=== PATIENT | male | born 1945 | race Caucasian/White ===

== ENCOUNTER 2023-05-21 13:05 | Emergency (ER) | payer MEDICARE, OTHER, SELFPAY ==
--- NOTE | ~2023-05-21 | CT_ITS ---
EXAMINATION: CT brain wo con DATE: 05/21/2023 15:27 INDICATION: Altered mental status . TECHNIQUE: Computed tomography (CT) of the head was performed without intravenous contrast. The mA wa s adjusted according to patient size. Iterative reconstruction technique was employed. The dose-lengt h product was 681.00 mGy-cm. COMPARISON: None. FINDINGS: Motion artifact is present near the vertex. No acute intracranial hemorrhage or extra-axial fluid col lection. No hydrocephalus, mass, or herniation. No acute ischemic infarct. Unremarkable dural venous sinus attenuation. No acute osseous abnormality. Minimal left maxillary and ethmoid mucosal thickening, the remaining aerated spaces are clear. Mild atrophy and chronic white matter change. Atherosclerotic intracranial calcification. 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 Right lens replacement. IMPRESSION: No acute intracranial process. Reviewed, dictated and finalized at location K. S MANAGER
--- NOTE | ~2023-05-21 | XR_ITS ---
EXAMINATION: XR chest 1V portable INDICATION: Weakness TECHNIQUE: Portable AP chest at 1345 hours COMPARISON: None available FINDINGS: The lungs are free of acute opacities. The heart size is normal. No pleural effusion or pne umothorax. IMPRESSION: 1. No acute cardiopulmonary abnormality. Reviewed, dictated and finalized at location L. DENTIAL REMODELING SUBCONTRACTOR
--- NOTE | 2023-05-21 13:13 | ECG_ITS ---
Measurements Intervals [place] Rate: 91 P: 61 CT: 254 QRS: 2 QRSD: 116 T: 34 QT: 386 QTc: 477 Interpretive Statements SINUS RHYTHM WITH FIRST DEGREE AV BLOCK RIGHT BUNDLE BRANCH BLOCK [120+ ms QRS DURATION, UPRIGHT V1, 40+ ms S IN I/aVL/V4/V5/V6] ABNORMAL ELECTROCARDIOGRAM NO PREVIOUS ECG AVAILABLE FOR COMPARISON Electronically Signed On 05-21-2023 15:39:50 SIMONIZER by Silvestre Llanos M.D.
[2023-05-21 13:15] VITALS: BP 164/86; PULSE 91; RESP 16; TEMP 37; O2SAT 100
[2023-05-21 13:37] LABS: Basophils Percent Auto 1.1 % (0.2-1.2); Eosinophils Absolute Auto 0.2 K/mm3 (0-0.3); Eosinophils Percent Auto 6.1 % (0-4.4); Hematocrit 38.7 % (42.0-52.0); Hemoglobin 12.7 g/dL (14.0-18.0); Immature Granulocyte Absolute 0.02 K/mm3 (0.00-0.031); Immature Granulocyte Percent A 0.5 % (0-0.5); Lymphocytes Absolute Auto 1.22 K/mm3 (0.9-3.2); Lymphocytes Percent Auto 32.6 % (18.3-44.2); Mean Corpuscular HGB Conc 32.8 g/dl (32-36); Mean Corpuscular Hemoglobin 31.7 pg (26-34); Mean Corpuscular Volume 96.5 fl (80-100); Mean Platelet Volume 12.8 fl (7.4-10.4); Monocytes Absolute Auto 0.5 K/mm3 (0.1-0.6); Monocytes Percent Auto 12.3 % (2.6-8.5); Neutrophils Absolute Auto 1.8 K/mm3 (1.3-6.7); Neutrophils Percent Auto 47.4 % (45.5-73.1); Platelet Count Result 107 k/mm3 (150-375); Red Blood Count 4.01 M/mm3 (4.6-6.20); Red Cell Distribution Width 14.6 % (11.5-14.5); White Blood Count 3.7 K/mm3 (4.5-10.0)
--- NOTE | 2023-05-21 13:43 | ECG_ITS ---
Measurements Intervals [place] Rate: 127 P: 254 GA: 220 QRS: 17 QRSD: 126 T: -65 QT: 329 QTc: 478 Interpretive Statements POOR ECG QUALITY BECAUSE OF BASELINE ARTIFACT ATRIAL FLUTTER WITH RAPID VENTRICULAR RESPONSE INDETERMINATE AXIS RIGHT BUNDLE BRANCH BLOCK [120+ ms QRS DURATION, UPRIGHT V1, 40+ ms S IN I/aVL/V4/V5/V6] ABNORMAL ECG Electronically Signed On 05-21-2023 15:40:49 WHEEL PRESS OPERATOR by Silvestre Llanos M.D.
--- NOTE | 2023-05-21 13:48 | PC.NURSE ---
HR increased repeat EKG
[2023-05-21 13:52] LABS: Alanine Aminotransferase 23 U/L (6-50); Albumin Level 3.6 g/dL (3.5-5.1); Alkaline Phosphatase 110 U/L (38-126); Anion Gap 3 mmol/L (8-16); Aspartate Amino Transferase 27 U/L (17-59); Bilirubin,Total 0.8 mg/dL (0.2-1.3); Blood Urea Nitrogen 17 mg/dL (9-20); Calcium 9.4 mg/dL (8.4-10.2); Carbon Dioxide 26 mmol/L (22-30); Chloride 108 mmol/L (98-107); Estimated CRCL calculation 110 ml/min; Estimated Glomerular Filt Rate > 60; Glucose 152 mg/dL (65-110); Potassium 4.2 mmol/L (3.4-5.0); Sodium 137 mmol/L (137-145)
[2023-05-21 14:16] VITALS: BP 159/94; PULSE 91; RESP 16; TEMP 36.6; O2SAT 99
[2023-05-21 14:37] LABS: Appearance Urine Clear (Clear); Bacteria Urine None Seen /hpf; Bilirubin Urine Negative (Negative); Blood Urine 2+ (Negative); Color Urine Yellow (Yellow); Glucose Urine UA Trace mg/dL (Negative); Ketones Urine Trace mg/dL (Negative); Leukocyte Esterase Ur Trace LEU/UL (Negative); Need Manual Microscopic Reviewed; Nitrate Urine Negative (Negative); Non Pathogenic Casts 0-2; Protein Urine Trace mg/dL (Negative); RBC Urine 51-100 /hpf (0-2); Specific Grav Ur 1.022 (1.001-1.035); Squamous Epithelial Cell Urine None seen /hpf (Few); Urobilinogen Urine 0.2 mg/dL (<2.0); pH Urine 5.5 (5.0-9.0)
[2023-05-21 14:38] LABS: Add Urine Microscopic? YES
[2023-05-21 15:01] VITALS: BP 148/85; PULSE 97; RESP 17; TEMP 36.7; O2SAT 97
[2023-05-21 15:49] LABS: Acetaminophen < 10 ug/mL (10-30); Ethanol < 10 mg/dL (<10); Salicylate < 1.0 mg/dL (2-20)
[2023-05-21 16:01] VITALS: BP 157/98; PULSE 101; RESP 17; TEMP 36.6; O2SAT 100
--- NOTE | 2023-05-21 16:18 | PC.NURSE ---
pt took his own sumatripin from home
--- NOTE | 2023-05-21 16:22 | ED.GENADULT ---
HPI - General Adult General Chief complaint: Weakness Stated complaint: altered LOC Time Seen by Provider: 05/21/23 14:01 History of Present Illness HPI narrative: This is a 78-year-old male, with history of TBI, PTSD, brought in by EMS for altered mental status. The patient's daughter states she found him sitting in a chair with eyes closed. He reportedly refused to speak, but held onto his cane. On arrival, EMS notes the patient was responsive to pain elicited on palpation of the right shoulder but otherwise did not respond to stimulus. Vital signs otherwise unremarkable. On interview, the patient states he was seated last night watching TV, when he saw bright white light and felt a sharp headache. He next recalls waking in the emergency department with EMS at bedside. He complains of chronic headache and anxiety related to his PTSD (triggered by hospitals). Related Data Allergies Allergy/AdvReac Type Severity Reaction Status Date / Time bacitracin Allergy Other Verified 05/21/23 16:12 [From Polysporin(bacitracin base)] neomycin Allergy Other Verified 05/21/23 16:12 [From Neosporin ([id number])] Penicillins Allergy Other Verified 05/21/23 16:12 polymyxin B Allergy Other Verified 05/21/23 16:12 [From Polysporin(bacitracin base)] tetracycline Allergy Other Verified 05/21/23 16:12 Review of Systems Review of Systems: CONSTITUTIONAL: Denies fever, chills, or sweats. CARDIOVASCULAR: Denies chest pain, palpitations, or edema. RESPIRATORY: Denies cough or dyspnea. GASTROINTESTINAL: Denies abdominal pain, nausea, vomiting, or diarrhea. GENITOURINARY: Denies dysuria or hematuria. SKIN: Denies rash or itching. MUSCULOSKELETAL: Denies back pain, joint pain, or myalgia. NEUROLOGIC: Headache Denies numbness, dizziness, or weakness. PSYCHIATRIC: Denies anxiety or depression. Exam Narrative: GENERAL: Well-developed, well-nourished, and in no acute distress. HEAD: Normocephalic, atraumatic. healing abrasion of the anterior nasal bridge EYES: PERRLA and EOMI. ENT: Mucous membranes moist. Oropharynx without tonsillar hypertrophy exudate or other lesions. = CHEST: Clear to auscultation. No respiratory distress. No wheezes rales or rhonchi HEART: Regular rate and rhythm. No murmur heard. Normal peripheral pulses. ABDOMEN: Soft, nontender, nondistended, normal active bowel sounds. EXTREMITIES: Normal range of motion. No edema. SKIN: Warm, dry, no rash. NEURO: Alert and oriented x3. No focal deficit. Moving all 4 limbs spontaneously PSYCH: Normal mood and affect. Course Course Emergency Course: 16:24 - CT head not concerning for acute intracranial process. CBC demonstrates mildly decreased white blood cell count of 3.7 and anemia of hemoglobin 12.7 ( baseline unknown ) but is otherwise unremarkable. Chemistries unremarkable. UA demonstrates trace glucose and ketones with RBCs and white blood cells, I suspect this is related to attempt to straight cath. UA not concerning for UTI in my opinion. Salicylates, acetaminophen and alcohol level negative. Chest x-ray not concerning for acute cardiopulmonary process. Initial EKG not concerning for ischemia, the patient developed tachycardia, though at the time appeared agitated with an episode of PTSD. patient is alert an oriented x3. I do not suspect an acute medical problem at this time. I suspect the patient's symptoms related to PTSD. Will trial ambulation. If the patient is study in able will discharge. I discussed these findings recommendations with the patient's daughter and the patient. They are comfortable with the plan. 17:08 - The patient was able ambulate well. Will discharge. Vital Signs Vital signs: Vital Signs Temperature 98.6 F 05/21/23 13:15 Pulse Rate 91 05/21/23 13:15 Respiratory Rate 16 05/21/23 13:15 Blood Pressure 164/86 H 05/21/23 13:15 Pulse Oximetry 100 05/21/23 13:15 Oxygen Delivery Room Air 05/21/23 1
--- NOTE | 2023-05-21 16:39 | PC.NURSE ---
ambulated in [place] without difficulty, gait steady.
[2023-05-21 17:00] VITALS: BP 148/78; PULSE 78; RESP 16; TEMP 36.7; O2SAT 100
--- NOTE | 2023-05-21 17:00 | PCCCNOTE ---
Abbey Salguero ([phone]) requested to speak to CC as father recently moved to the area from [place] after his spouse passed. His spouse was his primary caregiver and now dtr is trying to help him. He has [facility] and his records were just sent from the clinic in [place] so he can begin care with [facility] in this area. Dtr was given the VA resources and list of phone numbers. She was also given a list of private duty and home health agencies that would have to be ordered through his PCP when he gets established. She was also given the [facility] pamphlet in case the [facility] can't provide enough assistance. He currently lives in an apartment next to her but will be moving to another apt that is further away but in the same complex.
[2023-05-21 17:07] LABS: Amphetamine Screen Urine Negative (Negative); Barbiturate Screen Urine Negative (Negative); Benzodiazepines Screen Urine Negative (Negative); Cannabinoid Screen Urine Negative (Negative); Cocaine Screen Urine Negative (Negative); Methadone Screen Urine Negative (Negative); Opiate Screen Urine Positive (Negative); Phencyclidine Screen Urine Negative (Negative)
== END 2023-05-21 17:23 | disposition home or self-care (01) ==
PROVIDERS: Emergency Provider Preventive Medicine Aerospace Medicine
DX: F43.12 Post-traumatic stress disorder, chronic (principal); Z87.820 Personal history of traumatic brain injury; G43.909 Migraine, unspecified, not intractable, without status migrainosus; Z79.899 Other long term (current) drug therapy
CPT/HCPCS: 36415; 70450; 71045; 80053; 80307; 81001; 85025; 87086; 93005; 99284

== ENCOUNTER 2025-01-05 12:00 | Inpatient (IN) | payer MEDICARE, OTHER, SELFPAY ==
[2025-01-05] VITALS (17 sets, daily range): BP systolic 91–142; BP diastolic 55–91; PULSE 78–158; RESP 12–24; TEMP 36.3–36.8; O2SAT 94–100; BMI 35.4
--- NOTE | ~2025-01-05 | CT_ITS ---
EXAMINATION: CT abdomen pelvis w con DATE: 01/05/2025 14:14 INDICATION: Nausea, vomiting, and diarrhea. TECHNIQUE: Computed tomography (CT) of the abdomen and pelvis was performed with 100 mL Omnipaque 350 intravenous contrast. Automated exposure control and iterative reconstruction technique were employed. The dose-length product was 2903.06 mGy-cm. COMPARISON: None. FINDINGS: The visualized portions of the lung bases demonstrate mild atelectasis. No pleural effusion. The heart size is normal. No pericardial effusion. The liver demonstrates hypertrophy of left lateral segment and surface nodularity, consistent with cirrhosis. The gallbladder, spleen, pancreas, and adrenal glands are normal. There is cortical thinning of the kidneys. There is a 6 mm stone in left kidney. The prostate is mildly enlarged. There are no dilated loops of bowel. There are changes of appendectomy. There are no pathologically enlarged lymph nodes. There is no free intraperitoneal fluid. 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 There is severe lumbar spondylosis. There is mild chronic anterior wedging of multiple vertebral bodies. IMPRESSION: 1. Cirrhosis of the liver with portal venous hypertension. Reviewed, dictated and finalized at location E.
--- NOTE | 2025-01-05 12:42 | PC.NURSE ---
Daughter to intake desk and reports that pt passed out. When nurse approached pt, pt is awake and talking. c/o dizziness. Pt taken to triage for repeat vs and passed out again for a few seconds.
[2025-01-05 13:01] LABS: Hematocrit 41.3 % (42.0-52.0); Hemoglobin 13.6 g/dL (14.0-18.0); Immature Granulocyte Percent A 1.0 % (0-0.5); Lymphocytes Absolute Auto 1.13 K/mm3 (0.9-3.2); Mean Corpuscular HGB Conc 32.9 g/dl (32-36); Mean Corpuscular Hemoglobin 31.6 pg (26-34); Mean Corpuscular Volume 96.0 fl (80-100); Nucleated Red Blood Cells Absolute Auto 0.000 K/mm3 (0.0-0.012); Nucleated Red Blood Cells Perc 0.0 % (0.0-0.2); Platelet Count Result 165 k/mm3 (150-375); Red Blood Count 4.30 M/mm3 (4.6-6.20); White Blood Count 6.7 K/mm3 (4.5-10.0)
[2025-01-05 13:12] LABS: Alanine Aminotransferase 27 U/L (6-50); Albumin Level 3.5 g/dL (3.5-5.1); Alkaline Phosphatase 92 U/L (38-126); Anion Gap 9 mmol/L (4-12); Aspartate Amino Transferase 36 U/L (17-59); Bilirubin,Total 0.8 mg/dL (0.2-1.3); Blood Urea Nitrogen 14 mg/dL (9-20); Calcium 9.3 mg/dL (8.4-10.2); Carbon Dioxide 28 mmol/L (22-30); Chloride 97 mmol/L (98-107); Estimated CRCL calculation 86 ml/min; Estimated Glomerular Filt Rate > 60; Glucose 200 mg/dL (65-110); Lipase 73 U/L (23-300); Potassium 3.5 mmol/L (3.4-5.0); Sodium 134 mmol/L (137-145); Total Protein 6.8 g/dL (6.3-8.2)
--- NOTE | 2025-01-05 13:12 | ECG_ITS ---
Test Date: 2025-01-05 13:16:31 Measurements Intervals [place]ball Rate: 101 P: 0 VA: 0 QRS: -38 QRSD: 137 T: 1 QT: 353 QTc: 458 Interpretive Statements ATRIAL FIBRILLATION WITH RAPID VENTRICULAR RESPONSE CHANGES TO SINUS RHYTHM LEFT AXIS DEVIATION RIGHT BUNDLE BRANCH BLOCK BASELINE ARTIFACT- I, II, III, AVR, AVL, AVF, V1-V6 ABNORMAL ECG No previous ECG available for comparison Electronically Signed On 01-05-2025 14:23:25 CDT by Jim Arnold D.O.
[2025-01-05] MEDS: LACTATED RINGERS 1,000 ML 999 ML IV CONT (14:00)
[2025-01-05] MEDS: ONDANSETRON INJ 4 MG/2 ML VIAL IV PUSH (14:00)
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
[2025-01-05 14:45] LABS: Influenza A QL RT-PCR Negative (Negative); Influenza B QL RT-PCR Negative (Negative); SARS-CoV-2 RNA PCR Negative (Negative)
[2025-01-05 14:52] LABS: Add Urine Microscopic? YES; Appearance Urine Clear (Clear); Glucose Urine UA Negative (Negative); Leukocyte Esterase Ur Negative LEU/UL (Negative); Need Manual Microscopic Reviewed; Nitrate Urine Negative (Negative); Non Pathogenic Casts >20; Specific Grav Ur > 1.045 (1.001-1.035)
--- NOTE | 2025-01-05 15:24 | PC.NURSE ---
BSR completed with AR RN; patient was resting eyes closed at that time.
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
--- NOTE | 2025-01-05 17:16 | ADMGEN ---
This patient, Roni Matthews, was admitted to Medical Room 243-. Patient/family oriented to hospital policies and general routines including ID bracelet, bed and alarms, visiting hours, pain management, procedures, bathroom and other care routines, personal items, smoking policy, room service/diet, and visiting hours. Information on how to activate the Rapid Response Team has been discussed. Patient/Family are encouraged to report perceived risks to care and to ask questions if they do not understand what they are told or what they should do.
[2025-01-05] MEDS: LACTATED RINGERS 1,000 ML 125 ML IV CONT (17:26)
[2025-01-05] MEDS: ACETAMINOPHEN 325 MG TABLET 650 MG PO (18:51)
[2025-01-05] MEDS: PREGABALIN (*CRX) 75 MG CAPSULE PO (22:37)
[2025-01-05] MEDS: diphenhydrAMINE HCl CAP 25 MG CAPSULE PO (22:37)
[2025-01-05] MEDS: CIPROFLOXACIN HCL 0.3% OP SOLN 2.5 ML BTL 1 DROP EACH EYE (22:39)
[2025-01-05] MEDS: LOPERAMIDE HCL 2 MG CAPSULE PO (23:28)
[2025-01-06] VITALS (9 sets, daily range): BP systolic 90–175; BP diastolic 48–77; PULSE 56–77; RESP 12–18; TEMP 36.2–36.8; O2SAT 93–98
[2025-01-06] MEDS: LACTATED RINGERS 1,000 ML 125 ML IV CONT ×2 (01:31→12:19)
[2025-01-06 05:14] LABS: Hematocrit 30.8 % (42.0-52.0); Hemoglobin 10.1 g/dL (14.0-18.0); Immature Granulocyte Percent A 1.0 % (0-0.5); Lymphocytes Absolute Auto 1.03 K/mm3 (0.9-3.2); Mean Corpuscular HGB Conc 32.8 g/dl (32-36); Mean Corpuscular Hemoglobin 31.8 pg (26-34); Mean Corpuscular Volume 96.9 fl (80-100); Nucleated Red Blood Cells Absolute Auto 0.000 K/mm3 (0.0-0.012); Nucleated Red Blood Cells Perc 0.0 % (0.0-0.2); Platelet Count Result 111 k/mm3 (150-375); Red Blood Count 3.18 M/mm3 (4.6-6.20); White Blood Count 4.0 K/mm3 (4.5-10.0)
[2025-01-06 05:36] LABS: Alanine Aminotransferase 15 U/L (6-50); Albumin Level 2.5 g/dL (3.5-5.1); Alkaline Phosphatase 66 U/L (38-126); Anion Gap 3 mmol/L (4-12); Aspartate Amino Transferase 23 U/L (17-59); Bilirubin,Total 0.6 mg/dL (0.2-1.3); Blood Urea Nitrogen 13 mg/dL (9-20); Calcium 8.1 mg/dL (8.4-10.2); Carbon Dioxide 33 mmol/L (22-30); Chloride 96 mmol/L (98-107); Estimated CRCL calculation 72 ml/min; Estimated Glomerular Filt Rate > 60; Glucose 121 mg/dL (65-110); Magnesium 1.5 mg/dL (1.6-2.3); Potassium 2.7 mmol/L (3.4-5.0); Sodium 132 mmol/L (137-145); Total Protein 5.1 g/dL (6.3-8.2)
[2025-01-06] MEDS: POTASSIUM CHLORIDE INJ 40 MEQ in SODIUM CHLORIDE 0.9% IV 500 ML 130 MEQ IVPB (07:03)
[2025-01-06] MEDS: MAGNESIUM SULF 4 GM/WATER100ML 4 GM/100 ML BAG IVPB (07:04)
[2025-01-06] MEDS: POTASSIUM CHLORIDE 20 MEQ ER TABLET 40 MEQ PO (07:05)
[2025-01-06] MEDS: LOPERAMIDE HCL 2 MG CAPSULE PO ×3 (07:05→17:08)
[2025-01-06] MEDS: diphenhydrAMINE HCl CAP 25 MG CAPSULE PO (07:05)
[2025-01-06] MEDS: CIPROFLOXACIN HCL 0.3% OP SOLN 2.5 ML BTL 1 DROP EACH EYE ×5 (07:06→20:40)
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
[2025-01-06] MEDS: PANTOPRAZOLE 40 MG TABLET PO (10:07)
[2025-01-06] MEDS: ASPIRIN 81 MG CHEWABLE TABLET PO (10:07)
[2025-01-06] MEDS: PREGABALIN (*CRX) 75 MG CAPSULE PO ×2 (10:07→17:08)
[2025-01-06] MEDS: DIVALPROEX SODIUM ER 500 MG TAB.24H 1000 MG PO (10:07)
[2025-01-06 13:25] LABS: Anion Gap 3 mmol/L (4-12); Blood Urea Nitrogen 13 mg/dL (9-20); Calcium 7.9 mg/dL (8.4-10.2); Carbon Dioxide 32 mmol/L (22-30); Chloride 95 mmol/L (98-107); Estimated CRCL calculation 80 ml/min; Estimated Glomerular Filt Rate > 60; Glucose 201 mg/dL (65-110); Magnesium 2.4 mg/dL (1.6-2.3); Potassium 4.0 mmol/L (3.4-5.0); Sodium 130 mmol/L (137-145)
[2025-01-06] MEDS: ACETAMINOPHEN 325 MG TABLET 650 MG PO (14:36)
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
[2025-01-06] MEDS: INSULIN ASPART (*BKC) 100 UNITS/ML SUB-Q (17:09)
[2025-01-06] MEDS: ACETAMINOPHEN/CODEINE (*CRX) 300/30 MG TABLET 1 TAB PO (22:59)
[2025-01-07] VITALS (8 sets, daily range): BP systolic 105–120; BP diastolic 44–64; PULSE 62–97; RESP 16–20; TEMP 36.4–36.8; O2SAT 93–99
[2025-01-07 03:50] LABS: Hematocrit 33.0 % (42.0-52.0); Hemoglobin 10.8 g/dL (14.0-18.0); Immature Granulocyte Percent A 1.1 % (0-0.5); Lymphocytes Absolute Auto 1.12 K/mm3 (0.9-3.2); Mean Corpuscular HGB Conc 32.7 g/dl (32-36); Mean Corpuscular Hemoglobin 32.0 pg (26-34); Mean Corpuscular Volume 97.9 fl (80-100); Nucleated Red Blood Cells Absolute Auto 0.000 K/mm3 (0.0-0.012); Nucleated Red Blood Cells Perc 0.0 % (0.0-0.2); Platelet Count Result 109 k/mm3 (150-375); Red Blood Count 3.37 M/mm3 (4.6-6.20); White Blood Count 3.6 K/mm3 (4.5-10.0)
[2025-01-07 04:08] LABS: Iron 23 ug/dL (49-181)
[2025-01-07 04:10] LABS: Alanine Aminotransferase 18 U/L (6-50); Albumin Level 2.6 g/dL (3.5-5.1); Alkaline Phosphatase 93 U/L (38-126); Anion Gap 4 mmol/L (4-12); Aspartate Amino Transferase 27 U/L (17-59); Bilirubin,Total 0.4 mg/dL (0.2-1.3); Blood Urea Nitrogen 15 mg/dL (9-20); Calcium 7.9 mg/dL (8.4-10.2); Carbon Dioxide 31 mmol/L (22-30); Chloride 97 mmol/L (98-107); Estimated CRCL calculation 63 ml/min; Estimated Glomerular Filt Rate 59; Glucose 209 mg/dL (65-110); Magnesium 2.1 mg/dL (1.6-2.3); Potassium 3.8 mmol/L (3.4-5.0); Sodium 132 mmol/L (137-145); Total Protein 5.4 g/dL (6.3-8.2)
[2025-01-07 04:17] LABS: Percent Iron Saturation 14 % (20-50)
[2025-01-07 04:40] LABS: Hepatitis B Surface Antigen Negative (Negative)
[2025-01-07 04:44] LABS: Ferritin 55.20 ng/mL (11.1-264)
[2025-01-07 04:46] LABS: HAV RESULT Negative (Negative); Hepatitis B Core IgM Result Negative (Negative)
[2025-01-07] MEDS: INSULIN ASPART (*BKC) 100 UNITS/ML SUB-Q ×2 (08:26→12:06)
[2025-01-07] MEDS: LORATADINE 10 MG TABLET PO (08:29)
[2025-01-07] MEDS: FERROUS GLUCONATE 324 MG TABLET PO (08:29)
[2025-01-07] MEDS: PANTOPRAZOLE 40 MG TABLET PO (08:29)
[2025-01-07] MEDS: ASPIRIN 81 MG CHEWABLE TABLET PO (08:29)
[2025-01-07] MEDS: DIVALPROEX SODIUM ER 500 MG TAB.24H 1000 MG PO (08:29)
[2025-01-07] MEDS: PREGABALIN (*CRX) 75 MG CAPSULE PO (08:29)
[2025-01-07] MEDS: ACETAMINOPHEN 325 MG TABLET 650 MG PO (08:37)
[2025-01-07] MEDS: INSULIN GLARGINE (*BKC) 100 UNITS/ML 20 UNITS SUB-Q (12:04)
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
[2025-01-11 12:08] LABS: ANA by IFA Rfx Titer/Pattern Positive (.)
== END 2025-01-07 14:43 | disposition home or self-care (01) | DRG 392 ==
LOC: ANHED 14:23 → ANH2MED 16:55
PROVIDERS: Internal Medicine; Internal Medicine Gastroenterology; Student in an Organized Health Care Education/Training Program; Admitting Provider Family Medicine; Emergency Provider Student in an Organized Health Care Education/Training Program; Visit Provider Physician Assistant
DX: A08.4 Viral intestinal infection, unspecified (principal); K76.6 Portal hypertension; I10 Essential (primary) hypertension; I48.91 Unspecified atrial fibrillation; E86.0 Dehydration; E11.9 Type 2 diabetes mellitus without complications; D50.9 Iron deficiency anemia, unspecified; K57.30 Diverticulosis of large intestine without perforation or abscess without bleeding; K74.60 Unspecified cirrhosis of liver; F43.10 Post-traumatic stress disorder, unspecified; F60.3 Borderline personality disorder; Z20.822 Contact with and (suspected) exposure to COVID-19; Z79.82 Long term (current) use of aspirin; Z87.891 Personal history of nicotine dependence
CPT/HCPCS: 36415; 74177; 80048; 80053; 80074; 80164; 81001; 82103; 82104; 82728; 82948; 83540; 83550; 83690; 83735; 85025; 86015; 86038; 86381; 87636; 93005; 96361; 96374; 97161; 99285; A9270; G0378; J1815; J2405; J3475; J3480; J7040; J7120; Q9967

== ENCOUNTER 2025-01-08 22:15 | Emergency (ER) | payer MEDICARE, OTHER, SELFPAY ==
--- NOTE | ~2025-01-08 | CT_ITS ---
EXAMINATION: CT abdomen pelvis w con DATE: 01/09/2025 03:53 INDICATION: Abdominal pain. Vomiting. TECHNIQUE: Computed tomography (CT) of the abdomen and pelvis was performed with 100 mL Omnipaque 350 intravenous contrast. Automated exposure control and iterative reconstruction technique were employed. The dose-length product was 1475.25 mGy-cm. COMPARISON: CT abdomen and pelvis 01/05/2025 FINDINGS: The visualized portions of the lung bases demonstrate mild atelectasis. No pleural effusion. The heart size is normal. No pericardial effusion. Paraesophageal varices are noted. There is liver surface nodularity, consistent with cirrhosis. The gallbladder, spleen, pancreas, and adrenal glands are normal. There is cortical thinning of the kidneys. There is a 5 mm stone in left kidney. The prostate is mildly enlarged. There are no dilated loops of bowel. There are changes of appendectomy. There are no pathologically enlarged lymph nodes. There is a small volume of pelvic ascites. There is severe lumbar spondylosis. IMPRESSION: 1. Cirrhosis of the liver with portal venous hypertension. 2. Small volume of pelvic ascites. Reviewed, dictated and finalized at location E.
[2025-01-08 22:14] VITALS: BP 153/74; PULSE 76; RESP 20; TEMP 36.6; O2SAT 96
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
[2025-01-08] MEDS: ONDANSETRON INJ 4 MG/2 ML VIAL IV PUSH (23:50)
[2025-01-08] MEDS: FAMOTIDINE 20 MG/2 ML VIAL IV PUSH (23:50)
[2025-01-08 23:51] VITALS: BP 158/86; PULSE 68; RESP 15; TEMP 36.7; O2SAT 100
[2025-01-08 23:52] LABS: Add Urine Microscopic? NO; Appearance Urine Clear (Clear); Glucose Urine UA 2+ mg/dL (Negative); Leukocyte Esterase Ur Negative LEU/UL (Negative); Nitrate Urine Negative (Negative); Specific Grav Ur 1.024 (1.001-1.035)
[2025-01-08 23:54] VITALS: BP 158/86; PULSE 70; RESP 11; O2SAT 100
[2025-01-09] VITALS (18 sets, daily range): BP systolic 99–153; BP diastolic 58–99; PULSE 63–91; RESP 12–19; TEMP 36.8–37.1; O2SAT 96–100
[2025-01-09 00:07] LABS: Hematocrit 36.8 % (42.0-52.0); Hemoglobin 11.9 g/dL (14.0-18.0); Immature Granulocyte Percent A 1.2 % (0-0.5); Lymphocytes Absolute Auto 1.06 K/mm3 (0.9-3.2); Mean Corpuscular HGB Conc 32.3 g/dl (32-36); Mean Corpuscular Hemoglobin 31.6 pg (26-34); Mean Corpuscular Volume 97.6 fl (80-100); Nucleated Red Blood Cells Absolute Auto 0.000 K/mm3 (0.0-0.012); Nucleated Red Blood Cells Perc 0.0 % (0.0-0.2); Platelet Count Result 125 k/mm3 (150-375); Red Blood Count 3.77 M/mm3 (4.6-6.20); White Blood Count 4.3 K/mm3 (4.5-10.0)
[2025-01-09 00:10] LABS: Alanine Aminotransferase 19 U/L (6-50); Albumin Level 3.1 g/dL (3.5-5.1); Alkaline Phosphatase 96 U/L (38-126); Anion Gap 4 mmol/L (4-12); Aspartate Amino Transferase 25 U/L (17-59); Bilirubin,Total 0.4 mg/dL (0.2-1.3); Blood Urea Nitrogen 14 mg/dL (9-20); Calcium 8.2 mg/dL (8.4-10.2); Carbon Dioxide 30 mmol/L (22-30); Chloride 100 mmol/L (98-107); Estimated CRCL calculation 108 ml/min; Estimated Glomerular Filt Rate > 60; Glucose 173 mg/dL (65-110); Lipase 63 U/L (23-300); Potassium 4.2 mmol/L (3.4-5.0); Sodium 134 mmol/L (137-145); Total Protein 6.3 g/dL (6.3-8.2)
--- NOTE | 2025-01-09 05:32 | PC.NURSE ---
Pt discharged at 0510, attempted to call daughter to come and pick out hand. No answer. Pt will remain in room until we are able to make contact with the daughter as he has no pants.
--- NOTE | 2025-01-09 05:41 | PC.NURSE ---
Second message left for daughter.
--- NOTE | 2025-01-09 06:27 | PC.NURSE ---
Able to reach daughter and she is on her way.
== END 2025-01-09 06:54 | disposition home or self-care (01) ==
PROVIDERS: Emergency Provider Physician Assistant
DX: R10.13 Epigastric pain (principal); I10 Essential (primary) hypertension; E11.9 Type 2 diabetes mellitus without complications; Z87.891 Personal history of nicotine dependence; K74.60 Unspecified cirrhosis of liver; K76.6 Portal hypertension; Z79.84 Long term (current) use of oral hypoglycemic drugs; Z79.82 Long term (current) use of aspirin; Z79.899 Other long term (current) drug therapy
CPT/HCPCS: 36415; 74177; 80053; 81003; 83690; 85025; 96374; 96375; 99284; J2405; Q9967

== ENCOUNTER 2025-01-20 13:48 | Inpatient (IN) | payer MEDICARE, OTHER, SELFPAY ==
--- NOTE | ~2025-01-20 | NM_ITS ---
EXAMINATION: NM_HEPATWP_NM DATE: 01/22/2025 14:43 INDICATION: Nausea and vomiting. COMPARISON: CT 01/21/2025 TECHNIQUE: 5.1 mCi Tc-99m mebrofenin (Choletec) was administered intravenously. Scintigraphic images of the abdomen were obtained for one hour. Then, 2.5 mcg sincalide (Kinevac) IV was administered, and imaging was continued for 30 minutes. FINDINGS: There is normal clearance of radiotracer from the blood pool. There is homogeneous tracer uptake by the liver. Activity progresses to the bowel and gallbladder. Gallbladder ejection fraction (GBEF) was 78%. Note that most patients with gallbladder dysfunction have GBEF < 35%, which overlaps with the broad normal range of 10-90%. IMPRESSION: 1. Normal hepatobiliary scintigraphy. Reviewed, dictated and finalized at location E.
--- NOTE | ~2025-01-20 | CT_ITS ---
Exam: CT chest, abdomen and pelvis with contrast Clinical History: [Abdominal pain. Nausea and vomiting ] Comparison: [01/09/2025 and 01/05/2025 Technique: Multiple axial CT images of the chest, abdomen and pelvis were obtained with IV contrast. Sagittal and coronal reformatted images were obtained. FINDINGS: Lung bases: Small reticular opacities in the lower lungs likely atelectasis or scarring. Liver: Micronodular appearance to the surface of the liver similar to the prior study suggestive of cirrhosis. No intrahepatic biliary ductal dilatation. There are gastric, splenic and esophageal varices similar to the prior study. Gallbladder: Gallbladder wall thickening with a small amount of pericholecystic fat stranding. Common bile duct: [ Normal caliber.] [ No stones.] Spleen: Mild thyromegaly similar to the prior study. Pancreas: [ No mass. No pancreatic fluid collection.] Adrenals: [ No masses.] Kidneys: [ No masses. No hydronephrosis.][. Small nonobstructing left renal stones similar to the prior study.] Lymph nodes: [ No adenopathy in the abdomen or pelvis.] Stomach, small bowel and colon: Moderate amount of stool. Concentric thickening of the holley of the rectum. Differential includes incomplete rectal wall distention, proctitis or mass. Correlate clinically. Prior surgical changes noted in the right lower abdomen. Peritoneum cavity: Small amount of fluid in the pelvis. Bladder: [ Unremarkable.] Osseous structures: [ No acute fracture lesion.] [ Multilevel degenerative change in the visualized spine.] Bones appear osteopenic. Abdominal aorta: [ No aneurysm.] Additional findings: Prostate gland is mildly enlarged. IMPRESSION: 1. Gallbladder wall thickening with a small amount of pericholecystic fat stranding. Acute cholecystitis is possible. Consider an ultrasound of the gallbladder or HIDA scan for further assessment. 2. Micronodular appearance to the surface of the liver similar to the prior study suggestive of cirrhosis. 3. There are gastric, splenic and esophageal varices similar to the prior study. 4. Concentric thickening of the holley of the rectum. Differential includes incomplete rectal wall distention, proctitis or mass. Correlate clinically. Reviewed, dictated and finalized at location Q. IMPRESSION: 1. Gallbladder wall thickening with a small amount of pericholecystic fat darryn kan. Acute cholecystitis is possible. Consider an ultrasound of the gallbladde r or HIDA scan for further assessment. 2. Micronodular appearance to the surface of the liver similar to the prior srini dy suggestive of cirrhosis. 3. There are gastric, splenic and esophageal varices similar to the prior study . 4. Concentric thickening of the holley of the rectum. Differential includes inco mplete rectal wall distention, proctitis or mass. Correlate clinically.
--- NOTE | ~2025-01-20 | US_ITS ---
LIMITED ABDOMINAL ULTRASOUND INDICATION: Abnormal gallbladder on CT. Nausea and vomiting COMPARISON: Nuclear medicine hepatobiliary study from today. CT abdomen and pelvis from yesterday. FINDINGS: Liver: Visualized portions of the liver are normal. Common bile duct: Dilated distally at 7 mm. No filling defects are seen. Gallbladder: The gallbladder wall is mildly thickened. No stones or sludge were seen. Horta's sign: Negative Pancreas: The imaged portions appear normal. Right kidney: Right kidney appears normal on the images provided. IMPRESSION: Mild gallbladder wall thickening. Dilated distal CBD. Reviewed, dictated and finalized at location A.
[2025-01-20 13:50] VITALS: BP 130/75; PULSE 89; RESP 18; TEMP 36.9; O2SAT 100
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
[2025-01-20 16:34] LABS: Hematocrit 40.0 % (42.0-52.0); Hemoglobin 13.3 g/dL (14.0-18.0); Immature Granulocyte Percent A 0.6 % (0-0.5); Lymphocytes Absolute Auto 1.13 K/mm3 (0.9-3.2); Mean Corpuscular HGB Conc 33.3 g/dl (32-36); Mean Corpuscular Hemoglobin 32.1 pg (26-34); Mean Corpuscular Volume 96.6 fl (80-100); Nucleated Red Blood Cells Absolute Auto 0.000 K/mm3 (0.0-0.012); Nucleated Red Blood Cells Perc 0.0 % (0.0-0.2); Platelet Count Result 114 k/mm3 (150-375); Red Blood Count 4.14 M/mm3 (4.6-6.20); White Blood Count 4.7 K/mm3 (4.5-10.0)
[2025-01-20] MEDS: PANTOPRAZOLE SODIUM IV 40 MG VIAL IV PUSH (16:48)
[2025-01-20] MEDS: METOCLOPRAMIDE HCL INJ 10 MG/2 ML VIAL IV PUSH (16:48)
[2025-01-20 16:54] LABS: Alanine Aminotransferase 19 U/L (6-50); Albumin Level 3.3 g/dL (3.5-5.1); Alkaline Phosphatase 98 U/L (38-126); Anion Gap 6 mmol/L (4-12); Aspartate Amino Transferase 22 U/L (17-59); Bilirubin,Total 0.8 mg/dL (0.2-1.3); Blood Urea Nitrogen 16 mg/dL (9-20); Calcium 8.5 mg/dL (8.4-10.2); Carbon Dioxide 28 mmol/L (22-30); Chloride 100 mmol/L (98-107); Estimated CRCL calculation 85 ml/min; Estimated Glomerular Filt Rate > 60; Glucose 197 mg/dL (65-110); Lipase 96 U/L (23-300); Potassium 3.7 mmol/L (3.4-5.0); Sodium 134 mmol/L (137-145); Total Protein 6.3 g/dL (6.3-8.2)
[2025-01-20 17:26] LABS: Add Urine Microscopic? YES; Appearance Urine Clear (Clear); Glucose Urine UA 3+ mg/dL (Negative); Leukocyte Esterase Ur Negative LEU/UL (Negative); Nitrate Urine Negative (Negative); Non Pathogenic Casts 0-2; Specific Grav Ur 1.034 (1.001-1.035)
[2025-01-20] MEDS: fentaNYL CITRATE INJ (*CRX) 100 MCG/2 ML VIAL 50 MCG IV PUSH (17:57)
[2025-01-20 19:49] VITALS: PULSE 85; RESP 18; O2SAT 98
[2025-01-20 22:12] VITALS: BMI 35.1
--- NOTE | 2025-01-20 22:23 | ADMGEN ---
This patient, Roni Matthews, was admitted to [facility] Surg Room 312-01. Patient/family oriented to hospital policies and general routines including ID bracelet, bed and alarms, visiting hours, pain management, procedures, bathroom and other care routines, personal items, smoking policy, room service/diet, and visiting hours. Information on how to activate the Rapid Response Team has been discussed. Patient/Family are encouraged to report perceived risks to care and to ask questions if they do not understand what they are told or what they should do.
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
[2025-01-20 22:46] VITALS: BP 128/63; PULSE 93; RESP 16; TEMP 36.4; O2SAT 98
[2025-01-20] MEDS: PREGABALIN (*CRX) 75 MG CAPSULE PO (23:44)
[2025-01-21] VITALS (8 sets, daily range): BP systolic 82–118; BP diastolic 53–64; PULSE 70–94; RESP 12–20; TEMP 36.1–36.9; O2SAT 94–95
[2025-01-21] MEDS: SODIUM CHLORIDE 0.9% IV 1,000 ML 100 ML IV CONT (04:55)
[2025-01-21 05:39] LABS: Ammonia < 9 umol/L (9-30)
[2025-01-21 05:51] LABS: Hematocrit 36.5 % (42.0-52.0); Hemoglobin 11.8 g/dL (14.0-18.0); Immature Platelet Fraction Pct 11.3 % (0.9-11.2); Mean Corpuscular HGB Conc 32.3 g/dl (32-36); Mean Corpuscular Hemoglobin 32.0 pg (26-34); Mean Corpuscular Volume 98.9 fl (80-100); Platelet Count Result 74 k/mm3 (150-375); Red Blood Count 3.69 M/mm3 (4.6-6.20); White Blood Count 3.3 K/mm3 (4.5-10.0)
[2025-01-21 06:19] LABS: Anion Gap 6 mmol/L (4-12); Blood Urea Nitrogen 16 mg/dL (9-20); Calcium 8.3 mg/dL (8.4-10.2); Carbon Dioxide 28 mmol/L (22-30); Chloride 100 mmol/L (98-107); Estimated CRCL calculation 78 ml/min; Estimated Glomerular Filt Rate > 60; Glucose 144 mg/dL (65-110); Potassium 3.5 mmol/L (3.4-5.0); Sodium 134 mmol/L (137-145)
--- NOTE | 2025-01-21 07:05 | P.PNIM_ITS ---
Progress Note: A&P Assessment and Plan (1) Adult failure to thrive: Code(s): R62.7 - Adult failure to thrive Status: Acute Assessment and Plan: Patient reports that he is unable to care for himself due to intractable back pain. Has a been dependent on buying food that can be delivered because he cannot prepare his own meals. He does have some trace ketones in his urine suggesting at least some mild dehy dration likely due to nausea/vomiting. Given 1L NS. Appears euvolemic on exam. Continue Protonix. Physical therapy and occupational therapy consulted for recommendations for discharge disposition. Care coordination consult has been placed to help with arranging placement. Will order the patient's home Tylenol with codeine and Lyrica. (2) Nausea & vomiting: Qualifiers: Vomiting type: unspecified Qualified Code(s): R11.2 - Nausea with vomiting, unspecified Code(s): R11.2 - Nausea with vomiting, unspecified Status: Acute Assessment and Plan: Possibly related the [place] food however he continues to endorse nausea and generalized abdominal pain. Vomiting has resolved. Tolerating diet. Will obtain a CT abd/pelvis to assess since patient continues to have abdominal tenderness on exam and nausea (3) Atrial fibrillation: Code(s): I48.91 - Unspecified atrial fibrillation Status: Acute Assessment and Plan: EKG on 01/05 showing Afib RVR however quickly converted back and remains in sinus rhythm on exam States history of irregular heart rhythm many years ago that he believes was atrial fibrillation Remains on ASA, carvedilol. Patient states followed with his PCP Dr. Canc[facility] recently and he is continuing a cardiology workup including a heart monitor, further workup and medications to be started per PCP following workup. (4) Cirrhosis: Qualifiers: Ascites presence: unspecified Hepatic cirrhosis type: unspecified hepatic cirrhosis Qualified Code(s): K74.60 - Unspecified cirrhosis of liver Code(s): K74.60 - Unspecified cirrhosis of liver Status: Acute Assessment and Plan: Cirrhosis with portal venous hypertension diagnosed on 01/05 as seen on imaging Evaluated by GI during prior admission and noted probably related to [facility] Patient to follow up with GI in the outpatient office (5) Hypertension: Qualifiers: Hypertension type: primary hypertension Qualified Code(s): I10 - Essential (primary) hypertension Code(s): I10 - Essential (primary) hypertension Status: Chronic Assessment and Plan: Chronic, continue home medications - carvedilol 12.5 mg daily - blood pressures reviewed and stable (6) Borderline personality disorder: Code(s): F60.3 - Borderline personality disorder Status: Chronic Assessment and Plan: Ammonia level WNL Continue depakote (7) DM type 2 (diabetes mellitus, type 2): Qualifiers: Diabetes mellitus complication status: without complication 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: without chcf use Qualified Code(s): E11.9 - Type 2 diabetes mellitus without complications Code(s): E11.9 - Type 2 diabetes mellitus without complications Status: Chronic Assessment and Plan: - hypoglycemia protocol - POC blood glucose ACHS - home medication - metformin 1000 mg BID currently on hold - correct regimen ordered - low dose TIDWM Time Spent With Patient Time with patient: 25 - 35 minutes Subjective Date/time seen: 01/21/25 07:05 Interval history: 79-year-old male with a past medical history of cirrhosis, type 2 diabetes mellitus on oral medications, PTSD, borderline personality disorder, chronic back pain, diverticulitis, duodenal ulcer and essential hypertension who presented to the hospital for recurrent nausea vomiting. Patient is pleasant lying comfortably in bed. He continues to endorse weakness that he relates more to his back pain that is chronic. He denies any associated dizziness or lightheadedness. He is also endorsing ongoing nausea and abdominal pain. He states that he tolerated his breakfast well and denies any recurrence of vomiting. He continues to have bowel movements and is flatus. He has no other complaints denying chest pain, shortness breath, and palpitations Review of Systems Review of Systems: All systems reviewed & are unremarkable except as noted in HPI and below Exam Narrative: AF HR 70 RR 12 Spo2 95 BP 115/53 General: male in no acute respiratory distress who is nontoxic appearing, lying semi recumbent in bed. HEENT: Normocephalic. Atraumatic. Extraocular movement intact. Sclera clear and anicteric.No facial asymmetry. Chest: Lungs are clear to auscultation bilaterally. No wheezes or crackles. CV: Heart was regular rate and rhythm. Abd: Abdomen was soft. Generalized tenderness without guarding. Nondistended. Positive bowel sounds. Ext: No clubbing, cyanosis, or edema. DP pulses bilaterally. Neuro: Patient is alert. Speech is clear. Objective Data Vital Signs Vital Signs: Vital Signs - 24 hr 01/20/25 13:50 01/20/25 19:49 01/20/25 22:46 Temperature 98.5 F 97.6 F Pulse Rate 89 85 93 Respiratory Rate 18 18 16 Blood Pressure 130/75 128/63 Pulse Oximetry 100 98 98 Oxygen Delivery Room Air 01/20/25 22:46 01/21/25 06:00 Temperature 97.5 F L Pulse Rate 70 Respiratory Rate 12 Blood Pressure 115/53 L Pulse Oximetry 95 Oxygen Delivery Room Air Intake/Output Intake/Output: Intake & Output 01/18/25 01/19/25 01/20/25 01/21/25 23:59 23:59 23:59 23:59 Intake Total 200 Balance 200 Meds/Results Medications: Active Medications Generic Name Dose Route Start Last Admin Trade Name Freq PRN Reason Stop Dose Admin Acetaminophen/Codeine Phosphate 1 tab 01/20/25 22:42 Acetaminophen/Codeine (*Crx) 300/30 Mg Tablet PO Q6H PRN pain 7-10 Aspirin 81 mg 01/21/25 09:00 Aspirin 81 Mg Enteric Tablet PO QAM [facility] Carvedilol 12.5 mg 01/20/25 22:45 01/20/25 23:44 Carvedilol 12.5 Mg Tablet PO 12.5 mg Q12HR SATHISH Administration Dextrose 12.5 gm 01/21/25 02:31 Dextrose 50% 25 Gm/50 Ml Syringe IV PUSH PRN PRN Hypoglycemia Protocol Divalproex Sodium 500 mg 01/21/25 08:00 Divalproex Sodium Er 500 Mg Tab.24h PO DAILY@0800 [facility] Ferrous Gluconate 324 mg 01/21/25 08:00 Ferrous Gluconate 324 Mg Tablet PO DAILY@0800 [facility] Glucagon 1 mg 01/21/25 02:31 Glucagon For Inj 1 Mg Vial IM PRN PRN Hypoglycemia Protocol Glucose 15 gm 01/21/25 02:31 Glucose Oral Gel 15 Gm Of Glucse In 37.5 Gm Tube PO PRN PRN Hypoglycemia Protocol Sodium Chloride 1,000 mls @ 100 mls/hr 01/21/25 02:30 01/21/25 04:55 Normal Saline Iv IV CONT 01/21/25 12:29 100 mls/hr .Q10H SATHISH Administration Dextrose 1,000 mls @ 100 mls/hr 01/21/25 02:31 Dextrose 5% 1,000 Ml IVPB PRN PRN Hypoglycemia Protocol Insulin Aspart 2 - 5 units 01/21/25 08:00 Insulin Aspart (*Bkc) 100 Units/Ml SUB-Q TIDWM [facility] Protocol Loratadine 10 mg 01/21/25 09:00 Loratadine 10 Mg Tablet PO QAM [facility] Ondansetron HCl 4 mg 01/20/25 18:17 Ondansetron Inj 4 Mg/2 Ml Vial IV PUSH Q4H PRN Nausea Pantoprazole Sodium 40 mg 01/21/25 09:00 Pantoprazole Sodium Iv 40 Mg Vial IV PUSH QAM [facility] Pantoprazole Sodium 40 mg 01/21/25 09:00 Pantoprazole 40 Mg Tablet PO QAM [facility] Pregabalin 75 mg 01/20/25 22:45 01/20/25 23:44 Pregabalin (*Crx) 75 Mg Capsule PO 75 mg BID [facility] Administration Sumatriptan Succinate 25 mg 01/21/25 02:10 Sumatriptan Succinate 25 Mg Tablet PO Q2H PRN Migraine Headache Labs Labs: Laboratory Results - last 24 hr 01/20/25 01/20/25 01/20/25 16:28 17:05 20:59 WBC 4.7 RBC 4.14 L Hgb 13.3 L Hct 40.0 L MCV 96.6 MCH 32.1 MCHC 33.3 RDW 14.4 Plt Count 114 L MPV 12.1 H Immature Gran % (Auto) 0.6 H Neut % (Auto) 58.5 Lymph % (Auto) 24.2 [place] % (Auto) 12.2 H Eos % (Auto) 3.2 Baso % (Auto) 1.3 H Lymph # (Auto) 1.13 [place] # (Auto) 0.6 Eos # (Auto) 0.2 Baso # (Auto) 0.1 Abs Immat Gran (auto) 0.03 Absolute Neuts (auto) 2.7 Absolute Nucleated RBC 0.000 Nucleated RBC % 0.0 % Immature Plt Fraction Sodium 134 L Potassium 3.7 Chloride 100 Carbon Dioxide 28 Anion Gap 6 BUN 16 Creatinine 0.86 Estim Creat Clear Calc 85 Estimated GFR > 60 Glucose 197 H POC Capillary Glucose 152 H Calcium 8.5 Total Bilirubin 0.8 AST 22 ALT 19 Alkaline Phosphatase 98 Ammonia Total Protein 6.3 Albumin 3.3 L Lipase 96 Urine Color Dark yellow Urine Appearance Clear Urine pH 5.0 Ur Specific [place] 1.034 Urine Protein 1+ H Urine Glucose (UA) 3+ H Urine Ketones Trace H Ur Blood (Man) Negative Urine Nitrate Negative Urine Bilirubin Negative Urine Urobilinogen 1.0 Leukocyte Esterase Rfl Negative Urine RBC 0-2 Urine WBC 0-5 Ur Squamous Epith Cells None seen Urine Bacteria None seen Urine Casts 0-2 01/21/25 05:25 WBC 3.3 L RBC 3.69 L Hgb 11.8 L Hct 36.5 L MCV 98.9 MCH 32.0 MCHC 32.3 RDW 14.3 Plt Count 74 L MPV 13.2 H Immature Gran % (Auto) Neut % (Auto) Lymph % (Auto) [place] % (Auto) Eos % (Auto) Baso % (Auto) Lymph # (Auto) [place] # (Auto) Eos # (Auto) Baso # (Auto) Abs Immat Gran (auto) Absolute Neuts (auto) Absolute Nucleated RBC Nucleated RBC % % Immature Plt Fraction 11.3 H Sodium 134 L Potassium 3.5 Chloride 100 Carbon Dioxide 28 Anion Gap 6 BUN 16 Creatinine 0.95 Estim Creat Clear Calc 78 Estimated GFR > 60 Glucose 144 H POC Capillary Glucose Calcium 8.3 L Total Bilirubin AST ALT Alkaline Phosphatase Ammonia < 9 L Total Protein Albumin Lipase Urine Color Urine Appearance Urine pH Ur Specific [place] Urine Protein Urine Glucose (UA) Urine Ketones Ur Blood (Man) Urine Nitrate Urine Bilirubin Urine Urobilinogen Leukocyte Esterase Rfl Urine RBC Urine WBC Ur Squamous Epith Cells Urine Bacteria Urine Casts Quality VTE Prophylaxis VTE prophylaxis: pharmacologic ordered
[2025-01-21] MEDS: PREGABALIN (*CRX) 75 MG CAPSULE PO ×2 (11:46→17:00)
[2025-01-21] MEDS: DIVALPROEX SODIUM ER 500 MG TAB.24H PO (11:46)
[2025-01-21] MEDS: PANTOPRAZOLE 40 MG TABLET PO (11:46)
[2025-01-21] MEDS: FERROUS GLUCONATE 324 MG TABLET PO (11:46)
[2025-01-21] MEDS: ASPIRIN 81 MG ENTERIC TABLET PO (11:47)
[2025-01-21] MEDS: LORATADINE 10 MG TABLET PO (11:47)
[2025-01-21] MEDS: INSULIN ASPART (*BKC) 100 UNITS/ML SUB-Q ×2 (12:46→17:00)
[2025-01-21] MEDS: SODIUM CHLORIDE 0.9% IV 500 ML IV CONT (15:53)
[2025-01-22 05:04] VITALS: BP 115/59; PULSE 77; RESP 20; TEMP 36.7; O2SAT 94
--- NOTE | 2025-01-22 07:44 | P.PNIM_ITS ---
Progress Note: A&P Assessment and Plan (1) Adult failure to thrive: Code(s): R62.7 - Adult failure to thrive Status: Acute Assessment and Plan: Patient reports that he is unable to care for himself due to intractable back pain. Has a been dependent on buying food that can be delivered because he cannot prepare his own meals. He does have some trace ketones in his urine suggesting at least some mild dehy dration likely due to nausea/vomiting. Given 1L NS. Appears euvolemic on exam. Continue Protonix. Physical therapy and occupational therapy consulted for recommendations for discharge disposition. Care coordination consult has been placed to help with arranging placement. Will order the patient's home Tylenol with codeine and Lyrica. (2) Nausea & vomiting: Qualifiers: Vomiting type: unspecified Qualified Code(s): R11.2 - Nausea with vomiting, unspecified Code(s): R11.2 - Nausea with vomiting, unspecified Status: Acute Assessment and Plan: Possibly related the [place] food however he continues to endorse nausea and generalized abdominal pain. Vomiting has resolved. Tolerating diet. CT abdomen pelvis showed gallbladder wall thickening with a small amount of pericholecystic fat stranding. Acute cholecystitis is possible. Consider an ultrasound of the gallbladder or HIDA scan for further assessment. Zofran for ongoing nausea, continues to tolerate a diet Surgery consulted Ultrasound and HIDA scan have been ordered but are pending. Okay for patient to try a low-fat diet once testing is done. Further plans pending the results of these tests. (3) Abnormal abdominal CT scan: Code(s): R93.5 - Abnormal findings on diagnostic imaging of other abdominal regions, including retroperitoneum Status: Acute Assessment and Plan: CT abdomen/pelvis: Concentric thickening of the holley of the rectum. Differential includes incomplete rectal wall distention, proctitis or mass. Per patient last colonoscopy approximately 11 years ago at the [place] which was unremarkable WBC WNL. Denies rectal pain and rectal discharge. Will hold abx at this time. Denies any rectal bleeding or abnormal stools GI consulted (4) Atrial fibrillation: Code(s): I48.91 - Unspecified atrial fibrillation Status: Acute Assessment and Plan: EKG on 01/05 showing Afib RVR however quickly converted back and remains in sinus rhythm on exam States history of irregular heart rhythm many years ago that he believes was atrial fibrillation Remains on ASA, carvedilol. Patient states followed with his PCP Dr. Cancino at [place] recently and he is continuing a cardiology workup including a heart monitor, further workup and medications to be started per PCP following workup. 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 as seen on imaging Evaluated by GI during prior admission and noted probably related to [facility] Patient to follow up with GI in the outpatient office (6) Hypertension: Qualifiers: Hypertension type: primary hypertension Qualified Code(s): I10 - Essential (primary) hypertension Code(s): I10 - Essential (primary) hypertension Status: Chronic Assessment and Plan: Chronic, continue home medications - carvedilol 12.5 mg daily - blood pressures reviewed and stable (7) Borderline personality disorder: Code(s): F60.3 - Borderline personality disorder Status: Chronic Assessment and Plan: Ammonia level WNL Continue depakote (8) DM type 2 (diabetes mellitus, type 2): Qualifiers: Diabetes mellitus complication status: without complication 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 Qualified Code(s): E11.9 - Type 2 diabetes mellitus without complications Code(s): E11.9 - Type 2 diabetes mellitus without complications Status: Chronic Assessment and Plan: - hypoglycemia protocol - POC blood glucose ACHS - home medication - metformin 1000 mg BID currently on hold - correct regimen ordered - low dose TIDWM Time Spent With Patient Time with patient: 25 - 35 minutes Subjective Date/time seen: 01/22/25 07:44 Interval history: 79-year-old male with a past medical history of cirrhosis, type 2 diabetes mellitus on oral medications, PTSD, borderline personality disorder, chronic back pain, diverticulitis, duodenal ulcer and essential hypertension who presented to the hospital for recurrent nausea vomiting. Patient is pleasant sitting up comfortably in bed. He continues to endorse slight nausea and abdominal pain but denies any associated vomiting. He states that he continues to tolerate his diet. He denies any rectal, bloody stools, or rectal discharge. He has no other chest pain shortness a breath, palpitations. Review of Systems Review of Systems: All systems reviewed & are unremarkable except as noted in HPI and below Exam Narrative: AF HR 77 RR 20 SPO2 94 BP 115/59 General: male in no acute respiratory distress who is nontoxic appearing, lying semi recumbent in bed. HEENT: Normocephalic. Atraumatic. Extraocular movement intact. Sclera clear and anicteric.No facial asymmetry. Chest: Lungs are clear to auscultation bilaterally. No wheezes or crackles. CV: Heart was regular rate and rhythm. Abd: Abdomen was soft. Generalized tenderness without guarding. Nondistended. Positive bowel sounds. Ext: No clubbing, cyanosis, or edema. DP pulses bilaterally. Neuro: Patient is alert. Speech is clear. Objective Data Vital Signs Vital Signs: Vital Signs - 24 hr 01/21/25 11:19 01/21/25 11:46 01/21/25 13:53 Temperature 97.0 F L Pulse Rate 70 94 Respiratory Rate 16 Blood Pressure 100/54 L Pulse Oximetry 95 Oxygen Delivery Room Air 01/21/25 14:20 01/21/25 14:45 01/21/25 16:59 Temperature Pulse Rate Respiratory Rate Blood Pressure 82/58 L 118/62 Pulse Oximetry Oxygen Delivery Room Air 01/21/25 20:35 01/21/25 20:38 01/21/25 21:24 Temperature 98.5 F Pulse Rate 85 81 Respiratory Rate 20 Blood Pressure 115/64 Pulse Oximetry 94 Oxygen Delivery Room Air 01/21/25 23:18 01/22/25 05:04 Temperature 98.1 F Pulse Rate 77 Respiratory Rate 20 Blood Pressure 115/59 L Pulse Oximetry 94 94 Oxygen Delivery Room Air Intake/Output Intake/Output: Intake & Output 01/19/25 01/20/25 01/21/25 01/22/25 23:59 23:59 23:59 23:59 Intake Total 3950 240 Output Total 350 400 Balance 3600 -160 Meds/Results Medications: Active Medications Generic Name Dose Route Start Last Admin Trade Name Freq PRN Reason Stop Dose Admin Acetaminophen/Codeine Phosphate 1 tab 01/20/25 22:42 Acetaminophen/Codeine (*Crx) 300/30 Mg Tablet PO Q6H PRN pain 7-10 Aspirin 81 mg 01/21/25 09:00 01/21/25 11:47 Aspirin 81 Mg Enteric Tablet PO 81 mg QAM SATHISH Administration Carvedilol 12.5 mg 01/20/25 22:45 01/21/25 20:35 Carvedilol 12.5 Mg Tablet PO 12.5 mg Q12HR SATHISH Administration Dextrose 12.5 gm 01/21/25 02:31 Dextrose 50% 25 Gm/50 Ml Syringe IV PUSH PRN PRN Hypoglycemia Protocol Divalproex Sodium 500 mg 01/21/25 08:00 01/21/25 11:46 Divalproex Sodium Er 500 Mg Tab.24h PO 500 mg DAILY@0800 SATHISH Administration Enoxaparin Sodium 40 mg 01/22/25 09:00 Enoxaparin 40 Mg/0.4 Ml Syringe SUB-Q DAILY [facility] Ferrous Gluconate 324 mg 01/21/25 08:00 01/21/25 11:46 Ferrous Gluconate 324 Mg Tablet PO 324 mg DAILY@0800 [facility] Administration Glucagon 1 mg 01/21/25 02:31 Glucagon For Inj 1 Mg Vial IM PRN PRN Hypoglycemia Protocol Glucose 15 gm 01/21/25 02:31 Glucose Oral Gel 15 Gm Of Glucse In 37.5 Gm Tube PO PRN PRN Hypoglycemia Protocol Dextrose 1,000 mls @ 100 mls/hr 01/21/25 02:31 Dextrose 5% 1,000 Ml IVPB PRN PRN Hypoglycemia Protocol Insulin Aspart 2 - 5 units 01/21/25 08:00 01/22/25 07:43 Insulin Aspart (*Bkc) 100 Units/Ml SUB-Q Not Given TIDWM [facility] Protocol Loratadine 10 mg 01/21/25 09:00 01/21/25 11:47 Loratadine 10 Mg Tablet PO 10 mg QAM [facility] Administration Ondansetron HCl 4 mg 01/20/25 18:17 Ondansetron Inj 4 Mg/2 Ml Vial IV PUSH Q4H PRN Nausea Pantoprazole Sodium 40 mg 01/21/25 09:00 01/21/25 11:46 Pantoprazole 40 Mg Tablet PO 40 mg QAM [facility] Administration Pregabalin 75 mg 01/20/25 22:45 01/21/25 17:00 Pregabalin (*Crx) 75 Mg Capsule PO 75 mg BID [facility] Administration Sumatriptan Succinate 25 mg 01/21/25 02:10 Sumatriptan Succinate 25 Mg Tablet PO Q2H PRN Migraine Headache Radiology Results: ITS Impressions Abdomen/Pelvis CT 01/21/25 16:19 IMPRESSION: 1. Gallbladder wall thickening with a small amount of pericholecystic fat stranding. Acute cholecystitis is possible. Consider an ultrasound of the gallbladder or HIDA scan for further assessment. 2. Micronodular appearance to the surface of the liver similar to the prior study suggestive of cirrhosis. 3. There are gastric, splenic and esophageal varices similar to the prior study. 4. Concentric thickening of the holley of the rectum. Differential includes incomplete rectal wall distention, proctitis or mass. Correlate clinically. Labs Labs: Laboratory Results - last 24 hr 01/21/25 01/21/25 01/21/25 11:19 16:19 20:33 POC Capillary Glucose 278 H 209 H 222 H 01/22/25 07:30 POC Capillary Glucose 172 H Quality VTE Prophylaxis VTE prophylaxis: pharmacologic ordered
[2025-01-22 08:42] VITALS: PULSE 77
[2025-01-22] MEDS: FERROUS GLUCONATE 324 MG TABLET PO (08:42)
[2025-01-22] MEDS: ASPIRIN 81 MG ENTERIC TABLET PO (08:42)
[2025-01-22] MEDS: DIVALPROEX SODIUM ER 500 MG TAB.24H PO (08:42)
[2025-01-22] MEDS: LORATADINE 10 MG TABLET PO (08:42)
[2025-01-22] MEDS: PANTOPRAZOLE 40 MG TABLET PO (08:44)
[2025-01-22] MEDS: PREGABALIN (*CRX) 75 MG CAPSULE PO ×2 (08:44→17:11)
[2025-01-22 08:54] LABS: Hematocrit 36.7 % (42.0-52.0); Hemoglobin 11.7 g/dL (14.0-18.0); Immature Platelet Fraction Pct 10.7 % (0.9-11.2); Mean Corpuscular HGB Conc 31.9 g/dl (32-36); Mean Corpuscular Hemoglobin 31.1 pg (26-34); Mean Corpuscular Volume 97.6 fl (80-100); Platelet Count Result 67 k/mm3 (150-375); Red Blood Count 3.76 M/mm3 (4.6-6.20); White Blood Count 2.8 K/mm3 (4.5-10.0)
[2025-01-22 09:15] LABS: Alanine Aminotransferase 15 U/L (6-50); Albumin Level 3.0 g/dL (3.5-5.1); Alkaline Phosphatase 84 U/L (38-126); Anion Gap 3 mmol/L (4-12); Aspartate Amino Transferase 23 U/L (17-59); Bilirubin,Total 0.6 mg/dL (0.2-1.3); Blood Urea Nitrogen 14 mg/dL (9-20); Calcium 8.4 mg/dL (8.4-10.2); Carbon Dioxide 29 mmol/L (22-30); Chloride 104 mmol/L (98-107); Estimated CRCL calculation 83 ml/min; Estimated Glomerular Filt Rate > 60; Glucose 175 mg/dL (65-110); Potassium 3.9 mmol/L (3.4-5.0); Sodium 136 mmol/L (137-145); Total Protein 5.8 g/dL (6.3-8.2)
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
[2025-01-22 11:19] LABS: INR 1.2; Prothrombin Time 14.6 Seconds (11.1-14.7)
[2025-01-22 11:20] LABS: Partial Thromboplastin Time 25.4 Seconds (22.3-36.8)
[2025-01-22] MEDS: INSULIN ASPART (*BKC) 100 UNITS/ML SUB-Q (12:21)
--- NOTE | 2025-01-22 12:40 | ECG_ITS ---
Test Date: 2025-01-22 14:50:07 Measurements Intervals [place] Rate: 61 P: 1 ME: 252 QRS: -9 QRSD: 144 T: 30 QT: 421 QTc: 426 Interpretive Statements SINUS RHYTHM WITH FIRST DEGREE AV BLOCK RIGHT BUNDLE BRANCH BLOCK BASELINE ARTIFACT- I, II, III, AVR, AVL, AVF, V1, V3 ABNORMAL ECG Compared to ECG 01/05/2025 13:16:31 Atrial fibrillation no longer present Electronically Signed On 01-22-2025 15:07:15 CDT by Jim Arnold D.O.
--- NOTE | 2025-01-22 13:21 | PCOTNOTE ---
Patient out of the room at this time. Patient down for testing.
[2025-01-22 14:00] VITALS: BP 142/72; PULSE 63; RESP 18; TEMP 36.3; O2SAT 100
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
[2025-01-22 19:54] VITALS: BP 141/77; PULSE 75; RESP 18; TEMP 37.3; O2SAT 100
[2025-01-22 21:49] VITALS: PULSE 65
[2025-01-23 03:54] VITALS: BP 114/56; PULSE 68; RESP 16; TEMP 36.9; O2SAT 97
[2025-01-23 06:19] LABS: Hematocrit 35.0 % (42.0-52.0); Hemoglobin 11.5 g/dL (14.0-18.0); Immature Platelet Fraction Pct 12.4 % (0.9-11.2); Mean Corpuscular HGB Conc 32.9 g/dl (32-36); Mean Corpuscular Hemoglobin 31.9 pg (26-34); Mean Corpuscular Volume 97.0 fl (80-100); Red Blood Count 3.61 M/mm3 (4.6-6.20); White Blood Count 2.8 K/mm3 (4.5-10.0)
[2025-01-23 06:28] LABS: Alanine Aminotransferase 14 U/L (6-50); Albumin Level 2.8 g/dL (3.5-5.1); Alkaline Phosphatase 95 U/L (38-126); Anion Gap 3 mmol/L (4-12); Aspartate Amino Transferase 20 U/L (17-59); Bilirubin,Total 0.3 mg/dL (0.2-1.3); Blood Urea Nitrogen 13 mg/dL (9-20); Calcium 8.2 mg/dL (8.4-10.2); Carbon Dioxide 30 mmol/L (22-30); Chloride 101 mmol/L (98-107); Estimated CRCL calculation 83 ml/min; Estimated Glomerular Filt Rate > 60; Glucose 239 mg/dL (65-110); Potassium 3.3 mmol/L (3.4-5.0); Sodium 134 mmol/L (137-145); Total Protein 5.5 g/dL (6.3-8.2)
[2025-01-23 06:33] LABS: Platelet Count Result 65 k/mm3 (150-375)
--- NOTE | 2025-01-23 08:08 | P.PNIM_ITS ---
Progress Note: A&P Assessment and Plan (1) Adult failure to thrive: Code(s): R62.7 - Adult failure to thrive Status: Acute Assessment and Plan: Patient reports that he is unable to care for himself due to intractable back pain. Has a been dependent on buying food that can be delivered because he cannot prepare his own meals. He does have some trace ketones in his urine suggesting at least some mild dehy dration likely due to nausea/vomiting. Given 1L NS. Appears euvolemic on exam. Continue Protonix. Will order the patient's home Tylenol with codeine and Lyrica. Physical therapy and occupational therapy recommending SNF placement Care coordination consult has been placed to help with arranging placement. (2) Nausea & vomiting: Qualifiers: Vomiting type: unspecified Qualified Code(s): R11.2 - Nausea with vomiting, unspecified Code(s): R11.2 - Nausea with vomiting, unspecified Status: Acute Assessment and Plan: Possibly related the [place] food however he continues to endorse nausea and generalized abdominal pain. Vomiting has resolved. Tolerating diet. CT abdomen pelvis showed gallbladder wall thickening with a small amount of pericholecystic fat stranding. Acute cholecystitis is possible. Consider an ultrasound of the gallbladder or HIDA scan for further assessment. Zofran for ongoing nausea, continues to tolerate a diet GI consulted Seems to be sequela of a prior gastroenteritis, causing upper GI dysmotility, characterized by nausea and sometimes vomiting. Advance to soft diet tomorrow morning and if tolerated he can be discharged home with follow-up in our clinic. Surgery consulted HIDA scan unremarkable Abdomen US showed mild gallbladder wall thickening and dilated distal CBD Okay for patient to try a low-fat diet (3) Abnormal abdominal CT scan: Code(s): R93.5 - Abnormal findings on diagnostic imaging of other abdominal regions, including retroperitoneum Status: Acute Assessment and Plan: CT abdomen/pelvis: Concentric thickening of the holley of the rectum. Differential includes incomplete rectal wall distention, proctitis or mass. Per patient last colonoscopy approximately 11 years ago at the [facility] which was unremarkable WBC WNL. Denies rectal pain and rectal discharge. Will hold abx at this time. Denies any rectal bleeding or abnormal stools Discussed with GI Dr. Sanders and patient will need an outpatient colonoscopy (4) Atrial fibrillation: Code(s): I48.91 - Unspecified atrial fibrillation Status: Acute Assessment and Plan: EKG on 01/05 showing Afib RVR however quickly converted back and remains in sinus rhythm on exam States history of irregular heart rhythm many years ago that he believes was atrial fibrillation Remains on ASA, carvedilol. Patient states followed with his PCP Dr. Cancino at [facility] recently and he is continuing a cardiology workup including a heart monitor, further workup and medications to be started per PCP following workup. 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 as seen on imaging Evaluated by GI during prior admission and noted probably related to [facility] Patient to follow up with GI in the outpatient office (6) Hypertension: Qualifiers: Hypertension type: primary hypertension Qualified Code(s): I10 - Essential (primary) hypertension Code(s): I10 - Essential (primary) hypertension Status: Chronic Assessment and Plan: Chronic, continue home medications - carvedilol 12.5 mg daily - blood pressures reviewed and stable (7) Borderline personality disorder: Code(s): F60.3 - Borderline personality disorder Status: Chronic Assessment and Plan: Ammonia level WNL Continue depakote (8) DM type 2 (diabetes mellitus, type 2): Qualifiers: Diabetes mellitus complication status: without complication Diabetes mellitus termite helper insulin use: without senior living use Qualified Code(s): E11.9 - Type 2 diabetes mellitus without complications Code(s): E11.9 - Type 2 diabetes mellitus without complications Status: Chronic Assessment and Plan: - hypoglycemia protocol - POC blood glucose ACHS - home medication - metformin 1000 mg BID currently on hold - correct regimen ordered - low dose TIDWM Time Spent With Patient Time with patient: 25 - 35 minutes Subjective Date/time seen: 01/23/25 08:08 Interval history: 79-year-old male with a past medical history of cirrhosis, type 2 diabetes mellitus on oral medications, PTSD, borderline personality disorder, chronic back pain, diverticulitis, duodenal ulcer and essential hypertension who presented to the hospital for recurrent nausea vomiting. Review of Systems Review of Systems: All systems reviewed & are unremarkable except as noted in HPI and below Exam Narrative: AF HR General: male in no acute respiratory distress who is nontoxic appearing, lying semi recumbent in bed. HEENT: Normocephalic. Atraumatic. Extraocular movement intact. Sclera clear and anicteric.No facial asymmetry. Chest: Lungs are clear to auscultation bilaterally. No wheezes or crackles. CV: Heart was regular rate and rhythm. Abd: Abdomen was soft. Generalized tenderness without guarding. Nondistended. Positive bowel sounds. Ext: No clubbing, cyanosis, or edema. DP pulses bilaterally. Neuro: Patient is alert. Speech is clear. Objective Data Vital Signs Vital Signs: Vital Signs - 24 hr 01/22/25 08:42 01/22/25 14:00 01/22/25 19:54 Temperature 97.3 F L 99.1 F Pulse Rate 77 63 75 Respiratory Rate 18 18 Blood Pressure 142/72 H 141/77 H Pulse Oximetry 100 100 Oxygen Delivery 01/22/25 21:49 01/22/25 21:49 01/23/25 03:54 Temperature 98.5 F Pulse Rate 65 68 Respiratory Rate 16 Blood Pressure 114/56 L Pulse Oximetry 97 Oxygen Delivery Room Air Intake/Output Intake/Output: Intake & Output 01/20/25 01/21/25 01/22/25 01/23/25 23:59 23:59 23:59 23:59 Intake Total 3950 1357 480 Output Total 350 900 0 Balance 3600 457 480 Meds/Results Medications: Active Medications Generic Name Dose Route Start Last Admin Trade Name Freq PRN Reason Stop Dose Admin Acetaminophen/Codeine Phosphate 1 tab 01/20/25 22:42 Acetaminophen/Codeine (*Crx) 300/30 Mg Tablet PO Q6H PRN pain 7-10 Aspirin 81 mg 01/21/25 09:00 01/22/25 08:42 Aspirin 81 Mg Enteric Tablet PO 81 mg QAM SATHISH Administration Carvedilol 12.5 mg 01/20/25 22:45 01/22/25 21:49 Carvedilol 12.5 Mg Tablet PO 12.5 mg Q12HR SATHISH Administration Dextrose 12.5 gm 01/21/25 02:31 Dextrose 50% 25 Gm/50 Ml Syringe IV PUSH PRN PRN Hypoglycemia Protocol Divalproex Sodium 500 mg 01/21/25 08:00 01/22/25 08:42 Divalproex Sodium Er 500 Mg Tab.24h PO 500 mg DAILY@0800 SATHISH Administration Enoxaparin Sodium 40 mg 01/22/25 09:00 01/22/25 08:57 Enoxaparin 40 Mg/0.4 Ml Syringe SUB-Q Not Given DAILY [facility] Ferrous Gluconate 324 mg 01/21/25 08:00 01/22/25 08:42 Ferrous Gluconate 324 Mg Tablet PO 324 mg DAILY@0800 SATHISH Administration Glucagon 1 mg 01/21/25 02:31 Glucagon For Inj 1 Mg Vial IM PRN PRN Hypoglycemia Protocol Glucose 15 gm 01/21/25 02:31 Glucose Oral Gel 15 Gm Of Glucse In 37.5 Gm Tube PO PRN PRN Hypoglycemia Protocol Dextrose 1,000 mls @ 100 mls/hr 01/21/25 02:31 Dextrose 5% 1,000 Ml IVPB PRN PRN Hypoglycemia Protocol Insulin Aspart 2 - 5 units 01/21/25 08:00 01/22/25 17:08 Insulin Aspart (*Bkc) 100 Units/Ml SUB-Q Not Given TIDWM [facility] Protocol Loratadine 10 mg 01/21/25 09:00 01/22/25 08:42 Loratadine 10 Mg Tablet PO 10 mg QAM SATHISH Administration Ondansetron HCl 4 mg 01/20/25 18:17 Ondansetron Inj 4 Mg/2 Ml Vial IV PUSH Q4H PRN Nausea Pregabalin 75 mg 01/20/25 22:45 01/22/25 17:11 Pregabalin (*Crx) 75 Mg Capsule PO 75 mg BID SATHISH Administration Sumatriptan Succinate 25 mg 01/21/25 02:10 Sumatriptan Succinate 25 Mg Tablet PO Q2H PRN Migraine Headache Radiology Results: ITS Impressions Abdomen/Pelvis CT 01/21/25 16:19 IMPRESSION: 1. Gallbladder wall thickening with a small amount of pericholecystic fat stranding. Acute cholecystitis is possible. Consider an ultrasound of the gallbladder or HIDA scan for further assessment. 2. Micronodular appearance to the surface of the liver similar to the prior study suggestive of cirrhosis. 3. There are gastric, splenic and esophageal varices similar to the prior study. 4. Concentric thickening of the holley of the rectum. Differential includes incomplete rectal wall distention, proctitis or mass. Correlate clinically. Hepatobiliary Scan Nuclear Medicine 01/22/25 14:44 IMPRESSION: 1. Normal hepatobiliary scintigraphy. Abdomen Ultrasound 01/22/25 15:49 IMPRESSION: Mild gallbladder wall thickening. Dilated distal CBD. Labs Labs: Laboratory Results - last 24 hr 01/22/25 01/22/25 01/22/25 08:17 10:56 11:49 WBC 2.8 L RBC 3.76 L Hgb 11.7 L Hct 36.7 L MCV 97.6 MCH 31.1 MCHC 31.9 L RDW 14.3 Plt Count 67 L MPV 13.6 H % Immature Plt Fraction 10.7 PT 14.6 INR 1.2 APTT 25.4 Sodium 136 L Potassium 3.9 Chloride 104 Carbon Dioxide 29 Anion Gap 3 L BUN 14 Creatinine 0.88 Estim Creat Clear Calc 83 Estimated GFR > 60 Glucose 175 H POC Capillary Glucose 270 H Calcium 8.4 Total Bilirubin 0.6 AST 23 ALT 15 Alkaline Phosphatase 84 Total Protein 5.8 L Albumin 3.0 L 01/22/25 01/22/25 01/23/25 17:00 19:53 05:47 WBC 2.8 L RBC 3.61 L Hgb 11.5 L Hct 35.0 L MCV 97.0 MCH 31.9 MCHC 32.9 RDW 14.1 Plt Count 65 L MPV 13.7 H % Immature Plt Fraction 12.4 H PT INR APTT Sodium 134 L Potassium 3.3 L Chloride 101 Carbon Dioxide 30 Anion Gap 3 L BUN 13 Creatinine 0.88 Estim Creat Clear Calc 83 Estimated GFR > 60 Glucose 239 H POC Capillary Glucose 160 H 271 H Calcium 8.2 L Total Bilirubin 0.3 AST 20 ALT 14 Alkaline Phosphatase 95 Total Protein 5.5 L Albumin 2.8 L Quality VTE Prophylaxis VTE prophylaxis: pharmacologic ordered
[2025-01-23] MEDS: INSULIN ASPART (*BKC) 100 UNITS/ML SUB-Q (09:29)
[2025-01-23] MEDS: PREGABALIN (*CRX) 75 MG CAPSULE PO (09:29)
[2025-01-23] MEDS: DIVALPROEX SODIUM ER 500 MG TAB.24H PO (09:29)
[2025-01-23 09:30] VITALS: PULSE 68
[2025-01-23] MEDS: FERROUS GLUCONATE 324 MG TABLET PO (09:30)
[2025-01-23] MEDS: ASPIRIN 81 MG ENTERIC TABLET PO (09:30)
[2025-01-23] MEDS: LORATADINE 10 MG TABLET PO (09:31)
--- NOTE | 2025-01-23 12:23 | PM.PNGS ---
Progress Note: A&P Assessment and Plan (1) Abnormal abdominal CT scan: Code(s): R93.5 - Abnormal findings on diagnostic imaging of other abdominal regions, including retroperitoneum Status: Acute Assessment and Plan: CTs suggestive of gallbladder wall thickening and possibly cholecystitis. Ultrasound of the gallbladder was negative. There was also noted mild gallbladder wall thickening and a 7 mm common bile duct. HIDA scan was normal with an ejection fraction of 78%. Patient has been tolerating liquids quite well. His abdominal exam is negative. I have no plans for further evaluation or intervention for the patient's gallbladder. I spoke to the hospitalist, Aye Lombardi, and let her know that from my standpoint patient is okay to be discharged. Plans are to follow-up with gastroenterology but [facility] no [facility] for [facility] follow-up. Subjective Subjective Date/Time Seen: 01/23/25 12:23 Patient reports: no new complaints, tolerating liquids well, bowel movement and afebrile Review of Systems Review of Systems: All systems reviewed & are unremarkable except as noted in HPI and below (HPI) Exam Const: General: alert and awake GI: Inspection: non-distended and obesity GI Palp: Yes Soft to palpation, No Tenderness to palpation present (GI) and No Palpable mass present Objective Data Vital Signs Vital Signs: Vital Signs - 24 hr 01/22/25 14:00 01/22/25 19:54 01/22/25 21:49 Temperature 36.3 C L 37.3 C Pulse Rate 63 75 65 Respiratory Rate 18 18 Blood Pressure 142/72 H 141/77 H Pulse Oximetry 100 100 Oxygen Delivery 01/22/25 21:49 01/23/25 03:54 01/23/25 09:30 Temperature 36.9 C Pulse Rate 68 68 Respiratory Rate 16 Blood Pressure 114/56 L Pulse Oximetry 97 Oxygen Delivery Room Air Intake/Output Intake/Output: Intake & Output 01/20/25 01/21/25 01/22/25 01/23/25 23:59 23:59 23:59 23:59 Intake Total 3950 1357 480 Output Total 350 900 0 Balance 3600 457 480 Meds/Results Medications: Active Medications Generic Name Dose Route Start Last Admin Trade Name Freq PRN Reason Stop Dose Admin Acetaminophen/Codeine Phosphate 1 tab 01/20/25 22:42 Acetaminophen/Codeine (*Crx) 300/30 Mg Tablet PO Q6H PRN pain 7-10 Aspirin 81 mg 01/21/25 09:00 01/23/25 09:30 Aspirin 81 Mg Enteric Tablet PO 81 mg QAM SATHISH Administration Carvedilol 12.5 mg 01/20/25 22:45 01/23/25 09:30 Carvedilol 12.5 Mg Tablet PO 12.5 mg Q12HR SATHISH Administration Dextrose 12.5 gm 01/21/25 02:31 Dextrose 50% 25 Gm/50 Ml Syringe IV PUSH PRN PRN Hypoglycemia Protocol Divalproex Sodium 500 mg 01/21/25 08:00 01/23/25 09:29 Divalproex Sodium Er 500 Mg Tab.24h PO 500 mg DAILY@0800 [facility] Administration Enoxaparin Sodium 40 mg 01/22/25 09:00 01/23/25 09:31 Enoxaparin 40 Mg/0.4 Ml Syringe SUB-Q Not Given DAILY [facility] Ferrous Gluconate 324 mg 01/21/25 08:00 01/23/25 09:30 Ferrous Gluconate 324 Mg Tablet PO 324 mg DAILY@0800 SATHISH Administration Glucagon 1 mg 01/21/25 02:31 Glucagon For Inj 1 Mg Vial IM PRN PRN Hypoglycemia Protocol Glucose 15 gm 01/21/25 02:31 Glucose Oral Gel 15 Gm Of Glucse In 37.5 Gm Tube PO PRN PRN Hypoglycemia Protocol Dextrose 1,000 mls @ 100 mls/hr 01/21/25 02:31 Dextrose 5% 1,000 Ml IVPB PRN PRN Hypoglycemia Protocol Insulin Aspart 2 - 5 units 01/21/25 08:00 01/23/25 09:29 Insulin Aspart (*Bkc) 100 Units/Ml SUB-Q 2 units TIDWM SATHISH Administration Protocol Loratadine 10 mg 01/21/25 09:00 01/23/25 09:31 Loratadine 10 Mg Tablet PO 10 mg QAM [facility] Administration Ondansetron HCl 4 mg 01/20/25 18:17 Ondansetron Inj 4 Mg/2 Ml Vial IV PUSH Q4H PRN Nausea Pregabalin 75 mg 01/20/25 22:45 01/23/25 09:29 Pregabalin (*Crx) 75 Mg Capsule PO 75 mg BID SATHISH Administration Sumatriptan Succinate 25 mg 01/21/25 02:10 Sumatriptan Succinate 25 Mg Tablet PO Q2H PRN Migraine Headache Radiology Results: ITS Impressions Abdomen/Pelvis CT 01/21/25 16:19 IMPRESSION: 1. Gallbladder wall thickening with a small amount of pericholecystic fat stranding. Acute cholecystitis is possible. Consider an ultrasound of the gallbladder or HIDA scan for further assessment. 2. Micronodular appearance to the surface of the liver similar to the prior study suggestive of cirrhosis. 3. There are gastric, splenic and esophageal varices similar to the prior study. 4. Concentric thickening of the holley of the rectum. Differential includes incomplete rectal wall distention, proctitis or mass. Correlate clinically. Hepatobiliary Scan Nuclear Medicine 01/22/25 14:44 IMPRESSION: 1. Normal hepatobiliary scintigraphy. Abdomen Ultrasound 01/22/25 15:49 IMPRESSION: Mild gallbladder wall thickening. Dilated distal CBD. Labs Labs: Laboratory Results - last 24 hr 01/22/25 01/22/25 01/23/25 17:00 19:53 05:47 WBC 2.8 L RBC 3.61 L Hgb 11.5 L Hct 35.0 L MCV 97.0 MCH 31.9 MCHC 32.9 RDW 14.1 Plt Count 65 L MPV 13.7 H % Immature Plt Fraction 12.4 H Sodium 134 L Potassium 3.3 L Chloride 101 Carbon Dioxide 30 Anion Gap 3 L BUN 13 Creatinine 0.88 Estim Creat Clear Calc 83 Estimated GFR > 60 Glucose 239 H POC Capillary Glucose 160 H 271 H Calcium 8.2 L Total Bilirubin 0.3 AST 20 ALT 14 Alkaline Phosphatase 95 Total Protein 5.5 L Albumin 2.8 L 01/23/25 01/23/25 08:02 11:23 WBC RBC Hgb Hct MCV MCH MCHC RDW Plt Count MPV % Immature Plt Fraction Sodium Potassium Chloride Carbon Dioxide Anion Gap BUN Creatinine Estim Creat Clear Calc Estimated GFR Glucose POC Capillary Glucose 227 H 184 H Calcium Total Bilirubin AST ALT Alkaline Phosphatase Total Protein Albumin
[2025-01-23 14:00] VITALS: BP 149/71; PULSE 79; RESP 18; TEMP 36.3; O2SAT 100
--- NOTE | 2025-01-23 15:04 | P.DS_ITS ---
DS: Admitting Diagnosis Discharge Date 01/23/2025 Admitting Diagnosis adult failure to thrive nausea/vomiting abnormal abdominal ct afib cirrhosis htn borderline personality disorder dm DS: Discharge Diagnosis Discharge Diagnosis (1) Adult failure to thrive: Code(s): R62.7 - Adult failure to thrive Status: Acute (2) Nausea & vomiting: Qualifiers: Vomiting type: unspecified Qualified Code(s): R11.2 - Nausea with vomiting, unspecified Code(s): R11.2 - Nausea with vomiting, unspecified Status: Acute (3) Abnormal abdominal CT scan: Code(s): R93.5 - Abnormal findings on diagnostic imaging of other abdominal regions, including retroperitoneum Status: Acute (4) Atrial fibrillation: Code(s): I48.91 - Unspecified atrial fibrillation Status: Acute (5) Cirrhosis: Qualifiers: Ascites presence: unspecified Hepatic cirrhosis type: unspecified hepatic cirrhosis Qualified Code(s): K74.60 - Unspecified cirrhosis of liver Code(s): K74.60 - Unspecified cirrhosis of liver Status: Acute (6) Hypertension: Qualifiers: Hypertension type: primary hypertension Qualified Code(s): I10 - Essential (primary) hypertension Code(s): I10 - Essential (primary) hypertension Status: Chronic (7) Borderline personality disorder: Code(s): F60.3 - Borderline personality disorder Status: Chronic (8) DM type 2 (diabetes mellitus, type 2): Qualifiers: Diabetes mellitus complication status: without complication Diabetes mellitus care home insulin use: without extermination supervisor use Qualified Code(s): E11.9 - Type 2 diabetes mellitus without complications Code(s): E11.9 - Type 2 diabetes mellitus without complications Status: Chronic DS: Summary Hospital Course Reason for hospitalization: adult failure to thrive nausea/vomiting abnormal abdominal ct afib cirrhosis htn borderline personality disorder dm Hospital Course: 79-year-old male with a past medical history of cirrhosis, type 2 diabetes mellitus on oral medications, PTSD, borderline personality disorder, chronic back pain, diverticulitis, duodenal ulcer and essential hypertension who presented to the hospital for recurrent nausea vomiting. Patient not meeting sepsis criteria on admission. CT abdomen pelvis showed gallbladder wall thickening with a small amount of pericholecystic fat stranding. Acute cholecystitis is possible. HIDA scan was unremarkable and abdomen US showed mild gallbladder wall thickening with a dilated distal CBD. Surgery evaluated patient and no acute surgical intervention required. GI notes that the nausea/vomiting likely to be sequela of a prior gastroenteritis, causing upper GI dysmotility. No plan for GI intervention. Patient was cleared for discharge from both surgery and GI perspective. Prior to discharge patients nausea/vomiting/abdominal pain had resolved and he tolerated his diet. Discussed with patient that he is to continue the low fiber diet at time of discharge. Incidentally the CT abdomen/pelvis also showed concentric thickening of the holley of the rectum. Differential includes incomplete rectal wall distention, proctitis or mass. Patient last colonoscopy [address] which he states was unremarkable. Discussed with Dr. Sanders and patient to follow up outpatient for colonoscopy. Patient is to also follow up with GI in regards to his new cirrhosis diagnosis. On admission patient reported that he was having difficulty caring for himself at home due to intractable back pain that left him dependent on buying food that could be delivered as he could not prepare his own meals. He was initially in terested in placement and physical therapy and occupational therapy were both recommending SNF placement at time of discharge. Prior to patient being discharge he was adamant that he did not want placement for ongoing therapy. Had a lengthy discussion with patient that physical therapy and occupational therapy recommended placement for therapy especially since he was concerned about caring for himself at home however again patient notes he wishes to go home at time of discharge. Patient is agreeable to home health which is being set up per care coordination. Patient had no complaints at time of discharge denying chest pain, shortness a breath, palpitations, nausea/vomiting, abdominal pain , and dizziness/lightheadedness. Patient was able to tolerate a low-fiber diet which he is to continue at time discharge. Patient discharged home with home health in a stable condition. He is to follow-up with his primary care provider in 1 week and the specialties as scheduled. Status at Discharge Functional status at discharge: uses cane/walker Time Spent with Patient Time attestation: Total time spent providing and/or coordinating discharge services: Time spent: Greater than 30 minutes Exam Narrative: AF HR 79 RR 18 Spo2 100 BP 149/71 General: male in no acute respiratory distress who is nontoxic appearing, sitting up in bed. HEENT: Normocephalic. Atraumatic. Extraocular movement intact. Sclera clear and anicteric.No facial asymmetry. Chest: Lungs are clear to auscultation bilaterally. No wheezes or crackles. CV: Heart was regular rate and rhythm. Abd: Abdomen was soft. Nontender. Nondistended. Positive bowel sounds. Ext: No clubbing, cyanosis, or edema. DP pulses bilaterally. Neuro: Patient is alert and oriented x3. Speech is clear. DS: Data Data Completed and Pending Completed studies during hospitalization: abdomen us hepatobiliary scan nm abdomen/pelvis ct Labs on day of discharge: Labs from last 24 hours 01/23/25 01/23/25 01/23/25 11:23 08:02 05:47 WBC 2.8 L RBC 3.61 L Hgb 11.5 L Hct 35.0 L MCV 97.0 MCH 31.9 MCHC 32.9 RDW 14.1 Plt Count 65 L MPV 13.7 H % Immature Plt Fraction 12.4 H Sodium 134 L Potassium 3.3 L Chloride 101 Carbon Dioxide 30 Anion Gap 3 L BUN 13 Creatinine 0.88 Estim Creat Clear Calc 83 Estimated GFR > 60 Glucose 239 H POC Capillary Glucose 184 H 227 H Calcium 8.2 L Total Bilirubin 0.3 AST 20 ALT 14 Alkaline Phosphatase 95 Total Protein 5.5 L Albumin 2.8 L 01/22/25 01/22/25 19:53 17:00 WBC RBC Hgb Hct MCV MCH MCHC RDW Plt Count MPV % Immature Plt Fraction Sodium Potassium Chloride Carbon Dioxide Anion Gap BUN Creatinine Estim Creat Clear Calc Estimated GFR Glucose POC Capillary Glucose 271 H 160 H Calcium Total Bilirubin AST ALT Alkaline Phosphatase Total Protein Albumin Discharge Plan Discharge Attending physician on discharge: Houston Sena Consulting providers: Brissa Lombardi Discharging Clinician: Houston Sena Anticipated Discharge Date/Time: 01/23/25 11:48 Patient Disposition: Home with Home Health Service Activity: as tolerated Diet: as tolerated and low fiber Discharge Instructions: Discharge disposition: Patient admitted to the hospital for nausea/vomiting Evaluated by GI and thought to be related to gastroenteritis Evaluated by surgery and no acute intervention required at this time Continue low fiber diet Attached is information to the GI office for continued follow up Patient 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 Cancino for further cardiology workup Monitor blood pressures Take caution while standing, rising, or moving Change positions slowly taking a break between each position change If you standing feel dizzy sit back down and take a break Patient reported that he was having trouble caring for self due to back pain Worked with therapy who recommended placement for continued therapy however patient refused placement As discussed care coordination has reached out to home health services for continued therapy in the home If you do not receive a call from home health call the numbers below for follow Care Coordination: Home Health Referral for PT/OT sent to [facility] [phone] [facility] Encouraged to continue with yearly vaccinations Return to the emergency department if he developed sudden shortness of breath, chest pain, nausea, vomiting, upset stomach or intractable diarrhea Return to the emergency department if you develop fever greater than 100.5 Follow-up with the primary care physician within 1-2 weeks Thank you for [facility] for your healthcare needs Patient Instructions: A-fib (Atrial Fibrillation) (DC), Cirrhosis of the Liver (DC), Low Fiber Diet (DC) Patient Language: Belarusian Stand Alone Forms: General Discharge Information Follow-up/Referrals: Alexey Alvarenga MD [Physician, General Surgery] Moises Sanders MD [Physician, Gastroenterology] - Call for Appointment [facility],JAN [Primary Care Provider, Medical] - 1 Week Discharge Medications: Continued acetaminophen-codeine 300-30 mg tablet 1 tablet PO DAILY PRN (Reason: pain) metformin 500 mg tablet 1,000 mg PO BID pregabalin [Lyrica] 75 mg capsule 75 mg PO BID carvedilol 12.5 mg tablet 12.5 mg PO Q12H Rx Instructions: must administer with a meal/food aspirin 81 mg capsule 81 mg PO DAILY lansoprazole 15 mg capsule,delayed release(DR/EC) 15 mg PO DAILY acetaminophen [Acetaminophen Extra Strength] 500 mg tablet 1,000 mg PO Q6H PRN (Reason: pain) nitroglycerin 0.4 mg tablet, sublingual 0.4 mg sublingual Q5-15M Rx Instructions: do not exceed 3 doses per episode ferrous gluconate 324 mg (38 mg iron) Tablet 324 mg PO DAILY@0800 30 Days Qty: 30 0RF loratadine 10 mg Tablet 10 mg PO QAM 30 Days Qty: 30 0RF divalproex [Depakote] 500 mg tablet,delayed release (DR/EC) 500 mg PO .Q24 sumatriptan succinate [Imitrex] 50 mg tablet See Rx Instructions .ROUTE .COMPLEX Rx Instructions: take 1 tab at onset of headache; if no relief may repeat 1 tab after at least 2 hrs; max = 4 tabs/24 hr ferrous sulfate 324 mg (65 mg iron) tablet,delayed release (DR/EC) 324 mg PO DAILY Date of admission: 01/21/25 15:32 Primary Care Provider: [facility],JAN Admitting Provider: Jonathan Mohr Attending physician on admission: Jonathan Mohr Condition: Stable Hospitalist MIPS Heart Failure (Exclusion) Patient has history of Heart Transplant or Left Ventricular Assistive Device?: No IF YES, STOP HERE Heart Failure (Qualifier) Patient has current or prior documentation of LVEF less than or equal to 40%, or mod/servere depressed LVSF?: No IF NO, STOP HERE
== END 2025-01-23 17:20 | disposition home health service (06) | DRG 392 ==
LOC: ANHED 16:38 → ANH3MEDSUR 20:03
PROVIDERS: Internal Medicine; Admitting Provider Family Medicine; Emergency Provider Emergency Medicine; Visit Provider Student in an Organized Health Care Education/Training Program
DX: A08.4 Viral intestinal infection, unspecified (principal); K76.6 Portal hypertension; D61.818 Other pancytopenia; K74.69 Other cirrhosis of liver; K29.50 Unspecified chronic gastritis without bleeding; M54.89 Other dorsalgia; E86.0 Dehydration; E87.6 Hypokalemia; E11.9 Type 2 diabetes mellitus without complications; F60.3 Borderline personality disorder; F43.10 Post-traumatic stress disorder, unspecified; E66.9 Obesity, unspecified; I48.91 Unspecified atrial fibrillation; K81.9 Cholecystitis, unspecified; Z66 Do not resuscitate; I10 Essential (primary) hypertension; R62.7 Adult failure to thrive; Z74.1 Need for assistance with personal care; F10.91 Alcohol use, unspecified, in remission; Z87.19 Personal history of other diseases of the digestive system; Z89.012 Acquired absence of left thumb; Z87.891 Personal history of nicotine dependence; Z68.35 Body mass index [BMI] 35.0-35.9, adult; Z79.891 Long term (current) use of opiate analgesic; Z79.82 Long term (current) use of aspirin; T14.90XS Injury, unspecified, sequela; Y24.9XXS Unspecified firearm discharge, undetermined intent, sequela
CPT/HCPCS: 36415; 74177; 76705; 78227; 80048; 80053; 81001; 82140; 82948; 83690; 85025; 85027; 85055; 85610; 85730; 93005; 96374; 96375; 97110; 97116; 97161; 97165; 97530; 99212; 99285; A9270; A9537; G0378; G0463; J1815; J2470; J2765; J2805; J3010; J7030; J7040; Q9967

== ENCOUNTER 2025-01-25 11:24 | Emergency (ER) | payer MEDICARE, OTHER, SELFPAY ==
[2025-01-25 11:21] VITALS: BP 113/84; PULSE 71; RESP 17; TEMP 36.9; O2SAT 100
[2025-01-25 11:32] VITALS: BP 113/84; PULSE 71; RESP 17; TEMP 36.9; O2SAT 100
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
[2025-01-25 12:17] LABS: Influenza A QL RT-PCR Negative (Negative); Influenza B QL RT-PCR Negative (Negative); RSV RNA, RT-PCR Negative (Negative); SARS-CoV-2 RNA PCR Negative (Negative)
[2025-01-25] MEDS: ONDANSETRON INJ 4 MG/2 ML VIAL IV PUSH (12:33)
[2025-01-25 12:37] VITALS: BP 136/65; PULSE 72; RESP 15; O2SAT 100
[2025-01-25 12:55] LABS: Hematocrit 37.6 % (42.0-52.0); Hemoglobin 12.0 g/dL (14.0-18.0); Immature Granulocyte Percent A 0.3 % (0-0.5); Immature Platelet Fraction Pct 9.3 % (0.9-11.2); Lymphocytes Absolute Auto 0.87 K/mm3 (0.9-3.2); Mean Corpuscular HGB Conc 31.9 g/dl (32-36); Mean Corpuscular Hemoglobin 31.7 pg (26-34); Mean Corpuscular Volume 99.2 fl (80-100); Nucleated Red Blood Cells Absolute Auto 0.000 K/mm3 (0.0-0.012); Nucleated Red Blood Cells Perc 0.0 % (0.0-0.2); Platelet Count Result 70 k/mm3 (150-375); Red Blood Count 3.79 M/mm3 (4.6-6.20); White Blood Count 3.2 K/mm3 (4.5-10.0)
[2025-01-25 13:06] LABS: Alanine Aminotransferase 18 U/L (6-50); Albumin Level 3.0 g/dL (3.5-5.1); Alkaline Phosphatase 92 U/L (38-126); Anion Gap 4 mmol/L (4-12); Aspartate Amino Transferase 22 U/L (17-59); Bilirubin,Total 0.7 mg/dL (0.2-1.3); Blood Urea Nitrogen 8 mg/dL (9-20); Calcium 8.1 mg/dL (8.4-10.2); Carbon Dioxide 27 mmol/L (22-30); Chloride 103 mmol/L (98-107); Estimated CRCL calculation 128 ml/min; Estimated Glomerular Filt Rate > 60; Glucose 207 mg/dL (65-110); Lipase 43 U/L (23-300); Magnesium 1.6 mg/dL (1.6-2.3); Potassium 3.8 mmol/L (3.4-5.0); Sodium 134 mmol/L (137-145); Total Protein 5.8 g/dL (6.3-8.2)
[2025-01-25 14:12] VITALS: BP 153/68; PULSE 72; RESP 14; O2SAT 100
== END 2025-01-25 14:14 | disposition home or self-care (01) ==
PROVIDERS: Emergency Medicine; Emergency Provider Student in an Organized Health Care Education/Training Program
DX: K52.9 Noninfective gastroenteritis and colitis, unspecified (principal); Z20.822 Contact with and (suspected) exposure to COVID-19; I10 Essential (primary) hypertension; E11.9 Type 2 diabetes mellitus without complications; F43.10 Post-traumatic stress disorder, unspecified; Z79.84 Long term (current) use of oral hypoglycemic drugs; Z79.82 Long term (current) use of aspirin; Z66 Do not resuscitate
CPT/HCPCS: 36415; 80053; 83690; 83735; 85025; 85055; 87637; 96374; 99284; J2405

== ENCOUNTER 2025-03-23 14:52 | Emergency (ER) | payer OTHER, MEDICARE, SELFPAY ==
--- OUTSIDE RECORDS SUMMARY | 2024-04-08 04:00 | XMS_ITS | Encounter Summary ---
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 COMPLETED Initial TC Care Coordination Intervention Plan No mental health team information available Information gathered from: [place] report, intake Initial Intervention Plan TC Pictures Editor will serve as a point of contact and source of information throughout the episode of care. was provided with information on how to contact their MHTC and [facility] Team as well as the [place]'s Crisis line. Additional potential interventions are as follows. Medication management related interventions Inform about importance of medication adherence (with support of [facility] psychiatric provider or pharmacist): Ongoing Review of how to contact clinic/pharmacy for how to order refill of medication: Ongoing vitals and reminders Time spent: 15 minutes /es/ RACHAEL HANLEY RN Registered Nurse Signed: 04/08/2024 10:13 RACHAEL HANLEY [facility]
--- OUTSIDE RECORDS SUMMARY | 2024-05-20 09:00 | XMS_ITS | Encounter Summary ---
Author Name [facility] Address [address] [place] [address] Care Team Providers Care Independent Insurance Adjuster Name Role Phone GRACE QUINN Primary Care [...] Medina's Name Patient's Relationship to Policy Medina [facility] MEDICARE SUPPLEMEN SHEILA PLANF Mar 25, 2016 [facility] [id number] CHRISTOPHER JOSE MARIA PATIENT [facility] MEDICARE SUPPLEMEN SHEILA PLANF Oct 23, 2010 PLANF [id number] CHRISTOPHER JOSE MARIA PATIENT [facility] MEDICARE SUPPLEMEN SHEILA PLANF Mar 25, 2016 PLANF [id number] [phone] JOSE MARIA WHITEP MED [facility] MEDICARE SUPPLEMEN SHEILA PLANF Oct 23, 2010 PLANF [id number] [phone] JOSE MARIA WHITEP [facility] (WNR) MEDICARE ADVANTAGE [facility] (WNR) July 24, 2023 [id number] JOSE MARIA WHITE PATIENT MEDICARE (WNR) MEDICARE (M) PART A July 24, 2003 PART A [id number] JOSE MARIA WHITE PATIENT MEDICARE (WNR) MEDICARE (M) PART B July 24, 2003 PART B [id number] [phone] JOSE MARIA WHITE PATIENT MEDICARE (WNR) MEDICARE (M) PART A July 24, 2003 PART A [id number] JOSE MARIA WHITE PATIENT [facility] (WNR) MEDICARE ADVANTAGE [facility] (WNR) Mar 25, 2024 [id number] JOSE MARIA WHITE [facility] (WNR) MEDICARE ADVANTAGE [facility] (WNR) Mar 25, 2024 [id number] JOSE MARIA WHITE PATIENT Selected Encounter This section includes the information on record at [place] for the Encounter. Date/Time Encounter Type Encounter Description Reason Pro vider Source May 20, 2024 03:00 PM Outpatient Encounter PSYCHOGERIATRIC - INDIVIDUAL RACHAEL THOMAS Encounter Template Text not used by [place] Plan of Treatment: Future Appointments (+ 6 months) and Future Tests (+/- 45 days) The Plan of Treatment section includes future care activities for the patient from all [place] treatmentfacilities. This section includes future appointments and future orders which are active, pending or scheduled. Future Appointments This section includes appointments that were scheduled to occur 6 months from the date of the Encounter, up to a maximum of 20 appointments. The data comes from all [place] treatment facilities. Appointment Date/Time Appointment Type Appointme nt Facility Name Jul 09, 2024 01:30 PM AMBULATORY - PSYCHIATRY [facility] August 07, 2024 01:00 PM AMBULATORY - NONE [facility] August 07, 2024 02:00 PM AMBULATORY - MEDICINE [facility] August 07, 2024 03:00 PM AMBULATORY - REHAB MEDICIN E [facility] August 19, 2024 02:30 PM AMBULATORY - PSYCHIATRY [facility] August 21, 2024 12:15 PM AMBULATORY - NONE [facility] Sep 18, 2024 02:00 PM AMBULATORY - NONE [facility] Oct 06, 2024 03:30 PM AMBULATORY - NONE [facility] Nov 06, 2024 02:00 PM AMBULATORY - NONE [facility] Active, Pending, and Scheduled Orders This section includes a listing of several types of active, pending, and scheduled orders, including clinic medications orders, diagnostic test orders, procedure orders and consult orders; where the start date of the order is 45 days before the date of the Encounter or 45 days after the date of theEncounter. The data comes from all [facility]. Test Date/Time Test Type Test Details Facility Name Apr 08, 2024 12:00 AM Laboratory - Chemi stry Order AMYLASE GREEN LI/HEP BLD/PLAS PLASMA [facility] Apr 08, 2024 12:00 AM Laboratory - Chemi stry Order VITAMIN D, 25-HYDROXY GOLD/RED SST SERUM [facility] Apr 08, 2024 12:00 AM Laboratory - Chemi stry Order RAPID PLASMA REAGIN (RPR) GOLD/RED SST SERUM SP [facility] Apr 08, 2024 12:00 AM Laboratory - Chemi stry Order HEPATIC FUNTION PANEL (STL) GREEN LI/HEP BLD/PLAS PLASMA [facility] Social History: Smoking Status (Most current) and Tobacco Use (All prior to encounter date) This section includes the most current, and the historical, smoking and tobacco- related health factors from the [place] facility where the Encounter took place. Current Smoking Status This section includes the most current smoking, or tobacco-related health factor, from the [place] facility where the Encounter took place. Date/Time Current Smoking Status Comment Facil ity Jun 05, 2023 01:00 PM VA-TOBACCO FORMER USER [facility] Tobacco Use History This section includes a history of the smoking, or tobacco-related health factors, that were collected on or before the date of the Encounter. The data comes from the [place] facility where the Encounter took place. Date/Time Smoking Status/Tobacco Use Comment Antoine garcia Jun 05, 2023 01:00 PM VA-TOBACCO QUIT 15 YRS OR MORE [facility] Encounter Notes: All associated encounter notes This section contains the clinical notes associated to the Encounter. Date/Time Encounter Note(s) Provider Source May 20, 2024 04:55 PM MENTAL HEALTH ADMINISTRATIVE NOTE: LOCAL TITLE: [facility] NO SHOW [facility] STANDARD TITLE: MENTAL HEALTH ADMINISTRATIVE NOTE DATE OF NOTE: MAY 20, 2024@16:55 ENTRY DATE: MAY 20, 2024@16:55:40 AUTHOR: RACHAEL THOMAS COSIGNER: URGENCY: STATUS: COMPLETED Jarratt did not attend scheduled appointment. DOES NOT have a high risk flag for suicide assigned to his/her chart. Attempted to contact Jarratt by phone due to failure to appear for scheduled appointment. Spoke to Jarratt by phone concerning No Show. - Reminded of importance of keeping scheduled appointments. denied emergent concerns at this time. referred to [facility] for scheduling. daughter has flu. Rescheduled for 06/24/2024 @ 1500 f2f. /cas/ RACHAEL THOMAS RN Registered Nurse Signed: 05/20/2024 17:06 Receipt Acknowledged By: 05/20/2024 17:15 /cas/ ELIA BISHOP MD Staff Physician, Psychiatry 05/22/2024 15:12 /cas/ KAYLA GO SUPERVISORY STOCK DIGGER 05/21/2024 10:14 /es/ MAXIMILIANO BAJWA ADVANCED STOCK DIGGER RACHAEL THOMAS [facility] May 19, 2024 12:28 PM MENTAL HEALTH TELE PHONE ENCOUNTER NOTE: LOCAL TITLE: [facility] TELEPHONE [facility] STANDARD TITLE: MENTAL HEALTH TELEPHONE ENCOUNTER NOTE DATE OF NOTE: MAY 19, 2024@12:28 ENTRY DATE: MAY 19, 2024@12:30:16 AUTHOR: RACHAEL THOMAS EXP COSIGNER: URGENCY: STATUS: COMPLETED called vet. and voice mailbox is not setup so couldn't leave a message about upcoming appt. with Dr. Mccarty on 05/20/2024 @ 1500. /es/ RACHAEL THOMAS RN Registered Nurse Signed: 05/19/2024 12:31 RACHAEL THOMAS [facility]
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
--- OUTSIDE RECORDS SUMMARY | 2024-08-07 08:00 | XMS_ITS | Encounter Summary ---
Author Name [facility] [place] Organization [facility] [place] Address [address] [place] [address] Care Team Providers Care Marina Dry Dock Manager Name Role Phone GRACE QUINN Primary Care [...] Medina's Name Patient's Relationship to Policy Medina [facility] MEDICARE SUPPLEMEN SHEILA PLANF Mar 25, 2016 PLAN [id number] [phone] [facility] MEDICARE SUPPLEMEN SHEILA PLANF Oct 23, 2010 PLANF [id number] CHRISTOPHER JOSE MARIA PATIENT [facility] MEDICARE SUPPLEMEN SHEILA PLANF Mar 25, 2016 PLANF [id number] JOSE MARIA WHITE AARP MED SUPP MEDICARE SUPPLEMEN SHEILA PLANF Oct 23, 2010 PLANF [id number] [phone] JOSE MARIA WHITE PATIENT [facility]ARP [facility] (WNR) MEDICARE ADVANTAGE [facility] (WNR) July 24, 2023 [id number] JOSE MARIA WHITE PATIENT MEDICARE (WNR) MEDICARE (M) PART A July 24, 2003 PART A [id number] [phone] JOSE MARIA WHITE PATIENT MEDICARE (WNR) MEDICARE (M) PART B July 24, 2003 PART B [id number] JOSE MARIA WHITE PATIENT MEDICARE (WNR) MEDICARE (M) PART A July 24, 2003 PART A [id number] [phone] JOSE MARIA WHITE PATIENT [facility] (WNR) MEDICARE ADVANTAGE MCR (WNR) Mar 25, 2024 [id number] [id number] JOSE MARIA WHITE PATIENT [facility] (WNR) MEDICARE ADVANTAGE MCR (WNR) Mar 25, 2024 [id number] JOSE MARIA WHITE PATIENT Selected Encounter This section includes the information on record at [place] for the Encounter. Date/Time Encounter Type Encounter Description Reason Provider Source August 07, 2024 02:00 PM OFF/OP EST JULY X REQ PHY/QHP GERIPACT ICD-10-CM R44.8 Oth symptoms and signs w general sensations and perceptions REMEDIOS MENDOZA A [facility] Encounter Template Text not used by [place] Assessments - Encounter Diagnoses This section includes the primary and secondary diagnoses documented for the Encounter. Date/Time Primary/Secondary Diagnosis Diagnosis Name Provider Source August 22, 2024 02:42 PM PRIMARY Oth symptoms and signs w general sensations and perceptions GRIFFIN [facility]YN[facility] Plan of Treatment: Future Appointments (+ 6 months) and Future Tests (+/- 45 days) The Plan of Treatment section includes future care activities for the patient from all [place] treatmentfacilities. This section includes future appointments and future orders which are active, pending or scheduled. Future Appointments This section includes appointments that were scheduled to occur 6 months from the date of the Encounter, up to a maximum of 20 appointments. The data comes from all [facility]. Appointment Date/Time Appointment Type Appointme nt Facility Name August 19, 2024 02:30 PM AMBULATORY - PSYCHIATRY [facility] August 21, 2024 12:15 PM AMBULATORY - NONE [facility] Sep 18, 2024 02:00 PM AMBULATORY - NONE [facility] Oct 06, 2024 03:30 PM AMBULATORY - NONE [facility] Nov 06, 2024 02:00 PM AMBULATORY - NONE [facility] Dec 07, 2024 03:00 PM AMBULATORY - NONE [facility] Dec 18, 2024 02:00 PM AMBULATORY - NONE [facility] Jan 01, 2025 10:30 AM AMBULATORY - MEDICINE [facility] Jan 08, 2025 12:45 PM AMBULATORY - MEDICINE [facility] Jan 11, 2025 09:30 AM AMBULATORY - NONE [facility] Jan 18, 2025 11:00 AM AMBULATORY - MEDICINE [facility] Jan 21, 2025 11:00 AM AMBULATORY - MEDICINE [facility] Jan 24, 2025 02:00 PM AMBULATORY - NONE [facility] Jan 26, 2025 08:00 AM AMBULATORY - NONE [facility] Jan 26, 2025 02:00 PM AMBULATORY - REHAB MEDICIN [facility] Active, Pending, and Scheduled Orders This section includes a listing of several types of active, pending, and scheduled orders, including clinic medications orders, diagnostic test orders, procedure orders and consult orders; where the start date of the order is 45 days before the date of the Encounter or 45 days after the date of theEncounter. The data comes from all [facility]. Test Date/Time Test Type Test Details Facility Name August 07, 2024 12:00 AM Laboratory - Chemi stry Order MICRAL/CREAT PROFILE (STL) URINE [facility] Lab Results: +/- 30 days of the [...] Type Comment August 19, 2024 03:41 PM [facility] VALPROIC ACID (STL-MA) PLASMA Specimen Type: PLASMA No comment entered. Ordering Provider: HUBERT BISHOP Report Released Date/Time: August 19, 2024 03:18 PM Reporting Lab: [facility] [id number] Performing Lab: [facility] [phone] VALPROIC ACID (STL-MA) 28.4 ug/mL L 50.0-1 00.0 August 07, 2024 02:00 PM [facility] HGA1C BLOOD Specimen Type: BLOOD No comment entered. Ordering Provider: MARIA ELENA ARRIETA Report Released Date/Time: August 07, 2024 01:00 PM Reporting Lab: [facility] [id number] Performing Lab: [facility] [phone] HGA1C 6.9 H 4.0-6.0 August 07, 2024 02:00 PM [facility] VITAMIN D, 25-HYDROXY SERUM Specimen Type: SE RUM No comment entered. Ordering Provider: MARIA ELENA ARRIETA Report Released Date/Time: August 07, 2024 01:00 PM Reporting Lab: [facility] [phone] Performing Lab: [facility] [id number] VITAMIN D, 25-HYDROXY 36.1 ng/mL 30-96 August 07, 2024 02:00 PM [facility] TSH W/ REFLEX FT4 (STL) PLASMA Specimen Type: PLASMA No comment entered. Ordering Provider: MARIA ELENA ARRIETA Report Released Date/Time: August 07, 2024 01:00 PM Reporting Lab: [facility] [phone] Performing Lab: [facility] [id number] TSH 1.097 u[IU]/mL 0.470-5.000 August 07, 2024 02:00 PM [facility] B12 SERUM Specimen Type: SERUM No comment entered. Ordering Provider: MARIA ELENA ARRIETA Report Released Date/Time: August 07, 2024 01:00 PM Reporting Lab: [facility] [phone] Performing Lab: [facility] [phone] B12 582 pg/mL 213-816 August 07, 2024 02:00 PM [facility] COMPREHENSIVE METABOLIC PANEL PLASMA Specimen Type: PLASMA Comment: No hemolysis noted. Ordering Provider: MARIA ELENA ARRIETA Report Released Date/Time: August 07, 2024 01:00 PM Reporting Lab: [facility] [phone] Performing Lab: [facility] [phone] CREATININE 0.90 mg/dL 0.70-1.30 UREA NITROGEN 13.3 [...] 86.88 >60 August 07, 2024 02:00 PM [facility] LIPID PANEL (STL) PLASMA Specimen Type: PLASM A Comment: No hemolysis noted. Ordering Provider: MARIA ELENA ARRIETA Report Released Date/Time: August 07, 2024 01:00 PM Reporting Lab: [facility] [phone] Performing Lab: [facility] [phone] CHOLESTEROL 164 mg/dL 0-200 TRIGLYCERIDE 99 mg/dL [...] August 07, 2024 01:00 PM 75 119/75 [facility] August 07, 2024 01:00 PM 98.9 79 151/80 95 [facility] Social History: Smoking Status (Most current) and Tobacco Use (All prior to encounter date) This section includes the most current, and the historical, smoking and tobacco- related health factors from the [place] facility where the Encounter took place. Current Smoking Status This section includes the most current smoking, or tobacco-related health factor, from the [place] facility where the Encounter took place. Date/Time Current Smoking Status Comment Vanessa eaton Jun 05, 2023 01:00 PM VA-TOBACCO FORMER USER [facility] Tobacco Use History This section includes a history of the smoking, or tobacco-related health factors, that were collected on or before the date of the Encounter. The data comes from the [place] facility where the Encounter took place. Date/Time Smoking Status/Tobacco Use Comment F acgideon Jun 05, 2023 01:00 PM [place]-TOBACCO QUIT 15 YRS OR MORE [facility] Encounter Notes: All associated encounter notes This section contains the clinical notes associated to the Encounter. Date/Time Encounter Note(s) Provider Source August 07, 2024 01:30 PM NURSING NOTE: LOCAL TITLE: V15 PACT FACE TO FACE NOTE STL STANDARD TITLE: NURSING NOTE DATE OF NOTE: AUGUST 07, 2024@13:30 ENTRY DATE: AUGUST 07, 2024@14:17:48 AUTHOR: ROB MENDOZA COSIGNER: URGENCY: STATUS: COMPLETED RN SBAR for Unscheduled Patients: S: Situation (brief statement of chief complaint): Etta presented to his visit with CP- Dr. Arrieta. She asked this RNCM to triage pt for left leg ulcer. B: Background (precipitating/alleviating factors, etc.): Etta has hx of DM and Sarcoidosis and chronic leg ulcers. A: Assessment (using nursing process but focusing on presenting complaint): VSS. No complaints of pain. Pt has multiple scabbed areas on both lower leg regions and nickel-size wounds at base of anterior leg. Serosanguinous drainage noted on pt's socks, slight redness around wound at base of left leg, tender to touch. Right leg wound has same drainage, slightly scabbed over. Area around right leg wound is pink, wound appears to healing. No tenderness noted while examining. R: Recommendation (what is RNCM going to do; intervention, warm handoff to Provider, FINISHING LAB TECHNICIAN, etc.): RNCM asked for Dr. Cancino to evaluate . Team members that were notified of status: Dr. Cancino. Provided verbal and written wound care instructions and supplies to and his daughter. Both verbalized understanding. /cas/ ROB MENDOZA BSN RN REGISTERED NURSE Signed: 08/10/2024 12:[address] [facility]
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
--- OUTSIDE RECORDS SUMMARY | 2024-08-21 07:27 | XMS_ITS ---
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 Phone GRACE QUINN Primary Care [...] Medina's Name Patient's Relationship to Policy Medina [facility] MEDICARE SUPPLEMEN SHEILA PLANF Mar 25, 2016 [facility] [id number] ISMAELTESS JOSE MARIA PATIENT [facility] MEDICARE SUPPLEMEN SHEILA PLANF Oct 23, 2010 PLANF [id number] ISMAELTESS JOSE MARIA PATIENT [facility] MEDICARE SUPPLEMEN SHEILA PLANF Mar 25, 2016 PLANF [id number] JOSE MARIA WHITE AARP MED SUPP MEDICARE SUPPLEMEN TAL PLANF Oct 23, 2010 PLANF [id number] [phone] JOSE MARIA WHITE AARP [facility] (WNR) MEDICARE ADVANTAGE [facility] (WNR) July 24, 2023 [id number] JOSE MARIA WHITE PATIENT MEDICARE (WNR) MEDICARE (M) PART B July 24, 2003 PART B [id number] JOSE MARIA WHITE PATIENT MEDICARE (WNR) MEDICARE (M) PART A July 24, 2003 PART A [id number] [phone] JOSE MARIA WHITE PATIENT MEDICARE (WNR) MEDICARE (M) PART A July 24, 2003 PART A [id number] JOSE MARIA WHITE PATIENT [facility] (WNR) MEDICARE ADVANTAGE MCR (WNR) Mar 25, 2024 [id number] JOSE MARIA WHITE PATIENT [facility] (WNR) MEDICARE ADVANTAGE MCR (WNR) Mar 25, 2024 H2001 [id number] JOSE MARIA WHITE PATIENT Selected Encounter This section includes the information on record at [place] for the Encounter. Date/Time Encounter Type Encounter Description Reason Provider Source August 21, 2024 01:27 PM Outpatient Encounter ADMIN PAT ACTIVTIES (MASNONCT) MIGUEL BOND Encounter Template Text not used by [place] Plan of Treatment: Future Appointments (+ 6 months) and Future Tests (+/- 45 days) The Plan of Treatment section includes future care activities for the patient from all [place] treatmentfacilities. This section includes future appointments and future orders which are active, pending or scheduled. Future Appointments This section includes appointments that were scheduled to occur 6 months from the date of the Encounter, up to a maximum of 20 appointments. The data comes from all [place] treatment facilities. Appointment Date/Time Appointment Type Appointme nt Facility Name Sep 18, 2024 02:00 PM AMBULATORY - NONE [facility] Oct 06, 2024 03:30 PM AMBULATORY - NONE [facility] Nov 06, 2024 02:00 PM AMBULATORY - NONE [facility] Dec 07, 2024 03:00 PM AMBULATORY - NONE [facility] Dec 18, 2024 02:00 PM AMBULATORY - NONE [facility] Jan 01, 2025 10:30 AM AMBULATORY - MEDICINE [facility] Jan 08, 2025 12:45 PM AMBULATORY - MEDICINE [facility] Jan 11, 2025 09:30 AM AMBULATORY - NONE [facility] Jan 18, 2025 11:00 AM AMBULATORY - MEDICINE [facility] Jan 21, 2025 11:00 AM AMBULATORY - MEDICINE [facility] Jan 24, 2025 02:00 PM AMBULATORY - NONE [facility] Jan 26, 2025 08:00 AM AMBULATORY - NONE [facility] Jan 26, 2025 02:00 PM AMBULATORY - REHAB MEDICIN E [facility] Feb 09, 2025 11:00 AM AMBULATORY - MEDICINE [facility] Feb 09, 2025 11:18 AM AMBULATORY - MEDICINE [facility] Feb 12, 2025 01:30 PM AMBULATORY - NONE [facility] Active, Pending, and Scheduled Orders This section includes a listing of several types of active, pending, and scheduled orders, including clinic medications orders, diagnostic test orders, procedure orders and consult orders; where the start date of the order is 45 days before the date of the Encounter or 45 days after the date of theEncounter. The data comes from all [place] treatment facilities. Test Date/Time Test Type Test Details Facility Name August 07, 2024 12:00 AM Laboratory - Chemi stry Order MICRAL/CREAT PROFILE (STL) URINE SP [facility] Lab Results: +/- 30 days of the [...] Type Comment August 19, 2024 03:41 PM [facility] VALPROIC ACID (STL-MA) PLASMA Specimen Type: PLASMA No comment entered. Ordering Provider: HUBERT BISHOP Report Released Date/Time: August 19, 2024 03:18 PM Reporting Lab: [facility] [id number] Performing Lab: [facility] [id number] VALPROIC ACID (STL-MA) 28.4 ug/mL L 50.0-1 00.0 August 07, 2024 02:00 PM [facility] HGA1C BLOOD Specimen Type: BLOOD No comment entered. Ordering Provider: MARIA ELENA ARRIETA Report Released Date/Time: August 07, 2024 01:00 PM Reporting Lab: [facility] [address] Performing Lab: [facility] [address] HGA1C 6.9 H 4.0-6.0 August 07, 2024 02:00 PM [facility] VITAMIN D, 25-HYDROXY SERUM Specimen Type: SE RUM No comment entered. Ordering Provider: MARIA ELENA ARRIETA Report Released Date/Time: August 07, 2024 01:00 PM Reporting Lab: [facility] [address] Performing Lab: [facility] [address] VITAMIN D, 25-HYDROXY 36.1 ng/mL 30-96 August 07, 2024 02:00 PM [facility] TSH W/ REFLEX FT4 (STL) PLASMA Specimen Type: PLASMA No comment entered. Ordering Provider: MARIA ELENA ARRIETA Report Released Date/Time: August 07, 2024 01:00 PM Reporting Lab: [facility] [address] Performing Lab: [facility] [address] TSH 1.097 u[IU]/mL 0.470-5.000 August 07, 2024 02:00 PM [facility] B12 SERUM Specimen Type: SERUM No comment entered. Ordering Provider: MARIA ELENA ARRIETA Report Released Date/Time: August 07, 2024 01:00 PM Reporting Lab: [facility] [address] Performing Lab: [facility] [address] B12 582 pg/mL 213-816 August 07, 2024 02:00 PM [facility] COMPREHENSIVE METABOLIC PANEL PLASMA Specimen Type: PLASMA Comment: No hemolysis noted. Ordering Provider: MARIA ELENA ARRIETA Report Released Date/Time: August 07, 2024 01:00 PM Reporting Lab: [facility] [address] Performing Lab: [facility] [address] CREATININE 0.90 mg/dL 0.70-1.30 UREA NITROGEN 13.3 [...] 86.88 >60 August 07, 2024 02:00 PM [facility] LIPID PANEL (STL) PLASMA Specimen Type: PLASM A Comment: No hemolysis noted. Ordering Provider: MARIA ELENA ARRIETA Report Released Date/Time: August 07, 2024 01:00 PM Reporting Lab: [facility] [address] Performing Lab: [facility] [address] CHOLESTEROL 164 mg/dL 0-200 TRIGLYCERIDE 99 mg/dL 0-150 CALCULATED LDL 93 mg/dL See Interp HDL(New) 51 mg/dL > 40 Social History: Smoking Status (Most current) and Tobacco Use (All prior to encounter date) This section includes the most current, and the historical, smoking and tobacco- related health factors from the [place] facility where the Encounter took place. Current Smoking Status This section includes the most current smoking, or tobacco-related health factor, from the [place] facility where the Encounter took place. Date/Time Current Smoking Status Comment Facil ity Jun 05, 2023 01:00 PM VA-TOBACCO FORMER USER [facility] Tobacco Use History This section includes a history of the smoking, or tobacco-related health factors, that were collected on or before the date of the Encounter. The data comes from the [place] facility where the Encounter took place. Date/Time Smoking Status/Tobacco Use Comment F acility Jun 05, 2023 01:00 PM [place]-TOBACCO QUIT 15 YRS OR MORE [facility] Encounter Notes: All associated encounter notes This section contains the clinical notes associated to the Encounter. Date/Time Encounter Note(s) Provider Source August 21, 2024 01:27 PM TELEHEALTH CONSULT : LOCAL TITLE: V15 VVC DEVICE CONSULT RESULT STANDARD TITLE: TELEHEALTH CONSULT DATE OF NOTE: AUGUST 21, 2024@13:27 ENTRY DATE: AUGUST 21, 2024@13:27:52 AUTHOR: MIGUEL BOND EXP COSIGNER: URGENCY: STATUS: COMPLETED Test call has been completed. [place] may now be scheduled for VVC appointment. 

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
--- OUTSIDE RECORDS SUMMARY | 2025-01-07 23:39 | XMS_ITS | Encounter Summary ---
Author Name [facility] Organization [facility] ([place]) Address [address] [place] [address] Care Team Providers Care Communications Attendant Name Role Phone GRACE QUINN Primary Care [...] [place] Unavailable Unavailable TATIANNA MONROE Unavailable Unavailable JASMYN OATESSEA Unavailable Unavail able HERO SHAFFER Unavailable Unavailable [...] [place]'s Name Patient's Relationship to Policy [place] [facility] [employer] Mar 25, 2016 PLAN [id number] [phone] ISMAELTESS JOSE MARIA PATIENT [facility]IC[facility] [employer] PLANF Oct 23, 2010 PLANF [id number] JOSE MARIA WHITE PATIENT [facility] MEDICARE SU[employer]LEMEN [employer]A PLANF Mar 25, 2016 PLANF [id number] [phone] JOSE MARIA WHITEP MED SUPP MEDICARE SUPPLEMEN SHEILA PLANF Oct 23, 2010 PLANF [id number] [phone] JOSE MARIA WHITEP [facility] (WNR) MEDICARE ADVANTAGE [facility] (WNR) July 24, 2023 [id number] JOSE MARIA WHITE PATIENT MEDICARE (WNR) MEDICARE (M) PART A July 24, 2003 PART A [id number] JOSE MARIA WHITE PATIENT MEDICARE (WNR) MEDICARE (M) PART B July 24, 2003 PART B [id number] JOSE MARIA WHITE PATIENT MEDICARE (WNR) MEDICARE (M) PART A July 24, 2003 PART A [id number] JOSE MARIA WHITE PATIENT [facility] (WNR) MEDICARE ADVANTAGE [facility] (WNR) Mar 25, 2024 [id number] JOSE MARIA WHITE [facility] (WNR) MEDICARE ADVANTAGE [facility] (WNR) Mar 25, 2024 [id number] JOSE MARIA WHITE PATIENT Selected Encounter This section includes the information on record at [place] for the Encounter. Date/Time Encounter Type Encounter Description Reason Provider Source Jan 08, 2025 05:39 AM Outpatient Encounter GENERAL INTERNAL MEDICINE CARLOS ESQUIVEL Encounter Template Text not used by [place] Plan of Treatment: Future Appointments (+ 6 months) and Future Tests (+/- 45 days) The Plan of Treatment section includes future care activities for the patient from all [place] treatmentfacilities. This section includes future appointments and future orders which are active, pending or scheduled. Future Appointments This section includes appointments that were scheduled to occur 6 months from the date of the Encounter, up to a maximum of 20 appointments. The data comes from all [place] treatment facilities. Appointment Date/Time Appointment Type Appointme nt Facility Name Jan 11, 2025 09:30 AM AMBULATORY - NONE [facility] Jan 18, 2025 11:00 AM AMBULATORY - MEDICINE [facility] Jan 21, 2025 11:00 AM AMBULATORY - MEDICINE [facility] Jan 24, 2025 02:00 PM AMBULATORY - NONE [facility] Jan 26, 2025 08:00 AM AMBULATORY - NONE [facility] Jan 26, 2025 02:00 PM AMBULATORY - REHAB MEDICIN E [facility] Feb 09, 2025 11:00 AM AMBULATORY - MEDICINE [facility] Feb 09, 2025 11:18 AM AMBULATORY - MEDICINE [facility] Feb 12, 2025 01:30 PM AMBULATORY - NONE [facility] Mar 15, 2025 01:30 PM AMBULATORY - NONE [facility] Mar 31, 2025 10:00 AM AMBULATORY - MEDICINE [facility] Mar 31, 2025 12:00 PM AMBULATORY - SURGERY [facility] Mar 31, 2025 02:30 PM AMBULATORY - MEDICINE [facility] Apr 09, 2025 11:00 AM AMBULATORY - MEDICINE [facility] May 03, 2025 03:00 PM AMBULATORY - NONE [facility] Active, Pending, and Scheduled Orders This section includes a listing of several types of active, pending, and scheduled orders, including clinic medications orders, diagnostic test orders, procedure orders and consult orders; where the start date of the order is 45 days before the date of the Encounter or 45 days after the date of theEncounter. The data comes from all [facility]. Test Date/Time Test Type Test Details Facility Name Dec 07, 2024 12:00 AM Laboratory - Chemi stry Order CBC BLOOD SP [facility] Dec 07, 2024 12:00 AM Laboratory - Chemi stry Order MICRAL/CREAT PROFILE (STL) URINE SP [facility] Jan 09, 2025 05:26 PM Consult Order COMMUNITY CARE-GEC HOMEMAKER/HOME HEALTH AIDE STL Cons Color Maker Formulator's Choice [facility] Jan 15, 2025 12:00 AM Laboratory - Chemi stry Order CELIAC DISEASE PANEL (STL-MRN) GOLD/RED SST SERUM SP ONCE [facility] Jan 15, 2025 12:00 AM Laboratory - Chemi stry Order IRON/TIBC PROFILE GOLD/RED SST SERUM SP [facility] Jan 15, 2025 12:00 AM Laboratory - Chemi stry Order ANTI-NUCLEAR ANTIBODY (STL-PB) GOLD/RED SST SERUM SP [facility] Jan 15, 2025 12:00 AM Laboratory - Chemi stry Order ACTIN (SMOOTHMUSCLE) ANTIBODY IGG GOLD/RED SST SERUM SP [facility] Jan 15, 2025 12:00 AM Laboratory - Chemi stry Order IGG (STL) GOLD/RED SST SERUM SP [facility] Jan 15, 2025 12:00 AM Laboratory - Chemi stry Order ANTI-MITOCHONDRIAL AB (STL-PB) GOLD/RED SST SERUM SP [facility] Jan 15, 2025 12:00 AM Laboratory - Chemi stry Order HEP HB S Ag (AUSRIA) (STL) GOLD/RED SST SERUM SP [facility] Jan 15, 2025 12:00 AM Laboratory - Chemi stry Order HEP B CORE AB TOTAL. (STL) GOLD/RED SST SERUM SP [facility] Jan 15, 2025 12:00 AM Laboratory - Chemi stry Order HEPATITIS B SURFACE AB PNL GOLD/RED SST SERUM SP [facility] Jan 15, 2025 12:00 AM Laboratory - Chemi stry Order HEPATITIS A IGG AB (STL) GOLD/RED SST SERUM SP [facility] Jan 15, 2025 12:00 AM Laboratory - Chemi stry Order ALPHA-1 ANTITRYPSIN (STL-PB) GOLD/RED SST SERUM SP [facility] Jan 15, 2025 12:00 AM Laboratory - Chemi stry Order FERRITIN GOLD/RED SST SERUM SP [facility] Jan 15, 2025 12:00 AM Laboratory - Chemi stry Order HEPATIC FUNTION PANEL (STL) GREEN LI/HEP BLD/PLAS PLASMA SP [facility] Jan 15, 2025 12:00 AM Laboratory - Chemi stry Order HEP C Ab HCV Ab (STL) GOLD/RED SST SERUM SP [facility] Feb 09, 2025 12:18 PM Laboratory - Chemi stry Order URINALYSIS W/ CX REFLEX (STL-PB) URN - CLEAN CATCH URINE WC ONCE [facility] Social History: Smoking Status [...] Current Smoking Status Comment Facil ity Jun 10, 2024 11:21 AM VA-TOBACCO USE FOR HANK CIGARETTES [facility] Tobacco Use History This section includes a history of the smoking, or tobacco-related health factors, that were collected on or before the date of the Encounter. The data comes from the [place] facility where the Encounter took place. Date/Time Smoking Status/Tobacco Use Comment F acility Jun 10, 2024 11:21 AM VA-TOBACCO USE FOR HANK CIGARETTES [facility] Encounter Notes: All associated encounter notes This section contains the clinical notes associated to the Encounter. Date/Time Encounter Note(s) Provider Source Jan 20, 2025 03:51 PM ADDENDUM: LOCAL TITLE: Addendum STANDARD TITLE: ADDENDUM DATE OF NOTE: JAN 20, 2025@15:51:10 ENTRY DATE: JAN 20, 2025@15:51:10 AUTHOR: CARLOS ESQUIVEL EXP COSIGNER: URGENCY: STATUS: COMPLETED Please advise patient to go the [facility] lab for blood tests as we discussed. He expressed a [facility] to [facility] [place] for these. Tests have to be completed before placing a GI consult. /cas/ CARLOS ESQUIVEL M.D. STAFF PHYSICIAN ECRS Signed: 01/20/2025 15:59 Receipt Acknowledged By: 01/26/2025 10:34 /cas/ ROB MENDOZA BSN RN REGISTERED NURSE --- Original Document --- 01/05/25 [facility] S[facility]F PRESENTING CARE COORD PLAN 657 STL: Emergency Notification Intake Date Presenting to the Facility: Dec Information Obtained Through: Notified from ECR worklist Notification ID: [id number] [facility] Referral #: [id number] Clinical Review [facility] Name: Hospital: [facility] Address: [address] City: [place] State: [place] Zip Code: [address] [facility] Facility Point of Contact: Name: Negrita Llamas Chief Complaint: nausea Primary Diagnosis: Disposition Unknown NO records available for this episode of care in JL or Epic. Faxed request for records to above hospital ########################## ########################## # Status: 1703 CLINICAL REVIEW [facility] PROVIDER/PATIENT WILL NEED TO CONTACT [facility] FOR STATUS OR QUESTIONS ########################## ########################## ## /cas/ RIDDHI WONG [facility] APPEALS REVIEWER VETERAN Signed: 01/08/2025 05:41 Receipt Acknowledged By: 01/09/2025 11:35 /es/ SUBHASH TERRAZAS BSN RN REGISTERED NURSE 01/08/2025 07:40 /es/ ROB ZAPIENN RN REGISTERED NURSE 01/08/2025 08:02 /es/ CARLOS ESQUIVEL M.D. STAFF PHYSICIAN [facility] 01/09/2025 ADDENDUM STATUS: COMPLETED Discharge Disposition Date of discharge: Dec Disposition Discharge to home DC records sent securely to RNCM. Alerting PCP team to this note for continuity of care. Records r/t this episode of care sent for scanning, will be available within 24hrs. Discharge Summary Records:SHARED SECURELY WITH PACT RN AND SENT TO [facility] Hospital/discharge Summary (per discharge note): PRESENTED W/nausea, vomiting, and diarrhea. 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 EKG showed afib w/RVR, left axis deviation, right bundle branch block. 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 PT/OT recc DC home w/HH Important Medication Changes: Start - CIPROFLOXACIN HCL 0.3% drops 1 drop in each eye Q4H x 3days Ferrous gluconate 324 mg po daily Loratadine 10mg po daily Stop - DEPAKOTE Benadryl *Medication reconciliation needed* Post-Discharge Needs 1) [facility] -f[facility]u with pcp in 5-[address] the below recc consults per hosp DC if using [facility] insurance: -F/U WITH GI -F/U WITH CARDIOLOGY -needs HOME HEALTH ([facility] internal consults needed for ALL follow up care) /mary anne RUSS RN REGISTERED NURSE Signed: 01/09/2025 11:43 Receipt Acknowledged By: 01/11/2025 08:05 /mary anne RUSS RN REGISTERED NURSE 01/09/2025 17:13 /cas/ CARLOS ESQUIVEL M.D. STAFF PHYSICIAN ECRS 01/14/2025 ADDENDUM STATUS: COMPLETED CONTACT contacted on Dec to discuss RECC GI AND CARDIOLOGY F/U Action Needed? Yes PACT PLEASE PLACE RECC CARDIOLOGY AND GI CONSULT PER HOSP DC Alerting PCP team to this note for continuity of care. /mary anne RUSS RN REGISTERED NURSE Signed: 01/14/2025 10:42 Receipt Acknowledged By: 01/18/2025 08:28 /mary anne RUSS RN REGISTERED NURSE 01/15/2025 17:08 /es/ CARLOS ESQUIVEL M.D. STAFF PHYSICIAN ECRS 01/20/2025 ADDENDUM STATUS: COMPLETED PACT PLEASE PLACE RECC GI CONSULT PER HOSP DC; OR STATED WHETHER CONSULT IS STILL NEEDED Alerting PCP team to this note for continuity of care. /mary anne RUSS RN REGISTERED NURSE Signed: 01/20/2025 15:06 Receipt Acknowledged By: 01/22/2025 08:03 /cas/ ROB RUSS RN REGISTERED NURSE 01/20/2025 15:23 /es/ CARLOS ESQUIVEL M.D. STAFF PHYSICIAN ECRS 01/22/2025 ADDENDUM STATUS: COMPLETED Episode of Care Complete PER PCP Blood tests have to be completed before placing a GI consult. /mary anne RUSS RN REGISTERED NURSE Signed: 01/22/2025 14:29 CARLOS ESQUIVEL [facility] Jan 20, 2025 03:05 PM ADDENDUM: LOCAL TITLE: Addendum STANDARD TITLE: ADDENDUM DATE OF NOTE: JAN 20, 2025@15:05:12 ENTRY DATE: JAN 20, 2025@15:05:13 AUTHOR: SUBHASH TERRAZAS EXP COSIGNER: URGENCY: STATUS: COMPLETED PACT PLEASE PLACE RECC GI CONSULT PER HOSP DC; OR STATED WHETHER CONSULT IS STILL NEEDED Alerting PCP team to this note for continuity of care. /mary anne RUSS RN REGISTERED NURSE Signed: 01/20/2025 15:06 Receipt Acknowledged By: 01/22/2025 08:03 /mary anne RUSS RN REGISTERED NURSE 01/20/2025 15:23 /cas/ CARLOS ESQUIVEL M.D. STAFF PHYSICIAN ECRS --- Original Document --- 01/05/25 [facility] C[facility] COORD PLAN 657 STL: Emergency Notification Intake Date Presenting to the Facility: Dec Information Obtained Through: Notified from ECR worklist Notification ID: [id number] [facility] Referral #: 1703 Clinical Review [facility] Name: Hospital: [facility] Address: [address] City: [place] State: [place] Zip Code: [address] [facility] Facility Point of Contact: Name: Negrita Llamas Chief Complaint: nausea Primary Diagnosis: Disposition Unknown NO records available for this episode of care in [facility] or [facility]. Faxed request for records to above hospital ########################## ########################## # Status: 1703 CLINICAL REVIEW [facility] PROVIDER/PATIENT WILL NEED TO CONTACT [facility] FOR STATUS OR QUESTIONS ########################## ########################## ## /cas/ RIDDHI WONG [facility] APPEALS REVIEWER VETERAN Signed: 01/08/2025 05:41 Receipt Acknowledged By: 01/09/2025 11:35 /es/ SUBHASH ZAPIENN RN REGISTERED NURSE 01/08/2025 07:40 /es/ ROB ZAPIENN RN REGISTERED NURSE 01/08/2025 08:02 /es/ CARLOS ESQUIVEL M.D. STAFF PHYSICIAN ECRS 01/09/2025 ADDENDUM STATUS: COMPLETED Discharge Disposition Date of discharge: Dec Disposition Discharge to home [place] records sent securely to RNCM. Alerting PCP team to this note for continuity of care. Records r/t this episode of care sent for scanning, will be available within 24hrs. Discharge Summary Records:SHARED SECURELY WITH PACT RN AND SENT TO [facility] SCANN[facility] Hospital/discharge Summary (per discharge note): PRESENTED W/nausea, vomiting, and diarrhea. 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 EKG showed afib w/RVR, left axis deviation, right bundle branch block. 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 PT/OT recc DC home w/HH Important Medication Changes: Start - CIPROFLOXACIN HCL 0.3% drops 1 drop in each eye Q4H x 3days Ferrous gluconate 324 mg po daily Loratadine 10mg po daily Stop - DEPAKOTE Benadryl *Medication reconciliation needed* Post-Discharge Needs 1) [facility] -f/u with pcp in 5-[address] the below recc consults per hosp DC if using [facility] insurance: -F/U WITH GI -F/U WITH CARDIOLOGY -needs HOME HEALTH ([facility] or [facility] internal consults needed for ALL follow up care) /mary anne RUSS RN REGISTERED NURSE Signed: 01/09/2025 11:43 Receipt Acknowledged By: 01/11/2025 08:05 /mary anne RUSS RN REGISTERED NURSE 01/09/2025 17:13 /cas/ CARLOS ESQUIVEL M.D. STAFF PHYSICIAN ECRS 01/14/2025 ADDENDUM STATUS: COMPLETED CONTACT contacted on Dec to discuss RECC GI AND CARDIOLOGY F/U Action Needed? Yes PACT PLEASE PLACE RECC CARDIOLOGY AND GI CONSULT PER HOSP DC Alerting PCP team to this note for continuity of care. /mary anne RUSS RN REGISTERED NURSE Signed: 01/14/2025 10:42 Receipt Acknowledged By: 01/18/2025 08:28 /mary anne RUSS RN REGISTERED NURSE 01/15/2025 17:08 /mary anne ESQUIVEL M.D. STAFF PHYSICIAN ECRS 01/20/2025 ADDENDUM STATUS: COMPLETED Please advise [facility] as we discussed. He expressed a preference to go to [facility] in [place] for these. Tests have to be completed before placing a GI consult. /cas/ CARLOS ESQUIVEL M.D. STAFF PHYSICIAN ECRS Signed: 01/20/2025 15:59 Receipt Acknowledged By: * AWAITING SIGNATURE * SUBHASH TERRAZAS SHAMEKA N [facility] Jan 14, 2025 10:41 AM ADDENDUM: LOCAL TITLE: Addendum STANDARD TITLE: ADDENDUM DATE OF NOTE: JAN 14, 2025@10:41:32 ENTRY DATE: JAN 14, 2025@10:41:33 AUTHOR: SUBHASH TERRAZAS EXP COSIGNER: URGENCY: STATUS: COMPLETED CONTACT contacted on Dec to discuss RECC GI AND CARDIOLOGY F/U Action Needed? Yes PACT PLEASE PLACE RECC CARDIOLOGY AND GI CONSULT PER HOSP DC Alerting PCP team to this note for continuity of care. /mary anne ZAPIENN RN REGISTERED NURSE Signed: 01/14/2025 10:42 Receipt Acknowledged By: 01/18/2025 08:28 /es/ ROB RUSS RN REGISTERED NURSE 01/15/2025 17:08 /cas/ CARLOS ESQUIVEL M.D. STAFF PHYSICIAN ECRS --- Original Document --- 01/05/25 [facility] PRESENTING CARE COORD PLAN 657 STL: Emergency Notification Intake Date Presenting to the Facility: Dec Information Obtained Through: Notified from ECR worklist Notification ID: [id number] [facility] Referral #: 1703 Clinical Review [facility] Name: Hospital: [facility] Address: [address] City: [place] State: [place] Zip Code: [address] Community Facility Point of Contact: Name: Negrita Llamas Chief Complaint: nausea Primary Diagnosis: Disposition Unknown NO records available for this episode of care in [facility] or [facility]. Faxed request for records to above hospital ########################## ########################## # Status: 1703 CLINICAL REVIEW COMMUNITY PROVIDER/PATIENT WILL NEED TO CONTACT [facility] FOR STATUS OR QUESTIONS ########################## ########################## ## /cas/ RIDDHI WONG [facility] APPEALS REVIEWER VETERAN Signed: 01/08/2025 05:41 Receipt Acknowledged By: 01/09/2025 11:35 /es/ SUBHASH TERRAZAS BSN RN REGISTERED NURSE 01/08/2025 07:40 /es/ ROB MENDOZA BSN RN REGISTERED NURSE 01/08/2025 08:02 /es/ CARLOS ESQUIVEL M.D. STAFF PHYSICIAN ECRS 01/09/2025 ADDENDUM STATUS: COMPLETED Discharge Disposition Date of discharge: Dec Disposition Discharge to home DC records sent securely to RNCM. Alerting PCP team to this note for continuity of care. Records r/t this episode of care sent for scanning, will be available within 24hrs. Discharge Summary Records:SHARED SECURELY WITH PACT RN AND SENT TO [facility] SCANN[facility] Hospital/discharge Summary (per discharge note): PRESENTED W/nausea, vomiting, and diarrhea. 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 EKG showed afib w/RVR, left axis deviation, right bundle branch block. 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 PT/OT recc DC home w/HH Important Medication Changes: Start - CIPROFLOXACIN HCL 0.3% drops 1 drop in each eye Q4H x 3days Ferrous gluconate 324 mg po daily Loratadine 10mg po daily Stop - DEPAKOTE Benadryl *Medication reconciliation needed* Post-Discharge Needs 1) [facility] -f/u with pcp in 5-[address] the below recc consults per hosp DC if using [facility] insurance: -F/U WITH GI -F/U WITH CARDIOLOGY -needs HOME HEALTH ([facility] consults needed for ALL follow up care) /cas/ SUBHASH TERRAZAS BSN RN REGISTERED NURSE Signed: 01/09/2025 11:43 Receipt Acknowledged By: 01/11/2025 08:05 /cas/ ROB ZAPIENN RN REGISTERED NURSE 01/09/2025 17:13 /cas/ CARLOS ESQUIVEL M.D. STAFF PHYSICIAN ECRS SUBHASH TERRAZAS [facility] Jan 09, 2025 11:35 AM ADDENDUM: LOCAL TITLE: Addendum STANDARD TITLE: ADDENDUM DATE OF NOTE: JAN 09, 2025@11:35:07 ENTRY DATE: JAN 09, 2025@11:35:07 AUTHOR: SUBHASH TERRAZAS EXP COSIGNER: URGENCY: STATUS: COMPLETED Discharge Disposition Date of discharge: Dec Disposition Discharge to home DC records sent securely to RNCM. Alerting PCP team to this note for continuity of care. Records r/t this episode of care sent for scanning, will be available within 24hrs. Discharge Summary Records:SHARED SECURELY WITH PACT RN AND SENT TO [facility] FOR SCANN[facility] Hospital/discharge Summary (per discharge note): PRESENTED W/nausea, vomiting, and diarrhea. 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 EKG showed afib w/RVR, left axis deviation, right bundle branch block. 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 PT/OT recc DC home w/HH Important Medication Changes: Start - CIPROFLOXACIN HCL 0.3% drops 1 drop in each eye Q4H x 3days Ferrous gluconate 324 mg po daily Loratadine 10mg po daily Stop - DEPAKOTE Benadryl *Medication reconciliation needed* Post-Discharge Needs 1) [facility] -f/u with pcp in 5-[address] the below recc consults per hosp DC if using [facility] insurance: -F/U WITH GI -F/U WITH CARDIOLOGY -needs HOME HEALTH ([facility] consults needed for ALL follow up care) /cas/ SUBHASH RUSS RN REGISTERED NURSE Signed: 01/09/2025 11:43 Receipt Acknowledged By: 01/11/2025 08:05 /es/ ROB RUSS RN REGISTERED NURSE 01/09/2025 17:13 /cas/ CARLOS ESQUIVEL M.D. STAFF PHYSICIAN ECRS --- Original Document --- 01/05/25 [facility] S[facility]F PRESENTING CARE COORD PLAN 657 STL: Emergency Notification Intake Date Presenting to the Facility: Dec Information Obtained Through: Notified from ECR worklist Notification ID: [id number] [facility] Referral #: 1703 [facility] Name[facility] Hospital: [facility] Address: [address] City: [place] State: [place] Zip Code: [address] Community Facility Point of Contact: Name: Negrita Llamas Chief Complaint: nausea Primary Diagnosis: Disposition Unknown NO records available for this episode of care in [facility] or [facility]. Faxed request for records to above hospital ########################## ########################## # Status: 1703 CLINICAL REVIEW COMMUNITY PROVIDER/PATIENT WILL NEED TO CONTACT [facility] FOR STATUS OR QUESTIONS ########################## ########################## ## /mary anne WONG [facility] APPEALS REVIEWER VETERAN Signed: 01/08/2025 05:41 Receipt Acknowledged By: 01/09/2025 11:35 /cas/ SUBHASH TERRAZAS BSN RN REGISTERED NURSE 01/08/2025 07:40 /es/ ROB MENDOZA BSN RN REGISTERED NURSE 01/08/2025 08:02 /es/ CARLOS ESQUIVEL M.D. STAFF PHYSICIAN SUBHASH NORIEGA [facility] Jan 05, 2025 05:39 AM NONVA NOTE: LOCAL TITLE: [facility] SELF PRESENTING CARE COORD PLAN STANDARD TITLE: NONVA NOTE DATE OF NOTE: JAN 05, 2025@05:39 ENTRY DATE: JAN 08, 2025@05:39:39 AUTHOR: RIDDHI WONG EXP COSIGNER: URGENCY: STATUS: COMPLETED [facility] SELF PRESENTING CARE COORD PLAN 6[address] ST[address] Has ADDENDA Emergency Notification Intake Date Presenting to the Facility: Dec Information Obtained Through: Notified from ECR worklist Notification ID: [id number] [facility] Referral #: 1703 Clinical Review [facility] Name: Hospital: [facility] Address: [address] City: [place] State: [place] Zip Code: [address] Community Facility Point of Contact: Name: Negrita Llamas Chief Complaint: nausea Primary Diagnosis: Disposition Unknown NO records available for this episode of care in [facility] or [facility]. Faxed request for records to above hospital ########################## ########################## # Status: 1703 CLINICAL REVIEW COMMUNITY PROVIDER/PATIENT WILL NEED TO CONTACT [facility] FOR STATUS OR QUESTIONS ########################## ########################## ## /cas/ RIDDHI WONG [facility] APPEALS REVIEWER VETERAN Signed: 01/08/2025 05:41 Receipt Acknowledged By: 01/09/2025 11:35 /es/ SUBHASH TERRAZAS BSN RN REGISTERED NURSE 01/08/2025 07:40 /es/ ROB MENDOZA BSN RN REGISTERED NURSE 01/08/2025 08:02 /es/ CARLOS ESQUIVEL M.D. STAFF PHYSICIAN ECRS 01/09/2025 ADDENDUM STATUS: COMPLETED Discharge Disposition Date of discharge: Dec Disposition Discharge to home DC records sent securely to RNCM. Alerting PCP team to this note for continuity of care. Records r/t this episode of care sent for scanning, will be available within 24hrs. Discharge Summary Records:SHARED SECURELY WITH PACT RN AND SENT TO [facility]ANN[facility] Hospital/discharge Summary (per discharge note): PRESENTED W/nausea, vomiting, and diarrhea. 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 EKG showed afib w/RVR, left axis deviation, right bundle branch block. Gi suspected [facility], recc OP F/U. PT/OT recc DC home w/HH Important Medication Changes: Start - CIPROFLOXACIN HCL 0.3% drops 1 drop in each eye Q4H x 3days Ferrous gluconate 324 mg po daily Loratadine 10mg po daily Stop - DEPAKOTE Benadryl *Medication reconciliation needed* Post-Discharge Needs 1) [facility] -f/u with pcp in 5-[address] the below recc consults per hosp DC if using [facility] insurance: -F/U WITH GI -F/U WITH CARDIOLOGY -needs HOME HEALTH ([facility] cons[facility] needed for ALL follow up care) /mary anne RUSS RN REGISTERED NURSE Signed: 01/09/2025 11:43 Receipt Acknowledged By: 01/11/2025 08:05 /mary anne RUSS RN REGISTERED NURSE 01/09/2025 17:13 /mary anne ESQUIVEL M.D. STAFF PHYSICIAN [facility] 01/14/2025 ADDENDUM STATUS: COMPLETED CONTACT contacted on Dec to discuss [facility] GI AND CARDIOLOGY F/U Action Needed? Yes PACT PLEASE PLACE [facility] CARDIOLOGY AND GI CONSULT PER HOSP DC Alerting PCP team to this note for continuity of care. /mary anne RUSS RN REGISTERED NURSE Signed: 01/14/2025 10:42 Receipt Acknowledged By: 01/18/2025 08:28 /mary anne RUSS RN REGISTERED NURSE 01/15/2025 17:08 /cas/ CARLOS ESQUIVEL M.D. STAFF PHYSICIAN [facility] 01/20/2025 ADDENDUM STATUS: COMPLETED PACT PLEASE PLACE RECC GI CONSULT PER HOSP DC; OR STATED WHETHER CONSULT IS STILL NEEDED Alerting PCP team to this note for continuity of care. /mary anne RUSS RN REGISTERED NURSE Signed: 01/20/2025 15:06 Receipt Acknowledged By: 01/22/2025 08:03 /mary anne RUSS RN REGISTERED NURSE 01/20/2025 15:23 /mary anne ESQUIVEL M.D. STAFF PHYSICIAN [facility] 01/20/2025 ADDENDUM STATUS: COMPLETED Please advise patient to go the [facility] tests as we discussed. He expressed a preference to go to [facility] in [place] for these. Tests have to be completed before placing a GI consult. /mary anne ESQUIVEL M.D. STAFF PHYSICIAN [facility] Signed: 01/20/2025 15:59 Receipt Acknowledged By: * AWAITING SIGNATURE * ROB MENDOZA 01/22/2025 ADDENDUM STATUS: COMPLETED Episode of Care Complete PER PCP Blood tests have to be completed before placing a GI consult. /cas/ SUBHASH TERRAZAS BSN RN REGISTERED NURSE Signed: 01/22/2025 14:29 [facility]DHI WONG [facility]
--- OUTSIDE RECORDS SUMMARY | 2025-01-18 05:00 | XMS_ITS | Encounter Summary ---
Author Name [facility] Organization [facility] ([place]) Address [address] [place] [address] Care Team Providers Care Dynamometer Repairer Name Role Phone GRACE QUINN Primary Care [...] Medina's Name Patient's Relationship to Policy Medina [facility] MEDICARE SUPPLEMEN SHEILA PLANF Mar 25, 2016 [facility] [id number] ISMAELTESS JOSE MARIA PATIENT [facility] MEDICARE SUPPLEMEN SHEILA PLANF Oct 23, 2010 PLANF [id number] ISMAELTESS JOSE MARIA PATIENT [facility] MEDICARE SUPPLEMEN SHEILA PLANF Mar 25, 2016 PLANF [id number] [phone] JOSE MARIA WHITE AARP MED SUPP MEDICARE SUPPLEMEN TAL PLANF Oct 23, 2010 PLANF [id number] [phone] JOSE MARIA WHITE AARP [facility] (WNR) MEDICARE ADVANTAGE [facility] (WNR) July 24, 2023 [id number] JOSE MARIA WHITE PATIENT MEDICARE (WNR) MEDICARE (M) PART B July 24, 2003 PART B [id number] JOSE MARIA WHITE PATIENT MEDICARE (WNR) MEDICARE (M) PART A July 24, 2003 PART A [id number] JOSE AMRIA WHITE PATIENT MEDICARE (WNR) MEDICARE (M) PART A July 24, 2003 PART A [id number] JOSE MARIA WHITE PATIENT [facility] (WNR) MEDICARE ADVANTAGE MCR (WNR) Mar 25, 2024 [id number] [id number] [phone] JOSE MARIA WHITE PATIENT [facility] (WNR) MEDICARE ADVANTAGE MCR (WNR) Mar 25, 2024 [id number] JOSE MARIA WHITE PATIENT Selected Encounter This section includes the information on record at [place] for the Encounter. Date/Time Encounter Type Encounter Description Reason Pro vider Source Jan 18, 2025 11:00 AM Outpatient Encounter ADMIN PAT ACTIVTIES (MASNONCT) IHE Encounter Template Text not used by [place] Plan of Treatment: Future Appointments (+ 6 months) and Future Tests (+/- 45 days) The Plan of Treatment section includes future care activities for the patient from all [place] treatmentfacilities. This section includes future appointments and future orders which are active, pending or scheduled. Future Appointments This section includes appointments that were scheduled to occur 6 months from the date of the Encounter, up to a maximum of 20 appointments. The data comes from all [place] treatment facilities. Appointment Date/Time Appointment Type Appointme nt Facility Name Jan 21, 2025 11:00 AM AMBULATORY - MEDICINE [facility] Jan 24, 2025 02:00 PM AMBULATORY - NONE [facility] Jan 26, 2025 08:00 AM AMBULATORY - NONE [facility] Jan 26, 2025 02:00 PM AMBULATORY - REHAB MEDICIN E [facility] Feb 09, 2025 11:00 AM AMBULATORY - MEDICINE [facility] Feb 09, 2025 11:18 AM AMBULATORY - MEDICINE [facility] Feb 12, 2025 01:30 PM AMBULATORY - NONE [facility] Mar 15, 2025 01:30 PM AMBULATORY - NONE [facility] Mar 31, 2025 10:00 AM AMBULATORY - MEDICINE [facility] Mar 31, 2025 12:00 PM AMBULATORY - SURGERY [facility] Mar 31, 2025 02:30 PM AMBULATORY - MEDICINE [facility] Apr 09, 2025 11:00 AM AMBULATORY - MEDICINE [facility] May 03, 2025 03:00 PM AMBULATORY - NONE [facility] Active, Pending, and Scheduled Orders This section includes a listing of several types of active, pending, and scheduled orders, including clinic medications orders, diagnostic test orders, procedure orders and consult orders; where the start date of the order is 45 days before the date of the Encounter or 45 days after the date of theEncounter. The data comes from all [facility] facilities. Test Date/Time Test Type Test Details Facility Name Dec 07, 2024 12:00 AM Laboratory - Chemistry Order CBC BLOOD SP [facility] Dec 07, 2024 12:00 AM Laboratory - Chemistry Order MICRAL/CREAT PROFILE (STL) URINE SP [facility] Jan 09, 2025 05:26 PM Consult Order COMMUNITY CARE-GEC HOMEMAKER/HOME HEALTH AIDE STL Cons Benefits Consulting Analyst's Choice [facility] Jan 15, 2025 12:00 AM Laboratory - Chemistry Order CELIAC DISEASE PANEL (STL-MRN) GOLD/RED SST SERUM SP ONCE [facility] Jan 15, 2025 12:00 AM Laboratory - Chemistry Order ANTI-NUCLEAR ANTIBODY (STL-PB) GOLD/RED SST SERUM SP [facility] Jan 15, 2025 12:00 AM Laboratory - Chemistry Order IRON/TIBC PROFILE GOLD/RED SST SERUM SP [facility] Jan 15, 2025 12:00 AM Laboratory - Chemistry Order ANTI-MITOCHONDRIAL AB (STL-PB) GOLD/RED SST SERUM SP [facility] Jan 15, 2025 12:00 AM Laboratory - Chemistry Order ACTIN (SMOOTHMUSCLE) ANTIBODY IGG GOLD/RED SST SERUM SP [facility] Jan 15, 2025 12:00 AM Laboratory - Chemistry Order HEP HB S Ag (AUSRIA) (STL) GOLD/RED SST SERUM SP [facility] Jan 15, 2025 12:00 AM Laboratory - Chemistry Order HEPATITIS B SURFACE AB PNL GOLD/RED SST SERUM SP [facility] Jan 15, 2025 12:00 AM Laboratory - Chemistry Order IGG (STL) GOLD/RED SST SERUM SP [facility] Jan 15, 2025 12:00 AM Laboratory - Chemistry Order HEPATITIS A IGG AB (STL) GOLD/RED SST SERUM SP [facility] Jan 15, 2025 12:00 AM Laboratory - Chemistry Order ALPHA-1 ANTITRYPSIN (STL-PB) GOLD/RED SST SERUM SP [facility] Jan 15, 2025 12:00 AM Laboratory - Chemistry Order HEP B CORE AB TOTAL. (STL) GOLD/RED SST SERUM SP [facility] Jan 15, 2025 12:00 AM Laboratory - Chemistry Order FERRITIN GOLD/RED SST SERUM SP [facility] Jan 15, 2025 12:00 AM Laboratory - Chemistry Order HEPATIC FUNTION PANEL (STL) GREEN LI/HEP BLD/PLAS PLASMA SP [facility] Jan 15, 2025 12:00 AM Laboratory - Chemistry Order HEP C Ab HCV Ab (STL) GOLD/RED SST SERUM SP [facility] Feb 09, 2025 12:18 PM Laboratory - Chemistry Order URINALYSIS W/ CX REFLEX (STL-PB) URN - CLEAN CATCH URINE WC ONCE [facility] Mar 01, 2025 12:00 AM Laboratory - Microbiology Order C&S URINE URINE HOLT WC ONCE [facility] Mar 01, 2025 12:00 AM Laboratory - Chemistry Order OCCULT BLOOD FIT X1 SCREEN STOOL FECES SP [facility] Mar 01, 2025 12:00 AM Laboratory - Chemistry Order ANTITHROMBIN III ACTIVITY BLUE,LIGHT(SODIUM CITRATE) PLASMA SP [facility] Mar 01, 2025 09:36 AM Consult Order EYE CLINIC OUTPT JESSICA Cons Benefits Consulting Analyst's [facility] Mar 01, 2025 09:36 AM Consult Order VASCULAR LAB OUTPT STL Cons Benefits Consulting Analyst's [facility] Mar 01, 2025 09:36 AM Consult Order CARDIOLOGY OUTPT J[facility] Results: +/- 30 days of the [...] Unit Interpretation Reference Range Specimen Type Comment Feb 10, 2025 12:51 PM [facility] GLUCOSE,BLOOD-poct (STL) BLOOD Specimen Type: BLOOD Comment: Test Performed by: [id number] Meter #: [id number] Ordering Provider: [email or web address] Report Released Date/Time: Feb 10, 2025 12:53 PM Reporting Lab: [place] [address] [facility] [address] Performing Lab: [place] [address] [facility] [address] GLUCOSE,BLOOD-poct (STL) 199 mg/dL H 72-99 Feb 10, 2025 05:13 AM [facility] GLUCOSE,BLOOD-poct (L) BLOOD Specimen Type: BLOOD Comment: Test Performed by: [id number] Meter #: [id number] Ordering Provider: [email or web address] Report Released Date/Time: Feb 10, 2025 05:37 AM Reporting Lab: [place] [address] [facility] [address] Performing Lab: [place] [address] [facility] [address] GLUCOSE,BLOOD-poct (STL) 95 mg/dL 72-99 Feb 09, 2025 11:20 PM [facility] APTT PLASMA Specimen Type: PLASM A Comment: ~HEP BOLUS - CALL RESULTS Ordering Provider: JESSE BURGOS Report Released Date/Time: Feb 09, 2025 04:35 PM Reporting Lab: [address] [address] Performing Lab: [place] [address] [facility] [address] APTT 29.9 s 26.7-39.9 Feb 09, 2025 08:35 PM [facility] GLUCOSE,BLOOD-poct (STL) BLOOD Specimen Type: BLOOD Comment: Test Performed by: [id number] Meter #: [id number] Ordering Provider: ANN BEASLEY Report Released Date/Time: Feb 09, 2025 08:41 PM Reporting Lab: [place] [address] [facility] [address] Performing Lab: [address] [address] GLUCOSE,BLOOD-poct (STL) 159 mg/dL H 72-Feb 09, 2025 05:22 PM [facility] MRSA SURVL NARES DNA NARES Specimen Type: HOOD ES Comment: Qualitative real-time PCR test for the rapid detection of methicillin-resistant Staphylococcus aureus (MRSA) DNA from nasal swabs. A negative result does not preclude infection with the agent(s) tested and should not be used as the sole basis for treatment or other patient management decisions. A positive test does not necessarily indicate the presence of viable organisms, following bacterial culture to recover the organism for further characterization and susceptibility testing. All results must be combined with clinical observations, patient history, and epidemiological information for final interpretation. Ordering Provider: JESSE BURGOS Report Released Date/Time: Feb 09, 2025 04:31 PM Reporting Lab: [place] [address] [facility] [address] Performing Lab: [place] [address] [facility] [address] MRSA SURVL NARES DNA Negative Negative Feb 09, 2025 05:00 PM [facility] APTT PLASMA Specimen Type: PLASM A Comment: ~HEP BOLUS-CALL RESULTS Ordering Provider: JESSE BURGOS Report Released Date/Time: Feb 09, 2025 04:35 PM Reporting Lab: [place] [address] [facility] [address] Performing Lab: [place] [address] [facility] [address] APTT 28.0 s 26.7-39.9 Feb 09, 2025 04:59 PM [facility] GLUCOSE,BLOOD-poct (STL) BLOOD Specimen Type: BLOOD Comment: Test Performed by: [id number] Meter #: [id number] Ordering Provider: ANN BEASLEY Report Released Date/Time: Feb 09, 2025 05:02 PM Reporting Lab: [place] [address] [address] [facility] [address] Performing Lab: [place] [address] [facility] [address] GLUCOSE,BLOOD-poct (STL) 162 mg/dL H 72-99 Feb 09, 2025 01:55 PM [facility] LACTIC ACID (STL-PB) PLASMA Specimen Type: TAMARA SMA No comment entered. Ordering Provider: CHINO LEONG I Report Released Date/Time: Feb 09, 2025 01:44 PM Reporting Lab: [place] [address] [facility] [address] Performing Lab: [address] [address] LACTIC ACID (STL-PB) 2.9 mmol/L H 0.5-2.0 Feb 09, 2025 11:52 AM [facility] BLOOD GAS PANEL ABG (STL) VENOUS BLOOD Specimen Type : VENOUS BLOOD Comment: Test Performed by: [id number] Meter #: [id number] Ordering Provider: ANNIE ARGUETA Report Released Date/Time: Feb 09, 2025 11:53 AM Reporting Lab: [facility] [address] [facility] [address] Performing Lab: [facility] [address] [facility] [address] GEM PH 7.40 7.31-7.41 GEM PCO2 36 mm[Hg] L 41-51 GEM PO2 55 mm[Hg] H 25-48 GEM SODIUM 139 mmol/L 136-145 GEM POTASSIUM 4.3 mmol/L 3.5-5.0 GEM CHLORIDE 107 mmol/L 98-107 GEM IONIZED CA 1.12 mmol/L 1.09-1.30 GEM HCT 38 38-48 GEM THB 12.3 g/dL L 13.1-16.8 GEM 02HB 85.8 H 60.0-85.0 GEM COHB 1.9 0.5-2.0 GEM METHB 0.0 0.0-1.9 GEM GLUCOSE 161 mg/dL H 72-99 GEM LACTATE 4.3 mmol/L H 0.9-2.0 GEM SO2 87.5 H 68.0-77.0 GEM CHCO3 22.3 mmol/L 20.0-26.0 GEM BASE EXCESS -2.1 mmol/L GEM FIO2 21.0 GEM PT. TEMP 37.0 Feb 09, 2025 11:51 AM [facility] BRAIN NATRIURETIC PEPTIDE PLASMA Specimen Type : PLASMA No comment entered. Ordering Provider: CHINO LEONG I Report Released Date/Time: Feb 09, 2025 01:19 PM Reporting Lab: [facility] [address] [facility] [address] Performing Lab: [place] [address] [facility] [address] BRAIN NATRIURETIC PEPTIDE 341.6 pg/mL H 0- 100 Feb 09, 2025 11:31 AM [facility] TROPONIN I (STL) PLASMA Specimen Type: PLASM A Comment: No hemolysis noted. Ordering Provider: KESHIA HUYNH Report Released Date/Time: Feb 09, 2025 11:30 AM Reporting Lab: [place] [address] [place] [phone] Performing Lab: [facility] [address] [place] [phone] TROPONIN I (STL) 0.019 ng/mL 0-0.033 Feb 09, 2025 11:31 AM [facility] COMPREHENSIVE METABOLIC PANEL PLASMA Specimen Type: PLASMA Comment: No hemolysis noted. Ordering Provider: KESHIA HUYNH Report Released Date/Time: Feb 09, 2025 11:30 AM Reporting Lab: [address] [address] Performing Lab: [address] [address] CREATININE 0.96 mg/dL 0.7-1.3 UREA NITROGEN 16.8 mg/dL 9.0-25.0 GLUCOSE 166 mg/dL H 72-99 SODIUM 143 meq/L 136-145 POTASSIUM 4.2 meq/L 3.5-5 CHLORIDE 113 meq/L H 98-107 CARBON DIOXIDE 19 meq/L L 22-31 CALCIUM 8.4 mg/dL 8.4-10.4 PROTEIN 5.6 g/dL L 6-8.6 ALBUMIN 2.7 g/dL L 3.4-5 TOTAL BILIRUBIN 0.6 mg/dL 0.2-1.2 ALKALINE PHOSPHATASE 94 U/L 40-150 AST/SGOT 17 U/L 5-34 ALT/SGPT 13 U/L 8-40 EGFR (CKD-EPI 2020) 80.4 >60 Feb 09, 2025 11:31 AM [facility] CBC BLOOD Specimen Type: BLOOD No comment entered. Ordering Provider: KESHIA HUYNH Report Released Date/Time: Feb 09, 2025 11:30 AM Reporting Lab: [address] [address] Performing Lab: [address] [address] WBC 5.6 10*3/uL 3.6-11.2 RBC 3.71 10*6/uL L 4.10-5.70 HGB 11.8 g/dL L 13.1-16.8 HCT 37.1 L 38.2-48.4 MCV 100.0 fL 80.0-100.0 MCH 31.8 pg 27.0-34.0 MCHC 31.8 g/dL L 33.0-36.0 PLT 157 10*3/uL 150-400 MPV 12.8 fL H 7.5-11.2 RDW 15.2 H 11.8-15.1 LYMPHOCYTES, AUTO % 21 MONOCYTES, AUTO % 8 NEUTROPHILS, AUTO % 63 EOSINOPHILS, AUTO % 5 BASOPHILS, AUTO % 2 LYMPHOCYTES, ABSOLUTE 1.17 10*3/uL 0.77- 4.50 MONOCYTES, ABSOLUTE 0.46 10*3/uL 0.19-0. 80 NEUTROPHILS, ABSOLUTE 3.52 10*3/uL 2.10- 8.00 EOSINOPHILS, ABSOLUTE 0.28 10*3/uL 0.00- 0.60 BASOPHILS, ABSOLUTE 0.09 10*3/uL 0.00-0. 20 Feb 09, 2025 11:20 AM [facility] GLUCOSE,BLOOD-poct (STL) BLOOD Specimen Type: BLOOD Comment: Test Performed by: [id number] Meter #: [id number] Ordering Provider: ANNIE ARGUETA Report Released Date/Time: Feb 09, 2025 11:22 AM Reporting Lab: [address] [address] Performing Lab: [address] [address] GLUCOSE,BLOOD-poct (STL) 161 mg/dL H 72-99 Social History: Smoking Status (Most current) and Tobacco Use (All prior to encounter date) This section includes the most current, and the historical, smoking and tobacco- related health factors from the [facility] where the Encounter took place. Current Smoking Status This section includes the most current smoking, or tobacco-related health factor, from the [place] facility where the Encounter took place. Date/Time Current Smoking Status Comment Facil ity Jun 10, 2024 11:21 AM VA-TOBACCO NEVER U SED OTHER TYPE [facility] Tobacco Use History This section includes a history of the smoking, or tobacco-related health factors, that were collected on or before the date of the Encounter. The data comes from the [place] facility where the Encounter took place. Date/Time Smoking Status/Tobacco Use Comment F jose Jun 10, 2024 11:21 AM IN-TOBACCO USE FOR HANK CIGARETTES [facility] Radiology Reports: +/- 30 days of the encounter Radiology Reports For cases when an order for radiology services may have been completed prior to the date of the Encounter, the report list includes the Radiology Reports that were completed up to 30 days before dateof the Encounter. For cases when an order for radiology services may have been completed after the date of the Encounter, the report list also includes the Radiology Reports that were completed up to30 days after date of the Encounter. The data comes from all [place] treatment facilities. Date/Time Radiology Report Provider Source Feb 10, 2025 11:29 AM US EXTREMITY VEINS BILAT (DVT): JOSE MARIA WHITE [id number] -1945 M Exm Date: FEB 10, 2025@11:29 Req Phys: JESSE BURGOS Pat Loc: 6N S OE-JESSICA/02-10-2025@13:14 Img Loc: JESSICA-ULTRASOUND JESSICA Service: [id number] [address] [address] (Case [id number] COMPLETE) US EXTREMITY VEINS BILAT (DVT) (US Detailed) CPT:77310 Reason for Study: dx with PE Clinical History: Report Status: Verified Date Reported: FEB 10, 2025 Date Verified: FEB 10, 2025 Epic Prelude Analyst E-Sig:/ES/David Pastrana MD Report: CASE #: [id number] DATE:02/10/2025 12:51 PM CLINICAL HISTORY:dx with PE TECHNIQUE: US EXTREMITY VEINS BILAT (DVT) COMPARISON: None currently available. Findings: The deep venous system of bilateral was scanned to include the common femoral, great saphenous, and popliteal veins as well as the the tibialis posterior and peroneal veins when possible. There is an occlusive thrombus within the right profunda femoral vein partially extending into the common femoral vein at the bifurcation. The right femoral vein, popliteal vein, and posterior tibial vein appear to be patent. There was no demonstrable flow in the right peroneal vein, although thrombus was not clearly identified within the vein. The deep venous system of the left lower extremity left was compressible throughout their course. No thrombi were identified on grayscale imaging. Venous flow velocities demonstrate normal augmentation. Impression: 1. There is an occlusive thrombus within the right profunda femoral vein partially extending into the common femoral vein at the bifurcation. No flow was demonstrable in the right peroneal vein blood, but the remainder of the right lower extremity deep veins were patent. 2. No thrombus identified within the visualized left lower extremity deep veins. These findings were relayed to Dr. Burgos by Dr. Chastity Mantilla via telephone at 1255 on 02/10/2025 with read back verification. Dictated by Chastity Mantilla M.D. (Diagnostic Bed Machine Operator). I, David Pastrana, have reviewed the images and report and concur with these findings. Primary Interpreting Staff: David Pastrana MD, Radiologist (Epic Prelude Analyst) Primary Interpreting Resident: Chastity Mantilla MD, Resident Physician /DAVID WILCOX [facility] Feb 09, 2025 03:[address] PE CHEST W/3D: JOSE MARIA WHITE RODRIGUE [id number] -1945 M Exm Date: FEB 09, 2025@15:10 Req Phys: CHINO LEONG I Pat Loc: 6N S -JESSICA/02-09-2025@16:39 Im Loc: JESSICA-CT IMAGING Service: [address] [address] (Case [id number] COMPLETE) CT THORAX W/CONT (PE) (CT Detailed) CPT:48583 Contrast Media : unspecified contrast media Reason for Study: syncope, abormanl CXR Clinical History: Responsible Attending: Mariam Attending Contact Number: [phone] Resident Contact Number: syncope, abormanl CXR Allergies listed in CPRS chart: PENICILLIN, TETRACYCLINE, NEOSPORIN, CELEBREX, SIMVASTATIN Creatinine: CREATININE 0.96 mg/dL 02/09/2025 11:31 /eGFR: STL EGFR (within one year). CREATININE 0.96 mg/dL (02/09/25 11:31) Wt: 273.5 lb [124.06 kg] (09/10/2023 13:16) History of: Renal failure, chronic or acute renal disease: NO Report Status: Verified Date Reported: FEB 09, 2025 Date Verified: FEB 09, 2025 Epic Prelude Analyst E-Sig:/SUNSHINE/REA MARLEY Report: CASE #: [id number] DATE:02/09/2025 4:08 PM CLINICAL HISTORY:syncope, abormanl CXR COMPARISON: Chest radiograph from 02/09/2025. EXAM: CT chest with intravenous contrast. TECHNIQUE: Axial CT images were obtained through the chest with intravenous contrast. The radiation exposure as measured by the dose length product (DLP) is 280 mGy-cm. FINDINGS: PULMONARY ARTERIES: There is acute pulmonary embolus within the middle lobe branches of right pulmonary artery (series 10 image [id number]). HEART: Atherosclerotic calcifications of the coronary arteries, otherwise normal. MEDIASTINUM: No mediastinal, hilar, or axillary lymphadenopathy or mass. LUNGS: There is subsegmental atelectasis of left greater than right bilateral lung bases. No significant pulmonary nodules. No pleural effusion or pneumothorax. CHEST WALL: Intact. UPPER ABDOMEN: Small amount of ascites in the visualized upper abdomen. There is evidence of liver cirrhosis, abdominal varices, and enlarged spleen suggesting portal hypertension. OTHER: Atherosclerotic calcification of the aorta and its branch vessels. Degenerative changes of the spine. Impression: 1. Acute pulmonary embolus within the middle lobe branches of right pulmonary artery. 2. Portal hypertension and ascites. These findings were discussed with Dr. Leong by Dr. Jamal Chiu at 4:25 PM on 02/09/2025 with read-back and confirmation. Dictated by Jamal Chiu M.D. (Diagnostic Bed Machine Operator). IRea, have reviewed the images and report and concur with these findings. Primary Interpreting Staff: REA MARLEY, Staff Physician (Epic Prelude Analyst) Primary Interpreting Resident: JAMAL CHIU Resident Physician /REA HOPE [facility] Feb 09, 2025 01:[address] HEAD W/O CONT: JOSE MARIA WHITE [id number] -1945 M Exm Date: FEB 09, 2025@13:01 Req Phys: CHINO LEONG I Pat Loc: [facility]ESS[facility]-EMERGENCY DEPT 2ND SHIFT (R Img Loc: JESS[facility]-CT IMAGING JESSICA Service: Unknown [facility] [address] [place] [address] (Case [id number] COMPLETE) CT HEAD W/O CONT (CT Detailed) CPT:11258 Reason for Study: syncopal episode Clinical History: Responsible Attending: Mariam Attending Contact Number: [phone] Resident Contact Number: syncopal episode Allergies listed in CPRS chart: PENICILLIN, TETRACYCLINE, NEOSPORIN, CELEBREX, SIMVASTATIN Creatinine: CREATININE 0.90 mg/dL 08/07/2024 14:00 /eGFR: STL EGFR (within one year). CREATININE 0.90 mg/dL (08/07/24 14:00) Wt: 273.5 lb [124.06 kg] (09/10/2023 13:16) History of: Renal failure, chronic or acute renal disease: NO Report Status: Verified Date Reported: FEB 09, 2025 Date Verified: FEB 09, 2025 Epic Prelude Analyst E-Sig:/ES/REA MARLEY Report: CASE #: [id number] DATE:02/09/2025 1:35 PM CLINICAL HISTORY:syncopal episode TECHNIQUE: CT HEAD W/O CONT HISTORY: syncopal episode Estimated radiation exposure from this exam is a DLP measurement of 1002 mGycm. COMPARISON: No prior study is available for comparison. FINDINGS: No mass lesion. 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 Nonspecific hypoattenuation in the periventricular and subcortical deep white matter most likely related to small vessel ischemic change. Age-appropriate volume loss.] No extra-axial fluid collections. There is intracranial atherosclerosis. Calvarium intact. Visualized paranasal sinuses within normal limits. There is findings of right cataract extraction. Impression: No acute intracranial process. Dictated by Jamal Chiu M.D. (Diagnostic Bed Machine Operator). I, Rea Marley, have reviewed the images and report and concur with these findings. Primary Interpreting Staff: REA MARLEY, Staff Physician (Epic Prelude Analyst) Primary Interpreting Resident: JAMAL CHIU, Resident Physician /REA HOPE [facility] Feb 09, 2025 11:32 AM CHEST PORTABLE: JOSE MARIA WHITE [id number] -1945 M Exm Date: FEB 09, 2025@11:32 Req Phys: KESHIA HUYNH Valerie Loc: -EMERGENCY DEPT 2ND SHIFT (R Img Loc: -MAIN RADIOLOGY SUITE Service: Unknown [facility] [address] [place] [address] (Case [id number] COMPLETE) CHEST PORTABLE (RAD Detailed) CPT:54683 Proc Modifiers : Portable Reason for Study: hypotension Clinical History: Report Status: Verified Date Reported: FEB 09, 2025 Date Verified: FEB 09, 2025 Epic Prelude Analyst E-Sig:/ES/David Pastrana MD Report: CASE [id number]. AP portable view chest. COMPARISON: FINDINGS: Bilateral costophrenic angles are partial excluded from image. Lungs: Bilateral lower lung atelectasis. Otherwise lungs are clear of airspace opacity. Mediastinum/Chasidy: The aorta is atherosclerotic otherwise the cardiomediastinal silhouette and pulmonary vascularity appear normal for technique. Pleura: No pleural effusion or pneumothorax. Others: Degenerative chance of bony structures. Impression: Basilar atelectasis versus less likely pneumonia at the left lung base. Tiny nodules versus vessels in the periphery of the right lower lobe. No CHF. No focal consolidation. No pleural effusion. Dictated by Jamal Chiu M.D. (Diagnostic Bed Machine Operator). I, David Pastrana, have reviewed the images and report and concur with these findings. Primary Interpreting Staff: David Pastrana MD, Radiologist (Epic Prelude Analyst) Primary Interpreting Resident: Resident HAL Physician /DAVID [facility] Pathology Reports: +/- 30 days of the encounter Pathology Reports For cases when an order for pathology services may have been completed prior to the date of the Encounter, the report list includes the Pathology Reports that were completed up to 30 days before dateof the Encounter. For cases when an order for pathology services may have been completed after the date of the Encounter, the report list also includes the Pathology Reports that were completed up to30 days after date of the Encounter. The data comes from all [place] treatment facilities. Date/Time Pathology Report Provider Source Feb 09, 2025 12:20 PM LR MICROBIOLOGY RE PORT: Accession [UID]: [id number] [[id number]] Received: Feb 09, 2025@12:29 Collection sample: B D BLD. BOTTLE Collection date: Feb 09, 2025 12:20 Site/Specimen: BLOOD Provider: ANNIE ARGUETA T Test(s) ordered: BLOOD CULT (SET 1)............ completed: Feb 15, 2025 12:44 * BACTERIOLOGY FINAL REPORT => Feb 15, 2025 12:46 TECH CODE: [id number] Bacteriology Remark(s): 02/10/25 [facility] CULTURE IS NEGATIVE TO DATE, ALL POSITIVES ARE ROUTINELY CALLED. Culture shows NO GROWTH IN 6 DAYS. 02/15/25 CED =--=--=--=--=--=--=--=--=--=- -=--=--=--=--=--=--=--=--=--= --=--=--=--=--=--=-- Performing Laboratory: Bacteriology Report Performed By: [facility] CLIA# [id number] [address] [place] [address] Bact Report Remark Performed By: [facility] [address] CLIA# [id number] [address] [place] [address] Feb 09, 2025 12:15 PM LR MICROBIOLOGY RE PORT: Accession [UID]: [id number] [[id number]] Received: Feb 09, 2025@12:29 Collection sample: B D BLD. BOTTLE (SET 2)Collection date: Feb 09, 2025 12:15 Site/Specimen: BLOOD Provider: ANNIE ARGUETA T Test(s) ordered: BLOOD CULT (SET 2)............ completed: Feb 15, 2025 12:45 * BACTERIOLOGY FINAL REPORT => Feb 15, 2025 12:46 TECH CODE: [id number] Bacteriology Remark(s): 02/10/25 CMG CULTURE IS NEGATIVE TO DATE, ALL POSITIVES ARE ROUTINELY CALLED. Culture shows NO GROWTH IN 6 DAYS. 02/15/25 CED =--=--=--=--=--=--=--=--=--=- -=--=--=--=--=--=--=--=--=--= --=--=--=--=--=--=-- Performing Laboratory: Bacteriology Report Performed By: [facility]# [id number] [address] [id number] Bact Report Remark Performed By: [facility]# [id number] [address] [place] [phone] [facility]
--- OUTSIDE RECORDS SUMMARY | 2025-01-18 07:20 | XMS_ITS ---
Author Name [facility] Organization [facility] ([place]) Address [address] [place] [address] Care Team Providers Care Test Operator Name Role Phone GRACE QUINN Primary [...] Name Patient's Relationship to Policy [facility] MEDICARE SUPPLEMEN SHEILA PLANF Mar 25, 2016 [facility] [id number] [phone] [address] PAT[address] [facility] MEDICARE SUPPLEMEN SHEILA PLANF Oct 23, 2010 PLANF [id number] [phone] ISMAELTESS JOSE MARIA PATIENT [facility] MEDICARE SUPPLEMEN SHEILA PLANF Mar 25, 2016 PLANF [id number] JOSE MARIA MATTHEWS AARP MED SUPP MEDICARE SUPPLEMEN TAL PLANF Oct 23, 2010 PLANF [id number] [phone] JOSE MARIA MATTHEWS AARP [facility] (WNR) MEDICARE ADVANTAGE [facility] (WNR) July 24, 2023 [id number] JOSE MARIA MATTHEWS PATIENT MEDICARE (WNR) MEDICARE (M) PART A July 24, 2003 PART A [id number] [phone] JOSE MARIA MATTHEWS PATIENT MEDICARE (WNR) MEDICARE (M) PART B July 24, 2003 PART B [id number] JOSE MARIA MATTHEWS PATIENT MEDICARE (WNR) MEDICARE (M) PART A July 24, 2003 PART A [id number] JOSE MARIA MATTHEWS PATIENT [facility] (WNR) MEDICARE ADVANTAGE MCR (WNR) Mar 25, 2024 [id number] JOSE MARIA MATTHEWS PATIENT [facility] (WNR) MEDICARE ADVANTAGE MCR (WNR) Mar 25, 2024 [id number] JOSE MARIA MATTHEWS PATIENT Selected Encounter This section includes the information on record at [place] for the Encounter. Date/Time Encounter Type Encounter Description Reason Pro vider Source Jan 18, 2025 01:20 PM Outpatient Encounter ADMIN PAT ACTIVTIES (MASNONCT) IHE Encounter Template Text not used by [place] Plan of Treatment: Future Appointments (+ 6 months) and Future Tests (+/- 45 days) The Plan of Treatment section includes future care activities for the patient from all [place] treatmentfacilities. This section includes future appointments and future orders which are active, pending or scheduled. Future Appointments This section includes appointments that were scheduled to occur 6 months from the date of the Encounter, up to a maximum of 20 appointments. The data comes from all [place] treatment facilities. Appointment Date/Time Appointment Type Appointme nt Facility Name Jan 21, 2025 11:00 AM AMBULATORY - MEDICINE [facility] Jan 24, 2025 02:00 PM AMBULATORY - NONE [facility] Jan 26, 2025 08:00 AM AMBULATORY - NONE [facility] Jan 26, 2025 02:00 PM AMBULATORY - REHAB MEDICIN E [facility] Feb 09, 2025 11:00 AM AMBULATORY - MEDICINE [facility] Feb 09, 2025 11:18 AM AMBULATORY - MEDICINE [facility] Feb 12, 2025 01:30 PM AMBULATORY - NONE [facility] Mar 15, 2025 01:30 PM AMBULATORY - NONE [facility] Mar 31, 2025 10:00 AM AMBULATORY - MEDICINE [facility] Mar 31, 2025 12:00 PM AMBULATORY - SURGERY [facility] Mar 31, 2025 02:30 PM AMBULATORY - MEDICINE [facility] Apr 09, 2025 11:00 AM AMBULATORY - MEDICINE [facility] May 03, 2025 03:00 PM AMBULATORY - NONE [facility] Active, Pending, and Scheduled Orders This section includes a listing of several types of active, pending, and scheduled orders, including clinic medications orders, diagnostic test orders, procedure orders and consult orders; where the start date of the order is 45 days before the date of the Encounter or 45 days after the date of theEncounter. The data comes from all [facility] facilities. Test Date/Time Test Type Test Details Facility Name Dec 07, 2024 12:00 AM Laboratory - Chemistry Order CBC BLOOD SP [facility] Dec 07, 2024 12:00 AM Laboratory - Chemistry Order MICRAL/CREAT PROFILE (STL) URINE SP [facility] Jan 09, 2025 05:26 PM Consult Order COMMUNITY CARE-GEC HOMEMAKER/HOME HEALTH AIDE STL Cons Regeneration Operator's Choice [facility] Jan 15, 2025 12:00 AM Laboratory - Chemistry Order CELIAC DISEASE PANEL (STL-MRN) GOLD/RED SST SERUM SP ONCE [facility] Jan 15, 2025 12:00 AM Laboratory - Chemistry Order IRON/TIBC PROFILE GOLD[facility] Jan 15, 2025 12:00 AM Laboratory - Chemistry Order ANTI-NUCLEAR ANTIBODY (STL-PB) GOLD/RED SST SERUM SP [facility] Jan 15, 2025 12:00 AM Laboratory - Chemistry Order ANTI-MITOCHONDRIAL AB (STL-PB) GOLD/RED SST SERUM SP [facility] Jan 15, 2025 12:00 AM Laboratory - Chemistry Order ACTIN (SMOOTHMUSCLE) ANTIBODY IGG GOLD/RED SST SERUM SP [facility] Jan 15, 2025 12:00 AM Laboratory - Chemistry Order HEP HB S Ag (AUSRIA) (STL) GOLD/RED SST SERUM SP [facility] Jan 15, 2025 12:00 AM Laboratory - Chemistry Order IGG (STL) GOLD/RED SST SERUM SP [facility] Jan 15, 2025 12:00 AM Laboratory - Chemistry Order HEP B CORE AB TOTAL. (STL) GOLD/RED SST SERUM SP [facility] Jan 15, 2025 12:00 AM Laboratory - Chemistry Order HEPATITIS B SURFACE AB PNL GOLD/RED SST SERUM SP [facility] Jan 15, 2025 12:00 AM Laboratory - Chemistry Order HEPATITIS A IGG AB (STL) GOLD/RED SST SERUM SP [facility] Jan 15, 2025 12:00 AM Laboratory - Chemistry Order HEPATIC FUNTION PANEL (STL) GREEN LI/HEP BLD/PLAS PLASMA SP [facility] Jan 15, 2025 12:00 AM Laboratory - Chemistry Order FERRITIN GOLD/RED SST SERUM SP [facility] Jan 15, 2025 12:00 AM Laboratory - Chemistry Order ALPHA-1 ANTITRYPSIN (STL-PB) GOLD/RED SST SERUM SP [facility] Jan 15, 2025 12:00 AM Laboratory - Chemistry Order HEP C Ab HCV Ab (STL) GOLD/RED SST SERUM SP [facility] Feb 09, 2025 12:18 PM Laboratory - Chemistry Order URINALYSIS W/ CX REFLEX (STL-PB) URN - CLEAN CATCH URINE WC ONCE [facility] Mar 01, 2025 12:00 AM Laboratory - Chemistry Order OCCULT BLOOD FIT X1 SCREEN STOOL FECES SP [facility] Mar 01, 2025 12:00 AM Laboratory - Microbiology Order C&S URINE URINE HOLT WC ONCE [facility] Mar 01, 2025 12:00 AM Laboratory - Chemistry Order ANTITHROMBIN III ACTIVITY BLUE,LIGHT(SODIUM CITRATE) PLASMA SP [facility] Mar 01, 2025 09:36 AM Consult Order EYE CLINIC OUTPT [facility] Cons Regeneration Operator's [facility] Mar 01, 2025 09:36 AM Consult Order VASCULAR LAB OUTPT STL Cons Regeneration Operator's [facility] Mar 01, 2025 09:36 AM Consult Order CARDIOLOGY OUTPT [facility] Results: +/- 30 days of the [...] Type Comment Feb 10, 2025 12:51 PM [facility] GLUCOSE,BLOOD-poct (STL) BLOOD Specimen Type: BLOOD Comment: Test Performed by: [id number] Meter #: [id number] Ordering Provider: RAMOSMaxim Athletic Report Released Date/Time: Feb 10, 2025 12:53 PM Reporting Lab: [place] [address] [facility] [address] Performing Lab: [place] [address] [facility] [address] GLUCOSE,BLOOD-poct (STL) 199 mg/dL H 72-99 Feb 10, 2025 05:13 AM [facility] GLUCOSE,BLOOD-poct (STL) BLOOD Specimen Type: BLOOD Comment: Test Performed by: [id number] Meter #: [id number] Ordering Provider: HipLinkKittyMaxim Athletic Report Released Date/Time: Feb 10, 2025 05:37 AM Reporting Lab: [place] [address] [facility] [address] Performing Lab: [place] [address] [facility] [address] GLUCOSE,BLOOD-poct (STL) 95 mg/dL 72-99 Feb 09, 2025 11:20 PM [facility] APTT PLASMA Specimen Type: PLASM A Comment: ~HEP BOLUS - CALL RESULTS Ordering Provider: JESSE BURGOS Report Released Date/Time: Feb 09, 2025 04:35 PM Reporting Lab: [address] [address] Performing Lab: [place] [address] [facility] [address] APTT 29.9 s 26.7-39.9 Feb 09, 2025 08:35 PM [facility] GLUCOSE,BLOOD-poct (STL) BLOOD Specimen Type: BLOOD Comment: Test Performed by: [id number] Meter #: [id number] Ordering Provider: ANN BEASLEY Report Released Date/Time: Feb 09, 2025 08:41 PM Reporting Lab: [place] [address] [facility] [address] Performing Lab: [address] [address] GLUCOSE,BLOOD-poct (STL) 159 mg/dL H 72-Feb 09, 2025 05:22 PM [facility] MRSA SURVL NARES DNA NARES Specimen Type: [...] Feb 09, 2025 04:31 PM Reporting Lab: [place] [address] [facility] [address] Performing Lab: [place] [address] [facility] [address] MRSA SURVL NARES DNA Negative Negative Feb 09, 2025 05:00 PM [facility] APTT PLASMA Specimen Type: PLASM A Comment: ~HEP BOLUS-CALL RESULTS Ordering Provider: JESSE BURGOS Report Released Date/Time: Feb 09, 2025 04:35 PM Reporting Lab: [place] [address] [facility] [address] Performing Lab: [place] [address] [facility] [address] APTT 28.0 s 26.7-39.9 Feb 09, 2025 04:59 PM [facility] GLUCOSE,BLOOD-poct (STL) BLOOD Specimen Type: BLOOD Comment: Test Performed by: [id number] Meter #: [id number] Ordering Provider: ANN BEASLEY Report Released Date/Time: Feb 09, 2025 05:02 PM Reporting Lab: [place] [address] [place] [facility] [address] Performing Lab: [place] [address] [facility] [address] GLUCOSE,BLOOD-poct (STL) 162 mg/dL H 72-99 Feb 09, 2025 01:55 PM [facility] LACTIC ACID (STL-PB) PLASMA Specimen Type: TAMARA SMA No comment entered. Ordering Provider: CHINO LEONG I Report Released Date/Time: Feb 09, 2025 01:44 PM Reporting Lab: [place] [address] [facility] [address] Performing Lab: [address] [address] LACTIC ACID (STL-PB) 2.9 mmol/L H 0.5-2.0 Feb 09, 2025 11:52 AM [facility] BLOOD GAS PANEL ABG (STL) VENOUS BLOOD Specimen Type : VENOUS BLOOD Comment: Test Performed by: [id number] Meter #: [id number] Ordering Provider: ANNIE ARGUETA Report Released Date/Time: Feb 09, 2025 11:53 AM Reporting Lab: [facility] [address] [facility] [address] Performing Lab: [facility] [address] [facility] [address] GEM PH 7.40 7.31-7.41 GEM PCO2 36 [...] TEMP 37.0 Feb 09, 2025 11:51 AM [facility] BRAIN NATRIURETIC PEPTIDE PLASMA Specimen Type : PLASMA No comment entered. Ordering Provider: CHINO LEONG I Report Released Date/Time: Feb 09, 2025 01:19 PM Reporting Lab: [facility] [address] [facility] [address] Performing Lab: [place] [address] [facility] [address] BRAIN NATRIURETIC PEPTIDE 341.6 pg/mL H 0- 100 Feb 09, 2025 11:31 AM [facility] TROPONIN I (STL) PLASMA Specimen Type: PLASM A Comment: No hemolysis noted. Ordering Provider: KESHIA HUYNH Report Released Date/Time: Feb 09, 2025 11:30 AM Reporting Lab: [place] [address] [place] [phone] Performing Lab: [facility] [address] [facility] [address] TROPONIN I (STL) 0.019 ng/mL 0-0.033 Feb 09, 2025 11:31 AM [facility] CBC BLOOD Specimen Type: BLOOD No comment entered. Ordering Provider: KESHIA HUYNH Report Released Date/Time: Feb 09, 2025 11:30 AM Reporting Lab: [address] [address] Performing Lab: [place] [address] [facility] [address] WBC 5.6 10*3/uL 3.6-11.2 RBC 3.71 10*6/uL [...] 0.09 10*3/uL 0.00-0. 20 Feb 09, 2025 11:31 AM [facility] COMPREHENSIVE METABOLIC PANEL PLASMA Specimen Type: PLASMA Comment: No hemolysis noted. Ordering Provider: KESHIA HUYNH Report Released Date/Time: Feb 09, 2025 11:30 AM Reporting Lab: [place] [address] [facility] [address] Performing Lab: [address] [address] CREATININE 0.96 mg/dL 0.7-1.3 UREA NITROGEN 16.8 [...] (CKD-EPI 2020) 80.4 >60 Feb 09, 2025 11:20 AM [facility] GLUCOSE,BLOOD-poct (STL) BLOOD Specimen Type: BLOOD Comment: Test Performed by: [id number] Meter #: [id number] Ordering Provider: ANNIE ARGUETA Report Released Date/Time: Feb 09, 2025 11:22 AM Reporting Lab: [address] [address] Performing Lab: [address] [address] GLUCOSE,BLOOD-poct (STL) 161 mg/dL H 72-99 Social History: Smoking Status (Most current) and Tobacco Use (All prior to encounter date) This section includes the most current, and the historical, smoking and tobacco- related health factors from the [place] facility where the Encounter took place. Current Smoking Status This section includes the most current smoking, or tobacco-related health factor, from the [place] facility where the Encounter took place. Date/Time Current Smoking Status Comment Facil ity Jun 10, 2024 11:21 AM VA-TOBACCO USE FOR HANK CIGARETTES [facility] Tobacco Use History This section includes a history of the smoking, or tobacco-related health factors, that were collected on or before the date of the Encounter. The data comes from the [place] facility where the Encounter took place. Date/Time Smoking Status/Tobacco Use Comment F jose Jun 10, 2024 11:21 AM [place]-TOBACCO USE FOR HANK CIGARETTES [facility] Radiology Reports: +/- 30 days of [...] the Encounter. The data comes from all [place] treatment facilities. Date/Time Radiology Report Provider Source Feb 10, 2025 11:29 AM US EXTREMITY VEINS BILAT (DVT): JOSE MARIA MATTHEWS [id number] -1945 M Exm Date: FEB 10, 2025@11:29 Req Phys: JESSE BURGOS Pat Loc: 6N S OE-JESSICA/02-10-2025@13:14 Img Loc: JESS[facility]-ULTRASOUND [facility] Service: [id number] SERVICE [address] [address] (Case [id number] COMPLETE) US EXTREMITY VEINS BILAT (DVT) (US Detailed) CPT:58773 Reason for Study: dx with PE Clinical History: Report Status: Verified Date Reported: FEB 10, 2025 Date Verified: FEB 10, 2025 Mobile Battery Technician E-Sig:/ES/David Pastrana MD Report: CASE #: [id number] DATE:02/10/2025 12:51 PM CLINICAL HISTORY:dx with PE [...] verification. Dictated by Chastity Mantilla M.D. (Diagnostic Sanitary Landfill Supervisor). I, David Pastrana, have reviewed the images and report and concur with these findings. Primary Interpreting Staff: David Pastrana MD, Radiologist (Mobile Battery Technician) Primary Interpreting Resident: Chastity Mantilla MD, Resident Physician /DAVID WILCOX [facility] Feb 09, 2025 03:[address] PE CHEST W/3D: JOSE MARIA MATTHEWS RODRIGUE [id number] -1945 M Exm Date: FEB 09, 2025@15:10 Req Phys: CHINO LEONG I Pat Loc: 6N S -[facility]ESSICA/02-09-2025@16:39 Im Loc: JESS[facility]-CT IMAGING Service: [address] [address] (Case [id number] COMPLETE) CT THORAX W/CONT (PE) (CT Detailed) CPT:12901 Contrast Media : unspecified contrast media Reason for Study: syncope, abormanl CXR Clinical History: Responsible Attending: Mariam Attending Contact Number: [phone] Resident Contact Number: syncope, abormanl CXR Allergies listed in CPRS chart: PENICILLIN, TETRACYCLINE, NEOSPORIN, CELEBREX, SIMVASTATIN Creatinine: CREATININE 0.96 mg/dL 02/09/2025 11:31 /eGFR: STL EGFR (within one year). CREATININE 0.96 mg/dL (02/09/25 11:31) Wt: 273.5 lb [124.06 kg] (09/10/2023 13:16) History of: Renal failure, chronic or acute renal disease: NO Report Status: Verified Date Reported: FEB 09, 2025 Date Verified: FEB 09, 2025 Mobile Battery Technician E-Sig:/SUNSHINE/REA MARLEY Report: CASE #: [id number] DATE:02/09/2025 4:08 PM CLINICAL HISTORY:syncope, abormanl CXR [...] confirmation. Dictated by Jamal Chiu M.D. (Diagnostic Sanitary Landfill Supervisor). IRea, have reviewed the images and report and concur with these findings. Primary Interpreting Staff: REA MARLEY, Staff Physician (Mobile Battery Technician) Primary Interpreting Resident: JAMAL CHIU Resident Physician /REA HOPE [facility] Feb 09, 2025 01:[address] HEAD W/O CONT: JOSE MARIA MATTHEWS [id number] -1945 M Exm Date: FEB 09, 2025@13:01 Req Phys: CHINO LEONG I Pat Loc: [facility]ESS[facility]-EMERGENCY DEPT 2ND SHIFT (R Img Loc: [facility]-CT IMAGING [facility]ICA Service: Unknown [facility] [address] [place] [address] (Case [id number] COMPLETE) CT HEAD W/O CONT (CT Detailed) CPT:98072 Reason for Study: syncopal episode Clinical History: Responsible Attending: Mariam Attending Contact Number: [phone] Resident Contact Number: syncopal episode Allergies listed in CPRS chart: PENICILLIN, TETRACYCLINE, NEOSPORIN, CELEBREX, SIMVASTATIN Creatinine: CREATININE 0.90 mg/dL 08/07/2024 14:00 /eGFR: STL EGFR (within one year). CREATININE 0.90 mg/dL (08/07/24 14:00) Wt: 273.5 lb [124.06 kg] (09/10/2023 13:16) History of: Renal failure, chronic or acute renal disease: NO Report Status: Verified Date Reported: FEB 09, 2025 Date Verified: FEB 09, 2025 Mobile Battery Technician E-Sig:/ES/REA MARLEY Report: CASE #: [id number] DATE:02/09/2025 1:35 PM CLINICAL HISTORY:syncopal episode TECHNIQUE: [...] process. Dictated by Jamal Chiu M.D. (Diagnostic Sanitary Landfill Supervisor). I, Rea Marley, have reviewed the images and report and concur with these findings. Primary Interpreting Staff: REA MARLEY, Staff Physician (Mobile Battery Technician) Primary Interpreting Resident: JAMAL CHIU, Resident Physician /REA HOPE [facility] Feb 09, 2025 11:32 AM CHEST PORTABLE: JOSE MARIA MATTHEWS [id number] -1945 M Exm Date: FEB 09, 2025@11:32 Req Phys: KESHIA HUYNH Valerie Loc: -EMERGENCY DEPT 2ND SHIFT (R Img Loc: -MAIN RADIOLOGY SUITE Service: Unknown [facility] [address] [place] [address] (Case [id number] COMPLETE) CHEST PORTABLE (RAD Detailed) CPT:04845 Proc Modifiers : Portable Reason for Study: hypotension Clinical History: Report Status: Verified Date Reported: FEB 09, 2025 Date Verified: FEB 09, 2025 Mobile Battery Technician E-Sig:/ES/David Pastrana MD Report: CASE [id number]. AP portable view chest. COMPARISON: FINDINGS: Bilateral [...] effusion. Dictated by Jamal Chiu M.D. (Diagnostic Sanitary Landfill Supervisor). I, David Pastrana, have reviewed the images and report and concur with these findings. Primary Interpreting Staff: David Pastrana MD, Radiologist (Mobile Battery Technician) Primary Interpreting Resident: Resident HAL Physician /DAVID WADE [facility] Pathology Reports: +/- 30 days of [...] the Encounter. The data comes from all [place] treatment facilities. Date/Time Pathology Report Provider Source Feb 09, 2025 12:20 PM LR MICROBIOLOGY RE PORT: Accession [UID]: [id number] [[id number]] Received: Feb 09, 2025@12:29 Collection sample: B D BLD. BOTTLE Collection date: Feb 09, 2025 12:20 Site/Specimen: BLOOD Provider: ANNIE ARGUETA T Test(s) ordered: BLOOD CULT (SET 1)............ completed: Feb 15, 2025 12:44 * BACTERIOLOGY FINAL REPORT => Feb 15, 2025 12:46 TECH CODE: [id number] Bacteriology Remark(s): 02/10/25 CMG CULTURE IS NEGATIVE TO DATE, ALL POSITIVES ARE ROUTINELY CALLED. Culture shows NO GROWTH IN 6 DAYS. 02/15/25 CED =--=--=--=--=--=--=--=--=--=- -=--=--=--=--=--=--=--=--=--= --=--=--=--=--=--=-- Performing Laboratory: Bacteriology Report Performed By: [address] CLIA# [id number] [address] [place] [address] Bact Report Remark Performed By: [facility] [address] CLIA# [id number] [address] [place] [address] Feb 09, 2025 12:15 PM LR MICROBIOLOGY RE PORT: Accession [UID]: [id number] [[id number]] Received: Feb 09, 2025@12:29 Collection sample: B D BLD. BOTTLE (SET 2)Collection date: Feb 09, 2025 12:15 Site/Specimen: BLOOD Provider: ANNIE ARGUETA T Test(s) ordered: BLOOD CULT (SET 2)............ completed: Feb 15, 2025 12:45 * BACTERIOLOGY FINAL REPORT => Feb 15, 2025 12:46 TECH CODE: [id number] Bacteriology Remark(s): 02/10/25 CMG CULTURE IS NEGATIVE TO DATE, ALL POSITIVES ARE ROUTINELY CALLED. Culture shows NO GROWTH IN 6 DAYS. 02/15/25 CED =--=--=--=--=--=--=--=--=--=- -=--=--=--=--=--=--=--=--=--= --=--=--=--=--=--=-- Performing Laboratory: Bacteriology Report Performed By: [address]# [id number] [address] [place] [phone] Bact Report Remark Performed By: [address]# [id number] [address] [place], [place] [id number] [address] Encounter Notes: All associated encounter notes This section contains the clinical notes associated to the Encounter. Date/Time Encounter Note(s) Provider Source Jan 18, 2025 01:20 PM PHYSICIAN LETTERS: LOCAL TITLE: PHYSICIAN LETTERS STANDARD TITLE: PHYSICIAN LETTERS DATE OF NOTE: JAN 18, 2025@13:20 ENTRY DATE: JAN 18, 2025@13:20:36 AUTHOR: CHELSY JAMISON EXP COSIGNER: URGENCY: STATUS: [place] [address] JOSE MARIA MATTHEWS [address] [address] Dear Jose Maria Matthews: Thank you for choosing the [facility] as your primary choice for health care. A home heart monitor has been ordered for you, this will be sent to you by [employer] via [employer]. Please plan to wear the monitor for the prescribed time period of 14 days. After you complete the monitoring period, please send the monitor back via [employer] in the pre-addressed/pre-paid box it came in. DO NOT GIVE TO THE POST OFFICE UNLESS THAT IS SPECIFIED ON THE RETURN LABEL [employer] will generate a report, which will be reviewed by a [place] Commissary Clerk, results will be uploaded to your record. [employer] contact number is [phone] 24 hours/day You may receive a text asking you to confirm the appt, please answer yes. Please call us at [phone], extension [phone] [facility] [phone] if you have any questions. If you would like help applying or removing your monitor you are welcome to come to either the [facility] EKG office 0730-1600pm [facility] Building 1 room B206 (next to Blood Draw)ext. [phone] or the EKG office [facility] 9985-6235 [facility] 55 Room 2C-124 Nurse Practitioner Clinic ext. [phone] Your good health is important to us. Thank you for your service! Sincerely, CHELSY JAMISON Medical Casting Trucker/EKG CHRISTOPHER,JOSE MARIA JAMISON,CHELSY GALEAS [facility]
--- OUTSIDE RECORDS SUMMARY | 2025-01-23 | XMS_ITS | Encounter Summary ---
Author Name [facility] ([place]) Organization [facility] ([place]) Address [address] [place] [address] Care Team Providers Care Industrial Engineer Name Role Phone GRACE QUINN Primary Care Provider UnavailKAYODE Mraquez Primary Care Provider Unavail able RACHAEL CARDONA [...] Name Patient's Relationship to Policy [facility] MEDICARE SUPPLEMEN SHEILA PLANF Mar 25, 2016 PLAN [id number] IS[address] JO[address] MARIA PATIENT [facility] MEDICARE SUPPLEMEN SHEILA PLANF Oct 23, 2010 PLANF [id number] JOSE MARIA WHITE PATIENT [facility] MEDICARE SUPPLEMEN SHEILA PLANF Mar 25, 2016 PLANF [id number] JOSE MARIA WHITEP MED SUPP MEDICARE SUPPLEMEN SHEILA PLANF Oct 23, 2010 PLANF [id number] [phone] JOSE MARIA WHITEP [facility] (WNR) MEDICARE ADVANTAGE [facility] (WNR) July 24, 2023 [id number] JOSE MARIA WHITE PATIENT MEDICARE (WNR) MEDICARE (M) PART A July 24, 2003 PART A [id number] JOSE MARIA WHITE PATIENT MEDICARE (WNR) MEDICARE (M) PART B July 24, 2003 PART B [id number] [phone] JOSE MARIA WHITE PATIENT MEDICARE (WNR) MEDICARE (M) PART A July 24, 2003 PART A [id number] JOSE MARIA WHITE PATIENT [facility] (WNR) MEDICARE ADVANTAGE [facility] (WNR) Mar 25, 2024 [id number] JOSE MARIA WHITE [facility] (WNR) MEDICARE ADVANTAGE [facility] (WNR) Mar 25, 2024 [id number] JOSE MARIA WHITE PATIENT Selected Encounter This section includes the information on record at [place] for the Encounter. Date/Time Encounter Type Encounter Description Reason Provider Source Jan 23, 2025 06:00 AM Outpatient Encounter GENERAL INTERNAL MEDICINE CARLOS ESQUIVEL Encounter Template Text not used by [place] Plan of Treatment: Future Appointments (+ 6 months) and Future Tests (+/- 45 days) The Plan of Treatment section includes future care activities for the patient from all [place] treatmentfacilities. This section includes future appointments and future orders which are active, pending or scheduled. Future Appointments This section includes appointments that were scheduled to occur 6 months from the date of the Encounter, up to a maximum of 20 appointments. The data comes from all [place] treatment facilities. Appointment Date/Time Appointment Type Appointme nt Facility Name Jan 24, 2025 02:00 PM AMBULATORY - NONE [facility] Jan 26, 2025 08:00 AM AMBULATORY - NONE [facility] Jan 26, 2025 02:00 PM AMBULATORY - REHAB MEDICIN E [facility] Feb 09, 2025 11:00 AM AMBULATORY - MEDICINE [facility] Feb 09, 2025 11:18 AM AMBULATORY - MEDICINE [facility] Feb 12, 2025 01:30 PM AMBULATORY - NONE [facility] Mar 15, 2025 01:30 PM AMBULATORY - NONE [facility] Mar 31, 2025 10:00 AM AMBULATORY - MEDICINE [facility] Mar 31, 2025 12:00 PM AMBULATORY - SURGERY . [facility] Mar 31, 2025 02:30 PM AMBULATORY - MEDICINE [facility] Apr 09, 2025 11:00 AM AMBULATORY - MEDICINE [facility] May 03, 2025 03:00 PM AMBULATORY - NONE [facility] Active, Pending, and Scheduled Orders This section includes a listing of several types of active, pending, and scheduled orders, including clinic medications orders, diagnostic test orders, procedure orders and consult orders; where the start date of the order is 45 days before the date of the Encounter or 45 days after the date of theEncounter. The data comes from all [place] treatment facilities. 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 STL Cons Acupuncture Physician's Choice [facility] Jan 15, 2025 12:00 AM Laboratory - Chemistry Order CELIAC DISEASE PANEL (STL-MRN) GOLD/RED SST SERUM SP ONCE [facility] Jan 15, 2025 12:00 AM Laboratory - Chemistry Order IRON/TIBC PROFILE GOLD/RED SST SERUM SP [facility] Jan 15, 2025 12:00 AM Laboratory - Chemistry Order ANTI-NUCLEAR ANTIBODY (STL-PB) GOLD/RED SST SERUM SP [facility] Jan 15, 2025 12:00 AM Laboratory - Chemistry Order ANTI-MITOCHONDRIAL AB (STL-PB) GOLD/RED SST SERUM SP [facility] Jan 15, 2025 12:00 AM Laboratory - Chemistry Order ACTIN (SMOOTHMUSCLE) ANTIBODY IGG GOLD/RED SST SERUM SP [facility] Jan 15, 2025 12:00 AM Laboratory - Chemistry Order HEP HB S Ag (AUSRIA) (STL) GOLD/RED SST SERUM SP [facility] Jan 15, 2025 12:00 AM Laboratory - Chemistry Order IGG (STL) GOLD/RED SST SERUM [facility] Jan 15, 2025 12:00 AM Laboratory - Chemistry Order HEP B CORE AB TOTAL. (STL) GOLD/RED SST SERUM SP [facility] Jan 15, 2025 12:00 AM Laboratory - Chemistry Order HEPATITIS B SURFACE AB PNL GOLD/RED SST SERUM [facility] Jan 15, 2025 12:00 AM Laboratory - Chemistry Order HEPATITIS A IGG AB (STL) GOLD/RED SST SERUM [facility] Jan 15, 2025 12:00 AM Laboratory - Chemistry Order HEPATIC FUNTION PANEL (STL) GREEN LI/HEP BLD/PLAS PLASMA SP [facility] Jan 15, 2025 12:00 AM Laboratory - Chemistry Order FERRITIN GOLD/RED SST SERUM [facility] Jan 15, 2025 12:00 AM Laboratory - Chemistry Order ALPHA-1 ANTITRYPSIN (STL-PB) GOLD/RED SST SERUM [facility] Jan 15, 2025 12:00 AM Laboratory - Chemistry Order HEP C Ab HCV Ab (STL) GOLD/RED SST SERUM [facility] Feb 09, 2025 12:18 PM Laboratory - Chemistry Order URINALYSIS W/ CX REFLEX (STL-PB) URN - CLEAN CATCH URINE WC ONCE [facility] Mar 01, 2025 12:00 AM Laboratory - Chemistry Order OCCULT BLOOD FIT X1 SCREEN STOOL FECES SP [facility] Mar 01, 2025 12:00 AM Laboratory - Microbiology Order C&S URINE URINE HOLT WC ONCE [facility] Mar 01, 2025 12:00 AM Laboratory - Chemistry Order ANTITHROMBIN III ACTIVITY BLUE,LIGHT(SODIUM CITRATE) PLASMA [facility] Mar 01, 2025 09:36 AM Consult Order EYE CLINIC OUTPT [facility] Cons Acupuncture Physician's Choice [facility] Mar 01, 2025 09:36 AM Consult Order VASCULAR LAB OUTPT [facility] Cons Acupuncture Physician's Choice [facility] Mar 01, 2025 09:36 AM Consult Order CARDIOLOGY OUTPT [facility] Cons Acupuncture Physician's Choice [facility] Mar 08, 2025 12:00 PM Laboratory - Chemistry Order FACTOR V(LEIDEN)MUTATION ANALYSIS BLOOD SP [facility] Mar 09, 2025 12:00 AM Laboratory - Chemistry Order URINE DRUG SCREEN (STL) URINE YELLOW SP [facility] Lab Results: +/- 30 days of the [...] Type Comment Feb 10, 2025 12:51 PM [facility] GLUCOSE,BLOOD-poct (STL) BLOOD Specimen Type: BLOOD Comment: Test Performed by: [id number] Meter #: [id number] Ordering Provider: ANN BEASLEY Report Released Date/Time: Feb 10, 2025 12:53 PM Reporting Lab: [place] [address] [facility] [address] Performing Lab: [address] [address] GLUCOSE,BLOOD-poct (STL) 199 mg/dL H 72-99 Feb 10, 2025 05:13 AM [facility] GLUCOSE,BLOOD-poct (STL) BLOOD Specimen Type: BLOOD Comment: Test Performed by: [id number] Meter #: [id number] Ordering Provider: ANN BEASLEY Report Released Date/Time: Feb 10, 2025 05:37 AM Reporting Lab: [place] [address] [facility] [address] Performing Lab: [address] [address] GLUCOSE,BLOOD-poct (STL) 95 mg/dL 72-99 Feb 09, 2025 11:20 PM [facility] APTT PLASMA Specimen Type: PLASM A Comment: ~HEP BOLUS - CALL RESULTS Ordering Provider: JESSE BURGOS Report Released Date/Time: Feb 09, 2025 04:35 PM Reporting Lab: [place] [address] [facility] [address] Performing Lab: [place] [address] [facility] [address] APTT 29.9 s 26.7-39.9 Feb 09, 2025 08:35 PM [facility] GLUCOSE,BLOOD-poct (STL) BLOOD Specimen Type: BLOOD Comment: Test Performed by: [id number] Meter #: [id number] Ordering Provider: ANN BEASLEY Report Released Date/Time: Feb 09, 2025 08:41 PM Reporting Lab: [place] [address] [facility] [address] Performing Lab: [place] [address] [facility] [address] GLUCOSE,BLOOD-poct (STL) 159 mg/dL H 72-99 Feb 09, 2025 05:22 PM [facility] MRSA SURVL NARES DNA NARES Specimen [...] Feb 09, 2025 04:31 PM Reporting Lab: [place] [address] [facility] [address] Performing Lab: [place] [address] [facility] [address] MRSA SURVL NARES DNA Negative Negative Feb 09, 2025 05:00 PM [facility] APTT PLASMA Specimen Type: PLASM A Comment: ~HEP BOLUS-CALL RESULTS Ordering Provider: JESSE BURGOS Report Released Date/Time: Feb 09, 2025 04:35 PM Reporting Lab: [place] [address] [address] [address] Performing Lab: [place] [address] [facility] [address] APTT 28.0 s 26.7-39.9 Feb 09, 2025 04:59 PM [facility] GLUCOSE,BLOOD-poct (L) BLOOD Specimen Type: BLOOD Comment: Test Performed by: [id number] Meter #: [id number] Ordering Provider: ANN BEASLEY Report Released Date/Time: Feb 09, 2025 05:02 PM Reporting Lab: [place] [address] [address] [facility] [address] Performing Lab: [place] [address] [facility] [address] GLUCOSE,BLOOD-poct (STL) 162 mg/dL H 72-99 Feb 09, 2025 01:55 PM [facility] LACTIC ACID (STL-PB) PLASMA Specimen Type: TAMARA SMA No comment entered. Ordering Provider: CHINO LEONG I Report Released Date/Time: Feb 09, 2025 01:44 PM Reporting Lab: [place] [address] [facility] [address] Performing Lab: [place] [address] [facility] [address] LACTIC ACID (STL-PB) 2.9 mmol/L H 0.5-2.0 Feb 09, 2025 11:52 AM [facility] BLOOD GAS PANEL ABG (L) VENOUS BLOOD Specimen Type : VENOUS BLOOD Comment: Test Performed by: [id number] Meter #: [id number] Ordering Provider: ANNIE ARGUETA Report Released Date/Time: Feb 09, 2025 11:53 AM Reporting Lab: [address] [address] Performing Lab: [address] [address] GEM PH 7.40 7.31-7.41 GEM PCO2 36 [...] TEMP 37.0 Feb 09, 2025 11:51 AM [facility] BRAIN NATRIURETIC PEPTIDE PLASMA Specimen Type : PLASMA No comment entered. Ordering Provider: CHINO LEONG I Report Released Date/Time: Feb 09, 2025 01:19 PM Reporting Lab: [address] [address] Performing Lab: [address] [address] BRAIN NATRIURETIC PEPTIDE 341.6 pg/mL H 0- 100 Feb 09, 2025 11:31 AM [facility] TROPONIN I (STL) PLASMA Specimen Type: PLASM A Comment: No hemolysis noted. Ordering Provider: KESHIA HUYNH Report Released Date/Time: Feb 09, 2025 11:30 AM Reporting Lab: [address] [address] Performing Lab: [address] [place] [address] TROPONIN I (STL) 0.019 ng/mL 0-0.033 Feb 09, 2025 11:31 AM [facility] CBC BLOOD Specimen Type: BLOOD No comment entered. Ordering Provider: KESHIA HUYNH Report Released Date/Time: Feb 09, 2025 11:30 AM Reporting Lab: [address] [address] Performing Lab: [address] [address] WBC 5.6 10*3/uL 3.6-11.2 RBC 3.71 10*6/uL [...] 0.00-0. 20 Feb 09, 2025 11:31 AM [facility] COMPREHENSIVE METABOLIC PANEL PLASMA Specimen Type: PLASMA Comment: No hemolysis noted. Ordering Provider: KESHIA HUYNH Report Released Date/Time: Feb 09, 2025 11:30 AM Reporting Lab: [address] [address] Performing Lab: [address] [address] CREATININE 0.96 mg/dL 0.7-1.3 UREA NITROGEN 16.8 [...] 80.4 >60 Feb 09, 2025 11:20 AM [facility] GLUCOSE,BLOOD-poct (STL) BLOOD Specimen Type: BLOOD Comment: Test Performed by: [id number] Meter #: [id number] Ordering Provider: ANNIE ARGUETA Report Released Date/Time: Feb 09, 2025 11:22 AM Reporting Lab: [facility] [address] [facility] [address] Performing Lab: [facility] [address] [facility] [address] GLUCOSE,BLOOD-poct (STL) 161 mg/dL H 72-99 Social History: Smoking Status (Most current) and Tobacco Use (All prior to encounter date) This section includes the most current, and the historical, smoking and tobacco- related health factors from the [place] facility where the Encounter took place. Current Smoking Status This section includes the most current smoking, or tobacco-related health factor, from the [place] facility where the Encounter took place. Date/Time Current Smoking Status Comment Vanessa ity Jun 10, 2024 11:21 AM VA-TOBACCO USE FOR HANK CIGARETTES [facility] Tobacco Use History This section includes a history of the smoking, or tobacco-related health factors, that were collected on or before the date of the Encounter. The data comes from the [place] facility where the Encounter took place. Date/Time Smoking Status/Tobacco Use Comment F acgideon Jun 10, 2024 11:21 AM VA-TOBACCO USE FOR HANK CIGARETTES [facility] Radiology Reports: +/- 30 days of [...] the Encounter. The data comes from all [place] treatment facilities. Date/Time Radiology Report Provider Source Feb 10, 2025 11:29 AM US EXTREMITY VEINS BILAT (DVT): JOSE MARIA WHITE [id number] -1945 M Exm Date: FEB 10, 2025@11:29 Req Phys: JESSE BURGOS Pat Loc: 6N S -[facility]/02-10-2025@13:14 Img Loc: -ULTRASOUND Service: [id number] SERVICE [address] [address] (Case [id number] COMPLETE) US EXTREMITY VEINS BILAT (DVT) (US Detailed) CPT:37074 Reason for Study: dx with PE Clinical History: Report Status: Verified Date Reported: FEB 10, 2025 Date Verified: FEB 10, 2025 Chef Teacher E-Sig:/ES/David Pastrana MD Report: CASE #: [id number] DATE:02/10/2025 12:51 PM CLINICAL HISTORY:dx with PE [...] verification. Dictated by Chastity Mantilla M.D. (Diagnostic Access Services Assistant). I, David Pastrana, have reviewed the images and report and concur with these findings. Primary Interpreting Staff: David Pastrana MD, Radiologist (Chef Teacher) Primary Interpreting Resident: Chastity Mantilla MD, Resident Physician /DAVID WILCOX [facility] Feb 09, 2025 03:[address] PE CHEST W/3D: JOSE MARIA WHITE [id number] -1945 M Exm Date: FEB 09, 2025@15:10 Req Phys: CHINO LEONG I Pat Loc: 6N S -[place]/02-09-2025@16:39 Img Loc: [facility]-CT IMAGING [facility] Service: [address] [address] (Case [id number] COMPLETE) CT THORAX W/CONT (PE) (CT Detailed) CPT:08322 Contrast Media : unspecified contrast media Reason for Study: syncope, abormanl CXR Clinical History: Responsible Attending: Mariam Attending Contact Number: [id number] Resident Contact Number: syncope, abormanl CXR Allergies listed in CPRS chart: PENICILLIN, TETRACYCLINE, NEOSPORIN, CELEBREX, SIMVASTATIN Creatinine: CREATININE 0.96 mg/dL 02/09/2025 11:31 /eGFR: STL EGFR (within one year). CREATININE 0.96 mg/dL (02/09/25 11:31) Wt: 273.5 lb [124.06 kg] (09/10/2023 13:16) History of: Renal failure, chronic or acute renal disease: NO Report Status: Verified Date Reported: FEB 09, 2025 Date Verified: FEB 09, 2025 Chef Teacher E-Sig:/ES/REA MARLEY Report: CASE #: [id number] DATE:02/09/2025 4:08 PM CLINICAL HISTORY:syncope, abormanl CXR [...] confirmation. Dictated by Jamal Chiu M.D. (Diagnostic Access Services Assistant). I, Rea Marley, have reviewed the images and report and concur with these findings. Primary Interpreting Staff: REA MARLEY, Staff Physician (Chef Teacher) Primary Interpreting Resident: JAMAL CHIU Resident Physician /REA HOPE [facility] Feb 09, 2025 01:[address] HEAD W/O CONT: JOSE MARIA WHITE [id number] -1945 M Exm Date: FEB 09, 2025@13:01 Req Phys: CHINO LEONG Loc: [facility]-EMERGENCY DEPT 2ND SHIFT (R Img Loc: [facility]-CT IMAGING [facility] Service: Unknown [facility] [address] [place] [address] (Case [id number] COMPLETE) CT HEAD W/O CONT (CT Detailed) CPT:58484 Reason for Study: syncopal episode Clinical History: Responsible Attending: Mariam Attending Contact Number: [id number] Resident Contact Number: syncopal episode Allergies listed in CPRS chart: PENICILLIN, TETRACYCLINE, NEOSPORIN, CELEBREX, SIMVASTATIN Creatinine: CREATININE 0.90 mg/dL 08/07/2024 14:00 /eGFR: STL EGFR (within one year). CREATININE 0.90 mg/dL (08/07/24 14:00) Wt: 273.5 lb [124.06 kg] (09/10/2023 13:16) History of: Renal failure, chronic or acute renal disease: NO Report Status: Verified Date Reported: FEB 09, 2025 Date Verified: FEB 09, 2025 Chef Teacher E-Sig:/ES/REA MARLEY Report: CASE #: [id number] DATE:02/09/2025 1:35 PM CLINICAL HISTORY:syncopal episode TECHNIQUE: [...] process. Dictated by Jamal Chiu M.D. (Diagnostic Access Services Assistant). I, Rea Marley, have reviewed the images and report and concur with these findings. Primary Interpreting Staff: REA MARLEY, Staff Physician (Chef Teacher) Primary Interpreting Resident: JAMAL CHIU, Resident Physician /REA HOPE [facility] Feb 09, 2025 11:32 AM CHEST PORTABLE: JOSE MARIA WHITE [id number] -1945 M Exm Date: FEB 09, 2025@11:32 Req Phys: KESHIA HUYNH Loc: [facility]-EMERGENCY DEPT 2ND SHIFT (R Img Loc: -MAIN RADIOLOGY SUITE Service: Unknown [facility] [address] [place] [address] (Case [id number] COMPLETE) CHEST PORTABLE (RAD Detailed) CPT:68132 Proc Modifiers : Portable Reason for Study: hypotension Clinical History: Report Status: Verified Date Reported: FEB 09, 2025 Date Verified: FEB 09, 2025 Chef Teacher E-Sig:/ES/David Pastrana MD Report: CASE [id number]. AP portable view chest. COMPARISON: FINDINGS: Bilateral [...] effusion. Dictated by Jamal Chiu M.D. (Diagnostic Access Services Assistant). I, Davdi Pastrana, have reviewed the images and report and concur with these findings. Primary Interpreting Staff: David Pastrana MD, Radiologist (Chef Teacher) Primary Interpreting Resident: Resident HAL Physician /DAVID WADE [facility] Pathology Reports: +/- 30 days of [...] the Encounter. The data comes from all [place] treatment facilities. Date/Time Pathology Report Provider Source Feb 09, 2025 12:20 PM LR MICROBIOLOGY RE PORT: Accession [UID]: [id number] [[id number]] Received: Feb 09, 2025@12:29 Collection sample: B D BLD. BOTTLE Collection date: Feb 09, 2025 12:20 Site/Specimen: BLOOD Provider: ANNIE ARGUETA T Test(s) ordered: BLOOD CULT (SET 1)............ completed: Feb 15, 2025 12:44 * BACTERIOLOGY FINAL REPORT => Feb 15, 2025 12:46 TECH CODE: [id number] Bacteriology Remark(s): 02/10/25 CMG CULTURE IS NEGATIVE TO DATE, ALL POSITIVES ARE ROUTINELY CALLED. Culture shows NO GROWTH IN 6 DAYS. 02/15/25 CED =--=--=--=--=--=--=--=--=--=- -=--=--=--=--=--=--=--=--=--= --=--=--=--=--=--=-- Performing Laboratory: Bacteriology Report Performed By: [id number] [place] [address] Bact Report Remark Performed By: [address]# [id number] [address] [place] [address] Feb 09, 2025 12:15 PM LR MICROBIOLOGY RE PORT: Accession [UID]: [id number] [[id number]] Received: Feb 09, 2025@12:29 Collection sample: B D BLD. BOTTLE (SET 2)Collection date: Feb 09, 2025 12:15 Site/Specimen: BLOOD Provider: ANNIE ARGUETA T Test(s) ordered: BLOOD CULT (SET 2)............ completed: Feb 15, 2025 12:45 * BACTERIOLOGY FINAL REPORT => Feb 15, 2025 12:46 TECH CODE: [id number] Bacteriology Remark(s): 02/10/25 CMG CULTURE IS NEGATIVE TO DATE, ALL POSITIVES ARE ROUTINELY CALLED. Culture shows NO GROWTH IN 6 DAYS. 02/15/25 CED =--=--=--=--=--=--=--=--=--=- -=--=--=--=--=--=--=--=--=--= --=--=--=--=--=--=-- Performing Laboratory: Bacteriology Report Performed By: [address] CLIA# [id number] [address] [place] [id number] Bact Report Remark Performed By: [address] CLIA# [id number] [address] Encounter Notes: All associated encounter notes This section contains the clinical notes associated to the Encounter. Date/Time Encounter Note(s) Provider Source Jan 28, 2025 05:13 PM ADDENDUM: LOCAL TITLE: Addendum STANDARD TITLE: ADDENDUM DATE OF NOTE: JAN 28, 2025@17:13:10 ENTRY DATE: JAN 28, 2025@17:13:11 AUTHOR: SUBHASH TERRAZAS COSIGNER: URGENCY: STATUS: COMPLETED Discharge Disposition Date of discharge: Jan Disposition Discharge to home Alerting PCP team to this note for continuity of care. Records r/t this episode of care sent for scanning, will be available within 24hrs. DC records sent securely to [facility]. Discharge Summary Records:SHARED SECURELY WITH PACT RN AND SENT TO [facility] Hospital/discharge Summary (per discharge note): Presented to the hospital for recurrent nausea vomiting. CT abdomen pelvis showed gallbladder wall thickening with a small amount of pericholecystic fat stranding. Acute cholecystitis is possible. HIDA scan was unremarkable and abdomen US showed mild gallbladder wall thickening with a dilated distal CBD. No acute surgical intervention required. GI notes that the nausea/ vomiting likely to be sequela of a prior gastroenteritis, causing upper GI dysmotility. Patient was cleared for discharge from both surgery and GI perspective. Incidentally the CT abdomen/pelvis also showed concentric thickening of the holley of the rectum. Differential includes incomplete rectal wall distention, proctitis or mass. Discussed with Dr. Sanders and patient to follow up outpatient for colonoscopy. Patient is to also follow up with GI in regards to his new cirrhosis diagnosis. Patient reported that he was having difficulty caring for himself at home due to intractable back pain that left him dependent on buying food that could be delivered as he could not prepare his own meals. He was initially interested in placement and PT/OT were both recommending SNF placement at time of discharge. Prior to patient being discharge he was adamant that he did not want placement for ongoing therapy. Patient is agreeable to home health. Patient discharged home with home health in a stable condition. He is to follow-up with his primary care provider in 1 week and the specialties as scheduled. Post-Discharge Needs 1) [facility] PCP follow up -F/U WITH PCP IN [address] the below recc consults per hosp DC if using VA insurance: -F/U WITH GI ([facility] or [facility] internal consults needed for ALL follow up care) /cas/ SUBHASH RUSS RN REGISTERED NURSE Signed: 01/28/2025 17:19 Receipt Acknowledged By: 01/29/2025 07:41 /cas/ ROB RUSS RN REGISTERED NURSE 01/28/2025 17:21 /cas/ CARLOS ESQUIVEL M.D. STAFF PHYSICIAN ECRS --- Original Document --- 01/20/25 [facility] SELF PRESENTING CARE COORD PLAN 657 STL: Emergency Notification Intake Date Presenting to the Facility: Dec Information Obtained Through: Notified from [facility] worklist Notification ID: [id number] [facility] Referral #: [id number] Clinical Review [facility] Hospital Name: Hospital: [facility] Address: [address] City: [place] State: [place] Zip Code: [address] [facility] Facility Point of Contact: Name: Negrita Llamas Chief Complaint: vomiting, diarrhea Primary Diagnosis: Disposition Unknown NO records available for this episode of care in [facility] or [place]. Faxed request for records to above hospital ########################## ########################## # Status: 1703 CLINICAL REVIEW COMMUNITY PROVIDER/PATIENT WILL NEED TO CONTACT [facility] FOR STATUS OR QUESTIONS ########################## ########################## ## /cas/ RIDDHI WONG [facility] GEOSPATIAL INFORMATION SCIENTIST Signed: 01/23/2025 06:03 Receipt Acknowledged By: 01/28/2025 17:13 /cas/ SUBHASH RUSS RN REGISTERED NURSE 01/25/2025 07:16 /es/ ROB RUSS RN REGISTERED NURSE 01/24/2025 12:28 /es/ CARLOS ESQUIVEL M.D. STAFF PHYSICIAN SUBHASH NORIEGA [facility] Jan 20, 2025 06:00 AM NONVA NOTE: LOCAL TITLE: [facility]F PRESENTING CARE COORD PLAN STANDARD TITLE: NONVA NOTE DATE OF NOTE: JAN 20, 2025@06:00 ENTRY DATE: JAN 23, 2025@06:01:04 AUTHOR: RIDDHI WONG EXP COSIGNER: URGENCY: STATUS: COMPLETED [facility] S[facility]F PRESENTING CARE COORD PLAN [address] Has ADDENDA Emergency Notification Intake Date Presenting to the Facility: Dec Information Obtained Through: Notified from ECR worklist Notification ID: [id number] [facility] Referral #: [id number] Clinical Review [facility] Hospital Name: Hospital: [facility] Address: [address] City: [place] State: [place] Zip Code: [address] Community Facility Point of Contact: Name: Negrita Llamas Chief Complaint: vomiting, diarrhea Primary Diagnosis: Disposition Unknown NO records available for this episode of care in JLV or Epic. Faxed request for records to above hospital ########################## ########################## # Status: 1703 CLINICAL REVIEW COMMUNITY PROVIDER/PATIENT WILL NEED TO CONTACT [facility] FOR STATUS OR QUESTIONS ########################## ########################## ## /cas/ RIDDHI WONG [facility] GEOSPATIAL INFORMATION SCIENTIST Signed: 01/23/2025 06:03 Receipt Acknowledged By: 01/28/2025 17:13 /es/ SUBHASH ZAPIENN RN REGISTERED NURSE 01/25/2025 07:16 /es/ ROB ZAPIENN RN REGISTERED NURSE 01/24/2025 12:28 /es/ CARLOS ESQUIVEL M.D. STAFF PHYSICIAN [facility] 01/28/2025 ADDENDUM STATUS: COMPLETED Discharge Disposition Date of discharge: Jan Disposition Discharge to home Alerting PCP team to this note for continuity of care. Records r/t this episode of care sent for scanning, will be available within 24hrs. DC records sent securely to [facility]. Discharge Summary Records:SHARED SECURELY WITH PACT RN AND SENT TO [facility] FOR SCANNING Hospital/discharge Summary (per discharge note): Presented to the hospital for recurrent nausea vomiting. CT abdomen pelvis showed gallbladder wall thickening with a small amount of pericholecystic fat stranding. Acute cholecystitis is possible. HIDA scan was unremarkable and abdomen US showed mild gallbladder wall thickening with a dilated distal CBD. No acute surgical intervention required. GI notes that the nausea/ vomiting likely to be sequela of a prior gastroenteritis, causing upper GI dysmotility. Patient was cleared for discharge from both surgery and GI perspective. Incidentally the CT abdomen/pelvis also showed concentric thickening of the holley of the rectum. Differential includes incomplete rectal wall distention, proctitis or mass. Discussed with Dr. Sanders and patient to follow up outpatient for colonoscopy. Patient is to also follow up with GI in regards to his new cirrhosis diagnosis. Patient reported that he was having difficulty caring for himself at home due to intractable back pain that left him dependent on buying food that could be delivered as he could not prepare his own meals. He was initially interested in placement and PT/OT were both recommending SNF placement at time of discharge. Prior to patient being discharge he was adamant that he did not want placement for ongoing therapy. Patient is agreeable to home health. Patient discharged home with home health in a stable condition. He is to follow-up with his primary care provider in 1 week and the specialties as scheduled. Post-Discharge Needs 1) [facility] follow up -F/U WITH PCP IN [address] the below recc consults per hosp DC if using VA insurance: -F/U WITH GI ([facility] or [facility] internal consults needed for ALL follow up care) /cas/ SUBHASH ZAPIENN RN REGISTERED NURSE Signed: 01/28/2025 17:19 Receipt Acknowledged By: * AWAITING SIGNATURE * ROB MENDOZA * AWAITING SIGNATURE * CARLOS ESQUIVEL PAULA C [facility]
--- OUTSIDE RECORDS SUMMARY | 2025-01-24 04:45 | XMS_ITS ---
Author Name [facility] Organization [facility] ([place]) Address [address] [place] [address] Care Team Providers Care Customer Data Technician Name Role Phone GRACE QUINN Primary Care [...] Medina's Name Patient's Relationship to Policy Medina [facility] MEDICARE SUPPLEMEN SHEILA PLANF Mar 25, 2016 [facility] [id number] [phone] ISMAELTESS JOSE MARIA PATIENT [facility] MEDICARE SUPPLEMEN SHEILA PLANF Oct 23, 2010 PLANF [id number] ISMAELTESS JOSE MARIA PATIENT [facility] MEDICARE SUPPLEMEN SHEILA PLANF Mar 25, 2016 PLANF [id number] JOSE MARIA WHITE AARP MED SUPP MEDICARE SUPPLEMEN TAL PLANF Oct 23, 2010 PLANF [id number] [phone] JOSE MARIA WHITE AARP [facility] (WNR) MEDICARE ADVANTAGE [facility] (WNR) July 24, 2023 [id number] [id number] [phone] JOSE MARIA WHITE PATIENT MEDICARE (WNR) MEDICARE (M) PART B July 24, 2003 PART B [id number] JOSE MARIA WHITE PATIENT MEDICARE (WNR) MEDICARE (M) PART A July 24, 2003 PART A [id number] [phone] JOSE MARIA WHITE PATIENT MEDICARE (WNR) MEDICARE (M) PART A July 24, 2003 PART A [id number] JOSE MARIA WHITE PATIENT [facility] (WNR) MEDICARE ADVANTAGE MCR (WNR) Mar 25, 2024 [id number] JOSE MARIA WHITE PATIENT [facility] (WNR) MEDICARE ADVANTAGE MCR (WNR) Mar 25, 2024 [id number] JOSE MARIA WHITE PATIENT Selected Encounter This section includes the information on record at [place] for the Encounter. Date/Time Encounter Type Encounter Description Reason Pro vider Source Jan 24, 2025 10:45 AM Outpatient Encounter ADMIN PAT ACTIVTIES (MASNONCT) IHE Encounter Template Text not used by [place] Plan of Treatment: Future Appointments (+ 6 months) and Future Tests (+/- 45 days) The Plan of Treatment section includes future care activities for the patient from all [place] treatmentfacilities. This section includes future appointments and future orders which are active, pending or scheduled. Future Appointments This section includes appointments that were scheduled to occur 6 months from the date of the Encounter, up to a maximum of 20 appointments. The data comes from all [place] treatment facilities. Appointment Date/Time Appointment Type Appointme nt Facility Name Jan 26, 2025 08:00 AM AMBULATORY - NONE [facility] Jan 26, 2025 02:00 PM AMBULATORY - REHAB MEDICIN E [facility] Feb 09, 2025 11:00 AM AMBULATORY - MEDICINE [facility] Feb 09, 2025 11:18 AM AMBULATORY - MEDICINE [facility] Feb 12, 2025 01:30 PM AMBULATORY - NONE [facility] Mar 15, 2025 01:30 PM AMBULATORY - NONE [facility] Mar 31, 2025 10:00 AM AMBULATORY - MEDICINE [facility] Mar 31, 2025 12:00 PM AMBULATORY - SURGERY [facility]ian [facility] Mar 31, 2025 02:30 PM AMBULATORY - MEDICINE [facility] Apr 09, 2025 11:00 AM AMBULATORY - MEDICINE [facility] May 03, 2025 03:00 PM AMBULATORY - NONE [facility] Active, Pending, and Scheduled Orders This section includes a listing of several types of active, pending, and scheduled orders, including clinic medications orders, diagnostic test orders, procedure orders and consult orders; where the start date of the order is 45 days before the date of the Encounter or 45 days after the date of theEncounter. The data comes from all [place] treatment facilities. 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 [facility] Cons Hotel Or Motel Room Service Supervisor's Choice [facility] Jan 15, 2025 12:00 AM Laboratory - Chemistry Order CELIAC DISEASE PANEL (STL-MRN) GOLD/RED SST SERUM SP ONCE [facility] Jan 15, 2025 12:00 AM Laboratory - Chemistry Order ANTI-NUCLEAR ANTIBODY (STL-PB) GOLD/RED SST SERUM SP [facility] Jan 15, 2025 12:00 AM Laboratory - Chemistry Order IRON/TIBC PROFILE GOLD/RED SST SERUM SP [facility] Jan 15, 2025 12:00 AM Laboratory - Chemistry Order ANTI-MITOCHONDRIAL AB (STL-PB) GOLD/RED SST SERUM SP [facility] Jan 15, 2025 12:00 AM Laboratory - Chemistry Order ACTIN (SMOOTHMUSCLE) ANTIBODY IGG GOLD/RED SST SERUM SP [facility] Jan 15, 2025 12:00 AM Laboratory - Chemistry Order HEP HB S Ag (AUSRIA) (STL) GOLD/RED SST SERUM [facility] Jan 15, 2025 12:00 AM Laboratory - Chemistry Order HEPATITIS B SURFACE AB PNL GOLD/RED SST SERUM SP [facility] Jan 15, 2025 12:00 AM Laboratory - Chemistry Order IGG (STL) GOLD/RED SST SERUM [facility] Jan 15, 2025 12:00 AM Laboratory - Chemistry Order HEPATITIS A IGG AB (STL) GOLD/RED SST SERUM [facility] Jan 15, 2025 12:00 AM Laboratory - Chemistry Order ALPHA-1 ANTITRYPSIN (STL-PB) GOLD/RED SST SERUM [facility] Jan 15, 2025 12:00 AM Laboratory - Chemistry Order HEP B CORE AB TOTAL. (STL) GOLD/RED SST SERUM [facility] Jan 15, 2025 12:00 AM Laboratory - Chemistry Order FERRITIN GOLD/RED SST SERUM [facility] Jan 15, 2025 12:00 AM Laboratory - Chemistry Order HEPATIC FUNTION PANEL (STL) GREEN LI/HEP BLD/PLAS PLASMA SP [facility] Jan 15, 2025 12:00 AM Laboratory - Chemistry Order HEP C Ab HCV Ab (STL) GOLD/RED SST SERUM [facility] Feb 09, 2025 12:18 PM Laboratory - Chemistry Order URINALYSIS W/ CX REFLEX (STL-PB) URN - CLEAN CATCH URINE WC ONCE [facility] Mar 01, 2025 12:00 AM Laboratory - Microbiology Order C&S URINE URINE HOLT WC ONCE [facility] Mar 01, 2025 12:00 AM Laboratory - Chemistry Order OCCULT BLOOD FIT X1 SCREEN STOOL FECES SP [facility] Mar 01, 2025 12:00 AM Laboratory - Chemistry Order ANTITHROMBIN III ACTIVITY BLUE,LIGHT(SODIUM CITRATE) PLASMA SP [facility] Mar 01, 2025 09:36 AM Consult Order EYE CLINIC OUTPT [facility] Cons Hotel Or Motel Room Service Supervisor's Choice [facility] Mar 01, 2025 09:36 AM Consult Order VASCULAR LAB OUTPT [facility] Cons Hotel Or Motel Room Service Supervisor's Choice [facility] Mar 01, 2025 09:36 AM Consult Order CARDIOLOGY OUTPT [facility] Cons Hotel Or Motel Room Service Supervisor's Choice [facility] Mar 08, 2025 12:00 PM Laboratory - Chemistry Order FACTOR V(LEIDEN)MUTATION ANALYSIS BLOOD SP [facility] Mar 09, 2025 12:00 AM Laboratory - Chemistry Order URINE DRUG SCREEN (STL) URINE YELLOW SP [facility] Lab Results: +/- 30 days of the [...] Type Comment Feb 10, 2025 12:51 PM [facility] GLUCOSE,BLOOD-poct (STL) BLOOD Specimen Type: BLOOD Comment: Test Performed by: [id number] Meter #: [id number] Ordering Provider: RAMOSCloudwise Report Released Date/Time: Feb 10, 2025 12:53 PM Reporting Lab: [address] [address] Performing Lab: [address] [address] GLUCOSE,BLOOD-poct (STL) 199 mg/dL H 72-99 Feb 10, 2025 05:13 AM [facility] GLUCOSE,BLOOD-poct (STL) BLOOD Specimen Type: BLOOD Comment: Test Performed by: [id number] Meter #: [id number] Ordering Provider: Nethra ImagingKittyCloudwise Report Released Date/Time: Feb 10, 2025 05:37 AM Reporting Lab: [address] [address] Performing Lab: [address] [address] GLUCOSE,BLOOD-poct (STL) 95 mg/dL 72-99 Feb 09, 2025 11:20 PM [facility] APTT PLASMA Specimen Type: PLASM A Comment: ~HEP BOLUS - CALL RESULTS Ordering Provider: JESSE BURGOS Report Released Date/Time: Feb 09, 2025 04:35 PM Reporting Lab: [place] [address] [facility] [address] Performing Lab: [address] [address] APTT 29.9 s 26.7-39.9 Feb 09, 2025 08:35 PM [facility] GLUCOSE,BLOOD-poct (STL) BLOOD Specimen Type: BLOOD Comment: Test Performed by: [id number] Meter #: [id number] Ordering Provider: ANN BEASLEY Report Released Date/Time: Feb 09, 2025 08:41 PM Reporting Lab: [address] [address] Performing Lab: [address] [address] GLUCOSE,BLOOD-poct (STL) 159 mg/dL H 72-99 Feb 09, 2025 05:22 PM [facility] MRSA SURVL NARES DNA NARES Specimen [...] Feb 09, 2025 04:31 PM Reporting Lab: [address] [address] Performing Lab: [address] [address] MRSA SURVL NARES DNA Negative Negative Feb 09, 2025 05:00 PM [facility] APTT PLASMA Specimen Type: PLASM A Comment: ~HEP BOLUS-CALL RESULTS Ordering Provider: JESSE BURGOS Report Released Date/Time: Feb 09, 2025 04:35 PM Reporting Lab: [place] [address] [facility] [address] Performing Lab: [place] [address] [facility] [address] APTT 28.0 s 26.7-39.9 Feb 09, 2025 04:59 PM [facility] GLUCOSE,BLOOD-poct (STL) BLOOD Specimen Type: BLOOD Comment: Test Performed by: [id number] Meter #: [id number] Ordering Provider: ANN BEASLEY Report Released Date/Time: Feb 09, 2025 05:02 PM Reporting Lab: [place] [address] [facility] [address] Performing Lab: [place] [address] [facility] [address] GLUCOSE,BLOOD-poct (STL) 162 mg/dL H 72-99 Feb 09, 2025 01:55 PM [facility] LACTIC ACID (STL-PB) PLASMA Specimen Type: TAMARA SMA No comment entered. Ordering Provider: CHINO LEONG I Report Released Date/Time: Feb 09, 2025 01:44 PM Reporting Lab: [place] [address] [facility] [address] Performing Lab: [address] [address] LACTIC ACID (STL-PB) 2.9 mmol/L H 0.5-2.0 Feb 09, 2025 11:52 AM [facility] BLOOD GAS PANEL ABG (STL) VENOUS BLOOD Specimen Type : VENOUS BLOOD Comment: Test Performed by: [id number] Meter #: [id number] Ordering Provider: ANNIE ARGUETA Report Released Date/Time: Feb 09, 2025 11:53 AM Reporting Lab: [place] [address] [facility] [address] Performing Lab: [address] [address] GEM PH 7.40 7.31-7.41 GEM PCO2 36 [...] TEMP 37.0 Feb 09, 2025 11:51 AM [facility] BRAIN NATRIURETIC PEPTIDE PLASMA Specimen Type : PLASMA No comment entered. Ordering Provider: CHINO LEONG I Report Released Date/Time: Feb 09, 2025 01:19 PM Reporting Lab: [address] [address] Performing Lab: [address] [address] BRAIN NATRIURETIC PEPTIDE 341.6 pg/mL H 0- 100 Feb 09, 2025 11:31 AM [facility] TROPONIN I (STL) PLASMA Specimen Type: PLASM A Comment: No hemolysis noted. Ordering Provider: KESHIA HUYNH Report Released Date/Time: Feb 09, 2025 11:30 AM Reporting Lab: [address] [address] Performing Lab: [address] [address] TROPONIN I (STL) 0.019 ng/mL 0-0.033 Feb 09, 2025 11:31 AM [facility] COMPREHENSIVE METABOLIC PANEL PLASMA Specimen Type: PLASMA Comment: No hemolysis noted. Ordering Provider: KESHIA HUYNH Report Released Date/Time: Feb 09, 2025 11:30 AM Reporting Lab: [address] [address] Performing Lab: [address] [address] CREATININE 0.96 mg/dL 0.7-1.3 UREA NITROGEN 16.8 [...] 80.4 >60 Feb 09, 2025 11:[address] [facility] CBC BLOOD Specimen Type: BLOOD No comment entered. Ordering Provider: KESHIA HUYNH Report Released Date/Time: Feb 09, 2025 11:30 AM Reporting Lab: [facility] [address] [place] [address] Performing Lab: [address] [address] WBC 5.6 10*3/uL 3.6-11.2 RBC 3.71 10*6/uL [...] 0.00-0. 20 Feb 09, 2025 11:20 AM [facility] GLUCOSE,BLOOD-poct (STL) BLOOD Specimen Type: BLOOD Comment: Test Performed by: [id number] Meter #: [id number] Ordering Provider: ANNIE ARGUETA Report Released Date/Time: Feb 09, 2025 11:22 AM Reporting Lab: [facility] [address] [facility] [address] Performing Lab: [place] [address] [facility] [address] GLUCOSE,BLOOD-poct (STL) 161 mg/dL H 72-99 Social History: Smoking Status (Most current) and Tobacco Use (All prior to encounter date) This section includes the most current, and the historical, smoking and tobacco- related health factors from the [place] facility where the Encounter took place. Current Smoking Status This section includes the most current smoking, or tobacco-related health factor, from the [place] facility where the Encounter took place. Date/Time Current Smoking Status Comment Vanessa wrighty Jun 10, 2024 11:21 AM [place]-TOBACCO NEVER U SED OTHER TYPE [facility] Tobacco Use History This section includes a history of the smoking, or tobacco-related health factors, that were collected on or before the date of the Encounter. The data comes from the [place] facility where the Encounter took place. Date/Time Smoking Status/Tobacco Use Comment F acility Jun 10, 2024 11:21 AM [place]-TOBACCO USE FOR HANK CIGARET[facility] Radiology Reports: +/- 30 days [...] the Encounter. The data comes from all [place] treatment facilities. Date/Time Radiology Report Provider Source Feb 10, 2025 11:29 AM US EXTREMITY VEINS BILAT (DVT): JOSE MARIA WHITE [id number] -1945 M Exm Date: FEB 10, 2025@11:29 Req Phys: JESSE BURGOS Pat Loc: 6N S OE-[facility]/02-10-2025@13:14 Img Loc: [facility]-ULTRASOUND [facility] Service: [id number] SERVICE [address] [address] (Case [id number] COMPLETE) US EXTREMITY VEINS BILAT (DVT) (US Detailed) CPT:54530 Reason for Study: dx with PE Clinical History: Report Status: Verified Date Reported: FEB 10, 2025 Date Verified: FEB 10, 2025 Sort Manager E-Sig:/ES/David Pastrana MD Report: CASE #: [id number] DATE:02/10/2025 12:51 PM CLINICAL HISTORY:dx with PE [...] verification. Dictated by Chastity Mantilla M.D. (Diagnostic Veterinary Radiologist). I, David Pastrana, have reviewed the images and report and concur with these findings. Primary Interpreting Staff: David Pastrana MD, Radiologist (Sort Manager) Primary Interpreting Resident: Chastity Mantilla MD, Resident Physician /DAVID WILCOX [facility] Feb 09, 2025 03:[address] PE CHEST W/3D: JOSE MARIA WHITE RODRIGUE [id number] -1945 M Exm Date: FEB 09, 2025@15:10 Req Phys: CHINO LEONG I Pat Loc: 6N S OE-[facility]/02-09-2025@16:39 Img Loc: [facility]-CT IMAGING [facility] Service: [address] [address] (Case [id number] COMPLETE) CT THORAX W/CONT (PE) (CT Detailed) CPT:19301 Contrast Media : unspecified contrast media Reason for Study: syncope, abormanl CXR Clinical History: Responsible Attending: Mariam Attending Contact Number: [phone] Resident Contact Number: syncope, abormanl CXR Allergies listed in CPRS chart: PENICILLIN, TETRACYCLINE, NEOSPORIN, CELEBREX, SIMVASTATIN Creatinine: CREATININE 0.96 mg/dL 02/09/2025 11:31 /eGFR: STL EGFR (within one year). CREATININE 0.96 mg/dL (02/09/25 11:31) Wt: 273.5 lb [124.06 kg] (09/10/2023 13:16) History of: Renal failure, chronic or acute renal disease: NO Report Status: Verified Date Reported: FEB 09, 2025 Date Verified: FEB 09, 2025 Sort Manager E-Sig:/ES/REA MARLEY Report: CASE #: [id number] DATE:02/09/2025 4:08 PM CLINICAL HISTORY:syncope, abormanl CXR [...] confirmation. Dictated by Jamal Chiu M.D. (Diagnostic Veterinary Radiologist). I, Rea Marley, have reviewed the images and report and concur with these findings. Primary Interpreting Staff: REA MARLEY, Staff Physician (Sort Manager) Primary Interpreting Resident: JAMAL CHIU, Resident Physician /[facility] Feb 09, 2025 01:[address] HEAD W/O CONT: JOSE MARIA WHITE [id number] -1945 M Exm Date: FEB 09, 2025@13:01 Req Phys: CHINO LEONG Loc: [facility]-EMERGENCY DEPT 2ND SHIFT (R Img Loc: [facility]-CT IMAGING [facility] Service: Unknown [facility], [facility] [address] [place] [address] (Case [id number] COMPLETE) CT HEAD W/O CONT (CT Detailed) CPT:52857 Reason for Study: syncopal episode Clinical History: Responsible Attending: Mariam Attending Contact Number: [phone] Resident Contact Number: syncopal episode Allergies listed in CPRS chart: PENICILLIN, TETRACYCLINE, NEOSPORIN, CELEBREX, SIMVASTATIN Creatinine: CREATININE 0.90 mg/dL 08/07/2024 14:00 /eGFR: STL EGFR (within one year). CREATININE 0.90 mg/dL (08/07/24 14:00) Wt: 273.5 lb [124.06 kg] (09/10/2023 13:16) History of: Renal failure, chronic or acute renal disease: NO Report Status: Verified Date Reported: FEB 09, 2025 Date Verified: FEB 09, 2025 Sort Manager E-Sig:/ES/REA MARLEY Report: CASE #: [id number] DATE:02/09/2025 1:35 PM CLINICAL HISTORY:syncopal episode TECHNIQUE: [...] process. Dictated by Jamal Chiu M.D. (Diagnostic Veterinary Radiologist). I, Rea Marley, have reviewed the images and report and concur with these findings. Primary Interpreting Staff: REA MARLEY, Staff Physician (Sort Manager) Primary Interpreting Resident: JAMAL CHIU, Physician /REA HOPE [facility] Feb 09, 2025 11:32 AM CHEST PORTABLE: JOSE MARIA WHITE [id number] -1945 M Exm Date: FEB 09, 2025@11:32 Req Phys: KESHIA HUYNH Pat Loc: [facility]-EMERGENCY DEPT 2ND SHIFT (R Img Loc: [facility]-MAIN RADIOLOGY SUITE Service: Unknown [facility], [facility] [address] [place] [address] (Case [id number] COMPLETE) CHEST PORTABLE (RAD Detailed) CPT:14149 Proc Modifiers : Portable Reason for Study: hypotension Clinical History: Report Status: Verified Date Reported: FEB 09, 2025 Date Verified: FEB 09, 2025 Sort Manager E-Sig:/ES/David Pastrana MD Report: CASE [id number]. AP portable view chest. COMPARISON: FINDINGS: Bilateral [...] effusion. Dictated by Jamal Chiu M.D. (Diagnostic Veterinary Radiologist). I, David Pastrana, have reviewed the images and report and concur with these findings. Primary Interpreting Staff: David Pastrana MD, Radiologist (Sort Manager) Primary Interpreting Resident: Resident HAL Physician /DAVID WADE [facility] Pathology Reports: +/- 30 days of [...] the Encounter. The data comes from all [place] treatment facilities. Date/Time Pathology Report Provider Source Feb 09, 2025 12:20 PM LR MICROBIOLOGY RE PORT: Accession [UID]: [id number] [[id number]] Received: Feb 09, 2025@12:29 Collection sample: B D BLD. BOTTLE Collection date: Feb 09, 2025 12:20 Site/Specimen: BLOOD Provider: ANNIE ARGUETA T Test(s) ordered: BLOOD CULT (SET 1)............ completed: Feb 15, 2025 12:44 * BACTERIOLOGY FINAL REPORT => Feb 15, 2025 12:46 TECH CODE: [id number] Bacteriology Remark(s): 02/10/25 CMG CULTURE IS NEGATIVE TO DATE, ALL POSITIVES ARE ROUTINELY CALLED. Culture shows NO GROWTH IN 6 DAYS. 02/15/25 CED =--=--=--=--=--=--=--=--=--=- -=--=--=--=--=--=--=--=--=--= --=--=--=--=--=--=-- Performing Laboratory: Bacteriology Report Performed By: [address] CLIA# [id number] [address] [place] [address] Bact Report Remark Performed By: [address] CLIA# [id number] [address] [place] [address] Feb 09, 2025 12:15 PM LR MICROBIOLOGY RE PORT: Accession [UID]: [id number] [[id number]] Received: Feb 09, 2025@12:29 Collection sample: B D BLD. BOTTLE (SET 2)Collection date: Feb 09, 2025 12:15 Site/Specimen: BLOOD Provider: ANNIE ARGUETA T Test(s) ordered: BLOOD CULT (SET 2)............ completed: Feb 15, 2025 12:45 * BACTERIOLOGY FINAL REPORT => Feb 15, 2025 12:46 TECH CODE: [id number] Bacteriology Remark(s): 02/10/25 CMG CULTURE IS NEGATIVE TO DATE, ALL POSITIVES ARE ROUTINELY CALLED. Culture shows NO GROWTH IN 6 DAYS. 02/15/25 CED =--=--=--=--=--=--=--=--=--=- -=--=--=--=--=--=--=--=--=--= --=--=--=--=--=--=-- Performing Laboratory: Bacteriology Report [facility] By[facility] [id number] [address] [place], [place] [id number] Bact Report Remark Performed By: [facility] [id number] [address] [place] [address] Encounter Notes: All associated encounter notes This section contains the clinical notes associated to the Encounter. Date/Time Encounter Note(s) Provider Source Jan 24, 2025 10:45 AM ADMINISTRATIVE NOT E: LOCAL TITLE: CCC: SCHEDULING ADMINISTRATION STANDARD TITLE: ADMINISTRATIVE NOTE DATE OF NOTE: JAN 24, 2025@10:45 ENTRY DATE: JAN 24, 2025@10:45:35 AUTHOR: LUDA MARTEL EXP COSIGNER: URGENCY: STATUS: COMPLETED was scheduled today with the jose eduardo Manuel STAFFING ASSISTANT at 1:00pm by phone appt. /cas/ LUDA MARTEL Signed: 01/24/2025 10:46 LUDA MARTEL [facility]
--- OUTSIDE RECORDS SUMMARY | 2025-01-26 23:49 | XMS_ITS | Encounter Summary ---
Author Name [facility] ([place]) Organization [facility] ([place]) Address [address] [place] [address] Care Team Providers Care Leather Coverer Name Role Phone GRACE QUINN Primary Care [...] Name Patient's Relationship to Policy [facility] MEDICARE SUPPLEMEN SHEILA PLANF Mar 25, 2016 PLAN [id number] [phone] ISMAELTESS JOSE MARIA PATIENT [facility] MEDICARE SUPPLEMEN SHEILA PLANF Oct 23, 2010 PLANF [id number] JOSE MARIA WHITE PATIENT [facility] MEDICARE SUPPLEMEN SHEILA PLANF Mar 25, 2016 PLANF [id number] JOSE MARIA WHITEP MED SUPP MEDICARE SUPPLEMEN SHEILA PLANF Oct 23, 2010 PLANF [id number] [phone] JOSE MARIA WHITEP [facility] (WNR) MEDICARE ADVANTAGE [facility] (WNR) July 24, 2023 [id number] JOSE MARIA WHITE PATIENT MEDICARE (WNR) MEDICARE (M) PART B July 24, 2003 PART B [id number] [phone] JOSE MARIA WHITE PATIENT MEDICARE (WNR) MEDICARE (M) PART A July 24, 2003 PART A [id number] [phone] JOSE MARIA WHITE PATIENT MEDICARE (WNR) MEDICARE (M) PART A July 24, 2003 PART A [id number] JOSE MARIA WHITE PATIENT [facility] (WNR) MEDICARE ADVANTAGE [facility] (WNR) Mar 25, 2024 [id number] JOSE MARIA WHITE [facility] (WNR) MEDICARE ADVANTAGE [facility] (WNR) Mar 25, 2024 [id number] [phone] JOSE MARIA WHITE PATIENT Selected Encounter This section includes the information on record at [place] for the Encounter. Date/Time Encounter Type Encounter Description Reason Provider Source Jan 27, 2025 05:49 AM Outpatient Encounter GENERAL INTERNAL MEDICINE CARLOS ESQUIVEL Encounter Template Text not used by [place] Plan of Treatment: Future Appointments (+ 6 months) and Future Tests (+/- 45 days) The Plan of Treatment section includes future care activities for the patient from all [place] treatmentfacilities. This section includes future appointments and future orders which are active, pending or scheduled. Future Appointments This section includes appointments that were scheduled to occur 6 months from the date of the Encounter, up to a maximum of 20 appointments. The data comes from all [place] treatment facilities. Appointment Date/Time Appointment Type Appointme nt Facility Name Feb 09, 2025 11:00 AM AMBULATORY - MEDICINE [facility] Feb 09, 2025 11:18 AM AMBULATORY - MEDICINE [facility] Feb 12, 2025 01:30 PM AMBULATORY - NONE [facility] Mar 15, 2025 01:30 PM AMBULATORY - NONE [facility] STEPHANIE Sauceda [facility] Mar 31, 2025 10:00 AM AMBULATORY - MEDICINE [facility] Mar 31, 2025 12:00 PM AMBULATORY - SURGERY Kacey STRAUSS [facility] Mar 31, 2025 02:30 PM AMBULATORY - MEDICINE [facility] Apr 09, 2025 11:00 AM AMBULATORY - MEDICINE [facility] May 03, 2025 03:00 PM AMBULATORY - NONE [facility] Active, Pending, and Scheduled Orders This section includes a listing of several types of active, pending, and scheduled orders, including clinic medications orders, diagnostic test orders, procedure orders and consult orders; where the start date of the order is 45 days before the date of the Encounter or 45 days after the date of theEncounter. The data comes from all [place] treatment facilities. 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 STL Cons Case Technician's Choice [facility] Jan 15, 2025 12:00 AM Laboratory - Chemistry Order CELIAC DISEASE PANEL (STL-MRN) GOLD/RED SST SERUM SP ONCE [facility] Jan 15, 2025 12:00 AM Laboratory - Chemistry Order IRON/TIBC PROFILE GOLD/RED SST SERUM SP [facility] Jan 15, 2025 12:00 AM Laboratory - Chemistry Order ANTI-MITOCHONDRIAL AB (STL-PB) GOLD/RED SST SERUM SP [facility] Jan 15, 2025 12:00 AM Laboratory - Chemistry Order ANTI-NUCLEAR ANTIBODY (STL-PB) GOLD/RED SST SERUM SP [facility] Jan 15, 2025 12:00 AM Laboratory - Chemistry Order ACTIN (SMOOTHMUSCLE) ANTIBODY IGG GOLD/RED SST SERUM [facility] Jan 15, 2025 12:00 AM Laboratory - Chemistry Order IGG (STL) GOLD/RED SST SERUM SP [facility] Jan 15, 2025 12:00 AM Laboratory - Chemistry Order HEP HB S Ag (AUSRIA) (STL) GOLD/RED SST SERUM SP [facility] Jan 15, 2025 12:00 AM Laboratory - Chemistry Order HEPATITIS B SURFACE AB PNL GOLD/RED SST SERUM SP [facility] Jan 15, 2025 12:00 AM Laboratory - Chemistry Order HEP B CORE AB TOTAL. (STL) GOLD/RED SST SERUM [facility] Jan 15, 2025 12:00 AM Laboratory - Chemistry Order HEPATITIS A IGG AB (STL) GOLD/RED SST SERUM SP [facility] Jan 15, 2025 12:00 AM Laboratory - Chemistry Order ALPHA-1 ANTITRYPSIN (STL-PB) GOLD/RED SST SERUM [facility] Jan 15, 2025 12:00 AM Laboratory - Chemistry Order FERRITIN GOLD/RED SST SERUM [facility] Jan 15, 2025 12:00 AM Laboratory - Chemistry Order HEPATIC FUNTION PANEL (STL) GREEN LI/HEP BLD/PLAS PLASMA SP [facility] Jan 15, 2025 12:00 AM Laboratory - Chemistry Order HEP C Ab HCV Ab (STL) GOLD/RED SST SERUM [facility] Feb 09, 2025 12:18 PM Laboratory - Chemistry Order URINALYSIS W/ CX REFLEX (STL-PB) URN - CLEAN CATCH URINE WC ONCE [facility] Mar 01, 2025 12:00 AM Laboratory - Chemistry Order OCCULT BLOOD FIT X1 SCREEN STOOL FECES SP [facility] Mar 01, 2025 12:00 AM Laboratory - Microbiology Order C&S URINE URINE HOLT WC ONCE [facility] Mar 01, 2025 12:00 AM Laboratory - Chemistry Order ANTITHROMBIN III ACTIVITY BLUE,LIGHT(SODIUM CITRATE) PLASMA [facility] Mar 01, 2025 09:36 AM Consult Order EYE CLINIC OUTPT JESSICA Cons Case Technician's Choice [facility] Mar 01, 2025 09:36 AM Consult Order VASCULAR LAB OUTPT STL Cons Case Technician's Choice [facility] Mar 01, 2025 09:36 AM Consult Order CARDIOLOGY OUTPT JESSICA Cons Case Technician's Choice [facility] Mar 08, 2025 12:00 PM Laboratory - Chemistry Order FACTOR V(LEIDEN)MUTATION ANALYSIS BLOOD SP [facility] Mar 09, 2025 12:00 AM Laboratory - Chemistry Order URINE DRUG SCREEN (STL) URINE YELLOW SP [facility] Lab Results: +/- 30 days of [...] Type Comment Feb 10, 2025 12:51 PM [facility] GLUCOSE,BLOOD-poct (STL) BLOOD Specimen Type: BLOOD Comment: Test Performed by: [id number] Meter #: [id number] Ordering Provider: ANN BEASLEY Report Released Date/Time: Feb 10, 2025 12:53 PM Reporting Lab: [place] [address] [facility] [address] Performing Lab: [place] [address] [facility] [address] GLUCOSE,BLOOD-poct (STL) 199 mg/dL H 72-99 Feb 10, 2025 05:13 AM [facility] GLUCOSE,BLOOD-poct (STL) BLOOD Specimen Type: BLOOD Comment: Test Performed by: [id number] Meter #: [id number] Ordering Provider: ANN BEASLEY Report Released Date/Time: Feb 10, 2025 05:37 AM Reporting Lab: [place] [address] [facility] [address] Performing Lab: [place] [address] [facility] [address] GLUCOSE,BLOOD-poct (STL) 95 mg/dL 72-99 Feb 09, 2025 11:20 PM [facility] APTT PLASMA Specimen Type: PLASM A Comment: ~HEP BOLUS - CALL RESULTS Ordering Provider: JESSE BURGOS Report Released Date/Time: Feb 09, 2025 04:35 PM Reporting Lab: [place] [address] [address] [facility] [address] Performing Lab: [place] [address] [facility] [address] APTT 29.9 s 26.7-39.9 Feb 09, 2025 08:35 PM [facility] GLUCOSE,BLOOD-poct (STL) BLOOD Specimen Type: BLOOD Comment: Test Performed by: [id number] Meter #: [id number] Ordering Provider: ANN BEASLEY Report Released Date/Time: Feb 09, 2025 08:41 PM Reporting Lab: [place] [address] [facility] [address] Performing Lab: [place] [address] [facility] [address] GLUCOSE,BLOOD-poct (L) 159 mg/dL H 72-99 Feb 09, 2025 05:22 PM [facility] MRSA SURVL NARES DNA NARES Specimen Type: [...] Feb 09, 2025 04:31 PM Reporting Lab: [place] [address] [address] [facility] [address] Performing Lab: [address] [address] MRSA SURVL NARES DNA Negative Negative Feb 09, 2025 05:00 PM [facility] APTT PLASMA Specimen Type: PLASM A Comment: ~HEP BOLUS-CALL RESULTS Ordering Provider: JESSE BURGOS Report Released Date/Time: Feb 09, 2025 04:35 PM Reporting Lab: [place] [address] [facility] [address] Performing Lab: [place] [address] [facility] [address] APTT 28.0 s 26.7-39.9 Feb 09, 2025 04:59 PM [facility] GLUCOSE,BLOOD-poct (STL) BLOOD Specimen Type: BLOOD Comment: Test Performed by: [id number] Meter #: [id number] Ordering Provider: ANN BEASLEY Report Released Date/Time: Feb 09, 2025 05:02 PM Reporting Lab: [place] [address] [facility] [address] Performing Lab: [address] [address] GLUCOSE,BLOOD-poct (L) 162 mg/dL H 72-99 Feb 09, 2025 01:55 PM [facility] LACTIC ACID (L-PB) PLASMA Specimen Type: TAMARA SMA No comment entered. Ordering Provider: CHINO LEONG I Report Released Date/Time: Feb 09, 2025 01:44 PM Reporting Lab: [address] [address] Performing Lab: [address] [address] LACTIC ACID (STL-PB) 2.9 mmol/L H 0.5-2.0 Feb 09, 2025 11:52 AM [facility] BLOOD GAS PANEL ABG (L) VENOUS BLOOD Specimen Type : VENOUS BLOOD Comment: Test Performed by: [id number] Meter #: [id number] Ordering Provider: ANNIE ARGUETA Report Released Date/Time: Feb 09, 2025 11:53 AM Reporting Lab: [place] [address] [facility] [address] Performing Lab: [place] [address] [facility] [address] GEM PH 7.40 7.31-7.41 GEM PCO2 36 [...] TEMP 37.0 Feb 09, 2025 11:51 AM [facility] BRAIN NATRIURETIC PEPTIDE PLASMA Specimen Type : PLASMA No comment entered. Ordering Provider: CHINO LEONG I Report Released Date/Time: Feb 09, 2025 01:19 PM Reporting Lab: [address] [address] Performing Lab: [address] [address] BRAIN NATRIURETIC PEPTIDE 341.6 pg/mL H 0- 100 Feb 09, 2025 11:31 AM [facility] TROPONIN I (STL) PLASMA Specimen Type: PLASM A Comment: No hemolysis noted. Ordering Provider: KESHIA HUYNH Report Released Date/Time: Feb 09, 2025 11:30 AM Reporting Lab: [address] [address] Performing Lab: [address] [address] TROPONIN I (STL) 0.019 ng/mL 0-0.033 Feb 09, 2025 11:31 AM [facility] COMPREHENSIVE METABOLIC PANEL PLASMA Specimen Type: PLASMA Comment: No hemolysis noted. Ordering Provider: KESHIA HUYNH Report Released Date/Time: Feb 09, 2025 11:30 AM Reporting Lab: [address] [address] Performing Lab: [address] [address] CREATININE 0.96 mg/dL 0.7-1.3 UREA NITROGEN 16.8 [...] 80.4 >60 Feb 09, 2025 11:31 AM [facility] CBC BLOOD Specimen Type: BLOOD No comment entered. Ordering Provider: KESHIA HUYNH Report Released Date/Time: Feb 09, 2025 11:30 AM Reporting Lab: [facility] [address] [place] [address] Performing Lab: [address] [address] WBC 5.6 10*3/uL 3.6-11.2 RBC 3.71 10*6/uL [...] 0.00-0. 20 Feb 09, 2025 11:20 AM [facility] GLUCOSE,BLOOD-poct (STL) BLOOD Specimen Type: BLOOD Comment: Test Performed by: [id number] Meter #: [id number] Ordering Provider: ANNIE ARGUETA Report Released Date/Time: Feb 09, 2025 11:22 AM Reporting Lab: [facility] [address] [facility] [address] Performing Lab: [place] [address] [facility] [address] GLUCOSE,BLOOD-poct (STL) 161 mg/dL H 72-99 Social History: Smoking Status (Most current) and Tobacco Use (All prior to encounter date) This section includes the most current, and the historical, smoking and tobacco- related health factors from the [place] facility where the Encounter took place. Current Smoking Status This section includes the most current smoking, or tobacco-related health factor, from the [place] facility where the Encounter took place. Date/Time Current Smoking Status Comment Vanessa eaton Jun 10, 2024 11:21 AM VA-TOBACCO USE FOR HANK [employer] - Payments Anytime | Anywhere [facility] Tobacco Use History This section includes a history of the smoking, or tobacco-related health factors, that were collected on or before the date of the Encounter. The data comes from the [place] facility where the Encounter took place. Date/Time Smoking Status/Tobacco Use Comment F jose Jun 10, 2024 11:21 AM VA-TOBACCO USE FOR HANK CIGARETTES [facility] Radiology Reports: +/- 30 days of the [...] the Encounter. The data comes from all [place] treatment facilities. Date/Time Radiology Report Provider Source Feb 10, 2025 11:29 AM US EXTREMITY VEINS BILAT (DVT): JOSE MARIA WHITE [id number] -1945 M Exm Date: FEB 10, 2025@11:29 Req Phys: JESSE BURGOS Julio Cesar Pat Loc: 6N S OE-JESSICA/02-10-2025@13:14 Img Loc: JESSICA-ULTRASOUND JESSICA Service: [facility] [address] [address] (Case [id number] COMPLETE) US EXTREMITY VEINS BILAT (DVT) (US Detailed) CPT:08277 Reason for Study: dx with PE Clinical History: Report Status: Verified Date Reported: FEB 10, 2025 Date Verified: FEB 10, 2025 Program Instructor E-Sig:/ES/David Pastrana MD Report: CASE #: [id number] DATE:02/10/2025 12:51 PM CLINICAL HISTORY:dx with PE [...] verification. Dictated by Chastity Mantilla M.D. (Diagnostic Radiator Repairer). I, David Pastrana, have reviewed the images and report and concur with these findings. Primary Interpreting Staff: David Pastrana MD, Radiologist (Program Instructor) Primary Interpreting Resident: Chastity Mantilla MD, Resident Physician /DAVID WILCOX [facility] Feb 09, 2025 03:[address] PE CHEST W/3D: JOSE MARIA WHITE [id number] -1945 M Exm Date: FEB 09, 2025@15:10 Req Phys: CHINO LEONG I Pat Loc: 6N S -JESSICA/02-09-2025@16:39 Img Loc: JESSICA-CT IMAGING JESSICA Service: [address] [address] (Case [id number] COMPLETE) CT THORAX W/CONT (PE) (CT Detailed) CPT:33338 Contrast Media : unspecified contrast media Reason for Study: syncope, abormanl CXR Clinical History: Responsible Attending: Mariam Attending Contact Number: [phone] Resident Contact Number: syncope, abormanl CXR Allergies listed in CPRS chart: PENICILLIN, TETRACYCLINE, NEOSPORIN, CELEBREX, SIMVASTATIN Creatinine: CREATININE 0.96 mg/dL 02/09/2025 11:31 /eGFR: STL EGFR (within one year). CREATININE 0.96 mg/dL (02/09/25 11:31) Wt: 273.5 lb [124.06 kg] (09/10/2023 13:16) History of: Renal failure, chronic or acute renal disease: NO Report Status: Verified Date Reported: FEB 09, 2025 Date Verified: FEB 09, 2025 Program Instructor E-Sig:/ES/REA MARLEY Report: CASE #: [id number] DATE:02/09/2025 4:08 PM CLINICAL HISTORY:syncope, abormanl CXR [...] confirmation. Dictated by Jamal Chiu M.D. (Diagnostic Radiator Repairer). I, Rea Marley, have reviewed the images and report and concur with these findings. Primary Interpreting Staff: REA MARLEY, Staff Physician (Program Instructor) Primary Interpreting Resident: JAMAL CHIU Resident Physician /REA HOPE [facility] Feb 09, 2025 01:[address] HEAD W/O CONT: ISMAELSANARAJIJOSE MARIA HUSAIN [id number] -1945 Ex Date: FEB 09, 2025@13:01 Req Phys: CHINO LEONG Loc: JESSICA-EMERGENCY DEPT 2ND SHIFT (R Img Loc: JESSICA-CT IMAGING JESSICA Service: Unknown [facility], [address] [address] (Case [id number] COMPLETE) CT HEAD W/O CONT (CT Detailed) CPT:84869 Reason for Study: syncopal episode Clinical History: Responsible Attending: Mariam Attending Contact Number: [phone] Resident Contact Number: syncopal episode Allergies listed in CPRS chart: PENICILLIN, TETRACYCLINE, NEOSPORIN, CELEBREX, SIMVASTATIN Creatinine: CREATININE 0.90 mg/dL 08/07/2024 14:00 /eGFR: STL EGFR (within one year). CREATININE 0.90 mg/dL (08/07/24 14:00) Wt: 273.5 lb [124.06 kg] (09/10/2023 13:16) History of: Renal failure, chronic or acute renal disease: NO Report Status: Verified Date Reported: FEB 09, 2025 Date Verified: FEB 09, 2025 Program Instructor E-Sig:/ES/REA MARLEY Report: CASE #: [id number] DATE:02/09/2025 1:35 PM CLINICAL HISTORY:syncopal episode TECHNIQUE: [...] process. Dictated by Jamal Chiu M.D. (Diagnostic Radiator Repairer). I, Rea Marley, have reviewed the images and report and concur with these findings. Primary Interpreting Staff: REA MARLEY, Staff Physician (Program Instructor) Primary Interpreting Resident: JAMAL CHIU, Resident Physician /REA HOPE [facility] Feb 09, 2025 11:32 AM CHEST PORTABLE: ISMAELSANARAJIJOSE MARIA [id number] -1945 M Exm Date: FEB 09, 2025@11:32 Req Phys: KESHIA HUYNH Loc: JESSICA-EMERGENCY DEPT 2ND SHIFT (R Img Loc: JESSICA-MAIN RADIOLOGY SUITE Service: Unknown [facility], [address] [place] [address] (Case [id number] COMPLETE) CHEST PORTABLE (RAD Detailed) CPT:20352 Proc Modifiers : Portable Reason for Study: hypotension Clinical History: Report Status: Verified Date Reported: FEB 09, 2025 Date Verified: FEB 09, 2025 Program Instructor E-Sig:/ES/David Pastrana MD Report: CASE [id number]. AP portable view chest. COMPARISON: FINDINGS: Bilateral [...] effusion. Dictated by Jamal Chiu M.D. (Diagnostic Radiator Repairer). I, David Pastrana, have reviewed the images and report and concur with these findings. Primary Interpreting Staff: David Pastrana MD, Radiologist (Program Instructor) Primary Interpreting Resident: Resident HAL Physician /DAVID WADE [facility] Pathology Reports: +/- 30 days of [...] the Encounter. The data comes from all [place] treatment facilities. Date/Time Pathology Report Provider Source Feb 09, 2025 12:20 PM LR MICROBIOLOGY RE PORT: Accession [UID]: [id number] [[id number]] Received: Feb 09, 2025@12:29 Collection sample: B D BLD. BOTTLE Collection date: Feb 09, 2025 12:20 Site/Specimen: BLOOD Provider: ANNIE ARGUETA Test(s) ordered: BLOOD CULT (SET 1)............ completed: Feb 15, 2025 12:44 * BACTERIOLOGY FINAL REPORT => Feb 15, 2025 12:46 TECH CODE: [id number] Bacteriology Remark(s): 02/10/25 CMG CULTURE IS NEGATIVE TO DATE, ALL POSITIVES ARE ROUTINELY CALLED. Culture shows NO GROWTH IN 6 DAYS. 02/15/25 CED =--=--=--=--=--=--=--=--=--=- -=--=--=--=--=--=--=--=--=--= --=--=--=--=--=--=-- Performing Laboratory: Bacteriology Report Performed By: [id number] [place] [address] Bact Report Remark Performed By: [address] [id number] [address] [place] [address] Feb 09, 2025 12:15 PM LR MICROBIOLOGY RE PORT: Accession [UID]: [id number] [[id number]] Received: Feb 09, 2025@12:29 Collection sample: B D BLD. BOTTLE (SET 2)Collection date: Feb 09, 2025 12:15 Site/Specimen: BLOOD Provider: ANNIE ARGUETA Test(s) ordered: BLOOD CULT (SET 2)............ completed: Feb 15, 2025 12:45 * BACTERIOLOGY FINAL REPORT => Feb 15, 2025 12:46 TECH CODE: [id number] Bacteriology Remark(s): 02/10/25 CMG CULTURE IS NEGATIVE TO DATE, ALL POSITIVES ARE ROUTINELY CALLED. Culture shows NO GROWTH IN 6 DAYS. 02/15/25 CED =--=--=--=--=--=--=--=--=--=- -=--=--=--=--=--=--=--=--=--= --=--=--=--=--=--=-- Performing Laboratory: Bacteriology Report Performed By: [address] CLIA# [id number] [address] [facility] [address] [place] [address] Bact Report Remark Performed By: [address] CLIA# [id number] [address] [facility] [address] [place] [address] [facility] Encounter Notes: All associated encounter notes This section contains the clinical notes associated to the Encounter. Date/Time Encounter Note(s) Provider Source Jan 28, 2025 05:27 PM ADDENDUM: LOCAL TITLE: Addendum STANDARD TITLE: ADDENDUM DATE OF NOTE: JAN 28, 2025@17:27:57 ENTRY DATE: JAN 28, 2025@17:27:59 AUTHOR: SUBHASH TERRAZAS EXP COSIGNER: URGENCY: STATUS: COMPLETED Records r/t this episode of care sent for scanning, will be available within 24hrs. Alerting PCP team to this note for continuity of care. /cas/ SUBHASH ZAPIENN RN REGISTERED NURSE Signed: 01/28/2025 17:28 Receipt Acknowledged By: 01/29/2025 07:31 /cas/ ROB RUSS RN REGISTERED NURSE 02/03/2025 11:04 /cas/ CARLOS ESQUIVEL M.D. STAFF PHYSICIAN [facility] --- Original Document --- 01/25/25 [facility]UNITY [facility]ARE-DARRION SELF PRESENTING CARE COORD PLAN 657 STL: Emergency Notification Intake Date Presenting to the Facility: Jan Information Obtained Through: Notified from ECR worklist Notification ID: [id number] [facility] Referral #: 1703 Clinical Review [facility] Name: Hospital: [facility] Address: [address] City: [place] State: [place] Zip Code: [address] Community Facility Point of Contact: Name: Phone: Chief Complaint: FLU LIKE SYMPTOMS Primary Diagnosis: Disposition Unknown NO records available for this episode of care in [facility] or [facility]. Faxed request for records to above hospital ########################## ########################## # Status: 1703 CLINICAL REVIEW COMMUNITY PROVIDER/PATIENT WILL NEED TO CONTACT [facility] FOR STATUS OR QUESTIONS ########################## ########################## ## /mary anne WONG [facility] [employer] SUPERVISOR Signed: 01/27/2025 05:53 Receipt Acknowledged By: 01/28/2025 17:26 /cas/ SUBHASH ZAPIENN RN REGISTERED NURSE 01/27/2025 08:18 /es/ ROB RUSS RN REGISTERED NURSE 01/27/2025 08:46 /es/ CARLOS ESQUIVEL M.D. STAFF PHYSICIAN SUBHASH NORIEGA [facility] Jan 25, 2025 05:49 AM NONVA NOTE: LOCAL TITLE: COMMUNITY CARE-DARRION SELF PRESENTING CARE COORD PLAN STANDARD TITLE: NONVA NOTE DATE OF NOTE: JAN 25, 2025@05:49 ENTRY DATE: JAN 27, 2025@05:49:41 AUTHOR: RIDDHI WONG EXP COSIGNER: URGENCY: STATUS: COMPLETED COMMUN[facility]ARE-DARRION SELF PRESENTING CARE COORD PLAN [address] Has ADDENDA Emergency Notification Intake Date Presenting to the Facility: Jan Information Obtained Through: Notified from ECR worklist Notification ID: [id number] [facility] Referral #: 1703 Clinical Review [facility] Name: Hospital: [facility] Address: [address] City: [place] State: [place] Zip Code: [address] Community Facility Point of Contact: Name: Phone: Chief Complaint: FLU LIKE SYMPTOMS Primary Diagnosis: Disposition Unknown NO records available for this episode of care in [facility] ER or [facility]. Faxed request for records to above hospital ########################## ########################## # Status: 1703 CLINICAL REVIEW [facility] PROVIDER/PATIENT WILL NEED TO CONTACT [facility] FOR STATUS OR QUESTIONS ########################## ########################## ## /cas/ RIDDHI WONG [facility] [employer] SUPERVISOR Signed: 01/27/2025 05:53 Receipt Acknowledged By: 01/28/2025 17:26 /cas/ SUBHASH ZAPIENN RN REGISTERED NURSE 01/27/2025 08:18 /es/ ROB RUSS RN REGISTERED NURSE 01/27/2025 08:46 /es/ CARLOS ESQUIEVL M.D. STAFF PHYSICIAN [facility] 01/28/2025 ADDENDUM STATUS: COMPLETED Records r/t this episode of care sent for scanning, will be available within 24hrs. Alerting PCP team to this note for continuity of care. /mary anne RUSS RN REGISTERED NURSE Signed: 01/28/2025 17:28 Receipt Acknowledged By: * AWAITING SIGNATURE * ROB MENDOZA * AWAITING SIGNATURE * CARLOS ESQUIVEL PAULA C [facility]"
--- OUTSIDE RECORDS SUMMARY | 2025-01-27 06:00 | XMS_ITS | Encounter Summary ---
Author Name [facility] ([place] Organization [facility] Address [address] [place] [address] Care Team Providers Care Welfare Eligibility Interviewer Name Role Phone GRACE QUINN Primary Care Provider UnavailKAYODE Marquez Primary Care Provider Unavail able RACHAEL CARDONA Unavailable Unavailable GABRIELLE QUINN Unavailable Unavailable ORBINSON DAWKINS Unavailable Unavailable CALVIN OSEI Unavailable Unavailable ABDON PECK Unavailable Unavailable CHINYERE DOMINGUEZ Unavailable Unavailable VILMA CEDILLO Unavailable Unavailable AUSTIN HOWARD Unavailable Unavailable STU FABIAN Primary Care Provider UnavailCÉSAR Naik Unavailable Unavailable KAE ALEX Unavailable Unavailable TATIANNA DILL Unavailable Unavailable PATRICE OATES Unavailable Unavail able [...] Patient's Relationship to Policy Medina [facility] MEDICARE SUPPLEMEN SHEILA PLANF Mar 25, 2016 PLAN [id number] ISMAELTESS JOSE MARIA PATIENT [facility] MEDICARE SUPPLEMEN SHEILA PLANF Oct 23, 2010 PLANF [id number] [phone] ISMAELJOSE MARIA PULIDO PATIENT [facility] MEDICARE SUPPLEMEN SHEILA PLANF Mar 25, 2016 PLANF [id number] JOSE MARIA WHITE AARP MED SUPP MEDICARE HERB SOSA PLANF Oct 23, 2010 PLANF [id number] [phone] JOSE MARIA WHITE AARP [facility] (WNR) MEDICARE ADVANTAGE [facility] (WNR) July 24, 2023 [id number] [phone] JOS EMARIA WHITE PATIENT MEDICARE (WNR) MEDICARE (M) PART A July 24, 2003 PART A [id number] JOSE MARIA WHITE PATIENT MEDICARE (WNR) MEDICARE (M) PART B July 24, 2003 PART B [id number] [phone] JOSE MARIA WHITE PATIENT MEDICARE (WNR) MEDICARE (M) PART A July 24, 2003 PART A [id number] JOSE MARIA WHITE PATIENT [facility] (WNR) MEDICARE ADVANTAGE MCR (WNR) Mar 25, 2024 [id number] JOSE MARIA WHITE [facility] (WNR) MEDICARE ADVANTAGE MCR (WNR) Mar 25, 2024 [id number] JOSE MARIA WHITE PATIENT Selected Encounter This section includes the information on record at [place] for the Encounter. Date/Time Encounter Type Encounter Description Reason Provider Source Jan 27, 2025 12:00 PM RN CARE EA 15 MIN HH/HOSPICE HB Nursing (RN / LP) ICD-10-CM E11.9 Type 2 diabetes mellitus without complications HERO SHAFFER Vincent Encounter Template Text not used by [place] Assessments - Encounter Diagnoses This section includes the primary and secondary diagnoses documented for the Encounter. Date/Time Primary/Secondary Diagnosis Diagnosis Name Provider Source Jan 28, 2025 08:30 AM PRIMARY Type 2 diabetes mellitus without complications HERO SHAFFER [facility] Jan 28, 2025 08:30 AM SECONDARY Anxiety disorder, unspecified HERO SHAFFER [facility] Jan 28, 2025 08:30 AM SECONDARY Contact with and exposure to other hazardous substances HERO SHAFFER [facility] Jan 28, 2025 08:30 AM SECONDARY Essential (primary) hypertension HERO SHAFFER [facility] Jan 28, 2025 08:30 AM SECONDARY Gastro-esophageal reflux disease without esophagitis HERO SHAFFER [facility] Jan 28, 2025 08:30 AM SECONDARY Migraine w/o aura, not intractable, w/o status migrainosus HERO SHAFFER [facility] Jan 28, 2025 08:30 AM SECONDARY Sarcoidosis, unspecified HERO SHAFFER [facility] Plan of Treatment: Future Appointments (+ 6 months) and Future Tests (+/- 45 days) The Plan of Treatment section includes future care activities for the patient from all [facility]. This section includes future appointments and future orders which are active, pending or scheduled. Future Appointments This section includes appointments that were scheduled to occur 6 months from the date of the Encounter, up to a maximum of 20 appointments. The data comes from all [facility]. Appointment Date/Time Appointment Type Appointme nt Facility Name Feb 09, 2025 11:00 AM AMBULATORY - MEDICINE [facility] Feb 09, 2025 11:18 AM AMBULATORY - MEDICINE [facility] Feb 12, 2025 01:30 PM AMBULATORY - NONE [facility] Mar 15, 2025 01:30 PM AMBULATORY - NONE [facility] Mar 31, 2025 10:00 AM AMBULATORY - MEDICINE [facility] Mar 31, 2025 12:00 PM AMBULATORY - SURGERY [facility] Mar 31, 2025 02:30 PM AMBULATORY - MEDICINE [facility] Apr 09, 2025 11:00 AM AMBULATORY - MEDICINE [facility] May 03, 2025 03:00 PM AMBULATORY - NONE [facility] Active, Pending, and Scheduled Orders This section includes a listing of several types of active, pending, and scheduled orders, including clinic medications orders, diagnostic test orders, procedure orders and consult orders; where the start date of the order is 45 days before the date of the Encounter or 45 days after the date of theEncounter. The data comes from all [place] treatment facilities. 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 STL Cons Geriatric Nurse Assistant's Choice [facility] Jan 15, 2025 12:00 AM Laboratory - Chemistry Order CELIAC DISEASE PANEL (STL-MRN) GOLD/RED SST SERUM SP ONCE [facility] Jan 15, 2025 12:00 AM Laboratory - Chemistry Order IRON/TIBC PROFILE GOLD/RED SST SERUM SP [facility] Jan 15, 2025 12:00 AM Laboratory - Chemistry Order ANTI-NUCLEAR ANTIBODY (STL-PB) GOLD/RED SST SERUM SP [facility] Jan 15, 2025 12:00 AM Laboratory - Chemistry Order ACTIN (SMOOTHMUSCLE) ANTIBODY IGG GOLD/RED SST SERUM SP [facility] Jan 15, 2025 12:00 AM Laboratory - Chemistry Order IGG (STL) GOLD/RED SST SERUM SP [facility] Jan 15, 2025 12:00 AM Laboratory - Chemistry Order ANTI-MITOCHONDRIAL AB (STL-PB) GOLD/RED SST SERUM SP [facility] Jan 15, 2025 12:00 AM Laboratory - Chemistry Order HEP HB S Ag (AUSRIA) (STL) GOLD/RED SST SERUM SP [facility] Jan 15, 2025 12:00 AM Laboratory - Chemistry Order HEP B CORE AB TOTAL. (STL) GOLD/RED SST SERUM SP [facility] Jan 15, 2025 12:00 AM Laboratory - Chemistry Order HEPATITIS B SURFACE AB PNL GOLD/RED SST SERUM SP [facility] Jan 15, 2025 12:00 AM Laboratory - Chemistry Order HEPATITIS A IGG AB (STL) GOLD/RED SST SERUM SP [facility] Jan 15, 2025 12:00 AM Laboratory - Chemistry Order ALPHA-1 ANTITRYPSIN (STL-PB) GOLD/RED SST SERUM SP [facility] Jan 15, 2025 12:00 AM Laboratory - Chemistry Order FERRITIN GOLD/RED SST SERUM SP [facility] Jan 15, 2025 12:00 AM Laboratory - Chemistry Order HEPATIC FUNTION PANEL (STL) GREEN LI/HEP BLD/PLAS PLASMA SP [facility] Jan 15, 2025 12:00 AM Laboratory - Chemistry Order HEP C Ab HCV Ab (STL) GOLD/RED SST SERUM SP [facility] Feb 09, 2025 12:18 PM Laboratory - Chemistry Order URINALYSIS W/ CX REFLEX (STL-PB) URN - CLEAN CATCH URINE WC ONCE [facility] Mar 01, 2025 12:00 AM Laboratory - Microbiology Order C&S URINE URINE HOLT WC ONCE [facility] Mar 01, 2025 12:00 AM Laboratory - Chemistry Order OCCULT BLOOD FIT X1 SCREEN STOOL FECES SP [facility] Mar 01, 2025 12:00 AM Laboratory - Chemistry Order ANTITHROMBIN III ACTIVITY BLUE,LIGHT(SODIUM CITRATE) PLASMA SP [facility] Mar 01, 2025 09:36 AM Consult Order EYE CLINIC OUTPT JESSICA Cons Geriatric Nurse Assistant's Choice [facility] Mar 01, 2025 09:36 AM Consult Order VASCULAR LAB OUTPT STL Cons Geriatric Nurse Assistant's Choice [facility] Mar 01, 2025 09:36 AM Consult Order CARDIOLOGY OUTPT JESSICA Cons Geriatric Nurse Assistant's Choice [facility] Mar 08, 2025 12:00 PM Laboratory - Chemistry Order FACTOR V(LEIDEN)MUTATION ANALYSIS BLOOD SP [facility] Mar 09, 2025 12:00 AM Laboratory - Chemistry Order URINE DRUG SCREEN (STL) URINE YELLOW SP [facility] Lab Results: +/- 30 days of the [...] Type Comment Feb 10, 2025 12:51 PM [facility] GLUCOSE,BLOOD-poct (STL) BLOOD Specimen Type: BLOOD Comment: Test Performed by: [id number] Meter #: [id number] Ordering Provider: ANN BEASLEY Report Released Date/Time: Feb 10, 2025 12:53 PM Reporting Lab: [place] [address] [facility] [address] Performing Lab: [place] [address] [facility] [address] GLUCOSE,BLOOD-poct (STL) 199 mg/dL H 72-99 Feb 10, 2025 05:13 AM [facility] GLUCOSE,BLOOD-poct (STL) BLOOD Specimen Type: BLOOD Comment: Test Performed by: [id number] Meter #: [id number] Ordering Provider: ANN BEASLEY Report Released Date/Time: Feb 10, 2025 05:37 AM Reporting Lab: [place] [address] [facility] [address] Performing Lab: [place] [address] [facility] [address] GLUCOSE,BLOOD-poct (STL) 95 mg/dL 72-99 Feb 09, 2025 11:20 PM [facility] APTT PLASMA Specimen Type: PLASM A Comment: ~HEP BOLUS - CALL RESULTS Ordering Provider: JESSE BURGOS Report Released Date/Time: Feb 09, 2025 04:35 PM Reporting Lab: [place] [address] [facility] [address] Performing Lab: [place] [address] [facility] [address] APTT 29.9 s 26.7-39.9 Feb 09, 2025 08:35 PM [facility] GLUCOSE,BLOOD-poct (STL) BLOOD Specimen Type: BLOOD Comment: Test Performed by: [id number] Meter #: [id number] Ordering Provider: ANN BEASLEY Report Released Date/Time: Feb 09, 2025 08:41 PM Reporting Lab: [place] [address] [facility] [address] Performing Lab: [place] [address] [facility] [address] GLUCOSE,BLOOD-poct (STL) 159 mg/dL H 72-99 Feb 09, 2025 05:22 PM [facility] MRSA SURVL NARES DNA [...] Feb 09, 2025 04:31 PM Reporting Lab: [address] [address] Performing Lab: [address] [address] MRSA SURVL NARES DNA Negative Negative Feb 09, 2025 05:00 PM [facility] APTT PLASMA Specimen Type: PLASM A Comment: ~HEP BOLUS-CALL RESULTS Ordering Provider: JESSE BURGOS Report Released Date/Time: Feb 09, 2025 04:35 PM Reporting Lab: [address] [address] Performing Lab: [address] [address] APTT 28.0 s 26.7-39.9 Feb 09, 2025 04:59 PM [facility] GLUCOSE,BLOOD-poct (STL) BLOOD Specimen Type: BLOOD Comment: Test Performed by: [id number] Meter #: [id number] Ordering Provider: ANN BEASLEY Report Released Date/Time: Feb 09, 2025 05:02 PM Reporting Lab: [address] [address] Performing Lab: [address] [address] GLUCOSE,BLOOD-poct (STL) 162 mg/dL H 72-99 Feb 09, 2025 01:55 PM [facility] LACTIC ACID (STL-PB) PLASMA Specimen Type: TAMARA SMA No comment entered. Ordering Provider: CHINO LEONG I Report Released Date/Time: Feb 09, 2025 01:44 PM Reporting Lab: [address] [address] Performing Lab: [address] [address] LACTIC ACID (STL-PB) 2.9 mmol/L H 0.5-2.0 Feb 09, 2025 11:52 AM [facility] BLOOD GAS PANEL ABG (L) VENOUS BLOOD Specimen Type : VENOUS BLOOD Comment: Test Performed by: [id number] Meter #: [id number] Ordering Provider: ANNIE ARGUETA Report Released Date/Time: Feb 09, 2025 11:53 AM Reporting Lab: [address] [address] Performing Lab: [address] [address] GEM PH 7.40 7.31-7.41 GEM PCO2 36 [...] TEMP 37.0 Feb 09, 2025 11:51 AM [facility] BRAIN NATRIURETIC PEPTIDE PLASMA Specimen Type : PLASMA No comment entered. Ordering Provider: CHINO LEONG I Report Released Date/Time: Feb 09, 2025 01:19 PM Reporting Lab: [address] [address] Performing Lab: [address] [address] BRAIN NATRIURETIC PEPTIDE 341.6 pg/mL H 0- 100 Feb 09, 2025 11:31 AM [facility] TROPONIN I (STL) PLASMA Specimen Type: PLAS MA Comment: No hemolysis noted. Ordering Provider: KESHIA HUYNH Report Released Date/Time: Feb 09, 2025 11:30 AM Reporting Lab: [address] [address] Performing Lab: [address] [address] TROPONIN I (STL) 0.019 ng/mL 0-0.033 Feb 09, 2025 11:31 AM [facility] COMPREHENSIVE METABOLIC PANEL PLASMA Specimen Type: PLASMA Comment: No hemolysis noted. Ordering Provider: KESHIA HUYNH Report Released Date/Time: Feb 09, 2025 11:30 AM Reporting Lab: [address] [address] Performing Lab: [address] [address] CREATININE 0.96 mg/dL 0.7-1.3 UREA NITROGEN 16.8 [...] >60 Feb 09, 2025 11:31 AM [facility] CBC BLOOD Specimen Type: BLOOD No comment entered. Ordering Provider: KESHIA HUYNH Report Released Date/Time: Feb 09, 2025 11:30 AM Reporting Lab: [place] [address] [facility] [address] Performing Lab: [address] [address] WBC 5.6 10*3/uL 3.6-11.2 RBC 3.71 10*6/uL [...] 0.00-0. 20 Feb 09, 2025 11:20 AM [facility] GLUCOSE,BLOOD-poct (STL) BLOOD Specimen Type: BLOOD Comment: Test Performed by: [id number] Meter #: [id number] Ordering Provider: ANNIE ARGUETA Report Released Date/Time: Feb 09, 2025 11:22 AM Reporting Lab: [address] [address] Performing Lab: [place] [address] [facility] [address] GLUCOSE,BLOOD-poct (STL) 161 mg/dL H 72-99 Social [...] Facil ity Jun 05, 2023 01:00 PM [place]-TOBACCO FORMER USER [facility] Tobacco Use History This section includes a history of the smoking, or tobacco-related health factors, that were collected on or before the date of the Encounter. The data comes from the [place] facility where the Encounter took place. Date/Time Smoking Status/Tobacco Use Comment F acility Jun 05, 2023 01:00 PM [place]-TOBACCO QUIT 15 YRS OR MORE [facility] Radiology Reports: +/- 30 days of the [...] data comes from all [place] treatment facilities. Date/Time Radiology Report Provider Source Feb 10, 2025 11:29 AM US EXTREMITY VEINS BILAT (DVT): JOSE MARIA WHITE [id number] -1945 M Exm Date: FEB 10, 2025@11:29 Req Phys: JESSE BURGOS Pat Loc: 6N S OE-JSESICA/02-10-2025@13:14 Img Loc: JESSICA-ULTRASOUND JESSICA Service: [id number] SERVICE [address] [address] (Case [id number] COMPLETE) US EXTREMITY VEINS BILAT (DVT) (US Detailed) CPT:97373 Reason for Study: dx with PE Clinical History: Report Status: Verified Date Reported: FEB 10, 2025 Date Verified: FEB 10, 2025 Investor Relations Director E-Sig:/ES/David Pastrana MD Report: CASE #: [id number] DATE:02/10/2025 12:51 PM CLINICAL HISTORY:dx with PE [...] verification. Dictated by Chastity Mantilla M.D. (Diagnostic Azure Developer). IDavid, have reviewed the images and report and concur with these findings. Primary Interpreting Staff: David Pastrana MD, Radiologist (Investor Relations Director) Primary Interpreting Resident: Chastity Mantilla MD, Resident Physician /DAVID [facility] Feb 09, 2025 03:[address] PE CHEST W/3D: JOSE MARIA WHITE [id number] -1945 M Exm Date: FEB 09, 2025@15:10 Req Phys: CHINO LEONG I Pat Loc: 6N S -JESSICA/02-09-2025@16:39 Img Loc: JESSICA-CT IMAGING JESSICA Service: Unknown [facility], [facility] [address] [place] [address] (Case [id number] COMPLETE) CT THORAX W/CONT (PE) (CT Detailed) CPT:61871 Contrast Media : unspecified contrast media Reason for Study: syncope, abormanl CXR Clinical History: Responsible Attending: Mariam Attending Contact Number: [phone] Resident Contact Number: syncope, abormanl CXR Allergies listed in CPRS chart: PENICILLIN, TETRACYCLINE, NEOSPORIN, CELEBREX, SIMVASTATIN Creatinine: CREATININE 0.96 mg/dL 02/09/2025 11:31 /eGFR: STL EGFR (within one year). CREATININE 0.96 mg/dL (02/09/25 11:31) Wt: 273.5 lb [124.06 kg] (09/10/2023 13:16) History of: Renal failure, chronic or acute renal disease: NO Report Status: Verified Date Reported: FEB 09, 2025 Date Verified: FEB 09, 2025 Investor Relations Director E-Sig:/ES/REA MARLEY Report: CASE #: [id number] DATE:02/09/2025 4:08 PM CLINICAL HISTORY:syncope, abormanl CXR [...] confirmation. Dictated by Jamal Chiu M.D. (Diagnostic Azure Developer). I, Rea Marley, have reviewed the images and report and concur with these findings. Primary Interpreting Staff: REA MARLEY, Staff Physician (Investor Relations Director) Primary Interpreting Resident: JAMAL CHIU, Resident Physician /REA [facility] Feb 09, 2025 01:[address] HEAD W/O CONT: JOSE MARIA WHITE [id number] -1945 M Exm Date: FEB 09, 2025@13:01 Req Phys: CHINO LEONG Loc: JESSICA-EMERGENCY DEPT 2ND SHIFT (R Img Loc: JESSICA-CT IMAGING JESSICA Service: [facility], [address] [address] (Case [id number] COMPLETE) CT HEAD W/O CONT (CT Detailed) CPT:80400 Reason for Study: syncopal episode Clinical History: Responsible Attending: Mariam Attending Contact Number: [phone] Resident Contact Number: syncopal episode Allergies listed in CPRS chart: PENICILLIN, TETRACYCLINE, NEOSPORIN, CELEBREX, SIMVASTATIN Creatinine: CREATININE 0.90 mg/dL 08/07/2024 14:00 /eGFR: STL EGFR (within one year). CREATININE 0.90 mg/dL (08/07/24 14:00) Wt: 273.5 lb [124.06 kg] (09/10/2023 13:16) History of: Renal failure, chronic or acute renal disease: NO Report Status: Verified Date Reported: FEB 09, 2025 Date Verified: FEB 09, 2025 Investor Relations Director E-Sig:/ES/REA MARLEY Report: CASE #: [id number] DATE:02/09/2025 1:35 PM CLINICAL HISTORY:syncopal episode TECHNIQUE: [...] process. Dictated by Jamal Chiu M.D. (Diagnostic Azure Developer). Rea Soni, have reviewed the images and report and concur with these findings. Primary Interpreting Staff: REA MARLEY, Staff Physician (Investor Relations Director) Primary Interpreting Resident: JAMAL CHIU Resident Physician /REA [facility] Feb 09, 2025 11:32 AM CHEST PORTABLE: JOSE MARIA WHITE [id number] -1945 M Exm Date: FEB 09, 2025@11:32 Req Phys: KESHIA HUYNH Loc: JESSICA-EMERGENCY DEPT 2ND SHIFT (R Img Loc: -MAIN RADIOLOGY SUITE Service: Unknown [facility], [facility] [address] [place] [address] (Case [id number] COMPLETE) CHEST PORTABLE (RAD Detailed) CPT:09453 Proc Modifiers : Portable Reason for Study: hypotension Clinical History: Report Status: Verified Date Reported: FEB 09, 2025 Date Verified: FEB 09, 2025 Investor Relations Director E-Sig:/ES/David Pastrana MD Report: CASE [id number]. AP portable view chest. COMPARISON: FINDINGS: Bilateral [...] effusion. Dictated by Jamal Chiu M.D. (Diagnostic Azure Developer). I, David Zeina, have reviewed the images and report and concur with these findings. Primary Interpreting Staff: David Pastrana MD, Radiologist (Investor Relations Director) Primary Interpreting Resident: JAMAL CHIU, Resident Physician /DAVID [facility] Pathology Reports: +/- 30 days [...] data comes from all [place] treatment facilities. Date/Time Pathology Report Provider Source Feb 09, 2025 12:20 PM LR MICROBIOLOGY RE PORT: Accession [UID]: [id number] [[id number]] Received: Feb 09, 2025@12:29 Collection sample: B D BLD. BOTTLE Collection date: Feb 09, 2025 12:20 Site/Specimen: BLOOD Provider: ANNIE ARGUETA Test(s) ordered: BLOOD CULT (SET 1)............ completed: Feb 15, 2025 12:44 * BACTERIOLOGY FINAL REPORT => Feb 15, 2025 12:46 TECH CODE: [id number] Bacteriology Remark(s): 02/10/25 CMG CULTURE IS NEGATIVE TO DATE, ALL POSITIVES ARE ROUTINELY CALLED. Culture shows NO GROWTH IN 6 DAYS. 02/15/25 CED =--=--=--=--=--=--=--=--=--=- -=--=--=--=--=--=--=--=--=--= --=--=--=--=--=--=-- Performing Laboratory: Bacteriology Report Performed By: [facility] [address] [place], [place] [address]IA# [id number] 915 [facility] [address] [place] [address] Bact Report Remark Performed By: [facility] CLIA# [id number] [address] [id number] [facility] Feb 09, 2025 12:15 PM LR MICROBIOLOGY RE PORT: Accession [UID]: [facility] [id number] [[id number]] Received: Feb 09, 2025@12:29 Collection sample: B D BLD. BOTTLE (SET 2)Collection date: Feb 09, 2025 12:15 Site/Specimen: BLOOD Provider: ANNIE ARGUETA T Test(s) ordered: BLOOD CULT (SET 2)............ completed: Feb 15, 2025 12:45 * BACTERIOLOGY FINAL REPORT => Feb 15, 2025 12:46 TECH CODE: [id number] Bacteriology Remark(s): 02/10/25 CMG CULTURE IS NEGATIVE TO DATE, ALL POSITIVES ARE ROUTINELY CALLED. Culture shows NO GROWTH IN 6 DAYS. 02/15/25 CED =--=--=--=--=--=--=--=--=--=- -=--=--=--=--=--=--=--=--=--= --=--=--=--=--=--=-- Performing Laboratory: Bacteriology Report Performed By: [facility] CLIA# [id number] [address] [address] Bact Report Remark Performed By: [facility] CLIA# [id number] [address] [address] [facility] Encounter Notes: All associated encounter notes This section contains the clinical notes associated to the Encounter. Date/Time Encounter Note(s) Provider Source Jan 27, 2025 12:00 PM [facility] NOTE: LOCAL TITLE: [facility] PATIENT SCREEN STL STANDARD TITLE: [facility] NOTE DATE OF NOTE: JAN 27, 2025@12:00 ENTRY DATE: JAN 27, 2025@15:19:42 AUTHOR: HERO SHAFFER COSIGNER: URGENCY: STATUS: COMPLETED [facility] ADMISSION SCREENING TOOL a 79-year-old frail elderly male with chronic back pain, hypertension, He has been diagnosed with anemia, type 2 diabetes, migraines, sarcoidosis, and PTSD. Mobility is limited. He was recently hospitalized at [facility] for GI symptoms, where he reported that they diagnosed him with a slight occlusion of the gallbladder and a diabetic-induced liver cirrhosis. He stated that he had been hospitalized 3 times over the past month with GI issues. [facility] as well as a [facility]. He had a recent onset of Afib, and they put him on a Holter monitor that he is currently wearing. The patient lives by himself, but his daughter lives in the same apartment complex. He greeted the nurse at the door. He had a shirt and a brief on. He apologized, stating that his pants are off due to his ongoing diarrhea. Screening took place in his living room. He was alert and oriented. He was able to tell his RN his medical history and explain to this RN how he sets up his meds. He became very tearful a few times during our conversation in relation to his family history, the of his biological kids, the passing of his , and his time in [place] (he stated that he used to be called the demon of ). He mentioned that he has a violent past in the and get very vivid nightmares. He added that getting to doctor's appointments is becoming increasingly difficult, and his daughter is overwhelmed by her work and recently re-candle with her boyfriend which takes a lot of her time. He stated that she has autism and sometimes struggles to cope. He added that he had tried the [place] travel program twice before but was not did not go smoothly. So he kind of lost my. Daughter is currently helping with his finances, ordering food, and driving him to his appointments. He lives in a ground-level apartment in need of cleaning. He has multiple trash bags with trash in them needing to be taken to the dumpster. He has empty boxes of pizza piled up in a corner of his living room that also need to be disposed of. He stated that he has no strength to do so and is scared to fall. Besides a walker and a cane, no other equipment was found in the home. The patient stated that they just got approved for PU[employer] SERVIC[employer] HELPER hours. lives at: home If other, please explain. lives with: no one/lives alone If other, please explain. The home environment free of safety risks for [facility] staff; e.g., safe oxygen use, firearms/weapons securely stored, restrained animals, no illicit substance use? YES The following services are in place: None Does the have prescription co-pays? NO Appointment co-pays? YES Ada has the following chronic medical conditions: HTN , DM , other If other, please explain. Number of emergency department visits in the past six months related to an exacerbation of a chronic medical condition? 4 Number of hospital admissions in the past six months related to an exacerbation of a chronic medical condition? 3 Is the physically able to attend out-patient medical appointments? YES In your clinical judgement, does the Ada have needs that cannot be provided in the home? YES If Yes, what are those: specialist If Yes /caregiver educated regarding these gaps in care to include potential clinical consequences. YES If patient safety risks are present that warrant 24/7 care oversight, are social supports in-place to provide such care? YES If not, was the Ada/caregiver educated regarding the clinical risks associated with inadequate social support/home services in-place, as well as potential resources to help address same; i.e., PUMP SERVICER HELPER, [facility], [facility], [facility], [facility], SKILLED NURSING, SNF, etc.? YES Ada and/or caregiver introduced to [facility] Primary Care Team concept and understands the roles and goals of the program; e.g., must meet clinical criteriafor admission, as well as retention, adhere to program policies in order to remain in [facility], and be agreeable to a change in PCP if admitted to [facility]: YES and/or caregiver desire admission to [facility]: YES and/or caregiver notified that they will be informed of admission decision following IDT discussion: YES * Drive time: 57min /es/ HERO SHAFFER REGISTERED NURSE Signed: 01/28/2025 08:30 Receipt Acknowledged By: 02/17/2025 09:10 /es/ April Vance, Pharm.D, BCACP CLINICAL PHARMACIST SPECIALIST-[facility] 01/28/2025 13:07 /es/ Kae Alex, Ph.D. Psychologist 02/05/2025 13:05 /es/ Tatianna Dill MSG,RD,CSG,LD Gerontological Dietitian 01/28/2025 09:30 /es/ KYMBERLY ESPINAL, MSN, RN CGJJ 01/28/2025 10:47 /es/ YULIANA DORMAN PHD RN REGISTERED NURSE 02/01/2025 11:41 /es/ AMOS BOWERS PHYSICAL THERAPIST 01/29/2025 11:35 /es/ STU FABIAN MD, MS 01/29/2025 11:11 /es/ PATRICE OATES [facility] Clinical Gas Combustion Engineer 01/28/2025 10:47 /es/ CÉSAR DORSEY Riveter Pneumatic, [facility] HERO SHAFFER [facility]
--- OUTSIDE RECORDS SUMMARY | 2025-02-01 03:13 | XMS_ITS | Encounter Summary ---
Author Name Department of [facility] ([place]) Organization [facility] ([place]) Address [address] [place] [address] Care Team Providers Care Drawing Instructor Name Role Phone GRACE QUINN Primary Care Provider UnavailKAYODE Marquez Primary Care Provider Unavail able RACHAEL CARDONA Unavailable Unavailable GABRIELLE QUINN Unavailable Unavailable ROBINSON DAWKINS Unavailable Unavailable CALVIN OSEI Unavailable Unavailable ABDON PECK Unavailable Unavailable CHINYERE DOMINGUEZ Unavailable Unavailable VILMA CEDILLO Unavailable Unavailable AUSTIN HOWARD Unavailable Unavailable STU FABIAN Primary Care Provider UnavailCÉSAR aNik Unavailable Unavailable SHARON HOLCOMB Unavailable Unavailable TATIANNA [...] Medina's Name Patient's Relationship to Policy Medina [facility] MEDICARE SUPPLEMEN SHEILA PLANF Mar 25, 2016 PLAN [id number] [phone] ISMAELJOSE MARIA PULIDO PATIENT [facility] MEDICARE SUPPLEMEN SHEILA PLANF Oct 23, 2010 PLANF [id number] [phone] JOSE MARIA WHITE PATIENT [facility] MEDICARE SUPPLEMEN SHEILA PLANF Mar 25, 2016 PLANF [id number] JOSE MARIA WHITEP MED SUPP MEDICARE SUPPLEMEN SHEILA PLANF Oct 23, 2010 PLANF [id number] [phone] JOSE MARIA WHITEP [facility] (WNR) MEDICARE ADVANTAGE [facility] (WNR) July 24, 2023 [id number] JOSE MARIA WHITE PATIENT MEDICARE (WNR) MEDICARE (M) PART B July 24, 2003 PART B [id number] JOSE MARIA WHITE PATIENT MEDICARE (WNR) MEDICARE (M) PART A July 24, 2003 PART A [id number] JOSE MARIA WHITE PATIENT MEDICARE (WNR) MEDICARE (M) PART A July 24, 2003 PART A [id number] [phone] JOSE MARIA WHITE PATIENT [facility] (WNR) MEDICARE ADVANTAGE [facility] (WNR) Mar 25, 2024 [id number] JOSE MARIA WHITE [facility] (WNR) MEDICARE ADVANTAGE [facility] (WNR) Mar 25, 2024 [id number] [phone] JOSE MARIA WHITE PATIENT Selected Encounter This section includes the information on record at [place] for the Encounter. Date/Time Encounter Type Encounter Description Reason Pro vider Source Feb 01, 2025 09:13 AM Outpatient Encounter COMMUNITY CARE CONSULT IHE Encounter Template Text not used by [place] [...] 11:00 AM AMBULATORY - MEDICINE [facility] Feb 09, 2025 11:18 AM AMBULATORY - MEDICINE [facility] Feb 12, 2025 01:30 PM AMBULATORY - NONE [facility] Mar 15, 2025 01:30 PM AMBULATORY - NONE [facility] STEPHANIE Sauceda [facility] Mar 31, 2025 10:00 AM AMBULATORY - MEDICINE [facility] Mar 31, 2025 12:00 PM AMBULATORY - SURGERY Kacey STRAUSS [facility] Mar 31, 2025 02:30 PM AMBULATORY - MEDICINE [facility] Apr 09, 2025 11:00 AM AMBULATORY - MEDICINE [facility] May 03, 2025 03:00 PM AMBULATORY - NONE [facility] Active, Pending, and Scheduled Orders This section [...] COMMUNITY CARE-GEC HOMEMAKER/HOME HEALTH AIDE STL Cons Wheel Inspector's Choice [facility] Jan 15, 2025 12:00 AM Laboratory - Chemistry Order CELIAC DISEASE PANEL (STL-MRN) GOLD/RED SST SERUM SP ONCE [facility] Jan 15, 2025 12:00 AM Laboratory - Chemistry Order ANTI-NUCLEAR ANTIBODY (STL-PB) GOLD/RED SST SERUM SP [facility] Jan 15, 2025 12:00 AM Laboratory - Chemistry Order IRON/TIBC PROFILE GOLD/RED SST SERUM SP [facility] Jan 15, 2025 12:00 AM Laboratory - Chemistry Order ANTI-MITOCHONDRIAL AB (STL-PB) GOLD/RED SST SERUM SP [facility] Jan 15, 2025 12:00 AM Laboratory - Chemistry Order ACTIN (SMOOTHMUSCLE) ANTIBODY IGG GOLD/RED SST SERUM SP [facility] Jan 15, 2025 12:00 AM Laboratory - Chemistry Order HEP HB S Ag (AUSRIA) (STL) GOLD/RED SST SERUM SP [facility] Jan 15, 2025 12:00 AM Laboratory - Chemistry Order HEPATITIS B SURFACE AB PNL GOLD/RED SST SERUM SP [facility] Jan 15, 2025 12:00 AM Laboratory - Chemistry Order IGG (STL) GOLD/RED SST SERUM SP [facility] Jan 15, 2025 12:00 AM Laboratory - Chemistry Order HEPATITIS A IGG AB (STL) GOLD/RED SST SERUM [facility] Jan 15, 2025 12:00 AM Laboratory - Chemistry Order ALPHA-1 ANTITRYPSIN (STL-PB) GOLD/RED SST SERUM SP [facility] Jan 15, 2025 12:00 AM Laboratory - Chemistry Order HEP B CORE AB TOTAL. (STL) GOLD/RED SST SERUM [facility] Jan 15, 2025 12:00 AM Laboratory - Chemistry Order FERRITIN GOLD/RED SST SERUM [facility] Jan 15, 2025 12:00 AM Laboratory - Chemistry Order HEPATIC FUNTION PANEL (STL) GREEN LI/HEP BLD/PLAS PLASMA SP [facility] Jan 15, 2025 12:00 AM Laboratory - Chemistry Order HEP C Ab HCV Ab (STL) GOLD/RED SST SERUM SP [facility] Feb 09, 2025 12:18 PM Laboratory - Chemistry Order URINALYSIS W/ CX REFLEX (STL-PB) URN - CLEAN CATCH URINE WC ONCE [facility] Mar 01, 2025 12:00 AM Laboratory - Microbiology Order C&S URINE URINE HOLT WC ONCE [facility] Mar 01, 2025 12:00 AM Laboratory - Chemistry Order OCCULT BLOOD FIT X1 SCREEN STOOL FECES SP [facility] Mar 01, 2025 12:00 AM Laboratory - Chemistry Order ANTITHROMBIN III ACTIVITY BLUE,LIGHT(SODIUM CITRATE) PLASMA SP [facility] Mar 01, 2025 09:36 AM Consult Order EYE CLINIC OUTPT JESSICA Cons Wheel Inspector's Choice [facility] Mar 01, 2025 09:36 AM Consult Order VASCULAR LAB OUTPT STL Cons Wheel Inspector's Choice [facility] Mar 01, 2025 09:36 AM Consult Order CARDIOLOGY OUTPT JESSICA Cons Wheel Inspector's Choice [facility] Mar 08, 2025 12:00 PM Laboratory - Chemistry Order FACTOR V(LEIDEN)MUTATION ANALYSIS BLOOD SP [facility] Mar 09, 2025 12:00 AM Laboratory - Chemistry Order URINE DRUG SCREEN (STL) URINE YELLOW SP [facility] Mar 15, 2025 12:00 AM Laboratory - Chemistry Order HEP C Ab HCV Ab (STL) GOLD/RED SST SERUM SP [facility] Mar 15, 2025 12:00 AM Laboratory - Chemistry Order LACTOFERRIN,STOOL (L-MA-PB) STOOL FECES SP [facility] Mar 15, 2025 12:00 AM Laboratory - Chemistry Order ANTI-NUCLEAR ANTIBODY (L-PB) GOLD/RED SST SERUM [facility] Mar 15, 2025 12:00 AM Laboratory - Chemistry Order ANTI-MITOCHONDRIAL AB (STL-PB) GOLD/RED SST SERUM SP [facility] Mar 15, 2025 12:00 AM Laboratory - Chemistry Order ACTIN (SMOOTHMUSCLE) ANTIBODY IGG GOLD/RED SST SERUM SP [facility] Mar 15, 2025 12:00 AM Laboratory - Chemistry Order HEP HB S Ag (AUSRIA) (STL) GOLD/RED SST SERUM [facility] Mar 15, 2025 12:00 AM Laboratory - Chemistry Order IGG (STL) GOLD/RED SST SERUM SP [facility] Mar 15, 2025 12:00 AM Laboratory - Chemistry Order HEPATITIS B SURFACE AB PNL GOLD/RED SST SERUM SP [facility] Mar 15, 2025 12:00 AM Laboratory - Chemistry Order HEP B CORE AB TOTAL. (STL) GOLD/RED SST SERUM SP [facility] Mar 15, 2025 12:00 AM Laboratory - Chemistry Order HEPATITIS A IGG AB (STL) GOLD/RED SST SERUM [facility] Mar 15, 2025 12:00 AM Laboratory - Chemistry Order CELIAC DISEASE PANEL (STL-MRN) GOLD/RED SST SERUM SP ONCE [facility] Mar 15, 2025 12:00 AM Laboratory - Chemistry Order ALPHA-1 ANTITRYPSIN (STL-PB) GOLD/RED SST SERUM SP [facility] Mar 15, 2025 12:00 AM Imaging - General Radiology Order SPINE LUMBOSACRAL 2 OR 3 VIEWS [facility] Mar 15, 2025 10:49 AM Laboratory - Chemistry Order SHIGA TOXIN 1 STOOL FECES WC ONCE [facility] Mar 15, 2025 10:49 AM Laboratory - Chemistry Order SHIGA TOXIN 2 STOOL FECES WC ONCE [facility] Mar 15, 2025 10:49 AM Laboratory - Microbiology Order C&S STOOL STOOL FECES WC [facility] Mar 15, 2025 10:49 AM Laboratory - Chemistry Order C DIFF EPI PCR PNL STOOL, PARA-PACK CLEAN FECES [facility] Mar 15, 2025 10:49 AM Laboratory - Microbiology Order PARASITE EXAM (STL) STOOL, PARA-PACK CLEAN FECES [facility] Mar 15, 2025 10:49 AM Consult Order GI DIAGNOSTIC COLONOSCOPY OUTPATIENT JESSICA Cons Wheel Inspector's Choice [facility] Lab Results: +/- 30 days of the encounter This section includes the Chemistry and Hematology Lab Results on record with [place] for the patient. Radiology Reports and Pathology Reports are provided separately, in subsequent sections. Lab Results This section contains the Chemistry/Hematology Results that were resulted 30 days before or 30 daysafter the date of the Encounter. Date/Time Source Result Type Result - Unit Interpretation Reference Range Specimen Type Comment Feb 10, 2025 12:51 PM [facility] GLUCOSE,BLOOD-poct (STL) BLOOD Specimen Type: BLOOD Comment: Test Performed by: [id number] Meter #: [id number] Ordering Provider: ANN BEASLEY Report Released Date/Time: Feb 10, 2025 12:53 PM Reporting Lab: [place] [address] [facility] [address] Performing Lab: [place] [address] [facility] [address] GLUCOSE,BLOOD-poct (STL) 199 mg/dL H 72-99 Feb 10, 2025 05:13 AM [facility] GLUCOSE,BLOOD-poct (STL) BLOOD Specimen Type: BLOOD Comment: Test Performed by: [id number] Meter #: [id number] Ordering Provider: ANN BEASLEY Report Released Date/Time: Feb 10, 2025 05:37 AM Reporting Lab: [place] [address] [facility] [address] Performing Lab: [place] [address] [facility] [address] GLUCOSE,BLOOD-poct (STL) 95 mg/dL 72-99 Feb 09, 2025 11:20 PM [facility] APTT PLASMA Specimen Type: PLASM A Comment: ~HEP BOLUS - CALL RESULTS Ordering Provider: JESSE BURGOS Report Released Date/Time: Feb 09, 2025 04:35 PM Reporting Lab: [place] [address] [facility] [address] Performing Lab: [address] [address] APTT 29.9 s 26.7-39.9 Feb 09, 2025 08:35 PM [facility] GLUCOSE,BLOOD-poct (STL) BLOOD Specimen Type: BLOOD Comment: Test Performed by: [id number] Meter #: [id number] Ordering Provider: ANN BEASLEY Report Released Date/Time: Feb 09, 2025 08:41 PM Reporting Lab: [place] [address] [facility] [address] Performing Lab: [address] [address] GLUCOSE,BLOOD-poct (STL) 159 mg/dL H 72-99 Feb 09, 2025 05:22 PM [facility] MRSA SURVL NARES DNA NARES Specimen Type: [...] Feb 09, 2025 04:31 PM Reporting Lab: [facility] [address] [facility] [address] Performing Lab: [facility] [address] [place] [address] MRSA SURVL NARES DNA Negative Negative Feb 09, 2025 05:00 PM [facility] APTT PLASMA Specimen Type: PLASM A Comment: ~HEP BOLUS-CALL RESULTS Ordering Provider: JESSE BURGOS Report Released Date/Time: Feb 09, 2025 04:35 PM Reporting Lab: [place] [address] [facility] [address] Performing Lab: [address] [address] APTT 28.0 s 26.7-39.9 Feb 09, 2025 04:59 PM [facility] GLUCOSE,BLOOD-poct (STL) BLOOD Specimen Type: BLOOD Comment: Test Performed by: [id number] Meter #: [id number] Ordering Provider: ANN BEASLEY Report Released Date/Time: Feb 09, 2025 05:02 PM Reporting Lab: [facility] [address] [facility] [address] Performing Lab: [facility] [address] [place] [address] GLUCOSE,BLOOD-poct (STL) 162 mg/dL H 72-99 Feb 09, 2025 01:55 PM [facility] LACTIC ACID (STL-PB) PLASMA Specimen Type: TAMARA SMA No comment entered. Ordering Provider: CHINO LEONG I Report Released Date/Time: Feb 09, 2025 01:44 PM Reporting Lab: [facility] [address] [facility] [address] Performing Lab: [address] [address] LACTIC ACID (STL-PB) 2.9 mmol/L H 0.5-2.0 Feb 09, 2025 11:52 AM [facility] BLOOD GAS PANEL ABG (L) VENOUS BLOOD Specimen Type : VENOUS BLOOD Comment: Test Performed by: [id number] Meter #: [id number] Ordering Provider: ANNIE ARGUETA Report Released Date/Time: Feb 09, 2025 11:53 AM Reporting Lab: [address] [address] Performing Lab: [address] [address] GEM PH 7.40 7.31-7.41 GEM PCO2 36 [...] 37.0 Feb 09, 2025 11:51 AM [facility] BRAIN NATRIURETIC PEPTIDE PLASMA Specimen Type : PLASMA No comment entered. Ordering Provider: CHINO LEONG I Report Released Date/Time: Feb 09, 2025 01:19 PM Reporting Lab: [address] [address] Performing Lab: [address] [address] BRAIN NATRIURETIC PEPTIDE 341.6 pg/mL H 0- 100 Feb 09, 2025 11:31 AM [facility] TROPONIN I (STL) PLASMA Specimen Type: PLASM A Comment: No hemolysis noted. Ordering Provider: KESHIA HUYNH Report Released Date/Time: Feb 09, 2025 11:30 AM Reporting Lab: [address] [address] Performing Lab: [address] [address] TROPONIN I (STL) 0.019 ng/mL 0-0.033 Feb 09, 2025 11:31 AM [facility] COMPREHENSIVE METABOLIC PANEL PLASMA Specimen Type: PLASMA Comment: No hemolysis noted. Ordering Provider: KESHIA HUYNH Report Released Date/Time: Feb 09, 2025 11:30 AM Reporting Lab: [address] [address] Performing Lab: [address] [address] CREATININE 0.96 mg/dL 0.7-1.3 UREA NITROGEN 16.8 [...] 80.4 >60 Feb 09, 2025 11:31 AM [facility] CBC BLOOD Specimen Type: BLOOD No comment entered. Ordering Provider: KESHIA HUYNH Report Released Date/Time: Feb 09, 2025 11:30 AM Reporting Lab: [address] [address] Performing Lab: [address] [place] [address] WBC 5.6 10*3/uL 3.6-11.2 RBC 3.71 10*6/uL [...] 20 Feb 09, 2025 11:20 AM [facility] GLUCOSE,BLOOD-poct (STL) BLOOD Specimen Type: BLOOD Comment: Test Performed by: [id number] Meter #: [id number] Ordering Provider: ANNIE ARGUETA Report Released Date/Time: Feb 09, 2025 11:22 AM Reporting Lab: [address] [address] Performing Lab: [address] [address] GLUCOSE,BLOOD-poct (STL) 161 mg/dL H 72-99 Social [...] AM VA-TOBACCO NEVER U SED OTHER TYPE [facility] Tobacco Use History This section includes a history of the smoking, or tobacco-related health factors, that were collected on or before the date of the Encounter. The data comes from the [place] facility where the Encounter took place. Date/Time Smoking Status/Tobacco Use Comment F jose Jun 10, 2024 11:21 AM VA-TOBACCO USE FOR HANK CIGARETTES [facility] Radiology Reports: +/- 30 days of [...] EXTREMITY VEINS BILAT (DVT): JOSE MARIA WHITE [id number] -1945 M Exm Date: FEB 10, 2025@11:29 Req Phys: JESSE BURGOS Pat Loc: 6N S OE-JESSICA/02-10-2025@13:14 Img Loc: JESSICA-ULTRASOUND JESSICA Service: [id number] SERVICE [address] [address] (Case [id number] COMPLETE) US EXTREMITY VEINS BILAT (DVT) (US Detailed) CPT:13721 Reason for Study: dx with PE Clinical History: Report Status: Verified Date Reported: FEB 10, 2025 Date Verified: FEB 10, 2025 Enterprise Application Administrator E-Sig:/ES/David Pastrana MD Report: CASE #: [id number] DATE:02/10/2025 12:51 PM CLINICAL HISTORY:dx with PE [...] verification. Dictated by Chastity Mantilla M.D. (Diagnostic Sustainability Consultant). IDavid, have reviewed the images and report and concur with these findings. Primary Interpreting Staff: David Pastrana MD, Radiologist (Enterprise Application Administrator) Primary Interpreting Resident: Chastity Mantilla MD, Resident Physician /DAVID WILCOX [facility] Feb 09, 2025 03:[address] PE CHEST W/3D: JOSE MARIA WHITE [id number] -1945 M Ex Date: FEB 09, 2025@15:10 Req Phys: CHINO LEONG I Pat Loc: 6N S -JESSICA/02-09-2025@16:39 Img Loc: JESSICA-CT IMAGING Service: Unknown [address] [address] (Case [id number] COMPLETE) CT THORAX W/CONT (PE) (CT Detailed) CPT:85876 Contrast Media : unspecified contrast media Reason for Study: syncope, abormanl CXR Clinical History: Responsible Attending: Mariam Attending Contact Number: [phone] Resident Contact Number: syncope, abormanl CXR Allergies listed in CPRS chart: PENICILLIN, TETRACYCLINE, NEOSPORIN, CELEBREX, SIMVASTATIN Creatinine: CREATININE 0.96 mg/dL 02/09/2025 11:31 /eGFR: STL EGFR (within one year). CREATININE 0.96 mg/dL (02/09/25 11:31) Wt: 273.5 lb [124.06 kg] (09/10/2023 13:16) History of: Renal failure, chronic or acute renal disease: NO Report Status: Verified Date Reported: FEB 09, 2025 Date Verified: FEB 09, 2025 Enterprise Application Administrator E-Sig:/ES/REA MARLEY Report: CASE #: [id number] DATE:02/09/2025 4:08 PM CLINICAL HISTORY:syncope, abormanl CXR [...] confirmation. Dictated by Jamal Chiu M.D. (Diagnostic Sustainability Consultant). I, Rea Marley, have reviewed the images and report and concur with these findings. Primary Interpreting Staff: REA MARLEY, Staff Physician (Enterprise Application Administrator) Primary Interpreting Resident: JAMAL CHIU, Resident Physician /REA [facility] Feb 09, 2025 01:[address] HEAD W/O CONT: JOSE MARIA WHITE [id number] -1945 M Exm Date: FEB 09, 2025@13:01 Req Phys: CHINO LEONG Loc: JESSICA-EMERGENCY DEPT 2ND SHIFT (R Img Loc: JESSICA-CT IMAGING JESSICA Service: Unknown [facility] [address] [place] [address] (Case [id number] COMPLETE) CT HEAD W/O CONT (CT Detailed) CPT:80127 Reason for Study: syncopal episode Clinical History: Responsible Attending: Mariam Attending Contact Number: [phone] Resident Contact Number: syncopal episode Allergies listed in CPRS chart: PENICILLIN, TETRACYCLINE, NEOSPORIN, CELEBREX, SIMVASTATIN Creatinine: CREATININE 0.90 mg/dL 08/07/2024 14:00 /eGFR: STL EGFR (within one year). CREATININE 0.90 mg/dL (08/07/24 14:00) Wt: 273.5 lb [124.06 kg] (09/10/2023 13:16) History of: Renal failure, chronic or acute renal disease: NO Report Status: Verified Date Reported: FEB 09, 2025 Date Verified: FEB 09, 2025 Enterprise Application Administrator E-Sig:/ES/REA MARLEY Report: CASE #: [id number] DATE:02/09/2025 1:35 PM CLINICAL HISTORY:syncopal episode TECHNIQUE: [...] process. Dictated by Jamal Chiu M.D. (Diagnostic Sustainability Consultant). IRea, have reviewed the images and report and concur with these findings. Primary Interpreting Staff: REA MARLEY, Staff Physician (Enterprise Application Administrator) Primary Interpreting Resident: JAMAL CHIU Resident Physician /REA HOPE [facility] Feb 09, 2025 11:32 AM CHEST PORTABLE: JOSE MARIA WHITE [id number] -1945 M Exm Date: FEB 09, 2025@11:32 Req Phys: STACEYCASKESHIA Loc: -EMERGENCY DEPT 2ND SHIFT (R Img Loc: -MAIN RADIOLOGY SUITE Service: [facility], [facility]IS[facility] [address] [place] [address] (Case [id number] COMPLETE) CHEST PORTABLE (RAD Detailed) CPT:94267 Proc Modifiers : Portable Reason for Study: hypotension Clinical History: Report Status: Verified Date Reported: FEB 09, 2025 Date Verified: FEB 09, 2025 Enterprise Application Administrator E-Sig:/ES/David Pastrana MD Report: CASE [id number]. AP portable view chest. COMPARISON: FINDINGS: Bilateral [...] effusion. Dictated by Jamal Chiu M.D. (Diagnostic Sustainability Consultant). I, David Pastrana, have reviewed the images and report and concur with these findings. Primary Interpreting Staff: David Pastrana MD, Radiologist (Enterprise Application Administrator) Primary Interpreting Resident: Resident HAL Physician /DAVID WADE [facility] Pathology Reports: +/- 30 days of [...] the Encounter. The data comes from all [facility] facilities. Date/Time Pathology Report Provider Source Feb 09, 2025 12:20 PM LR MICROBIOLOGY RE PORT: Accession [UID]: [id number] [[id number]] Received: Feb 09, 2025@12:29 Collection sample: B D BLD. BOTTLE Collection date: Feb 09, 2025 12:20 Site/Specimen: BLOOD Provider: ANNIE ARGUETA Test(s) ordered: BLOOD CULT (SET 1)............ completed: Feb 15, 2025 12:44 * BACTERIOLOGY FINAL REPORT => Feb 15, 2025 12:46 TECH CODE: [id number] Bacteriology Remark(s): 02/10/25 [facility] CULTURE IS NEGATIVE TO DATE, ALL POSITIVES ARE ROUTINELY CALLED. Culture shows NO GROWTH IN 6 DAYS. 02/15/25 CED =--=--=--=--=--=--=--=--=--=- -=--=--=--=--=--=--=--=--=--= --=--=--=--=--=--=-- Performing Laboratory: Bacteriology Report Performed By: [address] CLIA# [id number] [address] [facility] [address] [place] [address] Bact Report Remark Performed By: [facility] [address] [facility] CLIA# [id number] [address] [facility] [address] [place] [address] [facility] Feb 09, 2025 12:15 PM LR MICROBIOLOGY RE PORT: Accession [UID]: [id number] [[id number]] Received: Feb 09, 2025@12:29 Collection sample: B D BLD. BOTTLE (SET 2)Collection date: Feb 09, 2025 12:15 Site/Specimen: BLOOD Provider: ANNIE ARGUETA T Test(s) ordered: BLOOD CULT (SET 2)............ completed: Feb 15, 2025 12:45 * BACTERIOLOGY FINAL REPORT => Feb 15, 2025 12:46 TECH CODE: [id number] Bacteriology Remark(s): 02/10/25 [facility] CULTURE IS NEGATIVE TO DATE, ALL POSITIVES ARE ROUTINELY CALLED. Culture shows NO GROWTH IN 6 DAYS. 02/15/25 CED =--=--=--=--=--=--=--=--=--=- -=--=--=--=--=--=--=--=--=--= --=--=--=--=--=--=-- Performing Laboratory: Bacteriology Report Performed By: [address] CLIA# [id number] [address] [place] [address] Bact Report Remark Performed By: [address] CLIA# [id number] [address] [place] [address] Encounter Notes: All associated encounter notes This section contains the clinical notes associated to the Encounter. Date/Time Encounter Note(s) Provider Source Feb 01, 2025 09:13 AM ADMINISTRATIVE NOT E: LOCAL TITLE: ADMINISTRATIVE COMMUNITY CARE REQUEST STL STANDARD TITLE: ADMINISTRATIVE NOTE DATE OF NOTE: FEB 01, 2025@09:13 ENTRY DATE: FEB 01, 2025@09:13:34 AUTHOR: JUANITA MOTT EXP COSIGNER: URGENCY: STATUS: COMPLETED [facility] contacted [facility] team w/ request for new services from a hospitalization. Forwarded the request to PCP/CM for review/approval for new referral. /cas/ JUANITA MOTT ADVANCED OVERLOCK HEMMER Signed: 02/01/2025 09:15 Receipt Acknowledged By: 02/01/2025 11:41 /es/ CARLOS ESQUIVEL M.D. STAFF PHYSICIAN ECRS 02/04/2025 11:02 /es/ GAUTAM CAMERON RN MSN REGISTERED NURSE for JUANITA BYRD [facility]
--- OUTSIDE RECORDS SUMMARY | 2025-02-07 08:52 | XMS_ITS | Encounter Summary ---
Author Name [facility] ([place] Organization [facility] ([place]) Address [address] [place] [address] Care Team Providers Care Historiography Professor Name Role Phone GRACE QUINN Primary [...] Medina's Name Patient's Relationship to Policy Medina [facility] MEDICARE SUPPLEMEN SHEILA PLANF Mar 25, 2016 PLAN [id number] [phone] [id number] ISMAELTESS JOSE MARIA PATIENT [facility] MEDICARE SUPPLEMEN SHEILA PLANF Oct 23, 2010 PLANF [id number] [phone] JOSE MARIA WHITE PATIENT [facility] MEDICARE SUPPLEMEN SHEILA PLANF Mar 25, 2016 PLANF [id number] JOSE MARIA WHITEP MED SUPP MEDICARE SUPPLEMEN SHEILA PLANF Oct 23, 2010 PLANF [id number] [phone] JOSE MARIA WHITEP [facility] (WNR) MEDICARE ADVANTAGE [facility] (WNR) July 24, 2023 [id number] [phone] JOSE MARIA WHITE PATIENT MEDICARE (WNR) MEDICARE (M) PART A July 24, 2003 PART A [id number] JOSE MARIA WHITE PATIENT MEDICARE (WNR) MEDICARE (M) PART B July 24, 2003 PART B [id number] JOSE MARIA WHITE PATIENT MEDICARE (WNR) MEDICARE (M) PART A July 24, 2003 PART A [id number] JOSE MARIA WHITE PATIENT [facility] (WNR) MEDICARE ADVANTAGE [facility] (WNR) Mar 25, 2024 [id number] [phone] JOSE MARIA WHITE [facility] (WNR) MEDICARE ADVANTAGE [facility] (WNR) Mar 25, 2024 [id number] [phone] JOSE MARIA WHITE PATIENT Selected Encounter This section includes the information on record at [place] for the Encounter. Date/Time Encounter Type Encounter Description Reason Provider Source Feb 07, 2025 02:52 PM Outpatient Encounter GENERAL INTERNAL MEDICINE CARLOS ESQUIVEL Encounter Template Text not used by [place] Plan of Treatment: Future Appointments (+ 6 months) and Future Tests (+/- 45 days) The Plan of Treatment section includes future care activities for the patient from all [place] treatmentfacilities. This section includes future appointments and future orders which are active, pending or scheduled. Future Appointments This section includes appointments that were scheduled to occur 6 months from the date of the Encounter, up to a maximum of 20 appointments. The data comes from all [place] treatment facilities. Appointment Date/Time Appointment Type Appointme nt Facility Name Feb 09, 2025 11:00 AM AMBULATORY - MEDICINE [facility] Feb 09, 2025 11:18 AM AMBULATORY - MEDICINE [facility] Feb 12, 2025 01:30 PM AMBULATORY - NONE [facility] Mar 15, 2025 01:30 PM AMBULATORY - NONE [facility]IE Sauceda [facility] Mar 31, 2025 10:00 AM AMBULATORY - MEDICINE [facility] Mar 31, 2025 12:00 PM AMBULATORY - SURGERY Kacey STRAUSS [facility] Mar 31, 2025 02:30 PM AMBULATORY - MEDICINE [facility] Apr 09, 2025 11:00 AM AMBULATORY - MEDICINE [facility] May 03, 2025 03:00 PM AMBULATORY - NONE [facility] Active, Pending, and Scheduled Orders This section includes a listing of several types of active, pending, and scheduled orders, including clinic medications orders, diagnostic test orders, procedure orders and consult orders; where the start date of the order is 45 days before the date of the Encounter or 45 days after the date of theEncounter. The data comes from all [place] treatment facilities. 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 [facility] Cons Inventory Control Clerk's Choice [facility] Jan 15, 2025 12:00 AM Laboratory - Chemistry Order CELIAC DISEASE PANEL (STL-MRN) GOLD/RED SST SERUM SP ONCE [facility] Jan 15, 2025 12:00 AM Laboratory - Chemistry Order IRON/TIBC PROFILE GOLD/RED SST SERUM SP [facility] Jan 15, 2025 12:00 AM Laboratory - Chemistry Order ANTI-NUCLEAR ANTIBODY (STL-PB) GOLD/RED SST SERUM SP [facility] Jan 15, 2025 12:00 AM Laboratory - Chemistry Order ANTI-MITOCHONDRIAL AB (STL-PB) GOLD/RED SST SERUM SP [facility] Jan 15, 2025 12:00 AM Laboratory - Chemistry Order ACTIN (SMOOTHMUSCLE) ANTIBODY IGG GOLD/RED SST SERUM [facility] Jan 15, 2025 12:00 AM Laboratory - Chemistry Order IGG (STL) GOLD/RED SST SERUM SP [facility] Jan 15, 2025 12:00 AM Laboratory - Chemistry Order HEPATITIS B SURFACE AB PNL GOLD/RED SST SERUM SP [facility] Jan 15, 2025 12:00 AM Laboratory - Chemistry Order HEP HB S Ag (AUSRIA) (STL) GOLD/RED SST SERUM SP [facility] Jan 15, 2025 12:00 AM Laboratory - Chemistry Order HEP B CORE AB TOTAL. (STL) GOLD/RED SST SERUM [facility] Jan 15, 2025 12:00 AM Laboratory - Chemistry Order HEPATITIS A IGG AB (STL) GOLD/RED SST SERUM [facility] Jan 15, 2025 12:00 AM Laboratory - Chemistry Order ALPHA-1 ANTITRYPSIN (STL-PB) GOLD/RED SST SERUM [facility] Jan 15, 2025 12:00 AM Laboratory - Chemistry Order HEPATIC FUNTION PANEL (STL) GREEN LI/HEP BLD/PLAS PLASMA [facility] Jan 15, 2025 12:00 AM Laboratory - Chemistry Order HEP C Ab HCV Ab (STL) GOLD/RED SST SERUM SP [facility] Jan 15, 2025 12:00 AM Laboratory - Chemistry Order FERRITIN GOLD/RED SST SERUM [facility] Feb 09, 2025 12:18 PM Laboratory - Chemistry Order URINALYSIS W/ CX REFLEX (STL-PB) URN - CLEAN CATCH URINE WC ONCE [facility] Mar 01, 2025 12:00 AM Laboratory - Microbiology Order C&S URINE URINE HOLT WC ONCE [facility] Mar 01, 2025 12:00 AM Laboratory - Chemistry Order OCCULT BLOOD FIT X1 SCREEN STOOL FECES SP [facility] Mar 01, 2025 12:00 AM Laboratory - Chemistry Order ANTITHROMBIN III ACTIVITY BLUE,LIGHT(SODIUM CITRATE) PLASMA SP [facility] Mar 01, 2025 09:36 AM Consult Order EYE CLINIC OUTPT JESSICA Cons Inventory Control Clerk's Choice [facility] Mar 01, 2025 09:36 AM Consult Order VASCULAR LAB OUTPT ST[facility] Cons Inventory Control Clerk's Choice [facility] Mar 01, 2025 09:36 AM Consult Order CARDIOLOGY OUTPT JESSICA Cons Inventory Control Clerk's Choice [facility] Mar 08, 2025 12:00 PM Laboratory - Chemistry Order FACTOR V(LEIDEN)MUTATION ANALYSIS BLOOD SP [facility] Mar 09, 2025 12:00 AM Laboratory - Chemistry Order URINE DRUG SCREEN (STL) URINE YELLOW SP [facility] Mar 15, 2025 12:00 AM Laboratory - Chemistry Order LACTOFERRIN,STOOL (STL-MA-PB) STOOL FECES SP [facility] Mar 15, 2025 12:00 AM Laboratory - Chemistry Order HEP C Ab HCV Ab (STL) GOLD/RED SST SERUM SP [facility] Mar 15, 2025 12:00 AM Laboratory - Chemistry Order ANTI-NUCLEAR ANTIBODY (STL-PB) GOLD/RED SST SERUM [facility] Mar 15, 2025 12:00 AM Laboratory - Chemistry Order ANTI-MITOCHONDRIAL AB (STL-PB) GOLD/RED SST SERUM SP [facility] Mar 15, 2025 12:00 AM Laboratory - Chemistry Order ACTIN (SMOOTHMUSCLE) ANTIBODY IGG GOLD/RED SST SERUM SP [facility] Mar 15, 2025 12:00 AM Laboratory - Chemistry Order HEP HB S Ag (AUSRIA) (STL) GOLD/RED SST SERUM SP [facility] Mar 15, 2025 12:00 AM Laboratory - Chemistry Order IGG (STL) GOLD/RED SST SERUM SP [facility] Mar 15, 2025 12:00 AM Laboratory - Chemistry Order HEPATITIS B SURFACE AB PNL GOLD/RED SST SERUM SP [facility] Mar 15, 2025 12:00 AM Laboratory - Chemistry Order HEP B CORE AB TOTAL. (STL) GOLD/RED SST SERUM SP [facility] Mar 15, 2025 12:00 AM Laboratory - Chemistry Order HEPATITIS A IGG AB (STL) GOLD/RED SST SERUM SP [facility] Mar 15, 2025 12:00 AM Laboratory - Chemistry Order CELIAC DISEASE PANEL (STL-MRN) GOLD/RED SST SERUM SP ONCE [facility] Mar 15, 2025 12:00 AM Laboratory - Chemistry Order ALPHA-1 ANTITRYPSIN (STL-PB) GOLD/RED SST SERUM SP [facility] Mar 15, 2025 12:00 AM Imaging - General Radiology Order SPINE LUMBOSACRAL 2 OR 3 VIEWS [facility] Mar 15, 2025 10:49 AM Laboratory - Chemistry Order SHIGA TOXIN 1 STOOL FECES WC ONCE [facility] Mar 15, 2025 10:49 AM Laboratory - Chemistry Order SHIGA TOXIN 2 STOOL FECES WC ONCE [facility] Mar 15, 2025 10:49 AM Laboratory - Microbiology Order C&S STOOL STOOL FECES WC [facility] Mar 15, 2025 10:49 AM Laboratory - Chemistry Order C DIFF EPI PCR PNL STOOL, PARA-PACK CLEAN FECES [facility] Mar 15, 2025 10:49 AM Laboratory - Microbiology Order PARASITE EXAM (STL) STOOL, PARA-PACK CLEAN FECES [facility] Mar 15, 2025 10:49 AM Consult Order GI DIAGNOSTIC COLONOSCOPY OUTPATIENT JESSICA Cons Inventory Control Clerk's Choice [facility] Mar 19, 2025 12:00 AM Laboratory - Chemistry Order PROTEIN C ACTIVITY(STL-MA-PB) BLUE,LIGHT(SODIUM CITRATE) PLASMA [facility] Lab Results: +/- 30 days [...] Unit Interpretation Reference Range Specimen Type Comment Mar 08, 2025 12:00 PM [facility] PROTHROMBIN GENE ANALYSIS FACTOR II MUT BLOOD Specimen Type: BLOOD Comment: RESULT: [id number] VARIANT NOT DETECTED INTERPRETATION: This individual is negative (normal) for the [id number] variant in the Prothrombin/Fact or II gene. Increased risk of thrombophilia can be caused by a variety of genetic and non-genetic factors not screened for by this assay. Ordering Provider: STU AFBIAN Report Released Date/Time: Mar 01, 2025 09:36 AM Reporting Lab: [facility] [address] [address] Performing Lab: [address] PROTHROMBIN GENE ANALYSIS FACTOR II MUT NEG Mar 08, 2025 12:00 PM [facility] PROTEIN S ACTIVITY(STL-MA-PB) PLASMA Specimen Type: PLASMA Comment: [facility] [employer] [facility], [address] [place] [address] Juan Hassan M.D., Ph.D., Director of Laboratories , [facility] [id number] Ordering Provider: STU FABIAN Report Released Date/Time: Mar 01, 2025 09:36 AM Reporting Lab: [address] [address] Performing Lab: [address] PROTEIN S ACTIVITY(STL-MA-PB) 94 70 -150 Mar 08, 2025 12:00 PM [facility] PROTEIN URINE URINE Specimen Type: URINE No comment entered. Ordering Provider: STU FABIAN Report Released Date/Time: Mar 01, 2025 09:36 AM Reporting Lab: [address] [address] Performing Lab: [address] [address] PROTEIN URINE 20.5 mg/dL Mar 08, 2025 12:00 PM [facility] CREATININE URINE/OTHERS URINE Specimen Type: URINE No comment entered. Ordering Provider: STU FABIAN Report Released Date/Time: Mar 01, 2025 09:36 AM Reporting Lab: [address] [address] Performing Lab: [address] [address] CREATININE URINE/OTHERS 249.6 mg/dL H 63-1 66 Mar 08, 2025 12:00 PM [facility] MICRAL/CREAT PROFILE (STL) URINE Specimen Typ e: URINE No comment entered. Ordering Provider: STU FABIAN Report Released Date/Time: Mar 01, 2025 09:36 AM Reporting Lab: [address] [address] Performing Lab: [address] [address] URINE ALBUMIN (PB-STL) 33.1 mg/L uACR (STL) 13 mg/g 0-29 CREATININE URINE/OTHERS 251.3 mg/dL H 63-1 66 Mar 08, 2025 12:00 PM [facility] APTT PLASMA Specimen Type: PLASM A No comment entered. Ordering Provider: STU FABIAN Report Released Date/Time: Mar 01, 2025 09:36 AM Reporting Lab: [address] [address] Performing Lab: [address] [address] APTT 31.4 s 26.7-39.9 Mar 08, 2025 12:00 PM [facility] PT/INR NEW (STL-MA) PLASMA Specimen Type: PLAS MA No comment entered. Ordering Provider: STU FABIAN Report Released Date/Time: Mar 01, 2025 09:36 AM Reporting Lab: [address] [address] Performing Lab: [address] [address] PROTIME 15.6 s H 9.4-12.5 INR VALUE 1.4 {INR} Mar 08, 2025 12:00 PM [facility] HBPC GLUCOSE PLASMA Specimen Type: PLASM A No comment entered. Ordering Provider: STU FABIAN Report Released Date/Time: Mar 01, 2025 09:36 AM Reporting Lab: [address] [address] Performing Lab: [address] [place] [address] HBPC GLUCOSE 134 mg/dL H 72-99 Mar 08, 2025 12:00 PM [facility] TSH (MA-PB) SERUM Specimen Type: SERUM No comment entered. Ordering Provider: STU FABIAN Report Released Date/Time: Mar 01, 2025 09:36 AM Reporting Lab: [address] [address] Performing Lab: [address] [address] TSH 0.702 u[IU]/mL 0.47-5 Mar 08, 2025 12:00 PM [facility] B12 SERUM Specimen Type: SERUM No comment entered. Ordering Provider: STU FABIAN Report Released Date/Time: Mar 01, 2025 09:36 AM Reporting Lab: [address] [address] Performing Lab: [address] [address] B12 592 pg/mL 213-816 Mar 08, 2025 12:00 PM [facility] HBPC CMP PLASMA Specimen Type: PLASM A Comment: No hemolysis noted. Ordering Provider: STU FABIAN Report Released Date/Time: Mar 01, 2025 09:36 AM Reporting Lab: [address] [address] Performing Lab: [address] [address] CREATININE 0.78 mg/dL 0.7-1.3 UREA NITROGEN 15.6 mg/dL 9.0-25.0 SODIUM 140 meq/L 136-145 POTASSIUM 4.2 meq/L 3.5-5 CHLORIDE 108 meq/L H 98-107 CARBON DIOXIDE 24 meq/L 22-31 CALCIUM 8.4 mg/dL 8.4-10.4 PROTEIN 5.8 g/dL L 6-8.6 ALBUMIN 2.9 g/dL L 3.4-5 TOTAL BILIRUBIN 0.5 mg/dL 0.2-1.2 ALKALINE PHOSPHATASE 109 U/L 40-150 AST/SGOT 29 U/L 5-34 ALT/SGPT 11 U/L 8-40 EGFR (CKD-EPI 2020) 90.2 >60 Mar 08, 2025 12:00 PM [facility] FOLATE (STL-MA) SERUM Specimen Type: SERUM No comment entered. Ordering Provider: STU FABIAN Report Released Date/Time: Mar 01, 2025 09:36 AM Reporting Lab: [facility] [address] [facility] [address] Performing Lab: [facility] [address] [facility] [address] FOLATE ([facility]) 4.8 ng/mL L 7-20 Mar 08, 2025 12:00 PM [facility] VITAMIN D, 25-HYDROXY SERUM Specimen Type: SE RUM No comment entered. Ordering Provider: SUT FABIAN Report Released Date/Time: Mar 01, 2025 09:36 AM Reporting Lab: [facility] [address] [facility] [address] Performing Lab: [facility] [address] [facility] [address] VITAMIN D, 25-HYDROXY 28.3 ng/mL L 30-96 Mar 08, 2025 12:00 PM [facility] HGA1C BLOOD Specimen Type: BLOOD No comment entered. Ordering Provider: STU FABIAN Report Released Date/Time: Mar 01, 2025 09:36 AM Reporting Lab: [facility] [address] [facility] [address] Performing Lab: [facility] [address] [facility] [address] HGA1C 6.6 Mar 08, 2025 12:00 PM [facility] LIPID PANEL (STL) PLASMA Specimen Type: PLASM A Comment: No hemolysis noted. Ordering Provider: STU FABIAN Report Released Date/Time: Mar 01, 2025 09:36 AM Reporting Lab: [facility] [address] [facility] [address] Performing Lab: [facility] [address] [facility] [address] CHOLESTEROL 136 mg/dL 0-200 TRIGLYCERIDE 138 mg/dL 0-150 CALCULATED LDL 70 mg/dL HDL(New) 38 mg/dL L >40 Mar 08, 2025 12:00 PM [facility] CBC BLOOD Specimen Type: BLOOD Comment: ~THIS TEST SHOULD ONLY BE USED BY [facility] Ordering Provider: STU FABIAN Report Released Date/Time: Mar 01, 2025 09:36 AM Reporting Lab: [place] [id number] [facility] [address] Performing Lab: [address] [address] WBC 3.3 10*3/uL L 3.6-11.2 RBC 3.50 10*6/uL L 4.10-5.70 HGB 11.0 g/dL L 13.1-16.8 HCT 34.7 L 38.2-48.4 MCV 99.1 fL 80.0-100.0 MCH 31.4 pg 27.0-34.0 MCHC 31.7 g/dL L 33.0-36.0 PLT 103 10*3/uL L 150-400 MPV 14.0 fL H 7.5-11.2 RDW 15.9 H 11.8-15.1 POIKILOCYTOSIS 1+ PAPPENHEIMER BODIES 0 LYMPHOCYTES, AUTO % 27 MONOCYTES, AUTO % 12 NEUTROPHILS, AUTO % 54 EOSINOPHILS, AUTO % 5 BASOPHILS, AUTO % 1 LYMPHOCYTES, ABSOLUTE 0.88 10*3/uL 0.77- 4.50 MONOCYTES, ABSOLUTE 0.40 10*3/uL 0.19-0. 80 NEUTROPHILS, ABSOLUTE 1.79 10*3/uL L 2.10- 8.00 EOSINOPHILS, ABSOLUTE 0.17 10*3/uL 0.00- 0.60 BASOPHILS, ABSOLUTE 0.03 10*3/uL 0.00-0. 20 OVALOCYTES 1+ TEARDROPS 1+ PLT EST-CV DECREASED ADEQUATE SCRNPERF YES Mar 08, 2025 12:00 PM [facility] CYSTATIN C EGFR PANELS (STL-PB-KS) PLASMA Spec imen Type: PLASMA Comment: Choice of which of the reported eGFR values to use depends on the clinical situation. For example, for patients with severe muscle wasting or reduced muscle mass, eGFR calculated using the 2012 cystatin equation may be preferred. Ordering Provider: STU FABIAN Report Released Date/Time: Mar 01, 2025 09:36 AM Reporting Lab: [address] [address] Performing Lab: [address] [address] CYSTATIN C 1.66 mg/L 0.57-1.80 CKD-EPI CYSTATIN C (2011) 36.6 >60 CKD-EPI CREAT-CYSC (2020) 57.4 >60 CREATININE (STL) 0.76 mg/dL 0.7-1.3 Mar 08, 2025 12:00 PM [facility] IRON/TIBC PROFILE SERUM Specimen Type: SERUM No comment entered. Ordering Provider: STU FABIAN Report Released Date/Time: Mar 01, 2025 09:36 AM Reporting Lab: [address] [address] Performing Lab: [address] [address] TIBC 190 ug/dL L 250-450 TRANSFERRIN 152 mg/dL L 163-344 IRON SATURATION 25 20-50 IRON 47 ug/dL L 65-175 Mar 08, 2025 12:00 PM [facility] FERRITIN SERUM Specimen Type: SERUM No comment entered. Ordering Provider: STU FABIAN Report Released Date/Time: Mar 01, 2025 09:36 AM Reporting Lab: [address] [address] Performing Lab: [address] [address] FERRITIN 61.70 ng/mL 22-275 Mar 08, 2025 12:00 PM [facility] URINALYSIS W/O REFLEX CX (STL-PB) URINE Speci men Type: URINE No comment entered. Ordering Provider: STU FABIAN Report Released Date/Time: Mar 01, 2025 09:36 AM Reporting Lab: [place] [address] Performing Lab: [address] [address] URINE COLOR Yellow Yellow U.BILIRUBIN Negative mg/dL Negative U.PH 5.5 5.0-8.0 URINE WBC/HPF 4 /[HPF] 0-5 URINE RBC/HPF 4 /[HPF] 0-5 APPEARANCE Clear Clear U.NITRITE Negative mg/dL Negative SQUAMOUS EPITH. 1 /[HPF] 0-5 MUCUS FEW /[LPF] Negative-Rare CA OXYLATE CRYSTALS OCC /[HPF] Negative- Rare URN.GLUCOSE Normal mg/dL Negative URN.PROTEIN 20 mg/dL H URN.UROBILINOGEN Normal mg/dL Normal URN.BLOOD Negative mg/dL Negative-Trace URN.KETONES Trace mg/dL Negative-Trace URN.LEUK.EST. Negative mg/dL Negative-Tr kaylee URN.SPECIFIC GRAVITY 1.038 H Mar 08, 2025 12:00 PM [facility] RETICULOCYTE PANEL BLOOD Specimen Type: BLOOD Comment: ~THIS TEST SHOULD ONLY BE USED BY [facility] Ordering Provider: STU FABIAN Report Released Date/Time: Mar 01, 2025 09:36 AM Reporting Lab: [place] [address] Performing Lab: [place] [address] RETIC RATIO 1.65 0.50-2.30 IRF 18.2 H 2.3-13.4 RETICULOCYTE HEMOGLOBIN EQUIVALENT 35.0 pg 28.2-36.6 RETIC COUNT,ABS 0.058 10*6/uL 0.022-0.10 1 Feb 10, 2025 12:51 PM [facility] GLUCOSE,BLOOD-poct (STL) BLOOD Specimen Type: BLOOD Comment: Test Performed by: [id number] Meter #: [id number] Ordering Provider: ANN BEASLEY Report Released Date/Time: Feb 10, 2025 12:53 PM Reporting Lab: [place] [address] [facility] [address] Performing Lab: [place] [address] [facility] [address] GLUCOSE,BLOOD-poct (STL) 199 mg/dL H Feb 10, 2025 05:13 AM [facility] GLUCOSE,BLOOD-poct (STL) BLOOD Specimen Type: BLOOD Comment: Test Performed by: [id number] Meter #: [id number] Ordering Provider: ANN BEASLEY Report Released Date/Time: Feb 10, 2025 05:37 AM Reporting Lab: [place] [address] [facility] [address] Performing Lab: [place] [address] [facility] [address] GLUCOSE,BLOOD-poct (STL) 95 mg/dL Feb 09, 2025 11:20 PM [facility] APTT PLASMA Specimen Type: PLASM A Comment: ~HEP BOLUS - CALL RESULTS Ordering Provider: JESSE BURGOS Report Released Date/Time: Feb 09, 2025 04:35 PM Reporting Lab: [place] [address] [facility] [address] Performing Lab: [place] [address] [facility] [address] APTT 29.9 s 26.7-39.9 Feb 09, 2025 08:35 PM [facility] GLUCOSE,BLOOD-poct (STL) BLOOD Specimen Type: BLOOD Comment: Test Performed by: [id number] Meter #: [id number] Ordering Provider: ANN BEASLEY Report Released Date/Time: Feb 09, 2025 08:41 PM Reporting Lab: [address] [address] Performing Lab: [address] [address] GLUCOSE,BLOOD-poct (STL) 159 mg/dL H Feb 09, 2025 05:22 PM [facility] MRSA SURVL NARES DNA NARES Specimen [...] Feb 09, 2025 04:31 PM Reporting Lab: [address] [address] Performing Lab: [address] [address] MRSA SURVL NARES DNA Negative Negative Feb 09, 2025 05:00 PM [facility] APTT PLASMA Specimen Type: PLASM A Comment: ~HEP BOLUS-CALL RESULTS Ordering Provider: JESSE BURGOS Report Released Date/Time: Feb 09, 2025 04:35 PM Reporting Lab: [address] [address] Performing Lab: [address] [address] APTT 28.0 s 26.7-39.9 Feb 09, 2025 04:59 PM [facility] GLUCOSE,BLOOD-poct (STL) BLOOD Specimen Type: BLOOD Comment: Test Performed by: [id number] Meter #: [id number] Ordering Provider: ANN BEASLEY Report Released Date/Time: Feb 09, 2025 05:02 PM Reporting Lab: [address] [address] Performing Lab: [address] [address] GLUCOSE,BLOOD-poct (STL) 162 mg/dL H 72-99 Feb 09, 2025 01:55 PM [facility] LACTIC ACID (STL-PB) PLASMA Specimen Type: TAMARA SMA No comment entered. Ordering Provider: CHINO LEONG I Report Released Date/Time: Feb 09, 2025 01:44 PM Reporting Lab: [place] [address] Performing Lab: [place] [phone] LACTIC ACID (STL-PB) 2.9 mmol/L H 0.5-2.0 Feb 09, 2025 11:52 AM [facility] BLOOD GAS PANEL ABG (L) VENOUS BLOOD Specimen Type : VENOUS BLOOD Comment: Test Performed by: [id number] Meter #: [id number] Ordering Provider: ANNIE ARGUETA Report Released Date/Time: Feb 09, 2025 11:53 AM Reporting Lab: [place] [address] Performing Lab: [place] [address] GEM PH 7.40 7.31-7.41 GEM PCO2 36 [...] TEMP 37.0 Feb 09, 2025 11:51 AM [facility] BRAIN NATRIURETIC PEPTIDE PLASMA Specimen Type : PLASMA No comment entered. Ordering Provider: CHINO LEONG I Report Released Date/Time: Feb 09, 2025 01:19 PM Reporting Lab: [address] [address] Performing Lab: [address] [address] BRAIN NATRIURETIC PEPTIDE 341.6 pg/mL H 0- 100 Feb 09, 2025 11:31 AM [facility] TROPONIN I (STL) PLASMA Specimen Type: PLASM A Comment: No hemolysis noted. Ordering Provider: KESHIA HUYNH Report Released Date/Time: Feb 09, 2025 11:30 AM Reporting Lab: [address] [address] Performing Lab: [address] [address] TROPONIN I (STL) 0.019 ng/mL 0-0.033 Feb 09, 2025 11:31 AM [facility] COMPREHENSIVE METABOLIC PANEL PLASMA Specimen Type: PLASMA Comment: No hemolysis noted. Ordering Provider: KESHIA HUYNH Report Released Date/Time: Feb 09, 2025 11:30 AM Reporting Lab: [address] [address] Performing Lab: [address] [address] CREATININE 0.96 mg/dL 0.7-1.3 UREA NITROGEN 16.8 [...] 80.4 >60 Feb 09, 2025 11:31 AM [facility] CBC BLOOD Specimen Type: BLOOD No comment entered. Ordering Provider: KESHIA HUYNH Report Released Date/Time: Feb 09, 2025 11:30 AM Reporting Lab: [facility] [address] [facility] [address] Performing Lab: [address] [address] WBC 5.6 10*3/uL 3.6-11.2 RBC 3.71 10*6/uL [...] 0.00-0. 20 Feb 09, 2025 11:20 AM [facility] GLUCOSE,BLOOD-poct (STL) BLOOD Specimen Type: BLOOD Comment: Test Performed by: [id number] Meter #: [id number] Ordering Provider: ANNIE ARGUETA Report Released Date/Time: Feb 09, 2025 11:22 AM Reporting Lab: [facility] [address] [facility] [address] Performing Lab: [address] [address] GLUCOSE,BLOOD-poct (STL) 161 mg/dL H 72-99 Social History: Smoking Status (Most current) and Tobacco Use (All prior to encounter date) This section includes the most current, and the historical, smoking and tobacco- related health factors from the [place] facility where the Encounter took place. Current Smoking Status This section includes the most current smoking, or tobacco-related health factor, from the [place] facility where the Encounter took place. Date/Time Current Smoking Status Comment Facil ity Jun 10, 2024 11:21 AM VA-TOBACCO USE FOR HANK CIGARETTES [facility] Tobacco Use History This section includes a history of the smoking, or tobacco-related health factors, that were collected on or before the date of the Encounter. The data comes from the [place] facility where the Encounter took place. Date/Time Smoking Status/Tobacco Use Comment F jose Jun 10, 2024 11:21 AM VA-TOBACCO USE FOR HANK CIGARETTES [facility] Radiology Reports: +/- 30 days of the [...] the Encounter. The data comes from all [place] treatment facilities. Date/Time Radiology Report Provider Source Feb 10, 2025 11:29 AM US EXTREMITY VEINS BILAT (DVT): JOSE MARIA WHITE [id number] -1945 M Exm Date: FEB 10, 2025@11:29 Req Phys: JESSE BURGOS Pat Loc: 6N S OE-JESSICA/02-10-2025@13:14 Img Loc: JESSICA-ULTRASOUND JESSICA Service: [id number] [address] [address] (Case [id number] COMPLETE) US EXTREMITY VEINS BILAT (DVT) (US Detailed) CPT:02257 Reason for Study: dx with PE Clinical History: Report Status: Verified Date Reported: FEB 10, 2025 Date Verified: FEB 10, 2025 Surgical Services Assistant E-Sig:/ES/David Pastrana MD Report: CASE #: [id number] DATE:02/10/2025 12:51 PM CLINICAL HISTORY:dx with PE [...] verification. Dictated by Chastity Mantilla M.D. ([employer]). I, David Pastrana, have reviewed the images and report and concur with these findings. Primary Interpreting Staff: David Pastrana MD, Radiologist (Surgical Services Assistant) Primary Interpreting Resident: Chastity Mantilla MD, Resident Physician /DAVID WILCOX [facility] Feb 09, 2025 03:[address] PE CHEST W/3D: ISMAELJOSE MARIA PULIDO [id number] -1945 M Exm Date: FEB 09, 2025@15:10 Req Phys: CHINO LEONG I Pat Loc: 6N S OE-JESSICA/02-09-2025@16:39 Img Loc: JESSICA-CT IMAGING JESSICA Service: Unknown [facility], [facility] [address] [place] [address] (Case [id number] COMPLETE) CT THORAX W/CONT (PE) (CT Detailed) CPT:89153 Contrast Media : unspecified contrast media Reason for Study: syncope, abormanl CXR Clinical History: Responsible Attending: Mariam Attending Contact Number: [phone] Resident Contact Number: syncope, abormanl CXR Allergies listed in CPRS chart: PENICILLIN, TETRACYCLINE, NEOSPORIN, CELEBREX, SIMVASTATIN Creatinine: CREATININE 0.96 mg/dL 02/09/2025 11:31 /eGFR: STL EGFR (within one year). CREATININE 0.96 mg/dL (02/09/25 11:31) Wt: 273.5 lb [124.06 kg] (09/10/2023 13:16) History of: Renal failure, chronic or acute renal disease: NO Report Status: Verified Date Reported: FEB 09, 2025 Date Verified: FEB 09, 2025 Surgical Services Assistant E-Sig:/ES/REA MARLEY Report: CASE #: [id number] DATE:02/09/2025 4:08 PM CLINICAL HISTORY:syncope, abormanl CXR [...] confirmation. Dictated by Jamal Chiu M.D. ([employer]). I, Rea Marley, have reviewed the images and report and concur with these findings. Primary Interpreting Staff: REA MARLEY, Staff Physician (Surgical Services Assistant) Primary Interpreting Resident: JAMAL CHIU, Resident Physician /REA HOPE [facility] Feb 09, 2025 01:[address] HEAD W/O CONT: JOSE MARIA WHITE [id number] -1945 M Exm Date: FEB 09, 2025@13:01 Req Phys: CHINO LEONG I Pat Loc: JESSICA-EMERGENCY DEPT 2ND SHIFT (R Img Loc: JESSICA-CT IMAGING JESSICA Service: Unknown [facility], [facility] [address] [place] [address] (Case [id number] COMPLETE) CT HEAD W/O CONT (CT Detailed) CPT:03371 Reason for Study: syncopal episode Clinical History: Responsible Attending: Mariam Attending Contact Number: [id number] Resident Contact Number: syncopal episode Allergies listed in CPRS chart: PENICILLIN, TETRACYCLINE, NEOSPORIN, CELEBREX, SIMVASTATIN Creatinine: CREATININE 0.90 mg/dL 08/07/2024 14:00 /eGFR: STL EGFR (within one year). CREATININE 0.90 mg/dL (08/07/24 14:00) Wt: 273.5 lb [124.06 kg] (09/10/2023 13:16) History of: Renal failure, chronic or acute renal disease: NO Report Status: Verified Date Reported: FEB 09, 2025 Date Verified: FEB 09, 2025 Surgical Services Assistant E-Sig:/ES/REA MARLEY Report: CASE #: [id number] DATE:02/09/2025 1:35 PM CLINICAL HISTORY:syncopal episode TECHNIQUE: [...] process. Dictated by Jamal Chiu M.D. ([employer]). Rea Soni, have reviewed the images and report and concur with these findings. Primary Interpreting Staff: REA MARLEY, Staff Physician (Surgical Services Assistant) Primary Interpreting Resident: JAMAL CHIU, Resident Physician /REA HOPE [facility] Feb 09, 2025 11:32 AM CHEST PORTABLE: JOSE MARIA WHITE [id number] -1945 M Exm Date: FEB 09, 2025@11:32 Req Phys: LINOKESHIA Pat Loc: JESSICA-EMERGENCY DEPT 2ND SHIFT (R Img Loc: -MAIN RADIOLOGY SUITE Service: [facility], [facility] [address] [place] [address] (Case [id number] COMPLETE) CHEST PORTABLE (RAD Detailed) CPT:61378 Proc Modifiers : Portable Reason for Study: hypotension Clinical History: Report Status: Verified Date Reported: FEB 09, 2025 Date Verified: FEB 09, 2025 Surgical Services Assistant E-Sig:/ES/David Pastrana MD Report: CASE [id number]. AP portable view chest. COMPARISON: FINDINGS: Bilateral [...] effusion. Dictated by Jamal Chiu M.D. ([employer]). David Soni, have reviewed the images and report and concur with these findings. Primary Interpreting Staff: David Pastrana MD, Radiologist (Surgical Services Assistant) Primary Interpreting Resident: Resident HAL Physician /DAVID WADE [facility] Pathology Reports: +/- 30 days [...] the Encounter. The data comes from all [place] treatment facilities. Date/Time Pathology Report Provider Source Feb 09, 2025 12:20 PM LR MICROBIOLOGY RE PORT: Accession [UID]: [id number] [[id number]] Received: Feb 09, 2025@12:29 Collection sample: B D BLD. BOTTLE Collection date: Feb 09, 2025 12:20 Site/Specimen: BLOOD Provider: ANNIE ARGUETA Test(s) ordered: BLOOD CULT (SET 1)............ completed: Feb 15, 2025 12:44 * BACTERIOLOGY FINAL REPORT => Feb 15, 2025 12:46 TECH CODE: [id number] Bacteriology Remark(s): 02/10/25 CMG CULTURE IS NEGATIVE TO DATE, ALL POSITIVES ARE ROUTINELY CALLED. Culture shows NO GROWTH IN 6 DAYS. 02/15/25 CED =--=--=--=--=--=--=--=--=--=- -=--=--=--=--=--=--=--=--=--= --=--=--=--=--=--=-- Performing Laboratory: Bacteriology Report [facility] [address] [place] [address] CLIA# [id number] [address] [facility] [address] [place] [address] Bact Report Remark Performed By: [facility] [address] [facility] CLIA# [id number] [address] [facility] [address] [place] [address] [facility] Feb 09, 2025 12:15 PM LR MICROBIOLOGY RE PORT: Accession [UID]: [id number] [[id number]] Received: Feb 09, 2025@12:29 Collection sample: B D BLD. BOTTLE (SET 2)Collection date: Feb 09, 2025 12:15 Site/Specimen: BLOOD Provider: ANNIE ARGUETA Test(s) ordered: BLOOD CULT (SET 2)............ completed: Feb 15, 2025 12:45 * BACTERIOLOGY FINAL REPORT => Feb 15, 2025 12:46 TECH CODE: [id number] Bacteriology Remark(s): 02/10/25 CMG CULTURE IS NEGATIVE TO DATE, ALL POSITIVES ARE ROUTINELY CALLED. Culture shows NO GROWTH IN 6 DAYS. 02/15/25 CED =--=--=--=--=--=--=--=--=--=- -=--=--=--=--=--=--=--=--=--= --=--=--=--=--=--=-- Performing Laboratory: Bacteriology Report Performed By: [facility] [address] [facility] CLIA# [id number] [address] [facility] [address] [place] [address] Bact Report Remark Performed By: [facility] [address] [facility] CLIA# [id number] [id number] [place] [address] [facility] Encounter Notes: All associated encounter notes This section contains the clinical notes associated to the Encounter. Date/Time Encounter Note(s) Provider Source Jan 08, 2025 02:52 PM NONVA NOTE: LOCAL TITLE: COMMUNITY [facility]ARE-DARRION SELF PRESENTING CARE COORD PLAN STANDARD TITLE: NONVA NOTE DATE OF NOTE: JAN 08, 2025@14:52 ENTRY DATE: FEB 07, 2025@14:52:24 AUTHOR: BETH VELÁSQUEZ COSIGNER: URGENCY: STATUS: COMPLETED COMMUNITY CARE-DARRION SELF PRESENTING CARE COORD PLAN 657 STL Has ADDENDA Emergency Notification Intake Date Presenting to the Facility: Dec Information Obtained Through: Notified from ECR worklist Notification ID: [id number] [facility] Referral #: [id number] [facility] [place]: Hospital: [facility] Address: [address] City: [place] State: [place] Zip Code: [address] [facility] Facility Point of Contact: Name: Negrita Llamas Chief Complaint: abdominal pain Disposition Unknown at time of intake note entry No records pertinent to this ER Visit found in [facility]. Faxed request for records to [facility]. /esJune [facility]RI[employer]EN [employer]IM[employer]SE[employer] SPEC Signed: 02/07/2025 14:55 Receipt Acknowledged By: 02/08/2025 08:05 /es/ GAUTAM CAMERON RN MSN REGISTERED NURSE for ROB Tomas KELLY 02/07/2025 18:30 /es/ CARLOS ESQUIVEL M.D. STAFF PHYSICIAN [facility] 02/17/2025 ADDENDUM STATUS: COMPLETED Records r/t this episode of care have been sent for scanning. Please review attached DC summary and place any necessary referrals/consults KIM to avoid non-payment for follow-up services. /june CHRI[employer]EN [employer]ED REIMBURSEMENT SPEC Signed: 02/17/2025 11:55 BETH VELÁSQUEZ [facility]
--- OUTSIDE RECORDS SUMMARY | 2025-02-09 05:18 | XMS_ITS | Encounter Summary ---
Author Name Department of [facility] Affairs ([place]) 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 Role Phone GRACE QUINN Primary Care [...] [place]'s Name Patient's Relationship to Policy [facility] MEDICARE SUPPLEMEN SHEILA PLANF Mar 25, 2016 [facility] [id number] [phone] CHRISTOPHER JOSE MARIA PATIENT [facility] MEDICARE SUPPLEMEN SHEILA PLANF Oct 23, 2010 PLANF [id number] ISMAELSANARAJI JOSE MARIA PATIENT [facility] MEDICARE SUPPLEMEN SHEILA PLANF Mar 25, 2016 PLANF [id number] JOSE MARIA WHITEP MED SUPP MEDICARE SUPPLEMEN SHEILA PLANF Oct 23, 2010 PLANF [id number] [phone] JOSE MARIA WHITEP [facility] (WNR) MEDICARE ADVANTAGE [facility] (WNR) July 24, 2023 [id number] JOSE MARIA WHITE PATIENT MEDICARE (WNR) MEDICARE (M) PART B July 24, 2003 PART B [id number] JOSE MARIA WHITE PATIENT MEDICARE (WNR) MEDICARE (M) PART A July 24, 2003 PART A [id number] [phone] JOSE MARIA WHITE PATIENT MEDICARE (WNR) MEDICARE (M) PART A July 24, 2003 PART A [id number] JOSE MARIA WHITE PATIENT [facility] (WNR) MEDICARE ADVANTAGE MCR (WNR) Mar 25, 2024 [id number] JOSE MARIA WHITE [facility] (WNR) MEDICARE ADVANTAGE MCR (WNR) Mar 25, 2024 [id number] JOSE MARIA WHITE PATIENT Selected Encounter This section includes the information on record at [place] for the Encounter. Date/Time Encounter Type Encounter Description Reason Provider Source Feb 09, 2025 11:18 AM EMERGENCY DEPT VISIT [facility] EMERGENCY DEPT ICD-10-CM R53.1 Weakness KAI ARGUETA E Encounter Template Text not used by [place] Assessments - Encounter Diagnoses This section includes the primary and secondary diagnoses documented for the Encounter. Date/Time Primary/Secondary Diagnosis Diagnosis Name Provider Source Feb 09, 2025 03:02 PM PRIMARY Weakness BÁRBARA ARGUETA [facility] Plan of Treatment: Future Appointments (+ [...] 20 appointments. The data comes from all [facility]. Appointment Date/Time Appointment Type Appointme nt Facility Name Feb 12, 2025 01:30 PM AMBULATORY - NONE [facility] Mar 15, 2025 01:30 PM AMBULATORY - NONE [facility] Mar 31, 2025 10:00 AM AMBULATORY - MEDICINE [facility] Mar 31, 2025 12:00 PM AMBULATORY - SURGERY . Kristian [facility] Mar 31, 2025 02:30 PM AMBULATORY - MEDICINE [facility] Apr 09, 2025 11:00 AM AMBULATORY - MEDICINE [facility] May 03, 2025 03:00 PM AMBULATORY - NONE [facility] Active, Pending, and Scheduled Orders This section includes a listing of several types of active, pending, and scheduled orders, including clinic medications orders, diagnostic test orders, procedure orders and consult orders; where the start date of the order is 45 days before the date of the Encounter or 45 days after the date of theEncounter. The data comes from all [facility]. 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 STL Cons Waterproofer's Choice [facility] Jan 15, 2025 12:00 AM Laboratory - Chemistry Order CELIAC DISEASE PANEL (STL-MRN) GOLD/RED SST SERUM SP ONCE [facility] Jan 15, 2025 12:00 AM Laboratory - Chemistry Order ANTI-NUCLEAR ANTIBODY (STL-PB) GOLD/RED SST SERUM SP [facility] Jan 15, 2025 12:00 AM Laboratory - Chemistry Order IRON/TIBC PROFILE GOLD/RED SST SERUM SP [facility] Jan 15, 2025 12:00 AM Laboratory - Chemistry Order ANTI-MITOCHONDRIAL AB (STL-PB) GOLD/RED SST SERUM SP [facility] Jan 15, 2025 12:00 AM Laboratory - Chemistry Order ACTIN (SMOOTHMUSCLE) ANTIBODY IGG GOLD/RED SST SERUM SP [facility] Jan 15, 2025 12:00 AM Laboratory - Chemistry Order HEP HB S Ag (AUSRIA) (STL) GOLD/RED SST SERUM SP [facility] Jan 15, 2025 12:00 AM Laboratory - Chemistry Order HEPATITIS B SURFACE AB PNL GOLD/RED SST SERUM SP [facility] Jan 15, 2025 12:00 AM Laboratory - Chemistry Order IGG (STL) GOLD/RED SST SERUM [facility] Jan 15, 2025 12:00 AM Laboratory - Chemistry Order HEPATITIS A IGG AB (STL) GOLD/RED SST SERUM SP [facility] Jan 15, 2025 12:00 AM Laboratory - Chemistry Order ALPHA-1 ANTITRYPSIN (STL-PB) GOLD/RED SST SERUM [facility] Jan 15, 2025 12:00 AM Laboratory - Chemistry Order HEP B CORE AB TOTAL. (STL) GOLD/RED SST SERUM [facility] Jan 15, 2025 12:00 AM Laboratory - Chemistry Order FERRITIN GOLD/RED SST SERUM [facility] Jan 15, 2025 12:00 AM Laboratory - Chemistry Order HEPATIC FUNTION PANEL (STL) GREEN LI/HEP BLD/PLAS PLASMA SP [facility] Jan 15, 2025 12:00 AM Laboratory - Chemistry Order HEP C Ab HCV Ab (STL) GOLD/RED SST SERUM [facility] Feb 09, 2025 12:18 PM Laboratory - Chemistry Order URINALYSIS W/ CX REFLEX (STL-PB) URN - CLEAN CATCH URINE WC ONCE [facility] Mar 01, 2025 12:00 AM Laboratory - Microbiology Order C&S URINE URINE HOLT WC ONCE [facility] Mar 01, 2025 12:00 AM Laboratory - Chemistry Order OCCULT BLOOD FIT X1 SCREEN STOOL FECES SP [facility] Mar 01, 2025 12:00 AM Laboratory - Chemistry Order ANTITHROMBIN III ACTIVITY BLUE,LIGHT(SODIUM CITRATE) PLASMA [facility] Mar 01, 2025 09:36 AM Consult Order EYE CLINIC OUTPT [place] Cons [employer]er's Choice [facility] Mar 01, 2025 09:36 AM Consult Order VASCULAR LAB OUTPT ST[facility] Cons Waterproofer's Choice [facility] Mar 01, 2025 09:36 AM Consult Order CARDIOLOGY OUTPT [place] Cons [facility] Choice [facility] Mar 08, 2025 12:00 PM Laboratory - Chemistry Order FACTOR V(LEIDEN)MUTATION ANALYSIS BLOOD SP [facility] Mar 09, 2025 12:00 AM Laboratory - Chemistry Order URINE DRUG SCREEN (STL) URINE YELLOW SP [facility] Mar 15, 2025 12:00 AM Laboratory - Chemistry Order HEP C Ab HCV Ab (STL) GOLD/RED SST SERUM [facility] Mar 15, 2025 12:00 AM Laboratory - Chemistry Order LACTOFERRIN,STOOL (L-MA-PB) STOOL FECES [facility] Mar 15, 2025 12:00 AM Laboratory - Chemistry Order ANTI-NUCLEAR ANTIBODY (STL-PB) GOLD/RED SST SERUM [facility] Mar 15, 2025 12:00 AM Laboratory - Chemistry Order ANTI-MITOCHONDRIAL AB (STL-PB) GOLD/RED SST SERUM [facility] Mar 15, 2025 12:00 AM Laboratory - Chemistry Order ACTIN (SMOOTHMUSCLE) ANTIBODY IGG GOLD/RED SST SERUM [facility] Mar 15, 2025 12:00 AM Laboratory - Chemistry Order HEP HB S Ag (AUSRIA) (STL) GOLD/RED SST SERUM [facility] Mar 15, 2025 12:00 AM Laboratory - Chemistry Order IGG (STL) GOLD/RED SST SERUM [facility] Mar 15, 2025 12:00 AM Laboratory - Chemistry Order HEPATITIS B SURFACE AB PNL GOLD/RED SST SERUM [facility] Mar 15, 2025 12:00 AM Laboratory - Chemistry Order HEP B CORE AB TOTAL. (STL) GOLD/RED SST SERUM [facility] Mar 15, 2025 12:00 AM Laboratory - Chemistry Order HEPATITIS A IGG AB (STL) GOLD/RED SST SERUM [facility] Mar 15, 2025 12:00 AM Laboratory - Chemistry Order CELIAC DISEASE PANEL (STL-MRN) GOLD/RED SST SERUM SP ONCE [facility] Mar 15, 2025 12:00 AM Laboratory - Chemistry Order ALPHA-1 ANTITRYPSIN (STL-PB) GOLD/RED SST SERUM SP [facility] Mar 15, 2025 12:00 AM Imaging - General Radiology Order SPINE LUMBOSACRAL 2 OR 3 VIEWS [facility] Mar 15, 2025 10:49 AM Laboratory - Chemistry Order SHIGA TOXIN 1 STOOL FECES WC ONCE [facility] Mar 15, 2025 10:49 AM Laboratory - Chemistry Order SHIGA TOXIN 2 STOOL FECES WC ONCE [facility] Mar 15, 2025 10:49 AM Laboratory - Microbiology Order C&S STOOL STOOL FECES WC [facility] Mar 15, 2025 10:49 AM Laboratory - Chemistry Order C DIFF EPI PCR PNL STOOL, PARA-PACK CLEAN FECES [facility] Mar 15, 2025 10:49 AM Laboratory - Microbiology Order PARASITE EXAM (STL) STOOL, PARA-PACK CLEAN FECES SP [facility] Mar 15, 2025 10:49 AM Consult Order GI DIAGNOSTIC COLONOSCOPY OUTPATIENT JESSICA Cons Waterproofer's Choice [facility] Mar 19, 2025 12:00 AM Laboratory - Chemistry Order PROTEIN C ACTIVITY(L-MA-PB) BLUE,LIGHT(SODIUM CITRATE) PLASMA SP [facility] Lab Results: +/- 30 days of the [...] Type Comment Mar 08, 2025 12:00 PM [facility] PROTHROMBIN GENE ANALYSIS FACTOR II MUT BLOOD Specimen Type: BLOOD Comment: RESULT: [id number] VARIANT NOT DETECTED INTERPRETATION: This individual is negative (normal) for the [id number] variant in the Prothrombin/Fact or II gene. Increased risk of thrombophilia can be caused by a variety of genetic and non-genetic factors not screened for by this assay. Ordering Provider: STU FABIAN Report Released Date/Time: Mar 01, 2025 09:36 AM Reporting Lab: [address] [address] Performing Lab: [address] PROTHROMBIN GENE ANALYSIS FACTOR II MUT NEG Mar 08, 2025 12:00 PM [facility] PROTEIN S ACTIVITY(STL-MA-PB) PLASMA Specimen Type: PLASMA Comment: Test Performed by [facility] [place] [employer] [facility], [address] [place] [address] Juan Hassan M.D., Ph.D., Director of Laboratories , [facility] [id number] Ordering Provider: STU FABIAN Report Released Date/Time: Mar 01, 2025 09:36 AM Reporting Lab: [address] [address] Performing Lab: [address] PROTEIN S ACTIVITY(STL-MA-PB) [phone] -150 Mar 08, 2025 12:00 PM [facility] PROTEIN URINE URINE Specimen Type: URINE No comment entered. Ordering Provider: STU FABIAN Report Released Date/Time: Mar 01, 2025 09:36 AM Reporting Lab: [address] [address] Performing Lab: [address] [address] PROTEIN URINE 20.5 mg/dL Mar 08, 2025 12:00 PM [facility] CREATININE URINE/OTHERS URINE Specimen Type: URINE No comment entered. Ordering Provider: STU FABIAN Report Released Date/Time: Mar 01, 2025 09:36 AM Reporting Lab: [address] [address] Performing Lab: [address] [address] CREATININE URINE/OTHERS 249.6 mg/dL H 63-1 66 Mar 08, 2025 12:00 PM [facility] PT/INR NEW (STL-MA) PLASMA Specimen Type: PLAS MA No comment entered. Ordering Provider: STU FABIAN Report Released Date/Time: Mar 01, 2025 09:36 AM Reporting Lab: [address] [address] Performing Lab: [place] [address] [facility] [address] PROTIME 15.6 s H 9.4-12.5 INR VALUE 1.4 {INR} Mar 08, 2025 12:00 PM [facility] APTT PLASMA Specimen Type: PLASM A No comment entered. Ordering Provider: STU FABIAN Report Released Date/Time: Mar 01, 2025 09:36 AM Reporting Lab: [address] [address] Performing Lab: [address] [address] APTT 31.4 s 26.7-39.9 Mar 08, 2025 12:00 PM [facility] MICRAL/CREAT PROFILE (STL) URINE Specimen Typ e: URINE No comment entered. Ordering Provider: STU FABIAN Report Released Date/Time: Mar 01, 2025 09:36 AM Reporting Lab: [address] [address] Performing Lab: [address] [address] URINE ALBUMIN (PB-STL) 33.1 mg/L uACR (STL) 13 mg/g 0-29 CREATININE URINE/OTHERS 251.3 mg/dL H 63-1 66 Mar 08, 2025 12:00 PM [facility] HBPC GLUCOSE PLASMA Specimen Type: PLASM A No comment entered. Ordering Provider: STU FABIAN Report Released Date/Time: Mar 01, 2025 09:36 AM Reporting Lab: [place] [address] [address] [facility] [address] Performing Lab: [facility] [address] [facility] [address] HB[facility] GLUCOSE 134 mg/dL H 72-99 Mar 08, 2025 12:00 PM [facility] TSH (MA-PB) SERUM Specimen Type: SERUM No comment entered. Ordering Provider: STU FABIAN Report Released Date/Time: Mar 01, 2025 09:36 AM Reporting Lab: [place] [address] [facility] [address] Performing Lab: [address] [address] TSH 0.702 u[IU]/mL 0.47-5 Mar 08, 2025 12:00 PM [facility] B12 SERUM Specimen Type: SERUM No comment entered. Ordering Provider: STU FABIAN Report Released Date/Time: Mar 01, 2025 09:36 AM Reporting Lab: [place] [address] [facility] [address] Performing Lab: [place] [address] [facility] [address] B12 592 pg/mL 213-816 Mar 08, 2025 12:00 PM [facility] FOLATE (STL-MA) SERUM Specimen Type: SERUM No comment entered. Ordering Provider: STU FABIAN Report Released Date/Time: Mar 01, 2025 09:36 AM Reporting Lab: [place] [address] [facility] [address] Performing Lab: [address] [address] FOLATE (STL-MA) 4.8 ng/mL L 7-20 Mar 08, 2025 12:00 PM [facility] CMP PLASMA Specimen Type: PLASM A Comment: No hemolysis noted. Ordering Provider: STU FABIAN Report Released Date/Time: Mar 01, 2025 09:36 AM Reporting Lab: [facility] [address] [address] Performing Lab: [address] [address] CREATININE 0.78 mg/dL 0.7-1.3 UREA NITROGEN 15.6 [...] 90.2 >60 Mar 08, 2025 12:00 PM [facility] VITAMIN D, 25-HYDROXY SERUM Specimen Type: SE RUM No comment entered. Ordering Provider: STU FABIAN Report Released Date/Time: Mar 01, 2025 09:36 AM Reporting Lab: [address] [address] Performing Lab: [address] [address] VITAMIN D, 25-HYDROXY 28.3 ng/mL L 30-96 Mar 08, 2025 12:00 PM [facility] LIPID PANEL (STL) PLASMA Specimen Type: PLASM A Comment: No hemolysis noted. Ordering Provider: STU FABIAN Report Released Date/Time: Mar 01, 2025 09:36 AM Reporting Lab: [address] [address] Performing Lab: [address] [address] CHOLESTEROL 136 mg/dL 0-200 TRIGLYCERIDE 138 mg/dL 0-150 CALCULATED LDL 70 mg/dL HDL(New) 38 mg/dL L >40 Mar 08, 2025 12:00 PM [facility] HGA1C BLOOD Specimen Type: BLOOD No comment entered. Ordering Provider: STU FABIAN Report Released Date/Time: Mar 01, 2025 09:36 AM Reporting Lab: [facility] [address] [place] [address] Performing Lab: [address] [address] HGA1C 6.6 Mar 08, 2025 12:00 PM [facility] CBC BLOOD Specimen Type: BLOOD Comment: ~THIS TEST SHOULD ONLY BE USED BY [facility] Ordering Provider: STU FABIAN Report Released Date/Time: Mar 01, 2025 09:36 AM Reporting Lab: [address] [address] Performing Lab: [address] [address] WBC 3.3 10*3/uL L 3.6-11.2 RBC 3.50 [...] SCRNPERF YES Mar 08, 2025 12:00 PM [facility] CYSTATIN C EGFR PANELS (ST-PB-DE) PLASMA Spec imen Type: PLASMA Comment: Choice of which of the reported eGFR values to use depends on the clinical situation. For example, for patients with severe muscle wasting or reduced muscle mass, eGFR calculated using the 2012 cystatin equation may be preferred. Ordering Provider: STU FABIAN Report Released Date/Time: Mar 01, 2025 09:36 AM Reporting Lab: [address] [address] Performing Lab: [address] [address] CYSTATIN C 1.66 mg/L 0.57-1.80 CKD-EPI CYSTATIN C (2011) 36.6 >60 CKD-EPI CREAT-CYSC (2020) 57.4 >60 CREATININE ([facility]) 0.76 mg/dL 0.7-1.3 Mar 08, 2025 12:00 PM [facility] FERRITIN SERUM Specimen Type: SERUM No comment entered. Ordering Provider: STU FABIAN Report Released Date/Time: Mar 01, 2025 09:36 AM Reporting Lab: [address] [address] Performing Lab: [address] [address] FERRITIN 61.70 ng/mL 22-275 Mar 08, 2025 12:00 PM [facility] IRON/TIBC PROFILE SERUM Specimen Type: SERUM No comment entered. Ordering Provider: STU FABIAN Report Released Date/Time: Mar 01, 2025 09:36 AM Reporting Lab: [address] [address] Performing Lab: [address] [address] TIBC 190 ug/dL L 250-450 TRANSFERRIN 152 mg/dL L 163-344 IRON SATURATION 25 20-50 IRON 47 ug/dL L 65-175 Mar 08, 2025 12:00 PM [facility] URINALYSIS W/O REFLEX CX (STL-PB) URINE Speci men Type: URINE No comment entered. Ordering Provider: STU FABIAN Report Released Date/Time: Mar 01, 2025 09:36 AM Reporting Lab: [place] [phone] Performing Lab: [place] [phone] URINE COLOR Yellow Yellow U.BILIRUBIN Negative mg/dL [...] 1.038 H Mar 08, 2025 12:00 PM [facility] RETICULOCYTE PANEL BLOOD Specimen Type: BLOOD Comment: ~THIS TEST SHOULD ONLY BE USED BY HB Ordering Provider: STU FABIAN Report Released Date/Time: Mar 01, 2025 09:36 AM Reporting Lab: [place] [address] Performing Lab: [place] [address] RETIC RATIO 1.65 0.50-2.30 IRF 18.2 H 2.3-13.4 RETICULOCYTE HEMOGLOBIN EQUIVALENT 35.0 pg 28.2-36.6 RETIC COUNT,ABS 0.058 10*6/uL 0.022-0.10 1 Feb 10, 2025 12:51 PM [facility] GLUCOSE,BLOOD-poct (STL) BLOOD Specimen Type: BLOOD Comment: Test Performed by: [id number] Meter #: [id number] Ordering Provider: ANN BEASLEY Report Released Date/Time: Feb 10, 2025 12:53 PM Reporting Lab: [place] [address] [facility] [address] Performing Lab: [place] [address] [facility] [address] GLUCOSE,BLOOD-poct (STL) 199 mg/dL H 72-99 Feb 10, 2025 05:13 AM [facility] GLUCOSE,BLOOD-poct (STL) BLOOD Specimen Type: BLOOD Comment: Test Performed by: [id number] Meter #: [id number] Ordering Provider: ANN BEASLEY Report Released Date/Time: Feb 10, 2025 05:37 AM Reporting Lab: [place] [address] [address] [facility] [address] Performing Lab: [place] [address] [facility] [address] GLUCOSE,BLOOD-poct (STL) 95 mg/dL 72-99 Feb 09, 2025 11:20 PM [facility] APTT PLASMA Specimen Type: PLASM A Comment: ~HEP BOLUS - CALL RESULTS Ordering Provider: JESSE BURGOS Report Released Date/Time: Feb 09, 2025 04:35 PM Reporting Lab: [place] [address] [facility] [address] Performing Lab: [place] [address] [facility] [address] APTT 29.9 s 26.7-39.9 Feb 09, 2025 08:35 PM [facility] GLUCOSE,BLOOD-poct (STL) BLOOD Specimen Type: BLOOD Comment: Test Performed by: [id number] Meter #: [id number] Ordering Provider: ANN BEASLEY Report Released Date/Time: Feb 09, 2025 08:41 PM Reporting Lab: [place] [address] [facility] [address] Performing Lab: [place] [address] [facility] [address] GLUCOSE,BLOOD-poct (STL) 159 mg/dL H 72-99 Feb 09, 2025 05:22 PM [facility] MRSA SURVL NARES DNA NARES [...] 09, 2025 04:31 PM Reporting Lab: [address] [address] Performing Lab: [address] [address] MRSA SURVL NARES DNA Negative Negative Feb 09, 2025 05:00 PM [facility] APTT PLASMA Specimen Type: PLASM A Comment: ~HEP BOLUS-CALL RESULTS Ordering Provider: JESSE BURGOS Report Released Date/Time: Feb 09, 2025 04:35 PM Reporting Lab: [address] [address] Performing Lab: [address] [address] APTT 28.0 s 26.7-39.9 Feb 09, 2025 04:59 PM [facility] GLUCOSE,BLOOD-poct (STL) BLOOD Specimen Type: BLOOD Comment: Test Performed by: [id number] Meter #: [id number] Ordering Provider: ANN BEASLEY Report Released Date/Time: Feb 09, 2025 05:02 PM Reporting Lab: [address] [address] Performing Lab: [address] [address] GLUCOSE,BLOOD-poct (STL) 162 mg/dL H 72-99 Feb 09, 2025 01:55 PM [facility] LACTIC ACID (STL-PB) PLASMA Specimen Type: TAMARA SMA No comment entered. Ordering Provider: JONATHAN LEONG I Report Released Date/Time: Feb 09, 2025 01:44 PM Reporting Lab: [address] [address] Performing Lab: [address] [address] LACTIC ACID (STL-PB) 2.9 mmol/L H 0.5-2.0 Feb 09, 2025 11:52 AM [facility] BLOOD GAS PANEL ABG (L) VENOUS BLOOD Specimen Type : VENOUS BLOOD Comment: Test Performed by: [id number] Meter #: [id number] Ordering Provider: ANNIE ARGUETA Report Released Date/Time: Feb 09, 2025 11:53 AM Reporting Lab: [address] [address] Performing Lab: [address] [address] GEM PH 7.40 7.31-7.41 GEM PCO2 36 [...] TEMP 37.0 Feb 09, 2025 11:51 AM [facility] BRAIN NATRIURETIC PEPTIDE PLASMA Specimen Type : PLASMA No comment entered. Ordering Provider: JONATHAN LEONG I Report Released Date/Time: Feb 09, 2025 01:19 PM Reporting Lab: [address] [address] Performing Lab: [address] [address] BRAIN NATRIURETIC PEPTIDE 341.6 pg/mL H 0- 100 Feb 09, 2025 11:31 AM [facility] TROPONIN I (STL) PLASMA Specimen Type: PLASM A Comment: No hemolysis noted. Ordering Provider: KESHIA HUYNH Report Released Date/Time: Feb 09, 2025 11:30 AM Reporting Lab: [address] [address] Performing Lab: [address] [address] TROPONIN I (STL) 0.019 ng/mL 0-0.033 Feb 09, 2025 11:31 AM [facility] COMPREHENSIVE METABOLIC PANEL PLASMA Specimen Type: PLASMA Comment: No hemolysis noted. Ordering Provider: KESHIA HUYNH Report Released Date/Time: Feb 09, 2025 11:30 AM Reporting Lab: [address] [address] Performing Lab: [address] [address] CREATININE 0.96 mg/dL 0.7-1.3 UREA NITROGEN 16.8 [...] 80.4 >60 Feb 09, 2025 11:31 AM [facility] CBC BLOOD Specimen Type: BLOOD No comment entered. Ordering Provider: KESHIA HUYNH Report Released Date/Time: Feb 09, 2025 11:30 AM Reporting Lab: [address] [address] Performing Lab: [address] [address] WBC 5.6 10*3/uL 3.6-11.2 RBC 3.71 10*6/uL [...] 0.00-0. 20 Feb 09, 2025 11:20 AM [facility] GLUCOSE,BLOOD-poct (STL) BLOOD Specimen Type: BLOOD Comment: Test Performed by: [id number] Meter #: [id number] Ordering Provider: ANNIE ARGUETA Report Released Date/Time: Feb 09, 2025 11:22 AM Reporting Lab: [address] [address] Performing Lab: [facility] [address] [facility] [address] GLUCOSE,BLOOD-poct (STL) 161 mg/dL H 72-99 Vital Signs: All taken on the encounter date This section contains inpatient and outpatient Vital Signs collected on the date of the Encounter. Date/Time Temperature Pulse Blood Pressure Respiratory Rate SP02 Pain Height Weight Body Mass Index Source Feb 09, 2025 08:36 PM 97.6 F 72 /min 133/67 mm[Hg] 18 /min 97 % 0 [facility] Feb 09, 2025 07:17 PM 0 [facility] Feb 09, 2025 06:03 PM 98.0 F 81 /min 147/84 mm[Hg] 18 /min 97 % 0 [facility] Feb 09, 2025 04:11 PM 98.4 F 90 /min 134/75 mm[Hg] 18 /min 98 % 7 280.0 lb 36 [facility] Feb 09, 2025 02:43 PM 83 /min 154/73 mm[Hg] 16 /min 99 % [facility] Social History: Smoking Status (Most [...] Vanessa eaton Jun 10, 2024 11:21 AM [place]-TOBACCO NEVER U SED OTHER TYPE [facility] Tobacco Use History This section includes a history of the smoking, or tobacco-related health factors, that were collected on or before the date of the Encounter. The data comes from the [place] facility where the Encounter took place. Date/Time Smoking Status/Tobacco Use Comment Antoine garcia Jun 10, 2024 11:21 AM MS-TOBACCO USE FOR HANK CIGARETTES [facility] Radiology Reports: +/- 30 days of the [...] the Encounter. The data comes from all [facility] treatment facilities. Date/Time Radiology Report Provider Source Feb 10, 2025 11:29 AM US EXTREMITY VEINS BILAT (DVT): JOSE MARIA WHITE [id number] -[id number] M Exm Date: FEB 10, 2025@11:29 Req Phys: JESSE BURGOS Pat Loc: 6N S OE-JESSICA/02-10-2025@13:14 Img Loc: JESSICA-ULTRASOUND JESSICA Service: [id number] [address] [address] (Case [id number] COMPLETE) US EXTREMITY VEINS BILAT (DVT) (US Detailed) CPT:20065 Reason for Study: dx with PE Clinical History: Report Status: Verified Date Reported: FEB 10, 2025 Date Verified: FEB 10, 2025 [employer] E-Sig:/ES/David Pastrana MD Report: CASE #: [id number] DATE:02/10/2025 12:51 PM CLINICAL HISTORY:dx with PE [...] verification. Dictated by Chastity Mantilla M.D. (Diagnostic Field Assistant). I, David Pastrana, have reviewed the images and report and concur with these findings. Primary Interpreting Staff: David Pastrana MD, Radiologist (Sanitary Landfill Supervisor) Primary Interpreting Resident: Chastity Mantilla MD, Resident Physician /DAVID [facility] Feb 09, 2025 03:[address] PE CHEST W/3D: JOSE MARIA WHITESancho [id number] -1945 M Exm Date: FEB 09, 2025@15:10 Req Phys: JONATHAN LEONG I Pat Loc: 6N S -JESSICA/02-09-2025@16:39 Img Loc: JESSICA-CT IMAGING JESSICA Service: [address] [address] (Case [id number] COMPLETE) CT THORAX W/CONT (PE) (CT Detailed) CPT:21695 Contrast Media : unspecified contrast media Reason for Study: syncope, abormanl CXR Clinical History: Responsible Attending: Mariam Attending Contact Number: [id number] Resident Contact Number: syncope, abormanl CXR Allergies listed in CPRS chart: PENICILLIN, TETRACYCLINE, NEOSPORIN, CELEBREX, SIMVASTATIN Creatinine: CREATININE 0.96 mg/dL 02/09/2025 11:31 /eGFR: STL EGFR (within one year). CREATININE 0.96 mg/dL (02/09/25 11:31) Wt: 273.5 lb [124.06 kg] (09/10/2023 13:16) History of: Renal failure, chronic or acute renal disease: NO Report Status: Verified Date Reported: FEB 09, 2025 Date Verified: FEB 09, 2025 Sanitary Landfill Supervisor E-Sig:/ES/REA MARLEY Report: CASE #: [id number] DATE:02/09/2025 4:08 PM CLINICAL HISTORY:syncope, abormanl CXR [...] confirmation. Dictated by Jamal Chiu M.D. (Diagnostic Field Assistant). I, Rea Marley, have reviewed the images and report and concur with these findings. Primary Interpreting Staff: REA MARLEY, Staff Physician (Sanitary Landfill Supervisor) Primary Interpreting Resident: JAMAL CHIU, Resident Physician /REA [facility] Feb 09, 2025 01:[address] HEAD W/O CONT: JOSE MARIA WHITE RODRIGUE [id number] -1945 M Exm Date: FEB 09, 2025@13:01 Req Phys: JONATHAN LEONG Loc: JESSICA-EMERGENCY DEPT 2ND SHIFT (R Img Loc: JESS[facility]-CT IMAGING JESSICA Service: Unknown [facility], [address] [address] [place] [address] (Case [id number] COMPLETE) CT HEAD W/O CONT (CT Detailed) CPT:92984 Reason for Study: syncopal episode Clinical History: Responsible Attending: Mariam Attending Contact Number: [id number] Resident Contact Number: syncopal episode Allergies listed in CPRS chart: PENICILLIN, TETRACYCLINE, NEOSPORIN, CELEBREX, SIMVASTATIN Creatinine: CREATININE 0.90 mg/dL 08/07/2024 14:00 /eGFR: STL EGFR (within one year). CREATININE 0.90 mg/dL (08/07/24 14:00) Wt: 273.5 lb [124.06 kg] (09/10/2023 13:16) History of: Renal failure, chronic or acute renal disease: NO Report Status: Verified Date Reported: FEB 09, 2025 Date Verified: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
--- OUTSIDE RECORDS SUMMARY | 2025-02-09 09:57 | XMS_ITS ---
[place] [facility] Encounter Summary Created on: March 23, 2025 ISMAELTESS JOSE MARIA SOHAM : 1945 Sex: Male Author Name Department of [employer] ([place]) Organization [facility] ([place]) Address [address] [place] [address] Care Team Providers Care Motorcycle Police Officer Name Role Phone GRACE QUINN Primary Care [...] Medina's Name Patient's Relationship to Policy Medina [facility] MEDICARE SUPPLEMEN SHEILA PLANF Mar 25, 2016 PLAN [id number] [phone] ISMAELSANARAJI JOSE MARIA PATIENT [facility] MEDICARE SUPPLEMEN SHEILA PLANF Oct 23, 2010 PLANF [id number] ISMAELJOSE MARIA PULIDO PATIENT [facility] MEDICARE SUPPLEMEN SHEILA PLANF Mar 25, 2016 PLANF [id number] JOSE MARIA MATTHEWSP MED SUPP MEDICARE SUPPLEMEN SHEILA PLANF Oct 23, 2010 PLANF [id number] [phone] JOSE MARIA MATTHEWS AARP [facility] (WNR) MEDICARE ADVANTAGE [facility] (WNR) July 24, 2023 [id number] [phone] JOSE MARIA MATTHEWS PATIENT MEDICARE (WNR) MEDICARE (M) PART A July 24, 2003 PART A [id number] JOSE MARIA MATTHEWS PATIENT MEDICARE (WNR) MEDICARE (M) PART B July 24, 2003 PART B [id number] JOSE MARIA MATTHEWS PATIENT MEDICARE (WNR) MEDICARE (M) PART A July 24, 2003 PART A [id number] JOSE MARIA MATTHEWS [facility] (WNR) MEDICARE ADVANTAGE [facility] (WNR) Mar 25, 2024 [id number] JOSE MARIA MATTHEWS [facility] (WNR) MEDICARE ADVANTAGE [facility] (WNR) Mar 25, 2024 [id number] JOSE MARIA MATTHEWS PATIENT Selected Encounter This section includes the information on record at [place] for the Encounter. Date/Time Encounter Type Encounter Description Reason Pro vider Source Feb 09, 2025 03:57 PM Inpatient Visit HOSPITALIZATION ICD-10-CM I48.0 Paroxysmal atrial fibrillation [facility] Encounter Template Text not used by [place] Assessments - Encounter Diagnoses This section includes the primary and secondary diagnoses documented for the Encounter. 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 [facility] Feb 10, 2025 01:24 PM SECONDARY Body mass index [BMI] 36.0-36.9, adult [facility] Feb 10, 2025 01:24 PM SECONDARY Essential (primary) hypertension [facility] Feb 10, 2025 01:24 PM SECONDARY manager intermediate (current) use of oral hypoglycemic drugs [facility] Feb 10, 2025 01:24 PM SECONDARY Migraine, unsp, not intractable, without status migrainosus [facility] Feb 10, 2025 01:24 PM SECONDARY Obesity, unspecified [facility] Feb 10, 2025 01:24 PM SECONDARY Other ascites [facility] Feb 10, 2025 01:24 PM SECONDARY Paroxysmal atrial fibrillation [facility] Feb 10, 2025 01:24 PM SECONDARY Personal history of nicotine dependence [facility] Feb 10, 2025 01:24 PM SECONDARY Portal hypertension [facility] Feb 10, 2025 01:24 PM SECONDARY Post-traumatic stress disorder, unspecified [facility] Feb 10, 2025 01:24 PM SECONDARY Sarcoidosis, unspecified [facility] Feb 10, 2025 01:24 PM SECONDARY Syncope and collapse [facility] Feb 10, 2025 01:24 PM SECONDARY Type 2 diabetes mellitus without complications [facility] Feb 10, 2025 01:24 PM SECONDARY Unspecified cirrhosis of liver [facility] Plan of Treatment: Future Appointments (+ 6 months) and Future Tests (+/- 45 days) The Plan of Treatment section includes future care activities for the patient from all [facility]. This section includes future appointments and future orders which are active, pending or scheduled. Future Appointments This section includes appointments that were scheduled to occur 6 months from the date of the Encounter, up to a maximum of 20 appointments. The data comes from all [facility]. Appointment Date/Time Appointment Type Appointme nt Facility Name Feb 12, 2025 01:30 PM AMBULATORY - NONE [facility] Mar 15, 2025 01:30 PM AMBULATORY - NONE [facility] Mar 31, 2025 10:00 AM AMBULATORY - MEDICINE [facility] Mar 31, 2025 12:00 PM AMBULATORY - SURGERY [facility] Mar 31, 2025 02:30 PM AMBULATORY - MEDICINE [facility] Apr 09, 2025 11:00 AM AMBULATORY - MEDICINE [facility] May 03, 2025 03:00 PM [...] of theEncounter. The data comes from all [place] treatment facilities. 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 ST[facility] Cons Floor Cashier's Choice [facility] Jan 15, 2025 12:00 AM Laboratory - Chemistry Order CELIAC DISEASE PANEL (STL-MRN) GOLD/RED SST SERUM SP ONCE [facility] Jan 15, 2025 12:00 AM Laboratory - Chemistry Order IRON/TIBC PROFILE GOLD/RED SST SERUM SP [facility] Jan 15, 2025 12:00 AM Laboratory - Chemistry Order ANTI-NUCLEAR ANTIBODY (STL-PB) GOLD/RED SST SERUM SP [facility] Jan 15, 2025 12:00 AM Laboratory - Chemistry Order ANTI-MITOCHONDRIAL AB (STL-PB) GOLD/RED SST SERUM SP [facility] Jan 15, 2025 12:00 AM Laboratory - Chemistry Order ACTIN (SMOOTHMUSCLE) ANTIBODY IGG GOLD/RED SST SERUM SP [facility] Jan 15, 2025 12:00 AM Laboratory - Chemistry Order IGG (STL) GOLD/RED SST SERUM SP [facility] Jan 15, 2025 12:00 AM Laboratory - Chemistry Order HEPATITIS B SURFACE AB PNL GOLD/RED SST SERUM SP [facility] Jan 15, 2025 12:00 AM Laboratory - Chemistry Order HEP HB S Ag (AUSRIA) (STL) GOLD/RED SST SERUM SP [facility] Jan 15, 2025 12:00 AM Laboratory - Chemistry Order HEP B CORE AB TOTAL. (STL) GOLD/RED SST SERUM SP [facility] Jan 15, 2025 12:00 AM Laboratory - Chemistry Order HEPATITIS A IGG AB (STL) GOLD/RED SST SERUM SP [facility] Jan 15, 2025 12:00 AM Laboratory - Chemistry Order ALPHA-1 ANTITRYPSIN (STL-PB) GOLD/RED SST SERUM SP [facility] Jan 15, 2025 12:00 AM Laboratory - Chemistry Order HEPATIC FUNTION PANEL (STL) GREEN LI/HEP BLD/PLAS PLASMA SP [facility] Jan 15, 2025 12:00 AM Laboratory - Chemistry Order HEP C Ab HCV Ab (STL) GOLD/RED SST SERUM SP [facility] Jan 15, 2025 12:00 AM Laboratory - Chemistry Order FERRITIN GOLD/RED SST SERUM [facility] Feb 09, 2025 12:18 PM Laboratory - Chemistry Order URINALYSIS W/ CX REFLEX (L-PB) URN - CLEAN CATCH URINE WC ONCE [facility] Mar 01, 2025 12:00 AM Laboratory - Microbiology Order C&S URINE URINE HOLT WC ONCE [facility] Mar 01, 2025 12:00 AM Laboratory - Chemistry Order OCCULT BLOOD FIT X1 SCREEN STOOL FECES SP [facility] Mar 01, 2025 12:00 AM Laboratory - Chemistry Order ANTITHROMBIN III ACTIVITY BLUE,LIGHT(SODIUM CITRATE) PLASMA SP [facility] Mar 01, 2025 09:36 AM Consult Order EYE CLINIC OUTPT JESSICA Cons Floor Cashier's Choice [facility] Mar 01, 2025 09:36 AM Consult Order VASCULAR LAB OUTPT STL Cons Floor Cashier's Choice [facility] Mar 01, 2025 09:36 AM Consult Order CARDIOLOGY OUTPT JESSICA Cons Floor Cashier's Choice [facility] Mar 08, 2025 12:00 PM Laboratory - Chemistry Order FACTOR V(LEIDEN)MUTATION ANALYSIS BLOOD SP [facility] Mar 09, 2025 12:00 AM Laboratory - Chemistry Order URINE DRUG SCREEN (STL) URINE YELLOW SP [facility] Mar 15, 2025 12:00 AM Laboratory - Chemistry Order LACTOFERRIN,STOOL (STL-MA-PB) STOOL FECES SP [facility] Mar 15, 2025 12:00 AM Laboratory - Chemistry Order HEP C Ab HCV Ab (STL) GOLD/RED SST SERUM SP [facility] Mar 15, 2025 12:00 AM Laboratory - Chemistry Order ANTI-NUCLEAR ANTIBODY (STL-PB) GOLD/RED SST SERUM SP [facility] Mar 15, 2025 12:00 AM Laboratory - Chemistry Order ANTI-MITOCHONDRIAL AB (STL-PB) GOLD/RED SST SERUM SP [facility] Mar 15, 2025 12:00 AM Laboratory - Chemistry Order ACTIN (SMOOTHMUSCLE) ANTIBODY IGG GOLD/RED SST SERUM SP [facility] Mar 15, 2025 12:00 AM Laboratory - Chemistry Order HEP HB S Ag (AUSRIA) (STL) GOLD/RED SST SERUM SP [facility] Mar 15, 2025 12:00 AM Laboratory - Chemistry Order IGG (STL) GOLD/RED SST SERUM SP [facility] Mar 15, 2025 12:00 AM Laboratory - Chemistry Order HEPATITIS B SURFACE AB PNL GOLD/RED SST SERUM SP [facility] Mar 15, 2025 12:00 AM Laboratory - Chemistry Order HEP B CORE AB TOTAL. (STL) GOLD/RED SST SERUM SP [facility] Mar 15, 2025 12:00 AM Laboratory - Chemistry Order HEPATITIS A IGG AB (STL) GOLD/RED SST SERUM SP [facility] Mar 15, 2025 12:00 AM Laboratory - Chemistry Order CELIAC DISEASE PANEL (STL-MRN) GOLD/RED SST SERUM SP ONCE [facility] Mar 15, 2025 12:00 AM Laboratory - Chemistry Order ALPHA-1 ANTITRYPSIN (STL-PB) GOLD/RED SST SERUM SP [facility] Mar 15, 2025 12:00 AM Imaging - General Radiology Order SPINE LUMBOSACRAL 2 OR 3 VIEWS [facility] Mar 15, 2025 10:49 AM Laboratory - Chemistry Order SHIGA TOXIN 1 STOOL FECES WC ONCE [facility] Mar 15, 2025 10:49 AM Laboratory - Chemistry Order SHIGA TOXIN 2 STOOL FECES WC ONCE [facility] Mar 15, 2025 10:49 AM Laboratory - Microbiology Order C&S STOOL STOOL FECES WC [facility] Mar 15, 2025 10:49 AM Laboratory - Chemistry Order C DIFF EPI PCR PNL STOOL, PARA-PACK CLEAN FECES SP [facility] Mar 15, 2025 10:49 AM Laboratory - Microbiology Order PARASITE EXAM (STL) STOOL, PARA-PACK CLEAN FECES SP [facility] Mar 15, 2025 10:49 AM Consult Order GI DIAGNOSTIC COLONOSCOPY OUTPATIENT JESSICA Cons Floor Cashier's Choice [facility] Mar 19, 2025 12:00 AM Laboratory - Chemistry Order PROTEIN C ACTIVITY(STL-MA-PB) BLUE,LIGHT(SODIUM CITRATE) PLASMA [facility] Lab Results: +/- 30 days of the encounter This section includes the Chemistry and Hematology Lab Results on record with [place] for the patient. Radiology Reports and Pathology Reports are provided separately, in subsequent sections. Lab Results This section contains the Chemistry/Hematology Results that were resulted 30 days before or 30 daysafter the date of the Encounter. Date/Time Source Result Type Result - Unit Interpretation Reference Range Specimen Type Comment Mar 08, 2025 12:00 PM [facility] PROTHROMBIN GENE ANALYSIS FACTOR II MUT BLOOD Specimen Type: BLOOD Comment: RESULT: [id number] VARIANT NOT DETECTED INTERPRETATION: This individual is negative (normal) for the [id number] variant in the Prothrombin/Fact or II gene. Increased risk of thrombophilia can be caused by a variety of genetic and non-genetic factors not screened for by this assay. Ordering Provider: STU FABIAN Report Released Date/Time: Mar 01, 2025 09:36 AM Reporting Lab: [facility] [address] [facility] [facility] [address] Performing Lab: [facility] [address] [facility] [address] PROTHROMBIN GENE ANALYSIS FACTOR II MUT NEG Mar 08, 2025 12:00 PM [facility] PROTEIN S ACTIVITY(STL-MA-PB) PLASMA Specimen Type: PLASMA Comment: Test Performed by Nasrin Giles, [facility], [address] [place], [place] Juan Hassan M.D., Ph.D., Director of Laboratories , [facility] [id number] Ordering Provider: STU FABIAN Report Released Date/Time: Mar 01, 2025 09:36 AM Reporting Lab: [address] [address] Performing Lab: [facility] [address] [facility] PROTEIN S ACTIVITY(STL-MA-PB) 94 70 -150 Mar 08, 2025 12:00 PM [facility] PROTEIN URINE URINE Specimen Type: URINE No comment entered. Ordering Provider: STU FABIAN Report Released Date/Time: Mar 01, 2025 09:36 AM Reporting Lab: [address] [address] Performing Lab: [address] [address] PROTEIN URINE 20.5 mg/dL Mar 08, 2025 12:00 PM [facility] CREATININE URINE/OTHERS URINE Specimen Type: URINE No comment entered. Ordering Provider: STU FABIAN Report Released Date/Time: Mar 01, 2025 09:36 AM Reporting Lab: [address] [address] Performing Lab: [address] [address] CREATININE URINE/OTHERS 249.6 mg/dL H 63-1 66 Mar 08, 2025 12:00 PM [facility] MICRAL/CREAT PROFILE (STL) URINE Specimen Typ e: URINE No comment entered. Ordering Provider: STU FABIAN Report Released Date/Time: Mar 01, 2025 09:36 AM Reporting Lab: [address] [address] Performing Lab: [address] [address] URINE ALBUMIN (PB-STL) 33.1 mg/L uACR (STL) 13 mg/g 0-29 CREATININE URINE/OTHERS 251.3 mg/dL H 63-1 66 Mar 08, 2025 12:00 PM [facility] APTT PLASMA Specimen Type: PLASM A No comment entered. Ordering Provider: STU FABIAN Report Released Date/Time: Mar 01, 2025 09:36 AM Reporting Lab: [facility] [address] [address] Performing Lab: [facility] [address] [address] APTT 31.4 s 26.7-39.9 Mar 08, 2025 12:00 PM [facility] PT/INR NEW (STL-MA) PLASMA Specimen Type: PLAS MA No comment entered. Ordering Provider: STU FABIAN Report Released Date/Time: Mar 01, 2025 09:36 AM Reporting Lab: [facility] [address] [address] Performing Lab: [facility] [address] [facility] [address] PROTIME 15.6 s H 9.4-12.5 INR VALUE 1.4 {INR} Mar 08, 2025 12:00 PM [facility]PC GLUCOSE PLASMA Specimen Type: PLASM A No comment entered. Ordering Provider: STU FABIAN Report Released Date/Time: Mar 01, 2025 09:36 AM Reporting Lab: [facility] [address] [facility] [address] Performing Lab: [facility] [address] [facility] [address] HBPC GLUCOSE 134 mg/dL H 72-99 Mar 08, 2025 12:00 PM [facility] TSH (MA-PB) SERUM Specimen Type: SERUM No comment entered. Ordering Provider: STU FABIAN Report Released Date/Time: Mar 01, 2025 09:36 AM Reporting Lab: [facility] [address] [facility] [address] Performing Lab: [address] [address] TSH 0.702 u[IU]/mL 0.47-5 Mar 08, 2025 12:00 PM [facility] B12 SERUM Specimen Type: SERUM No comment entered. Ordering Provider: STU FABIAN Report Released Date/Time: Mar 01, 2025 09:36 AM Reporting Lab: [address] [address] Performing Lab: [address] [address] B12 592 pg/mL 213-816 Mar 08, 2025 12:00 PM [facility] CMP PLASMA Specimen Type: PLASM A Comment: No hemolysis noted. Ordering Provider: STU FABIAN Report Released Date/Time: Mar 01, 2025 09:36 AM Reporting Lab: [address] [address] Performing Lab: [address] [address] CREATININE 0.78 mg/dL 0.7-1.3 UREA NITROGEN 15.6 [...] 90.2 >60 Mar 08, 2025 12:00 PM [facility] FOLATE (STL-MA) SERUM Specimen Type: SERUM No comment entered. Ordering Provider: STU FABIAN Report Released Date/Time: Mar 01, 2025 09:36 AM Reporting Lab: [facility] [address] [place] [address] Performing Lab: [address] [address] FOLATE (STL-MA) 4.8 ng/mL L 7-20 Mar 08, 2025 12:00 PM [facility] VITAMIN D, 25-HYDROXY SERUM Specimen Type: SE RUM No comment entered. Ordering Provider: STU FABIAN Report Released Date/Time: Mar 01, 2025 09:36 AM Reporting Lab: [address] [address] Performing Lab: [address] [address] VITAMIN D, 25-HYDROXY 28.3 ng/mL L 30-96 Mar 08, 2025 12:00 PM [facility] HGA1C BLOOD Specimen Type: BLOOD No comment entered. Ordering Provider: STU FABIAN Report Released Date/Time: Mar 01, 2025 09:36 AM Reporting Lab: [address] [address] Performing Lab: [address] [address] HGA1C 6.6 Mar 08, 2025 12:00 PM [facility] LIPID PANEL (STL) PLASMA Specimen Type: PLASM A Comment: No hemolysis noted. Ordering Provider: STU FABIAN Report Released Date/Time: Mar 01, 2025 09:36 AM Reporting Lab: [address] [address] Performing Lab: [address] [address] CHOLESTEROL 136 mg/dL 0-200 TRIGLYCERIDE 138 mg/dL 0-150 CALCULATED LDL 70 mg/dL HDL(New) 38 mg/dL L >40 Mar 08, 2025 12:00 PM [facility] CBC BLOOD Specimen Type: BLOOD Comment: ~THIS TEST SHOULD ONLY BE USED BY HB Ordering Provider: STU FABIAN Report Released Date/Time: Mar 01, 2025 09:36 AM Reporting Lab: [address] [address] Performing Lab: [address] [address] WBC 3.3 10*3/uL L 3.6-11.2 RBC 3.50 [...] SCRNPERF YES Mar 08, 2025 12:00 PM [facility] CYSTATIN C EGFR PANELS (STL-PB-MA) PLASMA Spec imen Type: PLASMA Comment: Choice of which of the reported eGFR values to use depends on the clinical situation. For example, for patients with severe muscle wasting or reduced muscle mass, eGFR calculated using the 2012 cystatin equation may be preferred. Ordering Provider: STU FABIAN Report Released Date/Time: Mar 01, 2025 09:36 AM Reporting Lab: [address] [address] Performing Lab: [facility] [address] [address] CYSTATIN C 1.66 mg/L 0.57-1.80 CKD-EPI CYSTATIN C (2011) 36.6 >60 CKD-EPI CREAT-CYSC (2020) 57.4 >60 CREATININE (STL) 0.76 mg/dL 0.7-1.3 Mar 08, 2025 12:00 PM [facility] IRON/TIBC PROFILE SERUM Specimen Type: SERUM No comment entered. Ordering Provider: STU FABIAN Report Released Date/Time: Mar 01, 2025 09:36 AM Reporting Lab: [address] [address] Performing Lab: [address] [address] TIBC 190 ug/dL L 250-450 TRANSFERRIN 152 mg/dL L 163-344 IRON SATURATION 25 20-50 IRON 47 ug/dL L 65-175 Mar 08, 2025 12:00 PM [facility] FERRITIN SERUM Specimen Type: SERUM No comment entered. Ordering Provider: STU FABIAN Report Released Date/Time: Mar 01, 2025 09:36 AM Reporting Lab: [address] [address] Performing Lab: [address] [address] FERRITIN 61.70 ng/mL 22-275 Mar 08, 2025 12:00 PM [facility] URINALYSIS W/O REFLEX CX (STL-PB) URINE Speci men Type: URINE No comment entered. Ordering Provider: STU FABIAN Report Released Date/Time: Mar 01, 2025 09:36 AM Reporting Lab: [address] [address] Performing Lab: [address] [address] URINE COLOR Yellow Yellow U.BILIRUBIN Negative mg/dL [...] 1.038 H Mar 08, 2025 12:00 PM [facility] RETICULOCYTE PANEL BLOOD Specimen Type: BLOOD Comment: ~THIS TEST SHOULD ONLY BE USED BY [facility] Ordering Provider: STU FABIAN Report Released Date/Time: Mar 01, 2025 09:36 AM Reporting Lab: [address] [address] Performing Lab: [address] [address] RETIC RATIO 1.65 0.50-2.30 IRF 18.2 H 2.3-13.4 RETICULOCYTE HEMOGLOBIN EQUIVALENT 35.0 pg 28.2-36.6 RETIC COUNT,ABS 0.058 10*6/uL 0.022-0.10 1 Feb 10, 2025 12:51 PM [facility] GLUCOSE,BLOOD-poct (STL) BLOOD Specimen Type: BLOOD Comment: Test Performed by: [id number] Meter #: [id number] Ordering Provider: ANN BEASLEY Report Released Date/Time: Feb 10, 2025 12:53 PM Reporting Lab: [address] [address] Performing Lab: [address] [address] GLUCOSE,BLOOD-poct (STL) 199 mg/dL H 72-99 Feb 10, 2025 05:13 AM [facility] GLUCOSE,BLOOD-poct (STL) BLOOD Specimen Type: BLOOD Comment: Test Performed by: [id number] Meter #: [id number] Ordering Provider: ANN BEASLEY Report Released Date/Time: Feb 10, 2025 05:37 AM Reporting Lab: [place] [address] [address] Performing Lab: [place] [address] [address] GLUCOSE,BLOOD-poct (STL) 95 mg/dL 72-99 Feb 09, 2025 11:20 PM [facility] APTT PLASMA Specimen Type: PLASM A Comment: ~HEP BOLUS - CALL RESULTS Ordering Provider: JESSE BURGOS Report Released Date/Time: Feb 09, 2025 04:35 PM Reporting Lab: [place] [address] [address] Performing Lab: [address] [address] APTT 29.9 s 26.7-39.9 Feb 09, 2025 08:35 PM [facility] GLUCOSE,BLOOD-poct (STL) BLOOD Specimen Type: BLOOD Comment: Test Performed by: [id number] Meter #: [id number] Ordering Provider: ANN BEASLEY Report Released Date/Time: Feb 09, 2025 08:41 PM Reporting Lab: [place] [address] [address] Performing Lab: [address] [address] GLUCOSE,BLOOD-poct (STL) 159 mg/dL H 72-99 Feb [...] Feb 09, 2025 04:31 PM Reporting Lab: [facility] [address] [address] Performing Lab: [facility] [address] [place] [address] MRSA SURVL NARES DNA Negative Negative Feb 09, 2025 05:00 PM [facility] APTT PLASMA Specimen Type: PLASM A Comment: ~HEP BOLUS-CALL RESULTS Ordering Provider: JESSE BURGOS Report Released Date/Time: Feb 09, 2025 04:35 PM Reporting Lab: [place] [address] [address] Performing Lab: [address] [address] APTT 28.0 s 26.7-39.9 Feb 09, 2025 04:59 PM [facility] GLUCOSE,BLOOD-poct (STL) BLOOD Specimen Type: BLOOD Comment: Test Performed by: [id number] Meter #: [id number] Ordering Provider: ANN BEASLEY Report Released Date/Time: Feb 09, 2025 05:02 PM Reporting Lab: [facility] [address] [address] Performing Lab: [facility] [address] [place] [phone] GLUCOSE,BLOOD-poct (STL) 162 mg/dL H 72-99 Feb 09, 2025 01:55 PM [facility] LACTIC ACID (STL-PB) PLASMA Specimen Type: TAMARA SMA No comment entered. Ordering Provider: CHINO LEONG I Report Released Date/Time: Feb 09, 2025 01:44 PM Reporting Lab: [facility] [address] [address] Performing Lab: [address] [address] LACTIC ACID (STL-PB) 2.9 mmol/L H 0.5-2.0 Feb 09, 2025 11:52 AM [facility] BLOOD GAS PANEL ABG (L) VENOUS BLOOD Specimen Type : VENOUS BLOOD Comment: Test Performed by: [id number] Meter #: [id number] Ordering Provider: ANNIE ARGUETA Report Released Date/Time: Feb 09, 2025 11:53 AM Reporting Lab: [address] [address] Performing Lab: [address] [address] GEM PH 7.40 7.31-7.41 GEM PCO2 36 [...] Feb 09, 2025 01:19 PM Reporting Lab: [address] [address] Performing Lab: [address] [address] BRAIN NATRIURETIC PEPTIDE 341.6 pg/mL H 0- 100 Feb 09, 2025 11:31 AM [facility] TROPONIN I (STL) PLASMA Specimen Type: PLASM A Comment: No hemolysis noted. Ordering Provider: KESHIA HUYNH Report Released Date/Time: Feb 09, 2025 11:30 AM Reporting Lab: [address] [address] Performing Lab: [address] [address] TROPONIN I (STL) 0.019 ng/mL 0-0.033 Feb 09, 2025 11:31 AM [facility] COMPREHENSIVE METABOLIC PANEL PLASMA Specimen Type: PLASMA Comment: No hemolysis noted. Ordering Provider: KESHIA HUYNH Report Released Date/Time: Feb 09, 2025 11:30 AM Reporting Lab: [address] [address] Performing Lab: [address] [address] CREATININE 0.96 mg/dL 0.7-1.3 UREA NITROGEN 16.8 [...] >60 Feb 09, 2025 11:31 AM [facility] CBC BLOOD Specimen Type: BLOOD No comment entered. Ordering Provider: KESHIA HUYNH Report Released Date/Time: Feb 09, 2025 11:30 AM Reporting Lab: [address] [address] Performing Lab: [address] [place] [address] WBC 5.6 10*3/uL 3.6-11.2 RBC 3.71 10*6/uL [...] Specimen Type: BLOOD Comment: Test Performed by: [id number] Meter #: [id number] Ordering Provider: ANNIE ARGUETA Report Released Date/Time: Feb 09, 2025 11:22 AM Reporting Lab: [address] [address] Performing Lab: [address] [address] GLUCOSE,BLOOD-poct (STL) 161 mg/dL H 72-99 Vital Signs: All taken on the encounter date This section contains inpatient and outpatient Vital Signs collected on the date of the Encounter. Date/Time Temperature Pulse Blood Pressure Respiratory Rate SP02 Pain Height Weight Body Mass Index Source Feb 09, 2025 08:36 PM 97.6 F 72 /min 133/67 mm[Hg] 18 /min 97 % 0 [facility] Feb 09, 2025 07:17 PM 0 [facility] Feb 09, 2025 06:03 PM 98.0 F 81 /min 147/84 mm[Hg] 18 /min 97 % 0 [facility] Feb 09, 2025 04:11 PM 98.4 F 90 /min 134/75 mm[Hg] 18 /min 98 % 7 280.0 lb 36 [facility] Feb 09, 2025 02:43 PM 83 /min 154/73 mm[Hg] 16 /min 99 % [facility] Social History: Smoking Status (Most current) and Tobacco Use (All prior to encounter date) This section includes the most current, and the historical, smoking and tobacco- related health factors from the [place] facility where the Encounter took place. Current Smoking Status This section includes the most current smoking, or tobacco-related health factor, from the [place] facility where the Encounter took place. Date/Time Current Smoking Status Comment Vanessa eaton Jun 10, 2024 11:21 AM VA-TOBACCO USE FOR HANK CIGARETTES [facility] Tobacco Use History This section includes a history of the smoking, or tobacco-related health factors, that were collected on or before the date of the Encounter. The data comes from the [place] facility where the Encounter took place. Date/Time Smoking Status/Tobacco Use Comment Antoine garcia Jun 10, 2024 11:21 AM VA-TOBACCO USE FOR HANK CIGARETTES [facility] Radiology Reports: +/- 30 days of [...] the Encounter. The data comes from all [place] treatment facilities. Date/Time Radiology Report Provider Source Feb 10, 2025 11:29 AM US EXTREMITY VEINS BILAT (DVT): ISMAELTESSJOSE MARIA HUSAIN [id number] -1945 M Exm Date: FEB 10, 2025@11:29 Req Phys: THIRUNAVU,JESSE M Pat Loc: 6N S OE-JESSICA/02-10-2025@13:14 Im Loc: JESSICA-ULTRASOUND JESSICA Service: [id number] SERVICE [facility] [address] [place] [address] (Case [id number] COMPLETE) US EXTREMITY VEINS BILAT (DVT) (US Detailed) CPT:24713 Reason for Study: dx with PE Clinical History: Report Status: Verified Date Reported: FEB 10, 2025 Date Verified: FEB 10, 2025 Bakery Technician E-Sig:/ES/David Pastrana MD Report: CASE #: [id number] DATE:02/10/2025 12:51 PM CLINICAL HISTORY:dx with PE [...] verification. Dictated by Chastity Mantilla M.D. (Diagnostic Copy Center Associate). I, David Pastrana, have reviewed the images and report and concur with these findings. Primary Interpreting Staff: David Pastrana MD, Radiologist (Bakery Technician) Primary Interpreting Resident: Chastity Mantilla MD, Resident Physician /[facility]ID [facility] Feb 09, 2025 03:[address] PE CHEST W/3D: JOSE MARIA MATTHEWS [id number] -1945 M Exm Date: FEB 09, 2025@15:10 Req Phys: CHINO LEONG I Pat Loc: 6N S OE-JESSICA/02-09-2025@16:39 Img Loc: JESSICA-CT IMAGING JESSICA Service: Unknown [facility] [address] [place] [address] (Case [id number] COMPLETE) CT THORAX W/CONT (PE) (CT Detailed) CPT:81077 Contrast Media : unspecified contrast media Reason for Study: syncope, abormanl CXR Clinical History: Responsible Attending: Mariam Attending Contact Number: [id number] Resident Contact Number: syncope, abormanl CXR Allergies listed in CPRS chart: PENICILLIN, TETRACYCLINE, NEOSPORIN, CELEBREX, SIMVASTATIN Creatinine: CREATININE 0.96 mg/dL 02/09/2025 11:31 /eGFR: STL EGFR (within one year). CREATININE 0.96 mg/dL (02/09/25 11:31) Wt: 273.5 lb [124.06 kg] (09/10/2023 13:16) History of: Renal failure, chronic or acute renal disease: NO Report Status: Verified Date Reported: FEB 09, 2025 Date Verified: FEB 09, 2025 Bakery Technician E-Sig:/ES/REA MARLEY Report: CASE #: [id number] DATE:02/09/2025 4:08 PM CLINICAL HISTORY:syncope, abormanl CXR [...] confirmation. Dictated by Jamal Chiu M.D. (Diagnostic Copy Center Associate). I, Rea Marley, have reviewed the images and report and concur with these findings. Primary Interpreting Staff: REA MARLEY, Staff Physician (Bakery Technician) Primary Interpreting Resident: JAMAL CHIU, Resident Physician /[facility] Feb 09, 2025 01:[address] HEAD W/O CONT: JOSE MARIA MATTHEWS [id number] -1945 M Exm Date: FEB 09, 2025@13:01 Req Phys: CHINO LEONG I Pat Loc: JESSICA-EMERGENCY DEPT 2ND SHIFT (R Img Loc: JESSICA-CT IMAGING JESSICA Service: Unknown [address] [address] (Case [id number] COMPLETE) CT HEAD W/O CONT (CT Detailed) CPT:06879 Reason for Study: syncopal episode Clinical History: Responsible Attending: Mariam Attending Contact Number: [phone] Resident Contact Number: syncopal episode Allergies listed in CPRS chart: PENICILLIN, TETRACYCLINE, NEOSPORIN, CELEBREX, SIMVASTATIN Creatinine: CREATININE 0.90 mg/dL 08/07/2024 14:00 /eGFR: STL EGFR (within one year). CREATININE 0.90 mg/dL (08/07/24 14:00) Wt: 273.5 lb [124.06 kg] (09/10/2023 13:16) History of: Renal failure, chronic or acute renal disease: NO Report Status: Verified Date Reported: FEB 09, 2025 Date Verified: FEB 09, 2025 Bakery Technician E-Sig:/ES/REA MARLEY Report: CASE #: [id number] DATE:02/09/2025 1:35 PM CLINICAL HISTORY:syncopal episode TECHNIQUE: [...] process. Dictated by Jamal Chiu M.D. (Diagnostic Copy Center Associate). I, Rea Marley, have reviewed the images and report and concur with these findings. Primary Interpreting Staff: REA MARLEY, Staff Physician (Bakery Technician) Primary Interpreting Resident: JAMAL CHIU Resident Physician /[facility] Feb 09, 2025 11:32 AM CHEST PORTABLE: JOSE MARIA MATTHEWS [id number] -1945 M Exm Date: FEB 09, 2025@11:32 Req Phys: KESHIA HUYNH Loc: -EMERGENCY DEPT 2ND SHIFT (R Img Loc: -MAIN RADIOLOGY SUITE Service: [facility], [facility] [address] [place] [address] (Case [id number] COMPLETE) CHEST PORTABLE (RAD Detailed) CPT:50247 Proc Modifiers : Portable Reason for Study: hypotension Clinical History: Report Status: Verified Date Reported: FEB 09, 2025 Date Verified: FEB 09, 2025 Bakery Technician E-Sig:/ES/David Pastrana MD Report: CASE [id number]. AP portable view chest. COMPARISON: FINDINGS: Bilateral [...] effusion. Dictated by Jamal Chiu M.D. (Diagnostic Copy Center Associate). I, David Pastrana, have reviewed the images and report and concur with these findings. Primary Interpreting Staff: David Pastrana MD, Radiologist (Bakery Technician) Primary Interpreting Resident: JAMAL CHIU Resident Physician /[facility] Pathology Reports: +/- 30 days of [...] the Encounter. The data comes from all [place] treatment facilities. Date/Time Pathology Report Provider Source Feb 09, 2025 12:20 PM LR MICROBIOLOGY RE PORT: Accession [UID]: [id number] [[id number]] Received: Feb 09, 2025@12:29 Collection sample: B D BLD. BOTTLE Collection date: Feb 09, 2025 12:20 Site/Specimen: BLOOD Provider: ANNIE ARGUETA Test(s) ordered: BLOOD CULT (SET 1)............ completed: Feb 15, 2025 12:44 * BACTERIOLOGY FINAL REPORT => Feb 15, 2025 12:46 TECH CODE: [id number] Bacteriology Remark(s): 02/10/25 [facility] CULTURE IS NEGATIVE TO DATE, ALL POSITIVES ARE ROUTINELY CALLED. Culture shows NO GROWTH IN 6 DAYS. 02/15/25 CED =--=--=--=--=--=--=--=--=--=- -=--=--=--=--=--=--=--=--=--= --=--=--=--=--=--=-- Performing Laboratory: Bacteriology Report Performed By: [facility] CLIA# [id number] [address] [facility] [address] [place] [address] Bact Report Remark Performed By: [id number] [address] [facility] [address] Feb 09, 2025 12:15 PM LR MICROBIOLOGY RE PORT: Accession [UID]: [id number] [[id number]] Received: Feb 09, 2025@12:29 Collection sample: B D BLD. BOTTLE (SET 2)Collection date: Feb 09, 2025 12:15 Site/Specimen: BLOOD Provider: ANNIE ARGUETA T Test(s) ordered: BLOOD CULT (SET 2)............ completed: Feb 15, 2025 12:45 * BACTERIOLOGY FINAL REPORT => Feb 15, 2025 12:46 [facility] CODE: [id number] Bacteriology Remark(s): 02/10/25 CMG CULTURE IS NEGATIVE TO DATE, ALL POSITIVES ARE ROUTINELY CALLED. Culture shows NO GROWTH IN 6 DAYS. 02/15/25 CED =--=--=--=--=--=--=--=--=--=- -=--=--=--=--=--=--=--=--=--= --=--=--=--=--=--=-- Performing Laboratory: Bacteriology Report Performed By: [facility] [address] [facility] CLIA# [id number] [address] [facility] [address] [place] [address] Bact Report Remark Performed By: [facility] [address] [facility] CLIA# [id number] [address] [facility] [address] [place] [address] [facility] Encounter Notes: All associated encounter notes This section contains the clinical notes associated to the Encounter. Date/Time Encounter Note(s) Provider Source Feb 10, 2025 02:15 PM NURSING TRANSFER SUMMARIZATION DISCHARGE NOTE: LOCAL TITLE: GIANNI DISCHARGE/TRANSFER SUMMARY ST STANDARD TITLE: NURSING TRANSFER SUMMARIZATION DISCHARGE NOTE DATE OF NOTE: FEB 10, 2025@14:15 ENTRY DATE: FEB 10, 2025@15:45:55 AUTHOR: JENNIFER MONTES EXP COSIGNER: URGENCY: STATUS: COMPLETED DISCHARGE - TRANSFER SUMMARY Action: Discharge DISCHARGE INSTRUCTIONS GIVEN TO: Patient Diagnosis: Last Admission: 02/09/25 3:57:12 pm Admit Dx: SYNCOPE Age: 79 Allergies: PENICILLIN, TETRACYCLINE, NEOSPORIN, CELEBREX, SIMVASTATIN Patient Condition: Stable Vital Signs: Temperature: 99.3 F [37.4 C] (02/10/2025 12:43) Pulse: 80 (02/10/2025 12:43) Respiration: 2 (02/10/2025 12:43) Blood Pressure: 117/69 (02/10/2025 12:43) Pain: 2 (02/10/2025 12:43) Fall Risk Assessment Score: 60 Fall Risk Level: High Risk ===== SUICIDE SCREEN ===== C-SSRS Screen is Negative LEVEL OF LIFT REQUIRED: No assistance Safe Patient Handling - Patient Mobility Assessment Tool Isolation: No Precautions: Fall Orientation: x3 Hygiene: Self Care Nutrition: Modified Diet: diabetic Special needs: Assistance: Independent Bowel/Bladder: Date of last bowel movement: Jan Defecation: Normal Able to void: YES Continent: YES Catheter: No Wound / Skin Condition: See skin note STANDARD OF CARE / PRACTICE IMPLEMENTED: Indicate status at Discharge/Transfer: Stabilized Flu Shot Given: No Patient refused Pneumococcal Shot Given: No Patient refused MRSA Discharge Swab Done: No Reason: done on admission Discharged/Transfered to: Own home without home care services Accompanied by (Name & Relationship): self/ uber ride Next of Kin notified: NO Discharge/Transfer Mode: Ambulatory With Walker Discharged/Transferred with: Written Discharge Instructions Medications Return Appointments [facility] was informed of the date and time of his/her follow-up mental health appointments: YES [facility] was provided the opportunity to cancel or change his/her scheduled follow-up mental health appointments: YES The was educated about what to do and who to contact should he/she need to cancel the follow-up mental health appointment: YES Clothing / Valuables returned: Yes Describe: glasses x 2, walker, knee braces x 2 camo pants, blue shirt, green shirt, greyhoody, messenger bag, accucheck kit, flashlight Prosthetics with patient: Dentures/Partials with patient: None Glasses with patient: YES Other: YES walker Printed MD Instruction sheet with medication list reviewed and given to the patient/caregiver. Patient/Caregiver verifies medication list is complete and accurate. Patient/Caregiver appeared ready for instruction (good eye contact, appropriate questions, active participation, etc) Person(s) who received education: Patient Education Topic/Teaching Needs: Disease/Condition Medication Diet/Nutrition Follow-up Instructions Methods used Included: A copy of the Discharge Instructions Health Summary given to patient/caregiver and signed by patient/guardian. Patient's medications were reviewed and reconciled by discharge team. Teaching outcomes: Good level of understanding /es/ JENNIFER MONTES RN REGISTERED NURSE Signed: 02/10/2025 15:50 JENNIFER MONTES [facility] Feb 10, 2025 01:30 PM NURSING NOTE: LOCAL TITLE: VAAES NSG IV INSERTION AND MAINTENANCE STANDARD TITLE: NURSING NOTE DATE OF NOTE: FEB 10, 2025@13:30 ENTRY DATE: FEB 10, 2025@15:44 AUTHOR: JENNIFER MONTES COSIGNER: URGENCY: STATUS: COMPLETED Version 2.2 Charting in accordance with [facility] [place] STANDARD (LAAES) ACUTE INPATIENT/REHABILITATION NURSING ADMISSION SCREENING, ASSESSMENT, AND STANDARDS OF CARE IV Line Insertion and Maintenance Peripheral IV Line #1: Discontinue: Location: Right, Forearm Date/Time: Jan Reason for discontinuation: Therapy complete patient being discharged Line #2: Discontinue: Location: Left, Forearm Date/Time: Jan Reason for discontinuation: Therapy complete patient being discharged /cas/ JENNIFER MONTES RN REGISTERED NURSE Signed: 02/10/2025 15:45 JENNIFER MONTES [facility] Feb 10, 2025 01:24 PM DISCHARGE SUMMARY: LOCAL TITLE: DISCHARGE OBSERVATION MEDICINE STL STANDARD TITLE: DISCHARGE SUMMARY DICT DATE: FEB 10, 2025@15:14 ENTRY DATE: FEB 10, 2025@15:14:39 DICTATED BY: JESSE BURGOS ATTENDING: ELYSE MACHADO URGENCY: routine STATUS: COMPLETED PRINCIPAL DIAGNOSIS: pulmonary embolism SECONDARY DIAGNOSES: Significant Medical Problems PRESENT on Admission: hypertension, diabetes, post-traumatic stress disorder, migraines Significant Medical Problems NOT PRESENT on Admission: pulmonary embolism BRIEF HISTORY AND ESSENTIAL PHYSICAL FINDINGS: 79M with PMHx of HTN, DM2, PTSD, and migraines who presented to ED from echo lab after syncopal episode. Workup notable for pulmonary embolism and was started on eliquis for therapeutic anticoagulation. Patient presented to outpatient echo lab 11/ AM and during procedure slumped in chair and lost consciousness per the refurbish technician. BP was 88/70 and a rapid was called. Noted to have a pulse and recovered consciousness so was taken to the ED. Patient did not have any chest pain, SOB, palpitations, seizure-like symptoms, or orthostatic symptoms. Received 1L LR in ED with improvement in BP. Remained HDS and was not tachycardic or hypoxic. Given some RV strain noted on echo as well as EKG wih S1Q3T3, a CTPE was ordered and he was noted to have a right pulmonary artery segmental PE. Eliquis was started at 10 mg BID 02/09 PM. Cardiology was also consulted for their recommendations and agreed with eliquis. BLE venous doppler obtained 02/10 which was notable for occlusive thrombus at right profunda femoral vein at bifurcation of common femoral vein. Patient's risk factors for PE/DVT include older age, obesity, and somewhat sedentary lifestyle with walker use (although he insists he is walking regularly). No recent travel, surgery, or known malignancy history. Paroxysmal afib may be contributory. Discharged on eliquis (10 mg BID to complete 7 day course, then 5 mg BID). Could consider DVT unprovoked given relative lack of clear provoking events. May need indefinite anticoagulation but will defer to PCP (will identify as additional signer of this summary). OUTPATIENT PCP TO-DO's: [ ] F/U with PCP regarding length of eliquis treatment (may need indefinite AC given no clear provoking events) PHYSICAL EXAM ON DISCHARGE: General: no acute distress Skin: no rashes or bruising, has open scab on forehead HEENT: EOMI intact, conjuctivae clear Neck: normal ROM Lungs: CTAB, no crackles or wheezes Cardiovascular: RRR, normal S1 and S2, no m/r/g Abdominal: soft, NT, ND Extremities: 1+ edema BLE Musculoskeletal: no gross deformities Neuro: AOx4, moves all extremities spontaneously Psych: normal mood and affect HOSPITAL COURSE: 02/09: syncopal episode, with workup notable for PE. Started on eliquis. No hemodynamic instability or oxygen requirement. VSS. 02/10: no overnight events, vitals remained stable. BLE dopplers positive for R DVT. CONDITION ON DISCHARGE: stable FOLLOW-UP: 02/12/2025 13:00 [facility] 03/15/2025 13:30 [facility]SI 03/24/2025 13:00 [facility]-PACT [facility] TM 2 PCP NON-VA FOLLOW-UP CARE: N/A DISCHARGE MEDICATIONS: Active Outpatient Medications (including Supplies): Active Outpatient Medications Status 1) ACCU-CHEK GUIDE (GLUCOSE) TEST STRIP USE 1 STRIP FOR BLOOD ACTIVE TEST TWICE A DAY ALTERNATING TIMES EACH DAY *STABLE INSULIN THERAPY* Jun Indication: FOR BLOOD SUGAR MONITORING 2) ALCOHOL PREP PAD USE/APPLY PAD TO AFFECTED AREA(S) TWO TIMES ACTIVE A DAY BEFORE MEALS Indication: FOR SKIN CLEANSING 3) APIXABAN 5MG TAB TAKE TWO TABLETS BY MOUTH TWICE A DAY FOR 7 ACTIVE DAYS, THEN TAKE ONE TABLET TWICE A DAY Indication: FOR ANTICOAGULATION 4) BRIEF,BARIATRIC UNDERWEAR XXX-LG ATTENDS USE 1 BRIEF TO ACTIVE AFFECTED AREA(S) TWICE DAILY NEEDED Indication: FOR INCONTINENCE 5) CARVEDILOL 25MG TAB TAKE ONE-HALF TABLET BY MOUTH TWICE A ACTIVE DAY WITH FOOD Indication: FOR HIGH BLOOD PRESSURE 6) CODEINE 30/ACETAMINOPHEN 300MG TAB TAKE 1 TABLET BY MOUTH ACTIVE TWICE DAILY NEEDED . CAUTION: DO NOT EXCEED 4000MG PER DAY ACETAMINOPHEN (APAP) FROM ALL MEDS. Indication: FOR PAIN 7) INSULIN,GLARGINE 100 UNT/ML 3ML SOLOSTAR INJECT 23 UNITS ACTIVE UNDER THE SKIN ONCE A DAY ADMINISTER AT SAME TIME EACH DAY DIRECTED. DISCARD ANY OPEN CARTRIDGE AFTER 28 DAYS. Indication: FOR DIABETES 8) LANCET,SOFTCLIX USE LANCET FOR BLOOD TEST TWICE A DAY USE ACTIVE DIRECTED. Indication: FOR BLOOD SUGAR MONITORING 9) LIDOCAINE 5% PATCH APPLY 1 PATCH TO SKIN SITE ONCE A DAY ACTIVE APPLY PATCH AND PRESS FIRMLY FOR 10-15 SECONDS. KEEP ON FOR 12 HOURS THEN REMOVE PATCH FOR 12 HOURS. Indication: FOR LOCAL ANESTHESIA 10) METFORMIN HCL 500MG 24HR SA TAB TAKE TWO TABLETS BY MOUTH ACTIVE TWICE A DAY TAKE WITH FOOD. AVOID ALCOHOL. DISCONTINUE BEFORE GETTING XRAY DYE. Indication: FOR DIABETES 11) NALOXONE HCL 4MG/SPRAY SOLN NASAL SPRAY USE 1 SPRAY (4MG) ACTIVE (S) INTO ONE NOSTRIL ONLY ONE-TIME DO NOT PRIME NASAL SPRAY. SPRAY ONE DOSE IN ONE NOSTRIL, GIVE ADDITIONAL DOSE IF PATIENT DOES NOT START BREATHING WITHIN 2-3 MINUTES OR STOPS BREATHING AGAIN. CALL 911. IF USED, NOTIFY PROVIDER. Indication: FOR OPIOID OVERDOSE 12) PREGABALIN 75MG ORAL CAP TAKE ONE CAPSULE BY MOUTH TWICE A ACTIVE DAY *MAY CAUSE DROWSINESS* Indication: FOR NERVE PAIN 13) PSYLLIUM ORAL PWD MIX AND DRINK 1 TABLESPOONFUL BY MOUTH ACTIVE ONCE A DAY MIX IN GLASS OF WATER/JUICE. FLAVOR SUBSTITUTIONS MAY/WILL OCCUR AND SPECIFIC VARIETIES WILL NOT BE PROVIDED. Indication: FOR FIBER SUPPLEMENTATION Active Non-VA Medications Status 1) Non-VA ASPIRIN 81MG EC TAB 81MG BY MOUTH ONCE A DAY ACTIVE 2) Non-VA LANSOPRAZOLE (PREVACID) 15MG EC CAP 15MG BY MOUTH ACTIVE ONCE A DAY 15 Total Medications ALLERGIES OR DRUG SENSITIVITIES: PENICILLIN, TETRACYCLINE, NEOSPORIN, CELEBREX, SIMVASTATIN DIET: regular ACTIVITY: ad mercedez INFORMATION REGARDING CONDITION OR PROPER HOME AND/OR WOUND CARE: N/A RETURN TO WORK: patient is retired DISPOSITION: [x] Discharge home [ ] Discharge to home hospice [ ] Transfer to [facility] assisted [ ] Transfer to [facility] rehab [ ] Transfer to [facility] psychiatry [ ] Transfer to [facility] Spinal cord injury unit [ ] Transfer to [facility] hospice [ ] Transfer to outside facility: [ ] Transfer to outside facility under hospice: [ ] : autopsy approved by Next of Kin [ ] : autopsy not approved by Next of Kin [ ] : autopsy resulting from nursing education consultant's case [ ] Other: COMPETENCY: [x] The patient is competent in the VA sense of the word. [ ] The patient is not competent in the VA sense of the word. TOTAL TIME SPENT FOR FINAL HOSPITAL DISCHARGE: 60 minutes. Verified by T/MORRO /cas/ Elyse Machado MD Staff Physician Signed: 02/11/2025 14:39 for Jesse Burgos MD Resident / Physician /cas/ Elyse Machado MD Staff Physician Cosigned: 02/11/2025 14:39 Receipt Acknowledged By: 02/14/2025 17:35 /cas/ CARLOS ESQUIVEL M.D. STAFF PHYSICIAN EYLSE MADISON [facility] Feb 10, 2025 11:01 AM PHYSICIAN EDUCATION DISCHARGE NOTE: LOCAL TITLE: DISCHARGE INSTRUCTIONS [facility] STANDARD TITLE: PHYSICIAN EDUCATION DISCHARGE NOTE DATE OF NOTE: FEB 10, 2025@11:01 ENTRY DATE: FEB 10, 2025@11:01:16 AUTHOR: JESSE BURGOS EXP COSIGNER: ELYSE MACHADO URGENCY: STATUS: COMPLETED MEDICATIONS THAT WERE CHANGED: None MEDICATIONS THAT WERE STOPPED (AND REASON FOR STOPPING): None NEW MEDICATIONS WITH INSTRUCTIONS: [employer] - please take 10 mg twice a day for 6 more days (last day will be 02/15)- then take 5 mg twice a day for at least 3 months- follow-up with your PCP to discuss if you need to take the medication for longer DATE OF ADMISSION: Jan 15:57 DATE OF DISCHARGE: Jan REASON(S) FOR BEING IN THE HOSPITAL: You had a blood clot in your lung and needed to receive a blood thinner. DISCHARGE DIAGNOSIS: Pulmonary embolism YOUR OUTPATIENT CARE TEAM: Team Information Primary Care Team: [facility] PACT *NICK* TM 02 PC Provider: CARLOS ESQUIVEL Position: PHYSICIAN Non-PC Team: [facility] Non-PC Provider: RACHAEL THOMAS Position: ([facility]) REGISTERED FUTURE APPOINTMENTS: 02/12/2025 13:00 [facility] INPATIENT APPOINTMENT 03/15/2025 13:30 [facility] INPATIENT APPOINTMENT 03/24/2025 13:00 [facility]-PACT [facility] TM 2 PCP INPATIENT APPOINTMENT OTHER IMPORTANT THINGS TO DO: Follow-up with your PCP to discuss if you need to take the eliquis for longer than 3 months YOUR KNOWN ALLERGIES: PENICILLIN, TETRACYCLINE, NEOSPORIN, CELEBREX, SIMVASTATIN CALL YOUR DOCTOR IF YOU HAVE ANY OF THESE PROBLEMS: Pulmonary (breathing problems): Trouble breathing or change in your breathing, Worsening cough or change in sputum (phlegm that you cough up), Coughing up blood, Chills or fever of 101 or greater Cardiovascular Disease (heart problems): Inability to tolerate your usual activities, Feeling of pressure or pain to the chest, back, jaw, shoulder, or arm, Chest pain not relieved by using nitroglycerin tablets PHYSICAL ACTIVITY: Activity as tolerated DIET: Oral Nutrition/Diet Instructions Regular Diet: A healthy eating plan will maintain or promote good health. -Consume a diet rich in fruits, vegetables, whole grains, and healthy oils -Choose lean protein sources such as fish, poultry, beans/legumes, and non-fat or low-fat dairy sources. -Limit saturated fat such as fatty cuts of beef, álvarez, pork, chicken with skin, whole milk, cream, butter -Minimize consumption of sugary drinks, desserts -Limit deep-fried foods and fast foods -Limit the use of added table salts, salt-type seasoning, and processed foods -Speak to a Registered Dietitian about other healthy eating tips and meal planning DEVICES AT DISCHARGE: Not Applicable: The patient should be discharged with no urinary catheter or intravenous access TOBACCO & ALCOHOL: Discharge tobacco cessation medication(s) not indicated due to: Other reason(s) documented by physician/MANDOLIN REPAIR PERSON/PA or pharmacist Reason(s): No current tobacco use Discharge medications for alcohol/drug disorder not offered Reason: No current alcohol use DISCHARGE INSTRUCTIONAL MATERIALS: CONDITION OF PATIENT AT DISCHARGE: Stable PHYSICAL EXAMINATION OF PATIENT AT DISCHARGE If complete examination is provided, a progress note is NOT required on day of dischargeGeneral: no acute distressHEENT: EOMI, PERRLANeck: normal ROMCV: RRR, normal s1 and s2, no m/r/gLungs: CTAB, no crackles or wheezesExtremities: 1+ pitting edema bilaterally Neuro: AOx4, moves all extremities spontaneouslyMSK: no gross deformitiesPsych: normal mood and affect DISCHARGE DESTINATION: Home NOTE: If you are having feelings of Depression or Emotional Distress, or feel you just need to talk with someone, please call [phone] ([phone]), [facility] - Press 1. COPY OF DISCHARGE INSTRUCTIONS: The patient/family understands and will be provided a copy of these discharge instructions. DISCHARGE MEDICATION LIST: Active Outpatient Medications (including Supplies): Active Outpatient Medications Status = 1) ACCU-CHEK GUIDE (GLUCOSE) TEST STRIP USE 1 STRIP FOR BLOOD ACTIVE TEST TWICE A DAY ALTERNATING TIMES EACH DAY *STABLE INSULIN THERAPY* Jun Indication: FOR BLOOD SUGAR MONITORING 2) ALCOHOL PREP PAD USE/APPLY PAD TO AFFECTED AREA(S) TWO TIMES ACTIVE A DAY BEFORE MEALS Indication: FOR SKIN CLEANSING 3) APIXABAN 5MG TAB TAKE TWO TABLETS BY MOUTH TWICE A DAY FOR 7 ACTIVE DAYS, THEN TAKE ONE TABLET TWICE A DAY Indication: FOR ANTICOAGULATION 4) BRIEF,BARIATRIC UNDERWEAR XXX-LG ATTENDS USE 1 BRIEF TO ACTIVE AFFECTED AREA(S) TWICE DAILY NEEDED Indication: FOR INCONTINENCE 5) CARVEDILOL 25MG TAB TAKE ONE-HALF TABLET BY MOUTH TWICE A ACTIVE DAY WITH FOOD Indication: FOR HIGH BLOOD PRESSURE 6) CODEINE 30/ACETAMINOPHEN 300MG TAB TAKE 1 TABLET BY MOUTH ACTIVE TWICE DAILY NEEDED . CAUTION: DO NOT EXCEED 4000MG PER DAY ACETAMINOPHEN (APAP) FROM ALL MEDS. Indication: FOR PAIN 7) INSULIN,GLARGINE 100 UNT/ML 3ML SOLOSTAR INJECT 23 UNITS ACTIVE UNDER THE SKIN ONCE A DAY ADMINISTER AT SAME TIME EACH DAY DIRECTED. DISCARD ANY OPEN CARTRIDGE AFTER 28 DAYS. Indication: FOR DIABETES 8) LANCET,SOFTCLIX USE LANCET FOR BLOOD TEST TWICE A DAY USE ACTIVE DIRECTED. Indication: FOR BLOOD SUGAR MONITORING 9) LIDOCAINE 5% PATCH APPLY 1 PATCH TO SKIN SITE ONCE A DAY ACTIVE APPLY PATCH AND PRESS FIRMLY FOR 10-15 SECONDS. KEEP ON FOR 12 HOURS THEN REMOVE PATCH FOR 12 HOURS. Indication: FOR LOCAL ANESTHESIA 10) METFORMIN HCL 500MG 24HR SA TAB TAKE TWO TABLETS BY MOUTH ACTIVE TWICE A DAY TAKE WITH FOOD. AVOID ALCOHOL. DISCONTINUE BEFORE GETTING XRAY DYE. Indication: FOR DIABETES 11) PREGABALIN 75MG ORAL CAP TAKE ONE CAPSULE BY MOUTH TWICE A ACTIVE DAY *MAY CAUSE DROWSINESS* Indication: FOR NERVE PAIN 12) PSYLLIUM ORAL PWD MIX AND DRINK 1 TABLESPOONFUL BY MOUTH ACTIVE ONCE A DAY MIX IN GLASS OF WATER/JUICE. FLAVOR SUBSTITUTIONS MAY/WILL OCCUR AND SPECIFIC VARIETIES WILL NOT BE PROVIDED. Indication: FOR FIBER SUPPLEMENTATION Pending Outpatient Medications Status = 1) NALOXONE HCL 4MG/SPRAY SOLN NASAL SPRAY USE 1 SPRAY (4MG) PENDING INTO ONE NOSTRIL ONLY ONE-TIME DO NOT PRIME NASAL SPRAY. SPRAY ONE DOSE IN ONE NOSTRIL, GIVE ADDITIONAL DOSE IF PATIENT DOES NOT START BREATHING WITHIN 2-3 MINUTES OR STOPS BREATHING AGAIN. CALL 911. IF USED, NOTIFY PROVIDER. Indication: FOR OPIOID OVERDOSE Active Non-[facility] Medications Status = 1) Non-VA ASPIRIN 81MG EC TAB 81MG BY MOUTH ONCE A DAY ACTIVE 2) Non-VA LANSOPRAZOLE (PREVACID) 15MG EC CAP 15MG BY MOUTH ACTIVE ONCE A DAY 15 Total Medications Active Remote Medications: No Active Remote Medications for this patient /cas/ Jesse Burgos MD Resident / Physician Signed: 02/10/2025 11:07 /cas/ Elyse Machado MD Staff Physician Cosigned: 02/10/2025 14:42 JESSE BURGOS [facility] Feb 10, 2025 10:21 AM ADMINISTRATIVE NOTE: LOCAL TITLE: BENEFICIARY TRAVEL (BT) STANDARD TITLE: ADMINISTRATIVE NOTE DATE OF NOTE: FEB 10, 2025@10:21 ENTRY DATE: FEB 10, 2025@10:21:48 AUTHOR: JESSE BURGOS EXP COSIGNER: ELYSE MACHADO URGENCY: STATUS: COMPLETED BENEFICIARY TRAVEL COMMON CARRIER: This request is subject to Beneficiary Travel eligibility requirements and administrative approval. * can safely be transported or transfer in and out of a private vehicle, taxi, bus or other common carrier (public transportation). *Or [place] does not need to be on a stretcher during transport. *Or does not require restraints during transport. *Or [place] does not require direct supervision during transport. *Or [place] does not require acute medical care during transport. indicates they have no access to a privately owned vehicle. Suggested medically appropriate forms of transportation: Taxi/Hired Car Type of care being provided: Inpatient Admission/Discharge Date travel is to commence: Jan paper mill superintendent time (if needed): Estimated time frame [place] will require transportation: One Time From: Other Location: Comment: [place] To: (Facility Name): Home City/State: [address] [place] [address] Does the [place] have a certified master locksmith or need the assistance of an attendant? No Does the [place] travel with a service animal? No /cas/ Jesse Burgos MD Resident / Physician Signed: 02/10/2025 10:23 /cas/ Elyse Machado MD Staff Physician Cosigned: 02/10/2025 14:42 JESSE BURGOS [facility] Feb 10, 2025 10:20 AM NURSING NOTE: LOCAL T[facility] SKIN INSPECTION/ASSESSMENT STANDARD TITLE: NURSING NOTE DATE OF NOTE: FEB 10, 2025@10:20 ENTRY DATE: FEB 10, 2025@12:30:17 AUTHOR: JENNIFER MONTES EXP COSIGNER: URGENCY: STATUS: COMPLETED Assessment Type: SKIN REINSPECTION/REASSESSMENT Skin Inspection: Skin Color: Usual for ethnicity Skin Temperature: Warm Skin Moisture: Normal Skin Turgor: Elastic (normal) Ronal Skin Assessment: The patient's Ronal Scale Score is 19. The patient is considered not at risk for development of pressure ulcers/injuries. Sensory perception -- ability to respond meaningfully to pressure-related discomfort Slightly limited. Moisture -- degree to which skin is exposed to moisture Rarely moist. Activity -- ability to change and control body position Walks occasionally. Mobility -- ability to change and control body position Slightly limited. Nutrition -- usual food intake patterns Adequate. Friction and shear No apparent problem. INTERVENTIONS: The pressure injury interventions were not needed - patient/resident is not at risk. RISK FACTORS THAT INCREASE RISK FOR DEVELOPING PRESSURE INJURIES: The patient/resident has the following: Age over 75 Device(s): (nasogastric tubes, oxygen tubing, urinary catheters, cell phone etc.) Comment: PIV, tele SKIN ALTERATIONS: Pressure Ulcer/Injury Documentation from the past year: No data available SKIN ALTERATIONS: Wound Documentation from the past year: No data available for: Skin Integrity - Wound Skin Integrity - Wound Second Skin Integrity - Wound Third Skin Integrity - Wound Fourth Skin Integrity - Wound Fifth Skin Integrity - Wound Additional Localized abnormality: Bruising: Location(s): BUE and BLE Erythema blanchable: Location(s): buttock /cas/ JENNIFER MONTES RN REGISTERED NURSE Signed: 02/10/2025 12:32 JENNIFER MONTES [facility] Feb 10, 2025 09:30 AM NURSING INPATIENT NOTE: LOCAL TITLE: [facility] NURSING FREQUENT DOCUMENTATION STANDARD TITLE: NURSING INPATIENT NOTE DATE OF NOTE: FEB 10, 2025@09:30 ENTRY DATE: FEB 10, 2025@09:30:35 AUTHOR: JENNIFER MONTES EXP COSIGNER: URGENCY: STATUS: COMPLETED Version 2.4 Charting in accordance with [facility] [place] STAND[place] ([facility]) ACUTE INPATIENT/REHABILITATION NURSING ADMISSION SCREENING, ASSESSMENT, AND STANDARDS OF CARE ======== NATIONAL EARLY WARNING SCORE (NEWS) ======== The following vital measurements were used to complete the NEWS. Measurement DT TEMP PULSE RESP BP POx F(C) (L/MIN)(%) 02/10/2025 08:38 97.9(36.6) 91 18 142/81 95 The NEWS total is 2. 1. Temperature (C/F): Score = 0 36.1 - 38.0 C (96.9 - 100.4 F) 2. Pulse: Score = 1 91-110 3. Respirations: Score = 0 12-20 4. Blood Pressure (Only Systolic BP, mmHg): Score = 0 111-219 5. Pulse Oximetry: Score = 1 94% - 95% 6. Supplemental oxygen in use: Score = 0 No 7. AVPU: Score = 0 Alert /cas/ JENNIFRE MONTES RN REGISTERED NURSE Signed: 02/10/2025 09:[address] [facility] Feb 10, 2025 09:15 AM NURSING INPATIENT NOTE: LOCAL TITLE: [facility] ACUTE INPATIENT NSG SHIFT ASSESSMENT STANDARD TITLE: NURSING INPATIENT NOTE DATE OF NOTE: FEB 10, 2025@09:15 ENTRY DATE: FEB 10, 2025@12:20:48 AUTHOR: JENNIFER MONTES EXP COSIGNER: URGENCY: STATUS: COMPLETED Version 2.2 Charting in accordance with [facility] [place] STAND[place] ([facility]) ACUTE INPATIENT/REHABILITATION NURSING ADMISSION SCREENING, ASSESSMENT, AND STANDARDS OF CARE ======== ASSESSMENT ======== ======== HANDOFF ======== Bedside report and handoff completed Safety check completed ======== PAIN ASSESSMENT ======== Are you currently experiencing pain? Yes - DVPRS scale used to assess Location: lower back Defense and Veterans Pain Rating Scale (DVPRS): 7 Focus of attention, prevents doing daily activities Pain Score: 7 Patient's acceptable pain goal: 1 Hardly notice pain Are we making progress toward your acceptable pain goal? Yes Primary Pain Assessment: Pain Type: Chronic Describe Pain (Quality): Musculoskeletal: Aching Pain Interventions: Medication, see MAR Positioning ======== RAHMAN FALL SCALE & TIPS PROGRAM ======== Rahman Fall Scale: The Rahman Fall scale was performed and score was 60. This is indicative of high risk for falls. History of falling: immediate or within 3 months? No Secondary diagnosis: Yes Ambulatory aid: Crutches/cane(s)/walker Intravenous therapy/Heparin lock: Yes Gait/Transferring: Weakness Mental Status: Oriented to own ability/knows own limitations Fall Tailoring Interventions for Patient Safety (TIPS) Fall TIPS initiated with patient: Yes Interventions: Communicate recent fall or risk of harm Walking Aids: Walker Assistance out of bed: Call for assistance before getting out of bed Fall TIPS reviewed with patient: Yes Interventions: Communicate recent fall or risk of harm Walking Aids: Walker Assistance out of bed: Call for assistance before getting out of bed ======== ENVIRONMENTAL SAFETY MANAGEMENT ======== Implemented safety standards of care: -[place] to unit & environment -Adequate room lighting -Bed in low and locked position -Call light within reach -Personal items within reach -Traffic path in room free of clutter -Non-slip footwear -Upper/half length side rails up for bed mobility -Sensory aids within reach -Encourage patient to utilize sensory support ======== NEUROLOGICAL ======== Neurological Orientation: Oriented x4 Level of Consciousness (AVPU): Alert = Appears aware of and responsive to the environment on their own. Follows commands, opens eyes spontaneously, and tracks objects. Affect/behavior: Cooperative Calm ======== NEUROMUSCULAR/NEUROVASCULAR EXTREMITIES ASSESSMENT ======== Strength: Canteen Manager Bilateral: Strong Upper Extremity Bilateral: Full strength Lower Extremity Bilateral: Full strength Sensation: Upper Extremity Sensation Bilateral: Intact Lower Extremity Sensation Bilateral: Intact Temperature: Upper Extremity Temperature Bilateral: Warm Lower Extremity Temperature Bilateral: Warm ======== CARDIOVASCULAR ======== Heart Sounds: Normal (S1S2) Cardiac Rhythm Analysis: Other: Normal Sinus Rhythm w/ 1st AVB & IVCD, MF PVCs - Triplets, Ventricular Trigeminy Telemetry Transmitter Pack #: 52 Capillary Refill: All 4 extremities, less than or equal to 3 seconds. Edema: Present Pitting Location: BLE Measurement: 2+ Slight indentation. 15 seconds to rebound. ======== RESPIRATORY ======== Respirations: Unlabored Pattern: Regular Breath Sounds Auscultated: Anterior and posterior Left Upper Lobe: Clear Right Upper Lobe: Clear Right Middle Lobe: Clear Left Lower Lobe: Clear Right Lower Lobe: Clear ======== GASTROINTESTINAL ======== Last bowel movement: 02/10/2025 Elimination: Continent Abdominal Description: Protuberant (central obesity) Palpation: Soft, Non-tender Bowel Sounds: RUQ: Active LUQ: Active RLQ: Active LLQ: Active ======== GENITOURINARY ======== Elimination: Continent ======= INTEGUMENTARY/SKIN/WOUND - (INCLUDING RONAL) SEE NOTE: [facility] SKIN INPECTION/ASSESSMENT ======= ======== MOBILITY ======== Mobility Status: Independent: Able to stand and step without staff assistance Steady standing balance Equipment utilized: Walker Gait: Steady ======== IV LINES ======== Peripheral IV: Line #1: Assessment: Location: Right, Forearm Gauge: 18 Dressing Condition: Clean, dry, intact Transparent dressing Site Condition: No redness, swelling, pain Line Status: Flushed Line #2: Assessment: Location: Left, Forearm Gauge: 20 Dressing Condition: Clean, dry, intact Transparent dressing Site Condition: No redness, swelling, pain Line Status: Flushed ======== PSYCHOSOCIAL ======== Type of Emotional Support Provided: 1:1 discussion, Treatment discussion, Ventilation of feelings encouraged /cas/ JENNIFER MONTES RN REGISTERED NURSE Signed: 02/10/2025 12:28 JENNIFER MONTES [facility] Feb 10, 2025 06:55 AM CARDIOLOGY NOTE: LOCAL TITLE: CARDIOLOGY TELEMETRY ST STANDARD TITLE: CARDIOLOGY NOTE DATE OF NOTE: FEB 10, 2025@06:55 ENTRY DATE: FEB 10, 2025@06:55:27 AUTHOR: MARCIE YANES EXP COSIGNER: URGENCY: STATUS: COMPLETED Telemetry reviewed: Normal Sinus Rhythm w/ 1st AVB & IVCD, MF PVCs - Triplets, Ventricular Trigeminy TECHNICAL ADMINISTRATIVE ASSISTANT #: 52 RATE: 65-92 bpm SHIFT: -7 Shift COMMENT: fernando YANES [employer] AIDE - TELEMETRY Signed: 02/10/2025 07:00 MARCIE YANES [facility] Feb 10, 2025 05:49 AM NURSING INPATIENT NOTE: LOCAL TITLE: [facility] ACUTE INPATIENT NSG SHIFT ASSESSMENT STANDARD TITLE: NURSING INPATIENT NOTE DATE OF NOTE: FEB 10, 2025@05:49 ENTRY DATE: FEB 10, 2025@05:49:57 AUTHOR: MARY ROSSIGNER: URGENCY: STATUS: COMPLETED Version 2.2 Charting in accordance with [place] [employer] [place] STAND[place] ([facility]) ACUTE INPATIENT/REHABILITATION NURSING ADMISSION SCREENING, ASSESSMENT, AND STANDARDS OF CARE ======== REASSESSMENT ======== ======== ENVIRONMENTAL SAFETY MANAGEMENT ======== Implemented safety standards of care: -[place] to unit & environment -Adequate room lighting -Bed in low and locked position -Call light within reach -Personal items within reach -Traffic path in room free of clutter -Non-slip footwear -Upper/half length side rails up for bed mobility -Sensory aids within reach -Encourage patient to utilize sensory support Additional safety measures: Increased frequency of rounding ======== NEUROLOGICAL ======== Neurological Orientation: Oriented x4 Level of Consciousness (AVPU): Alert = Appears aware of and responsive to the environment on their own. Follows commands, opens eyes spontaneously, and tracks objects. ======== RESPIRATORY ======== Respirations: Unlabored Pattern: Regular ======= INTEGUMENTARY/SKIN/WOUND - (INCLUDING RONAL) SEE NOTE: [facility] SKIN INPECTION/ASSESSMENT ======= /cas/ MARY RUSS,RN REGISTERED NURSE Signed: 02/10/2025 05:54 MARY ROSS [facility] Feb 09, 2025 09:54 PM NURSING INPATIENT NOTE: LOCAL TITLE: [facility] NURSING FREQUENT DOCUMENTATION STANDARD TITLE: NURSING INPATIENT NOTE DATE OF NOTE: FEB 09, 2025@21:54 ENTRY DATE: FEB 09, 2025@21:54:45 AUTHOR: ELISA DIAL COSIGNER: URGENCY: STATUS: COMPLETED Version 2.4 Charting in accordance with [facility] [place] STAND[place] ([facility]) ACUTE INPATIENT/REHABILITATION NURSING ADMISSION SCREENING, ASSESSMENT, AND STANDARDS OF CARE ======== ACTIVITIES OF DAILY LIVING ======== Hygiene ADLs: Dressing: Upper Body: Moderate assist Pericare: Independent Personal Care: Minimal assist Toileting: Minimal assist ========= ACTIVITY/MOBILIZATION ========= Mobility Status: Minimum assist: Equipment utilized: Walker Gait: Unsteady [facility] - Highest Level of Mobility achieved this shift: 6 - Walked 10 steps or more (walked to restroom) ======== ENVIRONMENTAL SAFETY MANAGEMENT ======== Implemented safety standards of care: -[place] to unit & environment -Adequate room lighting -Bed in low and locked position -Call light within reach -Personal items within reach -Traffic path in room free of clutter -Non-slip footwear -Upper/half length side rails up for bed mobility -Sensory aids within reach -Encourage patient to utilize sensory support ======== GASTROINTESTINAL ======== Bowel movement reported by patient-unwitnessed Elimination: Continent ======== GENITOURINARY ======== Elimination: Continent /es/ ELISA [employer] SALES REPRESENTATIVE [employer] M[employer] OPERATOR Signed: 02/09/2025 21:56 ELISA DIAL [facility] Feb 09, 2025 09:00 PM NURSING INPATIENT NOTE: LOCAL T[facility] NURSING FREQUENT DOCUMENTATION STANDARD TITLE: NURSING INPATIENT NOTE DATE OF NOTE: FEB 09, 2025@21:00 ENTRY DATE: FEB 10, 2025@05:22:16 AUTHOR: MARY ROSS COSIGNER: URGENCY: STATUS: COMPLETED Version 2.4 Charting in accordance with [facility] [place] STAND[place] ([facility]) ACUTE INPATIENT/REHABILITATION NURSING ADMISSION SCREENING, ASSESSMENT, AND STANDARDS OF CARE ======== NATIONAL EARLY WARNING SCORE (NEWS) ======== The vital signs below were used for scoring: Temperature: 97.6 Pulse: 72 Blood Pressure: 133/67 Respiration: 18 Pulse Oximetry: 97 The NEWS total is 0. 1. Temperature [...] No 7. AVPU: Score = 0 Alert Patient Status: Remains on unit /es/ MARY RUSS,RN REGISTERED NURSE Signed: 02/10/2025 05:24 MARY ROSS [facility] Feb 09, 2025 09:00 PM NURSING INPATIENT NOTE: LOCAL TITLE: [facility] ACUTE INPATIENT NSG SHIFT ASSESSMENT STANDARD TITLE: NURSING INPATIENT NOTE DATE OF NOTE: FEB 09, 2025@21:00 ENTRY DATE: FEB 10, 2025@05:25:32 AUTHOR: MARY ROSS EXP COSIGNER: URGENCY: STATUS: COMPLETED Version 2.2 Charting in accordance with [facility] [place] STAND[place] ([facility]) ACUTE INPATIENT/REHABILITATION NURSING ADMISSION SCREENING, ASSESSMENT, AND STANDARDS OF CARE ======== ASSESSMENT ======== ======== HANDOFF ======== Bedside report and handoff completed Safety check completed ======== PAIN ASSESSMENT ======== Are you currently experiencing pain? Yes - DVPRS scale used to assess Location: lower back Defense and Veterans Pain Rating Scale (DVPRS): 7 Focus of attention, prevents doing daily activities Pain Score: 7 Patient's acceptable pain goal: 0 No pain Are we making progress toward your acceptable pain goal? Yes Primary Pain Assessment: Pain Type: Acute Describe Pain (Quality): Musculoskeletal: Aching Pain Interventions: Medication, see MAR ======== RAHMAN FALL SCALE & TIPS PROGRAM ======== Rahman Fall Scale: The Rahman Fall scale was performed and score was 35. This is indicative of moderate risk for falls. History of falling: immediate or within 3 months? No Secondary diagnosis: Yes Ambulatory aid: None/bedrest/nurse assist Intravenous therapy/Heparin lock: Yes Gait/Transferring: Normal/bed rest/immobile Mental Status: Oriented to own ability/knows own limitations Fall Tailoring Interventions for Patient Safety (TIPS) Fall TIPS initiated with patient: Yes Interventions: Communicate recent fall or risk of harm Walking Aids: Walker Assistance out of bed: Fall TIPS reviewed with patient: Yes Interventions: Communicate recent fall or risk of harm Walking Aids: Walker ======== ENVIRONMENTAL SAFETY MANAGEMENT ======== Implemented safety standards of care: -[place] to unit & environment -Adequate room lighting -Bed in low and locked position -Call light within reach -Personal items within reach -Traffic path in room free of clutter -Non-slip footwear -Upper/half length side rails up for bed mobility -Sensory aids within reach -Encourage patient to utilize sensory support Additional safety measures: Increased frequency of rounding ======== NEUROLOGICAL ======== Neurological Orientation: Oriented x4 Level of Consciousness (AVPU): Alert = Appears aware of and responsive to the environment on their own. Follows commands, opens eyes spontaneously, and tracks objects. Affect/behavior: Calm ======== NEUROMUSCULAR/NEUROVASCULAR EXTREMITIES ASSESSMENT ======== Strength: Canteen Manager Bilateral: Strong Upper Extremity Bilateral: Lower Extremity Bilateral: Unequal Lower Extremity Strength: Right: Moves against some resistance Left: Moves against some resistance Sensation: Upper Extremity Sensation Bilateral: Intact Lower Extremity Sensation Bilateral: Intact Temperature: Upper Extremity Temperature Bilateral: Warm Lower Extremity Temperature Bilateral: Warm ======== CARDIOVASCULAR ======== Heart Sounds: Normal (S1S2) Cardiac Rhythm Analysis: Normal Sinus Rhythm Telemetry Transmitter Pack #: 52 Capillary Refill: All 4 extremities, less than or equal to 3 seconds. Edema: Present Generalized Location: bilateral lower ex. Cardiovascular - Embolism Prevention: Comment: apixaban ======== RESPIRATORY ======== Respirations: Unlabored Pattern: Regular ======== GASTROINTESTINAL ======== Last bowel movement: 11/18/25 Bowel movement reported by patient-unwitnessed Passing flatus Palpation: Soft Bowel Sounds: RUQ: Active LUQ: Active RLQ: Active LLQ: Active ======== GENITOURINARY ======== Elimination: Continent ======= INTEGUMENTARY/SKIN/WOUND - (INCLUDING RONAL) SEE NOTE: [facility] SKIN INPECTION/ASSESSMENT ======= ======== ACTIVITIES OF DAILY LIVING ======== Hygiene ADLs: Oral Care: Non-ventilator patient: Patient teeth brushed: Independently The was educated that poor oral hygiene increases the risk of hospital acquired pneumonia and dental problems like gingivitis and tooth decay. [place] was educated using their preferred method and verbalized understanding. ======== MOBILITY ======== Mobility Status: Independent: Able to stand and step without staff assistance Steady standing balance Equipment utilized: Walker Gait: Steady ======== IV LINES ======== Peripheral IV: Line #1: Assessment: Location: Right, Forearm Gauge: 18 Dressing Condition: Clean, dry, intact Transparent dressing Site Condition: No redness, swelling, pain Line Status: Flushed Line #2: Assessment: Location: Left, Forearm Gauge: 20 Dressing Condition: Clean, dry, intact Transparent dressing Site Condition: No redness, swelling, pain Line Status: Flushed /cas/ MARY RUSS,RN REGISTERED NURSE Signed: 02/10/2025 05:42 MARY ROSS [facility] Feb 09, 2025 08:36 PM NURSING NOTE: LOCAL TITLE: [facility] SKIN INSPECTION/ASSESSMENT STANDARD TITLE: NURSING NOTE DATE OF NOTE: FEB 09, 2025@20:36 ENTRY DATE: FEB 10, 2025@05:14:57 AUTHOR: MARY ROSS EXP COSIGNER: URGENCY: STATUS: COMPLETED Assessment Type: SKIN REINSPECTION/REASSESSMENT Skin Inspection: Skin Color: Usual for ethnicity Skin Tempature: Warm Skin Moisture: Normal Skin Turgor: Elastic (normal) Ronal Skin Assessment: The patient's Ronal Scale Score is 19. The patient is considered not at risk for development of pressure ulcers/injuries. Sensory perception -- ability to respond meaningfully to pressure-related discomfort No impairment. Moisture -- degree to which skin is exposed to moisture Occasionally moist. Activity -- ability to change and control body position Walks occasionally. Mobility -- ability to change and control body position Slightly limited. Nutrition -- usual food intake patterns Adequate. Friction and shear No apparent problem. INTERVENTIONS: The pressure injury interventions were not needed - patient/resident is not at risk. RISK FACTORS THAT INCREASE RISK FOR DEVELOPING PRESSURE INJURIES: The patient/resident has the following: Age over 75 Device(s): (nasogastric tubes, oxygen tubing, urinary catheters, cell phone etc.) Comment: case monitor Neuropathy Other: piv SKIN ALTERATIONS: Wound Documentation from the past year: No data available for: Skin Integrity - Wound Skin Integrity - Wound Second Skin Integrity - Wound Third Skin Integrity - Wound Fourth Skin Integrity - Wound Fifth Skin Integrity - Wound Additional Localized abnormality: Bruising: Location(s): bilateral arms and legs Erythema blanchable: Location(s): buttocks red Other: Location(s): /cas/ MARY RUSS,RN REGISTERED NURSE Signed: 02/10/2025 05:21 MARY ROSS [facility] Feb 09, 2025 07:19 PM CARDIOLOGY NOTE: LOCAL TITLE: CARDIOLOGY TELEMETRY STL STANDARD TITLE: CARDIOLOGY NOTE DATE OF NOTE: FEB 09, 2025@19:19 ENTRY DATE: FEB 09, 2025@19:19:05 AUTHOR: RIDDHI MARCANO EXP COSIGNER: URGENCY: STATUS: COMPLETED Telemetry reviewed: Normal Sinus Rhythm 1'avb pvcs pacs TECHNICAL ADMINISTRATIVE ASSISTANT #: 52 RATE: 90s SHIFT: 3-11 Shift COMMENT: A hard copy of the telemetry strip was placed in the patient chart. /cas/ RIDDHI MARCANO RIM FIRE PRIMING OPERATOR Signed: 02/09/2025 19:[address] [facility] Feb 09, 2025 07:17 PM NURSING INPATIENT NOTE: LOCAL TITLE: [facility] ACUTE INPATIENT NSG SHIFT ASSESSMENT STANDARD TITLE: NURSING INPATIENT NOTE DATE OF NOTE: FEB 09, 2025@19:17 ENTRY DATE: FEB 09, 2025@19:17:17 AUTHOR: ASHER CHAMBERLAIN COSIGNER: URGENCY: STATUS: COMPLETED Version 2.2 Charting in accordance with [facility] [place] STANDARD (LAAES) ACUTE INPATIENT/REHABILITATION NURSING ADMISSION SCREENING, ASSESSMENT, AND STANDARDS OF CARE ======== ASSESSMENT ======== ======== PAIN ASSESSMENT ======== Are you currently experiencing pain? No: Pain Score: 0 ======== RAHMAN FALL SCALE & TIPS PROGRAM ======== Rahman Fall Scale: The Rahman Fall scale was performed and score was 40. This is indicative of moderate risk for falls. History of falling: immediate or within 3 months? No Secondary diagnosis: Yes Ambulatory aid: Crutches/cane(s)/walker Intravenous therapy/Heparin lock: No Gait/Transferring: Weakness Mental Status: Oriented to own ability/knows own limitations ======== ENVIRONMENTAL SAFETY MANAGEMENT ======== Implemented safety standards of care: -[place] to unit & environment -Adequate room lighting -Bed in low and locked position -Call light within reach -Personal items within reach -Traffic path in room free of clutter -Non-slip footwear -Upper/half length side rails up for bed mobility -Sensory aids within reach -Encourage patient to utilize sensory support ======== NEUROLOGICAL ======== Neurological Orientation: Oriented x4 Level of Consciousness (AVPU): Alert = Appears aware of and responsive to the environment on their own. Follows commands, opens eyes spontaneously, and tracks objects. ======== NEUROMUSCULAR/NEUROVASCULAR EXTREMITIES ASSESSMENT ======== Strength: Canteen Manager Bilateral: Weak Upper Extremity Bilateral: Lower Extremity Bilateral: ======== CARDIOVASCULAR ======== Cardiac Rhythm Analysis: Telemetry Transmitter Pack #: Edema: None ======== RESPIRATORY ======== Respirations: Unlabored ======== GASTROINTESTINAL ======== Last bowel movement: 02/09/2025 ======== GENITOURINARY ======== Elimination: Continent ======= INTEGUMENTARY/SKIN/WOUND - (INCLUDING RONAL) SEE NOTE: VAAES SKIN INPECTION/ASSESSMENT ======= ======== ACTIVITIES OF DAILY LIVING ======== Hygiene ADLs: Oral Care: Non-ventilator patient: Patient teeth brushed: Independently ======== IV LINES ======== Peripheral IV: Present on admission: Line #1: Location: Right, Forearm Gauge: 18 Line #2: Location: Left, Forearm Gauge: 20 ======== PSYCHOSOCIAL ======== Type of Emotional Support Provided: Treatment discussion /es/ PETRONA CAZARES, RN REGISTERED NURSE Signed: 02/09/2025 19:19 ASHER CHAMBERLAIN [facility] Feb 09, 2025 07:15 PM NURSING NOTE: LOCAL TITLE: [facility] SKIN INSPECTION/ASSESSMENT STANDARD TITLE: NURSING NOTE DATE OF NOTE: FEB 09, 2025@19:15 ENTRY DATE: FEB 09, 2025@19:15:40 AUTHOR: ASHER CHAMBERLAIN EXP COSIGNER: URGENCY: STATUS: COMPLETED Assessment Type: SKIN REINSPECTION/REASSESSMENT Skin Inspection: Skin Color: Usual for ethnicity Skin Tempature: Warm Skin Moisture: Normal Skin Turgor: Elastic (normal) Ronal Skin Assessment: The patient's Ronal Scale Score is 19. The patient is considered not at risk for development of pressure ulcers/injuries. Sensory perception -- ability to respond meaningfully to pressure-related discomfort Slightly limited. Moisture -- degree to which skin is exposed to moisture Rarely moist. Activity -- ability to change and control body position Walks occasionally. Mobility -- ability to change and control body position Slightly limited. Nutrition -- usual food intake patterns Adequate. Friction and shear No apparent problem. INTERVENTIONS: The pressure injury interventions were not needed - patient/resident is not at risk. SKIN ALTERATIONS: Pressure Ulcer/Injury Documentation from the past year: No data available SKIN ALTERATIONS: Wound Documentation from the past year: No data available for: Skin Integrity - Wound Skin Integrity - Wound Second Skin Integrity - Wound Third Skin Integrity - Wound Fourth Skin Integrity - Wound Fifth Skin Integrity - Wound Additional Localized abnormality: Bruising: Location(s): ALL OVER Other: Location(s): bottom red but blanchable /es/ PETRONA CAZARES, RN REGISTERED NURSE Signed: 02/09/2025 19:16 ASHER CHAMBERLAIN [facility] Feb 09, 2025 07:13 PM NURSING ADMISSION EVALUATION NOTE: LOCAL TITLE: [facility] ACUTE INPATIENT NSG ADMISSION SCREEN STANDARD TITLE: NURSING ADMISSION EVALUATION NOTE DATE OF NOTE: FEB 09, 2025@19:13 ENTRY DATE: FEB 09, 2025@19:13:49 AUTHOR: ASHER CHAMBERLAIN EXP COSIGNER: URGENCY: STATUS: COMPLETED ======= ALLERGY/ADVERSE DRUG REACTION (ADR) REVIEW (MRT5) ======= FACILITY ALLERGY/ADR -------- [facility] - BACITRACIN/NEOMYCIN/POLYMYX IN B [facility] - CELECOXIB [facility] - PENICILLIN [facility] - SILVER SULFADIAZINE [facility] - SIMVASTATIN [facility] - TETRACYCLINE [facility]OS[facility] PENICILLIN [facility] SIMVASTATIN [facility] TETRACYCLINE [facility] (664) BACITRACIN/NEOMYCIN/POLYMYX IN B [facility] (664) CELECOXIB [facility] (664) PENICILLIN [facility] (664) SIMVASTATIN [facility] (664) TETRACYCLINE Allergy/Adverse Drug Reaction Review to be conducted by: Provider ====== MEDICATION REVIEW (MRR1) ====== Did patient bring medication(s) from home? No Medication Review to be conducted by Provider ====== GENERAL INFORMATION ====== Admission information given by: Patient Is there a legal guardian/conservator? No Preferred language for discussing healthcare: Maltese Preferred mode of communication: Verbal Items at Bedside: Visual Aids: Standard Glasses Mobility device: WALKER ======= INFECTIOUS DISEASE RISK SCREEN ======= Travel Screen: Have you traveled within the [place] within the last 21 days? No Have you traveled outside the [place] within the last 21 days? No Within the last 14 days, have you had: No known exposure Other Exposure to Infectious Disease: No known exposure Patient reported the following symptoms: No Symptoms Present History of Multiple Drug Resistant Organism (MDRO): No Methicillin-resistant Staphylococcus aureus (MRSA) Swabbing: Informed verbal consent obtained Education provided ======= NUTRITION SCREENING ======= Malnutrition Screening Weight (Previous 6 months): Measurement DT WEIGHT LB(KG)[BMI] 02/09/2025 16:11 280.0(127.01)[36*] Lost weight recently without trying: No (0 points) Have you been eating poorly because of decreased appetite? No (0 points) Total Score: 0 Other Nutrition Screening Questions: The patient does not report any concerns with their teeth that would make it difficult to eat. The patient does not report overeating to the point of feeling sick or making themselves vomit. The patient denies gaining 10 lbs.(4.5 kgs) or more in the past 3 months without trying. The patient denies having any food allergies, intolerance, special dietary needs, or ethnic, cultural or scientology preferences that would affect their dietary needs. Food Insecurity Screening Within the past 12 months, you worried whether your food would run out before you got money to buy more. Never true Within the past 12 months, the food you bought just did not last you and you did not have the money to get more. Never true Food Insecurity Disposition: ====== RISK SCREENINGS ====== Alcohol Screen: Screen to be completed by: Provider *Does the patient consume alcohol? No Tobacco Use: Former - tobacco user Do you currently or have you ever used alternative nicotine products? No Substance Use Assessment: *Do you use any recreational drugs or narcotics (prescription or non-prescription)? No ===== SUICIDE SCREEN ===== Result of C-SSRS screener done was NEGATIVE. C-SSRS Screen is Negative ===== SPIRITUALITY ===== Are there scientology practices or spiritual concerns you want the quality specialist, your provider, and other health care team members to know? No ====== VISITOR INFORMATION ====== Will you have a primary support person while in the hospital? No Patient's Visitor Restriction preferences: No Privacy Review: No passcode provided due to opt out /PETRONA Caballero, RN REGISTERED NURSE Signed: 02/09/2025 19:15 ASHER CHAMBERLAIN [facility] Feb 09, 2025 07:11 PM NURSING TREATMENT PLAN NOTE: LOCAL TITLE: GIANNI PLAN OF CARE STANDARD TITLE: NURSING TREATMENT PLAN NOTE DATE OF NOTE: FEB 09, 2025@19:11 ENTRY DATE: FEB 09, 2025@19:11:42 AUTHOR: ASHER CHAMBERLAIN EXP COSIGNER: URGENCY: STATUS: COMPLETED GIANNI PLAN OF CARE Has ADDENDA Plan of Care and Discharge Plan (nurse) TREATMENT PLAN NURSING DIAGNOSIS: Potential for Infection Goals: *Prior to discharge, patient will:--Have urine that is clear, normal color and no foul odor Interventions: --Protect skin by keeping dry, clean and intact.(Nursing) Care plan status: Continued Progress toward goals documented continuously through progress notes Patient Education: Instruct: --Regarding medications (action and symptoms to report), treatments, and/or dressing changes /PETRONA Caballero, RN REGISTERED NURSE Signed: 02/09/2025 19:12 02/10/2025 ADDENDUM STATUS: COMPLETED The Nursing Care Plan has been reviewed. Progress on the Goals/Outcomes is as follows: Care plan status: Continue Progress toward goals documented continuously through progress notes. Discharge Planning: Assessment of patient/family's ability to manage care requirement post-discharge: FAIR Need identified at this time for referrals/resources post-discharge: UNCERTAIN Comment: Jonna berman/ MARY RUSS,RN REGISTERED NURSE Signed: 02/10/2025 05:03 ASHER CHAMBERLAIN [facility] Feb 09, 2025 04:46 PM INTERNAL MEDICINE H & P NOTE: LOCAL TITLE: MEDICINE HISTORY AND PHYSICAL STL STANDARD TITLE: INTERNAL MEDICINE H & P NOTE DATE OF NOTE: FEB 09, 2025@16:46 ENTRY DATE: FEB 09, 2025@16:47:04 AUTHOR: JESSE BURGOS EXP COSIGNER: ELYSE MACHADO URGENCY: STATUS: COMPLETED MEDICINE HISTORY AND PHYSICAL STL Has ADDENDA CC: syncope HPI: 79M with PMHx of HTN, DM2, PTSD, and migraines who presented to ED from echo lab after syncopal episode. Patient presented to outpatient echo lab this AM (reportedly ordered for hx of afib in OSH hospitalization which spontaneously reverted to sinus) and during procedure was noted to slump in his chair and lose conciousness per refurbish technician. No head strike. BP was 88/70. Patient was laid flat and rapid was called. He was noted to have a pulse and recovered consciousness. Immediately after event was dizzy and nauseated. Patient also noted some lip tingling after the event. Was taken to ED for futher evaluation. Upon interview in ED, patient states that dizzines, nausea, and lip tingling resolved shortly after LOC. He is unsure how long he was out for. Denies any preceding chest pain or shortness of breath. Denies any limb jerking, tongue biting, or urinary incontinence during or after syncopal episode. Denies any graying of vision, but did say he seemed to lose a sense of reality. He denies any orthostatic symptoms in the past or any lightheadedness. Denies any melena or hematochezia. Denies any fevers, chills, or urinary symptoms. He has been eating and drinking well and not missing any meals. Ate breakfast today. Received 1L LR in ED and tylenol 1gm IV. BP improved to 112/73. Some RV strain noted on echo, and EKG with S1Q3T3. CTPE noted to have segmental PE. Trop negative. Denies any calf swelling, recent travel, recent surgery, prolonged immobility, history of cancer, prior DVT/PE, or hemoptysis. Past Medical, Surgical and Psychiatric History: Problem List: 1) Diabetes Mellitus Type 2 (SCT 69439984) 2) Diabetic neuropathy 3) HTN - Hypertension (SCT [id number]) 4) Lumbar radiculopathy 5) Migraine without aura 6) Sarcoidosis 7) GERD - Gastro-Esophageal Reflux Disease ([facility] [id number]) 8) Burn of foot 9) Anxiety ([facility] [id number]) 10) Chronic Post-Traumatic Stress Disorder ([facility] [id number]) 11) Exposure to potentially hazardous substance Medications: Active Outpatient Medications (excluding Supplies): Issue Date Status Last Fill Active Outpatient Medications Refills Expiration = 1) ACCU-CHEK GUIDE (GLUCOSE) TEST STRIP Qty: ACTIVE Issue: 06/24/24 100 for 50 days Sig: USE 1 STRIP FOR BLOOD Refills: 4 Last : 12/26/24 TEST TWICE A DAY ALTERNATING TIMES EACH DAY Expr : 06/25/25 *STABLE INSULIN THERAPY* Jun Indication: FOR BLOOD SUGAR MONITORING 2) CARVEDILOL 25MG TAB Qty: 90 for 90 days Sig: ACTIVE Issue: 09/21/24 TAKE ONE-HALF TABLET BY MOUTH TWICE A DAY Refills: 1 Last : 12/14/24 WITH FOOD Expr : 09/22/25 Indication: FOR HIGH BLOOD PRESSURE 3) CODEINE 30/ACETAMINOPHEN 300MG TAB Qty: 60 ACTIVE Issue: 11/23/24 for 30 days Sig: TAKE 1 TABLET BY MOUTH Refills: 1 Last : 01/01/25 TWICE DAILY NEEDED . CAUTION: DO NOT Expr : 05/26/25 EXCEED 4000MG PER DAY ACETAMINOPHEN (APAP) FROM ALL MEDS. Indication: FOR PAIN 4) INSULIN,GLARGINE 100 UNT/ML 3ML SOLOSTAR ACTIVE Issue: 09/24/24 Qty: 5 for 90 days Sig: INJECT 23 UNITS Refills: 2 Last : 12/26/24 UNDER THE SKIN ONCE A DAY ADMINISTER AT Expr : 09/25/25 SAME TIME EACH DAY DIRECTED. DISCARD ANY OPEN CARTRIDGE AFTER 28 DAYS. Indication: FOR DIABETES 5) LIDOCAINE 5% PATCH Qty: 90 for 90 days Sig: ACTIVE Issue: 09/18/24 APPLY 1 PATCH TO SKIN SITE ONCE A DAY APPLY Refills: 1 Last : 09/19/24 PATCH AND PRESS FIRMLY FOR 10-15 SECONDS. Expr : 09/19/25 KEEP ON FOR 12 HOURS THEN REMOVE PATCH FOR 12 HOURS. Indication: FOR LOCAL ANESTHESIA 6) METFORMIN HCL 500MG 24HR SA TAB Qty: 360 for ACTIVE Issue: 12/07/24 90 days Sig: TAKE TWO TABLETS BY MOUTH TWICE Refills: 3 Last : 12/08/24 A DAY TAKE WITH FOOD. AVOID ALCOHOL. Expr : 12/08/25 DISCONTINUE BEFORE GETTING XRAY DYE. Indication: FOR DIABETES 7) PREGABALIN 75MG ORAL CAP Qty: 60 for 30 days ACTIVE Issue: 12/07/24 Sig: TAKE ONE CAPSULE BY MOUTH TWICE A DAY Refills: 5 Last : 12/13/24 *MAY CAUSE DROWSINESS* Expr : 06/09/25 Indication: FOR NERVE PAIN 8) PSYLLIUM ORAL PWD Qty: 390 for 30 days Sig: ACTIVE Issue: 12/07/24 MIX AND DRINK 1 TABLESPOONFUL BY MOUTH ONCE Refills: 6 Last : 12/08/24 A DAY MIX IN GLASS OF WATER/JUICE. FLAVOR Expr : 12/08/25 SUBSTITUTIONS MAY/WILL OCCUR AND SPECIFIC VARIETIES WILL NOT BE PROVIDED. Indication: FOR FIBER SUPPLEMENTATION Issue Date Status Last Fill Pending Outpatient Medications Refills Expiration = 1) NALOXONE HCL 4MG/SPRAY SOLN NASAL SPRAY Qty: PENDING 2 Sig: USE 1 SPRAY (4MG) INTO ONE NOSTRIL Refills: 0 ONLY ONE-TIME DO NOT PRIME NASAL SPRAY. SPRAY ONE DOSE IN ONE NOSTRIL, GIVE ADDITIONAL DOSE IF PATIENT DOES NOT START BREATHING WITHIN 2-3 MINUTES OR STOPS BREATHING AGAIN. CALL 911. IF USED, NOTIFY PROVIDER. Indication: FOR OPIOID OVERDOSE Start Date Active Non-VA Medications Status Stop Date = 1) Non-VA ASPIRIN 81MG EC TAB SiMG BY ACTIVE MOUTH ONCE A DAY 2) Non-VA LANSOPRAZOLE (PREVACID) 15MG EC CAP ACTIVE SiMG BY MOUTH ONCE A DAY 11 Total Medications Life Sustaining Treatment Orders Medications were reviewed with the patient/caregiver and discrepancies resolved. Allergies: PENICILLIN, TETRACYCLINE, NEOSPORIN, CELEBREX, SIMVASTATIN Social History: Denies alcohol use, former smoker (quit 1973, 3 pack year history), no illict drugs. 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 Family History: No family history of sudden cardiac Review of Systems: Review of systems reviewed in detail and negative except as noted in HPI. Physical Exam: Vitals: (most recent, as listed in the electronic record): B/P: 134/75 (02/09/2025 16:11) Pulse: 90 (02/09/2025 16:11) Temperature: 98.4 F [36.9 C] (02/09/2025 16:11) Weight: 280.0 lb [127.01 kg] (02/09/2025 16:11) Height: 74 in [188.0 cm] (08/06/2023 15:06) BMI: 36.0 Pain: 7 (02/09/2025 16:11) (0-10 scale) General: no acute distress Skin: no rashes or bruising, has open scab on forehead HEENT: EOMI intact, conjuctivae clear Neck: normal ROM Lungs: CTAB, no crackles or wheezes Cardiovascular: RRR, normal S1 and S2, no m/r/g Abdominal: soft, NT, ND Extremities: 1+ edema BLE Musculoskeletal: no gross deformities Neuro: AOx4, moves all extremities spontaneously Psych: normal mood and affect Labs: CBC: WBC 5.6 10*3/uL 02/09/2025 11:31 RBC 3.71 L 10*6/uL 02/09/2025 11:31 HGB 11.8 L g/dL 02/09/2025 11:31 HCT 37.1 L % 02/09/2025 11:31 MCV 100.0 fL 02/09/2025 11:31 MCH 31.8 pg 02/09/2025 11:31 MCHC 31.8 L g/dL 02/09/2025 11:31 RDW 15.2 H % 02/09/2025 11:31 PLT 157 10*3/uL 02/09/2025 11:31 MPV 12.8 H fL 02/09/2025 11:31 NEUTROPHILS, AUTO % 63 % 02/09/2025 11:31 LYMPHOCYTES, AUTO % 21 % 02/09/2025 11:31 MONOCYTES, AUTO % 8 % 02/09/2025 11:31 EOSINOPHILS, AUTO % 5 % 02/09/2025 11:31 BASOPHILS, AUTO % 2 % 02/09/2025 11:31 NEUTROPHILS, ABSOLUTE 3.52 10*3/uL 02/09/2025 11:31 LYMPHOCYTES, ABSOLUTE 1.17 10*3/uL 02/09/2025 11:31 MONOCYTES, ABSOLUTE 0.46 10*3/uL 02/09/2025 11:31 EOSINOPHILS, ABSOLUTE 0.28 10*3/uL 02/09/2025 11:31 BASOPHILS, ABSOLUTE 0.09 10*3/uL 02/09/2025 11:31 CMP: SODIUM 143 mEq/L 02/09/2025 11:31 POTASSIUM 4.2 mEq/L 02/09/2025 11:31 CHLORIDE 113 H mEq/L 02/09/2025 11:31 UREA NITROGEN 16.8 mg/dL 02/09/2025 11:31 CREATININE 0.96 mg/dL 02/09/2025 11:31 CALCIUM 8.4 mg/dL 02/09/2025 11:31 PROTEIN 5.6 L g/dL 02/09/2025 11:31 ALBUMIN 2.7 L g/dL 02/09/2025 11:31 ALKALINE PHOSPHATASE 94 U/L 02/09/2025 11:31 ALT/SGPT 13 U/L 02/09/2025 11:31 AST/SGOT 17 U/L 02/09/2025 11:31 TOTAL BILIRUBIN 0.6 mg/dL 02/09/2025 11:31 CARBON DIOXIDE 19 L mEq/L 02/09/2025 11:31 GLUCOSE 166 H mg/dL 02/09/2025 11:31 EGFR (CKD-EPI 2020) 80.4 02/09/2025 11:31 TROPONIN: TROPONIN I (STL) 0.019 ng/mL 02/09/2025 11:31 U/A: No URINALYSIS EO data found PT/INR: ____ PTT: ____ Imaging: Impression for CHEST PORTABLE, 02/09/25, case [id number] Basilar atelectasis versus less likely pneumonia at the left lung base. Tiny nodules versus vessels in the periphery of the right lower lobe. No CHF. No focal consolidation. No pleural effusion. Dictated by Jamal Chiu M.D. ([facility]). I, David Pastrana, have reviewed the images and report and concur with these findings. Assessment/Plan: 79M with PMHx of HTN, DM2, PTSD, and migraines who presented to ED from echo lab after syncopal episode. Workup notable for CTPE with segmental pulmonary embolism. #Acute PE right pulmonary artery middle lobe branches PE is likely etiology of syncopal episode given RV strain on echo. Patient is now HDS. No tachycardia or hypoxia. Will treat with DOAC. Possibly unprovoked given no recent surgery, travel, or immobility. Uncertain malignancy screening with no colonoscopy on file. CT chest without apparent malignancy. May have an undiagnosed arrhythmia. Per chart review, his echo had been ordered for evaluation of afib (which resolved spontaneously) during an OSH hospitalization. He also had a recent Holter monitor which ended yesterday. Other etiologies of syncope like vasovagal or seizure are lower on differential. PLAN: - eliquis 10 mg PO BID x 7 days, followed by eliquis maintenance therapy - telemetry - cardiology consulted, appreciate assistance with care - f/u property assessment monitor results - f/u echo final read - further investigate prior malignancy screening - orthostatics for further syncope eval All other conditions below line were present on admission (chronic conditions): #HTN: holding home coreg 12.5 BID iso hypotension #DM2: home regimen is lantus 23u and metformin; A1c 07/2024 6.9% - in hospital will do lantus 16u + LDSSI, accuchecks qAC + qHS #Chronic pain: continue home pregabalin, lidocaine patches, codeine/APAP #Constipation: continue home psylium Is the patient 65 or older? Yes Is the patient displaying signs of delirium? No Does the patient have a change in their mental status? No Is the patient displaying signs of confusion? No Is the patient displaying signs of disorientation? No This patient was screened for delirium. His/Her current risk level for delirium is : low The material part of the above assessment and plans was discussed with the patient and/or his/her family members who agreed and had no further questions. Total time spent: 60 Minutes /mary anne Burgos MD Resident / Physician Signed: 02/09/2025 17:40 /cas/ Elyse Machado MD Staff Physician Cosigned: 02/10/2025 14:32 02/10/2025 ADDENDUM STATUS: COMPLETED Patient seen and examined by me at bedside today. H&P extensively reviewed. I have also reviewed the labs, x-ray findings and medication profile. Management discussed at length with house staff. Agree with the management as outlined in the H&P and my additional note below. Mr. Matthews is a 79-year-old male with past medical history of hypertension, diabetes mellitus type 2, PTSD and migraines who presented to the emergency room after having a syncopal episode during his echocardiogram in the outpatient lab. He does not remember much about the episode and denies any chest pain, shortness of breath, nausea, vomiting or any other symptoms. At that time was noted that his blood pressure was 88/70 and that when he woke up he complained of being dizzy and nauseated. His echocardiogram showed right ventricular strain pattern for which he underwent a CT PE protocol that showed segmental pulmonary embolism. There is no obvious cause for the embolus. He is hemodynamically stable. We have started treatment with DOAC and will be discharging home patient today. Patient most likely will need lifelong anticoagulation but we will defer to his PCP. The patient may benefit from hematology consult as outpatient. Home today. /mary anne Machado MD Staff Physician Signed: 02/10/2025 15:50 [facility] Feb 09, 2025 04:31 PM MEDICATION MGT NOTE: LOCAL TITLE: HEPARIN PROTOCOL NOTE STL STANDARD TITLE: MEDICATION MGT NOTE DATE OF NOTE: FEB 09, 2025@16:31 ENTRY DATE: FEB 09, 2025@16:31:57 AUTHOR: JESSE BURGOS EXP COSIGNER: ELYSE MACHADO URGENCY: STATUS: COMPLETED HEPARIN PROTOCOL NOTE STL Has ADDENDA INITIAL DOSING FOR DVT/PE It has been determined that the patient has no allergy to heparin or history of heparin induced thrombocytopenia within past 3 months (decrease in platelets or any bleeding problem). HEPARIN DOSING ORDER Patient weight: 280.0 lb [127.01 kg] (02/09/2025 16:11) Recommended dose: BOLUS = 82752 total units; PTTs ordered. Initial infusion rate 2286 units/hr Witness:MD Yu (Identify as additional signer) /mary anne Burgos MD Resident / Physician Signed: 02/09/2025 16:37 /mary anne Machado MD Staff Physician Cosigned: 02/10/2025 14:43 02/09/2025 ADDENDUM STATUS: COMPLETED Heparin orders discontinued. Will instead start DOAC. /mary anne Burgos MD Resident / Physician Signed: 02/09/2025 16:45 /mary anne Machado MD Staff Physician Cosigned: 02/10/2025 14:43 JESSE BURGOS [facility] Feb 09, 2025 04:05 PM ADMINISTRATIVE NOTE: LOCAL TITLE: ADMINISTRATIVE STL STANDARD TITLE: ADMINISTRATIVE NOTE DATE OF NOTE: FEB 09, 2025@16:05 ENTRY DATE: FEB 09, 2025@16:07:33 AUTHOR: KHALIF HOFFMANN EXP COSIGNER: URGENCY: STATUS: COMPLETED PATIENT WAS ADMITTED UNDER OE STATUS @1605 ON 02/09/[address] DON MOLINA NOTIFIED OF ADMISSION VIA MACI /cas/ KHALIF HOFFMANN ADVANCED ZIGZAGGER Signed: 02/09/2025 16:09 Receipt Acknowledged By: 02/09/2025 23:38 /cas/ EDILSON MONTANEZ SUPERVISORY ZIGZAGGER KHALIF HOFFMANN [facility] Feb 09, 2025 04:04 PM RADIOLOGY PREPROCEDURE NOTE: LOCAL TITLE: RADIOLOGY CONTRAST ADMINISTRATION STANDARD TITLE: RADIOLOGY PREPROCEDURE NOTE DATE OF NOTE: FEB 09, 2025@16:04 ENTRY DATE: FEB 09, 2025@16:04:35 AUTHOR: INDIGO GOODMAN EXP COSIGNER: URGENCY: STATUS: COMPLETED CT and General Radiology Contrast Questionnaire PATIENT NAME: JOSE MARIA MATTHEWS SSN: [id number] DATE: Jan EXAM: CT DE PE CHEST Referring Physician: NISHA LEONG TO BE COMPLETED PRIOR TO CONTRAST ADMINISTRATION: 1. Has the patient been instructed about the procedure? Yes 2. Is there a history of food or drug allergies? No 3. Is there history of complication with IV contrast? No 4. Is EFGR less than 30? No eGFR: STL EGFR (within one year). CREATININE 0.96 mg/dL (02/09/25 11:31) CREATININE 0.96 mg/dL 02/09/2025 11:31 EGFR (CKD-EPI 2020) 80.4 02/09/2025 11:31 5. Is EFGR result for inpatient within 24 hrs? NA 6. Is EFGR result for outpatient with history of renal insufficiency within 7 days or for outpatient with history of normal renal function within 30 days? Yes 7. Is the patient's Medical Reconciliation list correct?Yes 8. Is the patient on metformin? No 9. Has the patient violated NPO requirements? No 10. Does the patient have a history of multiple myeloma? No 11. Does the patient have sickle cell anemia? No 12. Is the patient a breast-feeding female? NA 13. Is there a chance the patient could be ? NA 14. Does the patient have only one kidney? No 15. The patient has had no iodinated contrast in the past 24 hours? No 16. The exception for Diagnostic Imaging Service policy was NONE and this was discussed and Approve by Vamshi BASSETT for contrast administration. 17. If patient meets DIS policy criteria for high risk for contrast reaction or toxicity, Informed Consent has been obtained by: NONE 18. The information was reviewed and meets Diagnostic Imaging Policy to administer contrast. Yes DIS Policy: 1,5,6,7,16,17,18 =Y or NA // 2,3,4,8,9,10,11,12,13,14,15 = N Name of Contrast: OMNIPAQUE 350 Lot#: [id number] Dosage: 85 ML'S @ 4 ML'S Injection Site: 18 GA RT. FOREARM /cas/ INDIGO Acosta Signed: 02/09/2025 16:06 INDIGO GOODMAN [facility] Feb 09, 2025 11:15 AM RN NOTE: LOCAL TITLE: RAPID RESPONSE TEAM STL STANDARD TITLE: RN NOTE DATE OF NOTE: FEB 09, 2025@11:15 ENTRY DATE: FEB 09, 2025@16:32:45 AUTHOR: RYLEE GARCIA EXP COSIGNER: URGENCY: STATUS: COMPLETED 2. Were Vital Signs taken within 4 hours of the SECURITY SOFTWARE ENGINEER call? No Last Set of Vital Signs: Date & Time: HR: BP: RR: SpO2: Temp: Vital Signs taken at time of SECURITY SOFTWARE ENGINEER call HR: 83 BP: 88/70 RR: 16 SpO2: 98 Temp: 97.9 GCS: E: V: M: Score: Has patient recently been in ED, ICU or PACU? No Were Treatments/Interventions performed? No Pt taken directly to ED 5. What was the Disposition/Patient Outcome? SECURITY SOFTWARE ENGINEER Outcome: Transfer to ER 6. Response Time first SECURITY SOFTWARE ENGINEER member arrived: 1116 Time last SECURITY SOFTWARE ENGINEER member departed: 1145 Members present: [employer] Khalif Major RN RT Princess SECURITY SOFTWARE ENGINEER Provider Dr Arriaga Nursing [employer] Rylee Garcia RN Chief Executive Officer Nguyen Lowe Pt in echo lab and became lethargic and hypotensive. SECURITY SOFTWARE ENGINEER called. Pt responsive and states he feels dizzy and unwell. Taken to ED for evaluation. /cas/ RYLEE GARCIA Signed: 02/09/2025 16:43 RYLEE GARCIA [facility]
--- OUTSIDE RECORDS SUMMARY | 2025-02-10 03:17 | XMS_ITS ---
Author Name [facility] ([place]) Organization [facility] ([place]) Address [address] [place] [address] Care Team Providers Care Speech Therapy Teacher Name Role Phone GRACE QUINN Primary Care Provider UnavailKAYODE Marquez Primary Care Provider Unavail able RACHAEL CARDONA Unavailable Unavailable GABRIELLE QUINN Unavailable Unavailable ROBINSON DAWKINS Unavailable Unavailable CALVIN OSEI Unavailable Unavailable ABDON PECK Unavailable Unavailable CHINYERE DOMINGUEZ Unavailable Unavailable VILMA CEDILLO Unavailable Unavailable AUSTIN HOWARD Unavailable Unavailable STU FABIAN Primary Care Provider UnavailCÉSAR Naik Unavailable Unavailable SHARON HOLOCMB Unavailable Unavailable TATIANNA MONROE Unavailable Unavailable PATRICE [...] Medina's Name Patient's Relationship to Policy Medina [facility] MEDICARE SUPPLEMEN SHEILA PLANF Mar 25, 2016 [facility] [id number] [phone] ISMAELSANARAJI JOSE MARIA PATIENT [facility] MEDICARE SUPPLEMEN SHEILA PLANF Oct 23, 2010 PLANF [id number] [phone] ISMAELSANARAJI JOSE MARIA PATIENT [facility] MEDICARE SUPPLEMEN SHEILA PLANF Mar 25, 2016 PLANF [id number] JOSE MARIA WHITE AARP MED SUPP MEDICARE HERB SOSA PLANF Oct 23, 2010 PLANF [id number] [phone] JOSE MARIA WHITE AARP [facility] (WNR) MEDICARE ADVANTAGE [facility] (WNR) July 24, 2023 [id number] JOSE MARIA WHITE PATIENT MEDICARE (WNR) MEDICARE (M) PART A July 24, 2003 PART A [id number] JOSE MARIA WHITE PATIENT MEDICARE (WNR) MEDICARE (M) PART B July 24, 2003 PART B [id number] JOSE MARIA WHITE PATIENT MEDICARE (WNR) MEDICARE (M) PART A July 24, 2003 PART A [id number] JOSE MARIA WHITE PATIENT [facility] (WNR) MEDICARE ADVANTAGE MCR (WNR) Mar 25, 2024 [id number] JOSE MARIA WHITE [facility] (WNR) MEDICARE ADVANTAGE MCR (WNR) Mar 25, 2024 [id number] JOSE MARIA WHITE PATIENT Selected Encounter This section includes the information on record at [place] for the Encounter. Date/Time Encounter Type Encounter Description Reason Provider Source Feb 10, 2025 09:17 AM MTMS BY PHARM GROCERY CLERK STOCKING 15 MIN CLINICAL PHARMACY ICD-10-CM Z51.81 Encounter for therapeutic drug level monitoring ARTEM ANDRE [facility] Encounter Template Text not used by [place] Assessments - Encounter Diagnoses This section includes the primary and secondary diagnoses documented for the Encounter. Date/Time Primary/Secondary Diagnosis Diagnosis Name Provider Source Feb 10, 2025 09:26 AM PRIMARY Encounter for therapeutic drug level monitoring ARTEM ANDRE [facility] Feb 10, 2025 09:26 AM SECONDARY nursing home (current) use of anticoagulants ARTEM ANDRE [facility] Feb 10, 2025 09:26 AM SECONDARY Personal history of other venous thrombosis and embolism ARTEM ANDRE [facility] Plan of Treatment: Future Appointments (+ 6 months) and Future Tests (+/- 45 days) The Plan of Treatment section includes future care activities for the patient from all [place] [facility] This section includes future appointments and future orders which are active, pending or scheduled. Future Appointments This section includes appointments that were scheduled to occur 6 months from the date of the Encounter, up to a maximum of 20 appointments. The data comes from all [facility]. Appointment Date/Time Appointment Type Appointme nt Facility Name Feb 12, 2025 01:30 PM AMBULATORY - NONE [facility] Mar 15, 2025 01:30 PM AMBULATORY - NONE [facility] Mar 31, 2025 10:00 AM AMBULATORY - MEDICINE [facility] Mar 31, 2025 12:00 PM AMBULATORY - SURGERY [facility] Mar 31, 2025 02:30 PM AMBULATORY - MEDICINE [facility] Apr 09, 2025 11:00 AM AMBULATORY - MEDICINE [facility] May 03, 2025 03:00 PM AMBULATORY - NONE [facility] Active, Pending, and Scheduled Orders This section [...] from all [facility]. 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 (STL) GOLD/RED SST SERUM [facility] Jan 15, 2025 12:00 AM Laboratory - Chemistry Order HEPATITIS B SURFACE AB PNL GOLD/RED SST SERUM [facility] Jan 15, 2025 12:00 AM Laboratory - Chemistry Order HEPATITIS A IGG AB (STL) GOLD/RED SST SERUM SP [facility] Jan 15, 2025 12:00 AM Laboratory - Chemistry Order ALPHA-1 ANTITRYPSIN (STL-PB) GOLD/RED SST SERUM SP [facility] Jan 15, 2025 12:00 AM Laboratory - Chemistry Order FERRITIN GOLD/RED SST SERUM [facility] Jan 15, 2025 12:00 AM Laboratory - Chemistry Order HEPATIC FUNTION PANEL (STL) GREEN LI/HEP BLD/PLAS PLASMA SP [facility] Jan 15, 2025 12:00 AM Laboratory - Chemistry Order HEP C Ab HCV Ab (STL) GOLD/RED SST SERUM SP [facility] Feb 09, 2025 12:18 PM Laboratory - Chemistry Order URINALYSIS W/ CX REFLEX (STL-PB) URN - CLEAN CATCH URINE WC ONCE [facility] Mar 01, 2025 12:00 AM Laboratory - Microbiology Order C&S URINE URINE HOLT WC ONCE [facility] Mar 01, 2025 12:00 AM Laboratory - Chemistry Order OCCULT BLOOD FIT X1 SCREEN STOOL FECES SP [facility] Mar 01, 2025 12:00 AM Laboratory - Chemistry Order ANTITHROMBIN III ACTIVITY BLUE,LIGHT(SODIUM CITRATE) PLASMA [facility] Mar 01, 2025 09:36 AM Consult Order EYE CLINIC OUTPT JESSICA Cons Raker [employer] [facility] Mar 01, 2025 09:36 AM Consult Order VASCULAR LAB OUTPT STL Cons Raker [employer] [facility] Mar 01, 2025 09:36 AM Consult Order CARDIOLOGY OUTPT JESSICA Cons Raker [employer] [facility] Mar 08, 2025 12:00 PM Laboratory - Chemistry Order FACTOR V(LEIDEN)MUTATION ANALYSIS BLOOD [facility] Mar 09, 2025 12:00 AM Laboratory - Chemistry Order URINE DRUG SCREEN (STL) URINE YELLOW [facility] Mar 15, 2025 12:00 AM Laboratory - Chemistry Order LACTOFERRIN,STOOL (STL-MA-PB) STOOL FECES SP [facility] Mar 15, 2025 12:00 AM Laboratory - Chemistry Order ANTI-NUCLEAR ANTIBODY (STL-PB) GOLD/RED SST SERUM [facility] Mar 15, 2025 12:00 AM Laboratory - Chemistry Order HEP C Ab HCV Ab (STL) GOLD/RED SST SERUM [facility] Mar 15, 2025 12:00 AM Laboratory - Chemistry Order ACTIN (SMOOTHMUSCLE) ANTIBODY IGG GOLD/RED SST SERUM [facility] Mar 15, 2025 12:00 AM Laboratory - Chemistry Order ANTI-MITOCHONDRIAL AB (STL-PB) GOLD/RED SST SERUM [facility] Mar 15, 2025 12:00 AM Laboratory - Chemistry Order IGG (STL) GOLD/RED SST SERUM [facility] Mar 15, 2025 12:00 AM Laboratory - Chemistry Order HEPATITIS B SURFACE AB PNL GOLD/RED SST SERUM [facility] Mar 15, 2025 12:00 AM Laboratory - Chemistry Order HEP B CORE AB TOTAL. (STL) GOLD/RED SST SERUM [facility] Mar 15, 2025 12:00 AM Laboratory - Chemistry Order HEP HB S Ag (AUSRIA) (STL) GOLD/RED SST SERUM SP [facility] Mar 15, 2025 12:00 AM Laboratory - Chemistry Order HEPATITIS A IGG AB (L) GOLD/RED SST SERUM SP [facility] Mar 15, 2025 12:00 AM Laboratory - Chemistry Order CELIAC DISEASE PANEL (STL-MRN) GOLD/RED SST SERUM SP ONCE [facility] Mar 15, 2025 12:00 AM Laboratory - Chemistry Order ALPHA-1 ANTITRYPSIN (STL-PB) GOLD/RED SST SERUM SP [facility] Mar 15, 2025 12:00 AM Imaging - General Radiology Order SPINE LUMBOSACRAL 2 OR 3 VIEWS [facility] Mar 15, 2025 10:49 AM Laboratory - Chemistry Order SHIGA TOXIN 1 STOOL FECES WC ONCE [facility] Mar 15, 2025 10:49 AM Laboratory - Chemistry Order SHIGA TOXIN 2 STOOL FECES WC ONCE [facility] Mar 15, 2025 10:49 AM Laboratory - Microbiology Order C&S STOOL STOOL FECES [facility] Mar 15, 2025 10:49 AM Laboratory - Chemistry Order C DIFF EPI PCR PNL STOOL, PARA-PACK CLEAN FECES SP [facility] Mar 15, 2025 10:49 AM Laboratory - Microbiology Order PARASITE EXAM (STL) STOOL, PARA-PACK CLEAN FECES [facility] Mar 15, 2025 10:49 AM Consult Order GI DIAGNOSTIC COLONOSCOPY OUTPATIENT JESSICA Cons Raker [employer] [facility] Mar 19, 2025 12:00 AM Laboratory - Chemistry Order PROTEIN C ACTIVITY(L-MA-PB) BLUE,LIGHT(SODIUM CITRATE) PLASMA SP [facility] Lab Results: +/- 30 days of the encounter This section includes the Chemistry and Hematology Lab Results on record with [place] for the patient. Radiology Reports and Pathology Reports are provided separately, in subsequent sections. Lab Results This section contains the Chemistry/Hematology Results that were resulted 30 days before or 30 daysafter the date of the Encounter. Date/Time Source Result Type Result - Unit Interpretation Reference Range Specimen Type Comment Mar 08, 2025 12:00 PM [facility] PROTHROMBIN GENE ANALYSIS FACTOR II MUT BLOOD Specimen Type: BLOOD Comment: RESULT: [id number] VARIANT NOT DETECTED INTERPRETATION: This individual is negative (normal) for the [id number] variant in the Prothrombin/Fact or II gene. Increased risk of thrombophilia can be caused by a variety of genetic and non-genetic factors not screened for by this assay. Ordering Provider: STU FABIAN Report Released Date/Time: Mar 01, 2025 09:36 AM Reporting Lab: [facility] [address] [place] [phone] Performing Lab: [address] PROTHROMBIN GENE ANALYSIS FACTOR II MUT NEG Mar 08, 2025 12:00 PM [facility] PROTEIN S ACTIVITY(STL-MA-PB) PLASMA Specimen Type: PLASMA Comment: Test Performed by [facility], [employer] [facility], [address] [place] [address] Juan Hassan M.D., Ph.D., Director of Laboratories , [facility] [id number] Ordering Provider: STU FABIAN Report Released Date/Time: Mar 01, 2025 09:36 AM Reporting Lab: [facility] [address] [facility] [address] Performing Lab: [address] PROTEIN S ACTIVITY(STL-MA-PB) 94 70 -150 Mar 08, 2025 12:00 PM [facility] PROTEIN URINE URINE Specimen Type: URINE No comment entered. Ordering Provider: STU FABIAN Report Released Date/Time: Mar 01, 2025 09:36 AM Reporting Lab: [address] [address] Performing Lab: [address] [address] PROTEIN URINE 20.5 mg/dL Mar 08, 2025 12:00 PM [facility] CREATININE URINE/OTHERS URINE Specimen Type: URINE No comment entered. Ordering Provider: STU FABIAN Report Released Date/Time: Mar 01, 2025 09:36 AM Reporting Lab: [facility] [address] [place] [phone] Performing Lab: [facility] [address] [place] [phone] CREATININE URINE/OTHERS 249.6 mg/dL H 63-1 66 Mar 08, 2025 12:00 PM [facility] MICRAL/CREAT PROFILE (STL) URINE Specimen Typ e: URINE No comment entered. Ordering Provider: STU FABIAN Report Released Date/Time: Mar 01, 2025 09:36 AM Reporting Lab: [address] [address] Performing Lab: [address] [address] URINE ALBUMIN (PB-STL) 33.1 mg/L uACR (STL) 13 mg/g 0-29 CREATININE URINE/OTHERS 251.3 mg/dL H 63-1 66 Mar 08, 2025 12:00 PM [facility] PT/INR NEW (STL-MA) PLASMA Specimen Type: PLAS MA No comment entered. Ordering Provider: STU FABIAN Report Released Date/Time: Mar 01, 2025 09:36 AM Reporting Lab: [address] [address] Performing Lab: [facility] [address] [place] [phone] PROTIME 15.6 s H 9.4-12.5 INR VALUE 1.4 {INR} Mar 08, 2025 12:00 PM [facility] APTT PLASMA Specimen Type: PLASM A No comment entered. Ordering Provider: STU FABIAN Report Released Date/Time: Mar 01, 2025 09:36 AM Reporting Lab: [facility] [address] [place] [phone] Performing Lab: [facility] [address] [place] [phone] APTT 31.4 s 26.7-39.9 Mar 08, 2025 12:00 PM [facility] GLUCOSE PLASMA Specimen Type: PLASM A No comment entered. Ordering Provider: STU FABIAN Report Released Date/Time: Mar 01, 2025 09:36 AM Reporting Lab: [address] [address] Performing Lab: [facility] [address] [place] [phone] [facility] GLUCOSE 134 mg/dL H 72-99 Mar 08, 2025 12:00 PM [facility] TSH (MA-PB) SERUM Specimen Type: SERUM No comment entered. Ordering Provider: STU FABIAN Report Released Date/Time: Mar 01, 2025 09:36 AM Reporting Lab: [address] [address] Performing Lab: [address] [address] TSH 0.702 u[IU]/mL 0.47-5 Mar 08, 2025 12:00 PM [facility] B12 SERUM Specimen Type: SERUM No comment entered. Ordering Provider: STU FABIAN Report Released Date/Time: Mar 01, 2025 09:36 AM Reporting Lab: [address] [address] Performing Lab: [address] [address] B12 592 pg/mL 213-816 Mar 08, 2025 12:00 PM [facility] CMP PLASMA Specimen Type: PLASM A Comment: No hemolysis noted. Ordering Provider: STU FABIAN Report Released Date/Time: Mar 01, 2025 09:36 AM Reporting Lab: [address] [address] Performing Lab: [address] [address] CREATININE 0.78 mg/dL 0.7-1.3 UREA NITROGEN 15.6 [...] 90.2 >60 Mar 08, 2025 12:00 PM [facility] FOLATE (STL-MA) SERUM Specimen Type: SERUM No comment entered. Ordering Provider: STU FABIAN Report Released Date/Time: Mar 01, 2025 09:36 AM Reporting Lab: [place] [address] [facility] [address] Performing Lab: [address] [address] FOLATE (STL-MA) 4.8 ng/mL L 7-20 Mar 08, 2025 12:00 PM [facility] VITAMIN D, 25-HYDROXY SERUM Specimen Type: SE RUM No comment entered. Ordering Provider: STU FABIAN Report Released Date/Time: Mar 01, 2025 09:36 AM Reporting Lab: [facility] [address] [facility] [address] Performing Lab: [facility] [address] [facility] [address] VITAMIN D, 25-HYDROXY 28.3 ng/mL L 30-96 Mar 08, 2025 12:00 PM [facility] LIPID PANEL (STL) PLASMA Specimen Type: PLASM A Comment: No hemolysis noted. Ordering Provider: STU FABIAN Report Released Date/Time: Mar 01, 2025 09:36 AM Reporting Lab: [place] [address] [facility] [address] Performing Lab: [facility] [address] [facility] [address] CHOLESTEROL 136 mg/dL 0-200 TRIGLYCERIDE 138 mg/dL 0-150 CALCULATED LDL 70 mg/dL HDL(New) 38 mg/dL L >40 Mar 08, 2025 12:00 PM [facility] HGA1C BLOOD Specimen Type: BLOOD No comment entered. Ordering Provider: STU FABIAN Report Released Date/Time: Mar 01, 2025 09:36 AM Reporting Lab: [place] [address] [facility] [address] Performing Lab: [address] [phone] HGA1C 6.6 Mar 08, 2025 12:00 PM [facility] CBC BLOOD Specimen Type: BLOOD Comment: ~THIS TEST SHOULD ONLY BE USED BY [facility] Ordering Provider: STU FABIAN Report Released Date/Time: Mar 01, 2025 09:36 AM Reporting Lab: [facility] [address] [facility] [address] Performing Lab: [address] [address] WBC 3.3 10*3/uL L 3.6-11.2 RBC 3.50 [...] SCRNPERF YES Mar 08, 2025 12:00 PM [facility] CYSTATIN C EGFR PANELS (ST-PB-MD) PLASMA Spec imen Type: PLASMA Comment: Choice of which of the reported eGFR values to use depends on the clinical situation. For example, for patients with severe muscle wasting or reduced muscle mass, eGFR calculated using the 2012 cystatin equation may be preferred. Ordering Provider: STU FABIAN Report Released Date/Time: Mar 01, 2025 09:36 AM Reporting Lab: [address] [address] Performing Lab: [address] [address] CYSTATIN C 1.66 mg/L 0.57-1.80 CKD-EPI CYSTATIN C (2011) 36.6 >60 CKD-EPI CREAT-CYSC (2020) 57.4 >60 CREATININE ([facility]) 0.76 mg/dL 0.7-1.3 Mar 08, 2025 12:00 PM [facility] FERRITIN SERUM Specimen Type: SERUM No comment entered. Ordering Provider: STU FABIAN Report Released Date/Time: Mar 01, 2025 09:36 AM Reporting Lab: [address] [address] Performing Lab: [address] [address] FERRITIN 61.70 ng/mL 22-275 Mar 08, 2025 12:00 PM [facility] IRON/TIBC PROFILE SERUM Specimen Type: SERUM No comment entered. Ordering Provider: STU FABIAN Report Released Date/Time: Mar 01, 2025 09:36 AM Reporting Lab: [address] [address] Performing Lab: [facility] [address] [facility] [address] TIBC 190 ug/dL L 250-450 TRANSFERRIN 152 mg/dL L 163-344 IRON SATURATION 25 20-50 IRON 47 ug/dL L 65-175 Mar 08, 2025 12:00 PM [facility] URINALYSIS W/O REFLEX CX (STL-PB) URINE Speci men Type: URINE No comment entered. Ordering Provider: STU FABIAN Report Released Date/Time: Mar 01, 2025 09:36 AM Reporting Lab: [facility] [address] [facility] [address] Performing Lab: [place] [address] [address] [facility] [address] URINE COLOR Yellow Yellow U.BILIRUBIN Negative mg/dL [...] 1.038 H Mar 08, 2025 12:00 PM [facility] RETICULOCYTE PANEL BLOOD Specimen Type: BLOOD Comment: ~THIS TEST SHOULD ONLY BE USED BY [facility] Ordering Provider: STU FABIAN Report Released Date/Time: Mar 01, 2025 09:36 AM Reporting Lab: [facility] [address] [facility] [address] Performing Lab: [place] [address] [address] [facility] [address] RETIC RATIO 1.65 0.50-2.30 IRF 18.2 H 2.3-13.4 RETICULOCYTE HEMOGLOBIN EQUIVALENT 35.0 pg 28.2-36.6 RETIC COUNT,ABS 0.058 10*6/uL 0.022-0.10 1 Feb 10, 2025 12:51 PM [facility] GLUCOSE,BLOOD-poct (STL) BLOOD Specimen Type: BLOOD Comment: Test Performed by: [id number] Meter #: [id number] Ordering Provider: ANN BEASLEY Report Released Date/Time: Feb 10, 2025 12:53 PM Reporting Lab: [place] [address] [address] [facility] [address] Performing Lab: [address] [address] GLUCOSE,BLOOD-poct (STL) 199 mg/dL H 72-99 Feb 10, 2025 05:13 AM [facility] GLUCOSE,BLOOD-poct (STL) BLOOD Specimen Type: BLOOD Comment: Test Performed by: [id number] Meter #: [id number] Ordering Provider: ANN BEASLEY Report Released Date/Time: Feb 10, 2025 05:37 AM Reporting Lab: [place] [address] [facility] [address] Performing Lab: [place] [address] [facility] [address] GLUCOSE,BLOOD-poct (STL) 95 mg/dL 72-99 Feb 09, 2025 11:20 PM [facility] APTT PLASMA Specimen Type: PLASM A Comment: ~HEP BOLUS - CALL RESULTS Ordering Provider: JESSE BURGOS Report Released Date/Time: Feb 09, 2025 04:35 PM Reporting Lab: [place] [address] [facility] [address] Performing Lab: [address] [address] APTT 29.9 s 26.7-39.9 Feb 09, 2025 08:35 PM [facility] GLUCOSE,BLOOD-poct (STL) BLOOD Specimen Type: BLOOD Comment: Test Performed by: [id number] Meter #: [id number] Ordering Provider: ANN BEASLEY Report Released Date/Time: Feb 09, 2025 08:41 PM Reporting Lab: [address] [address] Performing Lab: [address] [address] GLUCOSE,BLOOD-poct (STL) 159 mg/dL H 72-99 Feb 09, 2025 05:22 PM [facility] MRSA SURVL NARES DNA NARES Specimen Type: [...] Feb 09, 2025 04:31 PM Reporting Lab: [address] [address] Performing Lab: [address] [address] MRSA SURVL NARES DNA Negative Negative Feb 09, 2025 05:00 PM [facility] APTT PLASMA Specimen Type: PLASM A Comment: ~HEP BOLUS-CALL RESULTS Ordering Provider: JESSE BURGOS Report Released Date/Time: Feb 09, 2025 04:35 PM Reporting Lab: [place] [address] [facility] [address] Performing Lab: [address] [address] APTT 28.0 s 26.7-39.9 Feb 09, 2025 04:59 PM [facility] GLUCOSE,BLOOD-poct (STL) BLOOD Specimen Type: BLOOD Comment: Test Performed by: [id number] Meter #: [id number] Ordering Provider: ANN BEASLEY Report Released Date/Time: Feb 09, 2025 05:02 PM Reporting Lab: [place] [address] Performing Lab: [place] [phone] GLUCOSE,BLOOD-poct (STL) 162 mg/dL H 72-99 Feb 09, 2025 01:55 PM [facility] LACTIC ACID (L-PB) PLASMA Specimen Type: TAMARA SMA No comment entered. Ordering Provider: CHINO LEONG I Report Released Date/Time: Feb 09, 2025 01:44 PM Reporting Lab: [place] [address] Performing Lab: [place] [address] LACTIC ACID (STL-PB) 2.9 mmol/L H 0.5-2.0 Feb 09, 2025 11:52 AM [facility] BLOOD GAS PANEL ABG ([facility]) VENOUS BLOOD Specimen Type : VENOUS BLOOD Comment: Test Performed by: [id number] Meter #: [id number] Ordering Provider: ANNIE ARGUETA Report Released Date/Time: Feb 09, 2025 11:53 AM Reporting Lab: [address] [address] Performing Lab: [place] [phone] GEM PH 7.40 7.31-7.41 GEM PCO2 36 [...] TEMP 37.0 Feb 09, 2025 11:51 AM [facility] BRAIN NATRIURETIC PEPTIDE PLASMA Specimen Type : PLASMA No comment entered. Ordering Provider: CHINO LEONG I Report Released Date/Time: Feb 09, 2025 01:19 PM Reporting Lab: [address] [address] Performing Lab: [address] [address] BRAIN NATRIURETIC PEPTIDE 341.6 pg/mL H 0- 100 Feb 09, 2025 11:31 AM [facility] TROPONIN I (STL) PLASMA Specimen Type: PLASM A Comment: No hemolysis noted. Ordering Provider: KESHIA HUYNH Report Released Date/Time: Feb 09, 2025 11:30 AM Reporting Lab: [address] [address] Performing Lab: [address] [address] TROPONIN I (STL) 0.019 ng/mL 0-0.033 Feb 09, 2025 11:31 AM [facility] COMPREHENSIVE METABOLIC PANEL PLASMA Specimen Type: PLASMA Comment: No hemolysis noted. Ordering Provider: KESHIA HUYNH Report Released Date/Time: Feb 09, 2025 11:30 AM Reporting Lab: [address] [address] Performing Lab: [address] [address] CREATININE 0.96 mg/dL 0.7-1.3 UREA NITROGEN 16.8 [...] 80.4 >60 Feb 09, 2025 11:31 AM [facility] CBC BLOOD Specimen Type: BLOOD No comment entered. Ordering Provider: KESHIA HUYNH Report Released Date/Time: Feb 09, 2025 11:30 AM Reporting Lab: [place] [address] [facility] [address] Performing Lab: [address] [address] WBC 5.6 10*3/uL 3.6-11.2 RBC 3.71 10*6/uL [...] 0.00-0. 20 Feb 09, 2025 11:20 AM [facility] GLUCOSE,BLOOD-poct (STL) BLOOD Specimen Type: BLOOD Comment: Test Performed by: [id number] Meter #: [id number] Ordering Provider: ANNIE ARGUETA Report Released Date/Time: Feb 09, 2025 11:22 AM Reporting Lab: [facility] [address] [facility] [id number] Performing Lab: [facility] [address] [facility] [id number] GLUCOSE,BLOOD-poct (STL) 161 mg/dL H 72-99 Vital Signs: All taken on the encounter date This section contains inpatient and outpatient Vital Signs collected on the date of the Encounter. Date/Time Temperature Pulse Blood Pressure Respiratory Rate SP02 Pain Height Weight Body Mass Index Source Feb 10, 2025 12:43 PM 99.3 F 80 /min 117/69 mm[Hg] 2 /min 92 % 2 [facility] N Feb 10, 2025 12:21 PM 7 [facility] Feb 10, 2025 08:38 AM 97.9 F 91 /min 142/81 mm[Hg] 18 /min 95 % 7 [facility] N Feb 10, 2025 05:26 AM 7 [facility] N Feb 10, 2025 05:12 AM 98.4 F 84 /min 139/77 mm[Hg] 18 /min 96 % 7 [facility] Social History: Smoking Status (Most current) [...] 11:21 AM VA-TOBACCO USE FOR HANK CIGARETTES [facility] Tobacco Use History This section includes a history of the smoking, or tobacco-related health factors, that were collected on or before the date of the Encounter. The data comes from the [place] facility where the Encounter took place. Date/Time Smoking Status/Tobacco Use Comment F acgideon Jun 10, 2024 11:21 AM PR-TOBACCO USE FOR HANK CIGARETTES [facility] Radiology Reports: +/- 30 days of [...] the Encounter. The data comes from all [place] treatment facilities. Date/Time Radiology Report Provider Source Feb 10, 2025 11:29 AM US EXTREMITY VEINS BILAT (DVT): ISMAELSANARAJIJOSE MARIA [id number] -1945 M Exm Date: FEB 10, 2025@11:29 Req Phys: JESSE BURGOS Pat Loc: 6N S -[facility]/02-10-2025@13:14 Img Loc: [facility]-ULTRASOUND [facility] Service: [id number] [address] [address] (Case [id number] COMPLETE) US EXTREMITY VEINS BILAT (DVT) (US Detailed) CPT:03046 Reason for Study: dx with PE Clinical History: Report Status: Verified Date Reported: FEB 10, 2025 Date Verified: FEB 10, 2025 Oven Worker E-Sig:/ES/David Pastrana MD Report: CASE #: [id number] DATE:02/10/2025 12:51 PM CLINICAL HISTORY:dx with PE [...] verification. Dictated by Chastity Mantilla M.D. (Diagnostic Mattress Specialist). I, David Pastrana, have reviewed the images and report and concur with these findings. Primary Interpreting Staff: David Pastrana MD, Radiologist (Oven Worker) Primary Interpreting Resident: Chastity Mantilla MD, Resident Physician /DAVID WILCOX [facility] Feb 09, 2025 03:[address] PE CHEST W/3D: JOSE MARIA WHITE [id number] -1945 M Ex Date: FEB 09, 2025@15:10 Req Phys: CHINO LEONG I Pat Loc: 6N S -[facility]ESS[facility]/02-09-2025@16:39 Im Loc: [facility]-CT IMAGING Service: Unknown [address] [address] (Case [id number] COMPLETE) CT THORAX W/CONT (PE) (CT Detailed) CPT:15441 Contrast Media : unspecified contrast media Reason for Study: syncope, abormanl CXR Clinical History: Responsible Attending: Mariam Attending Contact Number: [phone] Resident Contact Number: syncope, abormanl CXR Allergies listed in CPRS chart: PENICILLIN, TETRACYCLINE, NEOSPORIN, CELEBREX, SIMVASTATIN Creatinine: CREATININE 0.96 mg/dL 02/09/2025 11:31 /eGFR: STL EGFR (within one year). CREATININE 0.96 mg/dL (02/09/25 11:31) Wt: 273.5 lb [124.06 kg] (09/10/2023 13:16) History of: Renal failure, chronic or acute renal disease: NO Report Status: Verified Date Reported: FEB 09, 2025 Date Verified: FEB 09, 2025 Oven Worker E-Sig:/CAS/REA MARLEY Report: CASE #: [id number] DATE:02/09/2025 4:08 PM CLINICAL HISTORY:syncope, abormanl CXR [...] confirmation. Dictated by Jamal Chiu M.D. (Diagnostic Mattress Specialist). IRea, have reviewed the images and report and concur with these findings. 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) Primary Interpreting Resident: JAMAL CHIU, Resident Physician /REA HOPE [facility] Feb 09, 2025 01:[address] HEAD W/O CONT: JOSE MARIA WHITE [id number] -1945 M Exm Date: FEB 09, 2025@13:01 Req Phys: CHINO LEONG Loc: JESSICA-EMERGENCY DEPT 2ND SHIFT (R Img Loc: JESSICA-CT IMAGING [facility] Service: Unknown [facility], [address] [place] [address] (Case [id number] COMPLETE) CT HEAD W/O CONT (CT Detailed) CPT:07368 Reason for Study: syncopal episode Clinical History: Responsible Attending: Mariam Attending Contact Number: [phone] Resident Contact Number: syncopal episode Allergies listed in CPRS chart: PENICILLIN, TETRACYCLINE, NEOSPORIN, CELEBREX, SIMVASTATIN Creatinine: CREATININE 0.90 mg/dL 08/07/2024 14:00 /eGFR: STL EGFR (within one year). CREATININE 0.90 mg/dL (08/07/24 14:00) Wt: 273.5 lb [124.06 kg] (09/10/2023 13:16) History of: Renal failure, chronic or acute renal disease: NO Report Status: Verified Date Reported: FEB 09, 2025 Date Verified: FEB 09, 2025 Oven Worker E-Sig:/ES/REA MARLEY Report: CASE #: [id number] DATE:02/09/2025 1:35 PM CLINICAL HISTORY:syncopal episode TECHNIQUE: [...] process. Dictated by Jamal Chiu M.D. (Diagnostic Mattress Specialist). I, Rea Marley, have reviewed the images and report and concur with these findings. 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) Primary Interpreting Resident: JAMAL CHIU, Resident Physician /REA [facility] Feb 09, 2025 11:32 AM CHEST PORTABLE: JOSE MARIA WHITE [id number] -1945 M Exm Date: FEB 09, 2025@11:32 Req Phys: KESHIA HUYNH Loc: [facility]-EMERGENCY DEPT 2ND SHIFT (R Img Loc: -MAIN RADIOLOGY SUITE Service: Unknown [facility], [address] [place] [address] (Case [id number] COMPLETE) CHEST PORTABLE (RAD Detailed) CPT:40494 Proc Modifiers : Portable Reason for Study: hypotension Clinical History: Report Status: Verified Date Reported: FEB 09, 2025 Date Verified: FEB 09, 2025 Oven Worker E-Sig:/ES/David Pastrana MD Report: CASE [id number]. AP portable view chest. COMPARISON: FINDINGS: Bilateral [...] effusion. Dictated by Jamal Chiu M.D. (Diagnostic Mattress Specialist). I, David Pastrana, have reviewed the images and report and concur with these findings. Primary Interpreting Staff: David Pastrana MD, Radiologist (Oven Worker) Primary Interpreting Resident: Resident HAL Physician /DAVID WADE [facility] Pathology Reports: +/- 30 days of [...] the Encounter. The data comes from all [place] treatment facilities. Date/Time Pathology Report Provider Source Feb 09, 2025 12:20 PM LR MICROBIOLOGY RE PORT: Accession [UID]: [id number] [[id number]] Received: Feb 09, 2025@12:29 Collection sample: B D BLD. BOTTLE Collection date: Feb 09, 2025 12:20 Site/Specimen: BLOOD Provider: ANNIE ARGUETA T Test(s) ordered: BLOOD CULT (SET 1)............ completed: Feb 15, 2025 12:44 * BACTERIOLOGY FINAL REPORT => Feb 15, 2025 12:46 TECH CODE: [id number] Bacteriology Remark(s): 02/10/25 CMG CULTURE IS NEGATIVE TO DATE, ALL POSITIVES ARE ROUTINELY CALLED. Culture shows NO GROWTH IN 6 DAYS. 02/15/25 CED =--=--=--=--=--=--=--=--=--=- -=--=--=--=--=--=--=--=--=--= --=--=--=--=--=--=-- Performing Laboratory: Bacteriology Report Performed By: [facility] CLIA# [id number] [address] [place] [address] Bact Report Remark Performed By: [address] CLIA# [id number] [address] [place] [address] Feb 09, 2025 12:15 PM MICROBIOLOGY RE PORT: Accession [UID]: [id number] [[id number]] Received: Feb 09, 2025@12:29 Collection sample: B D BLD. BOTTLE (SET 2)Collection date: Feb 09, 2025 12:15 Site/Specimen: BLOOD Provider: ANNIE ARGUETA T Test(s) ordered: BLOOD CULT (SET 2)............ completed: Feb 15, 2025 12:45 * BACTERIOLOGY FINAL REPORT => Feb 15, 2025 12:46 [facility] CODE: [id number] Bacteriology Remark(s): 02/10/25 CMG CULTURE IS NEGATIVE TO DATE, ALL POSITIVES ARE ROUTINELY CALLED. Culture shows NO GROWTH IN 6 DAYS. 02/15/25 CED =--=--=--=--=--=--=--=--=--=- -=--=--=--=--=--=--=--=--=--= --=--=--=--=--=--=-- Performing Laboratory: Bacteriology Report Performed By: [facility] [address]# [id number] [address] [place] [id number] Bact Report Remark Performed By: [address] [id number] [address] Encounter Notes: All associated encounter notes This section contains the clinical notes associated to the Encounter. Date/Time Encounter Note(s) Provider Source Feb 10, 2025 09:17 AM INITIAL EVALUATION NOTE: LOCAL TITLE: ANTICOAGULATION INITIAL NOTE STANDARD TITLE: INITIAL EVALUATION NOTE DATE OF NOTE: FEB 10, 2025@09:17 ENTRY DATE: FEB 10, 2025@09:17:46 AUTHOR: NIKKI ANDRE COSIGNER: URGENCY: STATUS: COMPLETED INPATIENT ANTICOAGULATION MONITORING NOTE JOSE MARIA WHITE is a 79 y/o evaluated today for anticoagulation management. HPI: Patient is a 79 yo M w/PMHx of HTN, T2DM, PTSD and migraines who presented from ED after syncopal episode. CT head negative, CT PE - with segmental PE. Patient started on apixaban. Team planning discharge today. The purpose of this note is for inpatient anticoagulation monitoring. Indication for anticoagulation: PE Home medication/dosage: n/a - new start Anticoagulant start date: 02/09/2025 Outpatient regimen verified with patient during admission: n/a Anticipated anticoagulation duration: TBD - at least 3-6 months HAS-BLED Score: 2 (Age, bASA) Active Outpatient Medications Status 1) ACCU-CHEK GUIDE (GLUCOSE) TEST STRIP USE 1 STRIP FOR BLOOD ACTIVE TEST TWICE A DAY ALTERNATING TIMES EACH DAY *STABLE INSULIN THERAPY* Jun Indication: FOR BLOOD SUGAR MONITORING 2) APIXABAN 5MG TAB TAKE TWO TABLETS BY MOUTH TWICE A DAY FOR 7 ACTIVE DAYS, THEN TAKE ONE TABLET TWICE A DAY Indication: FOR ANTICOAGULATION 3) CARVEDILOL 25MG TAB TAKE ONE-HALF TABLET BY MOUTH TWICE A ACTIVE DAY WITH FOOD Indication: FOR HIGH BLOOD PRESSURE 4) CODEINE 30/ACETAMINOPHEN 300MG TAB TAKE 1 TABLET BY MOUTH ACTIVE TWICE DAILY NEEDED . CAUTION: DO NOT EXCEED 4000MG PER DAY ACETAMINOPHEN (APAP) FROM ALL MEDS. Indication: FOR PAIN 5) INSULIN,GLARGINE 100 UNT/ML 3ML SOLOSTAR INJECT 23 UNITS ACTIVE UNDER THE SKIN ONCE A DAY ADMINISTER AT SAME TIME EACH DAY DIRECTED. DISCARD ANY OPEN CARTRIDGE AFTER 28 DAYS. Indication: FOR DIABETES 6) LIDOCAINE 5% PATCH APPLY 1 PATCH TO SKIN SITE ONCE A DAY ACTIVE APPLY PATCH AND PRESS FIRMLY FOR 10-15 SECONDS. KEEP ON FOR 12 HOURS THEN REMOVE PATCH FOR 12 HOURS. Indication: FOR LOCAL ANESTHESIA 7) METFORMIN HCL 500MG 24HR SA TAB TAKE TWO TABLETS BY MOUTH ACTIVE TWICE A DAY TAKE WITH FOOD. AVOID ALCOHOL. DISCONTINUE BEFORE GETTING XRAY DYE. Indication: FOR DIABETES 8) PREGABALIN 75MG ORAL CAP TAKE ONE CAPSULE BY MOUTH TWICE A ACTIVE DAY *MAY CAUSE DROWSINESS* Indication: FOR NERVE PAIN 9) PSYLLIUM ORAL PWD MIX AND DRINK 1 [...] 15MG BY MOUTH ACTIVE ONCE A DAY Active Inpatient Medications: 1) INSULIN GLARGINE HUMAN INJ SC QHS 16 UNITS 2) LIDOCAINE 5% PATCH TRANSDERMAL QDAILY 1 PATCH 3) INSULIN ASPART (NOVOLOG) INJ SQ TID AC SLIDING SCALE 4) INSULIN ASPART (NOVOLOG) INJ SQ QHS SLIDING SCALE 5) PSYLLIUM SUGAR-FREE POWDER,ORAL PO QDAILY 1 PACKET 6) MELATONIN CAP/TAB PO QHS PRN 10MG 7) DEXTROSE 50% INJ,SOLN IVP PRN 50 ML 8) GLUCAGON INJ IM PRN 1MG/1VIAL 9) GLUCOSE TAB,CHEWABLE PO PRN 16GM 10) APIXABAN (PA-F) TAB,ORAL PO BID 10MG 11) ONDANSETRON TAB,ORAL DISINTEGRATING SL Q8H PRN 4MG 12) ACETAMINOPHEN TAB PO Q6H PRN 650MG 13) PREGABALIN CAP,ORAL PO BID 75MG 14) CODEINE 30MG/APAP 300MG UD TAB PO BID PRN 30MG/300MG Pertinent labs: HGB 11.8 L g/dL 02/09/2025 11:31 HCT 37.1 L % 02/09/2025 11:31 PLT 157 10*3/uL 02/09/2025 11:31 CREATININE 0.96 mg/dL 02/09/2025 11:31 EGFR (CKD-EPI 2020) 80.4 02/09/2025 11:31 CrCl:84.4mL/min ALT/SGPT 13 U/L 02/09/2025 11:31 AST/SGOT 17 U/L 02/09/2025 11:31 Weight 280.0 lb [127.01 kg] (02/09/2025 16:11) A/P: DOAC for PE: - Apixaban is appropriate for indication (new dx PE), weight and current renal function. LFTs WNL. o Recommend to continue apixaban 10mg PO BID x 7 days, then 5mg PO BID thereafter o Education completed at bedside, see counseling notes below Monitoring: - H/H - low but overall stable. No s/sx of bleeding. CTM - Plts - WNL - LFTs - WNL - SCr - WNL - Continue routine monitoring of BUN/SCr, H/H/Plt, and AST/ALT as per outpatient anticoagulation clinic Bridging: - n/a Significant drug interactions: - bASA (nonVA) - patient reports being on for HTN. Denies CV history. Without indication and increased bleed risk, consider discontinuation. Outpatient follow-up: - Consult already placed and approved. - Patient will be followed by outpatient anticoagulation clinic via DOAC dashboard. Follow up as needed by outpatient clinic - Will alert anticoagulation clinic of admission/discharge Medication: - new start, patient aware will need to medicinal plant picker prior to discharge today. Counseling Notes: - Purpose of DOAC and how/when to take medication - Tablet/capsule identification and storage - Importance of medication adherence and management of missed doses - Signs/symptoms of bleeding and TE - Drug interactions (e.g. NSAIDS, ASA), required labs and follow-up - Risks associated with falling - Notifying PCP and anticoagulation clinic about any scheduled procedures/surgeries - Given DOAC handout with contact information Inpatient team alerted of above recommendations and plan. Pharmacy will continue to monitor inpatient anticoagulation unless otherwise instructed by team. Please call at [phone] with questions. --Minutes spent on review + F2F Education: 30 minutes PBM PharmD Pharmacotherapy Rem V12: PHARMACIST INTERVENTIONS: ANTICOAGULATION THERAPY DIRECT ORAL ANTICOAGULANT (DOAC) MANAGEMENT Medication monitoring, no dosage change required, continue to monitor and assess Address adherence Care coordination /cas/ NIKKI ANDRE PHARMKenyatta, BCPS Clinical Senior Pl Sql Developer Signed: 02/10/2025 09:28 Receipt Acknowledged By: 02/10/2025 10:25 /cas/ Enoc Calderon Pharm.D., BCACP Clinical Pharmacist NIKKI ANDRE [facility]
--- OUTSIDE RECORDS SUMMARY | 2025-02-10 07:00 | XMS_ITS ---
Author Name Department of [facility] Affairs ([place]) Organization [facility] [place] Address [address] [place] [address] Care Team Providers Care Process Description Writer Name Role Phone GRACE QUINN Primary Care [...] Medina's Name Patient's Relationship to Policy Medina [facility] MEDICARE SUPPLEMEN SHEILA PLANF Mar 25, 2016 [facility]LY [facility] [id number] CHRISTOPHER JOSE MARIA PATIENT [facility] MEDICARE SUPPLEMEN SHEILA PLANF Oct 23, 2010 PLANF [id number] [address] MARIA PAT[address] [facility] MEDICARE SUPPLEMEN SHEILA PLANF Mar 25, 2016 PLANF [id number] [phone] JOSE MARIA WHITE [employer] MED SUPP MEDICARE SUPPLEMEN SHEILA PLANF Oct 23, 2010 PLANF [id number] [phone] JOSE MARIA WHITEP [facility] (WNR) MEDICARE ADVANTAGE [facility] (WNR) July 24, 2023 [id number] JOSE MARIA WHITE PATIENT MEDICARE (WNR) MEDICARE (M) PART B July 24, 2003 PART B [id number] JOSE MARIA WHITE PATIENT MEDICARE (WNR) MEDICARE (M) PART A July 24, 2003 PART A [id number] [phone] JOSE MARIA WHITE PATIENT MEDICARE (WNR) MEDICARE (M) PART A July 24, 2003 PART A [id number] [phone] JOSE MARIA WHITE PATIENT [facility] (WNR) MEDICARE ADVANTAGE MCR (WNR) Mar 25, 2024 [id number] JOSE MARIA WHITE [facility] (WNR) MEDICARE ADVANTAGE MCR (WNR) Mar 25, 2024 [id number] JOSE MARIA WHITE PATIENT Selected Encounter This section includes the information on record at [place] for the Encounter. 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 Date/Time Primary/Secondary Diagnosis Diagnosis Name Provider Source Feb 10, 2025 01:39 PM PRIMARY Spiritual or anabaptism counseling ROMAIN ZAMUDIO [facility] Plan of Treatment: Future Appointments (+ [...] 20 appointments. The data comes from all [facility]. Appointment Date/Time Appointment Type Appointme nt Facility Name Feb 12, 2025 01:30 PM AMBULATORY - NONE [facility] Mar 15, 2025 01:30 PM AMBULATORY - NONE [facility] Mar 31, 2025 10:00 AM AMBULATORY - MEDICINE [facility] Mar 31, 2025 12:00 PM AMBULATORY - SURGERY [facility] Kristian [facility] Mar 31, 2025 02:30 PM AMBULATORY - MEDICINE [facility] Apr 09, 2025 11:00 AM AMBULATORY - MEDICINE [facility] May 03, 2025 03:00 PM AMBULATORY - NONE [facility] Active, Pending, and Scheduled Orders This section includes a listing of several types of active, pending, and scheduled orders, including clinic medications orders, diagnostic test orders, procedure orders and consult orders; where the start date of the order is 45 days before the date of the Encounter or 45 days after the date of theEncounter. The data comes from all [facility]. 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 ST[place] Cons Senior Business Analyst's Choice [facility] Jan 15, 2025 12:00 AM Laboratory - Chemistry Order CELIAC DISEASE PANEL (STL-MRN) GOLD/RED SST SERUM SP ONCE [facility] Jan 15, 2025 12:00 AM Laboratory - Chemistry Order ANTI-NUCLEAR ANTIBODY (STL-PB) GOLD/RED SST SERUM SP [facility] Jan 15, 2025 12:00 AM Laboratory - Chemistry Order IRON/TIBC PROFILE GOLD/RED SST SERUM SP [facility] Jan 15, 2025 12:00 AM Laboratory - Chemistry Order ANTI-MITOCHONDRIAL AB (STL-PB) GOLD/RED SST SERUM SP [facility] Jan 15, 2025 12:00 AM Laboratory - Chemistry Order ACTIN (SMOOTHMUSCLE) ANTIBODY IGG GOLD/RED SST SERUM SP [facility] Jan 15, 2025 12:00 AM Laboratory - Chemistry Order HEP HB S Ag (AUSRIA) (STL) GOLD/RED SST SERUM SP [facility] Jan 15, 2025 12:00 AM Laboratory - Chemistry Order HEPATITIS B SURFACE AB PNL GOLD/RED SST SERUM SP [facility] Jan 15, 2025 12:00 AM Laboratory - Chemistry Order IGG (STL) GOLD/RED SST SERUM [facility] Jan 15, 2025 12:00 AM Laboratory - Chemistry Order HEPATITIS A IGG AB (STL) GOLD/RED SST SERUM SP [facility] Jan 15, 2025 12:00 AM Laboratory - Chemistry Order ALPHA-1 ANTITRYPSIN (STL-PB) GOLD/RED SST SERUM [facility] Jan 15, 2025 12:00 AM Laboratory - Chemistry Order HEP B CORE AB TOTAL. (STL) GOLD/RED SST SERUM [facility] Jan 15, 2025 12:00 AM Laboratory - Chemistry Order FERRITIN GOLD/RED SST SERUM [facility] Jan 15, 2025 12:00 AM Laboratory - Chemistry Order HEPATIC FUNTION PANEL (STL) GREEN LI/HEP BLD/PLAS PLASMA SP [facility] Jan 15, 2025 12:00 AM Laboratory - Chemistry Order HEP C Ab HCV Ab (STL) GOLD/RED SST SERUM [facility] Feb 09, 2025 12:18 PM Laboratory - Chemistry Order URINALYSIS W/ CX REFLEX (STL-PB) URN - CLEAN CATCH URINE WC ONCE [facility] Mar 01, 2025 12:00 AM Laboratory - Microbiology Order C&S URINE URINE HOLT WC ONCE [facility] Mar 01, 2025 12:00 AM Laboratory - Chemistry Order OCCULT BLOOD FIT X1 SCREEN STOOL FECES SP [facility] Mar 01, 2025 12:00 AM Laboratory - Chemistry Order ANTITHROMBIN III ACTIVITY BLUE,LIGHT(SODIUM CITRATE) PLASMA [facility] Mar 01, 2025 09:36 AM Consult Order EYE CLINIC OUTPT JESSICA Cons Senior Business Analyst's Choice [facility] Mar 01, 2025 09:36 AM Consult Order VASCULAR LAB OUTPT STL Cons Senior Business Analyst's Choice [facility] Mar 01, 2025 09:36 AM Consult Order CARDIOLOGY OUTPT JESSICA Cons Senior Business Analyst's Choice [facility] Mar 08, 2025 12:00 PM Laboratory - Chemistry Order FACTOR V(LEIDEN)MUTATION ANALYSIS BLOOD [facility] Mar 09, 2025 12:00 AM Laboratory - Chemistry Order URINE DRUG SCREEN (STL) URINE YELLOW [facility] Mar 15, 2025 12:00 AM Laboratory - Chemistry Order HEP C Ab HCV Ab (STL) GOLD/RED SST SERUM [facility] Mar 15, 2025 12:00 AM Laboratory - Chemistry Order LACTOFERRIN,STOOL ([facility]-MA-PB) STOOL FECES [facility] Mar 15, 2025 12:00 AM Laboratory - Chemistry Order ANTI-NUCLEAR ANTIBODY (STL-PB) GOLD/RED SST SERUM [facility] Mar 15, 2025 12:00 AM Laboratory - Chemistry Order ANTI-MITOCHONDRIAL AB (STL-PB) GOLD/RED SST SERUM [facility] Mar 15, 2025 12:00 AM Laboratory - Chemistry Order ACTIN (SMOOTHMUSCLE) ANTIBODY IGG GOLD/RED SST SERUM [facility] Mar 15, 2025 12:00 AM Laboratory - Chemistry Order HEP HB S Ag (AUSRIA) (STL) GOLD/RED SST SERUM [facility] Mar 15, 2025 12:00 AM Laboratory - Chemistry Order IGG (STL) GOLD/RED SST SERUM [facility] Mar 15, 2025 12:00 AM Laboratory - Chemistry Order HEPATITIS B SURFACE AB PNL GOLD/RED SST SERUM [facility] Mar 15, 2025 12:00 AM Laboratory - Chemistry Order HEP B CORE AB TOTAL. (STL) GOLD/RED SST SERUM [facility] Mar 15, 2025 12:00 AM Laboratory - Chemistry Order HEPATITIS A IGG AB (STL) GOLD/RED SST SERUM [facility] Mar 15, 2025 12:00 AM Laboratory - Chemistry Order CELIAC DISEASE PANEL (STL-MRN) GOLD/RED SST SERUM SP ONCE [facility] Mar 15, 2025 12:00 AM Laboratory - Chemistry Order ALPHA-1 ANTITRYPSIN (STL-PB) GOLD/RED SST SERUM SP [facility] Mar 15, 2025 12:00 AM Imaging - General Radiology Order SPINE LUMBOSACRAL 2 OR 3 VIEWS [facility] Mar 15, 2025 10:49 AM Laboratory - Chemistry Order SHIGA TOXIN 1 STOOL FECES WC ONCE [facility] Mar 15, 2025 10:49 AM Laboratory - Chemistry Order SHIGA TOXIN 2 STOOL FECES WC ONCE [facility] Mar 15, 2025 10:49 AM Laboratory - Microbiology Order C&S STOOL STOOL FECES WC [facility] Mar 15, 2025 10:49 AM Laboratory - Chemistry Order C DIFF EPI PCR PNL STOOL, PARA-PACK CLEAN FECES SP [facility] Mar 15, 2025 10:49 AM Laboratory - Microbiology Order PARASITE EXAM (STL) STOOL, PARA-PACK CLEAN FECES SP [facility] Mar 15, 2025 10:49 AM Consult Order GI DIAGNOSTIC COLONOSCOPY OUTPATIENT JESSICA Cons Senior Business Analyst's Choice [facility] Mar 19, 2025 12:00 AM Laboratory - Chemistry Order PROTEIN C ACTIVITY(STL-MA-PB) BLUE,LIGHT(SODIUM CITRATE) PLASMA SP [facility] Lab Results: +/- 30 days of the encounter This section includes the Chemistry and Hematology Lab Results on record with [place] for the patient. Radiology Reports and Pathology Reports are provided separately, in subsequent sections. Lab Results This section contains the Chemistry/Hematology Results that were resulted 30 days before or 30 daysafter the date of the Encounter. Date/Time Source Result Type Result - Unit Interpretation Reference Range Specimen Type Comment Mar 08, 2025 12:00 PM [facility] PROTHROMBIN GENE ANALYSIS FACTOR II MUT BLOOD Specimen Type: BLOOD Comment: RESULT: [id number] VARIANT NOT DETECTED INTERPRETATION: This individual is negative (normal) for the [id number] variant in the Prothrombin/Fact or II gene. Increased risk of thrombophilia can be caused by a variety of genetic and non-genetic factors not screened for by this assay. Ordering Provider: STU FABIAN Report Released Date/Time: Mar 01, 2025 09:36 AM Reporting Lab: [address] [address] Performing Lab: [address] PROTHROMBIN GENE ANALYSIS FACTOR II MUT NEG Mar 08, 2025 12:00 PM [facility] PROTEIN S ACTIVITY(STL-MA-PB) PLASMA Specimen Type: PLASMA Comment: Test Performed by [facility], [place] [facility], [address] [place] [address] Juan Hassan M.D., Ph.D., Director of Laboratories , [facility] [id number] Ordering Provider: STU FABIAN Report Released Date/Time: Mar 01, 2025 09:36 AM Reporting Lab: [address] [address] Performing Lab: [address] PROTEIN S ACTIVITY(STL-MA-PB) 94 70 -150 Mar 08, 2025 12:00 PM [facility] PROTEIN URINE URINE Specimen Type: URINE No comment entered. Ordering Provider: STU FABIAN Report Released Date/Time: Mar 01, 2025 09:36 AM Reporting Lab: [address] [address] Performing Lab: [address] [address] PROTEIN URINE 20.5 mg/dL Mar 08, 2025 12:00 PM [facility] CREATININE URINE/OTHERS URINE Specimen Type: URINE No comment entered. Ordering Provider: STU FABIAN Report Released Date/Time: Mar 01, 2025 09:36 AM Reporting Lab: [address] [address] Performing Lab: [address] [address] CREATININE URINE/OTHERS 249.6 mg/dL H 63-1 66 Mar 08, 2025 12:00 PM [facility] PT/INR NEW (STL-MA) PLASMA Specimen Type: PLAS MA No comment entered. Ordering Provider: STU FABIAN Report Released Date/Time: Mar 01, 2025 09:36 AM Reporting Lab: [address] [address] Performing Lab: [place] [address] [facility] [address] PROTIME 15.6 s H 9.4-12.5 INR VALUE 1.4 {INR} Mar 08, 2025 12:00 PM [facility] APTT PLASMA Specimen Type: PLASM A No comment entered. Ordering Provider: STU FABIAN Report Released Date/Time: Mar 01, 2025 09:36 AM Reporting Lab: [address] [address] Performing Lab: [address] [address] APTT 31.4 s 26.7-39.9 Mar 08, 2025 12:00 PM [facility] MICRAL/CREAT PROFILE (STL) URINE Specimen Typ e: URINE No comment entered. Ordering Provider: STU FABIAN Report Released Date/Time: Mar 01, 2025 09:36 AM Reporting Lab: [address] [address] Performing Lab: [address] [address] URINE ALBUMIN (PB-STL) 33.1 mg/L uACR (STL) 13 mg/g 0-29 CREATININE URINE/OTHERS 251.3 mg/dL H 63-1 66 Mar 08, 2025 12:00 PM [facility] HBPC GLUCOSE PLASMA Specimen Type: PLASM A No comment entered. Ordering Provider: STU FABIAN Report Released Date/Time: Mar 01, 2025 09:36 AM Reporting Lab: [facility] [address] [facility] [address] Performing Lab: [facility] [address] [facility] [address] HBPC GLUCOSE 134 mg/dL H 72-99 Mar 08, 2025 12:00 PM [facility] TSH (MA-PB) SERUM Specimen Type: SERUM No comment entered. Ordering Provider: STU FABIAN Report Released Date/Time: Mar 01, 2025 09:36 AM Reporting Lab: [facility] [address] [facility] [address] Performing Lab: [address] [address] TSH 0.702 u[IU]/mL 0.47-5 Mar 08, 2025 12:00 PM [facility] B12 SERUM Specimen Type: SERUM No comment entered. Ordering Provider: STU FABIAN Report Released Date/Time: Mar 01, 2025 09:36 AM Reporting Lab: [facility] [address] [facility] [address] Performing Lab: [facility] [address] [facility] [address] B12 592 pg/mL 213-816 Mar 08, 2025 12:00 PM [facility] FOLATE (STL-MA) SERUM Specimen Type: SERUM No comment entered. Ordering Provider: STU FABIAN Report Released Date/Time: Mar 01, 2025 09:36 AM Reporting Lab: [address] [address] Performing Lab: [address] [address] FOLATE (STL-MA) 4.8 ng/mL L 7-20 Mar 08, 2025 12:00 PM [facility]PC CMP PLASMA Specimen Type: PLASM A Comment: No hemolysis noted. Ordering Provider: STU FABIAN Report Released Date/Time: Mar 01, 2025 09:36 AM Reporting Lab: [address] [address] Performing Lab: [address] [address] CREATININE 0.78 mg/dL 0.7-1.3 UREA NITROGEN 15.6 [...] 90.2 >60 Mar 08, 2025 12:00 PM [facility] VITAMIN D, 25-HYDROXY SERUM Specimen Type: SE RUM No comment entered. Ordering Provider: STU FABIAN Report Released Date/Time: Mar 01, 2025 09:36 AM Reporting Lab: [address] [address] Performing Lab: [address] [address] VITAMIN D, 25-HYDROXY 28.3 ng/mL L 30-96 Mar 08, 2025 12:00 PM [facility] LIPID PANEL (STL) PLASMA Specimen Type: PLASM A Comment: No hemolysis noted. Ordering Provider: STU FABIAN Report Released Date/Time: Mar 01, 2025 09:36 AM Reporting Lab: [address] [address] Performing Lab: [address] [address] CHOLESTEROL 136 mg/dL 0-200 TRIGLYCERIDE 138 mg/dL 0-150 CALCULATED LDL 70 mg/dL HDL(New) 38 mg/dL L >40 Mar 08, 2025 12:00 PM [facility] HGA1C BLOOD Specimen Type: BLOOD No comment entered. Ordering Provider: STU FABIAN Report Released Date/Time: Mar 01, 2025 09:36 AM Reporting Lab: [facility] [address] [place] [address] Performing Lab: [address] [address] HGA1C 6.6 Mar 08, 2025 12:00 PM [facility] CBC BLOOD Specimen Type: BLOOD Comment: ~THIS TEST SHOULD ONLY BE USED BY [facility] Ordering Provider: STU FABIAN Report Released Date/Time: Mar 01, 2025 09:36 AM Reporting Lab: [address] [address] Performing Lab: [address] [address] WBC 3.3 10*3/uL L 3.6-11.2 RBC 3.50 [...] SCRNPERF YES Mar 08, 2025 12:00 PM [facility] CYSTATIN C EGFR PANELS (STL-PB-MA) PLASMA Spec imen Type: PLASMA Comment: Choice of which of the reported eGFR values to use depends on the clinical situation. For example, for patients with severe muscle wasting or reduced muscle mass, eGFR calculated using the 2012 cystatin equation may be preferred. Ordering Provider: STU FABIAN Report Released Date/Time: Mar 01, 2025 09:36 AM Reporting Lab: [address] [address] Performing Lab: [address] [address] CYSTATIN C 1.66 mg/L 0.57-1.80 CKD-EPI CYSTATIN C (2011) 36.6 >60 CKD-EPI CREAT-CYSC (2020) 57.4 >60 CREATININE ([facility]) 0.76 mg/dL 0.7-1.3 Mar 08, 2025 12:00 PM [facility] FERRITIN SERUM Specimen Type: SERUM No comment entered. Ordering Provider: STU FABIAN Report Released Date/Time: Mar 01, 2025 09:36 AM Reporting Lab: [address] [address] Performing Lab: [address] [address] FERRITIN 61.70 ng/mL 22-275 Mar 08, 2025 12:00 PM [facility] IRON/TIBC PROFILE SERUM Specimen Type: SERUM No comment entered. Ordering Provider: STU FABIAN Report Released Date/Time: Mar 01, 2025 09:36 AM Reporting Lab: [address] [address] Performing Lab: [address] [address] TIBC 190 ug/dL L 250-450 TRANSFERRIN 152 mg/dL L 163-344 IRON SATURATION 25 20-50 IRON 47 ug/dL L 65-175 Mar 08, 2025 12:00 PM [facility] URINALYSIS W/O REFLEX CX (STL-PB) URINE Speci men Type: URINE No comment entered. Ordering Provider: STU FABIAN Report Released Date/Time: Mar 01, 2025 09:36 AM Reporting Lab: [address] [address] Performing Lab: [address] [address] URINE COLOR Yellow Yellow U.BILIRUBIN Negative mg/dL [...] 1.038 H Mar 08, 2025 12:00 PM [facility] RETICULOCYTE PANEL BLOOD Specimen Type: BLOOD Comment: ~THIS TEST SHOULD ONLY BE USED BY HB Ordering Provider: STU FABIAN Report Released Date/Time: Mar 01, 2025 09:36 AM Reporting Lab: [place] [address] Performing Lab: [place] [phone] RETIC RATIO 1.65 0.50-2.30 IRF 18.2 H 2.3-13.4 RETICULOCYTE HEMOGLOBIN EQUIVALENT 35.0 pg 28.2-36.6 RETIC COUNT,ABS 0.058 10*6/uL 0.022-0.10 1 Feb 10, 2025 12:51 PM [facility] GLUCOSE,BLOOD-poct (STL) BLOOD Specimen Type: BLOOD Comment: Test Performed by: [id number] Meter #: [id number] Ordering Provider: ANN BEASLEY Report Released Date/Time: Feb 10, 2025 12:53 PM Reporting Lab: [place] [address] [facility] [address] Performing Lab: [place] [address] [facility] [address] GLUCOSE,BLOOD-poct (STL) 199 mg/dL H 72-99 Feb 10, 2025 05:13 AM [facility] GLUCOSE,BLOOD-poct (STL) BLOOD Specimen Type: BLOOD Comment: Test Performed by: [id number] Meter #: [id number] Ordering Provider: ANN BEASLEY Report Released Date/Time: Feb 10, 2025 05:37 AM Reporting Lab: [place] [address] [facility] [address] Performing Lab: [address] [address] GLUCOSE,BLOOD-poct (STL) 95 mg/dL 72-99 Feb 09, 2025 11:20 PM [facility] APTT PLASMA Specimen Type: PLASM A Comment: ~HEP BOLUS - CALL RESULTS Ordering Provider: JESSE BURGOS Report Released Date/Time: Feb 09, 2025 04:35 PM Reporting Lab: [place] [address] [facility] [address] Performing Lab: [address] [address] APTT 29.9 s 26.7-39.9 Feb 09, 2025 08:35 PM [facility] GLUCOSE,BLOOD-poct (STL) BLOOD Specimen Type: BLOOD Comment: Test Performed by: [id number] Meter #: [id number] Ordering Provider: ANN BEASLEY Report Released Date/Time: Feb 09, 2025 08:41 PM Reporting Lab: [place] [address] [facility] [address] Performing Lab: [place] [address] [facility] [address] GLUCOSE,BLOOD-poct (STL) 159 mg/dL H 72-99 Feb 09, 2025 05:22 PM [facility] MRSA SURVL NARES DNA NARES Specimen Type: [...] Feb 09, 2025 04:31 PM Reporting Lab: [address] [address] Performing Lab: [address] [address] MRSA SURVL NARES DNA Negative Negative Feb 09, 2025 05:00 PM [facility] APTT PLASMA Specimen Type: PLASM A Comment: ~HEP BOLUS-CALL RESULTS Ordering Provider: JESSE BURGOS Report Released Date/Time: Feb 09, 2025 04:35 PM Reporting Lab: [address] [address] Performing Lab: [address] [address] APTT 28.0 s 26.7-39.9 Feb 09, 2025 04:59 PM [facility] GLUCOSE,BLOOD-poct (STL) BLOOD Specimen Type: BLOOD Comment: Test Performed by: [id number] Meter #: [id number] Ordering Provider: ANN BEASLEY Report Released Date/Time: Feb 09, 2025 05:02 PM Reporting Lab: [address] [address] Performing Lab: [address] [address] GLUCOSE,BLOOD-poct (STL) 162 mg/dL H 72-99 Feb 09, 2025 01:55 PM [facility] LACTIC ACID (STL-PB) PLASMA Specimen Type: TAMARA SMA No comment entered. Ordering Provider: CHINO LEONG I Report Released Date/Time: Feb 09, 2025 01:44 PM Reporting Lab: [place] [address] [facility] [address] Performing Lab: [address] [address] LACTIC ACID (STL-PB) 2.9 mmol/L H 0.5-2.0 Feb 09, 2025 11:52 AM [facility] BLOOD GAS PANEL ABG ([facility]) VENOUS BLOOD Specimen Type : VENOUS BLOOD Comment: Test Performed by: [id number] Meter #: [id number] Ordering Provider: ANNIE ARGUETA Report Released Date/Time: Feb 09, 2025 11:53 AM Reporting Lab: [place] [address] [facility] [address] Performing Lab: [place] [address] [facility] [address] GEM PH 7.40 7.31-7.41 GEM PCO2 36 [...] TEMP 37.0 Feb 09, 2025 11:51 AM [facility] BRAIN NATRIURETIC PEPTIDE PLASMA Specimen Type : PLASMA No comment entered. Ordering Provider: CHINO LEONG I Report Released Date/Time: Feb 09, 2025 01:19 PM Reporting Lab: [address] [address] Performing Lab: [address] [address] BRAIN NATRIURETIC PEPTIDE 341.6 pg/mL H 0- 100 Feb 09, 2025 11:31 AM [facility] TROPONIN I (STL) PLASMA Specimen Type: PLASM A Comment: No hemolysis noted. Ordering Provider: KESHIA HUYNH Report Released Date/Time: Feb 09, 2025 11:30 AM Reporting Lab: [address] [address] Performing Lab: [address] [address] TROPONIN I (STL) 0.019 ng/mL 0-0.033 Feb 09, 2025 11:31 AM [facility] COMPREHENSIVE METABOLIC PANEL PLASMA Specimen Type: PLASMA Comment: No hemolysis noted. Ordering Provider: KESHIA HUYNH Report Released Date/Time: Feb 09, 2025 11:30 AM Reporting Lab: [address] [address] Performing Lab: [address] [address] CREATININE 0.96 mg/dL 0.7-1.3 UREA NITROGEN 16.8 [...] 80.4 >60 Feb 09, 2025 11:31 AM [facility] CBC BLOOD Specimen Type: BLOOD No comment entered. Ordering Provider: KESHIA HUYNH Report Released Date/Time: Feb 09, 2025 11:30 AM Reporting Lab: [address] [address] Performing Lab: [address] [address] WBC 5.6 10*3/uL 3.6-11.2 RBC 3.71 10*6/uL [...] 0.00-0. 20 Feb 09, 2025 11:20 AM [facility] GLUCOSE,BLOOD-poct (STL) BLOOD Specimen Type: BLOOD Comment: Test Performed by: [id number] Meter #: [id number] Ordering Provider: ANNIE ARGUETA Report Released Date/Time: Feb 09, 2025 11:22 AM Reporting Lab: [address] [address] Performing Lab: [facility] [address] [facility] [address] GLUCOSE,BLOOD-poct (STL) 161 mg/dL H 72-99 Vital Signs: All taken on the encounter date This section contains inpatient and outpatient Vital Signs collected on the date of the Encounter. Date/Time Temperature Pulse Blood Pressure Respiratory Rate SP02 Pain Height Weight Body Mass Index Source Feb 10, 2025 12:43 PM 99.3 F 80 /min 117/69 mm[Hg] 2 /min 92 % [address] [facility] Feb 10, 2025 12:21 PM [address] [facility] Feb 10, 2025 08:38 AM 97.9 F 91 /min 142/81 mm[Hg] 18 /min 95 % [address] [facility] Feb 10, 2025 05:26 AM [address] [facility] Feb 10, 2025 05:12 AM 98.4 F 84 /min 139/77 mm[Hg] 18 /min 96 % 7 [facility] N Social History: Smoking Status (Most [...] Vanessa eaton Jun 10, 2024 11:21 AM [place]-TOBACCO NEVER U SED OTHER TYPE [facility] Tobacco Use History This section includes a history of the smoking, or tobacco-related health factors, that were collected on or before the date of the Encounter. The data comes from the [place] facility where the Encounter took place. Date/Time Smoking Status/Tobacco Use Comment F jose Jun 10, 2024 11:21 AM GA-TOBACCO USE FOR HANK CIGARETTES [facility] Radiology Reports: +/- 30 days of the [...] EXTREMITY VEINS BILAT (DVT): JOSE MARIA WHITE [id number] -1945 M Exm Date: FEB 10, 2025@11:29 Req Phys: JESSE BURGSO Julio Cesar Pat Loc: 6N S OE-JESSICA/02-10-2025@13:14 Img Loc: JESSICA-ULTRASOUND JESSICA Service: [id number] SERVICE [address] [address] (Case [id number] COMPLETE) US EXTREMITY VEINS BILAT (DVT) (US Detailed) CPT:58975 Reason for Study: dx with PE Clinical History: Report Status: Verified Date Reported: FEB 10, 2025 Date Verified: FEB 10, 2025 Loan And Credit Manager E-Sig:/ES/David Pastrana MD Report: CASE #: [id number] DATE:02/10/2025 12:51 PM CLINICAL HISTORY:dx with PE [...] verification. Dictated by Chastity Mantilla M.D. (Diagnostic Embedded Software Test Engineer). I, David Pastrana, have reviewed the images and report and concur with these findings. Primary Interpreting Staff: David Pastrana MD, Radiologist (Loan And Credit Manager) Primary Interpreting Resident: Chastity Mantilla MD, Resident Physician /DAVID WILCOX [facility] Feb 09, 2025 03:[address] PE CHEST W/3D: JOSE MARIA WHITE [id number] -1945 M Exm Date: FEB 09, 2025@15:10 Req Phys: CHINO LEONG I Pat Loc: 6N S -JESSICA/02-09-2025@16:39 Img Loc: JESSICA-CT IMAGING JESSICA Service: [address] [address] (Case [id number] COMPLETE) CT THORAX W/CONT (PE) (CT Detailed) CPT:39884 Contrast Media : unspecified contrast media Reason for Study: syncope, abormanl CXR Clinical History: Responsible Attending: Mariam Attending Contact Number: [id number] Resident Contact Number: syncope, abormanl CXR Allergies listed in CPRS chart: PENICILLIN, TETRACYCLINE, NEOSPORIN, CELEBREX, SIMVASTATIN Creatinine: CREATININE 0.96 mg/dL 02/09/2025 11:31 /eGFR: STL EGFR (within one year). CREATININE 0.96 mg/dL (02/09/25 11:31) Wt: 273.5 lb [124.06 kg] (09/10/2023 13:16) History of: Renal failure, chronic or acute renal disease: NO Report Status: Verified Date Reported: FEB 09, 2025 Date Verified: FEB 09, 2025 Loan And Credit Manager E-Sig:/ES/REA MARLEY Report: CASE #: [id number] DATE:02/09/2025 4:08 PM CLINICAL HISTORY:syncope, abormanl CXR [...] confirmation. Dictated by Jamal Chiu M.D. (Diagnostic Embedded Software Test Engineer). I, Rea Marley, have reviewed the images and report and concur with these findings. Primary Interpreting Staff: REA MARLEY, Staff Physician (Loan And Credit Manager) Primary Interpreting Resident: JAMAL CHIU Resident Physician /REA HOPE [facility] Feb 09, 2025 01:[address] HEAD W/O CONT: JOSE MARIA WHITE [id number] -1945 Ex Date: FEB 09, 2025@13:01 Req Phys: CHINO LEONG Loc: JESSICA-EMERGENCY DEPT 2ND SHIFT (R Img Loc: JESSICA-CT IMAGING JESSICA Service: Unknown [facility], [facility] [address] [place] [address] (Case [id number] COMPLETE) CT HEAD W/O CONT (CT Detailed) CPT:93842 Reason for Study: syncopal episode Clinical History: Responsible Attending: Mariam Attending Contact Number: [phone] Resident Contact Number: syncopal episode Allergies listed in CPRS chart: PENICILLIN, TETRACYCLINE, NEOSPORIN, CELEBREX, SIMVASTATIN Creatinine: CREATININE 0.90 mg/dL 08/07/2024 14:00 /eGFR: STL EGFR (within one year). CREATININE 0.90 mg/dL (08/07/24 14:00) Wt: 273.5 lb [124.06 kg] (09/10/2023 13:16) History of: Renal failure, chronic or acute renal disease: NO Report Status: Verified Date Reported: FEB 09, 2025 Date Verified: FEB 09, 2025 Loan And Credit Manager E-Sig:/ES/REA MARLEY Report: CASE #: [id number] DATE:02/09/2025 1:35 PM CLINICAL HISTORY:syncopal episode TECHNIQUE: [...] process. Dictated by Jamal Chiu M.D. (Diagnostic Embedded Software Test Engineer). I, Rea Marley, have reviewed the images and report and concur with these findings. Primary Interpreting Staff: REA MARLEY, Staff Physician (Loan And Credit Manager) Primary Interpreting Resident: JAMAL CHIU, Resident Physician /REA HOPE [facility] Feb 09, 2025 11:32 AM CHEST PORTABLE: JOSE MARIA WHITE RODRIGUE [id number] -1945 M Exm Date: FEB 09, 2025@11:32 Req Phys: KESHIA HUYNH Loc: JESSICA-EMERGENCY DEPT 2ND SHIFT (R Img Loc: JESSICA-MAIN RADIOLOGY SUITE Service: Unknown [facility], [facility] [address] [place] [address] (Case [id number] COMPLETE) CHEST PORTABLE (RAD Detailed) CPT:45717 Proc Modifiers : Portable Reason for Study: hypotension Clinical History: Report Status: Verified Date Reported: FEB 09, 2025 Date Verified: FEB 09, 2025 Loan And Credit Manager E-Sig:/ES/David Pastrana MD Report: CASE [id number]. AP portable view chest. COMPARISON: FINDINGS: Bilateral [...] effusion. Dictated by Jamal Chiu M.D. (Diagnostic Embedded Software Test Engineer). I, David Pastrana, have reviewed the images and report and concur with these findings. Primary Interpreting Staff: David Pastrana MD, Radiologist (Loan And Credit Manager) Primary Interpreting Resident: Resident HAL Physician /DAVID WADE [facility] Pathology Reports: +/- 30 [...] MICROBIOLOGY RE PORT: Accession [UID]: [id number] [[id number]] Received: Feb 09, 2025@12:29 Collection sample: B D BLD. BOTTLE Collection date: Feb 09, 2025 12:20 Site/Specimen: BLOOD Provider: ANNIE ARGUETA Test(s) ordered: BLOOD CULT (SET 1)............ completed: Feb 15, 2025 12:44 * BACTERIOLOGY FINAL REPORT => Feb 15, 2025 12:46 TECH CODE: [id number] Bacteriology Remark(s): 02/10/25 CMG CULTURE IS NEGATIVE TO DATE, ALL POSITIVES ARE ROUTINELY CALLED. Culture shows NO GROWTH IN 6 DAYS. 02/15/25 CED =--=--=--=--=--=--=--=--=--=- -=--=--=--=--=--=--=--=--=--= --=--=--=--=--=--=-- Performing Laboratory: Bacteriology Report Performed By: [address] [id number] [place] [address] Bact Report Remark Performed By: [address] [id number] [address] [place] [address] Feb 09, 2025 12:15 PM LR MICROBIOLOGY RE PORT: Accession [UID]: [id number] [[id number]] Received: Feb 09, 2025@12:29 Collection sample: B D BLD. BOTTLE (SET 2)Collection date: Feb 09, 2025 12:15 Site/Specimen: BLOOD Provider: ANNIE ARGUETA Test(s) ordered: BLOOD CULT (SET 2)............ completed: Feb 15, 2025 12:45 * BACTERIOLOGY FINAL REPORT => Feb 15, 2025 12:46 TECH CODE: [id number] Bacteriology Remark(s): 02/10/25 CMG CULTURE IS NEGATIVE TO DATE, ALL POSITIVES ARE ROUTINELY CALLED. Culture shows NO GROWTH IN 6 DAYS. 02/15/25 CED =--=--=--=--=--=--=--=--=--=- -=--=--=--=--=--=--=--=--=--= --=--=--=--=--=--=-- Performing Laboratory: Bacteriology Report Performed By: [address] CLIA# [id number] [address] [address] Bact Report Remark Performed By: [address] [id number] [address] [place] [id number] [place] [address] Encounter Notes: All associated encounter notes This section contains the clinical notes associated to the Encounter. Date/Time Encounter Note(s) Provider Source Feb 10, 2025 01:00 PM PASTORAL CARE NOTE : LOCAL TITLE: PASTORAL CARE NOTE STANDARD TITLE: PASTORAL CARE NOTE DATE OF NOTE: FEB 10, 2025@13:00 ENTRY DATE: FEB 10, 2025@13:33:28 AUTHOR: GABRIEL ZAMUDIO COSIGNER: RAPHAEL GREEN URGENCY: STATUS: COMPLETED Pastoral Visit: Initial Length of Visit: 10 Minutes Prosthetic Aides Teacher met with: Location: Patient Room Shinto Preference: Restorationism Initial Interaction: Introduced self was sitting on his bed the entire visit. 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 He expressed that he and his late had a large [employer]. He indicated his daughter moved him to [place] and then she left to go back to [place], and he really misses [place]. He indicated that he was about to be discharged and be transport home in [place]. Discussed 's concerns regarding: condition indicated that he came into the hospital for health issues, which he didn't describe. INTERVENTION Offered / accepted: blessing, prayer, pastoral support, ministry of presence, spiritual counseling, supportive listening Prosthetic Aides Teacher blessed and prayed with the ; offered words of hope and encouragement; actively listened; offered emotional and spiritual support. OUTCOMES [facility]'s Response: expressed appreciation for the visit Observations: appeared to be in same state of mind as at beginning of encounter Prosthetic Aides Teacher will be available to as needed throughout this admission. /cas/ GABRIEL ZAMUDIO Prosthetic Aides Teacher Airplane Pilot Chief Signed: 02/10/2025 13:40 /es/ RAPHAEL GREEN MA, MDIV VINEYARDIST Cosigned: 02/10/2025 16:21 [facility]
--- OUTSIDE RECORDS SUMMARY | 2025-02-22 04:01 | XMS_ITS | Encounter Summary ---
Author Name Department of Vetera Affairs ([place]) Organization [facility] ([place]) Address [address] [place] [address] Care Team Providers Care Taxicab Coordinator Name Role Phone GRACE QUINN Primary Care Provider UnavailKAYODE Marquez Primary Care Provider Unavail able RACHAEL CARDONA Unavailable Unavailable GABRIELLE QUINN Unavailable Unavailable ROBINSON DAWKINS Unavailable Unavailable CALVIN OSEI Unavailable Unavailable ABDON PECK Unavailable Unavailable CHINYERE DOMINGUEZ Unavailable Unavailable VILMA CEDILLO Unavailable Unavailable AUSTIN HOWARD Unavailable Unavailable STU FABIAN Primary Care Provider UnavailCÉSAR Naik Unavailable Unavailable SHARON HOLCOMB Unavailable Unavailable TATIANNA DILL Unavailable Unavailable PATRICE [...] Medina's Name Patient's Relationship to Policy Medina [facility] MEDICARE SUPPLEMEN SHEILA PLANF Mar 25, 2016 PLAN [id number] [phone] ISMAELSANARAJI JOSE MARIA PATIENT [facility] MEDICARE SUPPLEMEN SHEILA PLANF Oct 23, 2010 PLANF [id number] [phone] ISMAELSANARAJI JOSE MARIA PATIENT [facility] MEDICARE SUPPLEMEN TAL PLAN Mar 25, 2016 PLANF [id number] JOSE MARIA WHITEP MED SUPP MEDICARE SUPPLEMEN TAL PLAN Oct 23, 2010 PLAN [id number] [phone] JOSE MARIA WHITE AARP [facility] (WNR) MEDICARE ADVANTAGE [facility] (WNR) July 24, 2023 [id number] JOSE MARIA WHITE PATIENT MEDICARE (WNR) MEDICARE (M) PART A July 24, 2003 PART A [id number] JOSE MARIA WHITE PATIENT MEDICARE (WNR) MEDICARE (M) PART B July 24, 2003 PART B [id number] JOSE MARIA WHITE PATIENT MEDICARE (WNR) MEDICARE (M) PART A July 24, 2003 PART A [id number] JOSE MARIA WHITE PATIENT [facility] (WNR) MEDICARE ADVANTAGE MCR (WNR) Mar 25, 2024 [id number] JOSE MARIA WHITE PATIENT [facility] (WNR) MEDICARE ADVANTAGE MCR (WNR) Mar 25, 2024 [id number] JOSE MARIA WHITE PATIENT Selected Encounter This section includes the information on record at [place] for the Encounter. Date/Time Encounter Type Encounter Description Reason Provider Source Feb 22, 2025 10:01 AM [facility]-SERV OF PT,EA 15 MIN [facility] - THERAPIST ICD-10-CM E11.40 Type 2 diabetes mellitus with diabetic neuropathy, DESI Perdomo Vincent Encounter Template Text not used by [place] Assessments - Encounter Diagnoses This section includes the primary and secondary diagnoses documented for the Encounter. Date/Time Primary/Secondary Diagnosis Diagnosis Name Provider Source Feb 22, 2025 01:39 PM PRIMARY Type 2 diabetes mellitus with diabetic neuropathy, AMOS Perdomo [facility] Feb 22, 2025 01:39 PM SECONDARY Radiculopathy, lumbar region AMOS BOWERS [facility] Plan of Treatment: Future Appointments (+ 6 months) and Future Tests (+/- 45 days) The Plan of Treatment section includes future care activities for the patient from all [place] [facility]. This section includes future appointments and future orders which are active, pending or scheduled. Future Appointments This section includes appointments that were scheduled to occur 6 months from the date of the Encounter, up to a maximum of 20 appointments. The data comes from all [place] treatment [facility]. Appointment Date/Time Appointment Type Appointme nt Facility Name Mar 15, 2025 01:30 PM AMBULATORY - NONE [facility] Mar 31, 2025 10:00 AM AMBULATORY - MEDICINE [facility] Mar 31, 2025 12:00 PM AMBULATORY - SURGERY [facility] Mar 31, 2025 02:30 PM AMBULATORY - MEDICINE [facility] Apr 09, 2025 11:00 AM AMBULATORY - MEDICINE [facility] May 03, 2025 03:00 PM AMBULATORY [...] of theEncounter. The data comes from all [facility]. 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 STL Cons Core Java Engineer's Choice [facility] Jan 15, 2025 12:00 AM Laboratory - Chemistry Order CELIAC DISEASE PANEL (STL-MRN) GOLD/RED SST SERUM SP ONCE [facility] Jan 15, 2025 12:00 AM Laboratory - Chemistry Order IRON/TIBC PROFILE GOLD/RED SST SERUM SP [facility] Jan 15, 2025 12:00 AM Laboratory - Chemistry Order ANTI-NUCLEAR ANTIBODY (STL-PB) GOLD/RED SST SERUM SP [facility] Jan 15, 2025 12:00 AM Laboratory - Chemistry Order ANTI-MITOCHONDRIAL AB (STL-PB) GOLD/RED SST SERUM SP [facility] Jan 15, 2025 12:00 AM Laboratory - Chemistry Order ACTIN (SMOOTHMUSCLE) ANTIBODY IGG GOLD/RED SST SERUM SP [facility] Jan 15, 2025 12:00 AM Laboratory - Chemistry Order HEP HB S Ag (AUSRIA) (STL) GOLD/RED SST SERUM SP [facility] Jan 15, 2025 12:00 AM Laboratory - Chemistry Order IGG (STL) GOLD/RED SST SERUM SP [facility] Jan 15, 2025 12:00 AM Laboratory - Chemistry Order HEP B CORE AB TOTAL. (STL) GOLD/RED SST SERUM [facility] Jan 15, 2025 12:00 AM Laboratory - Chemistry Order HEPATITIS B SURFACE AB PNL GOLD/RED SST SERUM [facility] Jan 15, 2025 12:00 AM Laboratory - Chemistry Order HEPATITIS A IGG AB (STL) GOLD/RED SST SERUM [facility] Jan 15, 2025 12:00 AM Laboratory - Chemistry Order HEPATIC FUNTION PANEL (STL) GREEN LI/HEP BLD/PLAS PLASMA SP [facility] Jan 15, 2025 12:00 AM Laboratory - Chemistry Order FERRITIN GOLD/RED SST SERUM [facility] Jan 15, 2025 12:00 AM Laboratory - Chemistry Order ALPHA-1 ANTITRYPSIN (STL-PB) GOLD/RED SST SERUM SP [facility] Jan 15, 2025 12:00 AM Laboratory - Chemistry Order HEP C Ab HCV Ab (STL) GOLD/RED SST SERUM [facility] Feb 09, 2025 12:18 PM Laboratory - Chemistry Order URINALYSIS W/ CX REFLEX (STL-PB) URN - CLEAN CATCH URINE WC ONCE [facility] Mar 01, 2025 12:00 AM Laboratory - Chemistry Order OCCULT BLOOD FIT X1 SCREEN STOOL FECES SP [facility] Mar 01, 2025 12:00 AM Laboratory - Microbiology Order C&S URINE URINE HOLT WC ONCE [facility] Mar 01, 2025 12:00 AM Laboratory - Chemistry Order ANTITHROMBIN III ACTIVITY BLUE,LIGHT(SODIUM CITRATE) PLASMA [facility] Mar 01, 2025 09:36 AM Consult Order EYE CLINIC OUTPT JESSICA Cons Core [employer] Engineer's Choice [facility] Mar 01, 2025 09:36 AM Consult Order VASCULAR LAB OUTPT STL Cons Core [employer] Engineer's Choice [facility] Mar 01, 2025 09:36 AM Consult Order CARDIOLOGY OUTPT JESSICA Cons Core [employer] Engineer's Choice [facility] Mar 08, 2025 12:00 PM Laboratory - Chemistry Order FACTOR V(LEIDEN)MUTATION ANALYSIS BLOOD [facility] Mar 09, 2025 12:00 AM Laboratory - Chemistry Order URINE DRUG SCREEN (STL) URINE YELLOW [facility] Mar 15, 2025 12:00 AM Laboratory - Chemistry Order LACTOFERRIN,STOOL (STL-MA-PB) STOOL FECES [facility] Mar 15, 2025 12:00 AM Laboratory - Chemistry Order ANTI-NUCLEAR ANTIBODY (STL-PB) GOLD/RED SST SERUM [facility] Mar 15, 2025 12:00 AM Laboratory - Chemistry Order ANTI-MITOCHONDRIAL AB (STL-PB) GOLD/RED SST SERUM [facility] Mar 15, 2025 12:00 AM Laboratory - Chemistry Order ACTIN (SMOOTHMUSCLE) ANTIBODY IGG GOLD/RED SST SERUM [facility] Mar 15, 2025 12:00 AM Laboratory - Chemistry Order HEP C Ab HCV Ab (STL) GOLD/RED SST SERUM [facility] Mar 15, 2025 12:00 AM Laboratory - Chemistry Order HEP HB S Ag (AUSRIA) (STL) GOLD/RED SST SERUM [facility] Mar 15, 2025 12:00 AM Laboratory - Chemistry Order IGG (STL) GOLD/RED SST SERUM [facility] Mar 15, 2025 12:00 AM Laboratory - Chemistry Order HEPATITIS B SURFACE AB PNL GOLD/RED SST SERUM [facility] Mar 15, 2025 12:00 AM Laboratory - Chemistry Order HEP B CORE AB TOTAL. (STL) GOLD/RED SST SERUM [facility] Mar 15, 2025 12:00 AM Laboratory - Chemistry Order HEPATITIS A IGG AB (STL) GOLD/RED SST SERUM [facility] Mar 15, 2025 12:00 AM Laboratory - Chemistry Order ALPHA-1 ANTITRYPSIN (STL-PB) GOLD/RED SST SERUM SP [facility] Mar 15, 2025 12:00 AM Laboratory - Chemistry Order CELIAC DISEASE PANEL (STL-MRN) GOLD/RED SST SERUM SP ONCE [facility] Mar 15, 2025 12:00 AM Imaging - General Radiology Order SPINE LUMBOSACRAL 2 OR 3 VIEWS [facility] Mar 15, 2025 10:49 AM Laboratory - Chemistry Order SHIGA TOXIN 1 STOOL FECES WC ONCE [facility] Mar 15, 2025 10:49 AM Laboratory - Chemistry Order SHIGA TOXIN 2 STOOL FECES WC ONCE [facility] Mar 15, 2025 10:49 AM Laboratory - Microbiology Order C&S STOOL STOOL FECES WC [facility] Mar 15, 2025 10:49 AM Laboratory - Chemistry Order C DIFF EPI PCR PNL STOOL, PARA-PACK CLEAN FECES SP [facility] Mar 15, 2025 10:49 AM Laboratory - Microbiology Order PARASITE EXAM (STL) STOOL, PARA-PACK CLEAN FECES SP [facility] Mar 15, 2025 10:49 AM Consult Order GI DIAGNOSTIC COLONOSCOPY OUTPATIENT JESSICA Cons Core Java Engineer's Choice [facility] Mar 19, 2025 12:00 AM Laboratory - Chemistry Order PROTEIN C ACTIVITY(STL-MA-PB) BLUE,LIGHT(SODIUM CITRATE) PLASMA SP [facility] Mar 31, 2025 12:00 AM Imaging - Ultrasound Order US ABDOMEN LIMITED W/BLOOD FLOW DOPPLER [facility] Lab Results: +/- 30 days of the encounter This section includes the Chemistry and Hematology Lab Results on record with [place] for the patient. Radiology Reports and Pathology Reports are provided separately, in subsequent sections. Lab Results This section contains the Chemistry/Hematology Results that were resulted 30 days before or 30 daysafter the date of the Encounter. Date/Time Source Result Type Result - Unit Interpretation Reference Range Specimen Type Comment Mar 08, 2025 12:00 PM [facility] PROTHROMBIN GENE ANALYSIS FACTOR II MUT BLOOD Specimen Type: BLOOD Comment: RESULT: [id number] VARIANT NOT DETECTED INTERPRETATION: This individual is negative (normal) for the [id number] variant in the Prothrombin/Fact or II gene. Increased risk of thrombophilia can be caused by a variety of genetic and non-genetic factors not screened for by this assay. Ordering Provider: STU FABIAN Report Released Date/Time: Mar 01, 2025 09:36 AM Reporting Lab: [address] [address] Performing Lab: [address] PROTHROMBIN GENE ANALYSIS FACTOR II MUT NEG Mar 08, 2025 12:00 PM [facility] PROTEIN S ACTIVITY(STL-MA-PB) PLASMA Specimen Type: PLASMA Comment: Test Performed by [facility], [facility], [address] [place] [address] Juan Hassan M.D., Ph.D., Director of Laboratories , [facility] [id number] Ordering Provider: STU FABIAN Report Released Date/Time: Mar 01, 2025 09:36 AM Reporting Lab: [address] [address] Performing Lab: [address] PROTEIN S ACTIVITY(STL-MA-PB) 94 70 -150 Mar 08, 2025 12:00 PM [facility] PROTEIN URINE URINE Specimen Type: URINE No comment entered. Ordering Provider: STU FABIAN Report Released Date/Time: Mar 01, 2025 09:36 AM Reporting Lab: [address] [address] Performing Lab: [address] [address] PROTEIN URINE 20.5 mg/dL Mar 08, 2025 12:00 PM [facility] CREATININE URINE/OTHERS URINE Specimen Type: URINE No comment entered. Ordering Provider: STU FABIAN Report Released Date/Time: Mar 01, 2025 09:36 AM Reporting Lab: [address] [address] Performing Lab: [address] [address] CREATININE URINE/OTHERS 249.6 mg/dL H 63-1 66 Mar 08, 2025 12:00 PM [facility] APTT PLASMA Specimen Type: PLASM A No comment entered. Ordering Provider: STU FABIAN Report Released Date/Time: Mar 01, 2025 09:36 AM Reporting Lab: [address] [address] Performing Lab: [address] [address] APTT 31.4 s 26.7-39.9 Mar 08, 2025 12:00 PM [facility] PT/INR NEW (L-MA) PLASMA Specimen Type: PLAS MA No comment entered. Ordering Provider: STU FABIAN Report Released Date/Time: Mar 01, 2025 09:36 AM Reporting Lab: [address] [address] Performing Lab: [address] [address] PROTIME 15.6 s H 9.4-12.5 INR VALUE 1.4 {INR} Mar 08, 2025 12:00 PM [facility] MICRAL/CREAT PROFILE (STL) URINE Specimen Typ e: URINE No comment entered. Ordering Provider: STU FABIAN Report Released Date/Time: Mar 01, 2025 09:36 AM Reporting Lab: [address] [address] Performing Lab: [address] [address] URINE ALBUMIN (PB-STL) 33.1 mg/L uACR (STL) 13 mg/g 0-29 CREATININE URINE/OTHERS 251.3 mg/dL H 63-1 66 Mar 08, 2025 12:00 PM [facility] GLUCOSE PLASMA Specimen Type: PLASM A No comment entered. Ordering Provider: STU FABIAN Report Released Date/Time: Mar 01, 2025 09:36 AM Reporting Lab: [facility] [address] [place] [address] Performing Lab: [facility] [address] [place] [address] [facility] GLUCOSE 134 mg/dL H 72-99 Mar 08, 2025 12:00 PM [facility] TSH (MA-PB) SERUM Specimen Type: SERUM No comment entered. Ordering Provider: STU FABIAN Report Released Date/Time: Mar 01, 2025 09:36 AM Reporting Lab: [address] [address] Performing Lab: [address] [address] TSH 0.702 u[IU]/mL 0.47-5 Mar 08, 2025 12:00 PM [facility] B12 SERUM Specimen Type: SERUM No comment entered. Ordering Provider: STU FABIAN Report Released Date/Time: Mar 01, 2025 09:36 AM Reporting Lab: [facility] [address] [place] [address] Performing Lab: [address] [address] B12 592 pg/mL 213-816 Mar 08, 2025 12:00 PM [facility] CMP PLASMA Specimen Type: PLASM A Comment: No hemolysis noted. Ordering Provider: STU FABIAN Report Released Date/Time: Mar 01, 2025 09:36 AM Reporting Lab: [address] [address] Performing Lab: [address] [address] CREATININE 0.78 mg/dL 0.7-1.3 UREA NITROGEN 15.6 [...] 90.2 >60 Mar 08, 2025 12:00 PM [facility] FOLATE (STL-MA) SERUM Specimen Type: SERUM No comment entered. Ordering Provider: STU FABIAN Report Released Date/Time: Mar 01, 2025 09:36 AM Reporting Lab: [address] [address] Performing Lab: [address] [address] FOLATE (STL-MA) 4.8 ng/mL L 7-20 Mar 08, 2025 12:00 PM [facility] VITAMIN D, 25-HYDROXY SERUM Specimen Type: SE RUM No comment entered. Ordering Provider: STU FABIAN Report Released Date/Time: Mar 01, 2025 09:36 AM Reporting Lab: [address] [address] Performing Lab: [address] [address] VITAMIN D, 25-HYDROXY 28.3 ng/mL L 30-96 Mar 08, 2025 12:00 PM [facility] HGA1C BLOOD Specimen Type: BLOOD No comment entered. Ordering Provider: STU FABIAN Report Released Date/Time: Mar 01, 2025 09:36 AM Reporting Lab: [address] [address] Performing Lab: [address] [address] HGA1C 6.6 Mar 08, 2025 12:00 PM [facility] LIPID PANEL (STL) PLASMA Specimen Type: PLASM A Comment: No hemolysis noted. Ordering Provider: STU FABIAN Report Released Date/Time: Mar 01, 2025 09:36 AM Reporting Lab: [address] [address] Performing Lab: [address] [address] CHOLESTEROL 136 mg/dL 0-200 TRIGLYCERIDE 138 mg/dL 0-150 CALCULATED LDL 70 mg/dL HDL(New) 38 mg/dL L >40 Mar 08, 2025 12:00 PM [facility] CBC BLOOD Specimen Type: BLOOD Comment: ~THIS TEST SHOULD ONLY BE USED BY [facility] Ordering Provider: STU FABIAN Report Released Date/Time: Mar 01, 2025 09:36 AM Reporting Lab: [address] [address] Performing Lab: [address] [address] WBC 3.3 10*3/uL L 3.6-11.2 RBC 3.50 [...] SCRNPERF YES Mar 08, 2025 12:00 PM [facility] FERRITIN SERUM Specimen Type: SERUM No comment entered. Ordering Provider: STU FABIAN Report Released Date/Time: Mar 01, 2025 09:36 AM Reporting Lab: [address] [address] Performing Lab: [address] [address] FERRITIN 61.70 ng/mL 22-275 Mar 08, 2025 12:00 PM [facility] IRON/TIBC PROFILE SERUM Specimen Type: SERUM No comment entered. Ordering Provider: STU FABIAN Report Released Date/Time: Mar 01, 2025 09:36 AM Reporting Lab: [address] [address] Performing Lab: [address] [address] TIBC 190 ug/dL L 250-450 TRANSFERRIN 152 mg/dL L 163-344 IRON SATURATION 25 20-50 IRON 47 ug/dL L 65-175 Mar 08, 2025 12:00 PM [facility] CYSTATIN C EGFR PANELS (ST-PB-ID) PLASMA Spec imen Type: PLASMA Comment: Choice of which of the reported eGFR values to use depends on the clinical situation. For example, for patients with severe muscle wasting or reduced muscle mass, eGFR calculated using the 2012 cystatin equation may be preferred. Ordering Provider: STU FABIAN Report Released Date/Time: Mar 01, 2025 09:36 AM Reporting Lab: [address] [address] Performing Lab: [address] [address] CYSTATIN C 1.66 mg/L 0.57-1.80 CKD-EPI CYSTATIN C (2011) 36.6 >60 CKD-EPI CREAT-CYSC (2020) 57.4 >60 CREATININE (STL) 0.76 mg/dL 0.7-1.3 Mar 08, 2025 12:00 PM [facility] URINALYSIS W/O REFLEX CX (STL-PB) URINE Speci men Type: URINE No comment entered. Ordering Provider: STU FABIAN Report Released Date/Time: Mar 01, 2025 09:36 AM Reporting Lab: [address] [address] Performing Lab: [address] [address] URINE COLOR Yellow Yellow U.BILIRUBIN Negative mg/dL [...] 1.038 H Mar 08, 2025 12:00 PM [facility] RETICULOCYTE PANEL BLOOD Specimen Type: BLOOD Comment: ~THIS TEST SHOULD ONLY BE USED BY HB Ordering Provider: STU FABIAN Report Released Date/Time: Mar 01, 2025 09:36 AM Reporting Lab: [address] [address] Performing Lab: [address] [address] RETIC RATIO 1.65 0.50-2.30 IRF 18.2 H 2.3-13.4 RETICULOCYTE HEMOGLOBIN EQUIVALENT 35.0 pg 28.2-36.6 RETIC COUNT,ABS 0.058 10*6/uL 0.022-0.10 1 Feb 10, 2025 12:51 PM [facility] GLUCOSE,BLOOD-poct (STL) BLOOD Specimen Type: BLOOD Comment: Test Performed by: [id number] Meter #: [id number] Ordering Provider: ANN BEASLEY Report Released Date/Time: Feb 10, 2025 12:53 PM Reporting Lab: [place] [address] [address] [facility] [address] Performing Lab: [place] [address] [facility] [address] GLUCOSE,BLOOD-poct (STL) 199 mg/dL H 72-99 Feb 10, 2025 05:13 AM [facility] GLUCOSE,BLOOD-poct (STL) BLOOD Specimen Type: BLOOD Comment: Test Performed by: [id number] Meter #: [id number] Ordering Provider: ANN BEASLEY Report Released Date/Time: Feb 10, 2025 05:37 AM Reporting Lab: [place] [address] [address] [facility] [address] Performing Lab: [place] [address] [facility] [address] GLUCOSE,BLOOD-poct (STL) 95 mg/dL 72-99 Feb 09, 2025 11:20 PM [facility] APTT PLASMA Specimen Type: PLASM A Comment: ~HEP BOLUS - CALL RESULTS Ordering Provider: JESSE BURGOS Report Released Date/Time: Feb 09, 2025 04:35 PM Reporting Lab: [place] [address] [facility] [address] Performing Lab: [place] [address] [facility] [address] APTT 29.9 s 26.7-39.9 Feb 09, 2025 08:35 PM [facility] GLUCOSE,BLOOD-poct (STL) BLOOD Specimen Type: BLOOD Comment: Test Performed by: [id number] Meter #: [id number] Ordering Provider: ANN BEASLEY Report Released Date/Time: Feb 09, 2025 08:41 PM Reporting Lab: [facility] [address] [facility] [address] Performing Lab: [facility] [address] [place] [address] GLUCOSE,BLOOD-poct (STL) 159 mg/dL H 72-99 Feb 09, 2025 05:22 PM [facility] MRSA SURVL NARES DNA NARES Specimen [...] Feb 09, 2025 04:31 PM Reporting Lab: [place] [address] [facility] [address] Performing Lab: [address] [address] MRSA SURVL NARES DNA Negative Negative Feb 09, 2025 05:00 PM [facility] APTT PLASMA Specimen Type: PLASM A Comment: ~HEP BOLUS-CALL RESULTS Ordering Provider: JESSE BURGOS Report Released Date/Time: Feb 09, 2025 04:35 PM Reporting Lab: [place] [address] [facility] [address] Performing Lab: [address] [address] APTT 28.0 s 26.7-39.9 Feb 09, 2025 04:59 PM [facility] GLUCOSE,BLOOD-poct (STL) BLOOD Specimen Type: BLOOD Comment: Test Performed by: [id number] Meter #: [id number] Ordering Provider: ANN BEASLEY Report Released Date/Time: Feb 09, 2025 05:02 PM Reporting Lab: [place] [address] [facility] [address] Performing Lab: [address] [address] GLUCOSE,BLOOD-poct (STL) 162 mg/dL H 72-99 Feb 09, 2025 01:55 PM [facility] LACTIC ACID (L-PB) PLASMA Specimen Type: TAMARA SMA No comment entered. Ordering Provider: CHINO LEONG I Report Released Date/Time: Feb 09, 2025 01:44 PM Reporting Lab: [address] [address] Performing Lab: [address] [address] LACTIC ACID (STL-PB) 2.9 mmol/L H 0.5-2.0 Feb 09, 2025 11:52 AM [facility] BLOOD GAS PANEL ABG ([facility]) VENOUS BLOOD Specimen Type : VENOUS BLOOD Comment: Test Performed by: [id number] Meter #: [id number] Ordering Provider: ANNIE ARGUETA Report Released Date/Time: Feb 09, 2025 11:53 AM Reporting Lab: [address] [address] Performing Lab: [address] [address] GEM PH 7.40 7.31-7.41 GEM PCO2 36 [...] TEMP 37.0 Feb 09, 2025 11:51 AM [facility] BRAIN NATRIURETIC PEPTIDE PLASMA Specimen Type : PLASMA No comment entered. Ordering Provider: CHINO LEONG I Report Released Date/Time: Feb 09, 2025 01:19 PM Reporting Lab: [address] [address] Performing Lab: [address] [address] BRAIN NATRIURETIC PEPTIDE 341.6 pg/mL H 0- 100 Feb 09, 2025 11:31 AM [facility] TROPONIN I (STL) PLASMA Specimen Type: PLASM A Comment: No hemolysis noted. Ordering Provider: KESHIA HUYNH Report Released Date/Time: Feb 09, 2025 11:30 AM Reporting Lab: [address] [address] Performing Lab: [address] [address] TROPONIN I (STL) 0.019 ng/mL 0-0.033 Feb 09, 2025 11:31 AM [facility] CBC BLOOD Specimen Type: BLOOD No comment entered. Ordering Provider: KESHIA HUYNH Report Released Date/Time: Feb 09, 2025 11:30 AM Reporting Lab: [address] [address] Performing Lab: [address] [address] WBC 5.6 10*3/uL 3.6-11.2 RBC 3.71 10*6/uL [...] 0.00-0. 20 Feb 09, 2025 11:31 AM [facility] COMPREHENSIVE METABOLIC PANEL PLASMA Specimen Type: PLASMA Comment: No hemolysis noted. Ordering Provider: KESHIA HUYNH Report Released Date/Time: Feb 09, 2025 11:30 AM Reporting Lab: [place] [id number] [facility] [address] Performing Lab: [address] [address] CREATININE 0.96 mg/dL 0.7-1.3 UREA NITROGEN 16.8 [...] 80.4 >60 Feb 09, 2025 11:20 AM [facility] GLUCOSE,BLOOD-poct (STL) BLOOD Specimen Type: BLOOD Comment: Test Performed by: [id number] Meter #: [id number] Ordering Provider: ANNIE ARGUETA Report Released Date/Time: Feb 09, 2025 11:22 AM Reporting Lab: [facility] [address] [facility] [address] Performing Lab: [facility] [address] [facility] [id number] GLUCOSE,BLOOD-poct (STL) 161 mg/dL H 72-99 Social History: Smoking Status (Most current) and Tobacco Use (All prior to encounter date) This section includes the most current, and the historical, smoking and tobacco- related health factors from the AL facility where the Encounter took place. Current Smoking Status This section includes the most current smoking, or tobacco-related health factor, from the AL facility where the Encounter took place. Date/Time Current Smoking Status Comment Facil ity Jun 05, 2023 01:00 PM AL-TOBACCO QUIT 15 YRS OR MORE [facility] Tobacco Use History This section includes a history of the smoking, or tobacco-related health factors, that were collected on or before the date of the Encounter. The data comes from the AL facility where the Encounter took place. Date/Time Smoking Status/Tobacco Use Comment F acility Jun 05, 2023 01:00 PM AL-TOBACCO QUIT 15 YRS OR MORE [facility] Radiology Reports: +/- 30 days of [...] the Encounter. The data comes from all AL treatment facilities. Date/Time Radiology Report Provider Source Feb 10, 2025 11:29 AM US EXTREMITY VEINS BILAT (DVT): JOSE MARIA WHITE [id number] -1945 M Exm Date: FEB 10, 2025@11:29 Req Phys: JESSE BURGOS Pat Loc: 6N S OE-JESSICA/02-10-2025@13:14 Img Loc: JESSICA-ULTRASOUND JESSICA Service: [id number] SERVICE [facility] [address] [place] [address] (Case [id number] COMPLETE) US EXTREMITY VEINS BILAT (DVT) (US Detailed) CPT:74560 Reason for Study: dx with PE Clinical History: Report Status: Verified Date Reported: FEB 10, 2025 Date Verified: FEB 10, 2025 Wagon Driver E-Sig:/ES/David Pastrana MD Report: CASE #: [id number] DATE:02/10/2025 12:51 PM CLINICAL HISTORY:dx with PE [...] verification. Dictated by Chastity Mantilla M.D. (Diagnostic Pharmacist). I, David Pastrana, have reviewed the images and report and concur with these findings. Primary Interpreting Staff: David Pastrana MD, Radiologist (Wagon Driver) Primary Interpreting Resident: Chastity Mantilla MD, Resident Physician /DAVID WILCOX [facility] Feb 09, 2025 03:[address] PE CHEST W/3D: JOSE MARIA WHITE [id number] -1945 M Exm Date: FEB 09, 2025@15:10 Req Phys: CHINO LEONG Loc: 6N S OE-JESSICA/02-09-2025@16:39 Img Loc: JESSICA-CT IMAGING JESSICA Service: Unknown [address] [address] (Case [id number] COMPLETE) CT THORAX W/CONT (PE) (CT Detailed) CPT:27093 Contrast Media : unspecified contrast media Reason for Study: syncope, abormanl CXR Clinical History: Responsible Attending: Mariam Attending Contact Number: [phone] Resident Contact Number: syncope, abormanl CXR Allergies listed in CPRS chart: PENICILLIN, TETRACYCLINE, NEOSPORIN, CELEBREX, SIMVASTATIN Creatinine: CREATININE 0.96 mg/dL 02/09/2025 11:31 /eGFR: STL EGFR (within one year). CREATININE 0.96 mg/dL (02/09/25 11:31) Wt: 273.5 lb [124.06 kg] (09/10/2023 13:16) History of: Renal failure, chronic or acute renal disease: NO Report Status: Verified Date Reported: FEB 09, 2025 Date Verified: FEB 09, 2025 Wagon Driver E-Sig:/ES/REA MARLEY Report: CASE #: [id number] DATE:02/09/2025 4:08 PM CLINICAL HISTORY:syncope, abormanl CXR [...] confirmation. Dictated by Jamal Chiu M.D. (Diagnostic Pharmacist). I, Rea Marley, have reviewed the images and report and concur with these findings. Primary Interpreting Staff: REA MARLEY, Staff Physician (Wagon Driver) Primary Interpreting Resident: JAMAL CHIU, Resident Physician /REA HOPE [facility] Feb 09, 2025 01:[address] HEAD W/O CONT: CHRISTOPHERJOSE MARIA KALANISancho [id number] -1945 M Exm Date: FEB 09, 2025@13:01 Req Phys: CHINO LEONG Loc: JESSICA-EMERGENCY DEPT 2ND SHIFT (R Img Loc: JESSICA-CT IMAGING JESSICA Service: [address] [address] (Case [id number] COMPLETE) CT HEAD W/O CONT (CT Detailed) CPT:99165 Reason for Study: syncopal episode Clinical History: Responsible Attending: Mariam Attending Contact Number: [phone] Resident Contact Number: syncopal episode Allergies listed in CPRS chart: PENICILLIN, TETRACYCLINE, NEOSPORIN, CELEBREX, SIMVASTATIN Creatinine: CREATININE 0.90 mg/dL 08/07/2024 14:00 /eGFR: STL EGFR (within one year). CREATININE 0.90 mg/dL (08/07/24 14:00) Wt: 273.5 lb [124.06 kg] (09/10/2023 13:16) History of: Renal failure, chronic or acute renal disease: NO Report Status: Verified Date Reported: FEB 09, 2025 Date Verified: FEB 09, 2025 Wagon Driver E-Sig:/ES/REA MARLEY Report: CASE #: [id number] DATE:02/09/2025 1:35 PM CLINICAL HISTORY:syncopal episode TECHNIQUE: [...] process. Dictated by Jamal Chiu M.D. (Diagnostic Pharmacist). I, Rea Marley, have reviewed the images and report and concur with these findings. Primary Interpreting Staff: REA MARLEY, Staff Physician (Wagon Driver) Primary Interpreting Resident: JAMAL CHIU, Resident Physician /REA HOPE [facility] Feb 09, 2025 11:32 AM CHEST PORTABLE: JOSE MARIA WHITE [id number] -1945 M Exm Date: FEB 09, 2025@11:32 Req Phys: KESHIA HUYNH Loc: JESSICA-EMERGENCY DEPT 2ND SHIFT (R Img Loc: -MAIN RADIOLOGY SUITE Service: [address] [address] (Case [id number] COMPLETE) CHEST PORTABLE (RAD Detailed) CPT:90467 Proc Modifiers : Portable Reason for Study: hypotension Clinical History: Report Status: Verified Date Reported: FEB 09, 2025 Date Verified: FEB 09, 2025 Wagon Driver E-Sig:/ES/David Pastrana MD Report: CASE [id number]. AP portable view chest. COMPARISON: FINDINGS: Bilateral [...] effusion. Dictated by Jamal Chiu M.D. (Diagnostic Pharmacist). I, David Pastrana, have reviewed the images and report and concur with these findings. Primary Interpreting Staff: David Pastrana MD, Radiologist (Wagon Driver) Primary Interpreting Resident: Resident HAL Physician /DAVID WADE [facility] Pathology Reports: +/- 30 days of [...] the Encounter. The data comes from all AL treatment facilities. Date/Time Pathology Report Provider Source Feb 09, 2025 12:20 PM LR MICROBIOLOGY RE PORT: Accession [UID]: [id number] [[id number]] Received: Feb 09, 2025@12:29 Collection sample: B D BLD. BOTTLE Collection date: Feb 09, 2025 12:20 Site/Specimen: BLOOD Provider: ANNIE ARGUETA Test(s) ordered: BLOOD CULT (SET 1)............ completed: Feb 15, 2025 12:44 * BACTERIOLOGY FINAL REPORT => Feb 15, 2025 12:46 TECH CODE: [id number] Bacteriology Remark(s): 02/10/25 CMG CULTURE IS NEGATIVE TO DATE, ALL POSITIVES ARE ROUTINELY CALLED. Culture shows NO GROWTH IN 6 DAYS. 02/15/25 CED =--=--=--=--=--=--=--=--=--=- -=--=--=--=--=--=--=--=--=--= --=--=--=--=--=--=-- Performing Laboratory: Bacteriology Report Performed By: [facility] CLIA# [id number] [address] [place] [address] Bact Report Remark Performed By: [address] CLIA# [id number] [address] [place] [address] [facility] Feb 09, 2025 12:15 PM LR MICROBIOLOGY RE PORT: Accession [UID]: [id number] [[id number]] Received: Feb 09, 2025@12:29 Collection sample: B D BLD. BOTTLE (SET 2)Collection date: Feb 09, 2025 12:15 Site/Specimen: BLOOD Provider: ANNIE ARGUETA T Test(s) ordered: BLOOD CULT (SET 2)............ completed: Feb 15, 2025 12:45 * BACTERIOLOGY FINAL REPORT => Feb 15, 2025 12:46 TECH CODE: [id number] Bacteriology Remark(s): 02/10/25 CMG CULTURE IS NEGATIVE TO DATE, ALL POSITIVES ARE ROUTINELY CALLED. Culture shows NO GROWTH IN 6 DAYS. 02/15/25 CED =--=--=--=--=--=--=--=--=--=- -=--=--=--=--=--=--=--=--=--= --=--=--=--=--=--=-- Performing Laboratory: Bacteriology Report Performed By: [facility] [address] [place], [place] [address]IA# [id number] [address] [facility] [address] [place] [address] Bact Report Remark Performed By: [facility] [address] [facility] CLIA# [id number] [address] [facility] [address] [place] [address] [facility] Encounter Notes: All associated encounter notes This section contains the clinical notes associated to the Encounter. Date/Time Encounter Note(s) Provider Source Feb 22, 2025 10:01 AM HB NOTE: LOCAL TITLE: [facility] EMERGENCY PLANNING ASSESSMENT STANDARD TITLE: [facility] NOTE DATE OF NOTE: FEB 22, 2025@10:01 ENTRY DATE: FEB 22, 2025@13:41:16 AUTHOR: AMOS BOWERS EXP COSIGNER: URGENCY: STATUS: COMPLETED Home Based Primary Care Emergency Planning Assessment Note Status of Assessment: New admission Resides: At home Contact Information: Emergency Contact Local Name: CON - Patient Contacts Patient Phone Numbers: Cell: No data available Home: Work: Emergency Contact: Name: TATIANNA WHITE Relationship: DAUGHTER Secondary Emergency Contact: Name: No data available Relationship: No data available Phone: No data available Secondary Next of Kin Contact Name: No data available Relationship: No data available Phone: No data available Emergency Contact Out of State Name: Emergency Contact Out of State Phone #: Wilbur Risk: Medium Factors Affecting Emergency Evacuation: Transportation issues is ambulatory with assistive device lives alone In the home the has: Adequate cooling Adequate heating Critical Medical Equipment Dependent on Electrical Power: None Safety Equipment: Smoke detector Fire extinguisher The safety equipment items have been tested and are functional Additional Details: per apt complex; per vet Education Provided: Discussed emergency plan to include method of evacuation & meeting place; Family/Friends/Neighbors Emergency Kit: 1 week supply of Food/Water/Medication/Firs t Aid Kit/Flashlight Verbalizes understanding /cas/ AMOS BOWERS PHYSICAL THERAPIST Signed: 02/22/2025 13:43 AMOS BOWERS [facility] Feb 22, 2025 10:01 AM PHYSICAL THERAPY H [facility] INITIAL EVALUATION NOTE: LOCAL TITLE: [facility] PT HOME EVALUATION STL STANDARD TITLE: PHYSICAL THERAPY HOME HEALTH INITIAL EVALUATION DATE OF NOTE: FEB 22, 2025@10:01 ENTRY DATE: FEB 22, 2025@13:03:58 AUTHOR: AMOS BOWERS COSIGNER: URGENCY: STATUS: COMPLETED [facility] THERAPY HOME EVALUATION NOTE -Initial DATE: 02/22/25 Identifiers used prior to beginning of this visit: Name, address, , SS#, facial recognition Time spent with Vet: 91 min. DX relevant to therapy: Diabetes Mellitus Type 2 Diabetic neuropathy HTN, Lumbar radiculopathy, GERD, Anxiety, PTSD SUBJECTIVE: Vet stated that he was given a new med for his depression, which he says he does nto have; he stated he jsut is not happy and this is different from being depressed. States the new med gives him diarrhea. fo 56 yrs and his daughter who moved him to [place], left him and went back to [facility]. States she had a nervous breakdown and is in the hosptial. Vet stated that she told the vet that she is behind on paying his bills because her boyfriend took the [employer] money. Vet now getting collectins notices Vet's personal goal:To be able to stay in his apt with assist Pain:Chronic LBP; Cionstant at all times, but severity will go from 7-8 with sitting and standing to 10+/10 with amb Falls w/in previous 90 days: Yes, per Vet himself; States the EMS personel know him well. OBJECTIVE: seen this date for home eval to assess home safety and equipment needs. 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 TECHNICIAN service T/Th: 4 hrs a day -Type of dwellin bedroom apt -Entry: *Primary *Front: 0 steps into home in good -Exterior of home: steps need repair, pathway is even, loose rail, obscured due to shrubbery overgrowth -Stairs in house:no -Jg Kitchen: [place] Living room: [facility] Bedroom: [facility] Bathroom: [place] -Rugs: no -Condition: Generally, clean, neat, uncluttered HOME SAFETY: -Is cognitively and physically able to independently and safely evacuate home in case of emergency: yes, with extra time If no, Barriers to safe evacuation (including if under duress): -Access to telephone: yes -Medical Alert: None; PT suggested; vet decllined at this time -Traffic areas free from electrical/telephone cords /oxygen tubing: yes -Exits and passageways kept clear: yes -House generally clean: Yes Clutter free: yes -Adequate lighting: yes -Smoke detectors: yes -Fire extinguishers: yes -Adequate refrigeration: yes -Electrical safety issues: no -Running water: yes -Heat: yes -Air conditioning/ventilation: yes -Functional toilet: yes -Animals in the home: no -Guns in home: no BATHROOM: Primary on main floor Bathing: tub/shower combo with curtain,shower chair, tub bench, HH shower, grab bars. Toileting: Standard Nightlight: no BEDROOM: Main floor, clean Jg: [place]wood Rug: none Bed: NA; vets furniture along with his beds, are in storage; Vet sleeps in his recliner SENSORY AND COMMUNICATION: -Cognition: A&Ox3. Pleasant and cooperative. Followed directions well. Impaired safety. Memory intact. Dressed appropriately. -Communication: Normal -Vision: Impaired; glasses for reading -Hearing: Normal ROM/STRENGTH: -UE Function: RThand dominant UE AROM: Grossly WFL throughout YANA UE Strength: Grossly 3+/5 throughout YANA except:L sh Flex: L: RTC tear per vet Recruiter Account Manager: grossly WFL Coordination: Grossly WFL YANA -LE Function: LE AROM: Grossly WFL throughout YANA LE Strength: Grossly 3/5 throughout YANA Coordination: Grossly WFL YANA TREATMENT: Educated in HEP for LE/UE AROM (including seated marching, knee flex/ext, ankle flex/ext, shoulder flexion, elbow flex/ext, fingers). Encouraged Vet to complete HEP regularly and maintain activity level. Wilbur verbalized/demonstrated understanding. MOBILITY: -Gait: VC-Modified (I) with two walking canes throughout the apt. If pain is severe, vet will use the rollator to get to his food in the kitchen -Gait Deviations: Shuffling, decreased foot clearance, short steps, narrow base of support -Transfers: Mod Independent -Home Mobility: Mod Independent -Community Mobility: Mod Independent with the use of rollator, but vet should be SBA-CGA -Stairs: NA -Footwear at time of visit: Socks Educated and/or CG in need to wear appropriate non-skid footwear. SKIN INTEGRITY/POSITIONING: Appears intact, but vet does have scabs on BLE on the paul area Instructed and/or CG in importance of proper positioning and need for frequent repositioning. FALL RISK ASSESSMENTS: [facility] Fall History: -TINETTI PERFORMANCE BASED ASSESSMENT: BALANCE TEST 1. Sitting balance: -Leans or slides in chair..................... ..=0 [] -Steady, safe...................... .................=1 [x] 2. Arises: -Unable without help...................... ........=0 [] -Able, uses arms to help...................... ....=1 [x] -Able without using arms...................... ..=2 [] 3. -Attempts to Arise: -Unable without help...................... ..................=0 [] -Able, but requires more than 1 attempt..........=1 [] -Able to rise, 1 attempt................... .................=2 [x] 4. Immediate Standing Balance (first 5 seconds): -Unsteady (swaggers, moves feet, trunk sway)....=0 [x] -Steady but uses walker or other support............=1 [] -Steady without walker or other support.............=2 [] 5. Standing Balance: -Unsteady................. .......................... .................=0 [x] -Steady but wide stance (medial heels wider than 4 inches apart)and uses cane or other support?.=1 [] -Narrow stance without support................... .......=2 [] 6. Nudged (subject at maximum position with feet as close as possible, examiner pushes lightly on subject's sternum with palm of hand 3 times): -Begins to fall...................... .......................... .......=0 [x] -Staggers, grabs, catches self...................... ..........=1 [] -Steady................... .......................... ...................=2 [] 7. Eyes Closed (at maximum position of item 6): -Unsteady................. .......................... .............=0 [x] -Steady................... .......................... ...............=1 [] 8. Turning 360 Degrees : -Discontinuous steps..................... ..................=0 [] -Continuous steps..................... ......................=1 [x] -Unsteady (grabs, staggers)................. ............=0 [] -Steady................... .......................... ..............=1 [] 9. Sitting Down -Unsafe (misjudged distance, falls into chair)..=0 [] -Uses arms or not a smooth motion................=1 [x] -Safe, smooth motion.................... .................=2 [] BALANCE SCORE = 6 /16 TINETTI PERFORMANCE-BASED ASSESSMENT - GAIT TEST: 10. Initiation of Gait -Any hesitancy or multiple attempts to start?...=0 [x] -No hesitancy................. .......................... .........=1 [] 11. Step Length and Height: -Right swing foot: --Fails to pass left stance foot with step???....=0 [] --Passes left stance foot...................... ..............=1 [x] --Fails to completely clear floor with step??.?.=0 [x] --Completely clears floor..................... ..............=1 [] -Left swing foot: --Fails to pass right stance foot with step???..=0 [] --Passes right stance foot...................... ............=1 [x] --Fails to completely clear floor with step???.=0 [x] --Completely clears floor..................... .............=1 [] 12. Step Symmetry: -Right and left step length not equal.................=0 [] -Right and left step length equal..................... ..=1 [x] 13. Step Continuity: -Stopping or discontinuity between steps.........=0 [] -Steps appear continuous................ .................=1 [] 14. Path (Observe excursion to right or left over 10 feet): -Marked deviation................. .......................... ..=0 [] -Mild/moderate deviation or uses walking aid...=1 [x] -Straight without walking aid....................... ......=2 [] 15. Trunk: -Marked sway or uses walking aid......................= 0 [x] -No sway but flexion of knees or back or spreads arms out while walking................... .....=1 [] -No sway, no flexion, no use of arms, and no use of walking aid....................... ......................=2 [] 16. Walking Stance: -Heels apart..................... .......................... ........=0 [x] -Heels almost touching while walking................=1 [] GAIT SCORE = 4 /12 TOTAL SCORE (Balance +Gait) = 10 /28 INTERPRETATION OF TINETTI ASSESSMENT: Less than 19 = high fall risk. 19-24 = medium fall risk. 25-28 = low fall risk. [facility] 10 FALL RISK ASSESSMENT TOOL: Age 65+: 1 = Diagnosis (3 or more co-existing): 1 = Yes Prior history of falls within 3 months: 1 = Yes Incontinence: 1 = Yes Visual impairment: 1 = Yes Impaired functional mobility: 1 = Yes Environmental hazards: 0 = No Poly Pharmacy (4 or more prescriptions): 1 = Yes Pain affecting level of function: 1 = Yes Cognitive impairment: 0 = No Total Score: A score of 4 or more is considered at risk for falling -RAHMAN FALL RISK ASSESSMENT History of falling (within 3 months): 25 = Yes Secondary diagnosis contributing to fallin = Yes Ambulatory aid used during gait: 15 = cane/walker IV therapy: 0 = No Gait/transfer characteristics: 20 = impaired gait/transfer Mental status: 0 = Oriented to own ability Total Score: 75 Risk Assessment Score 0-24 = Low Fall Risk 25-44 = Moderate Fall Risk 45 and higher = High Fall risk -Fall Risk Precautions/Interventions include: encourage non-slip footwear, nightlight and/or bathroom light left on, environmental hazards reduced as much as possible, individualize equipment to patient needs, exercise program, encourage to wear medical alert device or keep phone within reach, orthostatic precautions, patient to use assistive device/patient to be accompanied by family/caregiver when transferring/ambulating, education on home safety/fall preventiontechniques, bathroom safety. FUNCTIONAL ABILITY: Eating: I Grooming: I Bathing: Mod I with shower chair, but should be SBA-CGA UE Dressing; Mod I sitting LE Dressing: Mod I sitting Toileting: Mod I Transfers Chair: Mod I , but should be Toilet: Min A Tub, Shower: Mod I, but should be SBA -CGA IADLS/HOME MGMT SKILLS: Meal Prep: Dep Laundry: Dep Transportation: Dep Medication Mgmt: Mod-Independent TREATMENT: None, Gait/transfer training, Exercise, Balance, ROM/strength EDUCATION AND RECOMMENDATIONS: x -Home safety and fall prevention techniques x -Use of equipment Instructed vet to use both walking canes in the house if he willnot use the rollator x -Correct use of cane/walker; PT suggested he use cane and opposite foot technique -Advised to decrease clutter to reduce the risk of tripping or slipping x -Bathroom safety; PT suggested a raise toilet seat or 3 in 1 cmmode; Vet declined at this viist -Recommend removing or securing rugs x -HEP -Energy conservation/work simplification techniques x -Pressure reduction/Proper positioning; PT suggested that vet try to walk a little every 1-2 hours or stand for 30 seconds if he can to decr pressure on buttock since he sits in the recliner most of the time ASSESSMENT: 79 yo male vet who was reffered to [facility] Diabetes Mellitus Type 2 Diabetic neuropathy HTN, Lumbar radiculopathy, GERD, Anxiety, PTSD.Wilbur is able to complete most ADLs and HH functional mobility modified (I), however, vet should be at SBA-CGA for afety, but vet lives alone. Vet does have SENIOR MAINTENANCE TECHNICIAN T/TH for 4 hrs a day. Wilbur is dep with IADLs and and should be SBA- CGA for functional community mobility; Wilbur is at high risk for falls per his Tinetti and Rahman Fall Risk Assessment scores. Wilbur was and family were educated in home safety and fall prevention techniques. Wilbur was educated in DME/AE available and appropriate equipment will be ordered.He/ verbalized and demonstrated understanding of equipment use and education. STG met at this visit -Wilbur able to verbalize/demonstrate appropriate use of DME/AE needed to increase independence and safety at home. - to ambulate using assist device to reduce risk of instability and falls. -Therapist to provide education, training, instruction regarding the use of ambulatory device, bathroom equipment. Barriers to goals: Vet live alone PLAN: No scheduled Physical Therapy is indicated at this time. The willbe seen by [facility] therapist annually or as needed for issues related to debility, change in function, DME needs, or safety issues. Instructed Vet and family to contact therapy if questions/concerns arise. Equipment to be ordered: None at this time Treatment Plan: Gait, Functional Transfers, B/IADLs, ROM/Strengthening, Home Management, DME/AE assessment and training VISIT TIME: 91 mins TRAVEL TIME:46 mins /cas/ AMOS BOWERS PHYSICAL THERAPIST Signed: 02/22/2025 13:40 Receipt Acknowledged By: 02/23/2025 09:21 /es/ Tatianna Dill MSG,RD,CSG,LD Gerontological Dietitian 02/23/2025 07:34 /es/ HERO SHAFFER REGISTERED NURSE 02/22/2025 16:07 /es/ STU FABIAN MD, MS 02/24/2025 09:24 /es/ PATRICE OATES [facility] Clinical Nursery School Teacher 02/23/2025 10:23 /es/ CÉSAR DORSEY [employer]er, [facility] AMOS BOWERS [facility]
--- OUTSIDE RECORDS SUMMARY | 2025-02-22 06:39 | XMS_ITS | Encounter Summary ---
Author Name Department of [facility] ([place]) Organization [facility] ([place]) Address [address] [place] [address] Care Team Providers Care Log Cutter Name Role Phone GRACE QUINN Primary Care [...] Medina's Name Patient's Relationship to Policy Medina IRA [facility] MEDICARE SUPPLEMEN SHEILA PLANF Mar 25, 2016 PLAN [id number] ISMAELSANARAJI JOSE MARIA PATIENT IRA [facility] MEDICARE SUPPLEMEN SHEILA PLANF Oct 23, 2010 PLANF [id number] CHRISTOPHER JOSE MARIA PATIENT [facility] MEDICARE SUPPLEMEN TAL PLANF Mar 25, 2016 PLANF [id number] JOSE MARIA WHITE [employer] [facility]PP MEDICARE SUPPLEMEN TAL PLANF Oct 23, 2010 PLANF [id number] [phone] JOSE MARIA WHITEP [facility] (WNR) MEDICARE ADVANTAGE [facility] (WNR) July 24, 2023 [id number] [id number] [phone] JOSE MRAIA WHITE PATIENT MEDICARE (WNR) MEDICARE (M) PART A July 24, 2003 PART A [id number] JOSE MARIA WHITE PATIENT MEDICARE (WNR) MEDICARE (M) PART B July 24, 2003 PART B [id number] JOSE MARIA WHITE PATIENT MEDICARE (WNR) MEDICARE (M) PART A July 24, 2003 PART A [id number] JOSE MARIA WHITE PATIENT [facility] (WNR) MEDICARE ADVANTAGE MCR (WNR) Mar 25, 2024 [id number] JOSE MARIA WHITE PATIENT [facility] (WNR) MEDICARE ADVANTAGE MCR (WNR) Mar 25, 2024 [id number] JOSE MARIA WHITE PATIENT Selected Encounter This section includes the information on record at [place] for the Encounter. Date/Time Encounter Type Encounter Description Reason Provider Source Feb 22, 2025 12:39 PM EXT ECG>7D<15D REV&INTERPJ AMB ECG MONITORING ICD-10-CM I48.0 Paroxysmal atrial fibrillation KEITH OBRIEN Vincent Encounter Template Text not used by [place] Assessments - Encounter Diagnoses This section includes the primary and secondary diagnoses documented for the Encounter. Date/Time Primary/Secondary Diagnosis Diagnosis Name Provider Source Feb 22, 2025 05:57 PM PRIMARY Paroxysmal atrial fibrillation KEITH OBRIEN [facility] Plan of Treatment: Future Appointments (+ 6 months) and Future Tests (+/- 45 days) The Plan of Treatment section includes future care activities for the patient from all [place] treatmentfacilities. This section includes future appointments and future orders which are active, pending or scheduled. Future Appointments This section includes appointments that were scheduled to occur 6 months from the date of the Encounter, up to a maximum of 20 appointments. The data comes from all [facility]. Appointment Date/Time Appointment Type Appointme nt Facility Name Mar 15, 2025 01:30 PM AMBULATORY - NONE [facility] Mar 31, 2025 10:00 AM AMBULATORY - MEDICINE [facility] Mar 31, 2025 12:00 PM AMBULATORY - SURGERY [facility] Mar 31, 2025 02:30 PM AMBULATORY - MEDICINE [facility] Apr 09, 2025 11:00 AM AMBULATORY - MEDICINE [facility] May 03, 2025 03:00 PM AMBULATORY - NONE [facility] Active, Pending, and Scheduled Orders This section includes a listing of several types of active, pending, and scheduled orders, including clinic medications orders, diagnostic test orders, procedure orders and consult orders; where the start date of the order is 45 days before the date of the Encounter or 45 days after the date of theEncounter. The data comes from all [facility]. 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 [facility] Cons Consultant Nurse's Choice [facility] Jan 15, 2025 12:00 AM Laboratory - Chemistry Order CELIAC DISEASE PANEL (STL-MRN) GOLD/RED SST SERUM SP ONCE [facility] Jan 15, 2025 12:00 AM Laboratory - Chemistry Order IRON/TIBC PROFILE GOLD/RED SST SERUM SP [facility] Jan 15, 2025 12:00 AM Laboratory - Chemistry Order ANTI-NUCLEAR ANTIBODY (STL-PB) GOLD/RED SST SERUM SP [facility] Jan 15, 2025 12:00 AM Laboratory - Chemistry Order ANTI-MITOCHONDRIAL AB (STL-PB) GOLD/RED SST SERUM SP [facility] Jan 15, 2025 12:00 AM Laboratory - Chemistry Order ACTIN (SMOOTHMUSCLE) ANTIBODY IGG GOLD/RED SST SERUM SP [facility] Jan 15, 2025 12:00 AM Laboratory - Chemistry Order IGG (STL) GOLD/RED SST SERUM SP [facility] Jan 15, 2025 12:00 AM Laboratory - Chemistry Order HEP HB S Ag (AUSRIA) (STL) GOLD/RED SST SERUM [facility] Jan 15, 2025 12:00 AM Laboratory - Chemistry Order HEPATITIS B SURFACE AB PNL GOLD/RED SST SERUM [facility] Jan 15, 2025 12:00 AM Laboratory - Chemistry Order HEPATITIS A IGG AB (STL) GOLD/RED SST SERUM [facility] Jan 15, 2025 12:00 AM Laboratory - Chemistry Order FERRITIN GOLD/RED SST SERUM [facility] Jan 15, 2025 12:00 AM Laboratory - Chemistry Order ALPHA-1 ANTITRYPSIN (STL-PB) GOLD/RED SST SERUM [facility] Jan 15, 2025 12:00 AM Laboratory - Chemistry Order HEP B CORE AB TOTAL. (STL) GOLD/RED SST SERUM [facility] Jan 15, 2025 12:00 AM Laboratory - Chemistry Order HEPATIC FUNTION PANEL (STL) GREEN LI/HEP BLD/PLAS PLASMA [facility] Jan 15, 2025 12:00 AM Laboratory - Chemistry Order HEP C Ab HCV Ab (STL) GOLD/RED SST SERUM [facility] Feb 09, 2025 12:18 PM Laboratory - Chemistry Order URINALYSIS W/ CX REFLEX (STL-PB) URN - CLEAN CATCH URINE WC ONCE [facility] Mar 01, 2025 12:00 AM Laboratory - Microbiology Order C&S URINE URINE HOLT WC ONCE [facility] Mar 01, 2025 12:00 AM Laboratory - Chemistry Order OCCULT BLOOD FIT X1 SCREEN STOOL FECES SP [facility] Mar 01, 2025 12:00 AM Laboratory - Chemistry Order ANTITHROMBIN III ACTIVITY BLUE,LIGHT(SODIUM CITRATE) PLASMA [facility] Mar 01, 2025 09:36 AM Consult Order EYE CLINIC OUTPT [place]ESS[place] Cons Consultant Nurse's Choice [facility] Mar 01, 2025 09:36 AM Consult Order VASCULAR LAB OUTPT [facility] Cons Consultant Nurse's Choice [facility] Mar 01, 2025 09:36 AM Consult Order CARDIOLOGY OUTPT [place] Cons Consultant Nurse's Choice [facility] Mar 08, 2025 12:00 PM Laboratory - Chemistry Order FACTOR V(LEIDEN)MUTATION ANALYSIS BLOOD [facility] Mar 09, 2025 12:00 AM Laboratory - Chemistry Order URINE DRUG SCREEN (STL) URINE YELLOW SP [facility] Mar 15, 2025 12:00 AM Laboratory - Chemistry Order LACTOFERRIN,STOOL (STL-MA-PB) STOOL FECES [facility] Mar 15, 2025 12:00 AM Laboratory - Chemistry Order HEP C Ab HCV Ab (STL) GOLD/RED SST SERUM [facility] Mar 15, 2025 12:00 AM Laboratory - Chemistry Order ANTI-NUCLEAR ANTIBODY (STL-PB) GOLD/RED SST SERUM [facility] Mar 15, 2025 12:00 AM Laboratory - Chemistry Order ACTIN (SMOOTHMUSCLE) ANTIBODY IGG GOLD/RED SST SERUM [facility] Mar 15, 2025 12:00 AM Laboratory - Chemistry Order IGG (STL) GOLD/RED SST SERUM [facility] Mar 15, 2025 12:00 AM Laboratory - Chemistry Order ANTI-MITOCHONDRIAL AB (STL-PB) GOLD/RED SST SERUM [facility] Mar 15, 2025 12:00 AM Laboratory - Chemistry Order HEP HB S Ag (AUSRIA) (STL) GOLD/RED SST SERUM [facility] Mar 15, 2025 12:00 AM Laboratory - Chemistry Order HEPATITIS B SURFACE AB PNL GOLD/RED SST SERUM [facility] Mar 15, 2025 12:00 AM Laboratory - Chemistry Order HEP B CORE AB TOTAL. (STL) GOLD/RED SST SERUM [facility] Mar 15, 2025 12:00 AM Laboratory - Chemistry Order HEPATITIS A IGG AB (STL) GOLD/RED SST SERUM [facility] Mar 15, 2025 12:00 AM Laboratory - Chemistry Order ALPHA-1 ANTITRYPSIN (STL-PB) GOLD/RED SST SERUM SP [facility] Mar 15, 2025 12:00 AM Laboratory - Chemistry Order CELIAC DISEASE PANEL (STL-MRN) GOLD/RED SST SERUM SP ONCE [facility] Mar 15, 2025 12:00 AM Imaging - General Radiology Order SPINE LUMBOSACRAL 2 OR 3 VIEWS [facility] Mar 15, 2025 10:49 AM Laboratory - Chemistry Order SHIGA TOXIN 1 STOOL FECES WC ONCE [facility] Mar 15, 2025 10:49 AM Laboratory - Chemistry Order C DIFF EPI PCR PNL STOOL, PARA-PACK CLEAN FECES SP [facility] Mar 15, 2025 10:49 AM Laboratory - Microbiology Order C&S STOOL STOOL FECES WC [facility] Mar 15, 2025 10:49 AM Laboratory - Microbiology Order PARASITE EXAM (STL) STOOL, PARA-PACK CLEAN FECES [facility] Mar 15, 2025 10:49 AM Laboratory - Chemistry Order SHIGA TOXIN 2 STOOL FECES WC ONCE [facility] Mar 15, 2025 10:49 AM Consult Order GI DIAGNOSTIC COLONOSCOPY OUTPATIENT JESSICA Cons Consultant Nurse's Choice [facility] Mar 19, 2025 12:00 AM Laboratory - Chemistry Order PROTEIN C ACTIVITY(STL-MA-PB) BLUE,LIGHT(SODIUM CITRATE) PLASMA SP [facility] Mar 31, 2025 12:00 AM Imaging - Ultrasound Order US ABDOMEN LIMITED W/BLOOD FLOW DOPPLER [facility] Lab Results: +/- 30 days of the [...] Type Comment Mar 08, 2025 12:00 PM [facility] PROTHROMBIN GENE ANALYSIS FACTOR II MUT BLOOD Specimen Type: BLOOD Comment: RESULT: [id number] VARIANT NOT DETECTED INTERPRETATION: This individual is negative (normal) for the [id number] variant in the Prothrombin/Fact or II gene. Increased risk of thrombophilia can be caused by a variety of genetic and non-genetic factors not screened for by this assay. Ordering Provider: STU FABIAN Report Released Date/Time: Mar 01, 2025 09:36 AM Reporting Lab: [facility] [address] [facility] [address] Performing Lab: [address] PROTHROMBIN GENE ANALYSIS FACTOR II MUT NEG Mar 08, 2025 12:00 PM [facility] PROTEIN S ACTIVITY(STL-MA-PB) PLASMA Specimen Type: PLASMA Comment: Test Performed by [facility], [facility], [address] [place] [address] Juan Hassan M.D., Ph.D., Director of Laboratories , [place] [id number] Ordering Provider: STU FABIAN Report Released Date/Time: Mar 01, 2025 09:36 AM Reporting Lab: [facility] [address] [facility] [address] Performing Lab: [address] PROTEIN S ACTIVITY(STL-MA-PB) 94 70 -150 Mar 08, 2025 12:00 PM [facility] PROTEIN URINE URINE Specimen Type: URINE No comment entered. Ordering Provider: STU FABIAN Report Released Date/Time: Mar 01, 2025 09:36 AM Reporting Lab: [facility] [address] [facility] [address] Performing Lab: [place] [address] [facility] [address] PROTEIN URINE 20.5 mg/dL Mar 08, 2025 12:00 PM [facility] CREATININE URINE/OTHERS URINE Specimen Type: URINE No comment entered. Ordering Provider: STU FABIAN Report Released Date/Time: Mar 01, 2025 09:36 AM Reporting Lab: [place] [address] [facility] [address] Performing Lab: [facility] [address] [place] [address] CREATININE URINE/OTHERS 249.6 mg/dL H 63-1 66 Mar 08, 2025 12:00 PM [facility] PT/INR NEW (STL-MA) PLASMA Specimen Type: PLAS MA No comment entered. Ordering Provider: STU FABIAN Report Released Date/Time: Mar 01, 2025 09:36 AM Reporting Lab: [address] [address] Performing Lab: [address] [address] PROTIME 15.6 s H 9.4-12.5 INR VALUE 1.4 {INR} Mar 08, 2025 12:00 PM [facility] MICRAL/CREAT PROFILE (STL) URINE Specimen Typ e: URINE No comment entered. Ordering Provider: STU FABIAN Report Released Date/Time: Mar 01, 2025 09:36 AM Reporting Lab: [address] [address] Performing Lab: [address] [address] URINE ALBUMIN (PB-STL) 33.1 mg/L uACR (STL) 13 mg/g 0-29 CREATININE URINE/OTHERS 251.3 mg/dL H 63-1 66 Mar 08, 2025 12:00 PM [facility] APTT PLASMA Specimen Type: PLASM A No comment entered. Ordering Provider: STU FABIAN Report Released Date/Time: Mar 01, 2025 09:36 AM Reporting Lab: [address] [address] Performing Lab: [address] [address] APTT 31.4 s 26.7-39.9 Mar 08, 2025 12:00 PM [facility] GLUCOSE PLASMA Specimen Type: PLASM A No comment entered. Ordering Provider: STU FABIAN Report Released Date/Time: Mar 01, 2025 09:36 AM Reporting Lab: [address] [address] Performing Lab: [address] [address] [facility] GLUCOSE 134 mg/dL H 72-99 Mar 08, 2025 12:00 PM [facility] B12 SERUM Specimen Type: SERUM No comment entered. Ordering Provider: STU FABIAN Report Released Date/Time: Mar 01, 2025 09:36 AM Reporting Lab: [address] [address] Performing Lab: [address] [address] B12 592 pg/mL 213-816 Mar 08, 2025 12:00 PM [facility] CMP PLASMA Specimen Type: PLASM A Comment: No hemolysis noted. Ordering Provider: STU FABIAN Report Released Date/Time: Mar 01, 2025 09:36 AM Reporting Lab: [address] [address] Performing Lab: [address] [address] CREATININE 0.78 mg/dL 0.7-1.3 UREA NITROGEN 15.6 [...] 90.2 >60 Mar 08, 2025 12:00 PM [facility] TSH (MA-PB) SERUM Specimen Type: SERUM No comment entered. Ordering Provider: STU FABIAN Report Released Date/Time: Mar 01, 2025 09:36 AM Reporting Lab: [address] [address] Performing Lab: [facility] [address] [place] [address] TSH 0.702 u[IU]/mL 0.47-5 Mar 08, 2025 12:00 PM [facility] FOLATE (L-MA) SERUM Specimen Type: SERUM No comment entered. Ordering Provider: STU FABIAN Report Released Date/Time: Mar 01, 2025 09:36 AM Reporting Lab: [address] [address] Performing Lab: [address] [address] FOLATE (L-MA) 4.8 ng/mL L 7-20 Mar 08, 2025 12:00 PM [facility] VITAMIN D, 25-HYDROXY SERUM Specimen Type: SE RUM No comment entered. Ordering Provider: STU FABIAN Report Released Date/Time: Mar 01, 2025 09:36 AM Reporting Lab: [address] [address] Performing Lab: [address] [address] VITAMIN D, 25-HYDROXY 28.3 ng/mL L 30-96 Mar 08, 2025 12:00 PM [facility] HGA1C BLOOD Specimen Type: BLOOD No comment entered. Ordering Provider: STU FABIAN Report Released Date/Time: Mar 01, 2025 09:36 AM Reporting Lab: [address] [address] Performing Lab: [address] [address] HGA1C 6.6 Mar 08, 2025 12:00 PM [facility] CBC BLOOD Specimen Type: BLOOD Comment: ~THIS TEST SHOULD ONLY BE USED BY [facility] Ordering Provider: STU FABIAN Report Released Date/Time: Mar 01, 2025 09:36 AM Reporting Lab: [address] [address] Performing Lab: [address] [address] WBC 3.3 10*3/uL L 3.6-11.2 RBC 3.50 [...] SCRNPERF YES Mar 08, 2025 12:00 PM [facility] CYSTATIN C EGFR PANELS (STL-PB-MA) PLASMA Spec imen Type: PLASMA Comment: Choice of which of the reported eGFR values to use depends on the clinical situation. For example, for patients with severe muscle wasting or reduced muscle mass, eGFR calculated using the 2012 cystatin equation may be preferred. Ordering Provider: STU FABIAN Report Released Date/Time: Mar 01, 2025 09:36 AM Reporting Lab: [place] [phone] Performing Lab: [address] [address] CYSTATIN C 1.66 mg/L 0.57-1.80 CKD-EPI CYSTATIN C (2011) 36.6 >60 CKD-EPI CREAT-CYSC (2020) 57.4 >60 CREATININE (STL) 0.76 mg/dL 0.7-1.3 Mar 08, 2025 12:00 PM [facility] LIPID PANEL (STL) PLASMA Specimen Type: PLASM A Comment: No hemolysis noted. Ordering Provider: STU FABIAN Report Released Date/Time: Mar 01, 2025 09:36 AM Reporting Lab: [address] [address] Performing Lab: [address] [address] CHOLESTEROL 136 mg/dL 0-200 TRIGLYCERIDE 138 mg/dL 0-150 CALCULATED LDL 70 mg/dL HDL(New) 38 mg/dL L >40 Mar 08, 2025 12:00 PM [facility] IRON/TIBC PROFILE SERUM Specimen Type: SERUM No comment entered. Ordering Provider: STU FABIAN Report Released Date/Time: Mar 01, 2025 09:36 AM Reporting Lab: [address] [address] Performing Lab: [address] [address] TIBC 190 ug/dL L 250-450 TRANSFERRIN 152 mg/dL L 163-344 IRON SATURATION 25 20-50 IRON 47 ug/dL L 65-175 Mar 08, 2025 12:00 PM [facility] URINALYSIS W/O REFLEX CX (STL-PB) URINE Speci men Type: URINE No comment entered. Ordering Provider: STU FABIAN Report Released Date/Time: Mar 01, 2025 09:36 AM Reporting Lab: [address] [address] Performing Lab: [address] [place] [address] URINE COLOR Yellow Yellow U.BILIRUBIN Negative mg/dL [...] 1.038 H Mar 08, 2025 12:00 PM [facility] FERRITIN SERUM Specimen Type: SERUM No comment entered. Ordering Provider: STU FABIAN Report Released Date/Time: Mar 01, 2025 09:36 AM Reporting Lab: [address] [address] Performing Lab: [address] [address] FERRITIN 61.70 ng/mL 22-275 Mar 08, 2025 12:00 PM [facility] RETICULOCYTE PANEL BLOOD Specimen Type: BLOOD Comment: ~THIS TEST SHOULD ONLY BE USED BY [facility] Ordering Provider: STU FABIAN Report Released Date/Time: Mar 01, 2025 09:36 AM Reporting Lab: [address] [address] Performing Lab: [address] [address] RETIC RATIO 1.65 0.50-2.30 IRF 18.2 H 2.3-13.4 RETICULOCYTE HEMOGLOBIN EQUIVALENT 35.0 pg 28.2-36.6 RETIC COUNT,ABS 0.058 10*6/uL 0.022-0.10 1 Feb 10, 2025 12:51 PM [facility] GLUCOSE,BLOOD-poct (STL) BLOOD Specimen Type: BLOOD Comment: Test Performed by: [id number] Meter #: [id number] Ordering Provider: ANN BEASLEY Report Released Date/Time: Feb 10, 2025 12:53 PM Reporting Lab: [place] [address] [address] [facility] [address] Performing Lab: [place] [address] [facility] [address] GLUCOSE,BLOOD-poct (STL) 199 mg/dL H 72-99 Feb 10, 2025 05:13 AM [facility] GLUCOSE,BLOOD-poct (STL) BLOOD Specimen Type: BLOOD Comment: Test Performed by: [id number] Meter #: [id number] Ordering Provider: ANN BEASLEY Report Released Date/Time: Feb 10, 2025 05:37 AM Reporting Lab: [place] [address] [facility] [address] Performing Lab: [place] [address] [facility] [address] GLUCOSE,BLOOD-poct (STL) 95 mg/dL 72-99 Feb 09, 2025 11:20 PM [facility] APTT PLASMA Specimen Type: PLASM A Comment: ~HEP BOLUS - CALL RESULTS Ordering Provider: JESSE BURGOS Report Released Date/Time: Feb 09, 2025 04:35 PM Reporting Lab: [place] [address] [facility] [address] Performing Lab: [place] [address] [facility] [address] APTT 29.9 s 26.7-39.9 Feb 09, 2025 08:35 PM [facility] GLUCOSE,BLOOD-poct (STL) BLOOD Specimen Type: BLOOD Comment: Test Performed by: [id number] Meter #: [id number] Ordering Provider: ANN BEASLEY Report Released Date/Time: Feb 09, 2025 08:41 PM Reporting Lab: [place] [address] [facility] [address] Performing Lab: [address] [address] GLUCOSE,BLOOD-poct (STL) 159 mg/dL H 72-99 Feb 09, 2025 05:22 PM [facility] MRSA SURVL NARES DNA NARES [...] Feb 09, 2025 04:31 PM Reporting Lab: [address] [address] Performing Lab: [address] [address] MRSA SURVL NARES DNA Negative Negative Feb 09, 2025 05:00 PM [facility] APTT PLASMA Specimen Type: PLASM A Comment: ~HEP BOLUS-CALL RESULTS Ordering Provider: JESSE BURGOS Report Released Date/Time: Feb 09, 2025 04:35 PM Reporting Lab: [address] [address] Performing Lab: [address] [address] APTT 28.0 s 26.7-39.9 Feb 09, 2025 04:59 PM [facility] GLUCOSE,BLOOD-poct (STL) BLOOD Specimen Type: BLOOD Comment: Test Performed by: [id number] Meter #: [id number] Ordering Provider: ANN BEASLEY Report Released Date/Time: Feb 09, 2025 05:02 PM Reporting Lab: [address] [address] Performing Lab: [place] [address] [address] GLUCOSE,BLOOD-poct (STL) 162 mg/dL H 72-99 Feb 09, 2025 01:55 PM [facility] LACTIC ACID (L-PB) PLASMA Specimen Type: TAMARA SMA No comment entered. Ordering Provider: CHINO LEONG I Report Released Date/Time: Feb 09, 2025 01:44 PM Reporting Lab: [address] [address] Performing Lab: [address] [address] LACTIC ACID (STL-PB) 2.9 mmol/L H 0.5-2.0 Feb 09, 2025 11:52 AM [facility] BLOOD GAS PANEL ABG (L) VENOUS BLOOD Specimen Type : VENOUS BLOOD Comment: Test Performed by: [id number] Meter #: [id number] Ordering Provider: ANNIE ARGUETA Report Released Date/Time: Feb 09, 2025 11:53 AM Reporting Lab: [address] [address] Performing Lab: [address] [address] GEM PH 7.40 7.31-7.41 GEM PCO2 36 [...] TEMP 37.0 Feb 09, 2025 11:51 AM [facility] BRAIN NATRIURETIC PEPTIDE PLASMA Specimen Type : PLASMA No comment entered. Ordering Provider: CHINO LEONG I Report Released Date/Time: Feb 09, 2025 01:19 PM Reporting Lab: [address] [address] Performing Lab: [address] [address] BRAIN NATRIURETIC PEPTIDE 341.6 pg/mL H 0- 100 Feb 09, 2025 11:31 AM [facility] TROPONIN I (STL) PLASMA Specimen Type: PLASM A Comment: No hemolysis noted. Ordering Provider: KESHIA HUYNH Report Released Date/Time: Feb 09, 2025 11:30 AM Reporting Lab: [address] [address] Performing Lab: [address] [address] TROPONIN I (STL) 0.019 ng/mL 0-0.033 Feb 09, 2025 11:31 AM [facility] COMPREHENSIVE METABOLIC PANEL PLASMA Specimen Type: PLASMA Comment: No hemolysis noted. Ordering Provider: KESHIA HUYNH Report Released Date/Time: Feb 09, 2025 11:30 AM Reporting Lab: [address] [address] Performing Lab: [address] [address] CREATININE 0.96 mg/dL 0.7-1.3 UREA NITROGEN 16.8 [...] 80.4 >60 Feb 09, 2025 11:[address] [facility] CBC BLOOD Specimen Type: BLOOD No comment entered. Ordering Provider: KESHIA HUYNH Report Released Date/Time: Feb 09, 2025 11:30 AM Reporting Lab: [place] [id number] [facility] [address] Performing Lab: [place] [address] [facility] [address] WBC 5.6 10*3/uL 3.6-11.2 RBC 3.71 10*6/uL [...] 0.00-0. 20 Feb 09, 2025 11:20 AM [facility] GLUCOSE,BLOOD-poct (STL) BLOOD Specimen Type: BLOOD Comment: Test Performed by: [id number] Meter #: [id number] Ordering Provider: ANNIE ARGUETA Report Released Date/Time: Feb 09, 2025 11:22 AM Reporting Lab: [facility] [address] [facility] [address] Performing Lab: [facility] [address] [facility] [address] GLUCOSE,BLOOD-poct (STL) 161 mg/dL H 72-99 Social [...] Facil ity Jun 10, 2024 11:21 AM [place]-TOBACCO USE FOR HANK CIGARETTES [facility] Tobacco Use History This section includes a history of the smoking, or tobacco-related health factors, that were collected on or before the date of the Encounter. The data comes from the [place] facility where the Encounter took place. Date/Time Smoking Status/Tobacco Use Comment F acility Jun 10, 2024 11:21 AM [place]-TOBACCO USE FOR HANK CIGARETTES [facility] Radiology Reports: +/- 30 days [...] EXTREMITY VEINS BILAT (DVT): JOSE MARIA WHITE [id number] -1945 M Exm Date: FEB 10, 2025@11:29 Req Phys: JESSE BURGOS Pat Loc: 6N S OE-JESSICA/02-10-2025@13:14 Img Loc: JESSICA-ULTRASOUND JESSICA Service: [id number] SERVICE [facility] 15 [place] [address] (Case [id number] COMPLETE) US EXTREMITY VEINS BILAT (DVT) (US Detailed) CPT:76991 Reason for Study: dx with PE Clinical History: Report Status: Verified Date Reported: FEB 10, 2025 Date Verified: FEB 10, 2025 Mat Weaver E-Sig:/ES/David Pastrana MD Report: CASE #: [id number] DATE:02/10/2025 12:51 PM CLINICAL HISTORY:dx with PE [...] verification. Dictated by Chastity Mantilla M.D. (Diagnostic Electronic Security Technician). I, David Pastrana, have reviewed the images and report and concur with these findings. Primary Interpreting Staff: David Pastrana MD, Radiologist (Mat Weaver) Primary Interpreting Resident: Chastity Mantilla MD, Resident Physician /DAVID WILCOX [facility] Feb 09, 2025 03:[address] PE CHEST W/3D: JOSE MARIA WHITE [id number] -1945 M Exm Date: FEB 09, 2025@15:10 Req Phys: KARANKONGTHERESAFELISA Padilla Loc: 6N S OE-[facility]/02-09-2025@16:39 Im Loc: [facility]-CT IMAGING [facility] Service: Unknown [facility] [address] [place] [address] (Case [id number] COMPLETE) CT THORAX W/CONT (PE) (CT Detailed) CPT:37245 Contrast Media : unspecified contrast media Reason for Study: syncope, abormanl CXR Clinical History: Responsible Attending: Mariam Attending Contact Number: [phone] Resident Contact Number: syncope, abormanl CXR Allergies listed in CPRS chart: PENICILLIN, TETRACYCLINE, NEOSPORIN, CELEBREX, SIMVASTATIN Creatinine: CREATININE 0.96 mg/dL 02/09/2025 11:31 /eGFR: STL EGFR (within one year). CREATININE 0.96 mg/dL (02/09/25 11:31) Wt: 273.5 lb [124.06 kg] (09/10/2023 13:16) History of: Renal failure, chronic or acute renal disease: NO Report Status: Verified Date Reported: FEB 09, 2025 Date Verified: FEB 09, 2025 Mat Weaver E-Sig:/ES/REA MARLEY Report: CASE #: [id number] DATE:02/09/2025 4:08 PM CLINICAL HISTORY:syncope, abormanl CXR [...] confirmation. Dictated by Jamal Chiu M.D. (Diagnostic Electronic Security Technician). I, Rea Marley, have reviewed the images and report and concur with these findings. Primary Interpreting Staff: REA MARLEY, Staff Physician (Mat Weaver) Primary Interpreting Resident: JAMAL CHIU Resident Physician /REA HOPE [facility] Feb 09, 2025 01:[address] HEAD W/O CONT: CHRISTOPHERJOSE MARIA HUSAIN [id number] -1945 M Exm Date: FEB 09, 2025@13:01 Req Phys: CHINO LEONG Loc: [facility]-EMERGENCY DEPT 2ND SHIFT (R Img Loc: [facility]-CT IMAGING [facility] Service: Unknown [address] [address] (Case [id number] COMPLETE) CT HEAD W/O CONT (CT Detailed) CPT:25643 Reason for Study: syncopal episode Clinical History: Responsible Attending: Mariam Attending Contact Number: [phone] Resident Contact Number: syncopal episode Allergies listed in CPRS chart: PENICILLIN, TETRACYCLINE, NEOSPORIN, CELEBREX, SIMVASTATIN Creatinine: CREATININE 0.90 mg/dL 08/07/2024 14:00 /eGFR: STL EGFR (within one year). CREATININE 0.90 mg/dL (08/07/24 14:00) Wt: 273.5 lb [124.06 kg] (09/10/2023 13:16) History of: Renal failure, chronic or acute renal disease: NO Report Status: Verified Date Reported: FEB 09, 2025 Date Verified: FEB 09, 2025 Mat Weaver E-Sig:/ES/REA MARLEY Report: CASE #: [id number] DATE:02/09/2025 1:35 PM CLINICAL HISTORY:syncopal episode TECHNIQUE: [...] process. Dictated by Jamal Chiu M.D. (Diagnostic Electronic Security Technician). I, Rea Marley, have reviewed the images and report and concur with these findings. Primary Interpreting Staff: REA MARLEY, Staff Physician (Mat Weaver) Primary Interpreting Resident: JAMAL CHIU, Resident Physician /REA HOPE [facility] Feb 09, 2025 11:32 AM CHEST PORTABLE: ISMAELSANARAJIJOSE MARIA [id number] -1945 M Exm Date: FEB 09, 2025@11:32 Req Phys: KESHIA HUYNH Loc: [facility]-EMERGENCY DEPT 2ND SHIFT (R Img Loc: -MAIN RADIOLOGY SUITE Service: [address] [address] (Case [id number] COMPLETE) CHEST PORTABLE (RAD Detailed) CPT:15817 Proc Modifiers : Portable Reason for Study: hypotension Clinical History: Report Status: Verified Date Reported: FEB 09, 2025 Date Verified: FEB 09, 2025 Mat Weaver E-Sig:/ES/David Pastrana MD Report: CASE [id number]. AP portable view chest. COMPARISON: FINDINGS: Bilateral [...] effusion. Dictated by Jamal Chiu M.D. (Diagnostic Electronic Security Technician). I, David Pastrana, have reviewed the images and report and concur with these findings. Primary Interpreting Staff: David Pastrana MD, Radiologist (Mat Weaver) Primary Interpreting Resident: JAMAL CHIU, Resident Physician /DAVID WADE [facility] Pathology Reports: +/- 30 days [...] MICROBIOLOGY RE PORT: Accession [UID]: [id number] [[id number]] Received: Feb 09, 2025@12:29 Collection sample: B D BLD. BOTTLE Collection date: Feb 09, 2025 12:20 Site/Specimen: BLOOD Provider: ANNIE ARGUETA Test(s) ordered: BLOOD CULT (SET 1)............ completed: Feb 15, 2025 12:44 * BACTERIOLOGY FINAL REPORT => Feb 15, 2025 12:46 [facility] CODE: [id number] Bacteriology Remark(s): 02/10/25 CMG CULTURE IS NEGATIVE TO DATE, ALL POSITIVES ARE ROUTINELY CALLED. Culture shows NO GROWTH IN 6 DAYS. 02/15/25 CED =--=--=--=--=--=--=--=--=--=- -=--=--=--=--=--=--=--=--=--= --=--=--=--=--=--=-- Performing Laboratory: Bacteriology Report Performed By: [facility] CLIA# [id number] [address] [address] Bact Report Remark Performed By: [facility] CLIA# [id number] [address] [facility] [address] [place] [address] [facility] Feb 09, 2025 12:15 PM LR MICROBIOLOGY RE PORT: Accession [UID]: [id number] [[id number]] Received: Feb 09, 2025@12:29 Collection sample: B D BLD. BOTTLE (SET 2)Collection date: Feb 09, 2025 12:15 Site/Specimen: BLOOD Provider: ANNIE ARGUETA T Test(s) ordered: BLOOD CULT (SET 2)............ completed: Feb 15, 2025 12:45 * BACTERIOLOGY FINAL REPORT => Feb 15, 2025 12:46 TECH CODE: [id number] Bacteriology Remark(s): 02/10/25 CMG CULTURE IS NEGATIVE TO DATE, ALL POSITIVES ARE ROUTINELY CALLED. Culture shows NO GROWTH IN 6 DAYS. 02/15/25 CED =--=--=--=--=--=--=--=--=--=- -=--=--=--=--=--=--=--=--=--= --=--=--=--=--=--=-- Performing Laboratory: Bacteriology Report Per[facility]: [facility] CLIA# [id number] [address] [facility] [address] [place] [address] Bact Report Remark Performed By: [facility] [address] [place] [address] CLIA# [id number] [address] [place] [address] [facility] Encounter Notes: All associated encounter notes This section contains the clinical notes associated to the Encounter. Date/Time Encounter Note(s) Provider Source Feb 22, 2025 12:39 PM CARDIOLOGY DIAGNOS TIC STUDY CONSULT: LOCAL TITLE: HOLTER MONITOR COMPLETED CONSULT ST STANDARD TITLE: CARDIOLOGY DIAGNOSTIC STUDY CONSULT DATE OF NOTE: FEB 22, 2025@12:39 ENTRY DATE: FEB 22, 2025@12:39:57 AUTHOR: KEITH OBRIEN EXP COSIGNER: URGENCY: STATUS: COMPLETED 14-day Ambulatory Holter Report Date test started: 01/25/25, 05:59pm Date test ended: 02/08/25, 12:39pm Date Report Received: 02/22/2025 Duration of Recordin days 19 hours Duration of Analysis: 13 days 18 hours Reason for Holter: (I48.91) Unspecified atrial fibrillation High Heart Rate: 171 bpm-during fastest 3 beats of supraventricular tachycardia-fastest sinus heart rate 136 bpm Average Heart Rate: 73 bpm Low Heart Rate: 48 bpm 03:02am, 01/31 VENTRICULAR ECTOPY TOTAL number of Premature Ventricular Contractions: 1.4% Total Paired PVC's: <1.0% 721 Total Triplet PVC's: <1.0% 11 Longest Ventricular Bigeminy Episode 6.8 seconds Longest Ventricular Trigeminy Episode 16.7 seconds Total runs of Non-sustained Ventricular Tachycardia: 2 Longest Run: 8 beats Fastest Run: 160 bpm ATRIAL ECTOPY TOTAL number of Premature Atrial Contractions: 2.1% 20743 Total Paired PAC's: <1.0% 1209 Total Triplet PAC's: <1.0% 123 Total runs of Paroxysmal Atrial Tachycardia: 143 Longest Run: 9 seconds Fastest Run: 171 bpm Rhythm Interpretation: 1) Predominant underlying rhythm was Sinus Rhythm w/First Degree AV Block Bundle Branch Block/Intraventricular conduction delay, Idioventricular Rhythm was present, no atrial fibrillation/flutter was detected on this study. 2) there was 1 patient triggered event no symptoms given: 02/01/25 09:27:16pm Findings: Sinus (74 bpm) 3) Sinus rates <50 bpm <1% Sinus rates >100 bpm 4% Clinical Significance: Prematue ventricular contractions at low burden with occasional bigeminal and trigeminal rhythm with brief runs of non-sustained ventricular tachycardia. Premature atrial contractions with brief runs of paroxysmal atrial tachycardia. No atrial fibrillation was detected. Consider evaluation in outpatient cardiology clinic. /cas/ Keith Obrien MD Staff Physician- Cardiology Signed: 02/22/2025 18:01 Receipt Acknowledged By: 02/23/2025 07:41 /es/ Heraclio Becker [employer] Executive-EKG * AWAITING SIGNATURE * CARLOS ESQUIVEL 02/23/2025 09:12 /es/ CHELSY JAMISON Medical Engineering Executive/EKG 02/23/2025 08:32 /es/ BLAYNE HARRELL Medical Engineering Executive EKG KEITH OBRIEN [facility]
--- OUTSIDE RECORDS SUMMARY | 2025-03-10 02:14 | XMS_ITS | Encounter Summary ---
Author Name Department of [facility]a Affairs ([place]) Organization [facility] Address [address] [place] [address] Care Team Providers Care Managing Partner [employer] [place] Name Role Phone GRACE QUINN Primary Care Provider UnavailKAYODE Marquez Primary Care Provider Unavail able RACHAEL CARDONA Unavailable Unavailable GABRIELLE QUINN Unavailable Unavailable ROBINSON DAWKINS Unavailable Unavailable CALVIN OSEI Unavailable Unavailable ABDON PECK Unavailable Unavailable CHINYERE DOMINGUEZ Unavailable Unavailable VILMA CEDILLO Unavailable Unavailable AUSTIN HOWARD Unavailable Unavailable STU FABIAN Primary Care Provider UnavailCÉSAR Naik Unavailable Unavailable SHARON HOLCOMB Unavailable Unavailable TRACEY MONROEN Unavailable Unavailable PATRICE OATES Unavailable Unavail able [...] Name Patient's Relationship to Policy [place] [facility] MEDICARE SUPPLEMEN SHEILA PLANF Mar 25, 2016 PLAN [id number] [phone] ISMAELTESS JOSE MARIA PATIENT [facility] MEDICARE SUPPLEMEN SHEILA PLANF Oct 23, 2010 PLANF [id number] CHRISTOPHER JOSE MARIA PATIENT [facility] MEDICARE SUPPLEMEN TAL PLAN Mar 25, 2016 PLANF [id number] JOSE MARIA WHITEP MED SUPP MEDICARE SUPPLEMEN TAL PLAN Oct 23, 2010 PLAN [id number] [phone] JOSE MARIA WHITEP [facility] (WNR) MEDICARE ADVANTAGE [facility] (WNR) July 24, 2023 [id number] JOSE MARIA WHITE PATIENT MEDICARE (WNR) MEDICARE (M) PART A July 24, 2003 PART A [id number] JOSE MARIA WHITE PATIENT MEDICARE (WNR) MEDICARE (M) PART B July 24, 2003 PART B [id number] JOSE MARIA WHITE PATIENT MEDICARE (WNR) MEDICARE (M) PART A July 24, 2003 PART A [id number] JOSE MARIA WHITE PATIENT [facility] (WNR) MEDICARE ADVANTAGE MCR (WNR) Mar 25, 2024 [id number] JOSE MARIA WHITE PATIENT [facility] (WNR) MEDICARE ADVANTAGE MCR (WNR) Mar 25, 2024 [id number] JOSE MARIA WHITE PATIENT Selected Encounter This section includes the information on record at [place] for the Encounter. Date/Time Encounter Type Encounter Description Reason Provider Source Mar 10, 2025 08:14 AM NQHP OL DIG ASSMT&MGMT 21+ [facility] - CLINICAL PHARMACIST ICD-10-CM Z51.81 Encounter for therapeutic drug level monitoring CARINA VANCE Vincent Encounter Template Text not used by [place] Assessments - Encounter Diagnoses This section includes the primary and secondary diagnoses documented for the Encounter. Date/Time Primary/Secondary Diagnosis Diagnosis Name Provider Source Mar 10, 2025 03:24 PM PRIMARY Encounter for therapeutic drug level monitoring CARINA VANCE [facility] Plan of Treatment: Future Appointments (+ 6 months) and Future Tests (+/- 45 days) The Plan of Treatment section includes future care activities for the patient from all [place] treatmentfacilities. This section includes future appointments and future orders which are active, pending or scheduled. Future Appointments This section includes appointments that were scheduled to occur 6 months from the date of the Encounter, up to a maximum of 20 appointments. The data comes from all [facility]. Appointment Date/Time Appointment Type Appointme nt Facility Name Mar 15, 2025 01:30 PM AMBULATORY - NONE [facility] Mar 31, 2025 10:00 AM AMBULATORY - MEDICINE [facility] Mar 31, 2025 12:00 PM AMBULATORY - SURGERY [facility] Mar 31, 2025 02:30 PM AMBULATORY - MEDICINE [facility] Apr 09, 2025 11:00 AM AMBULATORY - MEDICINE [facility] May 03, 2025 03:00 PM AMBULATORY - NONE [facility] Active, Pending, and Scheduled Orders This section includes a listing of several types of active, pending, and scheduled orders, including clinic medications orders, diagnostic test orders, procedure orders and consult orders; where the start date of the order is 45 days before the date of the Encounter or 45 days after the date of theEncounter. The data comes from all [facility]. Test Date/Time Test Type Test Details Facility Name Feb 09, 2025 12:18 PM Laboratory - Chemistry Order URINALYSIS W/ CX REFLEX (STL-PB) URN - CLEAN CATCH URINE WC ONCE [facility] Mar 01, 2025 12:00 AM Laboratory - Microbiology Order C&S URINE URINE HOLT WC ONCE [facility] Mar 01, 2025 12:00 AM Laboratory - Chemistry Order OCCULT BLOOD FIT X1 SCREEN STOOL FECES SP [facility] Mar 01, 2025 12:00 AM Laboratory - Chemistry Order ANTITHROMBIN III ACTIVITY BLUE,LIGHT(SODIUM CITRATE) PLASMA SP [facility] Mar 01, 2025 09:36 AM Consult Order EYE CLINIC OUTPT JESSICA Cons Commercial Electrician's Choice [facility] Mar 01, 2025 09:36 AM Consult Order VASCULAR LAB OUTPT STL Cons Commercial Electrician's Choice [facility] Mar 01, 2025 09:36 AM Consult Order CARDIOLOGY OUTPT JESSICA Cons Commercial Electrician's Choice [facility] Mar 08, 2025 12:00 PM Laboratory - Chemistry Order FACTOR V(LEIDEN)MUTATION ANALYSIS BLOOD SP [facility] Mar 09, 2025 12:00 AM Laboratory - Chemistry Order URINE DRUG SCREEN (STL) URINE YELLOW SP [facility] Mar 15, 2025 12:00 AM Laboratory - Chemistry Order LACTOFERRIN,STOOL (STL-MA-PB) STOOL FECES SP [facility] Mar 15, 2025 12:00 AM Laboratory - Chemistry Order HEP C Ab HCV Ab (STL) GOLD/RED SST SERUM SP [facility] Mar 15, 2025 12:00 AM Laboratory - Chemistry Order ANTI-NUCLEAR ANTIBODY (STL-PB) GOLD/RED SST SERUM SP [facility] Mar 15, 2025 12:00 AM Laboratory - Chemistry Order ANTI-MITOCHONDRIAL AB (STL-PB) GOLD/RED SST SERUM SP [facility] Mar 15, 2025 12:00 AM Laboratory - Chemistry Order ACTIN (SMOOTHMUSCLE) ANTIBODY IGG GOLD/RED SST SERUM SP [facility] Mar 15, 2025 12:00 AM Laboratory - Chemistry Order HEP HB S Ag (AUSRIA) (STL) GOLD/RED SST SERUM SP [facility] Mar 15, 2025 12:00 AM Laboratory - Chemistry Order IGG (STL) GOLD/RED SST SERUM SP [facility] Mar 15, 2025 12:00 AM Laboratory - Chemistry Order HEPATITIS B SURFACE AB PNL GOLD/RED SST SERUM SP [facility] Mar 15, 2025 12:00 AM Laboratory - Chemistry Order HEP B CORE AB TOTAL. (STL) GOLD/RED SST SERUM SP [facility] Mar 15, 2025 12:00 AM Laboratory - Chemistry Order HEPATITIS A IGG AB (STL) GOLD/RED SST SERUM SP [facility] Mar 15, 2025 12:00 AM Laboratory - Chemistry Order CELIAC DISEASE PANEL (STL-MRN) GOLD/RED SST SERUM SP ONCE [facility] Mar 15, 2025 12:00 AM Laboratory - Chemistry Order ALPHA-1 ANTITRYPSIN (STL-PB) GOLD/RED SST SERUM SP [facility] Mar 15, 2025 12:00 AM Imaging - General Radiology Order SPINE LUMBOSACRAL 2 OR 3 VIEWS [facility] Mar 15, 2025 10:49 AM Laboratory - Chemistry Order SHIGA TOXIN 1 STOOL FECES WC ONCE [facility] Mar 15, 2025 10:49 AM Laboratory - Chemistry Order SHIGA TOXIN 2 STOOL FECES WC ONCE [facility] Mar 15, 2025 10:49 AM Laboratory - Microbiology Order C&S STOOL STOOL FECES WC [facility] Mar 15, 2025 10:49 AM Laboratory - Chemistry Order C DIFF EPI PCR PNL STOOL, PARA-PACK CLEAN FECES [facility] Mar 15, 2025 10:49 AM Laboratory - Microbiology Order PARASITE EXAM (STL) STOOL, PARA-PACK CLEAN FECES [facility] Mar 15, 2025 10:49 AM Consult Order GI DIAGNOSTIC COLONOSCOPY OUTPATIENT JESSICA Cons Commercial Electrician's Choice [facility] Mar 19, 2025 12:00 AM Laboratory - Chemistry Order PROTEIN C ACTIVITY(STL-MA-PB) BLUE,LIGHT(SODIUM CITRATE) PLASMA SP [facility] Mar 31, 2025 12:00 AM Imaging - Ultrasound Order US ABDOMEN LIMITED W/BLOOD FLOW DOPPLER [facility] Apr 22, 2025 12:00 AM Laboratory - Chemistry Order URINE DRUG SCREEN (STL) URINE YELLOW [facility] Lab Results: +/- 30 days of the encounter This section includes the Chemistry and Hematology Lab Results on record with [place] for the patient. Radiology Reports and Pathology Reports are provided separately, in subsequent sections. Lab Results This section contains the Chemistry/Hematology Results that were resulted 30 days before or 30 daysafter the date of the Encounter. Date/Time Source Result Type Result - Unit Interpretation Reference Range Specimen Type Comment Mar 08, 2025 12:00 PM [facility] PROTHROMBIN GENE ANALYSIS FACTOR II MUT BLOOD Specimen Type: BLOOD Comment: RESULT: [id number] VARIANT NOT DETECTED INTERPRETATION: This individual is negative (normal) for the [id number] variant in the Prothrombin/Fact or II gene. Increased risk of thrombophilia can be caused by a variety of genetic and non-genetic factors not screened for by this assay. Ordering Provider: STU FABIAN Report Released Date/Time: Mar 01, 2025 09:36 AM Reporting Lab: [address] [address] Performing Lab: [address] PROTHROMBIN GENE ANALYSIS FACTOR II MUT NEG Mar 08, 2025 12:00 PM [facility] PROTEIN S ACTIVITY(STL-MA-PB) PLASMA Specimen Type: PLASMA Comment: Test Performed by [facility], [employer], [address] [place] [address] Juan Hassan M.D., Ph.D., Director of Laboratories , [facility] [id number] Ordering Provider: STU FABIAN Report Released Date/Time: Mar 01, 2025 09:36 AM Reporting Lab: [address] [address] Performing Lab: [address] PROTEIN S ACTIVITY(STL-MA-PB) 94 70 -150 Mar 08, 2025 12:00 PM [facility] PROTEIN URINE URINE Specimen Type: URINE No comment entered. Ordering Provider: STU FABIAN Report Released Date/Time: Mar 01, 2025 09:36 AM Reporting Lab: [address] [address] Performing Lab: [address] [address] PROTEIN URINE 20.5 mg/dL Mar 08, 2025 12:00 PM [facility] CREATININE URINE/OTHERS URINE Specimen Type: URINE No comment entered. Ordering Provider: STU FABIAN Report Released Date/Time: Mar 01, 2025 09:36 AM Reporting Lab: [address] [address] Performing Lab: [address] [address] CREATININE URINE/OTHERS 249.6 mg/dL H 63-1 66 Mar 08, 2025 12:00 PM [facility] MICRAL/CREAT PROFILE (STL) URINE Specimen Typ e: URINE No comment entered. Ordering Provider: STU FABIAN Report Released Date/Time: Mar 01, 2025 09:36 AM Reporting Lab: [facility] [address] [facility] [address] Performing Lab: [facility] [address] [facility] [facility] [address] URINE ALBUMIN (PB-STL) 33.1 mg/L uACR (STL) 13 mg/g 0-29 CREATININE URINE/OTHERS 251.3 mg/dL H 63-1 66 Mar 08, 2025 12:00 PM [facility] APTT PLASMA Specimen Type: PLASM A No comment entered. Ordering Provider: STU FABIAN Report Released Date/Time: Mar 01, 2025 09:36 AM Reporting Lab: [facility] [address] [facility] [address] Performing Lab: [facility] [address] [facility] [facility] [address] APTT 31.4 s 26.7-39.9 Mar 08, 2025 12:00 PM [facility] PT/INR NEW (STL-MA) PLASMA Specimen Type: PLAS MA No comment entered. Ordering Provider: STU FABIAN Report Released Date/Time: Mar 01, 2025 09:36 AM Reporting Lab: [facility] [address] [facility] [address] Performing Lab: [facility] [address] [facility] [address] PROTIME 15.6 s H 9.4-12.5 INR VALUE 1.4 {INR} Mar 08, 2025 12:00 PM [facility] HBPC GLUCOSE PLASMA Specimen Type: PLASM A No comment entered. Ordering Provider: STU FABIAN Report Released Date/Time: Mar 01, 2025 09:36 AM Reporting Lab: [facility] [address] [facility] [address] Performing Lab: [facility] [address] [place] [address] HBPC GLUCOSE 134 mg/dL H 72-99 Mar 08, 2025 12:00 PM [facility] TSH (MA-PB) SERUM Specimen Type: SERUM No comment entered. Ordering Provider: STU FABIAN Report Released Date/Time: Mar 01, 2025 09:36 AM Reporting Lab: [address] [address] Performing Lab: [address] [address] TSH 0.702 u[IU]/mL 0.47-5 Mar 08, 2025 12:00 PM [facility] B12 SERUM Specimen Type: SERUM No comment entered. Ordering Provider: STU FABIAN Report Released Date/Time: Mar 01, 2025 09:36 AM Reporting Lab: [address] [address] Performing Lab: [address] [address] B12 592 pg/mL 213-816 Mar 08, 2025 12:00 PM [facility] HBPC CMP PLASMA Specimen Type: PLASM A Comment: No hemolysis noted. Ordering Provider: STU FABIAN Report Released Date/Time: Mar 01, 2025 09:36 AM Reporting Lab: [address] [address] Performing Lab: [address] [address] CREATININE 0.78 mg/dL 0.7-1.3 UREA NITROGEN 15.6 [...] >60 Mar 08, 2025 12:00 PM [facility] FOLATE (STL-MA) SERUM Specimen Type: SERUM No comment entered. Ordering Provider: STU FABIAN Report Released Date/Time: Mar 01, 2025 09:36 AM Reporting Lab: [address] [address] Performing Lab: [address] [address] FOLATE (L-IN) 4.8 ng/mL L 7-20 Mar 08, 2025 12:00 PM [facility] VITAMIN D, 25-HYDROXY SERUM Specimen Type: SE RUM No comment entered. Ordering Provider: STU FABIAN Report Released Date/Time: Mar 01, 2025 09:36 AM Reporting Lab: [address] [address] Performing Lab: [address] [address] VITAMIN D, 25-HYDROXY 28.3 ng/mL L 30-96 Mar 08, 2025 12:00 PM [facility] HGA1C BLOOD Specimen Type: BLOOD No comment entered. Ordering Provider: STU FABIAN Report Released Date/Time: Mar 01, 2025 09:36 AM Reporting Lab: [address] [address] Performing Lab: [address] [address] HGA1C 6.6 Mar 08, 2025 12:00 PM [facility] LIPID PANEL (STL) PLASMA Specimen Type: PLASM A Comment: No hemolysis noted. Ordering Provider: STU FABIAN Report Released Date/Time: Mar 01, 2025 09:36 AM Reporting Lab: [facility] [address] [place] [address] Performing Lab: [address] [address] CHOLESTEROL 136 mg/dL 0-200 TRIGLYCERIDE 138 mg/dL 0-150 CALCULATED LDL 70 mg/dL HDL(New) 38 mg/dL L >40 Mar 08, 2025 12:00 PM [facility] CBC BLOOD Specimen Type: BLOOD Comment: ~THIS TEST SHOULD ONLY BE USED BY HB Ordering Provider: STU FABIAN Report Released Date/Time: Mar 01, 2025 09:36 AM Reporting Lab: [address] [address] Performing Lab: [address] [address] WBC 3.3 10*3/uL L 3.6-11.2 RBC 3.50 [...] SCRNPERF YES Mar 08, 2025 12:00 PM [facility] CYSTATIN C EGFR PANELS (STL-PB-MA) PLASMA Spec imen Type: PLASMA Comment: Choice of which of the reported eGFR values to use depends on the clinical situation. For example, for patients with severe muscle wasting or reduced muscle mass, eGFR calculated using the 2012 cystatin equation may be preferred. Ordering Provider: STU FABIAN Report Released Date/Time: Mar 01, 2025 09:36 AM Reporting Lab: [address] [address] Performing Lab: [address] [address] CYSTATIN C 1.66 mg/L 0.57-1.80 CKD-EPI CYSTATIN C (2011) 36.6 >60 CKD-EPI CREAT-CYSC (2020) 57.4 >60 [address]ATININE ([facility]) 0.76 mg/dL 0.7-1.3 Mar 08, 2025 12:00 PM [facility] IRON/TIBC PROFILE SERUM Specimen Type: SERUM No comment entered. Ordering Provider: STU FABIAN Report Released Date/Time: Mar 01, 2025 09:36 AM Reporting Lab: [address] [address] Performing Lab: [address] [address] TIBC 190 ug/dL L 250-450 TRANSFERRIN 152 mg/dL L 163-344 IRON SATURATION 25 20-50 IRON 47 ug/dL L 65-175 Mar 08, 2025 12:00 PM [facility] FERRITIN SERUM Specimen Type: SERUM No comment entered. Ordering Provider: STU FABIAN Report Released Date/Time: Mar 01, 2025 09:36 AM Reporting Lab: [address] [address] Performing Lab: [address] [address] FERRITIN 61.70 ng/mL 22-275 Mar 08, 2025 12:00 PM [facility] URINALYSIS W/O REFLEX CX (STL-PB) URINE Speci men Type: URINE No comment entered. Ordering Provider: STU FABIAN Report Released Date/Time: Mar 01, 2025 09:36 AM Reporting Lab: [place] [phone] Performing Lab: [place] [phone] URINE COLOR Yellow Yellow U.BILIRUBIN Negative mg/dL [...] H Mar 08, 2025 12:00 PM [facility] RETICULOCYTE PANEL BLOOD Specimen Type: BLOOD Comment: ~THIS TEST SHOULD ONLY BE USED BY HB Ordering Provider: STU FABIAN Report Released Date/Time: Mar 01, 2025 09:36 AM Reporting Lab: [place] [address] Performing Lab: [place] [address] RETIC RATIO 1.65 0.50-2.30 IRF 18.2 H 2.3-13.4 RETICULOCYTE HEMOGLOBIN EQUIVALENT 35.0 pg 28.2-36.6 RETIC COUNT,ABS 0.058 10*6/uL 0.022-0.10 1 Feb 10, 2025 12:51 PM [facility] GLUCOSE,BLOOD-poct (STL) BLOOD Specimen Type: BLOOD Comment: Test Performed by: [id number] Meter #: [id number] Ordering Provider: ANN BEASLEY Report Released Date/Time: Feb 10, 2025 12:53 PM Reporting Lab: [place] [address] [facility] [address] Performing Lab: [place] [address] [facility] [address] GLUCOSE,BLOOD-poct (STL) 199 mg/dL H 72-99 Feb 10, 2025 05:13 AM [facility] GLUCOSE,BLOOD-poct (STL) BLOOD Specimen Type: BLOOD Comment: Test Performed by: [id number] Meter #: [id number] Ordering Provider: ANN BEASLEY Report Released Date/Time: Feb 10, 2025 05:37 AM Reporting Lab: [place] [address] [facility] [address] Performing Lab: [place] [address] [facility] [address] GLUCOSE,BLOOD-poct (STL) 95 mg/dL 72-99 Feb 09, 2025 11:20 PM [facility] APTT PLASMA Specimen Type: PLASM A Comment: ~HEP BOLUS - CALL RESULTS Ordering Provider: JESSE BURGOS Report Released Date/Time: Feb 09, 2025 04:35 PM Reporting Lab: [place] [address] [facility] [address] Performing Lab: [place] [address] [facility] [address] APTT 29.9 s 26.7-39.9 Feb 09, 2025 08:35 PM [facility] GLUCOSE,BLOOD-poct (STL) BLOOD Specimen Type: BLOOD Comment: Test Performed by: [id number] Meter #: [id number] Ordering Provider: ANN BEASLEY Report Released Date/Time: Feb 09, 2025 08:41 PM Reporting Lab: [place] [address] [facility] [address] Performing Lab: [place] [address] [facility] [address] GLUCOSE,BLOOD-poct (STL) 159 mg/dL H 72-99 Feb 09, 2025 05:22 PM [facility] MRSA SURVL NARES DNA NARES [...] Feb 09, 2025 04:31 PM Reporting Lab: [address] [address] Performing Lab: [address] [address] MRSA SURVL NARES DNA Negative Negative Feb 09, 2025 05:00 PM [facility] APTT PLASMA Specimen Type: PLASM A Comment: ~HEP BOLUS-CALL RESULTS Ordering Provider: JESSE BURGOS Report Released Date/Time: Feb 09, 2025 04:35 PM Reporting Lab: [address] [address] Performing Lab: [address] [address] APTT 28.0 s 26.7-39.9 Feb 09, 2025 04:59 PM [facility] GLUCOSE,BLOOD-poct (STL) BLOOD Specimen Type: BLOOD Comment: Test Performed by: [id number] Meter #: [id number] Ordering Provider: ANN BEASLEY Report Released Date/Time: Feb 09, 2025 05:02 PM Reporting Lab: [address] [address] Performing Lab: [address] [address] GLUCOSE,BLOOD-poct (STL) 162 mg/dL H 72-99 Feb 09, 2025 01:55 PM [facility] LACTIC ACID (STL-PB) PLASMA Specimen Type: TAMARA SMA No comment entered. Ordering Provider: CHINO LEONG I Report Released Date/Time: Feb 09, 2025 01:44 PM Reporting Lab: [address] [address] Performing Lab: [address] [address] LACTIC ACID (STL-PB) 2.9 mmol/L H 0.5-2.0 Feb 09, 2025 11:52 AM [facility] BLOOD GAS PANEL ABG (L) VENOUS BLOOD Specimen Type : VENOUS BLOOD Comment: Test Performed by: [id number] Meter #: [id number] Ordering Provider: ANNIE ARGUETA Report Released Date/Time: Feb 09, 2025 11:53 AM Reporting Lab: [address] [address] Performing Lab: [address] [address] GEM PH 7.40 7.31-7.41 GEM PCO2 36 [...] TEMP 37.0 Feb 09, 2025 11:51 AM [facility] BRAIN NATRIURETIC PEPTIDE PLASMA Specimen Type : PLASMA No comment entered. Ordering Provider: CHINO LEONG I Report Released Date/Time: Feb 09, 2025 01:19 PM Reporting Lab: [address] [address] Performing Lab: [address] [address] BRAIN NATRIURETIC PEPTIDE 341.6 pg/mL H 0- 100 Feb 09, 2025 11:31 AM [facility] TROPONIN I (STL) PLASMA Specimen Type: PLASM A Comment: No hemolysis noted. Ordering Provider: KESHIA HUYNH Report Released Date/Time: Feb 09, 2025 11:30 AM Reporting Lab: [address] [address] Performing Lab: [address] [address] TROPONIN I (STL) 0.019 ng/mL 0-0.033 Feb 09, 2025 11:31 AM [facility] COMPREHENSIVE METABOLIC PANEL PLASMA Specimen Type: PLASMA Comment: No hemolysis noted. Ordering Provider: KESHIA HUYNH Report Released Date/Time: Feb 09, 2025 11:30 AM Reporting Lab: [address] [address] Performing Lab: [address] [address] CREATININE 0.96 mg/dL 0.7-1.3 UREA NITROGEN 16.8 [...] Feb 09, 2025 11:31 AM [facility] CBC BLOOD Specimen Type: BLOOD No comment entered. Ordering Provider: KESHIA HUYNH Report Released Date/Time: Feb 09, 2025 11:30 AM Reporting Lab: [address] [address] Performing Lab: [address] [address] WBC 5.6 10*3/uL 3.6-11.2 RBC 3.71 10*6/uL [...] 0.00-0. 20 Feb 09, 2025 11:20 AM [facility] GLUCOSE,BLOOD-poct (STL) BLOOD Specimen Type: BLOOD Comment: Test Performed by: [id number] Meter #: [id number] Ordering Provider: ANNIE ARGUETA Report Released Date/Time: Feb 09, 2025 11:22 AM Reporting Lab: [address] [address] Performing Lab: [facility] [address] [facility] [address] GLUCOSE,BLOOD-poct (STL) 161 mg/dL H 72-99 Social History: Smoking Status (Most current) and Tobacco Use (All prior to encounter date) This section includes the most current, and the historical, smoking and tobacco- related health factors from the [place] facility where the Encounter took place. Current Smoking Status This section includes the most current smoking, or tobacco-related health factor, from the [place] facility where the Encounter took place. Date/Time Current Smoking Status Comment Facil ity Jun 05, 2023 01:00 PM [place]-TOBACCO FORMER USER [facility] Tobacco Use History This section includes a history of the smoking, or tobacco-related health factors, that were collected on or before the date of the Encounter. The data comes from the [place] facility where the Encounter took place. Date/Time Smoking Status/Tobacco Use Comment F acility Jun 05, 2023 01:00 PM [place]-TOBACCO QUIT 15 YRS OR MORE [facility] Radiology Reports: +/- 30 days of the [...] the Encounter. The data comes from all [place] treatment facilities. Date/Time Radiology Report Provider Source Feb 10, 2025 11:29 AM US EXTREMITY VEINS BILAT (DVT): JOSE MARIA WHITE [id number] -1945 M Exm Date: FEB 10, 2025@11:29 Req Phys: JESSE BURGOS Pat Loc: 6N S OE-JESSICA/02-10-2025@13:14 Img Loc: JESSICA-ULTRASOUND [place] Service: [id number] SERVICE [address] [address] (Case [id number] COMPLETE) US EXTREMITY VEINS BILAT (DVT) (US Detailed) CPT:13310 Reason for Study: dx with PE Clinical History: Report Status: Verified Date Reported: FEB 10, 2025 Date Verified: FEB 10, 2025 Dynamics Ax Solution Architect E-Sig:/ES/David Pastrana MD Report: CASE #: [id number] DATE:02/10/2025 12:51 PM CLINICAL HISTORY:dx with PE [...] verification. Dictated by Chastity Mantilla M.D. (Diagnostic Postal Mail Carrier). IDavid, have reviewed the images and report and concur with these findings. Primary Interpreting Staff: David Pastrana MD, Radiologist (Dynamics Ax Solution Architect) Primary Interpreting Resident: Chastity Mantilla MD, Resident Physician /DAVID WILCOX [facility] Feb 09, 2025 03:[address] PE CHEST W/3D: JOSE MARIA WHITE [id number] -1945 M Exm Date: FEB 09, 2025@15:10 Req Phys: CHINO LEONG I Pat Loc: [address] [facility]/02-09-2025@16:39 [facility] [place] Loc: JESSICA-CT IMAGING JESSICA Service: Unknown [facility], [address] [place] [address] (Case [id number] COMPLETE) CT THORAX W/CONT (PE) (CT Detailed) CPT:05050 Contrast Media : unspecified contrast media Reason for Study: syncope, abormanl CXR Clinical History: Responsible Attending: Mariam Attending Contact Number: [id number] Resident Contact Number: syncope, abormanl CXR Allergies listed in CPRS chart: PENICILLIN, TETRACYCLINE, NEOSPORIN, CELEBREX, SIMVASTATIN Creatinine: CREATININE 0.96 mg/dL 02/09/2025 11:31 /eGFR: STL EGFR (within one year). CREATININE 0.96 mg/dL (02/09/25 11:31) Wt: 273.5 lb [124.06 kg] (09/10/2023 13:16) History of: Renal failure, chronic or acute renal disease: NO Report Status: Verified Date Reported: FEB 09, 2025 Date Verified: FEB 09, 2025 Dynamics Ax Solution Architect E-Sig:/ES/REA MARLEY Report: CASE #: [id number] DATE:02/09/2025 4:08 PM CLINICAL HISTORY:syncope, abormanl CXR [...] confirmation. Dictated by Jamal Chiu M.D. (Diagnostic Postal Mail Carrier). I, Rea Marley, have reviewed the images and report and concur with these findings. Primary Interpreting Staff: REA MARLEY, Staff Physician (Dynamics Ax Solution Architect) Primary Interpreting Resident: JAMAL CHIU, Resident Physician /[facility]A [facility] Feb 09, 2025 01:[address] HEAD W/O CONT: JOSE MARIA WHITE [id number] -1945 M Exm Date: FEB 09, 2025@13:01 Req Phys: CHINO LEONG Loc: JESSICA-EMERGENCY DEPT 2ND SHIFT (R Img Loc: JESSICA-CT IMAGING JESSICA Service: [address] [address] (Case [id number] COMPLETE) CT HEAD W/O CONT (CT Detailed) CPT:44999 Reason for Study: syncopal episode Clinical History: Responsible Attending: Mariam Attending Contact Number: [id number] Resident Contact Number: syncopal episode Allergies listed in CPRS chart: PENICILLIN, TETRACYCLINE, NEOSPORIN, CELEBREX, SIMVASTATIN Creatinine: CREATININE 0.90 mg/dL 08/07/2024 14:00 /eGFR: STL EGFR (within one year). CREATININE 0.90 mg/dL (08/07/24 14:00) Wt: 273.5 lb [124.06 kg] (09/10/2023 13:16) History of: Renal failure, chronic or acute renal disease: NO Report Status: Verified Date Reported: FEB 09, 2025 Date Verified: FEB 09, 2025 Dynamics Ax Solution Architect E-Sig:/ES/REA MARLEY Report: CASE #: [id number] DATE:02/09/2025 1:35 PM CLINICAL HISTORY:syncopal episode TECHNIQUE: [...] process. Dictated by Jamal Chiu M.D. (Diagnostic Postal Mail Carrier). I, Rea Marley, have reviewed the images and report and concur with these findings. Primary Interpreting Staff: REA MARLEY, Staff Physician (Dynamics Ax Solution Architect) Primary Interpreting Resident: JAMAL CHIU Resident Physician /REA [facility] Feb 09, 2025 11:32 AM CHEST PORTABLE: JOSE MARIA WHITE [id number] -1945 M Exm Date: FEB 09, 2025@11:32 Req Phys: KESHIA HUYNH Loc: JESSICA-EMERGENCY DEPT 2ND SHIFT (R Img Loc: -MAIN RADIOLOGY SUITE Service: [facility], [facility] [address] [place] [address] (Case [id number] COMPLETE) CHEST PORTABLE (RAD Detailed) CPT:63328 Proc Modifiers : Portable Reason for Study: hypotension Clinical History: Report Status: Verified Date Reported: FEB 09, 2025 Date Verified: FEB 09, 2025 Dynamics Ax Solution Architect E-Sig:/ES/David Pastrana MD Report: CASE [id number]. AP portable view chest. COMPARISON: FINDINGS: Bilateral [...] effusion. Dictated by Jamal Chiu M.D. (Diagnostic Postal Mail Carrier). I, David Pastrana, have reviewed the images and report and concur with these findings. Primary Interpreting Staff: David Pastrana MD, Radiologist (Dynamics Ax Solution Architect) Primary Interpreting Resident: JAMAL CHIU, Resident Physician /[facility] Pathology Reports: +/- 30 days [...] the Encounter. The data comes from all [facility] facilities. Date/Time Pathology Report Provider Source Feb 09, 2025 12:20 PM LR MICROBIOLOGY RE PORT: Accession [UID]: [id number] [[id number]] Received: Feb 09, 2025@12:29 Collection sample: B D BLD. BOTTLE Collection date: Feb 09, 2025 12:20 Site/Specimen: BLOOD Provider: ANNIE ARGUETA Test(s) ordered: BLOOD CULT (SET 1)............ completed: Feb 15, 2025 12:44 * BACTERIOLOGY FINAL REPORT => Feb 15, 2025 12:46 [facility] CODE: [id number] Bacteriology Remark(s): 02/10/25 CMG CULTURE IS NEGATIVE TO DATE, ALL POSITIVES ARE ROUTINELY CALLED. Culture shows NO GROWTH IN 6 DAYS. 02/15/25 CED =--=--=--=--=--=--=--=--=--=- -=--=--=--=--=--=--=--=--=--= --=--=--=--=--=--=-- Performing Laboratory: Bacteriology Report [facility]: [facility] CLIA# [id number] [address] [facility] [address] [place] [address] Bact Report Remark Performed By: [facility] [address] [facility] CLIA# [id number] [address] [facility] [address] [place] [address] [facility] Feb 09, 2025 12:15 PM LR MICROBIOLOGY RE PORT: Accession [UID]: [id number] [[id number]] Received: Feb 09, 2025@12:29 Collection sample: B D BLD. BOTTLE (SET 2)Collection date: Feb 09, 2025 12:15 Site/Specimen: BLOOD Provider: ANNIE ARGUETA T Test(s) ordered: BLOOD CULT (SET 2)............ completed: Feb 15, 2025 12:45 * BACTERIOLOGY FINAL REPORT => Feb 15, 2025 12:46 TECH CODE: [id number] Bacteriology Remark(s): 02/10/25 CMG CULTURE IS NEGATIVE TO DATE, ALL POSITIVES ARE ROUTINELY CALLED. Culture shows NO GROWTH IN 6 DAYS. 02/15/25 CED =--=--=--=--=--=--=--=--=--=- -=--=--=--=--=--=--=--=--=--= --=--=--=--=--=--=-- Performing Laboratory: Bacteriology Report Per[facility]: [facility] CLIA# [id number] [address] [facility] [address] [place] [address] Bact Report Remark Performed By: [facility] CLIA# [id number] [address] [facility] [address] [place] [phone] [facility] Encounter Notes: All associated encounter notes This section contains the clinical notes associated to the Encounter. Date/Time Encounter Note(s) Provider Source Mar 10, 2025 03:31 PM ADDENDUM: LOCAL TITLE: Addendum STANDARD TITLE: ADDENDUM DATE OF NOTE: MAR 10, 2025@15:31:17 ENTRY DATE: MAR 10, 2025@15:31:19 AUTHOR: STU FABIAN EXP COSIGNER: URGENCY: STATUS: COMPLETED 3. Please add the needed indications/problems to the CPRS problem list to cover the use of: - DIVALPROEX 250MG 24HR (ER) SA TAB (Bipolar?) Will need to defer above Pharm D request to at upcoming visit:03/15/2025 13:30 [facility] GURU JACOBS. thank you. /cas/ STU FABIAN MD, MS Signed: 03/10/2025 15:32 Receipt Acknowledged By: 03/10/2025 16:16 /es/ ELIA BISHOP MD Staff Physician, Psychiatry --- Original Document --- 03/10/25 HB PHARMACY INITIAL ASSESSMENT STL: [facility] Quarterly Medication Review ------ JOSE MARIA WHITE SOHAM who is 80 years of age has had current medications reviewed with the following notations as part of quarterly medication review for [facility]. PMH: 1) Diabetes Mellitus Type 2 ([facility] [id number]) 2) Diabetic neuropathy 3) HTN - Hypertension (SCT [id number]) 4) Lumbar radiculopathy 5) Migraine without aura 6) Sarcoidosis 7) GERD - Gastro-Esophageal Reflux Disease (SCT [id number]) 8) Burn of foot 9) Anxiety ([facility] [id number]) 10) Chronic Post-Traumatic Stress Disorder ([facility] [id number]) 11) Exposure to potentially hazardous substance 12) Pulmonary embolism 13) Arrhythmia 14) Obesity 15) Incontinence 16) Anemia ([facility] [id number]) 17) Cirrhosis - Non-Alcoholic ([facility] [id number]) 18) Oedema 19) Decreased vision Allergies/ADR: PENICILLIN, TETRACYCLINE, NEOSPORIN, CELEBREX, SIMVASTATIN VS: HT: 74 in [188.0 cm] (08/06/2023 15:06) WT: 280.0 lb [127.01 kg] (02/09/2025 16:11) Patient Weight History - Last Four 1. 280.0 lbs. / 127.0 kg. on FEB 09, 2025@16:11 2. 273.5 lbs. / 124.1 kg. on SEP 10, 2023@13:16:02 3. 282.0 lbs. / 127.9 kg. on AUGUST 06, 2023@15:49:45 4. 259.0 lbs. / 117.5 kg. on JUN 05, 2023@13:31:05 BMI: 36.0 BP: 138/80 (03/08/2025 12:00) HR: 79 (03/08/2025 12:00) RR: 18 (03/08/2025 12:00) PAIN: 0 (03/08/2025 12:00) MEDICATIONS: Active and Recently Outpatient Medications (including Supplies): Active Outpatient Medications Status 1) ACCU-CHEK GUIDE (GLUCOSE) TEST STRIP USE 1 STRIP FOR BLOOD ACTIVE TEST TWICE A DAY ALTERNATING TIMES EACH DAY *STABLE INSULIN THERAPY* Jun Indication: FOR BLOOD SUGAR MONITORING 2) ALCOHOL PREP PAD USE/APPLY PAD TO AFFECTED AREA(S) TWO TIMES ACTIVE A DAY BEFORE MEALS Indication: FOR SKIN CLEANSING 3) APIXABAN 5MG TAB TAKE ONE TABLET BY MOUTH TWICE A DAY ACTIVE Indication: FOR ANTICOAGULATION 4) BRIEF,BARIATRIC UNDERWEAR XXX-LG [...] FROM ALL MEDS. Indication: FOR PAIN 7) DIVALPROEX 250MG 24HR (ER) SA TAB TAKE TWO TABLETS BY MOUTH ACTIVE ONCE A DAY Indication: FOR BIPOLAR DISORDER 8) DRESSING,MOISTURE WICKING W/AG [id number] USE/APPLY ACTIVE DRESSING(S) TO AFFECTED AREA(S) TWICE DAILY NEEDED (EXTERNAL USE ONLY) Indication: FOR WOUND CARE 9) INSULIN,GLARGINE 100 UNT/ML 3ML SOLOSTAR INJECT 23 UNITS ACTIVE UNDER THE SKIN ONCE A DAY ADMINISTER AT SAME TIME EACH DAY DIRECTED. DISCARD ANY OPEN CARTRIDGE AFTER 28 DAYS. Indication: FOR DIABETES 10) LANCET,SOFTCLIX USE LANCET FOR BLOOD TEST TWICE A DAY USE ACTIVE DIRECTED. Indication: FOR BLOOD SUGAR MONITORING 11) LIDOCAINE 5% PATCH APPLY 1 PATCH TO SKIN SITE ONCE A DAY ACTIVE APPLY PATCH AND PRESS FIRMLY FOR 10-15 SECONDS. KEEP ON FOR 12 HOURS THEN REMOVE PATCH FOR 12 HOURS. Indication: FOR LOCAL ANESTHESIA 12) METFORMIN HCL 500MG 24HR SA TAB TAKE TWO TABLETS BY MOUTH ACTIVE (S) TWICE A DAY TAKE WITH FOOD. AVOID ALCOHOL. DISCONTINUE BEFORE GETTING XRAY DYE. Indication: FOR DIABETES 13) NALOXONE HCL 4MG/SPRAY SOLN NASAL SPRAY USE 1 SPRAY (4MG) ACTIVE INTO ONE NOSTRIL ONLY ONE-TIME DO NOT PRIME NASAL SPRAY. SPRAY ONE DOSE IN ONE NOSTRIL, GIVE ADDITIONAL DOSE IF PATIENT DOES NOT START BREATHING WITHIN 2-3 MINUTES OR STOPS BREATHING AGAIN. CALL 911. IF USED, NOTIFY PROVIDER. Indication: FOR OPIOID OVERDOSE 14) PREGABALIN 75MG ORAL CAP TAKE ONE CAPSULE BY MOUTH TWICE A ACTIVE (S) DAY *MAY CAUSE DROWSINESS* Indication: FOR NERVE PAIN 15) PSYLLIUM ORAL PWD MIX AND DRINK 1 TABLESPOONFUL BY MOUTH ACTIVE ONCE A DAY MIX IN GLASS OF WATER/JUICE. FLAVOR SUBSTITUTIONS MAY/WILL OCCUR AND SPECIFIC VARIETIES WILL NOT BE PROVIDED. Indication: FOR FIBER SUPPLEMENTATION 16) SERTRALINE HCL 50MG TAB TAKE ONE-HALF TABLET BY MOUTH EVERY ACTIVE MORNING FOR 4 DAYS, THEN TAKE ONE TABLET EVERY MORNING FOR 15 DAYS, THEN TAKE ONE AND ONE-HALF TABLETS EVERY MORNING Indication: FOR DEPRESSION 17) UNDERPAD,BED LARGE EXTRA ABSORBENT USE/APPLY 1 PAD TO ACTIVE AFFECTED AREA(S) THREE TIMES A DAY NEEDED (EXTERNAL USE ONLY) Indication: FOR INCONTINENCE Pending Outpatient Medications Status 1) CHOLECALCIF 50MCG (D3-2,000UNIT) TAB TAKE ONE TABLET BY PENDING MOUTH ONCE A DAY Indication: FOR VITAMIN D DEFICIENCY 2) CYANOCOBALAMIN 1000MCG TAB TAKE ONE TABLET BY MOUTH ONCE A PENDING DAY Indication: FOR VITAMIN B12 SUPPLEMENTATION 3) FERROUS SULFATE 325MG TAB TAKE ONE TABLET BY MOUTH EVERY PENDING OTHER DAY Indication: FOR IRON DEFICIENCY ANEMIA 4) FOLIC ACID 1MG TAB TAKE ONE TABLET BY MOUTH ONCE A DAY PENDING Indication: FOR FOLIC ACID SUPPLEMENTATION Active Non-VA Medications Status 1) Non-VA ASPIRIN 81MG EC TAB 81MG BY MOUTH ONCE A DAY ACTIVE 2) Non-VA LANSOPRAZOLE (PREVACID) 15MG EC CAP 15MG BY MOUTH ACTIVE ONCE A DAY 23 Total Medications ADHERENCE: - Compliance to be determined per [facility] RN note, medications set up by caregiver/pt OTHER RX/OTC/HERBALS: - None noted LOOK-ALIKE/SOUND-ALIKE: - None noted HIGH-RISK MEDICATIONS: - Apixaban, Sertraline, Pregabalin, Insulin Glargine BEERS CRITERIA MEDICATIONS: - Sertraline, Lansoprazole, Pregabalin POTENTIAL SIGNIFICANT DRUG-DRUG INTERACTIONS: - Codeine-Apap/Divalproex/Pre gabalin: Increased risk of DIRECTOR SUPPLY depressant effects; monitor closely - Apixaban/Divalproex: May decrease therapeutic effects of Apixaban; monitor closely - Apixaban/Aspirin/Sertraline : Increased risk of bleeding; monitor closely POTENTIAL SIGNIFICANT DRUG-FOOD INTERACTIONS: - Apixaban/Grapefruit Juice: Increased risk for bleeding; avoid use - Codeine-Apap/Grapefruit Juice: Increased serum concentration of Codeine; avoid use - Sertraline/Grapefruit Juice: Increased serum concentration of Sertraline; avoid use LABS: ----- SODIUM 140 mEq/L 03/08/2025 12:00 POTASSIUM 4.2 mEq/L 03/08/2025 12:00 CHLORIDE 108 H mEq/L 03/08/2025 12:00 UREA NITROGEN 15.6 mg/dL 03/08/2025 12:00 CREATININE 0.78 mg/dL 03/08/2025 12:00 CALCIUM 8.4 mg/dL 03/08/2025 12:00 PROTEIN 5.8 L g/dL 03/08/2025 12:00 ALBUMIN 2.9 L g/dL 03/08/2025 12:00 ALKALINE PHOSPHATASE 109 U/L 03/08/2025 12:00 ALT/SGPT 11 U/L 03/08/2025 12:00 AST/SGOT 29 U/L 03/08/2025 12:00 TOTAL BILIRUBIN 0.5 mg/dL 03/08/2025 12:00 CARBON DIOXIDE 24 mEq/L 03/08/2025 12:00 GLUCOSE 166 H mg/dL 02/09/2025 11:31 EGFR (CKD-EPI 2020) 90.2 03/08/2025 12:00 CYSTATIN C 03/08/2025@1200 1.66 HGB 11.0 L g/dL 03/08/2025 12:00 HCT 34.7 L % 03/08/2025 12:00 PLT 103 L 10*3/uL 03/08/2025 12:00 TRIGLYCERIDE 138 mg/dL 03/08/2025 12:00 CHOLESTEROL 136 mg/dL 03/08/2025 12:00 HDL(New) 38 L mg/dL 03/08/2025 12:00 CALCULATED LDL 70 mg/dL 03/08/2025 12:00 No DIRECT LDL EO data found HGA1C 6.6 % NGSP 03/08/2025 12:00 TSH 0.702 uIU/mL 03/08/2025 12:00 VITAMIN D, 25-HYDROXY 28.3 L ng/mL 03/08/2025 12:00 VITAMIN D, 25-HYDROXY 36.1 ng/mL 08/07/2024 14:00 B12 592 pg/mL 03/08/2025 12:00 FOLATE (STL-MA) 4.8 L ng/mL 03/08/2025 12:00 IRON SATURATION 25 %SAT 03/08/2025 12:00 IRON 47 L ug/dL 03/08/2025 12:00 TIBC 190 L ug/dL 03/08/2025 12:00 Estimated CrCl: 83.5ml/min (modified cockcroft-gault, ABW, Cr=1) 03/08/25: --------- Creatinine: 0.78 Cystatin C: 1.66 CKD-EPI creatinine-cystatin equation (2020) = 57ml/min ASSESSMENT Medication regimen assessed by [facility] pharmacist for appropriate indications/doses, duplications in therapy, drug-drug/drug-food interactions, potentially clinically significant adverse effects, polypharmacy, fall risk potential, and other monitoring parameters as clinically indicated. Medication adherence assessed. IMMUNIZATIONS: Due for the following, please offer Covid-19 Vaccine Eligible, per shared clinical decision-making Seasonal Influenza Vaccine Eligible, Due Now RSV Eligible, Due Now PNEUMOCOCCAL CONJUGATE PCV20, PO* Eligible, Due Now TDAP Eligible, Due Now Herpes Zoster (Shingrix) Vaccine Eligible, Due Now COVID-19 (MODERNA), MRNA, LNP-S,* 2 06/30/2020 IZG:CA IIS COVID-19 (MODERNA), MRNA, LNP-S,* 1 06/04/2020 IZG:CA IIS FALLS: ------ Fall Risk Assessment (per 02/22/25 [facility] PT note): High fall risk, score 75 History of Falls: YES NO Medications that may contribute to an increase in fall risk: -Carvedilol, Codeine/Apap, Divalproex, Insulin glargine, Naloxone, Pregabalin, Sertraline Medications that increase risk of injury with fall: -Apixaban, NonVA Aspirin RENAL DOSING ASSESSMENT Patient has reduced renal function with an estimated creatinine clearance of 57ml/min, therefore at risk of accumulation of renally cleared drugs. Current medications are dosed appropriately for the patient's renal function. Monitor for the addition of renally cleared medications and adjust doses as appropriate. DIABETES: --------- DM medications: -Metformin SA 1000mg bid -Insulin Glargine 23units daily (-) Hypoglycemia sxs or values <80 mg/dl (-) Hyperglycemia sxs HGA1C 6.6 % NGSP 03/08/2025 12:00 GLUCOSE 166 H mg/dL 02/09/2025 11:31 CREATININE 0.78 mg/dL 03/08/2025 12:00 EGFR (CKD-EPI 2020) 90.2 03/08/2025 12:00 SGOT:29 U/L (03/08/25 12:00) SGPT:11 U/L (03/08/25 12:00) -Controlled to A1c goal of <8%, FBG 80-160, post-prandial BG <210 due to mental CVD and health condition per VA/DoD guidelines -Monitor for s/sx of hypoglycemia -Continue to encourage positive lifestyle modifications HYPERLIPIDEMIA: Anti-lipemic agents: None noted (+) ADR to anti-lipemic agents: Simvastatin TRIGLYCERIDE 138 mg/dL 03/08/2025 12:00 CHOLESTEROL 136 mg/dL 03/08/2025 12:00 HDL(New) 38 L mg/dL 03/08/2025 12:00 CALCULATED LDL 70 mg/dL 03/08/2025 12:00 SGOT:29 U/L (03/08/25 12:00) SGPT:11 U/L (03/08/25 12:00) CREATININE 0.78 mg/dL 03/08/2025 12:00 EGFR (CKD-EPI 2020) 90.2 03/08/2025 12:00 -Uncontrolled to goal of treatment with moderate-intensity statin per VA/DoD guidelines. Reasonable to not initiate given age and statin intolerance. Monitor lipid panel routinely. Continue to monitor. -Continue to encourage positive lifestyle modifications HYPERTENSION: HTN medications: -Carvedilol 12.5mg bid (-) hypotension sxs or values <90/60 SODIUM 140 mEq/L 03/08/2025 12:00 POTASSIUM 4.2 mEq/L 03/08/2025 12:00 CHLORIDE 108 H mEq/L 03/08/2025 12:00 CALCIUM 8.4 mg/dL 03/08/2025 12:00 CREATININE 0.78 mg/dL 03/08/2025 12:00 EGFR (CKD-EPI 2020) 90.2 03/08/2025 12:00 SGOT:29 U/L (03/08/25 12:00) SGPT:11 U/L (03/08/25 12:00) Average BP readings: 03/08/2025 12:00 138/80 02/10/2025 12:43 117/69 02/10/2025 08:38 142/81 -Mostly controlled to BP <140/90 mmHg per VA/DoD guidelines d/t DM and >60yo -Monitor for s/sx of hypotension -Continue to encourage positive lifestyle modifications ANTICOAGULATION: Indication: DVT/PE AC agent: Apixaban Anticipated duration: At least 3-6 months HAS-BLED = 3 [HTN, age>65, ASA] HGB 11.0 L g/dL 03/08/2025 12:00 HCT 34.7 L % 03/08/2025 12:00 PLT 103 L 10*3/uL 03/08/2025 12:00 CREATININE 0.78 mg/dL 03/08/2025 12:00 EGFR (CKD-EPI 2020) 90.2 03/08/2025 12:00 ALT/SGPT 11 U/L 03/08/2025 12:00 AST/SGOT 29 U/L 03/08/2025 12:00 Weight: 280.0 lb [127.01 kg] (02/09/2025 16:11) -H/H/Plts low but stable. Scr stable and crcl supports safe continuation of current doac therapy. -Pt monitored via DOAC Population Management Dashboard. See latest [facility] note for details. -Apixaban dose appropriate for renal function, weight, age and indication -Apixaban last filled x 30 days on 03/03/25 with 1 refill remaining. Will suspend next refill -------- PLAN/RECOMMENDATIONS: -------- 1. Please consider ordering the following labs: Cystatin C: Consider to more accurately assess current renal function Folate: Consider repeat routinely, last was low at 4.8 on 03/08/25; supplement ordered Iron panel: Consider repeat routinely, last was low iron 47/TIBC 190 on 03/08/25; supplement ordered Vitamin D: Low at 28.3 on 03/08/25; supplement ordered 2. IMMUNIZATIONS: Due for the following, please offer Vet has persistent refusal history [id number] Covid-19 Vaccine Eligible, per shared clinical decision-making Seasonal Influenza Vaccine Eligible, Due Now RSV Eligible, Due Now PNEUMOCOCCAL CONJUGATE PCV20, PO* Eligible, Due Now TDAP Eligible, Due Now Herpes Zoster (Shingrix) Vaccine Eligible, Due Now 3. Please add the needed indications/problems to the CPRS problem list to cover the use of: - DIVALPROEX 250MG 24HR (ER) SA TAB (Bipolar?) - PREGABALIN 75MG ORAL CAP (Neuropathy?) - PSYLLIUM ORAL PWD (Constipation?) - SERTRALINE HCL 50MG TAB (Depression?) 4. /NO REFILLS REMAINING: Please re-issue if deemed appropriate -- NEEDLE,PEN 31G,5MM SUMATRIPTAN SUCCINATE 50MG TAB CARVEDILOL 25MG TAB No refills remaining CODEINE 30/ACETAMINOPHEN 300MG TAB No refills remaining LIDOCAINE 5% PATCH No refills remaining SERTRALINE HCL 50MG TAB No refills remaining 5. Please assess adherence of the following medications: Last filled at least > 30 days ago LANCET,SOFTCLIX PSYLLIUM ORAL PWD 6. Will continue to review quarterly. Time spent: > 60 minutes PBM PharmD Pharmacotherapy Rem V12: Address adherence FALLS PREVENTION Medication monitoring, no dosage change required, continue to monitor and assess Identify drug interaction Medication monitoring or diagnostic evaluation (e.g., other labs, EKG) Medication reconciliation (changes to active VA and non-VA medication lists to reconcile differences) No changes to medication lists made (medication review completed, no discrepancies identified) Order, recommend, and/or administer immunization(s) /cas/ Carina Vance PharmKaceyD, BCACP CLINICAL PHARMACIST SPECIALIST-[facility] Signed: 03/10/2025 15:25 Receipt Acknowledged By: * AWAITING SIGNATURE * HERO SHAFFER 03/10/2025 15:36 /es/ STU FABIAN MD, MS * AWAITING SIGNATURE * CÉSAR DORSEY KEVIN M [facility] Mar 10, 2025 08:14 AM PHARMACY NOTE: LOCAL TITLE: [facility] PHARMACY INITIAL ASSESSMENT STL STANDARD TITLE: PHARMACY NOTE DATE OF NOTE: MAR 10, 2025@08:14 ENTRY DATE: MAR 10, 2025@08:14:38 AUTHOR: CARINA VANCE COSIGNER: URGENCY: STATUS: COMPLETED [facility] PHARMACY INITIAL ASSESSMENT STL Has ADDENDA [facility] Quarterly Medication Review ------ JOSE MARIA WHITE SOHAM who is 80 years of age has had current medications reviewed with the following notations as part of quarterly medication review for [facility]. PMH: 1) Diabetes Mellitus Type 2 ([facility] [id number]) 2) Diabetic neuropathy 3) HTN - Hypertension ([facility] [id number]) 4) Lumbar radiculopathy 5) Migraine without aura 6) Sarcoidosis 7) GERD - Gastro-Esophageal Reflux Disease ([facility] [id number]) 8) Burn of foot 9) Anxiety ([facility] 28506112) 10) Chronic Post-Traumatic Stress Disorder ([facility] [id number]) 11) Exposure to potentially hazardous substance 12) Pulmonary embolism 13) Arrhythmia 14) Obesity 15) Incontinence 16) Anemia ([facility] [id number]) 17) Cirrhosis - Non-Alcoholic ([facility] [id number]) 18) Oedema 19) Decreased vision Allergies/ADR: PENICILLIN, TETRACYCLINE, NEOSPORIN, CELEBREX, SIMVASTATIN VS: HT: 74 in [188.0 cm] (08/06/2023 15:06) WT: 280.0 lb [127.01 kg] (02/09/2025 16:11) Patient Weight History - Last Four 1. 280.0 lbs. / 127.0 kg. on FEB 09, 2025@16:11 2. 273.5 lbs. / 124.1 kg. on SEP 10, 2023@13:16:02 3. 282.0 lbs. / 127.9 kg. on AUGUST 06, 2023@15:49:45 4. 259.0 lbs. / 117.5 kg. on JUN 05, 2023@13:31:05 BMI: 36.0 BP: 138/80 (03/08/2025 12:00) HR: 79 (03/08/2025 12:00) RR: 18 (03/08/2025 12:00) PAIN: 0 (03/08/2025 12:00) MEDICATIONS: Active and Recently Outpatient Medications (including Supplies): Active Outpatient Medications Status 1) ACCU-CHEK GUIDE (GLUCOSE) TEST STRIP USE 1 STRIP FOR BLOOD ACTIVE TEST TWICE A DAY ALTERNATING TIMES EACH DAY *STABLE INSULIN THERAPY* Jun Indication: FOR BLOOD SUGAR MONITORING 2) ALCOHOL PREP PAD USE/APPLY PAD TO AFFECTED AREA(S) TWO TIMES ACTIVE A DAY BEFORE MEALS Indication: FOR SKIN CLEANSING 3) APIXABAN 5MG TAB TAKE ONE TABLET BY MOUTH TWICE A DAY ACTIVE Indication: FOR ANTICOAGULATION 4) BRIEF,BARIATRIC UNDERWEAR XXX-LG [...] FROM ALL MEDS. Indication: FOR PAIN 7) DIVALPROEX 250MG 24HR (ER) SA TAB TAKE TWO TABLETS BY MOUTH ACTIVE ONCE A DAY Indication: FOR BIPOLAR DISORDER 8) DRESSING,MOISTURE WICKING W/AG [id number] USE/APPLY ACTIVE DRESSING(S) TO AFFECTED AREA(S) TWICE DAILY NEEDED (EXTERNAL USE ONLY) Indication: FOR WOUND CARE 9) INSULIN,GLARGINE 100 UNT/ML 3ML SOLOSTAR INJECT 23 UNITS ACTIVE UNDER THE SKIN ONCE A DAY ADMINISTER AT SAME TIME EACH DAY DIRECTED. DISCARD ANY OPEN CARTRIDGE AFTER 28 DAYS. Indication: FOR DIABETES 10) LANCET,SOFTCLIX USE LANCET FOR BLOOD TEST TWICE A DAY USE ACTIVE DIRECTED. Indication: FOR BLOOD SUGAR MONITORING 11) LIDOCAINE 5% PATCH APPLY 1 PATCH TO SKIN SITE ONCE A DAY ACTIVE APPLY PATCH AND PRESS FIRMLY FOR 10-15 SECONDS. KEEP ON FOR 12 HOURS THEN REMOVE PATCH FOR 12 HOURS. Indication: FOR LOCAL ANESTHESIA 12) METFORMIN HCL 500MG 24HR SA TAB TAKE TWO TABLETS BY MOUTH ACTIVE (S) TWICE A DAY TAKE WITH FOOD. AVOID ALCOHOL. DISCONTINUE BEFORE GETTING XRAY DYE. Indication: FOR DIABETES 13) NALOXONE HCL 4MG/SPRAY SOLN NASAL SPRAY USE 1 SPRAY (4MG) ACTIVE INTO ONE NOSTRIL ONLY ONE-TIME DO NOT PRIME NASAL SPRAY. SPRAY ONE DOSE IN ONE NOSTRIL, GIVE ADDITIONAL DOSE IF PATIENT DOES NOT START BREATHING WITHIN 2-3 MINUTES OR STOPS BREATHING AGAIN. CALL 911. IF USED, NOTIFY PROVIDER. Indication: FOR OPIOID OVERDOSE 14) PREGABALIN 75MG ORAL CAP TAKE ONE CAPSULE BY MOUTH TWICE A ACTIVE (S) DAY *MAY CAUSE DROWSINESS* Indication: FOR NERVE PAIN 15) PSYLLIUM ORAL PWD MIX AND DRINK 1 TABLESPOONFUL BY MOUTH ACTIVE ONCE A DAY MIX IN GLASS OF WATER/JUICE. FLAVOR SUBSTITUTIONS MAY/WILL OCCUR AND SPECIFIC VARIETIES WILL NOT BE PROVIDED. Indication: FOR FIBER SUPPLEMENTATION 16) SERTRALINE HCL 50MG TAB TAKE ONE-HALF TABLET BY MOUTH EVERY ACTIVE MORNING FOR 4 DAYS, THEN TAKE ONE TABLET EVERY MORNING FOR 15 DAYS, THEN TAKE ONE AND ONE-HALF TABLETS EVERY MORNING Indication: FOR DEPRESSION 17) UNDERPAD,BED LARGE EXTRA ABSORBENT USE/APPLY 1 PAD TO ACTIVE AFFECTED AREA(S) THREE TIMES A DAY NEEDED (EXTERNAL USE ONLY) Indication: FOR INCONTINENCE Pending Outpatient Medications Status 1) CHOLECALCIF 50MCG (D3-2,000UNIT) TAB TAKE ONE TABLET BY PENDING MOUTH ONCE A DAY Indication: FOR VITAMIN D DEFICIENCY 2) CYANOCOBALAMIN 1000MCG TAB TAKE ONE TABLET BY MOUTH ONCE A PENDING DAY Indication: FOR VITAMIN B12 SUPPLEMENTATION 3) FERROUS SULFATE 325MG TAB TAKE ONE TABLET BY MOUTH EVERY PENDING OTHER DAY Indication: FOR IRON DEFICIENCY ANEMIA 4) FOLIC ACID 1MG TAB TAKE ONE TABLET BY MOUTH ONCE A DAY PENDING Indication: FOR FOLIC ACID SUPPLEMENTATION Active Non-VA Medications Status 1) Non-VA ASPIRIN 81MG EC TAB 81MG BY MOUTH ONCE A DAY ACTIVE 2) Non-VA LANSOPRAZOLE (PREVACID) 15MG EC CAP 15MG BY MOUTH ACTIVE ONCE A DAY 23 Total Medications ADHERENCE: - Compliance to be determined per HB RN note, medications set up by caregiver/pt OTHER RX/OTC/HERBALS: - None noted LOOK-ALIKE/SOUND-ALIKE: - None noted HIGH-RISK MEDICATIONS: - Apixaban, Sertraline, Pregabalin, Insulin Glargine BEERS CRITERIA MEDICATIONS: - Sertraline, Lansoprazole, Pregabalin POTENTIAL SIGNIFICANT DRUG-DRUG INTERACTIONS: - Codeine-Apap/Divalproex/Pre gabalin: Increased risk of DIRECTOR [employer] depressant effects; monitor closely - Apixaban/Divalproex: May decrease therapeutic effects of Apixaban; monitor closely - Apixaban/Aspirin/Sertraline : Increased risk of bleeding; monitor closely POTENTIAL SIGNIFICANT DRUG-FOOD INTERACTIONS: - Apixaban/Grapefruit Juice: Increased risk for bleeding; avoid use - Codeine-Apap/Grapefruit Juice: Increased serum concentration of Codeine; avoid use - Sertraline/Grapefruit Juice: Increased serum concentration of Sertraline; avoid use LABS: ----- SODIUM 140 mEq/L 03/08/2025 12:00 POTASSIUM 4.2 mEq/L 03/08/2025 12:00 CHLORIDE 108 H mEq/L 03/08/2025 12:00 UREA NITROGEN 15.6 mg/dL 03/08/2025 12:00 CREATININE 0.78 mg/dL 03/08/2025 12:00 CALCIUM 8.4 mg/dL 03/08/2025 12:00 PROTEIN 5.8 L g/dL 03/08/2025 12:00 ALBUMIN 2.9 L g/dL 03/08/2025 12:00 ALKALINE PHOSPHATASE 109 U/L 03/08/2025 12:00 ALT/SGPT 11 U/L 03/08/2025 12:00 AST/SGOT 29 U/L 03/08/2025 12:00 TOTAL BILIRUBIN 0.5 mg/dL 03/08/2025 12:00 CARBON DIOXIDE 24 mEq/L 03/08/2025 12:00 GLUCOSE 166 H mg/dL 02/09/2025 11:31 EGFR (CKD-EPI 2020) 90.2 03/08/2025 12:00 CYSTATIN C 03/08/2025@1200 1.66 HGB 11.0 L g/dL 03/08/2025 12:00 HCT 34.7 L % 03/08/2025 12:00 PLT 103 L 10*3/uL 03/08/2025 12:00 TRIGLYCERIDE 138 mg/dL 03/08/2025 12:00 CHOLESTEROL 136 mg/dL 03/08/2025 12:00 HDL(New) 38 L mg/dL 03/08/2025 12:00 CALCULATED LDL 70 mg/dL 03/08/2025 12:00 No DIRECT LDL EO data found HGA1C 6.6 % NGSP 03/08/2025 12:00 TSH 0.702 uIU/mL 03/08/2025 12:00 VITAMIN D, 25-HYDROXY 28.3 L ng/mL 03/08/2025 12:00 VITAMIN D, 25-HYDROXY 36.1 ng/mL 08/07/2024 14:00 B12 592 pg/mL 03/08/2025 12:00 FOLATE (STL-MA) 4.8 L ng/mL 03/08/2025 12:00 IRON SATURATION 25 %SAT 03/08/2025 12:00 IRON 47 L ug/dL 03/08/2025 12:00 TIBC 190 L ug/dL 03/08/2025 12:00 Estimated CrCl: 83.5ml/min (modified cockcroft-gault, ABW, Cr=1) 03/08/25: --------- Creatinine: 0.78 Cystatin C: 1.66 CKD-EPI creatinine-cystatin equation (2020) = 57ml/min ASSESSMENT Medication regimen assessed by [facility] pharmacist for appropriate indications/doses, duplications in therapy, drug-drug/drug-food interactions, potentially clinically significant adverse effects, polypharmacy, fall risk potential, and other monitoring parameters as clinically indicated. Medication adherence assessed. IMMUNIZATIONS: Due for the following, please offer Covid-19 Vaccine Eligible, per shared clinical decision-making Seasonal Influenza Vaccine Eligible, Due Now RSV Eligible, Due Now PNEUMOCOCCAL CONJUGATE PCV20, PO* Eligible, Due Now TDAP Eligible, Due Now Herpes Zoster (Shingrix) Vaccine Eligible, Due Now COVID-19 (MODERNA), MRNA, LNP-S,* 2 06/30/2020 IZ:[facility] IIS COVID-19 (MODERNA), MRNA, LNP-S,* 1 06/04/2020 IZ:[facility] IIS FALLS: ------ Fall Risk Assessment (per 02/22/25 [facility] PT note): High fall risk, score 75 History of Falls: YES NO Medications that may contribute to an increase in fall risk: -Carvedilol, Codeine/Apap, Divalproex, Insulin glargine, Naloxone, Pregabalin, Sertraline Medications that increase risk of injury with fall: -Apixaban, NonVA Aspirin RENAL DOSING ASSESSMENT Patient has reduced renal function with an estimated creatinine clearance of 57ml/min, therefore at risk of accumulation of renally cleared drugs. Current medications are dosed appropriately for the patient's renal function. Monitor for the addition of renally cleared medications and adjust doses as appropriate. DIABETES: --------- DM medications: -Metformin SA 1000mg bid -Insulin Glargine 23units daily (-) Hypoglycemia sxs or values <80 mg/dl (-) Hyperglycemia sxs HGA1C 6.6 % NGSP 03/08/2025 12:00 GLUCOSE 166 H mg/dL 02/09/2025 11:31 CREATININE 0.78 mg/dL 03/08/2025 12:00 EGFR (CKD-EPI 2020) 90.2 03/08/2025 12:00 SGOT:29 U/L (03/08/25 12:00) SGPT:11 U/L (03/08/25 12:00) -Controlled to A1c goal of <8%, FBG 80-160, post-prandial BG <210 due to mental CVD and health condition per VA/DoD guidelines -Monitor for s/sx of hypoglycemia -Continue to encourage positive lifestyle modifications HYPERLIPIDEMIA: Anti-lipemic agents: None noted (+) ADR to anti-lipemic agents: Simvastatin TRIGLYCERIDE 138 mg/dL 03/08/2025 12:00 CHOLESTEROL 136 mg/dL 03/08/2025 12:00 HDL(New) 38 L mg/dL 03/08/2025 12:00 CALCULATED LDL 70 mg/dL 03/08/2025 12:00 SGOT:29 U/L (03/08/25 12:00) SGPT:11 U/L (03/08/25 12:00) CREATININE 0.78 mg/dL 03/08/2025 12:00 EGFR (CKD-EPI 2020) 90.2 03/08/2025 12:00 -Uncontrolled to goal of treatment with moderate-intensity statin per VA/DoD guidelines. Reasonable to not initiate given age and statin intolerance. Monitor lipid panel routinely. Continue to monitor. -Continue to encourage positive lifestyle modifications HYPERTENSION: HTN medications: -Carvedilol 12.5mg bid (-) hypotension sxs or values <90/60 SODIUM 140 mEq/L 03/08/2025 12:00 POTASSIUM 4.2 mEq/L 03/08/2025 12:00 CHLORIDE 108 H mEq/L 03/08/2025 12:00 CALCIUM 8.4 mg/dL 03/08/2025 12:00 CREATININE 0.78 mg/dL 03/08/2025 12:00 EGFR (CKD-EPI 2020) 90.2 03/08/2025 12:00 SGOT:29 U/L (03/08/25 12:00) SGPT:11 U/L (03/08/25 12:00) Average BP readings: 03/08/2025 12:00 138/80 02/10/2025 12:43 117/69 02/10/2025 08:38 142/81 -Mostly controlled to BP <140/90 mmHg per VA/DoD guidelines d/t DM and >60yo -Monitor for s/sx of hypotension -Continue to encourage positive lifestyle modifications ANTICOAGULATION: Indication: DVT/PE AC agent: Apixaban Anticipated duration: At least 3-6 months HAS-BLED = 3 [HTN, age>65, ASA] HGB 11.0 L g/dL 03/08/2025 12:00 HCT 34.7 L % 03/08/2025 12:00 PLT 103 L 10*3/uL 03/08/2025 12:00 CREATININE 0.78 mg/dL 03/08/2025 12:00 EGFR (CKD-EPI 2020) 90.2 03/08/2025 12:00 ALT/SGPT 11 U/L 03/08/2025 12:00 AST/SGOT 29 U/L 03/08/2025 12:00 Weight: 280.0 lb [127.01 kg] (02/09/2025 16:11) -H/H/Plts low but stable. Scr stable and crcl supports safe continuation of current doac therapy. -Pt monitored via DOAC Population Management Dashboard. See latest [facility] note for details. -Apixaban dose appropriate for renal function, weight, age and indication -Apixaban last filled x 30 days on 03/03/25 with 1 refill remaining. Will suspend next refill -------- PLAN/RECOMMENDATIONS: -------- 1. Please consider ordering the following labs: Cystatin C: Consider to more accurately assess current renal function Folate: Consider repeat routinely, last was low at 4.8 on 03/08/25; supplement ordered Iron panel: Consider repeat routinely, last was low iron 47/TIBC 190 on 03/08/25; supplement ordered Vitamin D: Low at 28.3 on 03/08/25; supplement ordered 2. IMMUNIZATIONS: Due for the following, please offer Vet has persistent refusal history [id number] Covid-19 Vaccine Eligible, per shared clinical decision-making Seasonal Influenza Vaccine Eligible, Due Now RSV Eligible, Due Now PNEUMOCOCCAL CONJUGATE PCV20, PO* Eligible, Due Now TDAP Eligible, Due Now Herpes Zoster (Shingrix) Vaccine Eligible, Due Now 3. Please add the needed indications/problems to the CPRS problem list to cover the use of: - DIVALPROEX 250MG 24HR (ER) SA TAB (Bipolar?) - PREGABALIN 75MG ORAL CAP (Neuropathy?) - PSYLLIUM ORAL PWD (Constipation?) - SERTRALINE HCL 50MG TAB (Depression?) 4. /NO REFILLS REMAINING: Please re-issue if deemed appropriate -- NEEDLE,PEN 31G,5MM SUMATRIPTAN SUCCINATE 50MG TAB CARVEDILOL 25MG TAB No refills remaining CODEINE 30/ACETAMINOPHEN 300MG TAB No refills remaining LIDOCAINE 5% PATCH No refills remaining SERTRALINE HCL 50MG TAB No refills remaining 5. Please assess adherence of the following medications: Last filled at least > 30 days ago LANCET,SOFTCLIX PSYLLIUM ORAL PWD 6. Will continue to review quarterly. Time spent: > 60 minutes PBM PharmD Pharmacotherapy Rem V12: Address adherence FALLS PREVENTION Medication monitoring, no dosage change required, continue to monitor and assess Identify drug interaction Medication monitoring or diagnostic evaluation (e.g., other labs, EKG) Medication reconciliation (changes to active VA and non-VA medication lists to reconcile differences) No changes to medication lists made (medication review completed, no discrepancies identified) Order, recommend, and/or administer immunization(s) /cas/ Carina Vance, Pharm.D, BCACP CLINICAL PHARMACIST SPECIALIST-[facility] Signed: 03/10/2025 15:25 Receipt Acknowledged By: 03/11/2025 07:31 /es/ HERO SHAFFER REGISTERED NURSE 03/10/2025 15:36 /es/ STU FABIAN MD, MS 03/11/2025 08:48 /es/ CÉSAR DORSEY Supervisor [employer], [facility] 03/10/2025 ADDENDUM STATUS: COMPLETED 3. Please add the needed indications/problems to the CPRS problem list to cover the use of: - DIVALPROEX 250MG 24HR (ER) SA TAB (Bipolar?) Will need to defer above Pharm D request to at upcoming visit:03/15/2025 13:30 [facility] GURU JACOBS. thank you. /cas/ STU FABIAN MD, MS Signed: 03/10/2025 15:32 Receipt Acknowledged By: 03/10/2025 16:16 /es/ ELIA BISHOP MD Staff Physician, Psychiatry 03/10/2025 ADDENDUM STATUS: COMPLETED Correction:Please note the following correction -this is an initial review, no quarterly [facility] Initial Medication Review ------ CHRISTOPHERJOSE MARIA ROUSSEAU who is 80 years of age has had current medications reviewed with the following notations as part of initial medication review for [facility]. /cas/ Carina Vance, Pharm.D, BCACP CLINICAL PHARMACIST SPECIALIST-[facility] Signed: 03/10/2025 16:[address] [facility]
--- OUTSIDE RECORDS SUMMARY | 2025-03-11 06:30 | XMS_ITS ---
Author Name [facility] ([place] [facility] Address [address] [place] [address] Care Team Providers Care Lever Operator Name Role Phone GRACE QUINN Primary Care Provider UnavailKAYODE Marquez Primary Care Provider Unavail able ROSA CARDONA Unavailable Unavailable GABRIELLE QUINN Unavailable Unavailable ROBINSON DAWKINS Unavailable Unavailable CALVIN OSEI Unavailable Unavailable ABDON PCEK Unavailable Unavailable CHINYERE DOMINGUEZ Unavailable Unavailable VILMA CEDILLO Unavailable Unavailable AUSTIN HOWARD Unavailable Unavailable ARMAAN FABIAN Primary Care Provider UnavailCÉSAR Naik Unavailable Unavailable KAE ALEX Unavailable Unavailable TRACEY DILLN Unavailable Unavailable PATRICE FAGAN Unavailable Unavail able HERO PEREZ Unavailable Unavailable MONIK BOWERS Unavailable Unavailable Insurance Providers: All historical [...] Medina's Name Patient's Relationship to Policy Medina [facility] MEDICARE SUPPLEMEN SHEILA PLANF Mar 25, 2016 PLAN [id number] ISMAELTESS JOSE MARIA PATIENT [facility] MEDICARE SUPPLEMEN SHEILA PLANF Oct 23, 2010 PLANF [id number] [phone] CHRISTOPHER JOSE MARIA PATIENT [facility] MEDICARE SUPPLEMEN TAL PLAN Mar 25, 2016 PLANF [id number] JOSE MARIA WHITE [employer] MED SUPP MEDICARE SUPPLEMEN TAL PLAN Oct 23, 2010 PLAN [id number] [phone] JOSE MARIA WHITE AARP [facility] (WNR) MEDICARE ADVANTAGE [facility] (WNR) July 24, 2023 [id number] JOSE MARIA WHITE PATIENT MEDICARE (WNR) MEDICARE (M) PART A July 24, 2003 PART A [id number] JOSE MARIA WHITE PATIENT MEDICARE (WNR) MEDICARE (M) PART B July 24, 2003 PART B [id number] [phone] JOSE MARIA WHITE PATIENT MEDICARE (WNR) MEDICARE (M) PART A July 24, 2003 PART A [id number] JOSE MARIA WHITE PATIENT [facility] (WNR) MEDICARE ADVANTAGE MCR (WNR) Mar 25, 2024 [id number] JOSE MARIA WHITE PATIENT [facility] (WNR) MEDICARE ADVANTAGE MCR (WNR) Mar 25, 2024 [id number] JOSE MARIA WHITE PATIENT Selected Encounter This section includes the information on record at [place] for the Encounter. Date/Time Encounter Type Encounter Description Reason Provider Source Mar 11, 2025 12:30 PM NQHP OL DIG ASSMT&MGMT 21+ PAIN CLINIC ICD-10-CM Z79.891 skilled nursing (current) use of opiate analgesic MIKEL WISE [facility] Encounter Template Text not used by [place] Assessments - Encounter Diagnoses This section includes the primary and secondary diagnoses documented for the Encounter. 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 MIKEL WISE [facility] Mar 11, 2025 01:40 PM SECONDARY Anxiety disorder, unspecified MIKEL WISE [facility] Mar 11, 2025 01:40 PM SECONDARY Depression, unspecified MIKEL WISE [facility] Mar 11, 2025 01:40 PM SECONDARY Polyneuropathy, unspecified MIKEL WISE [facility] Mar 11, 2025 01:40 PM SECONDARY Post-traumatic stress disorder, chronic MIKEL WISE [facility] Mar 11, 2025 01:40 PM SECONDARY Radiculopathy, lumbar region MIKEL WISE [facility] Mar 11, 2025 01:40 PM SECONDARY Type 2 diabetes mellitus with diabetic neuropathy, unsp MIKEL WISE [facility] Mar 11, 2025 01:40 PM SECONDARY Unspecified mood [affective] disorder BILLIEMIKEL D [facility] Plan of Treatment: Future Appointments (+ 6 months) and Future Tests (+/- 45 days) The Plan of Treatment section includes future care activities for the patient from all [place] [facility] This section includes future appointments and future orders which are active, pending or scheduled. Future Appointments This section includes appointments that were scheduled to occur 6 months from the date of the Encounter, up to a maximum of 20 appointments. The data comes from all [facility]. Appointment Date/Time Appointment Type Appointme nt Facility Name Mar 15, 2025 01:30 PM AMBULATORY - NONE [facility] Mar 31, 2025 10:00 AM AMBULATORY - MEDICINE [facility] Mar 31, 2025 12:00 PM AMBULATORY - SURGERY [facility] Mar 31, 2025 02:30 PM AMBULATORY - MEDICINE [facility] Apr 09, 2025 11:00 AM AMBULATORY - MEDICINE [facility] May 03, 2025 03:00 PM AMBULATORY - NONE [facility] Active, Pending, and Scheduled Orders This section includes a listing of several types of active, pending, and scheduled orders, including clinic medications orders, diagnostic test orders, procedure orders and consult orders; where the start date of the order is 45 days before the date of the Encounter or 45 days after the date of theEncounter. The data comes from all [facility]. Test Date/Time Test Type Test Details Facility Name Feb 09, 2025 12:18 PM Laboratory - Chemistry Order URINALYSIS W/ CX REFLEX (STL-PB) URN - CLEAN CATCH URINE WC ONCE [facility] Mar 01, 2025 12:00 AM Laboratory - Microbiology Order C&S URINE URINE HOLT WC ONCE [facility] Mar 01, 2025 12:00 AM Laboratory - Chemistry Order OCCULT BLOOD FIT X1 SCREEN STOOL FECES SP [facility] Mar 01, 2025 12:00 AM Laboratory - Chemistry Order ANTITHROMBIN III ACTIVITY BLUE,LIGHT(SODIUM CITRATE) PLASMA SP [facility] Mar 01, 2025 09:36 AM Consult Order EYE CLINIC OUTPT JESSICA [employer] Planner's Choice [facility] Mar 01, 2025 09:36 AM Consult Order VASCULAR LAB OUTPT STL [employer] Planner's Choice [facility] Mar 01, 2025 09:36 AM Consult Order CARDIOLOGY OUTPT JESSICA [employer] Planner's Choice [facility] Mar 08, 2025 12:00 PM Laboratory - Chemistry Order FACTOR V(LEIDEN)MUTATION ANALYSIS BLOOD SP [facility] Mar 09, 2025 12:00 AM Laboratory - Chemistry Order URINE DRUG SCREEN (STL) URINE YELLOW SP [facility] Mar 15, 2025 12:00 AM Laboratory - Chemistry Order LACTOFERRIN,STOOL (STL-MA-PB) STOOL FECES SP [facility] Mar 15, 2025 12:00 AM Laboratory - Chemistry Order HEP C Ab HCV Ab (STL) GOLD/RED SST SERUM SP [facility] Mar 15, 2025 12:00 AM Laboratory - Chemistry Order ANTI-NUCLEAR ANTIBODY (STL-PB) GOLD/RED SST SERUM SP [facility] Mar 15, 2025 12:00 AM Laboratory - Chemistry Order ANTI-MITOCHONDRIAL AB (STL-PB) GOLD/RED SST SERUM [facility] Mar 15, 2025 12:00 AM Laboratory - Chemistry Order ACTIN (SMOOTHMUSCLE) ANTIBODY IGG GOLD/RED SST SERUM [facility] Mar 15, 2025 12:00 AM Laboratory - Chemistry Order HEP HB S Ag (AUSRIA) (STL) GOLD/RED SST SERUM [facility] Mar 15, 2025 12:00 AM Laboratory - Chemistry Order IGG (STL) GOLD/RED SST SERUM SP [facility] Mar 15, 2025 12:00 AM Laboratory - Chemistry Order HEPATITIS B SURFACE AB PNL GOLD/RED SST SERUM SP [facility] Mar 15, 2025 12:00 AM Laboratory - Chemistry Order HEP B CORE AB TOTAL. (STL) GOLD/RED SST SERUM SP [facility] Mar 15, 2025 12:00 AM Laboratory - Chemistry Order HEPATITIS A IGG AB (STL) GOLD/RED SST SERUM SP [facility] Mar 15, 2025 12:00 AM Laboratory - Chemistry Order CELIAC DISEASE PANEL (STL-MRN) GOLD/RED SST SERUM SP ONCE [facility] Mar 15, 2025 12:00 AM Laboratory - Chemistry Order ALPHA-1 ANTITRYPSIN (STL-PB) GOLD/RED SST SERUM [facility] Mar 15, 2025 12:00 AM Imaging - General Radiology Order SPINE LUMBOSACRAL 2 OR 3 VIEWS [facility] Mar 15, 2025 10:49 AM Laboratory - Chemistry Order SHIGA TOXIN 1 STOOL FECES WC ONCE [facility] Mar 15, 2025 10:49 AM Laboratory - Chemistry Order SHIGA TOXIN 2 STOOL FECES WC ONCE [facility] Mar 15, 2025 10:49 AM Laboratory - Microbiology Order C&S STOOL STOOL FECES [facility] Mar 15, 2025 10:49 AM Laboratory - Chemistry Order C DIFF EPI PCR PNL STOOL, PARA-PACK CLEAN FECES [facility] Mar 15, 2025 10:49 AM Laboratory - Microbiology Order PARASITE EXAM (STL) STOOL, PARA-PACK CLEAN FECES [facility] Mar 15, 2025 10:49 AM Consult Order GI DIAGNOSTIC COLONOSCOPY OUTPATIENT JESSICA [employer] Planner's Choice [facility] Mar 19, 2025 12:00 AM Laboratory - Chemistry Order PROTEIN C ACTIVITY(STL-MA-PB) BLUE,LIGHT(SODIUM CITRATE) PLASMA [facility] Mar 31, 2025 12:00 AM Imaging - Ultrasound Order US ABDOMEN LIMITED W/BLOOD FLOW DOPPLER [facility] Apr 22, 2025 12:00 AM Laboratory - Chemistry Order URINE DRUG SCREEN (STL) URINE YELLOW SP [facility] Lab Results: +/- 30 days of the [...] Type Comment Mar 08, 2025 12:00 PM [facility] PROTHROMBIN GENE ANALYSIS FACTOR II MUT BLOOD Specimen Type: BLOOD Comment: RESULT: [id number] VARIANT NOT DETECTED INTERPRETATION: This individual is negative (normal) for the [id number] variant in the Prothrombin/Fact or II gene. Increased risk of thrombophilia can be caused by a variety of genetic and non-genetic factors not screened for by this assay. Ordering Provider: ARMAAN FABIAN Report Released Date/Time: Mar 01, 2025 09:36 AM Reporting Lab: [address] [address] Performing Lab: [address] PROTHROMBIN GENE ANALYSIS FACTOR II MUT NEG Mar 08, 2025 12:00 PM [facility] PROTEIN S ACTIVITY(STL-MA-PB) PLASMA Specimen Type: PLASMA Comment: Test Performed by [facility], [facility], [address] [place] [address] Juan Hassan M.D., Ph.D., Director of Laboratories , [place] [id number] Ordering Provider: ARMAAN FABIAN Report Released Date/Time: Mar 01, 2025 09:36 AM Reporting Lab: [address] [address] Performing Lab: [address] PROTEIN S ACTIVITY(STL-MA-PB) 94 70 -150 Mar 08, 2025 12:00 PM [facility] PROTEIN URINE URINE Specimen Type: URINE No comment entered. Ordering Provider: ARMAAN FABIAN Report Released Date/Time: Mar 01, 2025 09:36 AM Reporting Lab: [facility] [address] [facility] [address] Performing Lab: [facility] [address] [place] [phone] PROTEIN URINE 20.5 mg/dL Mar 08, 2025 12:00 PM [facility] CREATININE URINE/OTHERS URINE Specimen Type: URINE No comment entered. Ordering Provider: ARMAAN FABIAN Report Released Date/Time: Mar 01, 2025 09:36 AM Reporting Lab: [address] [address] Performing Lab: [address] [address] CREATININE URINE/OTHERS 249.6 mg/dL H 63-1 66 Mar 08, 2025 12:00 PM [facility] MICRAL/CREAT PROFILE (STL) URINE Specimen Typ e: URINE No comment entered. Ordering Provider: ARMAAN FABIAN Report Released Date/Time: Mar 01, 2025 09:36 AM Reporting Lab: [facility] [address] [place] [phone] Performing Lab: [facility] [address] [place] [phone] URINE ALBUMIN (PB-STL) 33.1 mg/L uACR (STL) 13 mg/g 0-29 CREATININE URINE/OTHERS 251.3 mg/dL H 63-1 66 Mar 08, 2025 12:00 PM [facility] APTT PLASMA Specimen Type: PLASM A No comment entered. Ordering Provider: ARMAAN FABIAN Report Released Date/Time: Mar 01, 2025 09:36 AM Reporting Lab: [facility] [address] [place] [phone] Performing Lab: [facility] [address] [place] [phone] APTT 31.4 s 26.7-39.9 Mar 08, 2025 12:00 PM [facility] PT/INR NEW (STL-MA) PLASMA Specimen Type: PLAS MA No comment entered. Ordering Provider: ARMAAN FABIAN Report Released Date/Time: Mar 01, 2025 09:36 AM Reporting Lab: [address] [address] Performing Lab: [facility] [address] [place] [phone] PROTIME 15.6 s H 9.4-12.5 INR VALUE 1.4 {INR} Mar 08, 2025 12:00 PM [facility] GLUCOSE PLASMA Specimen Type: PLASM A No comment entered. Ordering Provider: ARMAAN FABIAN Report Released Date/Time: Mar 01, 2025 09:36 AM Reporting Lab: [address] [address] Performing Lab: [address] [address] [facility] GLUCOSE 134 mg/dL H 72-99 Mar 08, 2025 12:00 PM [facility] TSH (MA-PB) SERUM Specimen Type: SERUM No comment entered. Ordering Provider: ARMAAN FABIAN Report Released Date/Time: Mar 01, 2025 09:36 AM Reporting Lab: [address] [address] Performing Lab: [address] [address] TSH 0.702 u[IU]/mL 0.47-5 Mar 08, 2025 12:00 PM [facility] B12 SERUM Specimen Type: SERUM No comment entered. Ordering Provider: ARMAAN FABIAN Report Released Date/Time: Mar 01, 2025 09:36 AM Reporting Lab: [address] [address] Performing Lab: [address] [address] B12 592 pg/mL 213-816 Mar 08, 2025 12:00 PM [facility] CMP PLASMA Specimen Type: PLASM A Comment: No hemolysis noted. Ordering Provider: ARMAAN FABIAN Report Released Date/Time: Mar 01, 2025 09:36 AM Reporting Lab: [address] [address] Performing Lab: [address] [address] CREATININE 0.78 mg/dL 0.7-1.3 UREA NITROGEN 15.6 [...] 90.2 >60 Mar 08, 2025 12:00 PM [facility] FOLATE (STL-MA) SERUM Specimen Type: SERUM No comment entered. Ordering Provider: ARMAAN FABIAN Report Released Date/Time: Mar 01, 2025 09:36 AM Reporting Lab: [facility] [address] [facility] [address] Performing Lab: [facility] [address] [place] [phone] FOLATE (STL-MA) 4.8 ng/mL L 7-20 Mar 08, 2025 12:00 PM [facility] VITAMIN D, 25-HYDROXY SERUM Specimen Type: SE RUM No comment entered. Ordering Provider: ARMAAN FABIAN Report Released Date/Time: Mar 01, 2025 09:36 AM Reporting Lab: [address] [place] [address] Performing Lab: [address] [address] VITAMIN D, 25-HYDROXY 28.3 ng/mL L 30-96 Mar 08, 2025 12:00 PM [facility] HGA1C BLOOD Specimen Type: BLOOD No comment entered. Ordering Provider: ARMAAN FABIAN Report Released Date/Time: Mar 01, 2025 09:36 AM Reporting Lab: [address] [address] Performing Lab: [address] [address] HGA1C 6.6 Mar 08, 2025 12:00 PM [facility] LIPID PANEL (STL) PLASMA Specimen Type: PLASM A Comment: No hemolysis noted. Ordering Provider: ARMAAN FABIAN Report Released Date/Time: Mar 01, 2025 09:36 AM Reporting Lab: [address] [address] Performing Lab: [address] [address] CHOLESTEROL 136 mg/dL 0-200 TRIGLYCERIDE 138 mg/dL 0-150 CALCULATED LDL 70 mg/dL HDL(New) 38 mg/dL L >40 Mar 08, 2025 12:00 PM [facility] CBC BLOOD Specimen Type: BLOOD Comment: ~THIS TEST SHOULD ONLY BE USED BY [facility] Ordering Provider: ARMAAN FABIAN Report Released Date/Time: Mar 01, 2025 09:36 AM Reporting Lab: [address] [phone] Performing Lab: [address] [address] WBC 3.3 10*3/uL L 3.6-11.2 RBC 3.50 [...] SCRNPERF YES Mar 08, 2025 12:00 PM [facility] CYSTATIN C EGFR PANELS ([facility]-PB-[facility]) PLASMA Spec imen Type: PLASMA Comment: Choice of which of the reported eGFR values to use depends on the clinical situation. For example, for patients with severe muscle wasting or reduced muscle mass, eGFR calculated using the 2012 cystatin equation may be preferred. Ordering Provider: ARMAAN FABIAN Report Released Date/Time: Mar 01, 2025 09:36 AM Reporting Lab: [address] [address] Performing Lab: [address] [address] CYSTATIN C 1.66 mg/L 0.57-1.80 CKD-EPI CYSTATIN C (2011) 36.6 >60 CKD-EPI CREAT-CYSC (2020) 57.4 >60 CREATININE ([facility]) 0.76 mg/dL 0.7-1.3 Mar 08, 2025 12:00 PM [facility] IRON/TIBC PROFILE SERUM Specimen Type: SERUM No comment entered. Ordering Provider: ARMAAN FABIAN Report Released Date/Time: Mar 01, 2025 09:36 AM Reporting Lab: [place] [address] [facility] [address] Performing Lab: [place] [phone] TIBC 190 ug/dL L 250-450 TRANSFERRIN 152 mg/dL L 163-344 IRON SATURATION 25 20-50 IRON 47 ug/dL L 65-175 Mar 08, 2025 12:00 PM [facility] FERRITIN SERUM Specimen Type: SERUM No comment entered. Ordering Provider: ARMAAN FABIAN Report Released Date/Time: Mar 01, 2025 09:36 AM Reporting Lab: [place] [address] Performing Lab: [place] [address] FERRITIN 61.70 ng/mL 22-275 Mar 08, 2025 12:00 PM [facility] URINALYSIS W/O REFLEX CX (STL-PB) URINE Speci men Type: URINE No comment entered. Ordering Provider: ARMAAN FABIAN Report Released Date/Time: Mar 01, 2025 09:36 AM Reporting Lab: [place] [address] Performing Lab: [place] [phone] URINE COLOR Yellow Yellow U.BILIRUBIN Negative mg/dL [...] 1.038 H Mar 08, 2025 12:00 PM [facility] RETICULOCYTE PANEL BLOOD Specimen Type: BLOOD Comment: ~THIS TEST SHOULD ONLY BE USED BY [facility] Ordering Provider: ARMAAN FABIAN Report Released Date/Time: Mar 01, 2025 09:36 AM Reporting Lab: [address] [address] Performing Lab: [address] [address] RETIC RATIO 1.65 0.50-2.30 IRF 18.2 H 2.3-13.4 RETICULOCYTE HEMOGLOBIN EQUIVALENT 35.0 pg 28.2-36.6 RETIC COUNT,ABS 0.058 10*6/uL 0.022-0.10 1 Feb 10, 2025 12:51 PM [facility] GLUCOSE,BLOOD-poct (STL) BLOOD Specimen Type: BLOOD Comment: Test Performed by: [id number] Meter #: [id number] Ordering Provider: ANN BEASLEY Report Released Date/Time: Feb 10, 2025 12:53 PM Reporting Lab: [address] [address] Performing Lab: [address] [address] GLUCOSE,BLOOD-poct (STL) 199 mg/dL H 72-99 Feb 10, 2025 05:13 AM [facility] GLUCOSE,BLOOD-poct (STL) BLOOD Specimen Type: BLOOD Comment: Test Performed by: [id number] Meter #: [id number] Ordering Provider: ANN BEASLEY Report Released Date/Time: Feb 10, 2025 05:37 AM Reporting Lab: [address] [address] Performing Lab: [address] [address] GLUCOSE,BLOOD-poct (STL) 95 mg/dL 72-99 Social History: Smoking Status (Most current) and Tobacco Use (All prior to encounter date) This section includes the most current, and the historical, smoking and tobacco- related health factors from the [facility] facility where the Encounter took place. Current Smoking Status This section includes the most current smoking, or tobacco-related health factor, from the [place] facility where the Encounter took place. Date/Time Current Smoking Status Comment Vanessa eaton Jun 05, 2023 01:00 PM VA-TOBACCO FORMER USER [facility] Tobacco Use History This section includes a history of the smoking, or tobacco-related health factors, that were collected on or before the date of the Encounter. The data comes from the [place] facility where the Encounter took place. Date/Time Smoking Status/Tobacco Use Comment F jose Jun 05, 2023 01:00 PM CO-TOBACCO QUIT 15 YRS OR MORE [facility] Radiology Reports: +/- 30 days of [...] EXTREMITY VEINS BILAT (DVT): JOSE MARIA WHITE [id number] -1945 M Exm Date: FEB 10, 2025@11:29 Req Phys: JESSE BURGOS Pat Loc: 6N S OE-JESSICA/02-10-2025@13:14 Img Loc: JESSICA-ULTRASOUND JESSICA Service: [id number] SERVICE [address] [address] (Case [id number] COMPLETE) US EXTREMITY VEINS BILAT (DVT) (US Detailed) CPT:40159 Reason for Study: dx with PE Clinical History: Report Status: Verified Date Reported: FEB 10, 2025 Date Verified: FEB 10, 2025 Network/Telecom Engineer E-Sig:/ES/David Pastrana MD Report: CASE #: [id number] DATE:02/10/2025 12:51 PM CLINICAL HISTORY:dx with PE [...] verification. Dictated by Chastity Mantilla M.D. (Diagnostic Stoker Erector). I, David Pastrana, have reviewed the images and report and concur with these findings. Primary Interpreting Staff: David Pastrana MD, Radiologist (Network/Telecom Engineer) Primary Interpreting Resident: Chastity Mantilla MD, Resident Physician /DAVID [facility] Feb 09, 2025 03:[address] PE CHEST W/3D: JOSE MARIA WHITE [id number] -1945 M Ex Date: FEB 09, 2025@15:10 Req Phys: CHINO LEONG I Pat Loc: 6N S -JESSICA/02-09-2025@16:39 Img Loc: JESSICA-CT IMAGING JESSICA Service: Unknown [facility] [address] [place] [address] (Case [id number] COMPLETE) CT THORAX W/CONT (PE) (CT Detailed) CPT:32925 Contrast Media : unspecified contrast media Reason for Study: syncope, abormanl CXR Clinical History: Responsible Attending: Mariam Attending Contact Number: [phone] Resident Contact Number: syncope, abormanl CXR Allergies listed in CPRS chart: PENICILLIN, TETRACYCLINE, NEOSPORIN, CELEBREX, SIMVASTATIN Creatinine: CREATININE 0.96 mg/dL 02/09/2025 11:31 /eGFR: STL EGFR (within one year). CREATININE 0.96 mg/dL (02/09/25 11:31) Wt: 273.5 lb [124.06 kg] (09/10/2023 13:16) History of: Renal failure, chronic or acute renal disease: NO Report Status: Verified Date Reported: FEB 09, 2025 Date Verified: FEB 09, 2025 Network/Telecom Engineer E-Sig:/ES/REA MARLEY Report: CASE #: [id number] DATE:02/09/2025 4:08 PM CLINICAL HISTORY:syncope, abormanl CXR [...] confirmation. Dictated by Jamal Chiu M.D. (Diagnostic Stoker Erector). I, Rea Marley, have reviewed the images and report and concur with these findings. Primary Interpreting Staff: REA MARLEY, Staff Physician (Network/Telecom Engineer) Primary Interpreting Resident: JAMAL CHIU, Resident Physician /REA [facility] Feb 09, 2025 01:[address] HEAD W/O CONT: JOSE MARIA WHITE [id number] -1945 M Exm Date: FEB 09, 2025@13:01 Req Phys: CHINO LEONG I Pat Loc: JESSICA-EMERGENCY DEPT 2ND SHIFT (R Img Loc: JESSICA-CT IMAGING JESSICA Service: Unknown [facility] [address] [place] [address] (Case [id number] COMPLETE) CT HEAD W/O CONT (CT Detailed) CPT:07610 Reason for Study: syncopal episode Clinical History: Responsible Attending: Mariam Attending Contact Number: [phone] Resident Contact Number: syncopal episode Allergies listed in CPRS chart: PENICILLIN, TETRACYCLINE, NEOSPORIN, CELEBREX, SIMVASTATIN Creatinine: CREATININE 0.90 mg/dL 08/07/2024 14:00 /eGFR: STL EGFR (within one year). CREATININE 0.90 mg/dL (08/07/24 14:00) Wt: 273.5 lb [124.06 kg] (09/10/2023 13:16) History of: Renal failure, chronic or acute renal disease: NO Report Status: Verified Date Reported: FEB 09, 2025 Date Verified: FEB 09, 2025 Network/Telecom Engineer E-Sig:/ES/REA MARLEY Report: CASE #: [id number] DATE:02/09/2025 1:35 PM CLINICAL HISTORY:syncopal episode TECHNIQUE: [...] process. Dictated by Jamal Chiu M.D. (Diagnostic Stoker Erector). Rea Soin, have reviewed the images and report and concur with these findings. Primary Interpreting Staff: REA MARLEY Staff Physician (Network/Telecom Engineer) Primary Interpreting Resident: Resident HAL Physician /REA [facility] Feb 09, 2025 11:32 AM CHEST PORTABLE: JOSE MARIA WHITE [id number] -1945 M Exm Date: FEB 09, 2025@11:32 Req Phys: STACEYCASKESHIA Pat Loc: -EMERGENCY DEPT 2ND SHIFT (R Img Loc: -MAIN RADIOLOGY SUITE Service: [facility], [place], [facility] [address] [place] [address] (Case [id number] COMPLETE) CHEST PORTABLE (RAD Detailed) CPT:27929 Proc Modifiers : Portable Reason for Study: hypotension Clinical History: Report Status: Verified Date Reported: FEB 09, 2025 Date Verified: FEB 09, 2025 Network/Telecom Engineer E-Sig:/ES/David Pastrana MD Report: CASE [id number]. AP portable view chest. COMPARISON: FINDINGS: Bilateral [...] effusion. Dictated by Jamal Chiu M.D. (Diagnostic Stoker Erector). David Soni, have reviewed the images and report and concur with these findings. Primary Interpreting Staff: David Pastrana MD, Radiologist (Network/Telecom Engineer) Primary Interpreting Resident: Resident HAL Physician /DAVID WADE [facility] Pathology Reports: +/- 30 days of [...] the Encounter. The data comes from all [facility] facilities. Date/Time Pathology Report Provider Source Feb 09, 2025 12:20 PM LR MICROBIOLOGY RE PORT: Accession [UID]: [id number] [[id number]] Received: Feb 09, 2025@12:29 Collection sample: B D BLD. BOTTLE Collection date: Feb 09, 2025 12:20 Site/Specimen: BLOOD Provider: ANNIE ARGUETA T Test(s) ordered: BLOOD CULT (SET 1)............ completed: Feb 15, 2025 12:44 * BACTERIOLOGY FINAL REPORT => Feb 15, 2025 12:46 [facility] CODE: [id number] Bacteriology Remark(s): 02/10/25 [facility] CULTURE IS NEGATIVE TO DATE, ALL POSITIVES ARE ROUTINELY CALLED. Culture shows NO GROWTH IN 6 DAYS. 02/15/25 CED =--=--=--=--=--=--=--=--=--=- -=--=--=--=--=--=--=--=--=--= --=--=--=--=--=--=-- Performing Laboratory: Bacteriology Report [facility]: [facility] [address] [place] [address] CLIA# [id number] [address] [place] [phone] Bact Report Remark Performed By: [id number] [place] [phone] [facility] Feb 09, 2025 12:15 PM LR MICROBIOLOGY RE PORT: Accession [UID]: [id number] [[id number]] Received: Feb 09, 2025@12:29 Collection sample: B D BLD. BOTTLE (SET 2)Collection date: Feb 09, 2025 12:15 Site/Specimen: BLOOD Provider: ANNIE ARGUETA T Test(s) ordered: BLOOD CULT (SET 2)............ completed: Feb 15, 2025 12:45 * BACTERIOLOGY FINAL REPORT => Feb 15, 2025 12:46 TECH CODE: [id number] Bacteriology Remark(s): 02/10/25 CMG CULTURE IS NEGATIVE TO DATE, ALL POSITIVES ARE ROUTINELY CALLED. Culture shows NO GROWTH IN 6 DAYS. 02/15/25 CED =--=--=--=--=--=--=--=--=--=- -=--=--=--=--=--=--=--=--=--= --=--=--=--=--=--=-- Performing Laboratory: Bacteriology Report Performed By: [address] CLIA# [id number] [id number] [place] [address] Bact Report Remark Performed By: [facility]# [id number] [address] [place] [address] [facility] Encounter Notes: All associated encounter notes This section contains the clinical notes associated to the Encounter. Date/Time Encounter Note(s) Provider Source Mar 09, 2025 02:22 PM ACCOUNTING OF DISC LOSURES NOTE: LOCAL TITLE: STATE PRESCRIPTION DRUG MONITORING PROGRAM STANDARD TITLE: ACCOUNTING OF DISCLOSURES NOTE DATE OF NOTE: MAR 09, 2025@14:22:04 ENTRY DATE: MAR 09, 2025@14:22:04 AUTHOR: MIKEL WISE EXP COSIGNER: URGENCY: STATUS: COMPLETED This PDMP query was submitted by Mikel Wise [facility]. The clinical justification for this PDMP query is to review controlled substances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
--- OUTSIDE RECORDS SUMMARY | 2025-03-15 03:01 | XMS_ITS | Encounter Summary ---
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 12 HOURS. Indication: FOR LOCAL ANESTHESIA 16) METFORMIN HCL 500MG 24HR SA TAB TAKE TWO TABLETS BY MOUTH ACTIVE (S) TWICE A DAY TAKE WITH FOOD. AVOID ALCOHOL. DISCONTINUE BEFORE GETTING XRAY DYE. Indication: FOR DIABETES 17) NALOXONE HCL 4MG/SPRAY SOLN NASAL SPRAY USE 1 SPRAY (4MG) ACTIVE INTO ONE NOSTRIL ONLY ONE-TIME DO NOT PRIME NASAL SPRAY. SPRAY ONE DOSE IN ONE NOSTRIL, GIVE ADDITIONAL DOSE IF PATIENT DOES NOT START BREATHING WITHIN 2-3 MINUTES OR STOPS BREATHING AGAIN. CALL 911. IF USED, NOTIFY PROVIDER. Indication: FOR OPIOID OVERDOSE 18) NITROGLYCERIN 0.4MG SL TAB DISSOLVE ONE TABLET UNDER THE ACTIVE TONGUE ONE-TIME NEEDED ; IF NO IMPROVEMENT AFTER FIRST DOSE CALL 9-1-1. MAY TAKE 2 ADDITIONAL DOSES, 5 MINUTES APART. TAKE WHILE SITTING. Indication: FOR CHEST PAIN 19) PREGABALIN 75MG ORAL CAP TAKE ONE CAPSULE BY MOUTH TWICE A ACTIVE DAY *MAY CAUSE DROWSINESS* Indication: FOR NERVE PAIN 20) PSYLLIUM ORAL PWD MIX AND DRINK 1 TABLESPOONFUL BY MOUTH ACTIVE ONCE A DAY MIX IN GLASS OF WATER/JUICE. FLAVOR SUBSTITUTIONS MAY/WILL OCCUR AND SPECIFIC VARIETIES WILL NOT BE PROVIDED. Indication: FOR FIBER SUPPLEMENTATION 21) SERTRALINE HCL 50MG TAB TAKE ONE-HALF TABLET BY MOUTH EVERY ACTIVE MORNING FOR 4 DAYS, THEN TAKE ONE TABLET EVERY MORNING FOR 15 DAYS, THEN TAKE ONE AND ONE-HALF TABLETS EVERY MORNING Indication: FOR DEPRESSION 22) SUMATRIPTAN SUCCINATE 50MG TAB TAKE ONE TABLET BY MOUTH ACTIVE ONE-TIME TAKE AT ONSET OF HEADACHE. MAY REPEAT AFTER 2 HOURS. NOT TO EXCEED 2 TABLETS IN 24 HOURS. Indication: FOR HEADACHE 23) UNDERPAD,BED LARGE EXTRA ABSORBENT USE/APPLY 1 PAD TO ACTIVE AFFECTED AREA(S) THREE TIMES A DAY NEEDED (EXTERNAL USE ONLY) Indication: FOR INCONTINENCE Active Non-VA Medications Status 1) Non-VA ASPIRIN 81MG EC TAB 81MG BY MOUTH ONCE A DAY ACTIVE 2) Non-VA LANSOPRAZOLE (PREVACID) 15MG EC CAP 15MG BY MOUTH ACTIVE ONCE A DAY 25 Total Medications Most Recent Vital Signs: TODAY ON AUTOCUFF VSD - Detailed Vitals bp 137/78, hr 72 bpm fsbs 110 02 sats 97% r.a. Physical Exam General: GEN: WD/WN/NAD HEENT: NC/AT/MMM NECK: Supple NEURO-cn 2-12 grossly wnl PSYCH: NO SI/HI Labs MOST RECENT LABS: WBC:3.3 10*3/uL L (03/08/25 12:00) RBC:3.50 10*6/uL L (03/08/25 12:00) HGB:HGB 11.0 L g/dL 03/08/2025 12:00 HCT:34.7 % L (03/08/25 12:00) PLT:PLT 103 L 10*3/uL 03/08/2025 12:00 IRON Panel MCV: 99.1 fL (03/08/25 12:00) Ferritin: FERRITIN 61.70 ng/mL 03/08/2025 12:00 Iron:IRON 47 L ug/dL 03/08/2025 12:00 IRON SATURATION 25 %SAT 03/08/2025 12:00 TIBC: TIBC 190 L ug/dL 03/08/2025 12:00 Stool cards: No FOBT EO data found Vitamin B-12: B12 592 pg/mL 03/08/2025 12:00 (213 - 816) Folate: FOLATE (STL-MA) 4.8 L ng/mL 03/08/2025 12:00 (7.0 - 20) TSH 0.702 uIU/mL 03/08/2025 12:00 VITAMIN D, [...] 11:31 EGFR (CKD-EPI 2020) 90.2 03/08/2025 12:00 CREATININE 0.78 mg/dL 03/08/2025 12:00 EGFR (CKD-EPI 2020) 90.2 03/08/2025 12:00 Calculated CrCl: 102.2mL/min Mg:____ Prealbumin:No PREALBUMIN data found HGB A1C (last):HGA1C 6.6 % NGSP 03/08/2025 12:00 LIPIDS: Calculated LDL: CALCULATED LDL 70 mg/dL 03/08/2025 12:00 LDL(DIRECT):____ HDL:38 mg/dL L (03/08/25 12:00) Cholesterol: CHOLESTEROL 136 mg/dL 03/08/2025 12:00 Triglycerides:138 mg/dL (03/08/25 12:00) PSA:No PSA EO data found URINALYSIS: URINE COLOR Yellow 03/08/2025 12:00 APPEARANCE Clear 03/08/2025 12:00 U.PH 5.5 03/08/2025 12:00 U.BILIRUBIN Negative mg/dL 03/08/2025 12:00 U.NITRITE Negative mg/dL 03/08/2025 12:00 URINE RBC/HPF 4 /HPF 03/08/2025 12:00 URINE WBC/HPF 4 /HPF 03/08/2025 12:00 SQUAMOUS EPITH. 1 /HPF 03/08/2025 12:00 MUCUS FEW /LPF 03/08/2025 12:00 CA OXYLATE CRYSTALS OCC /HPF 03/08/2025 12:00 Stool cards: No FOBT EO data found No data available for: COLONOSCOPY CONSULT REPORT ST[facility] Chest X-ray: Impression for CHEST PORTABLE, 02/09/25, case 1550 Basilar atelectasis versus less likely pneumonia at the left lung base. Tiny nodules versus vessels in the periphery of the right lower lobe. No CHF. No focal consolidation. No pleural effusion. Dictated by Alyssa Palomares M.D. (Diagnostic Auto Seat Cover Installer). I, Sriram Pastrana, have reviewed the images and report and concur with these findings. Assessment/Plan: -diarrhea: will check stool studies as this is recurring. Encouraged Vet to stay hydradated d/t fluid losses from stooling. Vet agrees states he drinks 4-6 large glasses of fluid/day. d/t nausea will also provide short dose of zofran to use prn -rectal thickening: will refer to GI and attempt to get OSH DVD to scan into CPRS. will ask GI if they wish repeat CT abd/pelvis to compare as last CT was 01/16 at OSH. -GERD: will query GI if Vet needs egd, cont ppi. -LBP: d/t ddd and OA per reported hx from Vet as he had previous w/u from Dr. Josy Mckinley in [place], [place], Neurosurgeon, did MRI's/Xrays on Vet's back, in 2019, at [facility] in [facility], . Have Rx'd T3's and d/w Vet today putting him under drug contract. Vet agrees. Went over drug contract with Vet on video and RN will take out the handouts for Vet to read over. Reminded Vet of [facility] -knee pain: offered xrays and an ortho consult, but Vet declines. at 80/o Vet will have djd on films, but will defer for now, unless Vet wishes ortho consult in future as these should be w/in 6 mos of ortho consult. -cirrhosis: f/u liver US pending next month, will order liver labs c/w liver consult. Asked Vet to give these labs next month. Vet agrees. -folate def: Vet agrees to start folic acid when it arrives, also agrees to start b12 to top off levels -vit d def: inc'd D3 was shipped, Vet agrees to start when new dosages arrive. -leukocytosis: cont to monitor. -thrombocytopenia: likely d/t inc'd spleen size, cont to monitor. -PE: hypercoag w/u in place, labs back to date unremarkable, cont to monitor as they arrive. Cont apixaban. -decreased vision: will also attempt to request records from Dr. Negrete in [place] and asked Vet to call for a release as I see eye clinic comment indicated Dr. Negrete's office wished this. Vet agrees to call Dr. Negrete's office. -DM2: has usu 2 bm's/day, but has been having 3-4/day for the past couple of days. cont metformin XR 2000 units/day and 23 units/noc of lantus. sugar this am 110. do not believe metformin source of diarrhea as has been on it for quite some time. -HTN: stable, cont current medications f/u: Quarterly as routine, and prn 03/15/2025 13:30 [facility] G[facility]U PSI 03/31/2025 10:00 JESSICA-ULTRASOUND (2) 03/31/2025 12:00 [facility]-VASCULAR LAB 04/09/2025 11:00 [facility]CARDIOLOGY ALEJANDRO TOTAL TIME SPENT FOR ENCOUNTER: 110 minutes, which was spent in the activities documented in the note. This includes time spent prior to the visit and after the visit in direct care of the patient. This time does not include time spent in separate reportable services Suicide Risk: Patient was assessed for risk to self or others. Patient denies thoughts of self or other harm; and reports no access to means of self or other harm. Crisis Line information provided to patient and press #1 for , text to [id number], or chat online at [employer] Medication Reconciliation Opt STL: I have reviewed the patient's medication list (including active outpatient prescriptions dispensed from this [facility] (local) and dispensed from another [place] or [facility] facility (remote) as well as inpatient orders (local pending and active), local clinic medications, locally documented non-VA medications, and local prescriptions that have or been discontinued in the past 90 days.) with the patient and/or his/her care-hat and cap opener. Handwritten corrections, additions and/or deletions were made to the list, as appropriate. Corrected Outpatient Medication List was provided to the patient/caregiver. Medication education and counseling for new medications added today was provided to the based on his individual needs. This included why the medication was prescribed, how they should take it and for how long, what to expect from it, and what happens if medication is not taken as prescribed. By signing this note I certify that patient or caregiver or family member understood my instructions. A copy of the updated medication list was also given that included the medications added, changed, and/or discontinued today. /cas/ STU FABIAN MD, MS Signed: 03/15/2025 10:49 Receipt Acknowledged By: * AWAITING SIGNATURE * CÉSAR DORSEY KEVIN M [facility] Mar 15, 2025 09:01 AM TELEHEALTH NOTE: LOCAL TITLE: PRIMARY CARE VIDEO CONNECT ST[facility] STANDARD TITLE: TELEHEALTH NOTE DATE OF NOTE: MAR 15, 2025@09:01 ENTRY DATE: MAR 15, 2025@09:01:59 AUTHOR: STU FABIAN EXP COSIGNER: URGENCY: STATUS: COMPLETED PRIMARY CARE VIDEO CONNECT STL Has ADDENDA The following information was shared with and/or Caregiver at time of scheduling visit: [facility] clinicians may use [facility] through the Virtual Civil Manager or [facility] Now to provide telehealth. [place] and/or Caregiver verbalized understanding and requested to utilize one of the above named applications to complete the visit. COVID-19 Screening Questionnaire Contacted [place]/caregiver at the following phone number: Spoke with:JOSE MARIA WHITE Patient Identifiers (two required): 2 PATIENT IDENTIFIERS: JOSE MARIA WHITE [id number] [address] (X) Medicine Provider Note Modality of Care: Clinical Video Telehealth Visit conducted by Clinical Video Telehealth. Patient/surrogate provided verbal consent for video telehealth. Patient location confirmed. Emergency number confirmed. Patient Contact Details: Best contact number for backup communication with patient: Patient Other: Chief Complaint: diarrhea History of Present Illness: Reviewed OSH notes from [facility] in [facility]. Vet was admitted to OSH 01/15 for f/u for n/v/abnormal abd CT. CT ABD/Pelvis showed G.B. wall thickening with small amt of pericholecystic fat stranding. HIDA Scan was unremarkable and abd US showed mild G.B> wall thickening with a dialated distal CBD. Surgery eval'd the pt and no acute surical intervention was needed. Vet did not have acute cholecystitis. GI noted that the Vet maira m had n/v d/t a sequela of prior gastroenteritis causing upper GI dysmotility. Incidentally the CT Abd/Pelvis also showed concentric thickening of the holley of the rectum. DDx included incomplete rectal wall distention, proctitis, or mass. Pt's last colonospcy was 11 yrs ago at OSH and Dr. Aris Sanders, non[facility] GI, at [facility] recommended Vet to f/u with GI for outpt colonoscopy and for f/u of his new cirrhosis Dx. Vet was again seen in ER at [facility] in 02/16 for similar GI sx's but was dx'd with simple gastroenteritis and d/c'd to home Vet has usu 2 bm's/day, but has been having 3-4/days for the past couple of days. states BM is liquid has dk brown feces, seems to be unformed per pt when he looks in the toilet. has had some early am nausea lately. Will refer to GI for above complaints of diarrhea, cirrhosis, rectal thickening, and per OSH GI recommendtions and attempt to get OSH DVD to scan into CPRS. will ask GI if they wish repeat CT abd/pelvis to compare as last CT was 01/16 at OSH. Vet does have anemia, and is taking iron pills and is mildly folate def. Does GI recommend starting aldactone in this Vet with cirrhosis? Vet also tells me it was 30+ yrs ago he had his last EGD and he will have GERD Sx's if he does not take his PPI. Vet also agrees to a narcotic contract and requests T3's from me going forward. Issues not covered today, but covered at my last visit. -syncope: will also check carotid screening with juan's in view of recent syncopal event. -arrythmia: will consult cardiology as cit[facility] holter had PVC's with bi/trigeminy and brief runs of non-sustained v tach, along with PAC's and brief runs of PAT. We may need to inc the BB to attempt to control it. -Obesity: will request interdry to put under the pannus Is the Vet uses diapers at this time. cont with HB RD -Gerd: the patient takes Prevacid once a day from non-VA source. Unsure if he has had an EGD in the past? Will ask RN to check with Vet. -Anemia: Hemoglobin is mildly low at 11.8 g. Will need to recheck this with iron studies. Six months ago be 12 and fully work within a normal limits but will recheck these as well with a thyroid Level -Edema We need to check JUAN, and consult the clinical edema clinic for the edema that he has after results reviewed. Vet has DM2, too. -Hyperlipidemia? small vessel disease is noted on head CT. Vet is DM2. Reasonable to consider statin but last ldl only 93 and total chol 163. Will d/w Pharm D. cont asa 81mg/day. last lipids were 08/16, so will radha. -ptsd: cont with . 03/15/2025 13:30 [facility] G[facility] PSI -Cervical radiculopathy vs Migranes?: the patient complains that Cervical radiculopathy is the source of his pain in his head,rather than true migranes as there are no auras or visual changes and he feels that the sumatriptan relieves it. but does get the relief from the sumatriptan from [facility]. He should continue with what brings him pain relief Past Medical History: See Problem List. ACTIVE PROBLEMS- 1) Diabetes Mellitus Type 2 ([facility] [id number]) 2) Diabetic neuropathy 3) HTN - Hypertension ([facility] [id number]) 4) Lumbar radiculopathy 5) Migraine without aura 6) Sarcoidosis 7) GERD - Gastro-Esophageal Reflux Disease ([facility] [id number]) 8) Burn of foot 9) Anxiety ([facility] [id number]) 10) Chronic Post-Traumatic Stress Disorder ([facility] [id number]) 11) Exposure to potentially hazardous substance 12) Pulmonary embolism 13) Arrhythmia 14) Obesity 15) Incontinence 16) Anemia ([facility] [id number]) 17) Cirrhosis - Non-Alcoholic ([facility] [id number]) 18) Oedema 19) Decreased vision 20) Neuropathy 21) Constipation 22) Depression ([facility] [id number]) 23) Mood disorder Social History: Denies alcohol use, former smoker (quit 1973, 3 pack year history as smoked 1/2 ppd x 6 yrs total), no illict drug us in past. 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 Patient denies any significant alcohol use. He denies any current alcohol use. He states it was only drunk two times in his life. Review of Systems: ROS- Per HPI, and pt denies fever/chills/ night sweats/ weight loss/fatigue/chest pain/SOB/PND/Orthopnea/coug h/wheeze/GI complaints/urinary problems/pain/dizziness/hea dache/weakness of extremity/fall/feelings of sadness ALLERGIES PENICILLIN, TETRACYCLINE, NEOSPORIN, CELEBREX, SIMVASTATIN Medication Reconciliation Completed: ACTIVE MEDS-Active Outpatient Medications (including Supplies): Active Outpatient Medications [...] DAILY NEEDED Indication: FOR INCONTINENCE 5) CARVEDILOL 12.5MG TAB TAKE ONE TABLET BY MOUTH TWICE A DAY ACTIVE WITH FOOD Indication: FOR HIGH BLOOD PRESSURE 6) CHOLECALCIF 50MCG (D3-2,000UNIT) TAB TAKE ONE TABLET BY ACTIVE MOUTH ONCE A DAY Indication: FOR VITAMIN D DEFICIENCY 7) CODEINE 30/ACETAMINOPHEN 300MG TAB TAKE 1 TABLET BY MOUTH ACTIVE TWICE DAILY NEEDED . CAUTION: DO NOT EXCEED 4000MG PER DAY ACETAMINOPHEN (APAP) FROM ALL MEDS. Indication: FOR PAIN 8) CYANOCOBALAMIN 1000MCG TAB TAKE ONE TABLET BY MOUTH ONCE A ACTIVE DAY STOP AFTER REFILLS ARE OUT Indication: FOR VITAMIN B12 SUPPLEMENTATION 9) DIVALPROEX 250MG 24HR (ER) SA TAB TAKE TWO TABLETS BY MOUTH ACTIVE ONCE A DAY Indication: FOR BIPOLAR DISORDER 10) DRESSING,MOISTURE WICKING W/AG [id number] USE/APPLY ACTIVE DRESSING(S) TO AFFECTED AREA(S) TWICE DAILY NEEDED (EXTERNAL USE ONLY) Indication: FOR WOUND CARE 11) FERROUS SULFATE 325MG TAB TAKE ONE TABLET BY MOUTH EVERY ACTIVE OTHER DAY STOP AFTER REFILLS ARE OUT Indication: FOR IRON DEFICIENCY ANEMIA 12) FOLIC ACID 1MG TAB TAKE ONE TABLET BY MOUTH ONCE A DAY STOP ACTIVE AFTER REFILLS ARE OUT Indication: FOR FOLIC ACID SUPPLEMENTATION 13) INSULIN,GLARGINE 100 UNT/ML 3ML SOLOSTAR INJECT 23 UNITS ACTIVE (S) UNDER THE SKIN ONCE A DAY ADMINISTER AT SAME TIME EACH DAY DIRECTED. DISCARD ANY OPEN CARTRIDGE AFTER 28 DAYS. Indication: FOR DIABETES 14) LANCET,SOFTCLIX USE LANCET FOR BLOOD TEST TWICE A DAY USE ACTIVE DIRECTED. Indication: FOR BLOOD SUGAR MONITORING 15) LIDOCAINE 5% PATCH APPLY 1 PATCH TO SKIN SITE ONCE A DAY FOR ACTIVE (S) PAIN. APPLY PATCH AND PRESS FIRMLY FOR 10-15 SECONDS. KEEP ON FOR 12 HOURS THEN REMOVE PATCH FOR 12 HOURS. Indication: FOR LOCAL ANESTHESIA 16) METFORMIN HCL 500MG 24HR SA TAB TAKE TWO TABLETS BY MOUTH ACTIVE (S) TWICE A DAY TAKE WITH FOOD. AVOID ALCOHOL. DISCONTINUE BEFORE GETTING XRAY DYE. Indication: FOR DIABETES 17) NALOXONE HCL 4MG/SPRAY SOLN NASAL SPRAY USE 1 SPRAY (4MG) ACTIVE INTO ONE NOSTRIL ONLY ONE-TIME DO NOT PRIME NASAL SPRAY. SPRAY ONE DOSE IN ONE NOSTRIL, GIVE ADDITIONAL DOSE IF PATIENT DOES NOT START BREATHING WITHIN 2-3 MINUTES OR STOPS BREATHING AGAIN. CALL 911. IF USED, NOTIFY PROVIDER. Indication: FOR OPIOID OVERDOSE 18) NITROGLYCERIN 0.4MG SL TAB DISSOLVE ONE TABLET UNDER THE ACTIVE TONGUE ONE-TIME NEEDED ; IF NO IMPROVEMENT AFTER FIRST DOSE CALL 11-23-. MAY TAKE 2 ADDITIONAL DOSES, 5 MINUTES APART. TAKE WHILE SITTING. Indication: FOR CHEST PAIN 19) PREGABALIN 75MG ORAL CAP TAKE ONE CAPSULE BY MOUTH TWICE A ACTIVE DAY *MAY CAUSE DROWSINESS* Indication: FOR NERVE PAIN 20) PSYLLIUM ORAL PWD MIX AND DRINK 1 TABLESPOONFUL BY MOUTH ACTIVE ONCE A DAY MIX IN GLASS OF WATER/JUICE. FLAVOR SUBSTITUTIONS MAY/WILL OCCUR AND SPECIFIC VARIETIES WILL NOT BE PROVIDED. Indication: FOR FIBER SUPPLEMENTATION 21) SERTRALINE HCL 50MG TAB TAKE ONE-HALF TABLET BY MOUTH EVERY ACTIVE MORNING FOR 4 DAYS, THEN TAKE ONE TABLET EVERY MORNING FOR 15 DAYS, THEN TAKE ONE AND ONE-HALF TABLETS EVERY MORNING Indication: FOR DEPRESSION 22) SUMATRIPTAN SUCCINATE 50MG TAB TAKE ONE TABLET BY MOUTH ACTIVE ONE-TIME TAKE AT ONSET OF HEADACHE. MAY REPEAT AFTER 2 HOURS. NOT TO EXCEED 2 TABLETS IN 24 HOURS. Indication: FOR HEADACHE 23) UNDERPAD,BED LARGE EXTRA ABSORBENT USE/APPLY 1 PAD TO ACTIVE AFFECTED AREA(S) THREE TIMES A DAY NEEDED (EXTERNAL USE ONLY) Indication: FOR INCONTINENCE Active Non-VA Medications Status 1) Non-VA ASPIRIN 81MG EC TAB 81MG BY MOUTH ONCE A DAY ACTIVE 2) Non-VA LANSOPRAZOLE (PREVACID) 15MG EC CAP 15MG BY MOUTH ACTIVE ONCE A DAY 25 Total Medications Most Recent Vital Signs: TODAY ON AUTOCUFF VSD - Detailed Vitals bp 137/78, hr 72 bpm fsbs 110 02 sats 97% r.a. Physical Exam General: GEN: WD/WN/NAD HEENT: NC/AT/MMM NECK: Supple NEURO-cn 2-12 grossly wnl PSYCH: NO SI/HI Labs MOST RECENT LABS: WBC:3.3 10*3/uL L (03/08/25 12:00) RBC:3.50 10*6/uL L (03/08/25 12:00) HGB:HGB 11.0 L g/dL 03/08/2025 12:00 HCT:34.7 % L (03/08/25 12:00) PLT:PLT 103 L 10*3/uL 03/08/2025 12:00 IRON Panel MCV: 99.1 fL (03/08/25 12:00) Ferritin: FERRITIN 61.70 ng/mL 03/08/2025 12:00 Iron:IRON 47 L ug/dL 03/08/2025 12:00 IRON SATURATION 25 %SAT 03/08/2025 12:00 TIBC: TIBC 190 L ug/dL 03/08/2025 12:00 Stool cards: No FOBT EO data found Vitamin B-12: B12 592 pg/mL 03/08/2025 12:00 (213 - 816) Folate: FOLATE (STL-MA) 4.8 L ng/mL 03/08/2025 12:00 (7.0 - 20) TSH 0.702 uIU/mL 03/08/2025 12:00 VITAMIN D, [...] 11:31 EGFR (CKD-EPI 2020) 90.2 03/08/2025 12:00 CREATININE 0.78 mg/dL 03/08/2025 12:00 EGFR (CKD-EPI 2020) 90.2 03/08/2025 12:00 Calculated CrCl: 102.2mL/min Mg:____ Prealbumin:No PREALBUMIN data found HGB A1C (last):HGA1C 6.6 % NGSP 03/08/2025 12:00 LIPIDS: Calculated LDL: CALCULATED LDL 70 mg/dL 03/08/2025 12:00 LDL(DIRECT):____ HDL:38 mg/dL L (03/08/25 12:00) Cholesterol: CHOLESTEROL 136 mg/dL 03/08/2025 12:00 Triglycerides:138 mg/dL (03/08/25 12:00) PSA:No PSA EO data found URINALYSIS: URINE COLOR Yellow 03/08/2025 12:00 APPEARANCE Clear 03/08/2025 12:00 U.PH 5.5 03/08/2025 12:00 U.BILIRUBIN Negative mg/dL 03/08/2025 12:00 U.NITRITE Negative mg/dL 03/08/2025 12:00 URINE RBC/HPF 4 /HPF 03/08/2025 12:00 URINE WBC/HPF 4 /HPF 03/08/2025 12:00 SQUAMOUS EPITH. 1 /HPF 03/08/2025 12:00 MUCUS FEW /LPF 03/08/2025 12:00 CA OXYLATE CRYSTALS OCC /HPF 03/08/2025 12:00 Stool cards: No FOBT EO data found No data available for: COLONOSCOPY CONSULT REPORT ST[facility] Chest X-ray: Impression for CHEST PORTABLE, 02/09/25, case 1550 Basilar atelectasis versus less likely pneumonia at the left lung base. Tiny nodules versus vessels in the periphery of the right lower lobe. No CHF. No focal consolidation. No pleural effusion. Dictated by Alyssa Palomares M.D. (Diagnostic Auto Seat Cover Installer). I, Sriram Pastrana, have reviewed the images and report and concur with these findings. Assessment/Plan: -diarrhea: will check stool studies as this is recurring. Encouraged Vet to stay hydradated d/t fluid losses from stooling. Vet agrees states he drinks 4-6 large glasses of fluid/day. d/t nausea will also provide short dose of zofran to use prn -rectal thickening: will refer to GI and attempt to get OSH DVD to scan into CPRS. will ask GI if they wish repeat CT abd/pelvis to compare as last CT was 01/16 at OSH. -GERD: will query GI if Vet needs egd, cont ppi. -LBP: d/t ddd and OA per reported hx from Vet as he had previous w/u from Dr. Josy Mckinley in [place], [place], Neurosurgeon, did MRI's/Xrays on Vet's back, in 2019, at [facility] in [facility], . Have Rx'd T3's and d/w Vet today putting him under drug contract. Vet agrees. Went over drug contract with Vet on video and RN will take out the handouts for Vet to read over. Reminded Vet of UDS [facility]. -knee pain: offered xrays and an ortho consult, but Vet declines. at 80/o Vet will have djd on films, but will defer for now, unless Vet wishes ortho consult in future as these should be w/in 6 mos of ortho consult. -cirrhosis: f/u liver US pending next month, will order liver labs c/w liver consult. Asked Vet to give these labs next month. Vet agrees. -folate def: Vet agrees to start folic acid when it arrives, also agrees to start b12 to top off levels -vit d def: inc'd D3 was shipped, Vet agrees to start when new dosages arrive. -leukocytosis: cont to monitor. -thrombocytopenia: likely d/t inc'd spleen size, cont to monitor. -PE: hypercoag w/u in place, labs back to date unremarkable, cont to monitor as they arrive. Cont apixaban. -decreased vision: will also attempt to request records from Dr. Negrete in [place] and asked Vet to call for a release as I see eye clinic comment indicated Dr. Negrete's office wished this. Vet agrees to call Dr. Negrete's office. -DM2: has usu 2 bm's/day, but has been having 3-4/day for the past couple of days. cont metformin XR 2000 units/day and 23 units/noc of lantus. sugar this am 110. do not believe metformin source of diarrhea as has been on it for quite some time. -HTN: stable, cont current medications f/u: Quarterly as routine, and prn 03/15/2025 13:30 [facility] 03/31/2025 10:00 [facility]-ULTRASOUND (2) 03/31/2025 12:00 [facility] 04/09/2025 11:00 [facility] TOTAL TIME SPENT FOR ENCOUNTER: 110 minutes, which was spent in the activities documented in the note. This includes time spent prior to the visit and after the visit in direct care of the patient. This time does not include time spent in separate reportable services Suicide Risk: Patient was assessed for risk to self or others. Patient denies thoughts of self or other harm; and reports no access to means of self or other harm. [place] [facility] Line information provided to patient and press #1 for , text to [phone], or chat online at [email or web address]/chat Medication Reconciliation Opt STL: I have reviewed the patient's medication list (including active outpatient prescriptions [facility] from this [facility] (local) and dispensed from another [facility] or [facility] facility (remote) as well as inpatient orders (local pending and active), local clinic medications, locally documented non-VA medications, and local prescriptions that have or been discontinued in the past 90 days.) with the patient and/or his/her care-hat and cap opener. Handwritten corrections, additions and/or deletions were made to the list, as appropriate. Corrected Outpatient Medication List was provided to the patient/caregiver. Medication education and counseling for new medications added today was provided to the [place] based on his individual needs. This included why the medication was prescribed, how they should take it and for how long, what to expect from it, and what happens if medication is not taken as prescribed. By signing this note I certify that patient or caregiver or family member understood my instructions. A copy of the updated medication list was also given that included the medications added, changed, and/or discontinued today. /cas/ STU FABIAN MD, MS Signed: 03/15/2025 10:49 Receipt Acknowledged By: 03/16/2025 12:00 /cas/ CÉSAR DORSEY Boat Mechanic, [facility] 03/15/2025 ADDENDUM STATUS: COMPLETED attn RN: I asked Dany to call his [facility] in [place], Dr. Luis Enrique Negrete and get the release form signed they want before records can be released to [place]. Dany has been referred to [facility] and prereq labs have been ordered [facility], also when he does his Low Back Xray that is ordered. Stool Cx has also been ordered. TY. /cas/ STU FABIAN MD, MS Signed: 03/15/2025 13:40 Receipt Acknowledged By: 03/16/2025 06:11 /cas/ HERO SHAFFER REGISTERED NURSE STU FABIAN [facility]
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
--- OUTSIDE RECORDS SUMMARY | 2025-03-22 08:59 | XMS_ITS | Encounter Summary ---
Author Name [facility] [place] Organization [facility] ([place]) Address [address] [place] [address] Care Team Providers Care Milking Machine Technician Name Role Phone GRACE QUINN Primary [...] Medina's Name Patient's Relationship to Policy Medina [facility] MEDICARE SUPPLEMEN SHEILA PLANF Mar 25, 2016 PLAN [id number] [phone] ISMAELTESS JOSE MARIA PATIENT [facility] MEDICARE SUPPLEMEN SHEILA PLANF Oct 23, 2010 PLANF [id number] JOSE MARIA MTATHEWS PATIENT [facility] MEDICARE SUPPLEMEN SHEILA PLANF Mar 25, 2016 PLANF [id number] JOSE MARIA MATTHEWS MED SUPP MEDICARE SUPPLEMEN SHEILA PLANF Oct 23, 2010 PLANF [id number] [phone] JOSE MARIA MATTHEWSP [facility] (WNR) MEDICARE ADVANTAGE [facility] (WNR) July 24, 2023 [id number] [phone] JOSE MARIA MATTHEWS PATIENT MEDICARE (WNR) MEDICARE (M) PART A July 24, 2003 PART A [id number] JOSE MARIA MATTHEWS PATIENT MEDICARE (WNR) MEDICARE (M) PART B July 24, 2003 PART B [id number] JOSE MARIA MATTHEWS PATIENT MEDICARE (WNR) MEDICARE (M) PART A July 24, 2003 PART A [id number] JOSE MARIA MATTHEWS [facility] (WNR) MEDICARE ADVANTAGE [facility] (WNR) Mar 25, 2024 [id number] [phone] JOSE MARIA MATTHEWS [facility] (WNR) MEDICARE ADVANTAGE [facility] (WNR) Mar 25, 2024 [id number] [phone] JOSE MARIA MATTHEWS PATIENT Selected Encounter This section includes the information on record at [place] for the Encounter. Date/Time Encounter Type Encounter Description Reason Pro vider Source Mar 22, 2025 02:59 PM Outpatient Encounter GASTROENTEROLOGY IHE Encounter Template Text not used by [place] Plan of Treatment: Future Appointments (+ 6 months) and Future Tests (+/- 45 days) The Plan of Treatment section includes future care activities for the patient from all [place] treatmentfacilities. This section includes future appointments and future orders which are active, pending or scheduled. Future Appointments This section includes appointments that were scheduled to occur 6 months from the date of the Encounter, up to a maximum of 20 appointments. The data comes from all [place] treatment facilities. Appointment Date/Time Appointment Type Appointme nt Facility Name Mar 31, 2025 10:00 AM AMBULATORY - MEDICINE [facility] Mar 31, 2025 12:00 PM AMBULATORY - SURGERY [facility] Mar 31, 2025 02:30 PM AMBULATORY - MEDICINE [facility] Apr 09, 2025 11:00 AM AMBULATORY - MEDICINE [facility] May 03, 2025 03:00 PM AMBULATORY - NONE [facility] Active, Pending, and Scheduled Orders This [...] URN - CLEAN CATCH URINE WC ONCE [facility] Mar 01, 2025 12:00 AM Laboratory - Chemistry Order OCCULT BLOOD FIT X1 SCREEN STOOL FECES SP [facility] Mar 01, 2025 12:00 AM Laboratory - Microbiology Order C&S URINE URINE HOLT WC ONCE [facility] Mar 01, 2025 12:00 AM Laboratory - Chemistry Order ANTITHROMBIN III ACTIVITY BLUE,LIGHT(SODIUM CITRATE) PLASMA SP [facility] Mar 01, 2025 09:36 AM Consult Order EYE CLINIC OUTPT JESSICA Cons Ice Resurfacing Machine Operators's Choice [facility] Mar 01, 2025 09:36 AM Consult Order VASCULAR LAB OUTPT STL Cons Ice Resurfacing Machine Operators's Choice [facility] Mar 01, 2025 09:36 AM Consult Order CARDIOLOGY OUTPT JESSICA Cons Ice Resurfacing Machine Operators's Choice [facility] Mar 08, 2025 12:00 PM Laboratory - Chemistry Order FACTOR V(LEIDEN)MUTATION ANALYSIS BLOOD SP [facility] Mar 09, 2025 12:00 AM Laboratory - Chemistry Order URINE DRUG SCREEN (STL) URINE YELLOW SP [facility] Mar 15, 2025 12:00 AM Laboratory - Chemistry Order LACTOFERRIN,STOOL (STL-MA-PB) STOOL FECES SP [facility] Mar 15, 2025 12:00 AM Laboratory - Chemistry Order HEP C Ab HCV Ab (STL) GOLD/RED SST SERUM SP [facility] Mar 15, 2025 12:00 AM Laboratory - Chemistry Order ANTI-NUCLEAR ANTIBODY (STL-PB) GOLD/RED SST SERUM SP [facility] Mar 15, 2025 12:00 AM Laboratory - Chemistry Order ANTI-MITOCHONDRIAL AB (STL-PB) GOLD/RED SST SERUM SP [facility] Mar 15, 2025 12:00 AM Laboratory - Chemistry Order ACTIN (SMOOTHMUSCLE) ANTIBODY IGG GOLD/RED SST SERUM SP [facility] Mar 15, 2025 12:00 AM Laboratory - Chemistry Order IGG (STL) GOLD/RED SST SERUM SP [facility] Mar 15, 2025 12:00 AM Laboratory - Chemistry Order HEP HB S Ag (AUSRIA) (STL) GOLD/RED SST SERUM SP [facility] Mar 15, 2025 12:00 AM Laboratory - Chemistry Order HEP B CORE AB TOTAL. (STL) GOLD/RED SST SERUM SP [facility] Mar 15, 2025 12:00 AM Laboratory - Chemistry Order HEPATITIS B SURFACE AB PNL GOLD/RED SST SERUM SP [facility] Mar 15, 2025 12:00 AM Laboratory - Chemistry Order HEPATITIS A IGG AB (STL) GOLD/RED SST SERUM SP [facility] Mar 15, 2025 12:00 AM Laboratory - Chemistry Order ALPHA-1 ANTITRYPSIN (L-PB) GOLD/RED SST SERUM SP [facility] Mar 15, 2025 12:00 AM Laboratory - Chemistry Order CELIAC DISEASE PANEL (L-MRN) GOLD/RED SST SERUM SP ONCE [facility] Mar 15, 2025 12:00 AM Imaging - General Radiology Order SPINE LUMBOSACRAL 2 OR 3 VIEWS [facility] Mar 15, 2025 10:49 AM Laboratory - Chemistry Order SHIGA TOXIN 2 STOOL FECES WC ONCE [facility] Mar 15, 2025 10:49 AM Laboratory - Microbiology Order C&S STOOL STOOL FECES WC [facility] Mar 15, 2025 10:49 AM Laboratory - Chemistry Order SHIGA TOXIN 1 STOOL FECES WC ONCE [facility] Mar 15, 2025 10:49 AM Laboratory - Chemistry Order C DIFF EPI PCR PNL STOOL, PARA-PACK CLEAN FECES SP [facility] Mar 15, 2025 10:49 AM Laboratory - Microbiology Order PARASITE EXAM (STL) STOOL, PARA-PACK CLEAN FECES SP [facility] Mar 15, 2025 10:49 AM Consult Order GI DIAGNOSTIC COLONOSCOPY OUTPATIENT JESSICA Cons Ice Resurfacing Machine Operators's Choice [facility] Mar 19, 2025 12:00 AM Laboratory - Chemistry Order PROTEIN C ACTIVITY(STL-MA-PB) BLUE,LIGHT(SODIUM CITRATE) PLASMA SP [facility] Mar 31, 2025 12:00 AM Imaging - Ultrasound Order US ABDOMEN LIMITED W/BLOOD FLOW DOPPLER [facility] Apr 22, 2025 12:00 AM Laboratory - Chemistry Order URINE DRUG SCREEN (STL) URINE YELLOW SP [facility] Lab Results: +/- 30 days of the encounter This section includes the Chemistry and Hematology Lab Results on record with [place] for the patient. Radiology Reports and Pathology Reports are provided separately, in subsequent sections. Lab Results This section contains the Chemistry/Hematology Results that were resulted 30 days before or 30 daysafter the date of the Encounter. Date/Time Source Result Type Result - Unit Interpretation Reference Range Specimen Type Comment Mar 08, 2025 12:00 PM [facility] PROTHROMBIN GENE ANALYSIS FACTOR II MUT BLOOD Specimen Type: BLOOD Comment: RESULT: [id number] VARIANT NOT DETECTED INTERPRETATION: This individual is negative (normal) for the [id number] variant in the Prothrombin/Fact or II gene. Increased risk of thrombophilia can be caused by a variety of genetic and non-genetic factors not screened for by this assay. Ordering Provider: STU FABIAN Report Released Date/Time: Mar 01, 2025 09:36 AM Reporting Lab: [facility] [address] [address] Performing Lab: [facility] [address] [facility] [address] PROTHROMBIN GENE ANALYSIS FACTOR II MUT NEG Mar 08, 2025 12:00 PM [facility] PROTEIN S ACTIVITY(L-MA-PB) PLASMA Specimen Type: PLASMA Comment: Test Performed by [facility], [facility], [address] [place], [place] Juan Hassan M.D., Ph.D., Director of Laboratories , [facility] [id number] Ordering Provider: STU FABIAN Report Released Date/Time: Mar 01, 2025 09:36 AM Reporting Lab: [address] [address] Performing Lab: [facility] [address] [facility] PROTEIN S ACTIVITY(STL-MA-PB) 94 70 -150 Mar 08, 2025 12:00 PM [facility] PROTEIN URINE URINE Specimen Type: URINE No comment entered. Ordering Provider: STU FABIAN Report Released Date/Time: Mar 01, 2025 09:36 AM Reporting Lab: [address] [address] Performing Lab: [address] [address] PROTEIN URINE 20.5 mg/dL Mar 08, 2025 12:00 PM [facility] CREATININE URINE/OTHERS URINE Specimen Type: URINE No comment entered. Ordering Provider: STU FABIAN Report Released Date/Time: Mar 01, 2025 09:36 AM Reporting Lab: [address] [address] Performing Lab: [address] [address] CREATININE URINE/OTHERS 249.6 mg/dL H 63-1 66 Mar 08, 2025 12:00 PM [facility] MICRAL/CREAT PROFILE (STL) URINE Specimen Typ e: URINE No comment entered. Ordering Provider: STU FABIAN Report Released Date/Time: Mar 01, 2025 09:36 AM Reporting Lab: [address] [address] Performing Lab: [address] [place] [address] URINE ALBUMIN (PB-STL) 33.1 mg/L uACR (STL) 13 mg/g 0-29 CREATININE URINE/OTHERS 251.3 mg/dL H 63-1 66 Mar 08, 2025 12:00 PM [facility] PT/INR NEW (STL-MA) PLASMA Specimen Type: PLAS MA No comment entered. Ordering Provider: STU FABIAN Report Released Date/Time: Mar 01, 2025 09:36 AM Reporting Lab: [address] [address] Performing Lab: [place] [phone] PROTIME 15.6 s H 9.4-12.5 INR VALUE 1.4 {INR} Mar 08, 2025 12:00 PM [facility] APTT PLASMA Specimen Type: PLASM A No comment entered. Ordering Provider: STU FABIAN Report Released Date/Time: Mar 01, 2025 09:36 AM Reporting Lab: [facility] [address] [place] [address] Performing Lab: [place] [phone] APTT 31.4 s 26.7-39.9 Mar 08, 2025 12:00 PM [facility] GLUCOSE PLASMA Specimen Type: PLASM A No comment entered. Ordering Provider: STU FABIAN Report Released Date/Time: Mar 01, 2025 09:36 AM Reporting Lab: [address] [address] Performing Lab: [address] [address] [facility] GLUCOSE 134 mg/dL H 72-99 Mar 08, 2025 12:00 PM [facility] TSH (MA-PB) SERUM Specimen Type: SERUM No comment entered. Ordering Provider: STU FABIAN Report Released Date/Time: Mar 01, 2025 09:36 AM Reporting Lab: [facility] [address] [address] Performing Lab: [address] [address] TSH 0.702 u[IU]/mL 0.47-5 Mar 08, 2025 12:00 PM [facility] B12 SERUM Specimen Type: SERUM No comment entered. Ordering Provider: STU FABIAN Report Released Date/Time: Mar 01, 2025 09:36 AM Reporting Lab: [address] [address] Performing Lab: [address] [address] B12 592 pg/mL 213-816 Mar 08, 2025 12:00 PM [facility] CMP PLASMA Specimen Type: PLASM A Comment: No hemolysis noted. Ordering Provider: STU FABIAN Report Released Date/Time: Mar 01, 2025 09:36 AM Reporting Lab: [address] [address] Performing Lab: [address] [address] CREATININE 0.78 mg/dL 0.7-1.3 UREA NITROGEN 15.6 [...] 90.2 >60 Mar 08, 2025 12:00 PM [facility] FOLATE (STL-MA) SERUM Specimen Type: SERUM No comment entered. Ordering Provider: STU FABIAN Report Released Date/Time: Mar 01, 2025 09:36 AM Reporting Lab: [address] [address] Performing Lab: [address] [address] FOLATE (STL-MA) 4.8 ng/mL L 7-20 Mar 08, 2025 12:00 PM [facility] VITAMIN D, 25-HYDROXY SERUM Specimen Type: SE RUM No comment entered. Ordering Provider: STU FABIAN Report Released Date/Time: Mar 01, 2025 09:36 AM Reporting Lab: [address] [address] Performing Lab: [address] [address] VITAMIN D, 25-HYDROXY 28.3 ng/mL L 30-96 Mar 08, 2025 12:00 PM [facility] LIPID PANEL (STL) PLASMA Specimen Type: PLASM A Comment: No hemolysis noted. Ordering Provider: STU FABIAN Report Released Date/Time: Mar 01, 2025 09:36 AM Reporting Lab: [address] [address] Performing Lab: [address] [address] CHOLESTEROL 136 mg/dL 0-200 TRIGLYCERIDE 138 mg/dL 0-150 CALCULATED LDL 70 mg/dL HDL(New) 38 mg/dL L >40 Mar 08, 2025 12:00 PM [facility] HGA1C BLOOD Specimen Type: BLOOD No comment entered. Ordering Provider: STU FABIAN Report Released Date/Time: Mar 01, 2025 09:36 AM Reporting Lab: [address] [address] Performing Lab: [address] [address] HGA1C 6.6 Mar 08, 2025 12:00 PM [facility] CBC BLOOD Specimen Type: BLOOD Comment: ~THIS TEST SHOULD ONLY BE USED BY HB Ordering Provider: STU FABIAN Report Released Date/Time: Mar 01, 2025 09:36 AM Reporting Lab: [address] [address] Performing Lab: [address] [address] WBC 3.3 10*3/uL L 3.6-11.2 RBC 3.50 [...] SCRNPERF YES Mar 08, 2025 12:00 PM [facility] CYSTATIN C EGFR PANELS (STL-PB-MA) PLASMA [...] 2025 09:36 AM Reporting Lab: [facility] [address] [address] Performing Lab: [address] [address] CYSTATIN C 1.66 mg/L 0.57-1.80 CKD-EPI CYSTATIN C (2011) 36.6 >60 CKD-EPI CREAT-CYSC (2020) 57.4 >60 CREATININE (STL) 0.76 mg/dL 0.7-1.3 Mar 08, 2025 12:00 PM [facility] FERRITIN SERUM Specimen Type: SERUM No comment entered. Ordering Provider: STU FABIAN Report Released Date/Time: Mar 01, 2025 09:36 AM Reporting Lab: [address] [address] Performing Lab: [address] [address] FERRITIN 61.70 ng/mL 22-275 Mar 08, 2025 12:00 PM [facility] IRON/TIBC PROFILE SERUM Specimen Type: SERUM No comment entered. Ordering Provider: STU FABIAN Report Released Date/Time: Mar 01, 2025 09:36 AM Reporting Lab: [address] [address] Performing Lab: [address] [address] TIBC 190 ug/dL L 250-450 TRANSFERRIN 152 mg/dL L 163-344 IRON SATURATION 25 20-50 IRON 47 ug/dL L 65-175 Mar 08, 2025 12:00 PM [facility] URINALYSIS W/O REFLEX CX (STL-PB) URINE Speci men Type: URINE No comment entered. Ordering Provider: STU FABIAN Report Released Date/Time: Mar 01, 2025 09:36 AM Reporting Lab: [address] [address] Performing Lab: [address] [address] URINE COLOR Yellow Yellow U.BILIRUBIN Negative mg/dL [...] 1.038 H Mar 08, 2025 12:00 PM [facility] RETICULOCYTE PANEL BLOOD Specimen Type: BLOOD Comment: ~THIS TEST SHOULD ONLY BE USED BY [facility] Ordering Provider: STU FABIAN Report Released Date/Time: Mar 01, 2025 09:36 AM Reporting Lab: [facility] [address] [facility] [address] Performing Lab: [place] [address] [facility] [address] RETIC RATIO 1.65 0.50-2.30 IRF 18.2 H 2.3-13.4 RETICULOCYTE HEMOGLOBIN EQUIVALENT 35.0 pg 28.2-36.6 RETIC COUNT,ABS 0.058 10*6/uL 0.022-0.10 1 Social History: Smoking Status (Most current) and Tobacco Use (All prior to encounter date) This section includes the most current, and the historical, smoking and tobacco- related health factors from the [place] facility where the Encounter took place. Current Smoking Status This section includes the most current smoking, or tobacco-related health factor, from the [place] facility where the Encounter took place. Date/Time Current Smoking Status Comment Vanessa eaton Jun 10, 2024 11:21 AM [place]-TOBACCO USE FOR HANK CIGARETTES [facility] Tobacco Use History This section includes a history of the smoking, or tobacco-related health factors, that were collected on or before the date of the Encounter. The data comes from the [place] facility where the Encounter took place. Date/Time Smoking Status/Tobacco Use Comment Antoine garcia Jun 10, 2024 11:21 AM [place]-TOBACCO USE FOR HANK CIGARETTES [facility] Encounter Notes: All associated encounter notes This section contains the clinical notes associated to the Encounter. Date/Time Encounter Note(s) Provider Source Mar 22, 2025 02:59 PM ADMINISTRATIVE NOT E: LOCAL TITLE: ADMINISTRATIVE STL STANDARD TITLE: ADMINISTRATIVE NOTE DATE OF NOTE: MAR 22, 2025@14:59 ENTRY DATE: MAR 22, 2025@15:00:13 AUTHOR: GRIFFIN WHITLOCK EXP COSIGNER: URGENCY: STATUS: COMPLETED SUBJECT: APPT REMINDER JOSE MARIA MATTHEWS [address] [address] Dear Jose Maria Matthews, This is a reminder of the following scheduled clinic appointment: Date/Time: SaturdayMar 31, 2025 2:30 pm Clinic: -GI URGENT CARE Location: [address] This appointment may have been made at the request of your Primary Care Provider, or to follow-up on a gastrointestinal or liver condition for which we are already seeing you. This is a clinic appointment, therefore any pre-procedure preparation or fasting is not needed as no endoscopic procedures will be done at the time of this visit. Please arrive 15 minutes before your scheduled appointment time. PLEASE NOTIFY US IF YOU CANNOT KEEP THIS APPOINTMENT SOON POSSIBLE. Early cancellation will allow us to fill that slot with another deserving , reducing the time it takes to get a specialty clinic appointment for everyone and allowing us to reschedule you quickly. Thank you. [facility] [address] [place], [place] [address] /es/ GRIFFIN WHITLOCK [employer] D[employer]ER Signed: 03/22/2025 15:00 GRIFFIN WHITLOCK [facility]
--- NOTE | ~2025-03-23 | CT_ITS ---
EXAMINATION: CT abdomen pelvis w con DATE: 03/23/2025 19:05 INDICATION: Nausea, vomiting and diarrhea TECHNIQUE: Computed tomography (CT) of the abdomen and pelvis was performed with 100 mL Omnipaque-350 intravenous contrast. Automated exposure control and iterative reconstruction technique were employed. The dose-length product was 1774.31 mGy-cm. COMPARISON: 01/21/2025 FINDINGS: Minimal bibasilar atelectasis. Heart size is normal. Atherosclerotic coronary artery calcific location. No pericardial or pleural effusion. Nodular cirrhotic liver. Likely secondary portal venous hypertension with splenorenal and gastroesophageal varices. Mild splenomegaly measuring 16.8 cm maximal length. Pancreas, gallbladder, bilateral adrenal glands and right kidney are normal. There are 4 nonobstructing left renal stones measuring up to 5 mm. Surgical clips near the tip the cecum likely related to prior appendectomy. No abnormal bowel wall thickening or obstruction. Small to moderate amount of ascites scattered throughout the abdomen and pelvis. Bladder is normal. No abscess or free intraperineal gas. Body wall edema in the dependent lower abdomen and pelvis. No pathologically enlarged abdominal or pelvic lymphadenopathy. Severe lumbar spondylosis. IMPRESSION: 1. 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 2. Small to moderate amount of ascites likely related to liver disease. 2. Nonobstructing left nephrolithiasis. Reviewed, dictated and finalized at location A. EGE ARCHIVIST IMPRESSION: 1. Cirrhosis with mild splenomegaly and portosystemic collaterals consistent wi th portal venous hypertension. 2. Small to moderate amount of ascites likely related to liver disease. 2. Nonobstructing left nephrolithiasis.
--- NOTE | ~2025-03-23 | CT_ITS ---
CT brain wo con HISTORY:R sided kohler, n/v COMPARISON: None. TECHNIQUE: Axial images were obtained of the head without intravenous contrast. FINDINGS: No acute intracranial hemorrhage, mass effect or midline shift. No extra-axial fluid collections. There is generalized atrophy.The calvarium is intact. Visualized paranasal sinuses and mastoid air cells are clear. IMPRESSION: No acute intracranial hemorrhage or extra axial fluid collections. All CT scans at this facility are performed using low dose modulation techniques as appropriate to perform exam including the following: automated exposure control; use of iterative reconstruction technique; adjustment of the mA and/or kV according to patient size (this includes techniques or standardized protocols for targeted exams where dose is matched to indication/reason for exam). Reviewed, dictated and finalized at location S. H FOODS CAKE DECORATOR IMPRESSION: No acute intracranial hemorrhage or extra axial fluid collections. All CT scans at this facility are performed using low dose modulation techniqu es as appropriate to perform exam including the following: automated exposure c ontrol; use of iterative reconstruction technique; adjustment of the mA and/or kV according to patient size (this includes techniques or standardized protocol s for targeted exams where dose is matched to indication/reason for exam).
--- OUTSIDE RECORDS SUMMARY | 2025-03-23 13:36 | XMS_ITS | Continuity of Care Document ---
Author Name [facility] Organization [facility] Care Team Providers Care Compensation And Benefits Advisor Name Role Phone [facility] Unavailable Unavailable Problems Combined list of problems from Department of Defense and Veterans Affairs facilities. It does not include entries that were removed or entered in error. Problem Status Onset Date Problem Type Date of Resolution Comments Source History of appendectomy Active 03/25/19 21 Condition [facility] Anemia ([facility] [id number]) Active Condition [facility] An[facility] Active Condition [facility] Anxiety ([facility] [id number]) Active Condition [facility] Arrhythmia Active Condition [facility] Arthritis of knee Active Condition [facility] Atherosclerotic heart disease of resighini coronary artery without angina pectoris Active Condition [facility] Burn of foot Active Condition Jun 05, 2023 Entered By: ANGELICA MILIAN Comment: Second degree feet [facility] Chronic fatigue syndrome Active Condition [facility] Chronic pain syndrome Active Condition [facility] Chronic Post-Traumatic Stress Disorder ([facility] [id number]) Active Condition [facility] Cirrhosis - Non-Alcoholic ([facility] [id number]) Active Condition [facility] Constipation Active Condition [facility] Decreased vision Active Condition [facility] Depression ([facility] [id number]) Active Condition [facility] Diabetes Mellitus Type 2 ([facility] [id number]) Active Condition [facility] Diabetic neuropathy Active Condition [facility] Diabetic peripheral neuropathy Active Condition [facility] DM - Diabetes mellitus Active Condition [facility] Exposure to potentially hazardous substance Active Condition [facility] Fibromyalgia Active Condition [facility] Gastroesophageal reflux disease Active Condition [facility] GERD - Gastro-Esophageal Reflux Disease ([facility] [id number]) Active Condition [facility] High heavy metal level in blood Active Condition [facility] History of right cataract extraction Active Condition [facility] HTN - Hypertension ([facility] [id number]) Active Condition [facility] Hyperglycemia due to type 2 diabetes mellitus Active Condition [facility] Hyperlipidemia Active Condition [facility] Hypertension Active Condition [facility] Hypertensive heart disease without congestive heart failure Active Condition [facility] Incontinence Active Condition [facility] Lumbar radiculopathy Active Condition [facility] Microalbuminuria due to type 2 diabetes mellitus Active Condition [facility] Migraine Active Condition [facility] Migraine without aura Active Condition [facility] Mood disorder Active Condition [facility] Morbid obesity Active Condition [facility] Neuropathy Active Condition [facility] Obesity Active Condition [facility] Oedema Active Condition [facility] Partial thickness burn of foot Active Condition [facility] Posttraumatic stress disorder Active Condition [facility] Pulmonary embolism Active Condition [facility] Recurrent major depressive disorder Active Condition [facility] Sarcoidosis Active Condition [facility] Sarcoidosis Active Condition Jun 05, 2023 Entered By: ANGELICA MILIAN Comment: Questionable history as reported by [facility] Senile cataract Active Condition Dec 10, 2022 Entered By: GRACE QUINN Comment: Left [facility] Sinus tachycardia Active Condition [facility] Type 2 diabetes mellitus uncontrolled [facility] Diagnosis: ICD-10-CM F39 Unspecified mood [affective] disorder Active Diagnosis [facility] Diagnosis: ICD-10-CM M54.59 Other low back pain Active Diagnosis 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 Diagnosis: ICD-10-CM Z71.9 Counseling, unspecified Active Diagnosis [facility] Diagnosis: ICD-10-CM H54.7 Unspecified visual loss Active Diagnosis [facility] Diagnosis: ICD-10-CM F43.12 Post-traumatic stress disorder, chronic Active Diagnosis [facility] Diagnosis: ICD-10-CM I48.0 Paroxysmal atrial fibrillation Active Diagnosis [facility] Diagnosis: ICD-10-CM E11.40 Type 2 diabetes mellitus with diabetic neuropathy, unsp Active Diagnosis [facility] Diagnosis: ICD-10-CM R45.851 Suicidal ideations Active Diagnosis [facility] Diagnosis: ICD-10-CM F32.A Depression, unspecified Active Diagnosis [facility] Diagnosis: ICD-10-CM Z71.81 Spiritual or hindu counseling Active Diagnosis [facility] Diagnosis: ICD-10-CM Z86.718 Personal history of other venous thrombosis and embolism Active Diagnosis [facility] Admit Reason: SYNCOPE Active Diagnosis [facility] Diagnosis: ICD-10-CM I26.09 Other pulmonary embolism with acute cor pulmonale Active Diagnosis [facility] Diagnosis: ICD-10-CM R53.1 Weakness Active Diagnosis [facility] Diagnosis: ICD-10-CM I48.91 Unspecified atrial fibrillation Active Diagnosis [facility] Diagnosis: ICD-10-CM B34.9 Viral infection, unspecified Active Diagnosis [facility] Diagnosis: ICD-10-CM A08.4 Viral intestinal infection, unspecified Active Diagnosis [facility] Diagnosis: ICD-10-CM R68.89 Other general symptoms and signs Active Diagnosis [facility] Diagnosis: ICD-10-CM F41.9 Anxiety disorder, unspecified Active Diagnosis [facility] Diagnosis: ICD-10-CM I10 Essential (primary) hypertension Active Diagnosis [facility] Diagnosis: ICD-10-CM F31.9 Bipolar disorder, unspecified Active Diagnosis [facility] Diagnosis: ICD-10-CM I87.313 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 Medication Details Route Status Indication(s) Patie nt Instructions Prescription Expires Prescription Number Last Dispense Date Ordering Provider Order Date Order Qty Source ACETAMINOPH EN 500MG TAB TAKE ONE TABLET (500MG) BY MOUTH EVERY 8 HOURS NEEDED ORAL ACTIVE KHALIF BOUCHER 2018 [facility] ACETYLCYSTE INE 10% SOLN,INHL/O RAL TAKE 600 MG MOUTH EVERY DAY ORAL ACTIVE KHALIF BOUCHER 2018 [facility] ALPHA-LIPOI C ACID CAP/TAB TAKE 250MG BY MOUTH EVERY DAY ACTIVE OSEIEM SHANEKA D 2016 [place] [facility] APIXABAN 5MG TAB TAKE ONE TABLET BY MOUTH TWICE A DAY FOR ANTICOAG ULATION ORAL ACTIVE 02/11/2026 [id number] 5 [facility] 2024 60 [facility] APIXABAN 5MG TAB TAKE TWO TABLETS BY MOUTH TWICE A DAY FOR 7 DAYS, THEN TAKE ONE TABLET TWICE A DAY FOR ANTICOAG ULATION [facility] 02/11/2026 [id number] 5 [facility] 2024 74 [facility] ASCORBIC ACID 1GM TAB TAKE ONE TABLET BY MOUTH EVERY DAY ORAL ACTIVE OSEIEM SHANEKA D 2016 [place] [facility] ASPIRIN 81MG TAB,EC TAKE ONE TABLET BY MOUTH ONCE A DAY ORAL ACTIVE ORI ESQUIVEL 2023 [facility] ASPIRIN 81MG TAB,EC TAKE ONE TABLET BY MOUTH EVERY DAY ORAL ACTIVE OSEI,EM SHANEKA D 2016 [facility] CARVEDILOL 12.5MG TAB TAKE ONE TABLET BY MOUTH TWICE A DAY WITH FOOD FOR HIGH BLOOD PRESSURE ORAL ACTIVE 03/11/2026 [id number] 5 Rachael FABIAN 2024 180 [facility] CARVEDILOL 25MG TAB TAKE ONE-HALF TABLET BY MOUTH TWICE A DAY WITH FOOD FOR HIGH BLOOD PRESSURE ORAL DISCONT INUED (EDIT) 09/22/2025 [id number] 5 ORI ESQUIVEL 2024 90 [facility] CARVEDILOL 25MG TAB TAKE ONE-HALF TABLET BY MOUTH TWICE A DAY WITH FOOD FOR HIGH BLOOD PRESSURE ORAL DISCONT INUED 09/10/2024 [id number] 5 ORI ESQUIVEL 2023 90 [facility] CHOLECALCIF JOO 50MCG (2,000UNIT) TAB TAKE ONE TABLET BY MOUTH ONCE A DAY FOR VITAMIN D DEFICIEN CY ORAL ACTIVE 03/10/2026 [id number] 5 Rachael FABIAN 2024 100 [facility] CHOLECALCIF JOO 50MCG (2,000UNIT) TAB TAKE ONE TABLET BY MOUTH EVERY DAY ORAL ACTIVE EITAN OSEI 2016 [facility] CODEINE 30MG/ACETAM INOPHEN 300MG TAB TAKE 1 TABLET BY MOUTH TWICE DAILY NEEDED FOR PAIN. CAUTION: DO NOT EXCEED 4000MG PER DAY ACETAMIN OPHEN (APAP) FROM ALL MEDS. ORAL ACTIVE 09/10/2025 [id number] 5 Rachael FABIAN 2024 60 [facility] CODEINE 30MG/ACETAM INOPHEN 300MG TAB TAKE 1 TABLET BY MOUTH TWICE DAILY NEEDED FOR PAIN. CAUTION: DO NOT EXCEED 4000MG PER DAY ACETAMIN OPHEN (APAP) FROM ALL MEDS. ORAL DISCONT INUED 05/26/2025 [id number] 5 ORI ESQUIVEL 2024 60 [facility] CODEINE 30MG/ACETAM INOPHEN 300MG TAB TAKE 1 TABLET BY MOUTH TWICE DAILY NEEDED FOR PAIN. CAUTION: DO NOT EXCEED 4000MG PER DAY ACETAMIN OPHEN (APAP) FROM ALL MEDS. ORAL DISCONT INUED 02/24/2025 [id number] 5 ORI ESQUIVEL GREGORIO 2024 60 [facility] CODEINE 30MG/ACETAM INOPHEN 300MG TAB TAKE 1 TABLET BY MOUTH TWICE DAILY NEEDED FOR PAIN. CAUTION: DO NOT EXCEED 4000MG PER DAY ACETAMIN OPHEN (APAP) FROM ALL MEDS. ORAL DISCONT INUED 11/22/2024 [id number] 5 [facility]VINW[facility]IAMASH[facility] 2024 60 [facility] CODEINE 30MG/ACETAM INOPHEN 300MG TAB TAKE 1 TABLET BY MOUTH TWICE DAILY NEEDED FOR PAIN. CAUTION: DO NOT EXCEED 4000MG PER DAY ACETAMIN OPHEN (APAP) FROM ALL MEDS. ORAL DISCONT INUED 08/07/2024 [id number] 5 Kitty LOPEZ 2023 60 [facility] CODEINE 30MG/ACETAM INOPHEN 300MG TAB TAKE 1 TABLET BY MOUTH TWICE DAILY NEEDED FOR PAIN. CAUTION: DO NOT EXCEED 4000MG PER DAY ACETAMIN OPHEN (APAP) FROM ALL MEDS. ORAL DISCONT INUED 04/12/2024 [id number] 4 ORI ESQUIVEL GREGORIO 2023 60 [facility] CODEINE 30MG/ACETAM INOPHEN 300MG TAB TAKE ONE TABLET BY MOUTH TWICE A DAY NEEDED ORAL ACTIVE KHALIF BOUCHER 2018 [facility] COENZYME Q10 CAP/TAB TAKE BY MOUTH EVERY DAY ACTIVE EITAN OSEI 2016 [facility] COMPOUND FORMULA #1 MISCELLANEO US USE 400 MG BY MOUTH TWICE A DAY ACTIVE KHALIF BOUCHER 2018 [facility] COMPOUND FORMULA #1 MISCELLANEO US USE 500 MG by mouth EVERY DAY ACTIVE KHALIF BOUCHER 2018 [facility] CYANOCOBALA MIN 1000MCG TAB TAKE ONE TABLET BY MOUTH ONCE A DAY FOR VITAMIN B12 SUPPLEME NTATION STOP AFTER REFILLS ARE OUT ORAL ACTIVE 06/07/2025 [id number] 5 Rachael FABIAN 2024 100 [facility] DIVALPROEX NA 250MG TAB,SA TAKE THREE TABLETS BY MOUTH ONCE A DAY ORAL ACTIVE 03/16/2026 [id number] 5 GURUSIDDA JJPRATI [facility] N 2024 90 [facility] DIVALPROEX NA 250MG TAB,SA TAKE TWO TABLETS BY MOUTH ONCE A DAY ORAL DISCONT INUED (EDIT) 02/16/2026 [id number] 5 GURUSIDDA JJPRATI [facility] N 2024 60 [facility] DIVALPROEX NA 250MG TAB,SA TAKE ONE TABLET BY MOUTH ONCE A DAY FOR 4 DAYS, THEN TAKE TWO TABLETS ONCE A DAY ORAL DISCONT INUED 02/16/2026 [id number] 5 GURUSIDDA JJPRATI [facility] N 2024 56 [facility] DIVALPROEX NA 250MG TAB,SA TAKE THREE TABLETS BY MOUTH ONCE A DAY ORAL DISCONT INUED (EDIT) 08/20/2025 [id number] 5 GURUSIDDA JJPRATI [facility] N 2024 90 [facility] DIVALPROEX NA 250MG TAB,SA TAKE TWO TABLETS BY MOUTH ONCE A DAY FOR BIPOLAR DISORDER ORAL DISCONT INUED (EDIT) 08/26/2024 [id number] 5 GURUSIDDA JJ,PRATI [facility] N 2024 60 [facility] DIVALPROEX NA 250MG TAB,SA TAKE TWO TABLETS BY MOUTH ONCE A DAY FOR BIPOLAR DISORDER ORAL DISCONT INUED 07/24/2024 [id number] 5 GURUSIDDA JJPRATI [facility] N 2024 60 [facility] DIVALPROEX NA 250MG TAB,SA TAKE TWO TABLETS BY MOUTH ONCE A DAY FOR BIPOLAR DISORDER ORAL DISCONT INUED 04/09/2025 [id number] 5 GURUSIDDA JJPRATI [facility] N 2024 60 [facility] DIVALPROEX NA 250MG TAB,SA TAKE ONE TABLET BY MOUTH ONCE A DAY FOR 7 DAYS, THEN TAKE TWO TABLETS ONCE A DAY FOR BIPOLAR DISORDER ORAL DISCONT INUED 04/09/2025 [id number] 5 GURUSIDDA JJPRATI [facility] N 2024 53 [facility] DIVALPROEX NA 500MG TAB,SA TAKE TWO TABLETS BY MOUTH ONCE A DAY FOR BIPOLAR DISORDER ORAL DISCONT INUED BY PROVIDE R 12/08/2025 [id number] 5 GURUSIDDA JJPRATI [facility] N 2024 60 [facility] DIVALPROEX NA 500MG TAB,SA TAKE TWO TABLETS BY MOUTH ONCE A DAY FOR BIPOLAR DISORDER ORAL DISCONT INUED 10/07/2025 [id number] 5 GURUSIDDA JJPRATI [facility] N 2024 60 [facility] FERROUS SO4 325MG TAB TAKE ONE TABLET BY MOUTH EVERY OTHER DAY FOR IRON DEFICIEN CY ANEMIA STOP AFTER REFILLS ARE OUT ORAL ACTIVE 05/08/2025 [id number] 5 Rachael FABIAN 2024 30 [facility] FOLIC ACID 1MG TAB TAKE ONE TABLET BY MOUTH ONCE A DAY FOR FOLIC ACID SUPPLEME NTATION STOP AFTER REFILLS ARE OUT ORAL ACTIVE 03/10/2026 [id number] 5 Rachael FABIAN 2024 100 [facility] FOLIC ACID TAB TAKE 300 MCG BY MOUTH EVERY DAY ORAL ACTIVE KHALIF BOUCHER 2018 [facility] HYDROXYTRYP TOPHAN CAP/TAB TAKE 100 MG BY MOUTH AT BEDTIME ORAL ACTIVE KHALIF BOUCHER 2018 [facility] HYDROXYZINE HCL 50MG TAB TAKE ONE TABLET BY MOUTH ONCE ONCE A DAY NEEDED FOR ANXIETY *MAY CAUSE DROWSINE SS* ORAL DISCONT INUED 07/15/2024 [id number] 5 [facility]VIN[facility]IAMASHLEY 2024 90 [facility] HYDROXYZINE HCL 50MG TAB TAKE ONE TABLET BY MOUTH ONCE ONCE A DAY NEEDED FOR ANXIETY *MAY CAUSE DROWSINE SS* ORAL DISCONT INUED 04/09/2024 [id number] 4 ALVINWILLIAMASHLEY 2023 90 [facility] HYDROXYZINE HCL 50MG TAB TAKE ONE TABLET BY MOUTH ONCE ONCE A DAY NEEDED FOR ANXIETY *MAY CAUSE DROWSINE SS* ORAL 09/22/2024 [id number] 5 [facility]VINWILLIAMASHLEY 2024 90 [facility] INSULIN,GLA RGINE,HUMAN 100 UNIT/ML INJ,SOLOSTA R,3ML INJECT 23 UNITS UNDER THE SKIN ONCE A DAY FOR DIABETES ADMINIST ER AT SAME TIME EACH DAY DIRECTED . DISCARD ANY OPEN CARTRIDG E AFTER 28 DAYS. SUBCUT ANEOUS SUSPEND ED 03/11/2026 [id number] 6 Rachael FABIAN 2025 10 [facility] INSULIN,GLA RGINE,HUMAN 100 UNIT/ML INJ,SOLOSTA R,3ML INJECT 23 UNITS UNDER THE SKIN ONCE A DAY FOR DIABETES ADMINIST ER AT SAME TIME EACH DAY DIRECTED . DISCARD ANY OPEN CARTRIDG E AFTER 28 DAYS. SUBCUT ANEOUS DISCONT INUED (EDIT) 09/25/2025 [id number] 5 HARIKA HOUSE 2024 5 [facility] INSULIN,GLA RGINE,HUMAN 100 UNIT/ML INJ,SOLOSTA R,3ML INJECT 20 UNITS UNDER THE SKIN ONCE A DAY FOR DIABETES ADMINIST ER AT SAME TIME EACH DAY DIRECTED . DISCARD ANY OPEN CARTRIDG E AFTER 28 DAYS. SUBCUT ANEOUS DISCONT INUED (EDIT) 08/22/2025 [id number] 5 HARIKA HOUSE 2024 10 [facility] INSULIN,GLA RGINE,HUMAN 100 UNIT/ML INJ,SOLOSTA R,3ML INJECT 5 UNITS UNDER THE SKIN ONCE A DAY ADMINIST ER AT SAME TIME EACH DAY DIRECTED . DISCARD ANY OPEN CARTRIDG E AFTER 28 DAYS. SUBCUT ANEOUS DISCONT INUED (EDIT) 08/08/2025 [id number] 5 HARIKA HOUSE 2024 5 [facility] N INSULIN,GLA RGINE,HUMAN 100 UNIT/ML INJ,SOLOSTA R,3ML INJECT 30 UNITS OF 100 UNIT/ML UNDER THE SKIN ONCE A DAY FOR DIABETES ADMINIST ER AT SAME TIME EACH DAY DIRECTED . DISCARD ANY OPEN CARTRIDG E AFTER 28 DAYS. SUBCUT ANEOUS DISCONT INUED (EDIT) 01/03/2025 [id number] 5 ORI ESQUIVEL 2023 10 [facility] LANSOPRAZOL E 15MG CAP,EC TAKE 1 CAPSULE BY MOUTH EVERY DAY ORAL ACTIVE EITAN OSIE 2016 [place] [facility] LANSOPRAZOL E 15MG CAP,EC TAKE 1 CAPSULE BY MOUTH ONCE A DAY ORAL ACTIVE ORI ESQUIVEL 2023 [facility] LIDOCAINE 5% PATCH APPLY 1 PATCH TO SKIN SITE ONCE A DAY FOR PAIN. APPLY PATCH AND PRESS FIRMLY FOR 10-15 SECONDS. KEEP ON FOR 12 HOURS THEN REMOVE PATCH FOR 12 HOURS. TRANSD ERMAL SUSPEND ED 03/11/2026 [id number] 6 Rachael FABIAN 2025 90 [facility] LIDOCAINE 5% PATCH APPLY 1 PATCH TO SKIN SITE ONCE A DAY APPLY PATCH AND PRESS FIRMLY FOR 10-15 SECONDS. KEEP ON FOR 12 HOURS THEN REMOVE PATCH FOR 12 HOURS. TRANSD ERMAL DISCONT INUED (EDIT) 09/19/2025 [id number] 5 HARIKA HOUSE 2024 90 [facility] LORATADINE 5MG/PSEUDOE PHEDRINE HCL 120MG TAB,SA TAKE ONE TABLET BY MOUTH EVERY DAY ORAL ACTIVE EITAN OSEI 2016 [facility] METFORMIN HCL 500MG 24HR TAB,SA TAKE TWO TABLETS BY MOUTH TWICE A DAY FOR DIABETES TAKE WITH FOOD. AVOID ALCOHOL. DISCONTI NUE BEFORE GETTING XRAY DYE. ORAL SUSPEND ED 03/10/2026 [id number] 6 Rachael FABIAN 2025 360 [facility] METFORMIN HCL 500MG 24HR TAB,SA TAKE TWO TABLETS BY MOUTH TWICE A DAY FOR DIABETES TAKE WITH FOOD. AVOID ALCOHOL. DISCONTI NUE BEFORE GETTING XRAY DYE. ORAL DISCONT INUED 12/08/2025 [id number] 5 ORI ESQUIVEL 2024 360 [facility] METFORMIN HCL 500MG 24HR TAB,SA TAKE TWO TABLETS BY MOUTH TWICE A DAY FOR DIABETES TAKE WITH FOOD. AVOID ALCOHOL. DISCONTI NUE BEFORE GETTING XRAY DYE. ORAL DISCONT INUED 12/07/2024 [id number] 5 ORI ESQUIVEL 2024 360 [facility] METFORMIN HCL 500MG 24HR TAB,SA TAKE TWO TABLETS BY MOUTH TWICE A DAY FOR DIABETES TAKE WITH FOOD. AVOID ALCOHOL. DISCONTI NUE BEFORE GETTING XRAY DYE. ORAL DISCONT INUED 05/23/2025 [id number] 5 ORI ESQUIVEL 2024 120 [facility] METFORMIN HCL 500MG 24HR TAB,SA TAKE TWO TABLETS BY MOUTH TWICE A DAY FOR DIABETES TAKE WITH FOOD. AVOID ALCOHOL. DISCONTI NUE BEFORE GETTING XRAY DYE. ORAL DISCONT INUED 02/19/2025 [id number] 5 IZABELA RODRIGUEZ AM 2023 120 [facility] METFORMIN HCL 500MG 24HR TAB,SA TAKE TWO TABLETS BY MOUTH TWICE A DAY FOR DIABETES TAKE WITH FOOD. AVOID ALCOHOL. DISCONTI NUE BEFORE GETTING XRAY DYE. ORAL DISCONT INUED 06/06/2024 [id number] 4 SUSANNE MILIAN EELA 2023 120 [facility] MULTIVITAMI N/MINERALS SENIOR FORMULA TAB TAKE ONE TABLET BY MOUTH EVERY DAY ORAL ACTIVE OSEI,EM SHANEKA D 2016 [facility] MULTIVITAMI N/OPHT ANTIOX/ARED S2 CAP/TAB CAP/TAB TAKE BY MOUTH EVERY DAY ORAL ACTIVE OSEI,EM [facility]KA D [facility] MUPIROCIN 2% OINT,TOP APPLY LIGHTLY TO AFFECTED AREA(S) TWICE A DAY EXTERNAL USE ONLY. TOPICA L 09/06/2024 [id number] 5 ORI ESQUIVEL 2024 44 [facility] NALOXONE HCL 4MG/SPRAY SOLN,SPRAY, NASAL USE 1 SPRAY (4MG) INTO ONE NOSTRIL ONLY ONE-TIME FOR OPIOID OVERDOSE DO NOT PRIME NASAL SPRAY. SPRAY ONE DOSE IN ONE NOSTRIL, GIVE ADDITION AL DOSE IF PATIENT DOES NOT START BREATHIN G WITHIN 2-3 MINUTES OR STOPS BREATHIN G AGAIN. CALL 911. IF USED, NOTIFY PROVIDER . NASAL ACTIVE 05/10/2025 [id number] 5 ORI ESQUIVEL 2024 2 [facility] NITROGLYCER IN 0.4MG TAB,SUBLING UAL DISSOLVE ONE TABLET UNDER THE TONGUE ONE-TIME NEEDED FOR CHEST PAIN; IF NO IMPROVEM ENT AFTER FIRST DOSE CALL 9-1-1. MAY TAKE 2 ADDITION AL DOSES, 5 MINUTES APART. TAKE WHILE SITTING. SUBLIN GUAL ACTIVE 03/11/2026 [id number] 5 Rachael FABIAN 2024 100 [facility] NITROGLYCER IN 0.4MG TAB,SUBLING UAL DISSOLVE ONE TABLET UNDER THE TONGUE ONE-TIME NEEDED ; IF NO IMPROVEM ENT AFTER FIRST DOSE CALL 9-1-1. MAY TAKE 2 ADDITION AL DOSES, 5 MINUTES APART. TAKE WHILE SITTING. SUBLIN KASSANDRA 11/05/2024 [id number] 5 HARIKA HOUSE 2024 100 [facility] ONDANSETRON HCL 4MG TAB,ORALLY DISINTEGRAT ING TAKE ONE TABLET UNDER THE TONGUE EVERY EIGHT(8) HOURS NEEDED SUBLIN GUAL ACTIVE 03/16/2026 [id number] 5 Rachael FABIAN 2024 60 [facility] N PHYTONADION E TAB TAKE 100 MCG BY MOUTH EVERY DAY ORAL ACTIVE KHALIF BOUCHER 2018 [facility] PREGABALIN 75MG CAP,ORAL TAKE ONE CAPSULE BY MOUTH TWICE A DAY FOR NERVE PAIN *MAY CAUSE DROWSINE SS* ORAL ACTIVE 06/09/2025 [id number] 5 ORI ESQUIVEL 2024 60 [facility] PREGABALIN 75MG CAP,ORAL TAKE ONE CAPSULE BY MOUTH TWICE A DAY FOR NERVE PAIN *MAY CAUSE DROWSINE SS* ORAL DISCONT INUED 02/24/2025 [id number] 5 ORI ESQUIVEL 2024 60 [facility] PREGABALIN 75MG CAP,ORAL TAKE ONE CAPSULE BY MOUTH TWICE A DAY FOR NERVE PAIN *MAY CAUSE DROWSINE SS* ORAL DISCONT INUED 11/22/2024 [id number] 5 ORI ESQUIVEL 2024 60 [facility] PREGABALIN 75MG CAP,ORAL TAKE ONE CAPSULE BY MOUTH TWICE A DAY FOR NERVE PAIN *MAY CAUSE DROWSINE SS* ORAL DISCONT INUED 08/07/2024 [id number] 5 Kitty LOPEZ 2023 60 [facility] PREGABALIN 75MG CAP,ORAL TAKE ONE CAPSULE BY MOUTH TWICE A DAY FOR NERVE PAIN *MAY CAUSE DROWSINE SS* ORAL DISCONT INUED 04/26/2024 [id number] 4 IZABELA RODRIGUEZ AM 2023 60 [facility] PSYLLIUM PWDR,ORAL MIX AND DRINK 1 TABLESPO ONFUL BY MOUTH ONCE A DAY FOR FIBER SUPPLEME NTATION MIX IN GLASS OF WATER/JU ICE. FLAVOR SUBSTITU TIONS MAY/WILL OCCUR AND SPECIFIC VARIETIE S WILL NOT BE PROVIDED . ORAL ACTIVE 12/08/2025 [id number] 5 ORI ESQUIVEL 2024 390 [facility] PYRIDOXINE HCL 50MG TAB TAKE ONE TABLET BY MOUTH EVERY DAY ORAL ACTIVE KHALIF BOUCHER 2018 [facility] SERTRALINE HCL 25MG TAB TAKE ONE TABLET BY MOUTH EVERY MORNING ORAL ACTIVE 03/16/2026 [id number] TRISTAN AVILAA N 2024 30 [facility] DIVISIO N SERTRALINE HCL 50MG TAB TAKE ONE-HALF TABLET BY MOUTH EVERY MORNING FOR 4 DAYS, THEN TAKE ONE TABLET EVERY MORNING FOR 15 DAYS, THEN TAKE ONE AND ONE-HALF TABLETS EVERY MORNING FOR DEPRESSI ON ORAL DISCONT INUED (EDIT) 04/12/2025 [id number] SIJERRY GARDNERPRATI BHA N 2024 79 [facility] DIVISIO N SUMATRIPTAN SUCCINATE 50MG TAB TAKE ONE TABLET BY MOUTH ONE-TIME FOR HEADACHE TAKE AT ONSET OF HEADACHE . MAY REPEAT AFTER 2 HOURS. NOT TO EXCEED 2 TABLETS IN 24 HOURS. ORAL ACTIVE 04/09/2025 [id number] 5 Rachael FABIAN 2024 9 [facility] DIVISIO N SUMATRIPTAN SUCCINATE 50MG TAB TAKE ONE TABLET BY MOUTH ONE-TIME FOR HEADACHE TAKE AT ONSET OF HEADACHE . MAY REPEAT AFTER 2 HOURS. NOT TO EXCEED 2 TABLETS IN 24 HOURS. ORAL DISCONT INUED 01/06/2025 [id number] 5 ORI ESQUIVEL 2024 9 [facility] DIVISIO N SUMATRIPTAN SUCCINATE 50MG TAB TAKE ONE TABLET BY MOUTH ONE-TIME TAKE AT ONSET OF HEADACHE . MAY REPEAT AFTER 2 HOURS. NOT TO EXCEED 2 TABLETS IN 24 HOURS. ORAL DISCONT INUED 04/23/2024 [id number] 5 ORI ESQUIVEL 2024 9 [facility] DIVISIO N SUMATRIPTAN SUCCINATE 50MG TAB TAKE ONE TABLET BY MOUTH ONE-TIME TAKE AT ONSET OF HEADACHE . MAY REPEAT AFTER 2 HOURS. NOT TO EXCEED 2 TABLETS IN 24 HOURS. ORAL 07/24/2024 [id number] 5 ORI ESQUIVEL 2024 9 [facility] VALERIAN LIQUID TAKE 200 MG BY MOUTH AT BEDTIME ORAL ACTIVE KHALIF BOUCHER 2018 [facility] Allergies, Adverse Reactions, Alerts Combined list of allergies from Department of Defense and Veterans Affairs facilities. It does not include entries that were removed or entered in error. Substance Category Reaction Severity Reaction type Status Date Reported Comments Source CELEBREX Propensity to adverse reactions to drug (finding) Skin ulcer active 7 [facility] CELEBREX Propensity to adverse reactions to drug (finding) Skin ulcer MODERATE active 3 [facility] CELEBREX Propensity to adverse reactions to drug (finding) Skin lesion active 4 [facility] NEOSPORIN Propensity to adverse reactions to drug (finding) Eruption active 4 [facility] NEOSPORIN OINTMENT Propensity to adverse reactions to drug (finding) Eruption active 7 [facility] NEOSPORIN OINTMENT Propensity to adverse reactions to drug (finding) Eruption MODERATE active 3 [facility] PENICILLIN Propensity to adverse reactions to drug (finding) Anaphylaxis active 7 [facility] PENICILLIN Propensity to adverse reactions to drug (finding) Anaphylaxis SEVERE active 3 [facility] PENICILLIN Propensity to adverse reactions to drug (finding) Lip swelling, Pharyngeal swelling active 4 [facility] SILVER SULFADIAZINE Propensity to adverse reactions to drug (finding) Skin ulcer active 7 [facility] SIMVASTATIN Propensity to adverse reactions to drug (finding) Cramp in lower limb, Headache, Constipatio n active 7 [facility] SIMVASTATIN Propensity to adverse reactions to drug (finding) Constipatio n, Headache MILD active 3 [facility] SIMVASTATIN Propensity to adverse reactions to drug (finding) Stomach cramps active 4 [facility] TETRACYCLINE Propensity to adverse reactions to drug (finding) Anaphylaxis active 7 [facility] TETRACYCLINE Propensity to adverse reactions to drug (finding) Anaphylaxis SEVERE active 3 [facility] TETRACYCLINE Propensity to adverse reactions to drug (finding) Lip swelling, Pharyngeal swelling active 4 [facility] Immunizations Combined list of available immunizations from the Department of Defense and Veterans Affairs facilities. Immunization Series Date Given Administered By Site Reaction Lot Number CVX Code Drug Environmental Marketer Status Comments Source COVID-19 (MODERNA), MRNA, LNP-S, PF, 100 MCG/0.5ML DOSE OR 50 MCG/0.25ML DOSE 2 2020 207 complet ed HISTORICA L INFORMATI ON - FROM OTHER [facility], [facility] COVID-19 (MODERNA), MRNA, LNP-S, PF, 100 MCG/0.5ML DOSE OR 50 MCG/0.25ML DOSE 1 2020 207 complet ed HISTORICA L INFORMATI ON - FROM OTHER [facility], [facility] PNEUMOCOCCAL CONJUGATE PCV 13 2013 133 complet ed patient record [facility] STAN INFLUENZA, SPLIT (INCL. PURIFIED SURFACE ANTIGEN) 2005 15 complet ed HISTORICA L INFORMATI ON - FROM OTHER REGISTRY, [facility] INFLUENZA, SPLIT (INCL. PURIFIED SURFACE ANTIGEN) 2004 15 complet ed HISTORICA L INFORMATI ON - FROM OTHER REGISTRY, [facility] Results Combined list of recent chemistry, hematology and other laboratory results from Department of Defense and Veterans Affairs, ranging from 15 months to all on record, depending upon the facility. Order Name Results Value Reference Range Date Interpretation Specimen Comments Source PROTHROMB IN GENE ANALYSIS FACTOR II MUT F2 GENE [id number] [GENOTYPE] IN BLOOD OR TISSUE BY MOLECULAR GENETICS METHOD NOMINAL NEG 12/15 /2025 Specimen Type: BLOOD Comment: RESULT: [id number] VARIANT NOT DETECTED INTERPRETAT ION: This individual is negative (normal) for the [id number] variant in the Prothrombin /Factor II gene. Increased risk of thrombophil ia can be caused by a variety of genetic and non-genetic factors not screened for by this assay. Ordering Provider: MABLE FABIAN Report Released Date/Time: Mar 01, 2025 09:36 AM Reporting Lab: [address] [address] Performing Lab: [address] [facility] PROTEIN S ACTIVITY( STL-MA-PB ) PROTEIN S ACTUAL/NORM AL IN PLATELET POOR PLASMA BY COAGULATION ASSAY 94 70 - 150 03/08 Specimen Type: PLASMA Comment: [facility], [address] [place] [address] Juan Hassan M.D., Ph.D., Director of Laboratorie s , CLIA [id number] Ordering Provider: MABLE FABIAN Report Released Date/Time: Mar 01, 2025 09:36 AM Reporting Lab: [address] [address] Performing Lab: [address] [facility] PROTEIN URINE PROTEIN [MASS/VOLUM E] IN URINE 20.5 mg/dL 03/08 Specimen Type: URINE No comment entered. Ordering Provider: MABLE FABIAN Report Released Date/Time: Mar 01, 2025 09:36 AM Reporting Lab: [address] [address] Performing Lab: [address] [address] [facility] CREATININ E URINE/OTH ERS CREATININE [MASS/VOLUM E] IN URINE 249.6 mg/dL 63 - 166 03/08 H Specimen Type: URINE No comment entered. Ordering Provider: MABLE FABIAN M Report Released Date/Time: Mar 01, 2025 09:36 AM Reporting Lab: [address] [address] Performing Lab: [facility] [address] [place] [address] [facility] MICRAL/CR EAT PROFILE (STL) ALBUMIN [MASS/VOLUM E] IN URINE 33.1 mg/L 03/08 Specimen Type: URINE No comment entered. Ordering Provider: MABLE FABIAN M Report Released Date/Time: Mar 01, 2025 09:36 AM Reporting Lab: [address] [address] Performing Lab: [address] [address] [facility] MICRAL/CR EAT PROFILE (L) ALBUMIN/CRE ATININE [MASS RATIO] IN URINE 13 mg/g 0 - 29 03/08 Specimen Type: URINE No comment entered. Ordering Provider: MABLE FABIAN Report Released Date/Time: Mar 01, 2025 09:36 AM Reporting Lab: [address] [address] Performing Lab: [address] [address] [facility] MICRAL/CR EAT PROFILE (STL) CREATININE [MASS/VOLUM E] IN URINE 251.3 mg/dL 63 - 166 03/08 H Specimen Type: URINE No comment entered. Ordering Provider: MABLE FABIAN M Report Released Date/Time: Mar 01, 2025 09:36 AM Reporting Lab: [address] [address] Performing Lab: [address] [address] [facility] PT/INR NEW (STL-ND) PROTHROMBIN TIME (PT) 15.6 s 9.4 - 12.5 03/08 H Specimen Type: PLASMA No comment entered. Ordering Provider: MABLE FABIAN Report Released Date/Time: Mar 01, 2025 09:36 AM Reporting Lab: [address] [address] Performing Lab: [address] [phone] PT/INR NEW ([facility]) INR IN PLATELET POOR PLASMA BY COAGULATION ASSAY 1.4 {INR} 03/08 Specimen Type: PLASMA No comment entered. Ordering Provider: MABLE FABIAN Report Released Date/Time: Mar 01, 2025 09:36 AM Reporting Lab: [place] [phone] Performing Lab: [place] [id number] APTT APTT IN PLATELET POOR PLASMA BY COAGULATION ASSAY 31.4 s 26.7 - 39.9 03/08 Specimen Type: PLASMA No comment entered. Ordering Provider: MABLE FABIAN Report Released Date/Time: Mar 01, 2025 09:36 AM Reporting Lab: [address] [address] Performing Lab: [place] [phone] [facility] GLUCOSE GLUCOSE [MASS/VOLUM E] IN SERUM OR PLASMA 134 mg/dL 72 - 99 03/08 H Specimen Type: PLASMA No comment entered. Ordering Provider: MABLE FABIAN Report Released Date/Time: Mar 01, 2025 09:36 AM Reporting Lab: [place] [phone] Performing Lab: [address] [address] [facility] TSH (MA-PB) THYROTROPIN [UNITS/VOLU ME] IN SERUM OR PLASMA 0.702 u[IU]/ mL 0.47 - 5 03/08 Specimen Type: SERUM No comment entered. Ordering Provider: MABLE FABIAN Report Released Date/Time: Mar 01, 2025 09:36 AM Reporting Lab: [place] [address] [facility] [address] Performing Lab: [address] [address] [facility] B12 COBALAMIN (VITAMIN B12) [MASS/VOLUM E] IN SERUM OR PLASMA 592 pg/mL 213 - 816 03/08 Specimen Type: SERUM No comment entered. Ordering Provider: MABLE FABIAN Report Released Date/Time: Mar 01, 2025 09:36 AM Reporting Lab: [address] [address] Performing Lab: [address] [address] [facility] Vital Signs Combined list of inpatient and outpatient Vital Signs from Department of Defense and Veterans Affairs, ranging from 12 months to all on record, depending upon the facility. Vital Sign Value Date Comments Source SYSTOLIC BLOOD PRESSURE 138 03/08/2025 12:00:00 [facility] DIASTOLIC BLOOD PRESSURE 80 03/08/2025 12:00:00 [facility] PULSE OXIMETRY 97 % 03/08/2025 12:00:00 [facility] PAIN 0 03/08/2025 12:00:00 [facility] TEMPERATURE 98.3 03/08/2025 12:00:00 [facility] PULSE 79 03/08/2025 12:00:00 [facility] RESPIRATION 18 03/08/2025 12:00:00 [facility] SYSTOLIC BLOOD PRESSURE 142 02/10/2025 08:38:00 [facility] DIASTOLIC BLOOD PRESSURE 81 02/10/2025 08:38:00 [facility] PULSE OXIMETRY 95 % 02/10/2025 08:38:00 [facility] PAIN 7 02/10/2025 08:38:00 [facility] TEMPERATURE 97.9 02/10/2025 08:38:00 [facility] PULSE 91 02/10/2025 08:38:00 [facility] RESPIRATION 18 02/10/2025 08:38:00 [facility] SYSTOLIC BLOOD PRESSURE 88 02/09/2025 11:31:00 [facility] DIASTOLIC BLOOD PRESSURE 70 02/09/2025 11:31:00 [facility] PAIN 0 02/09/2025 11:31:00 [facility] TEMPERATURE 97.9 02/09/2025 11:31:00 [facility] PULSE 83 02/09/2025 11:31:00 [facility] RESPIRATION 16 02/09/2025 11:31:00 [facility] SYSTOLIC BLOOD PRESSURE 148 02/08/2025 11:30:00 [facility] DIASTOLIC BLOOD PRESSURE 80 02/08/2025 11:30:00 [facility] PULSE OXIMETRY 96 % 02/08/2025 11:30:00 [facility] PAIN 7 02/08/2025 11:30:00 [facility] TEMPERATURE 97.3 02/08/2025 11:30:00 [facility] PULSE 96 02/08/2025 11:30:00 [facility] RESPIRATION 18 02/08/2025 11:30:00 [facility] SYSTOLIC BLOOD PRESSURE 143 08/19/2024 14:54:01 [facility] DIASTOLIC BLOOD PRESSURE 81 08/19/2024 14:54:01 [facility] PULSE OXIMETRY 96 08/19/2024 14:54:01 S Marsha [facility] PAIN 6 08/19/2024 14:54:01 [facility] TEMPERATURE 97.2 08/19/2024 14:54:01 [facility] PULSE 76 08/19/2024 14:54:01 [facility] Kristian [facility] RESPIRATION 18 08/19/2024 14:54:01 [facility] Encounters Combined list of: 1) Encounters from Department of [facility] Affairs facilities going backup to the last 18 months, not all [place] inpatient encounters are included; 2) Encounters from the Department of [facility] facilities going backup to 280 months. Location Location Details Encounter Type Encounter Number Reason For Visit Attending Provider ADM Date DC Date Status Disposition Source [facility] Outpatient Encounter [id number] BETHANY CACERES 09/26 [facility] N [facility] Outpatient Encounter [id number] HALIMA CODY 10/10 [facility] N [facility] CASE MANAGEMENT [id number] Diagnos is: ICD-10- CM Z63.79 Other stressf ul life events affecti ng family and househo Handy Preciado 10/10 [facility] N [facility] Outpatient Encounter [id number] RUDY VALERIO 10/24 [facility] N [facility] Outpatient Encounter [id number] 11/26 [facility] N [facility] Outpatient Encounter [id number] 01/01 [facility] N [facility] Outpatient Encounter [id number] KELLYJairo COELLOMANDIE A 01/01 [facility] N [facility] Outpatient Encounter [id number] MENDOZA,Jairo WILLISThom A 01/02 [facility] N [facility] Outpatient Encounter [id number] 01/09 [facility] N [facility] Outpatient Encounter [id number] 02/04 [facility] END OF LIFE COUNSELING [id number] Diagnos is: ICD-10- CM F43.12 Post-tr aumatic stress disorde r, CARMITA Cavazos L 02/10 [facility] Outpatient Encounter [id number] 02/18 [facility] Outpatient Encounter [id number] SUNNIMEGAN A 02/25 [facility] Outpatient Encounter [id number] 03/10 [facility] Outpatient Encounter [id number] 03/12 [facility] Outpatient Encounter [id number] 03/24 [facility] OFFICE O/P NEW HI 60 MIN [id number] Diagnos is: ICD-10- CM F39 Unspeci fied mood [affect nivia] disorde r AGUSTINSCOTTY LYUBOV CASTLE A N 04/08 [facility] Outpatient Encounter [id number] 04/16 [facility] En[facility] [id number] SUSANNE HARDY E 04/17 [facility] En[facility] [id number] DIETZ A 05/20 [facility] En[facility] [id number] 05/22 [facility] Encounter [id number] MEGAN MOELLER A 06/10 [facility] Encounter [id number] 06/24 [facility] Encounter [id number] TANYA CLEMENTS R 07/09 [facility] Outpatient Encounter [id number] 07/09 [facility] Encounter [id number] MEGAN MOELLERENIA A 07/13 [facility] Encounter [id number] 07/27 [facility] Outpatient Encounter [id number] 08/07 [facility] MTMS BY PHARM ADDL 15 MIN [id number] Diagnos is: ICD-10- CM E11.9 Type 2 diabete s mellitu s without complic ations MARIA ELENA ARRIETA 08/07 [facility] OFF/OP EST MAY X REQ PHY/QHP [id number] Diagnos is: ICD-10- CM R44.8 Oth symptom s and signs w general sensati ons and percept ions Jairo MENDOZA A 08/07 [facility] Outpatient Encounter [id number] 08/07 [facility] OFFICE O/P EST LOW 20 MIN [id number] Diagnos is: ICD-10- CM I87.313 Chronic venous hyperte nsion w ulcer of bilater al low extrm ALVINBERNARD ICRachael 08/07 [facility] Outpatient Encounter [id number] 08/13 [facility] Outpatient Encounter [id number] 08/13 [facility] OFFICE O/P EST MOD 30 MIN [id number] Diagnos is: ICD-10- CM F31.9 Bipolar disorde r, 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 GURUSIDDAI YA,PRATIBH A N 08/19 [facility] PT EDUCATION NOC INDIVID [id number] Diagnos is: ICD-10- CM I10 Essenti al (primar y) hyperte BRANDI Barton 08/20 [facility] MTMS BY PHARM EST 15 MIN [id number] Diagnos is: ICD-10- CM E11.9 Type 2 diabete s mellitu s without complic ations [facility] ,MARIA ELENA 08/21 [facility] Outpatient Encounter [id number] LEAH BOND 08/21 [facility] Outpatient Encounter [id number] 08/24 [facility] Outpatient Encounter [id number] 09/08 [facility] MTMS BY PHARM EST 15 MIN [id number] Diagnos is: ICD-10- CM E11.9 Type 2 diabete s mellitu s without complic ations [place] ,MARIA ELENA 09[facility] [id number] 09/21 [facility] OFFICE O/P EST MOD 30 MIN [id number] Diagnos is: ICD-10- CM F43.12 Post-tr aumatic stress disorde r, chronic GURUSIDDAI YA,PRATIBH A N 10/06 [facility] Outpatient Encounter [id number] 10/13 [facility] Outpatient Encounter [id number] 10/15 [facility] MTMS BY PHARM EST 15 MIN [id number] Diagnos is: ICD-10- CM E11.9 Type 2 diabete s mellitu s without complic ations AIDE JIMENES 11/06 [facility] Outpatient Encounter [id number] 11/23 [facility] Outpatient Encounter [id number] MEGAN MOELLER RVENIA A 12/02 [facility] Outpatient Encounter [id number] 12/07 [facility] OFFICE O/P EST HI 40 MIN [id number] Diagnos is: ICD-10- CM E11.40 Type 2 diabete s mellitu s with diabeti c neuropa thy, unsp BERNARD ESQUIVEL ICK 12/07 [facility] OFFICE O/P EST MOD 30 MIN [id number] Diagnos is: ICD-10- CM F43.12 Post-tr aumatic stress disorde r, chronic GURUSIDDAI YA,PRATIBH A N 12/07 [facility] MTMS BY PHARM EST 15 MIN [id number] Diagnos is: ICD-10- CM E11.9 Type 2 diabete s mellitu s without complic ations MARIA ELENA ARRIETA 12/18 [facility] Outpatient Encounter [id number] 12/30 [facility] Outpatient Encounter [id number] Jairo MENDOZA A 12/31 [facility] Outpatient Encounter [id number] 01/01 [facility] PH1 ASSMT&MGMT NQHP 11-20 [id number] [id number] Diagnos is: ICD-10- CM F41.9 Anxiety disorde r, 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 LUDYSH DARIO G 01/01 [facility] Outpatient Encounter [id number] Jairo MENDOZA A 01/05 [facility] Outpatient Encounter [id number] 01/06 [facility] Outpatient Encounter [id number] 01/07 [facility] Outpatient Encounter [id number] 01/07 [facility] Outpatient Encounter [id number] 01/07 [facility] N [facility] Outpatient Encounter [id number] BERNARD ESQUIVEL ICK 01/08 [facility] Outpatient Encounter [id number] Jairo MENDOZA A 01/08 [facility] PH1 ASSMT&MGMT NQHP 11-20 [id number] Diagnos is: ICD-10- CM R68.89 Other general symptom s and signs Jairo MENDOZA A 01/08 [facility] Outpatient Encounter [id number] 01/08 [facility] Outpatient Encounter [id number] 01/10 [facility] Outpatient Encounter [id number] 01/10 [facility] SYNCH AUDIO-ONLY EST LOW 20 [id number] Diagnos is: ICD-10- CM A08.4 Viral intesti nal infecti on, unspeci ALEX Suarez 01/11 [facility] Outpatient Encounter [id number] Jairo MENDOZA A 01/11 [facility] Outpatient Encounter [id number] Jairo MENDOZA A 01/11 [facility] Outpatient Encounter [id number] Rachael POPE 01/12 [facility] En[facility] [id number] [id number] 01/14 [facility] Outpatient Encounter [id number] 01/18 [facility] Outpatient Encounter [id number] 01/18 [facility] Encounter [id number] 3 01/20 [facility] Encounter [id number] 3 01/22 [facility] Encounter [id number] BERNARD ESQUIVEL ICRachael 01/23 [facility] Outpatient Encounter [id number] 1 01/24 [facility] Outpatient Encounter [id number] 01/24 [facility] SYNCH AUDIO-ONLY EST LOW 20 [id number] Diagnos is: ICD-10- CM B34.9 Viral infecti on, unspeci SRIRAM Foster 01/24 [facility] Outpatient Encounter [id number] 01/25 [facility] Encounter [id number] 01/25 [facility] N [facility] Outpatient Encounter [id number] 5 01/25 [facility] Outpatient Encounter [id number] [id number] 01/25 [facility] Outpatient Encounter [id number] 01/25 [facility] Outpatient Encounter [id number] 01/26 [facility] Outpatient Encounter [id number] BERNARD ESQUIVEL ICRachael 01/27 [facility] RN CARE EA 15 MIN HH/HOSPICE [id number] Diagnos is: ICD-10- CM E11.9 Type 2 diabete s mellitu s without complic ations AMIE SHAFFER S 01/27 [facility] Outpatient Encounter [id number] 02/01 [facility] Outpatient Encounter [id number] 02/03 [facility] Outpatient Encounter [id number] Diagnos is: ICD-10- CM E11.9 Type 2 diabete s mellitu s without complic ations HOANG FABIAN 02/03 [facility] Outpatient Encounter [id number] BERNARD ESQUIVEL SAI 02/07 [facility] RN CARE EA 15 MIN HH/HOSPICE [id number] Diagnos is: ICD-10- CM E11.9 Type 2 diabete s mellitu s without complic ations DEEFREDRICKAMIE S 02/08 [facility] Outpatient Encounter [id number] 02/08 [facility] DOPPLER ECHO COLOR FLOW MAPG [id number] [id number] Diagnos is: ICD-10- CM I48.91 Unspeci fied atrial fibrill ation BRIDGET CRAWFORD 02/09 [facility] EMERGENCY DEPT VISIT [facility] [id number] Diagnos is: ICD-10- CM R53.1 Sohail Maldonado 02/09 [facility] Outpatient Encounter [id number] 02/09 [facility] Outpatient Encounter [id number] 02/09 [facility] 1ST HOSP IP/OBS HIGH 75 [id number] [id number] Diagnos is: ICD-10- CM I26.09 Other pulmona ry embolis m with acute cor pulmona KATHERINE Salazar 02/09 [facility] Inpatient Encounter [id number] [id number] Admit Reason: SYNCOPE ONEB,MED 02/09 [facility] Inpatient Encounter [id number] [id number] JESSE BURGOS 02/09 [facility] Inpatient Encounter [id number] [id number] [facility] CHAMBERLAIN L 02/09 [facility] Inpatient Encounter [id number] WU CHAMBERLAIN L 02/09 [facility] Inpatient Encounter [id number] WU CHAMBERLAIN L 02/09 [facility] Inpatient Encounter [id number] 02/09 [facility] Inpatient Encounter [id number] 02/10 [facility] Inpatient Encounter [id number] AMY ROSS 02/10 [facility] Inpatient Encounter [id number] AMY ROSS 02/10 [facility] Inpatient Encounter [id number] JENNIFER ROSSHandy Last 02/10 [facility] Inpatient Encounter [id number] JENNIFER ROSSHandy Last 02/10 [facility] NQHP OL DIG ASSMT&MGMT 5-10 [id number] Diagnos is: ICD-10- CM Z86.718 Persona l history of other venous thrombo sis and embolis MYA Moore 02/10 [facility] MTMS BY PHARM CAT SWAMPER 15 MIN [id number] Diagnos is: ICD-10- CM Z51.81 Encount er for therape utic drug level monitor MYA Jones 02/10 [facility] Inpatient Encounter [id number] Thom MONTES 02/10 [facility] Inpatient Encounter [id number] 02/10 [facility] Inpatient Encounter [id number] JESSE BURGOS 02/10 [facility] Inpatient Encounter [id number] Thom MONTES 02/10 [facility] Inpatient Encounter [id number] SIMONThom E 02/10 [facility] MEDIA AID JACK STRIP ASSEMBLER INDIVIDU [id number] Diagnos is: ICD-10- CM Z71.81 Spiritu al or religio us disability counselor GABRIEL Frey 02/10 [facility] MTMS BY PHARM ADDL 15 MIN [id number] Diagnos is: ICD-10- CM Z51.81 Encount er for therape utic drug level monitor MYA Jones 02/11 [facility] Outpatient Encounter [id number] 02/11 [facility] SYNCH AUDIO-ONLY EST MOD 30 [id number] Diagnos is: ICD-10- CM F32.A Depress ion, 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 GURUSIDDAI YA,PRATIBH A N 02/11 [facility] PH1 ASSMT&MGMT NQHP 21-30 [id number] Diagnos is: ICD-10- CM R45.851 Suicida l ideakwesio TONI Zabala 02/11 [facility] Outpatient Encounter [id number] 02/12 [facility] Outpatient Encounter [id number] MARIA ELENA ARRIETA 02/12 [facility] Outpatient Encounter [id number] TONI BAILEY S 02/12 [facility] SAFETY PLAN INTERVEN [id number] Diagnos is: ICD-10- CM R45.851 Suicida l ideatio ns TONI BAILEY S 02/12 [facility] Outpatient Encounter [id number] 02/15 [facility] Outpatient Encounter [id number] LUIZA BRAN S 02/17 [facility] PH1 ASSMT&MGMT NQHP 5-10 [id number] Diagnos is: ICD-10- CM F43.12 Post-tr aumatic stress disorde r, chronic DIETZ A 02/20 [facility] HHCP-SERV OF PT,EA 15 MIN [id number] Diagnos is: ICD-10- CM E11.40 Type 2 diabete s mellitu s with diabeti c neuropa thy, unsp BAKARI BOWERS M 02/22 [facility] EXT ECG>7D<15D REV&INTERP J [id number] [id number] Diagnos is: ICD-10- CM I48.0 Paroxys mal atrial fibrill ation JABARI ENNIS VANESA 02/22 [facility] PH1 ASSMT&MGMT NQHP 5-10 [id number] Diagnos is: ICD-10- CM E11.9 Type 2 diabete s mellitu s without complic ations FUMEY,AMIE LA S 02/22 [facility] PSYTX COMPLEX INTERACTIV E [id number] Diagnos is: ICD-10- CM F43.12 Post-tr aumatic stress disorde r, chronic TESSA-YENY NDERS,JASMYN SEA M 02/24 [facility] Outpatient Encounter [id number] Diagnos is: ICD-10- CM H54.7 Unspeci fied visual loss HOANG FABIAN M 02/25 [facility] PH1 ASSMT&MGMT NQHP 5-10 [id number] [id number] Diagnos is: ICD-10- CM 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, 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 TESSA-YENY NDERS,JASMYN SEA M 02/26 [facility] Outpatient Encounter [id number] 03/02 [facility] HHS/HOSPIC E OF CELL GENETICIST EA 15 MIN [id number] Diagnos is: ICD-10- CM E11.9 Type 2 diabete s mellitu s without complic ations FUMEY,AMIE LA S 03/08 [facility] Outpatient Encounter [id number] Diagnos is: ICD-10- CM D64.9 Anemia, 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 HOANG FABIAN M 03/09 [facility] Outpatient Encounter [id number] 03/10 [facility] NQ OL DIG ASSMT&MGMT 21+ [id number] Diagnos is: ICD-10- CM Z51.81 Encount er for therape utic drug level monitor SAM Jenkins 03/10 [facility] Outpatient Encounter [id number] 03/10 [facility] Outpatient Encounter [id number] 03/10 [facility] Outpatient Encounter [id number] Diagnos is: ICD-10- CM E11.9 Type 2 diabete s mellitu s without complic ations HOANG FABIAN M 03/10 [facility] NQHP OL DIG ASSMT&MGMT 21+ [id number] Diagnos is: ICD-10- CM 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 SAMARIA Bedolla D 03/11 [facility] Outpatient Encounter [id number] Diagnos is: ICD-10- CM M54.59 Other low back pain HOANG FABIAN M 03/15 [facility] Outpatient Encounter [id number] 03/15 [facility] OFFICE O/P EST MOD 30 MIN [id number] Diagnos is: ICD-10- CM F39 Unspeci fied mood [affect nivia] disorde r LYUBOV MORSE N 03/15 [facility] Outpatient Encounter [id number] 03/22 [facility] Social History Combined list of available smoking, tobacco, and other social history from [facility] and [facility] facilities. Social History Type Response Date Comment Sour e Tobacco smoking status NHIS VA-TOBACCO USE FORMER CIGARETTES 06/10/2024 [facility] History of tobacco use VA-TOBACCO NEVER USED OTHER TYPE 06/10/2024 [facility] History of tobacco use VA-TOBACCO FORMER USER 06/05/2023 [facility] History of tobacco use VA-TOBACCO FORMER USER 12/10/2022 [facility] History of tobacco use VA-TOBACCO FORMER USER 02/08/2022 [facility] History of tobacco use VA-TOBACCO FORMER USER 01/26/2021 [facility] History of tobacco use VA-TOBACCO QUIT 15 YRS OR MORE 11/25/2019 [facility] History of tobacco use VA-TOBACCO FORMER USER 11/19/2017 [facility] History of tobacco use NO TOBACCO FOR 7 OR MORE YEARS 12/05/2016 [facility] Plan of Care List of future care activities from Department [facility] facilities. Additional future care activities may be listed in the Assessment and Plan section. Date/Time Care Activity Care Activity Detail Facili ty 03/31/2025 AMBULATORY - MEDICINE AMBULATORY - MEDICI NE [facility]
[2025-03-23 15:26] VITALS: BP 120/58; PULSE 83; RESP 18; TEMP 36.6; O2SAT 100
[2025-03-23 17:15] VITALS: BP 125/64; PULSE 88; RESP 20; TEMP 36.6; O2SAT 97
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
[2025-03-23] MEDS: ONDANSETRON INJ 4 MG/2 ML VIAL IV PUSH (17:57)
[2025-03-23] MEDS: ACETAMINOPHEN 500 MG TABLET 1000 MG PO (17:58)
[2025-03-23 18:00] LABS: Hematocrit 41.0 % (42.0-52.0); Hemoglobin 13.4 g/dL (14.0-18.0); Immature Granulocyte Percent A 1.1 % (0-0.5); Lymphocytes Absolute Auto 1.22 K/mm3 (0.9-3.2); Mean Corpuscular HGB Conc 32.7 g/dl (32-36); Mean Corpuscular Hemoglobin 31.8 pg (26-34); Mean Corpuscular Volume 97.2 fl (80-100); Nucleated Red Blood Cells Absolute Auto 0.000 K/mm3 (0.0-0.012); Nucleated Red Blood Cells Perc 0.0 % (0.0-0.2); Platelet Count Result 126 k/mm3 (150-375); Red Blood Count 4.22 M/mm3 (4.6-6.20); White Blood Count 5.3 K/mm3 (4.5-10.0)
[2025-03-23 18:10] LABS: INR 1.1; Prothrombin Time 14.2 Seconds (11.1-14.7)
[2025-03-23 18:11] LABS: Alanine Aminotransferase 15 U/L (6-50); Albumin Level 3.6 g/dL (3.5-5.1); Alkaline Phosphatase 107 U/L (38-126); Anion Gap 8 mmol/L (4-12); Aspartate Amino Transferase 29 U/L (17-59); Bilirubin,Total 1.2 mg/dL (0.2-1.3); Blood Urea Nitrogen 7 mg/dL (9-20); Calcium 9.2 mg/dL (8.4-10.2); Carbon Dioxide 28 mmol/L (22-30); Chloride 101 mmol/L (98-107); Estimated CRCL calculation 105 ml/min; Estimated Glomerular Filt Rate > 60; Glucose 84 mg/dL (65-110); Lipase 33 U/L (23-300); Potassium 3.9 mmol/L (3.4-5.0); Sodium 137 mmol/L (137-145); Total Protein 7.0 g/dL (6.3-8.2)
[2025-03-23 18:12] LABS: Partial Thromboplastin Time 26.1 Seconds (22.3-36.8)
[2025-03-23] MEDS: SODIUM CHLORIDE 0.9% IV 1,000 ML 999 ML IV CONT (19:09)
--- OUTSIDE RECORDS SUMMARY | 2025-03-23 19:37 | XMS_ITS | Encounter Summary ---
Author Name [facility] ([place] Organization [facility] Address [address] [place] [address] Care Team Providers Care Certified Medical Technician Assistant Name Role Phone GRACE QUINN Primary Care [...] Name Patient's Relationship to Policy Medina [facility] MEDICARE SUPPLEMEN SHEILA PLANF Mar 25, 2016 PLANF [id number] [phone] ISMAELSANARAJI JOSE MARIA PATIENT [facility] MEDICARE SUPPLEMEN SHEILA PLANF Oct 23, 2010 PLANF [id number] JOSE MARIA WHITE PATIENT [facility] MEDICARE SUPPLEMEN SHEILA PLANF Mar 25, 2016 PLANF [id number] [phone] JOSE MARIA WHITE AARP MED [facility] Oct 23, 2010 PLANF [id number] [phone] JOSE MARIA WHITE PATIENT [facility] (WNR) MEDICARE ADVANTAGE [facility] (WNR) July 24, 2023 [id number] [phone] JOSE MARIA WHITE PATIENT MEDICARE (WNR) MEDICARE (M) PART A July 24, 2003 PART A [id number] [phone] JOSE MARIA WHITE PATIENT MEDICARE (WNR) MEDICARE (M) PART B July 24, 2003 PART B [id number] [phone] JOSE MARIA WHITE PATIENT MEDICARE (WNR) MEDICARE (M) PART A July 24, 2003 PART A [id number] JOSE MARIA WHITE [facility] (WNR) MEDICARE ADVANTAGE MCR (WNR) Mar 25, 2024 [id number] [phone] JOSE MARIA WHITE [facility] (WNR) MEDICARE ADVANTAGE MCR (WNR) Mar 25, 2024 H2001 [id number] [phone] JOSE MARIA WHITE PATIENT Selected Encounter This section includes the information on record at [place] for the Encounter. Date/Time Encounter Type Encounter Description Reason Pro vider Source IHE Encounter Template Text not used by [place]
--- OUTSIDE RECORDS SUMMARY | 2025-03-23 19:38 | XMS_ITS | Encounter Summary ---
Author Name [facility] [place] [place] [facility] Address [address] [place] [address] Care Team Providers Care Make Ready Worker Name Role Phone GRACE QUINN Primary Care [...] [place] Unavailable Unavailable TATIANNA MONROE Unavailable Unavailable PATRCIE OATES Unavailable Unavail able HERO SHAFFER Unavailable [...] Name Patient's Relationship to Policy Medina [facility] MEDICARE SUPPLEMEN SHEILA PLANF Mar 25, 2016 PLANF [id number] [phone] ISMAELSANARAJI JOSE MARIA PATIENT [facility] MEDICARE SUPPLEMEN SHEILA PLANF Oct 23, 2010 PLANF [id number] [phone] JOSE MARIA WHITE PATIENT [facility] MEDICARE SUPPLEMEN SHEILA PLANF Mar 25, 2016 PLANF [id number] JOSE MARIA WHITE AARP MED [facility] Oct 23, 2010 PLANF [id number] [phone] JOSE MARIA WHITE PATIENT [facility] (WNR) MEDICARE ADVANTAGE [facility] (WNR) July 24, 2023 [id number] [id number] JOSE MARIA WHITE PATIENT MEDICARE (WNR) MEDICARE (M) PART B July 24, 2003 PART B [id number] JOSE MARIA WHITE PATIENT MEDICARE (WNR) MEDICARE (M) PART A July 24, 2003 PART A [id number] JOSE MARIA WHITE PATIENT MEDICARE (WNR) MEDICARE (M) PART A July 24, 2003 PART A [id number] JOSE MARIA WHITE [facility] (WNR) MEDICARE ADVANTAGE MCR (WNR) Mar 25, 2024 [id number] [phone] JOSE MARIA WHITE [facility] (WNR) MEDICARE ADVANTAGE MCR (WNR) Mar 25, 2024 H2001 [id number] [phone] JOSE MARIA WHITE PATIENT Selected Encounter This section includes the information on record at [place] for the Encounter. Date/Time Encounter Type Encounter Description Reason Pro vider Source IHE Encounter Template Text not used by [place]
--- OUTSIDE RECORDS SUMMARY | 2025-03-23 19:41 | XMS_ITS | Encounter Summary ---
Author Name [facility] ([place]) [facility] Address [address] [place] [address] Care Team Providers Care In Process Inspector Name Role Phone GRACE QUINN Primary Care [...] Medina's Name Patient's Relationship to Policy Medina [facility] MEDICARE SUPPLEMEN SHEILA PLANF Mar 25, 2016 PLANF [id number] [phone] ISMAELSANARAJI JOSE MARIA PATIENT [facility] MEDICARE SUPPLEMEN SHEILA PLANF Oct 23, 2010 PLANF [id number] [phone] JOSE MARIA WHITE PATIENT [facility] MEDICARE SUPPLEMEN SHEILA PLANF Mar 25, 2016 PLANF [id number] JOSE MARIA WHITE AARP MED [facility] SHE[facility] Oct 23, 2010 PLANF [id number] [phone] JOSE MARIA WHITE [facility] ADVANTAGE [facility] (WNR) July 24, 2023 [id number] [id number] JOSE MARIA WHITE PATIENT MEDICARE (WNR) MEDICARE (M) PART A July 24, 2003 PART A [id number] [phone] JOSE MARIA WHITE PATIENT MEDICARE (WNR) MEDICARE (M) PART B July 24, 2003 PART B [id number] JOSE MARIA WHITE PATIENT MEDICARE (WNR) MEDICARE (M) PART A July 24, 2003 PART A [id number] [phone] JOSE MARIA WHITE [facility] (WNR) MEDICARE ADVANTAGE MCR (WNR) Mar 25, 2024 [id number] [phone] JOSE MARIA WHITE [facility] (WNR) MEDICARE ADVANTAGE MCR (WNR) Mar 25, 2024 H2001 [id number] [phone] JOSE MARIA WHITE PATIENT Selected Encounter This section includes the information on record at [place] for the Encounter. Date/Time Encounter Type Encounter Description Reason Pro vider Source IHE Encounter Template Text not used by [place]
--- OUTSIDE RECORDS SUMMARY | 2025-03-23 19:41 | XMS_ITS | Encounter Summary ---
Author Name [facility] ([place] Organization [facility] Address [address] [place] [address] Care Team Providers Care Complaint Supervisor Name Role Phone GRACE QUINN Primary [...] Medina's Name Patient's Relationship to Policy Medina [facility] MEDICARE SUPPLEMEN SHEILA PLANF Mar 25, 2016 PLANF [id number] [phone] ISMAELSANARAJI JOSE MARIA PATIENT [facility] MEDICARE SUPPLEMEN SHEILA PLANF Oct 23, 2010 PLANF [id number] [phone] JOSE MARIA WHITE PATIENT [facility] MEDICARE SUPPLEMEN SHEILA PLANF Mar 25, 2016 PLANF [id number] [phone] JOSE MARIA [place] AARP MED [facility] SHE[facility] Oct 23, 2010 PLANF [id number] [phone] JOSE MARIA WHITE [facility] AD[facility] (WNR) July 24, 2023 [id number] [phone] JOSE MARIA WHITE PATIENT MEDICARE (WNR) MEDICARE (M) PART A July 24, 2003 PART A [id number] [phone] JOSE MARIA WHITE PATIENT MEDICARE (WNR) MEDICARE (M) PART B July 24, 2003 PART B [id number] JOSE MARIA WHITE PATIENT MEDICARE (WNR) MEDICARE (M) PART A July 24, 2003 PART A [id number] JOSE MARIA WHITE [facility] (WNR) MEDICARE ADVANTAGE MCR (WNR) Mar 25, 2024 [id number] [phone] JOSE MARIA WHITE [facility] (WNR) MEDICARE ADVANTAGE MCR (WNR) Mar 25, 2024 H2001 [id number] [phone] JOSE MARIA WHITE PATIENT Selected Encounter This section includes the information on record at [place] for the Encounter. Date/Time Encounter Type Encounter Description Reason Pro vider Source IHE Encounter Template Text not used by [place]
[2025-03-23] MEDS: oxyCODONE HCL (*CRX) 2.5 MG TAB IR PO (19:50)
--- NOTE | 2025-03-23 19:52 | PC.NURSE ---
MD verbally states he does not want the urine sample for pt. Once pt fluids are done pt is up for discharge.
[2025-03-23 20:21] VITALS: BP 168/87; PULSE 91; RESP 15; O2SAT 96
== END 2025-03-23 20:34 | disposition home or self-care (01) ==
PROVIDERS: Physician Assistant; Emergency Provider Student in an Organized Health Care Education/Training Program
DX: K52.9 Noninfective gastroenteritis and colitis, unspecified (principal); I10 Essential (primary) hypertension; E11.9 Type 2 diabetes mellitus without complications; E66.9 Obesity, unspecified; Z68.34 Body mass index [BMI] 34.0-34.9, adult; K74.60 Unspecified cirrhosis of liver; Z66 Do not resuscitate; Z87.820 Personal history of traumatic brain injury; Z87.891 Personal history of nicotine dependence; Z89.012 Acquired absence of left thumb; Z79.84 Long term (current) use of oral hypoglycemic drugs; Z79.899 Other long term (current) drug therapy; Z79.82 Long term (current) use of aspirin; Z79.01 Long term (current) use of anticoagulants; N20.0 Calculus of kidney; R18.8 Other ascites; R16.1 Splenomegaly, not elsewhere classified
CPT/HCPCS: 36415; 70450; 74177; 80053; 83605; 83690; 85025; 85610; 85730; 86850; 86900; 86901; 96361; 96374; 99284; A9270; J2405; J7030; Q9967